=== PATIENT | male | born 1955 | race Caucasian/White ===

== ENCOUNTER → 2024-01-24 | Outpatient (REF) | payer MEDICARE, MEDICAID, SELFPAY ==
[2024-01-24 09:38] LABS: Hematocrit 41.5 % (40-54); Hemoglobin 13.3 g/dL (13.0-16.5); Mean Corpuscular Hgb 29.3 pg (27.0-32.0); Mean Corpuscular Volume 91.4 fL (80-94); Mean Platelet Vol. 10.3 fl (6.2-12.0); Platelet Count 315 K/mm3 (150-450); RBC Distribution Width SD 43.4 fl (35.1-43.9); Red Blood Count 4.54 M/mm3 (4.6-6.2); White Blood Count 6.9 K/mm3 (4.4-11.0)
[2024-01-24 10:08] LABS: ALB/GLOB Ratio 0.9 RATIO (0.9-2.4); AST(SGOT) 23 U/L (15-37); Alanine Aminotransfer ALT/SGPT 22 U/L (16-61); Albumin, Serum 3.4 g/dL (3.2-5.0); Alkaline Phosphatase 74 U/L (45-117); Anion Gap 6 (5-15); BUN 23 mg/dL (7-18); Calcium,Total 9.5 mg/dL (8.5-10.1); Chloride 105 mmol/L (98-107); Cholesterol 112 mg/dL (200); EST Glomerular Filtration Rate 79 mL/min (>60); Est Glom Filt Rate - Afr Amer 96 mL/min (>60); Globulin 3.7 g/dL (2.2-4.2); Glucose 82 mg/dL (74-106); High Density Lipoprotein 28 mg/dL; Potassium 3.7 mmol/L (3.5-5.1); Protein, Total 7.1 g/dL (6.4-8.2); Sodium Level 139 mmol/L (136-145); Triglycerides 112 mg/dL; Very Low Density Lipoprotein 22 mg/dL (5-40)
== END ==
LOC: OLS.ACW300 05:00
PROVIDERS: Visit Provider Family Medicine
DX: Z79.899 Other long term (current) drug therapy (principal); D73.5 Infarction of spleen; K20.90 Esophagitis, unspecified without bleeding; R53.1 Weakness; R53.81 Other malaise
CPT/HCPCS: 36415; 80053; 80061; 83695; 85027

== ENCOUNTER → 2024-01-26 | Outpatient (REF) | payer MEDICARE, MEDICAID, SELFPAY ==
[2024-01-26 10:10] LABS: Anion Gap 5 (5-15); BUN 24 mg/dL (7-18); BUN/Creat Ratio 24.6 RATIO (10-20); Chloride 105 mmol/L (98-107); Creatinine, Serum 0.97 mg/dL (0.70-1.30); EST Glomerular Filtration Rate 81 mL/min (>60); Est Glom Filt Rate - Afr Amer 98 mL/min (>60); Glucose 84 mg/dL (74-106); Sodium Level 139 mmol/L (136-145)
== END ==
LOC: OLS.ACW300 05:00
PROVIDERS: Visit Provider Family Medicine
DX: Z79.899 Other long term (current) drug therapy (principal)
CPT/HCPCS: 36415; 80048

== ENCOUNTER → 2024-06-08 | Outpatient (REF) | payer MEDICARE, MEDICAID, SELFPAY ==
[2024-06-08 08:39] LABS: Hemoglobin 12.6 g/dL (13.0-16.5); Mean Corp Hgb Conc 32.3 g/dL (32-36); Mean Corpuscular Hgb 29.5 pg (27.0-32.0); Mean Corpuscular Volume 91.3 fL (80-94); Mean Platelet Vol. 9.9 fl (6.2-12.0); Platelet Count 274 K/mm3 (150-450); RBC Distribution Width SD 43.3 fl (35.1-43.9); Red Blood Count 4.27 M/mm3 (4.6-6.2); White Blood Count 7.4 K/mm3 (4.4-11.0)
[2024-06-08 08:56] LABS: Anion Gap 3 (5-15); BUN 33 mg/dL (7-18); BUN/Creat Ratio 36.1 RATIO (10-20); Chloride 107 mmol/L (98-107); Creatinine, Serum 0.92 mg/dL (0.70-1.30); EST Glomerular Filtration Rate 87 mL/min (>60); Est Glom Filt Rate - Afr Amer 106 mL/min (>60); Glucose 98 mg/dL (74-106); Potassium 4.2 mmol/L (3.5-5.1); Sodium Level 140 mmol/L (136-145)
== END ==
LOC: OLS.ACW300 05:00
PROVIDERS: Visit Provider Family Medicine
DX: Z79.899 Other long term (current) drug therapy (principal)
CPT/HCPCS: 36415; 80048; 85027

== ENCOUNTER → 2024-08-16 | Outpatient (REF) | payer MEDICARE, MEDICAID, SELFPAY ==
[2024-08-16 07:42] LABS: AST(SGOT) 12 U/L (15-37); Alanine Aminotransfer ALT/SGPT 18 U/L (16-61); Albumin, Serum 3.5 g/dL (3.2-5.0); Alkaline Phosphatase 77 U/L (45-117); Bilirubin, Direct 0.15 mg/dL (0.00-0.30); Cholesterol 121 mg/dL (200); Globulin 3.5 g/dL (2.2-4.2); High Density Lipoprotein 29 mg/dL; Triglycerides 104 mg/dL; Very Low Density Lipoprotein 21 mg/dL (5-40)
== END ==
LOC: OLS.ACW300 05:00
PROVIDERS: Visit Provider Family Medicine
DX: D73.5 Infarction of spleen (principal); K20.90 Esophagitis, unspecified without bleeding; K31.84 Gastroparesis; R13.12 Dysphagia, oropharyngeal phase; R53.1 Weakness; R53.81 Other malaise; Z74.1 Need for assistance with personal care; Z79.899 Other long term (current) drug therapy
CPT/HCPCS: 36415; 80061; 80076

== ENCOUNTER → 2024-09-18 | Outpatient (REF) | payer MEDICARE, MEDICAID, SELFPAY ==
[2024-09-18 09:28] LABS: Hematocrit 38.4 % (40-54); Hemoglobin 12.5 g/dL (13.0-16.5); Mean Corp Hgb Conc 32.6 g/dL (32-36); Mean Corpuscular Hgb 29.8 pg (27.0-32.0); Mean Corpuscular Volume 91.6 fL (80-94); Mean Platelet Vol. 9.7 fl (6.2-12.0); Platelet Count 283 K/mm3 (150-450); RBC Distribution Width CV 12.8 % (11.6-14.6); RBC Distribution Width SD 42.8 fl (35.1-43.9); Red Blood Count 4.19 M/mm3 (4.6-6.2)
== END ==
LOC: OLS.ACW300 05:00
PROVIDERS: Visit Provider Family Medicine
DX: D73.5 Infarction of spleen (principal); K20.90 Esophagitis, unspecified without bleeding; K31.84 Gastroparesis; R13.12 Dysphagia, oropharyngeal phase; R53.1 Weakness; R53.81 Other malaise
CPT/HCPCS: 36415; 85027

== ENCOUNTER → 2024-12-17 05:00 | Outpatient (REF) | payer MEDICARE, MEDICAID, SELFPAY ==
[2024-12-17 09:38] LABS: AST(SGOT) 14 U/L (15-37); Alanine Aminotransfer ALT/SGPT 21 U/L (16-61); Albumin, Serum 3.2 g/dL (3.2-5.0); Alkaline Phosphatase 75 U/L (45-117); Anion Gap 5 (5-15); BUN 25 mg/dL (7-18); BUN/Creat Ratio 27.8 RATIO (10-20); Bilirubin, Direct 0.17 mg/dL (0.00-0.30); Chloride 106 mmol/L (98-107); Cholesterol 95 mg/dL (200); EST Glomerular Filtration Rate 89 mL/min (>60); Est Glom Filt Rate - Afr Amer 108 mL/min (>60); Globulin 3.7 g/dL (2.2-4.2); Glucose 85 mg/dL (74-106); High Density Lipoprotein 31 mg/dL; Protein, Total 6.9 g/dL (6.4-8.2); Sodium Level 140 mmol/L (136-145); Triglycerides 93 mg/dL; Very Low Density Lipoprotein 19 mg/dL (5-40)
== END ==
LOC: OLS.ACW300 05:00
PROVIDERS: Visit Provider Family Medicine
DX: D73.5 Infarction of spleen (principal); K20.90 Esophagitis, unspecified without bleeding; K31.84 Gastroparesis; Z74.1 Need for assistance with personal care; R13.12 Dysphagia, oropharyngeal phase; R53.1 Weakness; R53.81 Other malaise
CPT/HCPCS: 36415; 80048; 80061; 80076

== ENCOUNTER → 2025-02-06 | Outpatient (REF) | payer MEDICARE, MEDICAID, SELFPAY ==
[2025-02-06 09:54] LABS: Hematocrit 36.9 % (40-54); Hemoglobin 12.2 g/dL (13.0-16.5); Mean Corp Hgb Conc 33.1 g/dL (32-36); Mean Corpuscular Hgb 29.8 pg (27.0-32.0); Mean Corpuscular Volume 90.2 fL (80-94); Mean Platelet Vol. 9.8 fl (6.2-12.0); Platelet Count 385 K/mm3 (150-450); RBC Distribution Width CV 12.1 % (11.6-14.6); RBC Distribution Width SD 39.9 fl (35.1-43.9); Red Blood Count 4.09 M/mm3 (4.6-6.2); White Blood Count 8.3 K/mm3 (4.4-11.0)
[2025-02-06 10:11] LABS: ALB/GLOB Ratio 1.2 RATIO (0.9-2.4); AST(SGOT) 18 U/L (<=37); Alanine Aminotransfer ALT/SGPT 18 U/L (<=46); Albumin, Serum 3.8 g/dL (3.4-4.8); Alkaline Phosphatase 81 U/L (40-129); Anion Gap 10 (5-15); BUN 26 mg/dL (4-19); BUN/Creat Ratio 28.2 RATIO (10-20); Calcium,Total 9.1 mg/dL (7.6-11.0); Carbon Dioxide 28.1 mmol/L (21.0-32.0); Chloride 101 mmol/L (98-108); EST Glomerular Filtration Rate 92 (>60); Globulin 3.1 g/dL (2.2-4.2); Glucose 103 mg/dL (70-99); Potassium 4.6 mmol/L (3.3-5.1); Protein, Total 6.9 g/dL (5.9-8.4); Sodium Level 138 mmol/L (133-145); Total Bilirubin 0.39 mg/dL (0.00-1.30)
== END ==
LOC: OLS.ACW100 05:00
PROVIDERS: Visit Provider Family Medicine
DX: D73.5 Infarction of spleen (principal); K20.90 Esophagitis, unspecified without bleeding; K31.84 Gastroparesis; R13.12 Dysphagia, oropharyngeal phase; R53.1 Weakness; R53.81 Other malaise
CPT/HCPCS: 36415; 80053; 85027

== ENCOUNTER → 2025-04-16 05:00 | Outpatient (REF) | payer MEDICARE, MEDICAID, SELFPAY ==
--- OUTSIDE RECORDS SUMMARY | 2025-04-16 04:21 | XMS RPT_ITS | CCD ---
Author Organization [facility] Care Team Providers Care C D Still Operator Name Role Phone Unavailable Primary Care Provider Unavailcitlalli e Nisha BANKS, Teodoro Arzate Primary Care Provider Teodoro Cameron MD Primary Care Provider Kelsey Sanchez Attending Unavailable Kelsey Sanchez Attending Unavailable Kelsey Sanchez Attending Unavailable Kelsey Sanchez Attending Unavailable Kelsey Sanchez Attending Unavailable Kelsey Stevens MD Primary Care Provider OMEGA FLORES Referring Unavailable SHIRA GARCIA Attending Unavailable BIANKATEODORO Primary Care Unavailable KELSEY STEVENS Primary Care Unavailable RADHA OLGUIN Attending Unavailable KELSEY STEVENS Primary Care Unavailable SANTO SALES Attending Unavailable [facility] Primary Care Unavailable RACHAEL MALHOTRA Attending Unavailable Allergies Allergy Classification Reported Allergen(s) Allergy Type Date of Onset Reaction(s) Facility (16 sources) bee venom Propensity to adverse reactions to drug 7 Anaphylaxis [facility] (1 source) Erythromycin Base Propensity to adverse reactions to drug 7 Other (See Comments) [facility] Work Phone: (20 sources) Erythromycin Drug Allergy 3 Itching [facility] Medications Current Medications Medication Drug Class(es) Dates Sig (Normalized) Sig (Original) amLODIPine 10 mg oral tablet (20 sources) Dihydropyridine Calcium Channel Courtney Start: 02-10-2023 End: 03-23-2023 take 1 tablet by mouth once daily amLODIPine (Norvasc) 10 MG tablet Take 1 tablet (10 mg) by mouth daily. Do not start before February 21, 2023. 30 tablet 02/21/2023 Active Start: 02-08-2023 End: 02-09-2023 take 5 mg by mouth once daily 5 mg, Oral, Daily, First dose on Tue02/08/23 at 1515 apixaban 5 mg oral tablet (20 sources) Factor Xa Inhibitor Start: 03-17-2023 take 1 tablet by mouth twice daily apixaban (Eliquis) 5 MG tablet Take 1 tablet (5 mg) by mouth 2 times daily. Do not start before March 17, 2023. 60 tablet 03/17/2023 Active Start: 03-17-2023 take 1 tablet by ismael th twice daily apixaban (Eliquis) 5 MG tablet Take 1 tablet (5 mg) by mouth 2 times daily. Do not start before March 17, 2023. 60 tablet 0 03/17/2023 Active Start: 03-17-2023 take 1 tablet by ismael th twice daily apixaban (Eliquis) 5 MG tablet Take 1 tablet (5 mg) by mouth 2 times daily. Do not start before March 17, 2023. 60 tablet 0 03/17/2023 Active atorvastatin 40 mg oral tablet (20 sources) HMG-CoA Reductase Inhibitor Start: 02-20-2023 End: 05-21-2023 atorvastatin (Lipitor) 40 MG tablet 1 tablet (40 mg) by Per G Tube route daily. 30 tablet 2 02/20/2023 Active Start: 02-20-2023 End: 05-21-2023 Start: 02-06-2023 End: 02-26-2023 40 mg, Per G Tube, Daily, Fi rst dose on Tue02/06/23 at 2100 Start: 04-05-2017 take 1 tablet by ismael th once daily atorvastatin (LIPITOR) 80 MG tablet Indications: Hyperlipidemia, unspecified hyperlipidemia type Take 1 tablet by mouth daily 90 tablet 3 04/05/2017 Active chlorhexidine gluconate 1.2 mg/ml mouthwash (1 source) Start: 01-26-2022 End: 02-09-2022 take 15 mL by mouth twice daily chlorhexidine (PERIDEX) 0.12 % solution Take 15 mLs by mouth 2 times daily for 14 days 420 mL 0 01/26/2022 02/09/2022 Active escitalopram 5 mg oral tablet (20 sources) Serotonin Reuptake Inhibitor Start: 06-29-2023 escitalopram (Lexapro) 5 MG tablet 06/29/2023 Active gabapentin (20 sources) Anti-epileptic Agent take 200 mg by mouth in the morning GABAPENTIN PO Take 200 mg by mouth in the morning and 200 mg in the evening. Active End: 12-21-2023 take 1 capsule by mouth in the morning gabapentin (Neurontin) 100 MG capsule Take 100 mg by mouth in the morning and 100 mg in the evening. 0 12/21/2023 Discontinued (Therapy completed) take 200 mg by mouth in the morning GABAPENTIN PO Take 200 mg by mouth in the morning and 200 mg in the evening. 0 Active hydroCHLOROthiazide 12.5 mg oral tablet (1 source) Thiazide Diuretic Start: 02-08-2017 take 1 tablet by mouth once daily hydrochlorothiazide (HYDRODIURIL) 12.5 MG tablet Indications: Coronary artery disease involving [place] coronary artery of [place] heart without angina pectoris Take 1 tablet by mouth daily 90 tablet 0 02/08/2017 Active lisinopril 20 mg oral tablet (1 source) Angiotensin Converting Enzyme Inhibitor Start: 08-31-2017 lisinopril (PRINIVIL;ZESTRIL) 20 MG tablet Indications: Coronary artery disease involving [place] coronary artery of [place] heart without angina pectoris TAKE 1 TABLET DAILY 90 tablet 3 08/31/2017 Active loratadine 10 mg disintegrating oral tablet (12 sources) take 1 tablet by mouth once daily loratadine (Claritin Reditabs) 10 MG disintegrating tablet Take 10 mg by mouth daily. Active melatonin 5 mg oral tablet (20 sources) Start: 02-08-2023 End: 03-11-2023 take 1 tablet by mouth once daily as needed for sleep melatonin 5 MG tablet Take 1 tablet (5 mg) by mouth Nightly as needed (sleep). 0 02/20/2023 Active metoclopramide 5 mg oral tablet (20 sources) Dopamine-2 Receptor Antagonist Start: 06-27-2023 take 1 tablet by mouth three times daily metoclopramide (Reglan) 5 MG tablet Take 5 mg by mouth 3 times daily. 06/27/2023 Active Start: 02-12-2023 End: 02-14-2023 take 5 mg intravenously every six hours 5 mg, IntraVENous, Every 6 hours, First dose on 02/12/23 at 1015, For 2 days nitroglycerin 0.4 mg subling ual tablet (1 source) Nitrate Vasodilator nitroGLYCERI N (NITROSTAT) 0.4 MG SL tablet Indications: Coronary artery disease involving [place] coronary artery of [place] heart without angina pectoris Place 0.4 mg under the tongue every 5 minutes as needed for Chest pain up to max of 3 total doses. If no relief, call 911. 0 Active Oxygen (20 sources) oxygen (O2) gas Inhale 2 L/min continuous. via nasal canula Active oxygen (O2) gas Inhale 2 L/min continuous. via nasal canula 0 Active pantoprazole 40 mg delayed release oral tablet (15 sources) Proton Pump Inhibitor Start: 12-28-2023 pantoprazole (ProtoNix) 40 MG EC tablet 40 mg 2 times daily. 12/28/2023 Active penicillin G potassium 5 Million Units in dextrose 5 % 100 mL IVPB (mini-bag) (1 source) Start: 01-26-2022 penicillin G potassium 5 Million Units in dextrose 5 % 100 mL IVPB (mini-bag) penicillin v potassium 500 mg oral tablet (1 source) Start: 01-26-2022 End: 02-05-2022 take 1 tablet by mouth four times daily penicillin v potassium (VEETID) 500 MG tablet Take 1 tablet by mouth 4 times daily for 10 days 40 tablet 0 01/26/2022 02/05/2022 Active potassium chloride 1.33 meq/ml oral solution (20 sources) Start: 01-20-2024 Potassium Chlo ride 20 MEQ/15ML (10%) solution 10 mEq daily. 01/20/2024 Active Start: 03-08-2023 End: 03-10-2023 potassium chloride (Klor-Con ) packet 40 mEq Start: 02-11-2023 End: 02-11-2023 40 mEq, Per G Tube, Once, On Tue02/11/23 at 0945, For 1 dose Dissolve each packet in 4 ounces of water = 5 mEq per 1 oz fluid. varenicline 0.5 mg oral tablet (1 source) Partial Cholinergic Nicotinic Agonist Start: 03-17-2017 varenicline (CHANTIX STARTING MONTH ) 0.5 MG X 11 & 1 MG X 42 tablet Take by mouth. 1 each 1 03/17/2017 Active Completed/Discontinued Medications Medication Drug Class(es) Dates Sig (Normalized) Sig (Original) Acetaminophen (9 sources) Start: 03-06-2023 End: 03-11-2023 take 1 tablet by mouth every six hours as needed for pain and fever acetaminophen (Tylenol) tablet 650 mg Start: 03-05-2023 End: 03-05-2023 acetaminophen (Tylenol) tabl et 1,000 mg Start: 02-20-2023 End: 03-11-2023 take 2 tablets by mouth every six hours as needed for pain and fever acetaminophen (Tylenol) 325 MG tablet Take 2 tablets (650 mg) by mouth every 6 hours as needed for mild pain (1-3) or fever (For temp greater than 100.4 F (38 C)) for up to 10 days. 30 tablet 0 02/20/2023 03/11/2023 Discontinued (Stop taking at discharge) albuterol 0.833 mg/ml / ipratropium bromide 0.167 mg/ml inhalation solution (20 sources) Anticholinergic, beta2-Adrenergic Agonist Start: 03-06-2023 End: 03-11-2023 3 mL, Nebulization, 3 times daily, First dose on Tue03/06/23 at 0800 Start: 02-25-2023 End: 06-21-2024 ipratropium-albuterol (Duo-N eb) 0.5-2.5 mg/3 mL nebulizer solution Take 3 mL by nebulization in the morning and 3 mL at noon and 3 mL in the evening. 180 mL 11 02/25/2023 06/21/2024 Discontinued Start: 02-10-2023 End: 02-13-2023 3 mL, Nebulization, 2 times daily, First dose (after last modification) on Tue02/10/23 at 0800 Start: 02-09-2023 End: 02-10-2023 3 mL, Nebulization, 4 times daily, First dose on Tue02/09/23 at 1600 Start: 02-05-2023 End: 02-26-2023 3 mL, Nebulization, 3 times daily, First dose on Tue02/24/23 at 1045 aspirin 81 mg chewable tablet (16 sources) Platelet Aggregation Inhibitor, Nonsteroidal Anti-inflammatory Drug Start: 02-21-2023 End: 03-17-2023 81 mg, Per G Tube, Daily, First dose on Tue03/06/23 at 0900 Start: 02-21-2023 End: 03-17-2023 Start: 02-06-2023 End: 02-26-2023 81 mg, Per G Tube, Daily, Fi rst dose on 02/20/23 at 1145 Start: 02-05-2023 End: 02-05-2023 take 300 mg rectal route once 300 mg, Rectal, Once, On 02/05/23 at 1335, For 1 dose take 1 tablet by ismael once daily aspirin 81 MG EC tablet Indications: Coronary artery disease involving [place] coronary artery of [place] heart without angina pectoris Take 81 mg by mouth daily 0 Active bisacodyl 10 mg rectal suppository (4 sources) Stimulant Laxative Start: 02-05-2023 End: 02-26-2023 take 10 mg rectal route once daily 10 mg, Rectal, Daily, First dose on Tue02/09/23 at 1330 calcium chloride 0.0014 meq/ml / potassium chloride 0.004 meq/ml / sodium chloride 0.103 meq/ml / sodium lactate 0.028 meq/ml injectable solution (6 sources) Start: 03-06-2023 End: 03-07-2023 lactated Ringer's infusion Start: 02-13-2023 End: 02-17-2023 take 50 mL intravenously every hour 50 mL/hr, IntraVENous, Continuous, Starting on 02/13/23 at 0845 Start: 02-05-2023 End: 02-06-2023 take 50 mL intravenously every hour 50 mL/hr, IntraVENous, Continuous, Starting on 02/05/23 at 1700 carvedilol 6.25 mg oral tablet (20 sources) alpha-Adrenergic Courtney, beta-Adrenergic Courtney Start: 03-06-2023 End: 03-11-2023 25 mg, Per G Tube, 2 times daily with meals, First dose on Tue03/06/23 at 0800 Start: 02-20-2023 End: 03-22-2023 carvedilol (Coreg) 25 MG tab let 1 tablet (25 mg) by Per G Tube route in the morning and 1 tablet (25 mg) in the evening. Take with meals. 60 tablet 02/20/2023 Active Start: 02-20-2023 End: 03-22-2023 Start: 02-08-2023 End: 02-26-2023 25 mg, Per G Tube, 2 times d aily with meals, First dose (after last modification) on Tue02/08/23 at 1700 Start: 02-08-2023 take 12.5 mg by mouth once 12. 5 mg, Oral, Once, On Tue02/08/23 at 1145, For 1 dose Start: 02-08-2023 End: 02-08-2023 12.5 mg, Per G Tube, 2 times daily with meals, First dose on Tue02/08/23 at 0315 12 hr chlorpheniramine polistirex 1.6 mg/ml / HYDROcodone polistirex 2 mg/ml extended release suspension (2 sources) Histamine-1 Receptor Antagonist, Opioid Agonist Start: 02-20-2023 End: 02-26-2023 5 mL, Per G Tube, Every 12 hours PRN, cough, congestion, rhinitis, Starting on Tue02/20/23 at 1136 Do not administer more often than every 12 hours. Shake well. diatrizoate meglumine-sodium (Gastrografin) 66-10 % solution 30 mL (2 sources) Start: 03-11-2025 End: 03-11-2025 take 30 mL by mouth once 30 mL, Oral, Once, On Tue03/11/25 at 1250, For 1 dose, Inject into gastrostomy tube at time of XR to confirm placement diatrizoate meglumine-sodium (Gastrografin) 66-10 % solution 60 mL (2 sources) Start: 04-11-2023 End: 04-11-2023 diatrizoate meglumine-sodium (Gastrografin) 66-10 % solution 60 mL docusate sodium 50 mg / sennosides, mcc 8.6 mg oral tablet (2 sources) Start: 02-09-2023 End: 02-26-2023 take 2 tablets by mouth twice daily 2 tablet, Oral, 2 times daily, First dose on Tue02/09/23 at 1400 0.4 ml enoxaparin sodium 100 mg/ml prefilled syringe (2 sources) Low Molecular Weight Heparin Start: 03-06-2023 End: 03-11-2023 inject 40 mg by subcutaneous injection every twenty-four hours 40 mg, SubCUTAneous, Every 24 hours scheduled (Daily), First dose on Tue03/06/23 at 0900 Indication of Use: Prophylaxis-DVT/PE Indications: Prophylaxis of Venous Thromboembolism 2 ml famotidine 10 mg/ml injection (2 sources) Histamine-2 Receptor Antagonist Start: 03-04-2023 End: 03-04-2023 famotidine (Pepcid) injection 20 mg 4 ml furosemide 10 mg/ml injection (6 sources) Loop Diuretic Start: 02-23-2023 End: 02-24-2023 40 mg, IntraVENous, Once, On Tue02/24/23 at 1045, For 1 dose Start: 02-17-2023 End: 02-17-2023 20 mg, IntraVENous, Once, On Tue02/17/23 at 1100, For 1 dose 250 ml glucose 50 mg/ml / sodium chloride 9 mg/ml injection (2 sources) Start: 03-06-2023 End: 03-06-2023 125 mL/hr, IntraVENous, Continuous, Starting on Tue03/06/23 at 0445, For 8 hours 1 liter then discontinue 0.5 ml heparin sodium, porcine 41500 unt/ml prefilled syringe (2 sources) Unfractionated Heparin, Anti-coagulant Start: 02-07-2023 End: 02-26-2023 inject 1 dose by subcutaneous injection three times daily 5,000 Units, SubCUTAneous, Every 8 hours scheduled (3 times per day), First dose on Tue02/07/23 at 1400 1 ml hydrALAZINE hydrochloride 20 mg/ml injection (8 sources) Arteriolar Vasodilator Start: 02-08-2023 End: 02-26-2023 take 20 mg intravenously every four hours as needed 20 mg, IntraVENous, Every 4 hours PRN, SBP > 160, Starting on Tue02/10/23 at 1253 Start: 02-05-2023 End: 02-07-2023 take 10 mg intravenously every four hours as needed for hypertension 10 mg, IntraVENous, Every 4 hours PRN, high blood pressure, SBP > 180, 2nd line, Starting on Tue02/06/23 at 0838 iopamidol (Isovue-370) 76 % injection 75 mL (4 sources) Start: 03-05-2023 End: 03-05-2023 iopamidol (Isovue-370) 76 % injection 75 mL Start: 03-04-2023 End: 03-04-2023 iopamidol (Isovue-370) 76 % injection 75 mL ketamine 10 mg/ml injectable solution (4 sources) General Anesthetic Start: 02-09-2023 End: 02-09-2023 50 mg, IntraVENous, Once, On Tue02/09/23 at 1200, For 1 dose For procedural sedation Give IV doses slowly over 1-3 minutes (max 0.5 mg/kg/min). Start: 02-09-2023 End: 02-09-2023 50 mg, IntraVENous, Once, On Tue02/09/23 at 1200, For 1 dose For procedural sedation Give IV doses slowly over 1-3 minutes (max 0.5 mg/kg/min). Start: 02-09-2023 End: 02-09-2023 Code/trauma/sedation medicat ion, Starting on Tue02/09/23 at 1118 labetalol hydrochloride 5 mg/ml injectable solution (12 sources) beta-Adrenergic Courtney Start: 02-08-2023 End: 02-26-2023 take 20 mg intravenously every four hours as needed 20 mg, IntraVENous, Every 4 hours PRN, SBP > 160, second line, Starting on Jazmin 02/10/23 at 1253 Start: 02-07-2023 End: 02-07-2023 10 mg, IntraVENous, Once, On Tue02/07/23 at 1930, For 1 dose Start: 02-07-2023 End: 02-07-2023 10 mg, IntraVENous, Once, On Tue02/07/23 at 1930, For 1 dose Start: 02-06-2023 End: 02-07-2023 take 10 mg intravenously every four hours as needed for hypertension 10 mg, IntraVENous, Every 4 hours PRN, high blood pressure, SBP > 180, 1st line, Starting on 02/06/23 at 0839 Start: 02-05-2023 End: 02-05-2023 10 mg, IntraVENous, Every 10 min PRN, high blood pressure, SBP > 180, 1st line, Starting on 02/05/23 at 1519 Start: 02-05-2023 End: 02-05-2023 10 mg, IntraVENous, Every 10 min PRN, high blood pressure, Starting on 02/05/23 at 1220, For 2 doses Give over 1-2 minutes, if SBP greater than 185 mmHg or DBP greater than 110 mmHg on 2 consecutive measurements immediately prior to planned administration of thrombolytic. May repeat x1 if SBP greater than 185 mmHg or DBP greater than 105 mmHg. Notify physician if SBP greater than 185 mmHg or DBP greater than 110 mmHg after second dose. Hold for HR less than 65 bpm and notify provider. 10 ml lidocaine hydrochloride 10 mg/ml injection (4 sources) Antiarrhythmic, Amide Local Anesthetic Start: 02-16-2023 End: 02-16-2023 As needed, Starting on Tue02/16/23 at 1519, Intraprocedure Start: 02-06-2023 End: 02-06-2023 apply 0.5 mL topically once Topical, Once, On Tue at 1245, For 1 dose Draw up and instill 0.5 mL into the nares 5 minutes before inserting tube. If oxymetazoline is also ordered, instill the Lidocaine jelly after instilling the oxymetazoline spray. 50 ml mannitol 250 mg/ml injection (4 sources) Osmotic Diuretic Start: 02-12-2023 End: 02-12-2023 Starting on 02/12/23 at 0119, For 1 dose Ashley Osei: chandrika override Start: 02-11-2023 End: 02-12-2023 74 g (rounded from 73.9 g = 1 g/kg 73.9 kg), IntraVENous, Every 8 hours, First dose on Tue02/11/23 at 0900, For 24 hours Use in-line filter. Administer over 30-60 minutes. metoprolol tartrate 50 mg oral tablet (5 sources) beta-Adrenergic Courtney Start: 02-07-2023 End: 02-08-2023 take 50 mg by mouth twice daily 50 mg, Oral, 2 times daily, First dose (after last modification) on Tue02/07/23 at 2100 Start: 02-06-2023 End: 02-07-2023 take 25 mg by mouth twice daily 25 mg, Oral, 2 times d aily, First dose on Tue02/06/23 at 1400 Start: 08-31-2017 metoprolol tar trate (LOPRESSOR) 50 MG tablet Indications: Coronary artery disease involving [place] coronary artery of [place] heart without angina pectoris TAKE 1 TABLET TWICE A DAY 180 tablet 3 08/31/2017 Active nystatin 727078 unt/ml oral suspension (4 sources) Polyene Antifungal Start: 02-15-2023 End: 02-21-2023 Start: 02-15-2023 End: 02-26-2023 500,000 Units (5 mL), Swish & Spit, 3 times daily, First dose on Tue02/15/23 at 1030 omeprazole 40 mg delayed release oral capsule (6 sources) Proton Pump Inhibitor Start: 12-28-2023 End: 06-21-2024 take 1 capsule by mouth in the morning omeprazole (PriLOSEC) [address] capsule Take 1 capsule (40 mg) by mouth in the morning and 1 capsule (40 mg) in the evening. Do not crush or chew.. 60 capsule 3 12/28/2023 06/21/2024 Discontinued ondansetron ODT (Zofran-ODT) disintegrating tablet 4 mg (2 sources) Start: 03-06-2023 End: 03-11-2023 take 1 tablet by mouth every eight hours as needed for nausea and vomiting ondansetron ODT (Zofran-ODT) disintegrating tablet 4 mg oxyCODONE hydrochloride 5 mg oral tablet (2 sources) Opioid Agonist Start: 03-07-2023 End: 03-11-2023 take 1 tablet by mouth every six hours as needed for pain and pain oxyCODONE (Roxicodone) immediate release tablet 5 mg oxymetazoline hydrochloride 0.5 mg/ml nasal spray (2 sources) Start: 02-06-2023 End: 02-06-2023 2 spray, Each Nostril, Once, On Tue02/06/23 at 1245, For 1 dose Two sprays in each nares 5 minutes prior to inserting tube. pantoprazole (ProtoNix) injection 40 mg (4 sources) Start: 03-06-2023 End: 03-11-2023 pantoprazole (ProtoNix) injection 40 mg Start: 03-06-2023 End: 03-06-2023 pantoprazole (ProtoNix) inje ction 40 mg piperacillin 3000 mg / tazobactam 375 mg injection (4 sources) Penicillin-class Antibacterial, beta Lactamase Inhibitor Start: 03-06-2023 End: 03-10-2023 take 3375 mg intravenously every eight hours piperacillin-tazobactam (Zosyn) IVPB 3,375 mg Start: 03-05-2023 End: 03-05-2023 piperacillin-tazobactam (Zos yn) IVPB 4.5 g polyethylene glycol 3350 45919 mg powder for oral solution (6 sources) Osmotic Laxative Start: 03-06-2023 End: 03-11-2023 take 17 g by mouth every twenty-four hours as needed for constipation 17 g, Oral, Daily PRN, constipation, Starting on 03/06/23 at 0431 1st line for treatment of constipation - give scheduled if no bowel movement in past 24 hours. Start: 02-13-2023 End: 02-26-2023 17 g, Oral, 2 times daily, F irst dose (after last modification) on 02/13/23 at 0900 Start: 02-09-2023 End: 02-13-2023 17 g, Oral, Daily, First dos e on Tue02/09/23 at 1330 polyvinyl alcohol 0.014 ml/ml ophthalmic solution (2 sources) Start: 02-12-2023 End: 02-26-2023 Both Eyes, As needed, dry eyes, Starting on 02/12/23 at 2025 potassium bicarbonate 20 meq effervescent oral tablet (2 sources) Start: 02-10-2023 End: 02-10-2023 40 mEq, Per G Tube, Once, On Jazmin 02/10/23 at 0945, For 1 dose Completely dissolve tablets in 4 ounces (115mL) of water before administering. Potassium Chloride / Sodium Chloride (2 sources) Start: 03-06-2023 End: 03-06-2023 potassium chloride 20 mEq in sodium chloride 0.9 % 250 mL IVPB 20 ml propofol 10 mg/ml injection (4 sources) General Anesthetic Start: 02-09-2023 End: 02-09-2023 IntraVENous, Code/trauma/sedation medication, Starting on Tue02/09/23 at 1118 Start: 02-09-2023 End: 02-09-2023 take 1 dose intravenously once 200 mg, IntraVENous, at 2.22- 22.17 mL/hr, Once, On Tue02/09/23 at 1000, For 1 dose At bedside for procedural sedation General Anesthetic - do not give without appropriate ventilation support. Do not administer propofol in same IV catheter as blood or plasma. Discard any unused portion of propofol vials and tubing after 12 hours. Titrate Infusion? No Infusion Dose: N/A - Use Bolus Dose Bolus dose (mg): 40 sennosides, mcc 1.76 mg/ml oral solution (2 sources) Start: 02-07-2023 End: 02-09-2023 take 5 mL by mouth once daily 5 mL, Oral, Nightly, First dose on Tue02/07/23 at 2100 5 ml sodium chloride 9 mg/ml injection (20 sources) Start: 12-28-2023 End: 12-28-2023 sodium chloride 0.9 % infusion Start: 12-28-2023 End: 12-28-2023 sodium chloride 0.9% (NS) fl ush 10 mL Start: 03-05-2023 End: 03-05-2023 sodium chloride 0.9 % bolus 1,000 mL Start: 02-11-2023 End: 02-12-2023 500 mL, IntraVENous, at 500 mL/hr, Administer over 1 Hours, PRN, give after every mannitol dose- administer over one hour, Starting on Tue02/11/23 at 0847, For 24 hours Start: 02-07-2023 End: 02-07-2023 300 mL, IntraVENous, Once, O n 02/07/23 at 1015, For 1 dose Over 30 mins Start: 02-05-2023 End: 02-08-2023 take 50 mL intravenously every hour 50 mL/hr, IntraVEN ous, Continuous, Starting on Tue02/06/23 at 1245, For 24 hours Start: 02-05-2023 End: 02-05-2023 250 mL, IntraVENous, at 250 mL/hr, Administer over 1 Hours, Once, On 02/05/23 at 1225, For 1 dose Start: 02-05-2023 End: 02-26-2023 take 5-40 mL intravenously every twelve hours 5-40 mL, IntraVENous, Every 12 hours, First dose on 02/05/23 at 1225 For Line Patency: Peripheral IV = 5 mL; Midline or Central Line = 10 mL/lumen. If following IV push medication, administer flush at same rate as the IV push. Flush volume is determined by type of infusion therapy being given. For non-viscous solutions use: Peripheral IV = 5 mL Midline or Central Line = 10 mL/lumen For viscous solutions (i.e. blood components, parenteral nutrition, contrast media, or after obtaining blood sample) use: Peripheral IV = 10 mL Midline or Central Line = 20 mL/lumen Start: 02-05-2023 End: 02-26-2023 take 50 mL intravenously every hour 50 mL/hr, IntraVEN ous, Continuous, Starting on 02/05/23 at 1225 Start: 02-05-2023 End: 02-26-2023 take 5-40 mL intravenously once as needed 5-40 mL, IntraVENous, PRN, line care, After every IV line use, Starting on 02/05/23 at 1220 For Line Patency: Peripheral IV = 5 mL; Midline or Central Line = 10 mL/lumen. If following IV push medication, administer flush at same rate as the IV push. Flush volume is determined by type of infusion therapy being given. For non-viscous solutions use: Peripheral IV = 5 mL Midline or Central Line = 10 mL/lumen For viscous solutions (i.e. blood components, parenteral nutrition, contrast media, or after obtaining blood sample) use: Peripheral IV = 10 mL Midline or Central Line = 20 mL/lumen Start: 01-26-2022 End: 01-26-2022 0.9 % sodium chloride bolus 200 ml vancomycin 5 mg/ml injection (2 sources) Glycopeptide Antibacterial Start: 03-06-2023 End: 03-07-2023 vancomycin (Vancocin) 1000 mg in dextrose 5% 200 mL IVPB (premix) vancomycin (Vancocin) 1,500 mg in dextrose 5 % 250 mL IVPB (2 sources) Start: 03-05-2023 End: 03-05-2023 vancomycin (Vancocin) 1,500 mg in dextrose 5 % 250 mL IVPB (4 sources) Start: 02-16-2023 End: 02-26-2023 25 mL, Other, IMG once PRN, contrast, Starting on Tue02/16/23 at 1539, For 1 dose Start: 02-05-2023 End: 02-05-2023 take 100 mL intravenously once as needed 100 mL, IntraVENous, IMG once PRN, contrast, Starting on Tue02/05/23 at 1303, For 1 dose (10 sources) Start: 02-09-2023 End: 02-09-2023 40 mEq, IntraVENous, at 130 mL/hr, Administer over 4 Hours, Once, On Tue02/09/23 at 0515, For 1 dose Maximum infusion rate = 10 mEq/hour. Start: 02-05-2023 End: 02-26-2023 take 1 tablet by mouth once daily [Order 1 Start] Name : pantoprazole (ProtoNix) EC tablet 40 mg Signed Summary: 40 mg, Oral, Nightly, First dose on Tue02/05/23 at 2100 Do not crush, chew, or split. [Order 1 End] [Order 2 Start] Name: pantoprazole (ProtoNix) injection 40 mg Signed Summary: 40 mg, IntraVENous, Administer over 2 Minutes, Nightly, First dose on Tue02/05/23 at 2100 Give only if unable to tolerate po. [Order 2 End] Start: 02-05-2023 End: 02-10-2023 take 3000 mg intravenously every six hours 3,000 mg, IntraVENous, at 200 mL/hr, Administer over 30 Minutes, Every 6 hours, First dose on Tue02/05/23 at 1530, For 5 days ADD-[place] bag Suspected Indication (Select all that apply): Aspiration Pneumonia Start: 02-05-2023 End: 02-26-2023 take 4 mg by mouth every eight hours as needed for nausea and vomiting [Order 1 Start] Name: ondansetron ODT (Zofran-ODT) disintegrating tablet 4 mg Signed Summary: 4 mg, Oral, Every 8 hours PRN, nausea, vomiting, Starting on 02/05/23 at 1404 1st Line. If inadequate response within 60 minutes, proceed to next-line agent or contact provider if no further options ordered. Patient should allow tablet to dissolve on tongue. Do not remove from blister pack until just before administering. [Order 1 End] [Order 2 Start] Name: ondansetron (Zofran) injection 4 mg Signed Summary: 4 mg, IntraVENous, Every 6 hours PRN, nausea, vomiting, Starting on 02/05/23 at 1404 1st Line. Give IV if patient is unable to take orally. If inadequate response within 60 minutes, proceed to next-line agent or contact provider if no further options ordered. [Order 2 End] Start: 02-05-2023 End: 02-26-2023 take 650 mg by mouth every six hours as needed for pain and fever [Order 1 Start] Name: acetaminophen (Tylenol) tablet 650 mg Signed Summary: 650 mg, Oral, Every 6 hours PRN, mild pain (1-3), fever, For temp greater than 100.4 F (38 C), Starting on 02/05/23 at 1404 Maximum dose of acetaminophen is 4000 mg from all sources in 24 hours. [Order 1 End] [Order 2 Start] Name: acetaminophen (Tylenol) suppository 650 mg Signed Summary: 650 mg, Rectal, Every 6 hours PRN, mild pain (1-3), fever, For temp greater than 100.4 F (38 C), Starting on 02/05/23 at 1404 Administer if oral route cannot be used. Maximum dose of acetaminophen is 4000 mg from all sources in 24 hours. [Order 2 End] (2 sources) Start: 02-07-2023 End: 02-07-2023 1.65 mg, IntraVENous, IMG on ce PRN, other, Suboptimal echo image, Starting on 02/07/23 at 1446, For 1 dose, CV Procedural Medications Administer up to 1.65 mg via slow IVP for suboptimal echocardiogram enhancement. May administer a calculated dose or diluted 8.5 mL of 0.9% sodium chloride for a total volume of 10 mL. May administer as divided doses to reach optimal image enhancement Problems Active Problems Problem Classification Problem Date Documented Da te Episodic/Chronic Acute cerebrovascular disease (20 sources) Ischemic stroke; Translations: [Cerebral infarction, unspecified] Onset: 3 02-05-2023 Chronic Administrative/social admission (2 sources) Need for assistance with personal care; Translations: [Need for assistance with personal care] Onset: Episodic Complications of surgical procedures or medical care (4 sources) Malfunction of gastrostomy tube; Translations: [Gastrostomy malfunction] Episodic Coronary atherosclerosis and other heart disease (20 sources) Old myocardial infarction; Translations: [Old myocardial infarction] Onset: 4 03-17-2017 Chronic Disorders of lipid metabolism (20 sources) Hyperlipidemia; Translations: [Hyperlipidemia, unspecified] Onset: 7 03-17-2017 Chronic Disorders of teeth and jaw (2 sources) Dental abscess; Translations: [Periapical abscess without sinus] Episodic Esophageal disorders (15 sources) Ulcer of esophagus; Translations: [Ulcer of esophagus without bleeding] Onset: 4 01-23-2024 Chronic Fluid and electrolyte disorders (2 sources) Hypokalemia; Translations: [Hypokalemia] Episodic Gastroduodenal ulcer (except hemorrhage) (15 sources) Gastric ulcer; Translations: [Gastric ulcer, unspecified as acute or chronic, without hemorrhage or perforation] Onset: 4 01-23-2024 Chronic Intestinal obstruction without hernia (4 sources) Fecal impaction; Translations: [Fecal impaction] Onset: 5 03-19-2025 Episodic Late effects of cerebrovascular disease (4 sources) 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; Translations: [Dysphagia following cerebral infarction] Onset: 4 12-21-2023 Chronic Nausea and vomiting (8 sources) Projectile vomiting; Translations: [Projectile vomiting] Onset: 5 07-19-2023 Episodic Nonspecific chest pain (2 sources) Chest pain; Translations: [Chest pain, unspecified] Episodic Other aftercare (3 sources) Long-term current use of anticoagulant; Translations: [terminal carman (current) use of anticoagulants] 11-21-2023 Episodic Other and ill-defined heart disease (2 sources) Atrial thrombosis ; Translations: [Intracardiac thrombosis, not elsewhere classified] 12-21-2023 Chronic Other and ill-defined heart disease (1 source) Thrombus of left atrium; Translations: [Intracardiac thrombosis, not elsewhere classified] 01-23-2024 Chronic Other and ill-defined heart disease (2 sources) Intracardiac thrombosis, not elsewhere classified; Translations: [Intracardiac thrombosis, not elsewhere classified] Onset: 4 Chronic Other circulatory disease (1 source) History of cerebrovascular accident; Translations: [Personal history of transient ischemic attack (TIA), and cerebral infarction without residual deficits] 01-23-2024 Episodic Other disorders of stomach and duodenum (2 sources) Gastroparesis; Translations: [Gastroparesis] Onset: 5 Episodic Other ear and sense organ disorders (1 source) Impacted cerumen of bilateral ears; Translations: [Impacted cerumen, bilateral] 03-30-2024 Episodic Other gastrointestinal disorders (1 source) History of placement of gastrostomy tube; Translations: [Gastrostomy status] 11-21-2023 Chronic Other gastrointestinal disorders (2 sources) Patient encounter status; Translations: [Encounter for attention to gastrostomy] 03-11-2025 Chronic Other gastrointestinal disorders (2 sources) Encounter for attention to gastrostomy; Translations: [Encounter for attention to gastrostomy (HCC)] Onset: 5 Chronic Other gastrointestinal disorders (1 source) Oropharyngeal dysphagia; Translations: [Dysphagia, oropharyngeal phase] 04-20-2023 Episodic Other gastrointestinal disorders (2 sources) Dysphagia, oropharyngeal phase; Translations: [Dysphagia, oropharyngeal phase] Onset: 5 Episodic Other hematologic conditions (2 sources) Infarction of spleen; Translations: [Infarction of spleen] Onset: 4 Episodic Other nervous system disorders (20 sources) Compression of brain; Translations: [Compression of brain] Onset: 3 02-05-2023 Chronic Other nervous system disorders (20 sources) Cerebral edema; Translations: [Cerebral edema] Onset: 3 02-05-2023 Chronic Other nervous system disorders (2 sources) Aphasia; Translations: [Aphasia] Onset: 4 06-21-2024 Chronic Other nervous system disorders (1 source) Aphasia; Translations: [Aphasia] Onset: 4 Chronic Other screening for suspected conditions (not mental disorders or infectious disease) (2 sources) Electrocardiogram abnormal; Translations: [Abnormal electrocardiogram [ECG] [EKG]] Episodic Residual codes; unclassified (2 sources) Obstructive sleep apnea syndrome; Translations: [Obstructive sleep apnea (adult) (pediatric)] 07-19-2023 Chronic Residual codes; unclassified (2 sources) Obstructive sleep apnea (adult) (pediatric); Translations: [Obstructive sleep apnea (adult) (pediatric)] Onset: 4 Chronic Residual codes; unclassified (2 sources) Edema of right lower limb; Translations: [Localized edema] Episodic Respiratory failure; insufficiency; arrest (adult) (3 sources) Dependence on supplemental oxygen; Translations: [Dependence on supplemental oxygen] 11-21-2023 Chronic Unclassified (2 sources) Esophagitis, unspecified without bleeding; Translations: [Esophagitis, unspecified without bleeding] Onset: 5 Past or Other Problems Problem Classification Problem Date Documented Da te Episodic/Chronic Coronary atherosclerosis and other heart disease (20 sources) Stented coronary artery; Translations: [Presence of coronary angioplasty implant and graft] Onset: 03-07-2014 03-17-2017 Episodic Malaise and fatigue (20 sources) Asthenia; Translations: [Other malaise] Onset: 02-19-2023 02-19-2023 Episodic Other and unspecified benign neoplasm (3 sources) Benign tumor of nasopharynx; Translations: [Benign neoplasm of nasopharynx] Onset: 03-30-2024 12-28-2023 Episodic Other and unspecified benign neoplasm (1 source) Benign neoplasm of nasopharynx; Translations: [Benign neoplasm of nasopharynx] Onset: 03-30-2024 Episodic Other hematologic conditions (20 sources) Raised cardiac enzyme or marker; Translations: [Other specified abnormalities of plasma proteins] Onset: 02-05-2023 02-05-2023 Episodic Other injuries and conditions due to external causes (20 sources) Systemic inflammatory response syndrome; Translations: [Systemic inflammatory response syndrome (SIRS) of non-infectious origin without acute organ dysfunction] Onset: 03-08-2023 Episodic Other nervous system disorders (20 sources) Impaired cognition; Translations: [Other symptoms and signs involving cognitive functions and awareness] Onset: 02-19-2023 02-19-2023 Episodic Septicemia (except in labor) (20 sources) Sepsis; Translations: [Sepsis, unspecified organism] Onset: 03-05-2023 Episodic Results Test Name Value Interpretation Reference Range Facility CT ABDOMEN PELVIS WO IV CONT Bernard 03-19-2025 CT ABDOMEN PELVIS WO IV CONTRAST Patient Name: CATINA LAND : 1955 [facility]#: [id number] Exam Date/Time: 03/19/2025 00:33 Procedure: CT ABDOMEN PELVIS WO IV CONTRAST Ordering Provider: OLGUIN BETSY Reason For Exam: Nausea/vomiting CT ABDOMEN AND PELVIS WITHOUT CONTRAST CLINICAL INDICATION: Nausea/vomiting. TECHNIQUE: Transaxial sequence through the abdomen and pelvis without contrast with 3 mm reconstruction. Sagittal coronal reconstruction images included. Dose reduction was employed with automated exposure control. COMPARISON: Two weeks ago FINDINGS: Exam quality: Suboptimal for the evaluation of solid organs due to the lack of intravenous contrast and suboptimal for evaluation of the gastrointestinal tract due to lack of oral contrast. Degraded due to patient's left arm within the gantry resulting in streak artifact. Chest base: Atelectasis at the left lung base. No pleural fluid. Calcification the region of the mitral annulus. Liver: Normal size and contour. No identifiable lesion. Biliary tree: Normal caliber. No calcified gallstones identified Spleen: Normal. Adrenals: Both adrenal glands are enlarged but unchanged, consistent with benign adenomas as noted on prior imaging from 02/16/2023. Pancreas: Unremarkable. Kidneys: Cyst in the upper pole the right kidney again noted measuring 2.5 cm. No left renal lesion. Renal collecting systems: Renal hilar vascular calcifications. There is probably a calculus in the right proximal collecting measuring 0.2 cm. No hydronephrosis or ureteral dilatation. Free fluid: None. Retroperitoneal/mesent lymphadenopathy: None. Aorta: Normal caliber with atherosclerotic calcification. Bowel: Gastrostomy tube remains in adequate position. There is no bowel dilatation or free intraperitoneal air. Normal caliber appendix identified. There is some residual contrast in the appendix and residual contrast within the sigmoid colon and rectum. Extensive retained feces within the rectum with a caliber of as great as 8 cm Abdominal wall: Normal. Bladder: No calculi or filling defects. Pelvic organs/viscera: No mass identified. Pelvic lymphadenopathy: None. Osseous structures: Degenerative change of the lower thoracic and lumbar spine. IMPRESSION: 1. Fecal impaction the rectum 2. Tiny nonobstructing right renal calculus. Report Dictated on Electronically Signed By: Paul Kumar MD Electronically Signed Date/Time: 03/19/2025 1:24 AM EDT Nausea,vomiting and possible UTI per notes Normal [facility] CT Abdomen and Pelvis WO con traston 03-19-2025 1. Fecal impaction t he rectum 2. Tiny nonobstructing right renal calculus. Report Dictated on Electronically Signed By: Paul Kumar MD Electronically Signed Date/Time: 03/19/2025 1:24 AM EDT [facility] Patient Name: CATINA LAND : 1955 Exam Date/Time: 03/19/2025 00:33 Procedure: CT ABDOMEN PELVIS WO IV CONTRAST Ordering Provider: OLGUIN BETSY Reason For Exam: Nausea/vomiting CT ABDOMEN AND PELVIS WITHOUT CONTRAST CLINICAL INDICATION: Nausea/vomiting. TECHNIQUE: Transaxial sequence through the abdomen and pelvis without contrast with 3 mm reconstruction. Sagittal coronal reconstruction images included. Dose reduction was employed with automated exposure control. COMPARISON: Two weeks ago FINDINGS: Exam quality: Suboptimal for the evaluation of solid organs due to the lack of intravenous contrast and suboptimal for evaluation of the gastrointestinal tract due to lack of oral contrast. Degraded due to patient's left arm within the gantry resulting in streak artifact. Chest base: Atelectasis at the left lung base. No pleural fluid. Calcification the region of the mitral annulus. Liver: Normal size and contour. No identifiable lesion. Biliary tree: Normal caliber. No calcified gallstones identified Spleen: Normal. Adrenals: Both adrenal glands are enlarged but unchanged, consistent with benign adenomas as noted on prior imaging from 02/16/2023. Pancreas: Unremarkable. Kidneys: Cyst in the upper pole the right kidney again noted measuring 2.5 cm. No left renal lesion. Renal collecting systems: Renal hilar vascular calcifications. There is probably a calculus in the right proximal collecting measuring 0.2 cm. No hydronephrosis or ureteral dilatation. Free fluid: None. Retroperitoneal/mesent lymphadenopathy: None. Aorta: Normal caliber with atherosclerotic calcification. Bowel: Gastrostomy tube remains in adequate position. There is no bowel dilatation or free intraperitoneal air. Normal caliber appendix identified. There is some residual contrast in the appendix and residual contrast within the sigmoid colon and rectum. Extensive retained feces within the rectum with a caliber of as great as 8 cm Abdominal wall: Normal. Bladder: No calculi or filling defects. Pelvic organs/viscera: No mass identified. Pelvic lymphadenopathy: None. Osseous structures: Degenerative change of the lower thoracic and lumbar spine. [facility] Paul Kumar MD - 03/19/2025 [facility] 1955 [id number] Exam Date/Time: 03/19/2025 00:33 Procedure: CT ABDOMEN PELVIS WO IV CONTRAST Ordering Provider: OLGUIN BETSY Reason For Exam: Nausea/vomiting CT ABDOMEN AND PELVIS WITHOUT CONTRAST CLINICAL INDICATION: Nausea/vomiting. TECHNIQUE: Transaxial sequence through the abdomen and pelvis without contrast with 3 mm reconstruction. Sagittal coronal reconstruction images included. Dose reduction was employed with automated exposure control. COMPARISON: Two weeks ago FINDINGS: Exam quality: Suboptimal for the evaluation of solid organs due to the lack of intravenous contrast and suboptimal for evaluation of the gastrointestinal tract due to lack of oral contrast. Degraded due to patient's left arm within the gantry resulting in streak artifact. Chest base: Atelectasis at the left lung base. No pleural fluid. Calcification the region of the mitral annulus. Liver: Normal size and contour. No identifiable lesion. Biliary tree: Normal caliber. No calcified gallstones identified Spleen: Normal. Adrenals: Both adrenal glands are enlarged but unchanged, consistent with benign adenomas as noted on prior imaging from 02/16/2023. Pancreas: Unremarkable. Kidneys: Cyst in the upper pole the right kidney again noted measuring 2.5 cm. No left renal lesion. Renal collecting systems: Renal hilar vascular calcifications. There is probably a calculus in the right proximal collecting measuring 0.2 cm. No hydronephrosis or ureteral dilatation. Free fluid: None. Retroperitoneal/mesent lymphadenopathy: None. Aorta: Normal caliber with atherosclerotic calcification. Bowel: Gastrostomy tube remains in adequate position. There is no bowel dilatation or free intraperitoneal air. Normal caliber appendix identified. There is some residual contrast in the appendix and residual contrast within the sigmoid colon and rectum. Extensive retained feces within the rectum with a caliber of as great as 8 cm Abdominal wall: Normal. Bladder: No calculi or filling defects. Pelvic organs/viscera: No mass identified. Pelvic lymphadenopathy: None. Osseous structures: Degenerative change of the lower thoracic and lumbar spine. IMPRESSION: 1. Fecal impaction the rectum 2. Tiny nonobstructing right renal calculus. Report Dictated on Electronically Signed By: Paul Kumar MD Electronically Signed Date/Time: 03/19/2025 1:24 AM EDT [facility] Rad[facility] con trastOrdered By: Paul Kumar on 03-19-2025 [facility] [employer] Work Phone: ED Nursing Noteon 03-19-2025 ED Nursing Note Report to Deuce Valadez at bedside. Pt packaged for transport back to [facility]. Normal [facility] ED Nursing Note Dr. Olguin discussed fecal disimpaction/ enema. Pt adamantly refuses. Normal [facility] ED Nursing Note Downtime charting 0125 - Attempted straight cath for UA which was unsuccessful. Pt adamantly refuses another try. Dr. Olguin updated Normal [facility] ED Nursing Note Pt is refusing blood work/PIV. Pt agreed to x-ray and UA. Normal [facility] ED Nursing Noteon 03-18-2025 ED Nursing Note Pt presents to ED vi [facility] from [facility] d/t complaint of g-tube issues/vomiting and possible UTI. EMS reports pt is non-verbal at baseline, but able to answer questions/thumbs up/down. VSS during transport. Normal [facility] ED Provider Noteon ED Provider Note EMERGENCY DEPARTMENT ENCOUNTER Pt Name: Catina Land Birthdate 1955 Date of evaluation: 03/18/2025 ED Provider: Rdaha Olguin MD CHIEF COMPLAINT Chief Complaint Patient presents with Vomiting G-tube; g-tube plastic bumper not flush against skin upon arrival. Pt denying nausea at this time. HISTORY OF PRESENT ILLNESS (Location/Symptom, Timing/Onset, Context/Setting, Quality, Duration, Modifying Factors, Severity) Note limiting factors. I wore appropriate PPE for the entirety of this encounter. HPI Catina Land is a 69 y.o. who presents to the emergency department with vomiting. Patient sent from senior care. Has a history of stroke with right-sided hemiaplasia. He is nonverbal at baseline but can nod yes or shake his head no to questions. Patient denies any abdominal pain. He denies any nausea currently. Does have a G-tube in place and does get continuous feeds. EMS report was limited. Patient is refusing IV, lab work. He would allow me to get a CT scan without contrast as well as a urine sample but otherwise is saying no to everything else. Nursing Notes were reviewed. Limitations to history: Nonverbal Outside historians: None REVIEW OF SYSTEMS Review of Systems Pertinent positives and negatives as per HPI. PAST MEDICAL HISTORY 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, aphasia Third degree AV block (CMS/HCC) ([facility]) 03/28/2014 during inferior STEMI SURGICAL HISTORY Past Surgical History: Procedure Laterality Date CORONARY ANGIOPLASTY 03/28/2014 DANDY to prox RCA x 2 CORONARY ARTERY BYPASS GRAFT 04/2014 SENIOR-LAD, SVG-PD/RCA ESOPHAGOGASTRODUODENOS COPY 12/28/2023 GASTROSTOMY TUBE PLACEMENT 01/2023 TONSILLECTOMY age 5 or 6 CURRENT MEDICATIONS Previous Medications AMLODIPINE (NORVASC) 10 MG TABLET Take 1 tablet (10 mg) by mouth daily. Do not start before February 21, 2023. APIXABAN (ELIQUIS) 5 MG TABLET Take 1 tablet (5 mg) by mouth 2 times daily. Do not start before March 17, 2023. ATORVASTATIN (LIPITOR) 40 MG TABLET 1 tablet (40 mg) by Per G Tube route daily. CARVEDILOL (COREG) 25 MG TABLET 1 tablet (25 mg) by Per G Tube route in the morning and 1 tablet (25 mg) in the evening. Take with meals. ESCITALOPRAM (LEXAPRO) 5 MG TABLET GABAPENTIN PO Take 200 mg by mouth in the morning and 200 mg in the evening. LORATADINE (CLARITIN REDITABS) 10 MG DISINTEGRATING TABLET Take 10 mg by mouth daily. MELATONIN 5 MG TABLET Take 1 tablet (5 mg) by mouth Nightly as needed (sleep). METOCLOPRAMIDE (REGLAN) 5 MG TABLET Take 5 mg by mouth 3 times daily. OXYGEN (O2) GAS Inhale 2 L/min continuous. via nasal canula PANTOPRAZOLE (PROTONIX) 40 MG EC TABLET 40 mg 2 times daily. POTASSIUM CHLORIDE 20 MEQ/15ML (10%) SOLUTION 10 mEq daily. ALLERGIES Bee venom and Erythromycin FAMILY HISTORY Family History Problem Relation Name Age of Onset Coronary artery disease Mother Cancer Mother Cancer Father Colon cancer Mother's Brother SOCIAL HISTORY Social History Socioeconomic History Marital status: Single Tobacco Use Smoking status: Former Current packs/day: 1.00 Average packs/day: 1 pack/day for 50.0 years (50.0 ttl pk-yrs) Types: Cigarettes Start date: 03/17/1975 Vaping Use Vaping status: Never Used Substance and Sexual Activity Alcohol use: Not Currently Drug use: No SCREENINGS PHYSICAL EXAM ED Triage Vitals Temp Heart Rate Resp BP 03/18/25 2345 03/18/25 2345 03/18/25 2345 03/18/25 2345 36.6 ?C (97.8 ?F) 61 16 116/58 SpO2 Temp Source Heart Rate Source Patient Position 03/18/25 2345 03/18/25 2345 03/18/25 2345 03/18/25 234 94 % Temporal Monitor Sitting BP Location FiO2 (%) 03/18/25 2346 -- Left arm Physical Exam Vital Signs: Reviewed Constitutional: No acute distress Head: Normocephalic, atraumatic Eyes: No scleral injection, no scleral icterus, no conjunctival erythema ENT: Oropharynx clear, MMM Neck: Supple, trachea midline Cardiovascular: RRR, no m/r/g Pulmonary: No evidence of labored breathing, clear to auscultation bilaterally Abdominal: Soft, nontender, mild distention, G-tube in place in the epigastric area Extremities: Warm, well perfused, no edema Neurological: Alert, shakes his head or nods his head for questions, right-sided hemiparesis Skin: Warm, dry, no rash DIAGNOSTIC RESULTS RADIOLOGY (Per Emergency Physician): Interpretation per the Radiologist below, if available at the time of this note: CT abdomen pelvis wo IV contrast Final Result 1. Fecal impaction the rectum 2. Tiny nonobstructing right renal calculus. Report Dictated on Electronically Si (more content not included)... Normal [facility] ED Nursing Noteon 03-11-2025 ED Nursing Note Transportation here to take patient back to Nursing Facility. Normal [facility] ED Nursing Note Called report to nurse Davida at [facility]. Advised of Gastric feeding tube replacement and transport obtained for patient back to facility. Normal [facility] ED Nursing Note Patient arrives via EMS from Nursing Facility. This morning patients feeding tube displaced and he was sent to the ED today to have it replaced. Normal [facility] ED Provider Noteon ED Provider Note EMERGENCY DEPARTMENT ENCOUNTER Pt Name: Catina Land Birthdate 1955 Date of evaluation: 03/11/2025 ED Provider: Marycarmen Vincent APRN - JACLYN EDcare was supervised by Dr. Sales who independently examined and evaluated the patient. Please see their attestation note for further details. CHIEF COMPLAINT Chief Complaint Patient presents with Feeding Tube Feeding tube displaced HISTORY OF PRESENT ILLNESS (Location/Symptom, Timing/Onset, Context/Setting, Quality, Duration, Modifying Factors, Severity) Note limiting factors. I wore appropriate PPE for the entirety of this encounter. HPI Catina Land is a 69 y.o. who presents to the emergency department for displaced gastrostomy tube. Patient arrives from nursing facility via EMS. Per report tube was noted to be displaced earlier this morning. Chart review reveals that tube has been in place since January 2023. Patient denies headache, lightheadedness, dizziness, fever, chills, visual disturbances, chest pain, palpitations, shortness of breath, cough, abdominal pain, nausea, vomiting, diarrhea, constipation. Denies dysuria, hematuria, or polyuria. Nursing Notes were reviewed. Limitations to history: None Outside historians: None REVIEW OF SYSTEMS Review of Systems Pertinent positives and negatives as per HPI. 13 systems reviewed as detailed above. PAST MEDICAL HISTORY Past Medical History: Diagnosis Date CAD (coronary artery disease) History of coronary artery bypass graft x 2 04/2014 Hx of blood clots 01[facility] sister Hyperlipidemia [place], old 03/28/2014 STEMI-inferior Pneumonia Presence of stent in coronary artery 03/2014 Stroke (HCC) 02/04/2023 Paralysis on right side, aphasia Third degree AV block (CMS/HCC) (HCC) 03/28/2014 during inferior STEMI SURGICAL HISTORY Past Surgical History: Procedure Laterality Date CORONARY ANGIOPLASTY 03/28/2014 DANDY to prox RCA x 2 CORONARY ARTERY BYPASS GRAFT 04/2014 SENIOR-LAD, SVG-PD/RCA ESOPHAGOGASTRODUODENOS COPY 12/28/2023 GASTROSTOMY TUBE PLACEMENT 01/2023 TONSILLECTOMY age 5 or 6 CURRENT MEDICATIONS Previous Medications AMLODIPINE (NORVASC) 10 MG TABLET Take 1 tablet (10 mg) by mouth daily. Do not start before February 21, 2023. APIXABAN (ELIQUIS) 5 MG TABLET Take 1 tablet (5 mg) by mouth 2 times daily. Do not start before March 17, 2023. ATORVASTATIN (LIPITOR) 40 MG TABLET 1 tablet (40 mg) by Per G Tube route daily. CARVEDILOL (COREG) 25 MG TABLET 1 tablet (25 mg) by Per G Tube route in the morning and 1 tablet (25 mg) in the evening. Take with meals. ESCITALOPRAM (LEXAPRO) 5 MG TABLET GABAPENTIN PO Take 200 mg by mouth in the morning and 200 mg in the evening. LORATADINE (CLARITIN REDITABS) 10 MG DISINTEGRATING TABLET Take 10 mg by mouth daily. MELATONIN 5 MG TABLET Take 1 tablet (5 mg) by mouth Nightly as needed (sleep). METOCLOPRAMIDE (REGLAN) 5 MG TABLET Take 5 mg by mouth 3 times daily. OXYGEN (O2) GAS Inhale 2 L/min continuous. via nasal canula PANTOPRAZOLE (PROTONIX) 40 MG EC TABLET 40 mg 2 times daily. POTASSIUM CHLORIDE 20 MEQ/15ML (10%) SOLUTION 10 mEq daily. ALLERGIES Bee venom and Erythromycin FAMILY HISTORY Family History Problem Relation Name Age of Onset Coronary artery disease Mother Cancer Mother Cancer Father Colon cancer Mother's Brother SOCIAL HISTORY Social History Socioeconomic History Marital status: Single Tobacco Use Smoking status: Former Current packs/day: 1.00 Average packs/day: 1 pack/day for 50.0 years (50.0 ttl pk-yrs) Types: Cigarettes Start date: 03/17/1975 Vaping Use Vaping status: Never Used Substance and Sexual Activity Alcohol use: Not Currently Drug use: No SCREENINGS [place] Coma Scale Best Eye Response: To verbal stimuli Best Verbal Response: Incomprehensible sounds Best Motor Response: Withdraws to pain [place] Coma Scale Score: 9 PHYSICAL EXAM ED Triage Vitals [03/11/25 1206] Temp Heart Rate Resp BP 36.3 ?C (97.4 ?F) 58 12 (!) 142/68 SpO2 Temp Source Heart Rate Source Patient Position 95 % Oral Monitor Lying BP Location FiO2 (%) Left arm -- Physical Exam Vitals and nursing note reviewed. Constitutional: General: He is not in acute distress. Appearance: He is well-developed. HENT: Head: Normocephalic and atraumatic. Eyes: Conjunctiva/sclera: Conjunctivae normal. Cardiovascular: Rate and Rhythm: Normal rate and regular rhythm. Heart sounds: No murmur heard. Pulmonary: Effort: Pulmonary effort is normal. No respiratory distress. Breath sounds: Normal breath sounds. Abdominal: General: The ostomy site is clean. Palpations: Abdomen is soft. Tenderness: There is no abdominal tenderness. Comments: Well-healed gastrostomy site noted to upper abdomen. No discharge from site. No bleeding. No surrounding erythema. No induration. Musculoskeletal: General: No swelling. Cervical back: Neck supple (more content not included)... Normal [facility] ED Provider Note Emergency Department [facility] Patient: Catina Land : 1955 Date of Evaluation: 03/11/2025 ED Supervising Physician: Santo Sales MD I independently examined and evaluated Catina Land. This will serve as my Supervisory note and shared attestation. I did perform a substantive portion of the visit including all aspects of the Medical Decision Making. I wore appropriate PPE for the entirety of this encounter. History: In brief, Catina Land is a 69 y.o. male that presents to the emergency department for replacement of a feeding tube. Patient had the feeding tube removed earlier today. He is sent here from [facility] with a replacement tube. Focused exam: On examination the patient is an older male found lying on a cart. He is in no acute distress. There is no respiratory compromise. A size 18 tube is replaced. This was easily done. This was done under my supervision. Differential Diagnosis: Differential diagnosis is feeding tube replacement. ED testing and evaluation will be obtained to help differentiate these diagnostic possibilities and determine the most likely cause. Diagnostic testing undertaken, as well as those tests considered but not ordered: Gastrografin will be placed to ensure adequate placement. Brief ED course/MDM: In the emergency department the patient was initially evaluated with a history and physical examination. Further diagnostic testing and therapeutic care was based on this initial assessment. The patient will be subsequently discharged back to the [facility]. Sources of History: I evaluated other historical sources including previous outpatient records and admission records. Patient is aware of care plan. All diagnostic, treatment, and disposition decisions were made by myself in conjunction with the [facility]. For all further details of the patient's emergency department visit, please see their documentation. (Comment: Please note this report has been produced using speech recognition software and may contain errors related to that system including errors in grammar, punctuation, and spelling, as well as words and phrases that may be inappropriate. If there are any questions or concerns please feel free to contact the dictating provider for clarification.) Santo Sales MD [facility] Santo Sales MD 03/11/25 1402 Normal [facility] XR Abdomen Single viewon Contrast outlines th e gastric lumen, consistent with satisfactory position of the PEG tube. Report Dictated on Electronically Signed By: Cayden Rowell MD Electronically Signed Date/Time: 03/11/2025 1:14 PM [facility] 1955 [id number] Exam Date/Time: 03/11/2025 12:50 Procedure: XR ABDOMEN 1 VIEW Ordering Provider: VINCENT SAMANTHA Reason For Exam: Gastrostomy tube replacement confirmation ABDOMEN -1 VIEW: CLINICAL INDICATION: Enteric tube positioning TECHNIQUE: 1 view of abdomen and pelvis COMPARISON: November 03, 2023 FINDINGS: An initial dining room server image is provided. Subsequently 30 cc of Gastrografin was administered by the registered nurse. Contrast outlines the gastric lumen, consistent with satisfactory position of the PEG tube. Increased fecal residue overlying the expected location of the rectosigmoid colon. Otherwise the bowel gas pattern is nonspecific, nonobstructed. No abnormal soft tissue calcifications are identified. Multilevel thoracolumbar degenerative change. [facility] Cayden Rowell MD - 03/11/2025 Patient Name: CATINA LNAD : 1955 Exam Date/Time: 03/11/2025 12:50 Procedure: XR ABDOMEN 1 VIEW Ordering Provider: VINCENT SAMANTHA Reason For Exam: Gastrostomy tube replacement confirmation ABDOMEN -1 VIEW: CLINICAL INDICATION: Enteric tube positioning TECHNIQUE: 1 view of abdomen and pelvis COMPARISON: November 03, 2023 FINDINGS: An initial dining room server image is provided. Subsequently 30 cc of Gastrografin was administered by the registered nurse. Contrast outlines the gastric lumen, consistent with satisfactory position of the PEG tube. Increased fecal residue overlying the expected location of the rectosigmoid colon. Otherwise the bowel gas pattern is nonspecific, nonobstructed. No abnormal soft tissue calcifications are identified. Multilevel thoracolumbar degenerative change. IMPRESSION: Contrast outlines the gastric lumen, consistent with satisfactory position of the PEG tube. Report Dictated on Electronically Signed By: Cayden Rowell MD Electronically Signed Date/Time: 03/11/2025 1:14 PM EDT [facility] Radiology Study observation (narrative) [facility] XR Abdomen Single viewOrdere d By: Cayden Rowell on 03-11-2025 [facility] Work Phone: 36on 09-17-2024 36 Call to patient. Lm on to call the office. Normal [facility] 36on 09-14-2024 36 Call to patient. Unable to Lm on due to VM is not set up. Office will try patient's mobile number. Call to patient's mobile #. Lm on to call the office. Please send patient to the back line when patient returns call. Normal [facility] 36 We have been unable to reach your patient to schedule their testing. Test Name: Home sleep test 1st Attempt: No voicemail set up, sent [employer] 09/10/24 2nd Attempt: send Lysthart 09/14/24 Normal [facility] 36on 08-27-2024 36 Call to patient. Lm on VM to call the office. Please inform patient of message below. Thank you. Sent patient a [employer] message informing patient. Normal [facility] 36on 08-24-2024 36 Call to patient. Unable to LM on Vm due to VM is not setup. Patient has not scheduled testing. Please inform patient to call sleep scheduling at [phone] to schedule sleep study that was ordered on 06/21/2024. Normal [facility] Office Visiton 06-21-2024 Follow-up visit [id number] Fannie Land 1955 M Date Provider Department Center 06/21/2024 [id number] MALHOTRA [facility] None Family History Problem Relation Age of Onset Coronary artery disease Mother Cancer Mother Cancer Father Colon cancer Mother's Brother Family Status - Relation Status Age at Mother Father Mother's Brother Level of Service:[id number] [place] OFFICE/OUTPATIENT ESTABLISHED MOD MDM 30 MIN Reason for Visit and Comments: Follow-up [009471] Stroke [[id number]] Normal [facility] PATINSon 06-21-2024 PATINS He has established with Cardiology Continue Eliquis Continue with therapies Will order Home Sleep Test Sleep lab [phone] Will contact family after sleep study is completed to discuss [facility] Progress Noteon 06-21-2024 Progress Note Visit type: Established Patient Reason for Visit: Follow-up and Stroke Assessment and Plan 1. Ischemic stroke (HCC) 2. Atrial thrombus 3. Dysphagia as late effect of stroke 4. Obstructive sleep apnea - Home sleep test 5. Aphasia Subjective HPI: February 2023 left MCA stroke CESARIO showed left atrial appendage thrombus-on Eliquis STOPBANG 04/14 He was seen by Dr. Peterson-plan is to continue Eliquis. No need to repeat imaging He is here with a niece and great niece He is able to communicate answers to questions but when asked yes or no he answered yes He is still dealing with N&V He is getting some therapies Full assist Has PEG tube REVIEW OF SYSTEMS: Review of Systems Constitutional: Negative. HENT: Positive for trouble swallowing. Eyes: Negative. Respiratory: Negative. Cardiovascular: Negative. Gastrointestinal: Positive for nausea. Has PEG tube Endocrine: Negative. Genitourinary: Negative. Musculoskeletal: Negative. Skin: Negative. Allergic/Immunologic: Negative. Neurological: Positive for speech difficulty and weakness. Hematological: Negative. Psychiatric/Behavioral : Negative. Allergies Allergen Reactions Bee Venom Anaphylaxis Erythromycin Itching Outpatient Medications Prior to Visit Medication Sig Dispense Refill amLODIPine (Norvasc) 10 MG tablet Take 1 tablet (10 mg) by mouth daily. Do not start before February 21, 2023. 30 tablet 0 apixaban (Eliquis) 5 MG tablet Take 1 tablet (5 mg) by mouth 2 times daily. Do not start before March 17, 2023. 60 tablet 0 atorvastatin (Lipitor) 40 MG tablet 1 tablet (40 mg) by Per G Tube route daily. 30 tablet 2 carvedilol (Coreg) 25 MG tablet 1 tablet (25 mg) by Per G Tube route in the morning and 1 tablet (25 mg) in the evening. Take with meals. 60 tablet 0 escitalopram (Lexapro) 5 MG tablet GABAPENTIN PO Take 200 mg by mouth in the morning and 200 mg in the evening. loratadine (Claritin Reditabs) 10 MG disintegrating tablet Take 10 mg by mouth daily. melatonin 5 MG tablet Take 1 tablet (5 mg) by mouth Nightly as needed (sleep). 0 oxygen (O2) gas Inhale 2 L/min continuous. via nasal canula pantoprazole (ProtoNix) 40 MG EC tablet 40 mg 2 times daily. Potassium Chloride 20 MEQ/15ML (10%) solution 10 mEq daily. metoclopramide (Reglan) 5 MG tablet Take 5 mg by mouth 3 times daily. ipratropium-albuterol (Duo-Neb) 0.5-2.5 mg/3 mL nebulizer solution Take 3 mL by nebulization in the morning and 3 mL at noon and 3 mL in the evening. (Patient not taking: Reported on 06/21/2024) 180 mL 11 omeprazole (PriLOSEC) [address] capsule Take 1 capsule (40 mg) by mouth in the morning and 1 capsule (40 mg) in the evening. Do not crush or chew.. (Patient not taking: Reported on 06/21/2024) 60 capsule 3 No facility-administered medications prior to visit. Past Medical History: Diagnosis Date CAD (coronary artery disease) History of coronary artery bypass graft x 2 04/2014 Hx of blood clots [facility] Hyperlipidemia [place], old 03/28/2014 STEMI-inferior Pneumonia Presence of stent in coronary artery 03/2014 Stroke (HCC) 02/04/2023 Paralysis on right side, aphasia Third degree AV block (CMS/HCC) (HCC) 03/28/2014 during inferior STEMI Social History Tobacco Use Smoking status: Former Current packs/day: 1.00 Average packs/day: 1 pack/day for 49.3 years (49.3 ttl pk-yrs) Types: Cigarettes Start date: 03/17/1975 Smokeless tobacco: Not on file Substance Use Topics Alcohol use: Not Currently Past Surgical History: Procedure Laterality Date CORONARY ANGIOPLASTY 03/28/2014 DANDY to prox RCA x 2 CORONARY ARTERY BYPASS GRAFT 04/2014 SENIOR-LAD, SVG-PD/RCA ESOPHAGOGASTRODUODENOS COPY 12/28/2023 GASTROSTOMY TUBE PLACEMENT 01/2023 TONSILLECTOMY age 5 or 6 Family History Problem Relation Name Age of Onset Coronary artery disease Mother Cancer Mother Cancer Father Colon cancer Mother's Brother Objective Vitals: BP 101/62 (BP Location: Left arm, Patient Position: Sitting, BP Cuff Size: Adult) Pulse 76 General Appearance: Patient is in no apparent distress. Head is normocephalic, atraumatic Cardiovascular: Regular rate and rhythm. No heart murmurs. No carotid bruit Neurologic: Mentation: Alert Speech and Language: Only said yes Concentration and Attention: Could not test Memory: Could not test Fund of Knowledge: Could not test Cranial Nerves: II, III, IV, V, , VII, VIII, IX, X, XI, XII examined and were intact. Right facial droop- Motor: Strength: Right hemiplegia Cogwheel Rigidity: None Tone: Tone is rigid Tremor / Involuntary Movements: None Coordination: Could not be tested Gait and Station: Could not me tested Data Reviewed and Summarized DIAGNOSTIC TESTING CBC: Lab Results Component Value Date WBC 7.2 03/09/2023 RBC 4.15 (L) 03/09/2023 HGB 12.4 (L) 03/09/2023 HCT 38.1 (L) 03/09/2023 MCV 91.6 03/09/2023 MCH 29.8 03/09/2023 MC (more content not included)... Normal [facility] Office Visiton 03-30-2024 Follow-up visit [id number] Fannie Land 1955 M Date Provider Department Center 03/30/2024 [id number] GARCIA [facility] None Family History Problem Relation Age of Onset Coronary artery disease Mother Cancer Mother Cancer Father Colon cancer Mother's Brother Family Status - Relation Status Age at Mother Father Mother's Brother Level of Service:28087 [place] OFFICE/OUTPATIENT NEW LOW MDM 30 MINUTES Reason for Visit and Comments: New Patient [542] - EGD Normal [facility] Progress Noteon 03-30-2024 Progress Note [facility] [address], [address] [facility] [address] Dept phone: [phone] Catina Imelda Land [id number] Assessment and Recommendations 1. Bilateral impacted cerumen 2. Normal nasopharyngeal exam Flexible laryngoscopy today - mild inferior turbinate hypertrophy. Septum midline.. Middle meatus patent without purulence, polyps, or swelling. No lesions or masses in the nasopharynx, oropharynx, base of tongue, vallecula, epiglottis, AE folds, piriforms, false cords or true cords. There is mild crusting in the nasopharynx. The vocal cords move well bilaterally. His family was not entirely sure what the reason for the referral was today, and to be honest I was in either. I suspect there was an abnormality noted on EGD but there is no documentation of this. Laryngoscopy today was unremarkable. Bilateral cerumen disimpaction. Follow-up 6 months for ear check Shira Garcia MD Subjective This is a 68 y.o. old male presenting with benign neoplasm of nasopharynx Accompanied by 2 family members. Patient recently had a stroke and has expressive aphasia. His 2 family members were not entirely certain why they were told to come to this appointment today. The referral came from the GI provider who performed the EGD earlier this year. The EGD report does not mention anything about a nasopharyngeal abnormality. We discussed that I suspect they saw something with the EGD and they wanted me to evaluate further. They also report he has been pointing at his right ear like it is plugged or bothering him. Medications Outpatient Medications Prior to Visit Medication Sig Dispense Refill apixaban (Eliquis) 5 MG tablet Take 1 tablet (5 mg) by mouth 2 times daily. Do not start before March 17, 2023. 60 tablet 0 escitalopram (Lexapro) 5 MG tablet GABAPENTIN PO Take 200 mg by mouth in the morning and 200 mg in the evening. melatonin 5 MG tablet Take 1 tablet (5 mg) by mouth Nightly as needed (sleep). 0 metoclopramide (Reglan) 5 MG tablet Take 5 mg by mouth 3 times daily. omeprazole (PriLOSEC) [address] capsule Take 1 capsule (40 mg) by mouth in the morning and 1 capsule (40 mg) in the evening. Do not crush or chew.. 60 capsule 3 oxygen (O2) gas Inhale 2 L/min continuous. via nasal canula pantoprazole (ProtoNix) 40 MG EC tablet 40 mg 2 times daily. Potassium Chloride 20 MEQ/15ML (10%) solution 10 mEq daily. amLODIPine (Norvasc) 10 MG tablet Take 1 tablet (10 mg) by mouth daily. Do not start before February 21, 2023. 30 tablet 0 atorvastatin (Lipitor) 40 MG tablet 1 tablet (40 mg) by Per G Tube route daily. 30 tablet 2 carvedilol (Coreg) 25 MG tablet 1 tablet (25 mg) by Per G Tube route in the morning and 1 tablet (25 mg) in the evening. Take with meals. 60 tablet 0 ipratropium-albuterol (Duo-Neb) 0.5-2.5 mg/3 mL nebulizer solution Take 3 mL by nebulization in the morning and 3 mL at noon and 3 mL in the evening. 180 mL 11 No facility-administered medications prior to visit. Allergies Allergies Allergen Reactions Bee Venom Anaphylaxis Erythromycin Itching Problem List Patient Active Problem List Diagnosis History of coronary artery bypass graft x 2 Hyperlipidemia Presence of stent in coronary artery CAD (coronary artery disease) [place], old Acute ischemic stroke (HCC) Arterial ischemic stroke, MCA (middle cerebral artery), left, acute (HCC) Brain compression (CMS/HCC) (HCC) Cerebral edema (CMS/HCC) (HCC) Troponin level elevated Cognitive impairment Debility Encounter for assessment of decision-making capacity Sepsis (HCC) SIRS (systemic inflammatory response syndrome) (HCC) Gastric peptic ulcer Esophageal ulcer Objective Physical Exam Constitutional - alert, no acute distress, non-toxic appearing. Voice - mildly weak, wet quality Face - normocephalic, atraumatic Ears - Right: normal auricle, canal without edema, cerumen impaction Left: normal auricle, canal without edema, cerumen impaction Respiratory - normal work of breathing on room air, no audible wheezing or stridor Results 12/28/23 EGD: Findings: LA Grade D (one or more mucosal breaks involving at least 75% of esophageal circumference) esophagitis with no bleeding was found. A 3 cm hiatal hernia was present. Many non-bleeding superficial gastric ulcers with no stigmata of bleeding were found in the gastric antrum. The largest lesion was 10 mm in largest dimension. Biopsies were taken with a cold forceps for histology. Biopsies were taken with a cold forceps for Helicobacter pylori testing. The exam was otherwise without abnormality.Peg balloon was on the anterior wall of the body. One non-bleeding superficial duodenal ulcer with no stigmata of bleeding was found in the first portion of the duodenum. The lesion was 10 mm in largest dimension. The second portion of the duodenum and third portion of the duodenum were normal. Biopsies were t (more content not included)... Normal [facility] Basophil percentageOrdered B y: Kelsey Stevens on 01-26-2024 Chloride [Moles/Vol] 105 mmol/L 98-107 [facility] Glucose [Mass/Vol] 84 mg/dL 74-106 [facility] Potassium [Moles/Vol] 4.0 mmol/L 3.5-5.[address] [facility] Sodium [Moles/Vol] 139 mmol/L 136-145 [facility] Laboratory - Chemistry and C hemistry - challengeOrdered By: Kelsey Stevens on 01-26-2024 CO2 [Moles/Vol] 29.0 mmol/L 21.0-32.0 [facility] Urea nitrogen/Creatinine [Mass ratio] 24.6 mg/mg 10-20 [facility] No Panel InformationOrdered By: Kelsey Stevens on 01-26-2024 Estimated GFR (MDRD) Amer 98 mL/min >60 [facility] Comment on above: GFR Calc Estimated GFR (MDRD) Non-Af Amer 81 mL/min >60 [facility] Comment on above: Non- GFR Calc Serum or plasma calcium abran urement (mass/volume)Ordered By: Kelsey Stevens on 01-26-2024 Calcium [Mass/Vol] 9.0 mg/dL 8.5-10.1 [facility] Serum or plasma creatinine m easurement (mass/volume)Ordered By: Kelsey Stevens on 01-26-2024 Creatinine [Mass/Vol] 0.97 mg/dL 0.70-1.[address] [facility] Comment on above: The validity of the calculated GFR & GFRAA in patients over 70 years has not been determined. Clinical correlation is essential. Serum or plasma urea nitroge n measurement (mass/volume)Ordered By: Kelsey Stevens on 01-26-2024 Urea nitrogen [Mass/Vol] 24 mg/dL 7-18 [facility] Thin prep Papanicolaou smear with manual screeningOrdered By: Kelsey Stevens on 01-26-2024 Thin prep Papanicolaou smear with manual screening 5 5-15 [facility] Basophil percentageOrdered B y: Kelsey Stevens on 01-24-2024 Bilirubin [Mass/Vol] 0.80 mg/dL 0.20-1.00 [facility] Comment on above: For patients on eltr ombopag therapy, use of Dimension [place] TBIL is not recommended. Chloride [Moles/Vol] 105 mmol/L 98-107 [facility] Cholesterol [Mass/Vol] 112 mg/dL <200 [facility] Comment on above: <200 mg/dL Desirable 200-240 mg/dL Borderline >240 mg/dL High Risk Glucose [Mass/Vol] 82 mg/dL 74-106 [facility] Hemoglobin (Bld) [Mass/Vol] 13.3 g/dL 13.0-16.5 [facility] Potassium [Moles/Vol] 3.7 mmol/L 3.5-5.[address] [facility] Protein [Mass/Vol] 7.1 g/dL 6.4-8.2 [facility] Sodium [Moles/Vol] 139 mmol/L 136-145 [facility] Triglyceride [Mass/Vol] 112 mg/dL <199 [facility] Comment on above: The drugs N-Acetylcy steine and Metamizole may falsely depress this assay.Serum Triglycerides Reference Interval Normal <150 mg/dL Borderline high 150 - 199 mg/dL High 200 - 499 mg/dL Very High > or = 500 mg/dL WBC (Bld) [#/Vol] 6.9 10*3/uL 4.4-11.0 [facility] Determination of erythrocyte mean corpuscular volume (MCV)Ordered By: Kelsey Stevens on 01-24-2024 MCV (RBC) [Entitic vol] 91.4 fL 80-94 [facility] Erythrocyte distribution wid th ratioOrdered By: Kelsey Stevens on 01-24-2024 Erythrocyte distribution width (RBC) [Ratio] 13.0 % 11.6-14.6 [facility] Erythrocyte distribution wid th standard deviationOrdered By: Kelsey Stevens on 01-24-2024 Erythrocyte distribution width (RBC) [Entitic vol] 43.4 fL 35.1-43.9 [facility] Hematocrit Auto (Bld) [Volum e fraction]Ordered By: Kelsey Stevens on 01-24-2024 Hematocrit (Bld) [Volume fraction] 41.5 % 40-54 [facility] Laboratory - Chemistry and C hemistry - challengeOrdered By: Kelsey Stevens on 01-24-2024 Albumin/Globulin [Mass ratio] 0.9 {ratio} 0.9-2.4 [facility] ALP [Catalytic activity/Vol] 74 U/L 45-117 [facility] ALT [Catalytic activity/Vol] 22 U/L 16-61 [facility] Cholesterol in HDL [Mass/Vol] 28 mg/dL >40 [facility] Comment on above: The drugs N-Acetylcy steine and Metamizole may falsely depress this assay. Reference Range HDL <40 mg/dL Low HDL Cholesterol HDL >or= 60 mg/dL High HDL Cholesterol Cholesterol in LDL [Mass/Vol] 62 mg/dL 0-130 [facility] CO2 [Moles/Vol] 28.0 mmol/L 21.0-32.0 [facility] Globulin (S) [Mass/Vol] 3.7 g/dL 2.2-4.2 [facility] Urea nitrogen/Creatinine [Mass ratio] 23.0 mg/mg 10-20 [facility] Laboratory - Hematology and Cell countsOrdered By: Kelsey Stevens on 01-24-2024 MCH (RBC) [Entitic mass] 29.3 pg 27.0-32.0 [facility] MCHC (RBC) [Mass/Vol] 32.0 g/dL 32-[address] [facility] Platelet mean volume (Bld) [Entitic vol] 10.3 fL 6.2-12.0 [facility] Platelets (Bld) [#/Vol] 315 10*3/uL 150-450 [facility] Lipoprotein a [Mass/Vol]Orde red By: Kelsey Stevens on 01-24-2024 Lipoprotein a [Moles/Vol] 37.0 nmol/L <75.0 [facility] Comment on above: Note: Values greater than or equal to 75.0 nmol/L may indicate an independent risk factor for CHD, but must be evaluated with caution when applied to non- populations due to the influence of genetic factors on Lp(a) across ethnicities.Performed at: [facility] [place] [id number] Director: Arnol Mayers PhD, Phone: [phone] No Panel InformationOrdered By: Kelsey Stevens on 01-24-2024 Estimated GFR (MDRD) Amer 96 mL/min >60 [facility] Comment on above: GFR Calc Estimated GFR (MDRD) Non-Af Amer 79 mL/min >60 [facility] Comment on above: Non- GFR Calc VLDL Cholesterol 22 mg/dL 5-40 [facility] RBC Auto (Bld) [#/Vol]Ordere d By: Kelsey Stevens on 01-24-2024 RBC (Bld) [#/Vol] 4.54 10*6/uL 4.6-6.2 [facility] Serum or plasma calcium abran urement (mass/volume)Ordered By: Kelsey Stevens on 01-24-2024 Calcium [Mass/Vol] 9.5 mg/dL 8.5-10.1 [facility] Serum or plasma creatinine m easurement (mass/volume)Ordered By: Kelsey Stevens on 01-24-2024 Creatinine [Mass/Vol] 1.00 mg/dL 0.70-1.[address] [facility] Comment on above: The validity of the calculated GFR & GFRAA in patients over 70 years has not been determined. Clinical correlation is essential. Serum or plasma urea nitroge n measurement (mass/volume)Ordered By: Kelsey Stevens on 01-24-2024 Urea nitrogen [Mass/Vol] 23 mg/dL 7-18 [facility] Thin prep Papanicolaou smear with manual screeningOrdered By: Kelsey Stevens on 01-24-2024 Thin prep Papanicolaou smear with manual screening 3.4 g/dL 3.2-5.0 [facility] Thin prep Papanicolaou smear with manual screening 23 U/L 15-37 [facility] Thin prep Papanicolaou smear with manual screening 6 5-15 [facility] No Panel Informationon 11-03 PATRICK Hamm CNP 11/03/2023 11:21 AM PEG Tube Insertion/Replacement Performed by: PATRICK Hamm CNP Authorized by: PATRICK Hamm CNP Consent: The indications, risks, benefits, alternatives to the procedure were explained to the patient/surrogate decision maker and their questions answered. Consent was obtained to proceed with the procedure. Timeout: Completed immediately prior to the start of the procedure which included verification of the correct patient, correct site and agreement on the procedure to be done. Indications: Indications: dysphagia Anesthetic: Local anesthetic used: not applicable Preparation: Patient was prepped and draped in usual sterile fashion Skin prepped: skin prepped with chlorhexidine Procedure details: Procedure type: PEG tube replacement without revision Tube type: MAUREEN tube Tube size: 18 Fr (16 FR). Skin level of gastrostomy tube: 4 cm Bulb inflation volume: 10 (ml) Bulb inflation fluid: sterile water Post-procedure: Post-procedure: Securement device Estimated blood loss: none Specify Complication(s): no apparent complications [facility] XR Abdomen Single viewon Intraluminal contrast administration via the percutaneous gastrostomy tube. Report Dictated on Electronically Signed By: Nathan Duarte MD Electronically Signed Date/Time: 11/03/2023 12:06 PM [facility] [place] RADI[facility]Y [facility] Patient Name: CATINA LAND : 1955 Exam Date/Time: 11/03/2023 10:29 Procedure: XR ABDOMEN 1 VIEW Ordering Provider: KEMP DANIEL Reason For Exam: PEG tube placement Exam Type: XR ABDOMEN 1 VIEW Exam Date and Time: 11/03/2023 10:29 AM EST Indication: PEG tube placement Comparison: Abdominal radiograph on 04/11/2023 TECHNIQUE: AP supine radiograph of the abdomen before and after the instillation of oral contrast via a percutaneous gastrostomy tube.. FINDINGS: Imaging demonstrates instillation of contrast via a percutaneous gastrostomy tube. Contrast is intraluminal within the stomach and proximal small bowel. Nonobstructive bowel gas pattern. Degenerative changes of the imaged spine. 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 Atherosclerotic vascular calcifications. [facility] Nathan Duarte MD - 11/03/2023 Patient Name: CATINA LAND : 1955 Exam Date/Time: 11/03/2023 10:29 Procedure: XR ABDOMEN 1 VIEW Ordering Provider: KEMP DANIEL Reason For Exam: PEG tube placement Exam Type: XR ABDOMEN 1 VIEW Exam Date and Time: 11/03/2023 10:29 AM EST Indication: PEG tube placement Comparison: Abdominal radiograph on 04/11/2023 TECHNIQUE: AP supine radiograph of the abdomen before and after the instillation of oral contrast via a percutaneous gastrostomy tube.. FINDINGS: Imaging demonstrates instillation of contrast via a percutaneous gastrostomy tube. Contrast is intraluminal within the stomach and proximal small bowel. Nonobstructive bowel gas pattern. Degenerative changes of the imaged spine. 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 Atherosclerotic vascular calcifications. IMPRESSION: Intraluminal contrast administration via the percutaneous gastrostomy tube. Report Dictated on Electronically Signed By: Nathan Duarte MD Electronically Signed Date/Time: 11/03/2023 12:06 PM EST [facility] Radiology Study observation (narrative) [facility] julian XR Abdomen Single viewOrdere d By: Nathan Duarte on 11-03-2023 [employer] Work Phone: XR Chest Single viewon 11-03 No evidence of acute cardiopulmonary process or significant interval change. Report Dictated on Electronically Signed By: Albin Dave MD Electronically Signed Date/Time: 11/03/2023 10:20 AM [facility] RADIOLOGY SYSTEM Patient Name: CATINA LAND : 1955 Exam Date/Time: 11/03/2023 10:29 Procedure: XR CHEST 1 VIEW Ordering Provider: KEMP DANIEL Reason For Exam: DYSPNEA CLINICAL INFORMATION: Shortness of breath. CHEST X-RAY, PORTABLE, 1006: An AP portable view is compared to the prior examination of 02/24/2023. The projection is slightly lordotic. The patient is slightly rotated to the right. There are median sternotomy wires. There is no abnormality of the mediastinum or cardiac silhouette. No pleural effusion, vascular congestion, focal consolidation or pneumothorax is seen. [facility] Albin Dave MD - 11/03/2023 Patient Name: CATINA LAND : 1955 Exam Date/Time: 11/03/2023 10:29 Procedure: XR CHEST 1 VIEW Ordering Provider: KEMP DANIEL Reason For Exam: DYSPNEA CLINICAL INFORMATION: Shortness of breath. CHEST X-RAY, PORTABLE, 1006: An AP portable view is compared to the prior examination of 02/24/2023. The projection is slightly lordotic. The patient is slightly rotated to the right. There are median sternotomy wires. There is no abnormality of the mediastinum or cardiac silhouette. No pleural effusion, vascular congestion, focal consolidation or pneumothorax is seen. IMPRESSION: No evidence of acute cardiopulmonary process or significant interval change. Report Dictated on Electronically Signed By: Albin Dave MD Electronically Signed Date/Time: 11/03/2023 10:20 AM [facility] Radiology Study observation (narrative) Jose C alth XR Chest Single viewOrdered By: Albin Dave on 11-03-2023 [employer] Work Phone: XR Abdomen Single viewon Gastrostomy tube in adequate position. Report Dictated on Electronically Signed By: Paul Kumar Electronically Signed Date/Time: 04/11/2023 4:23 AM EDT [facility] Patient Name: CATINA LAND : 1955 Exam Date/Time: 04/11/2023 04:20 Procedure: XR ABDOMEN 1 VIEW Ordering Provider: FLORES PRISCA Reason For Exam: peg tube placement ABDOMEN AND LIMITED UPPER GI: CLINICAL INDICATION: Gastrostomy tube placement. TECHNIQUE: Supine abdomen and pelvis before and after administration of 15 mL of Gastrografin performed by the nurse COMPARISON: None. FINDINGS: The bowel gas pattern is unremarkable on the initial radiograph. Following contrast instillation, there is contrast in the stomach and duodenum without evidence of extravasation. Vascular calcifications are noted. Degenerative change of the lumbar spine. [facility] Paul Kumar MD - 04/11/2023 Patient Name: CATINA LAND : 1955 Exam Date/Time: 04/11/2023 04:20 Procedure: XR ABDOMEN 1 VIEW Ordering Provider: FLORES PRISCA Reason For Exam: peg tube placement ABDOMEN AND LIMITED UPPER GI: CLINICAL INDICATION: Gastrostomy tube placement. TECHNIQUE: Supine abdomen and pelvis before and after administration of 15 mL of Gastrografin performed by the nurse COMPARISON: None. FINDINGS: The bowel gas pattern is unremarkable on the initial radiograph. Following contrast instillation, there is contrast in the stomach and duodenum without evidence of extravasation. Vascular calcifications are noted. Degenerative change of the lumbar spine. IMPRESSION: Gastrostomy tube in adequate position. Report Dictated on Electronically Signed By: Paul Kumar Electronically Signed Date/Time: 04/11/2023 4:23 AM EDT [facility] Radiology Study observation (narrative) [facility] C [facility] julian XR Abdomen Single viewOrdere d By: Paul Kumar on 04-11-2023 [employer] Work Phone: Bacteria identified Cx Nom ( Bld)on 03-10-2023 Interpretation and review of laboratory results Normal [facility] Blood Collection Sit e: Left Forearm [facility] Blood Collection Sit e: Right Arm [facility] Laboratory - Microbiology an d Antimicrobial susceptibilityon 03-10-2023 Bacteria identified Cx Nom (Bld) No growth at 5 days [facility] XR Hip - right 3 Viewson No significant right hip abnormality is identified. Report Dictated on Electronically Signed By: Tarsha Hernandez Electronically Signed Date/Time: 03/10/2023 3:40 PM EDT [facility] RADIOLOGY SYSTEM Patient Name: CATINA LAND : 1955 Exam Date/Time: 03/10/2023 14:09 Procedure: XR HIP 2 OR 3 VW RIGHT Ordering Provider: DAMICO VISHNU Reason For Exam: Pain PELVIS AND RIGHT HIP: CLINICAL INDICATION: Pain TECHNIQUE: AP pelvis plus AP and lateral views of the right hip COMPARISON: Abdominal radiograph from 02/10/2023 FINDINGS: There is no evidence for an acute fracture or dislocation. Degenerative change of the lower lumbar spine.. No significant hip joint DJD. Mild bilateral sacroiliac joint DJD. No worrisome osseous lesion is identified. Scattered vascular calcifications.. [facility] Tarsha Hernandez M D - 03/10/2023 Patient Name: CATINA LAND : 1955 Exam Date/Time: 03/10/2023 14:09 Procedure: XR HIP 2 OR 3 VW RIGHT Ordering Provider: DAMICO VISHNU Reason For Exam: Pain PELVIS AND RIGHT HIP: CLINICAL INDICATION: Pain TECHNIQUE: AP pelvis plus AP and lateral views of the right hip COMPARISON: Abdominal radiograph from 02/10/2023 FINDINGS: There is no evidence for an acute fracture or dislocation. Degenerative change of the lower lumbar spine.. No significant hip joint DJD. Mild bilateral sacroiliac joint DJD. No worrisome osseous lesion is identified. Scattered vascular calcifications.. IMPRESSION: No significant right hip abnormality is identified. Report Dictated on Electronically Signed By: Tarsha Hernandez Electronically Signed Date/Time: 03/10/2023 3:40 PM EDT [facility] Radiology Study observation (narrative) [facility] XR Hip - right 3 ViewsOrdere d By: Tarsha Hernandez on 03-10-2023 [facility] Work Phone: Basic metabolic 1998 panelon 03-09-2023 Anion gap [Moles/Vol] 3 mmol/L 3 - 13 mmol/L [facility] Calcium [Mass/Vol] 8.2 mg/dL Low 8.4 - 10. 4 mg/dL [facility] Chloride [Moles/Vol] 107 mmol/L 98 - 10 7 mmol/L [facility] CO2 [Moles/Vol] 32 mmol/L High 22 - 30 mmol/L [facility] Creatinine [Mass/Vol] 0.73 mg/dL 0.66 - 1.25 mg/dL [facility] GFR/1.73 sq M.predicted MDRD (S/P/Bld) [Vol rate/Area] - PINF [facility] Comment on above: Calculation based on the Chronic Kidney Disease Epidemiology Collaboration (CKD-EPI) equation refit without adjustment for race Glucose [Mass/Vol] 97 mg/dL 70 - 100 mg/dL [facility] Interpretation and review of laboratory results Abnormal [facility] Potassium [Moles/Vol] 3.4 mmol/L Low 3.5 - 5.1 mmol/L [facility] Sodium [Moles/Vol] 142 mmol/L 135 - 145 mmol/L [facility] Urea nitrogen [Mass/Vol] 21 mg/dL High 9 - 20 mg/dL [facility] CBC W Auto Differential pane l (Bld)Ordered By: Geoff Vera on 03-09-2023 Basophils (Bld) [#/Vol] 0.0 10*3/uL 0.0 - 0.2 10*3/uL [facility] Basophils/100 WBC (Bld) 0.4 % 0.0 - 2.0 % [facility] Eosinophils (Bld) [#/Vol] 0.4 10*3/uL 0.0 - 0.5 10*3/uL [facility] Eosinophils/100 WBC (Bld) 5.5 % 1.0 - 6.0 % [facility] Erythrocyte distribution width (RBC) [Ratio] 14.6 % High 11.5 - 14.5 % [facility] Hematocrit (Bld) [Volume fraction] 38.1 % Low 40.0 - 52.0 % [facility] Hemoglobin (Bld) [Mass/Vol] 12.4 g/dL Low 13.0 - 18.0 g/dL [facility] Interpretation and review of laboratory results Abnormal [facility] Lymphocytes (Bld) [#/Vol] 1.9 10*3/uL 1.0 - 4.3 10*3/uL [facility] Lymphocytes/100 WBC (Bld) 26.9 % 20.0 - 40.0 % [facility] MCH (RBC) [Entitic mass] 29.8 pg 26. 0 - 34.0 pg [facility] MCHC (RBC) [Mass/Vol] 32.6 % 32.0 - 36.0 % [facility] MCV (RBC) [Entitic vol] 91.6 fL 80.0 - 98.0 fL [facility] Monocytes (Bld) [#/Vol] 0.6 10*3/uL 0.0 - 0.8 10*3/uL [facility] Monocytes/100 WBC (Bld) 8.5 % 2.0 - 10.0 % [facility] Neutrophils (Bld) [#/Vol] 4.2 10*3/uL 1.8 - 7.0 10*3/uL [facility] Neutrophils/100 WBC (Bld) 58.7 % 40.0 - 80.0 % [facility] Nucleated RBC/100 WBC (Bld) [Ratio] 0.1 % [facility] Platelet mean volume (Bld) [Entitic vol] 9.0 fL 7.4 - 12.4 fL [facility] Platelets (Bld) [#/Vol] 231 10*3/uL 140 - 440 10*3/uL [facility] RBC (Bld) [#/Vol] 4.15 10*6/uL Low 4.40 - 5.9 0 10*6/uL [facility] WBC (Bld) [#/Vol] 7.2 10*3/uL 3.6 - 10.7 10*3/uL [facility] Basic metabolic 1998 panelon 03-08-2023 Anion gap [Moles/Vol] 2 mmol/L Low 3 - 13 mmol/L [facility] Calcium [Mass/Vol] 7.8 mg/dL Low 8.4 - 10. 4 mg/dL [facility] Chloride [Moles/Vol] 111 mmol/L High 98 - 10 7 mmol/L [facility] CO2 [Moles/Vol] 32 mmol/L High 22 - 30 mmol/L [facility] Creatinine [Mass/Vol] 0.83 mg/dL 0.66 - 1.25 mg/dL [facility] GFR/1.73 sq M.predicted MDRD (S/P/Bld) [Vol rate/Area] - PINF [facility] Comment on above: Calculation based on the Chronic Kidney Disease Epidemiology Collaboration (CKD-EPI) equation refit without adjustment for race Glucose [Mass/Vol] 116 mg/dL High 70 - 100 mg/dL [facility] Interpretation and review of laboratory results Abnormal [facility] Potassium [Moles/Vol] 3.2 mmol/L Low 3.5 - 5.1 mmol/L [facility] Sodium [Moles/Vol] 145 mmol/L 135 - 145 mmol/L [facility] Urea nitrogen [Mass/Vol] 33 mg/dL High 9 - 20 mg/dL [facility] CBC W Auto Differential pane l (Bld)Ordered By: Emily Telles on 03-08-2023 Basophils (Bld) [#/Vol] 0.0 10*3/uL 0.0 - 0.2 10*3/uL [facility] Basophils/100 WBC (Bld) 0.3 % 0.0 - 2.0 % [facility] Eosinophils (Bld) [#/Vol] 0.3 10*3/uL 0.0 - 0.5 10*3/uL [facility] Eosinophils/100 WBC (Bld) 4.7 % 1.0 - 6.0 % [facility] Erythrocyte distribution width (RBC) [Ratio] 14.4 % 11.5 - 14.5 % [facility] Hematocrit (Bld) [Volume fraction] 35.7 % Low 40.0 - 52.0 % [facility] Hemoglobin (Bld) [Mass/Vol] 11.7 g/dL Low 13.0 - 18.0 g/dL [facility] Interpretation and review of laboratory results Abnormal [facility] Lymphocytes (Bld) [#/Vol] 1.6 10*3/uL 1.0 - 4.3 10*3/uL [facility] Lymphocytes/100 WBC (Bld) 25.2 % 20.0 - 40.0 % [facility] MCH (RBC) [Entitic mass] 30.0 pg 26. 0 - 34.0 pg [facility] MCHC (RBC) [Mass/Vol] 32.7 % 32.0 - 36.0 % [facility] MCV (RBC) [Entitic vol] 91.6 fL 80.0 - 98.0 fL [facility] Monocytes (Bld) [#/Vol] 0.6 10*3/uL 0.0 - 0.8 10*3/uL [facility] Monocytes/100 WBC (Bld) 9.1 % 2.0 - 10.0 % [facility] Neutrophils (Bld) [#/Vol] 3.8 10*3/uL 1.8 - 7.0 10*3/uL [facility] Neutrophils/100 WBC (Bld) 60.7 % 40.0 - 80.0 % [facility] Nucleated RBC/100 WBC (Bld) [Ratio] 0.0 % [facility] Platelet mean volume (Bld) [Entitic vol] 9.3 fL 7.4 - 12.4 fL [facility] Platelets (Bld) [#/Vol] 218 10*3/uL 140 - 440 10*3/uL [facility] RBC (Bld) [#/Vol] 3.89 10*6/uL Low 4.40 - 5.9 0 10*6/uL [facility] WBC (Bld) [#/Vol] 6.2 10*3/uL 3.6 - 10.7 10*3/uL [facility] Laboratory - Chemistry and C hemistry - challengeon 03-08-2023 Procalcitonin [Mass/Vol] 0.12 ng/mL High 0.0 0 - 0.09 ng/mL [facility] Laboratory - Microbiology an d Antimicrobial susceptibilityOrdered By: Sara Bay on 03-08-2023 SARS-CoV-2 (COVID-19) Ag IA.rapid Ql (Resp) Negative Negative [facility] Comment on above: A negative result do es not rule out the possibility of SARS-CoV-2 infection. NAAT-based methods should be considered for symptomatic patients presenting greater than seven days after onset of symptoms. Method: Lateral flow immunoassay. Fact sheets for healthcare providers and patients can be found at the following sites: https://www.[employer].gov/media/326278/download https://www.[employer].gov/media/071105/download Procalcitonin [Mass/Vol]on 03-08-2023 Interpretation and review of laboratory results Abnormal [facility] PCT <0.50 = Low risk of severe sepsis and/or septic shock. PCT >2.00 = High risk of severe sepsis and/or septic shock. [facility] SARS-CoV-2 (COVID-19) Ag IA. rapid Ql (Resp)Ordered By: Sara Bay on 03-08-2023 Interpretation and review of laboratory results Normal [facility] Basic metabolic 1998 panelon 03-07-2023 Anion gap [Moles/Vol] 3 mmol/L 3 - 13 mmol/L [facility] Calcium [Mass/Vol] 8.5 mg/dL 8.4 - 10. 4 mg/dL [facility] Chloride [Moles/Vol] 114 mmol/L High 98 - 10 7 mmol/L [facility] CO2 [Moles/Vol] 27 mmol/L 22 - 30 mmol/L [facility] Creatinine [Mass/Vol] 0.92 mg/dL 0.66 - 1.25 mg/dL [facility] GFR/1.73 sq M.predicted MDRD (S/P/Bld) [Vol rate/Area] - PINF [facility] Comment on above: Calculation based on the Chronic Kidney Disease Epidemiology Collaboration (CKD-EPI) equation refit without adjustment for race Glucose [Mass/Vol] 90 mg/dL 70 - 100 mg/dL [facility] Interpretation and review of laboratory results Abnormal [facility] Potassium [Moles/Vol] 3.9 mmol/L 3.5 - 5.1 mmol/L [facility] Sodium [Moles/Vol] 144 mmol/L 135 - 145 mmol/L [facility] Urea nitrogen [Mass/Vol] 50 mg/dL High 9 - 20 mg/dL [facility] Slightly Hemolyzed. Interpret K+ with caution. [facility] CBC W Auto Differential pane l (Bld)Ordered By: Preston Bowling on 03-07-2023 Basophils (Bld) [#/Vol] 0.0 10*3/uL 0.0 - 0.2 10*3/uL [facility] Basophils/100 WBC (Bld) 0.6 % 0.0 - 2.0 % [facility] Eosinophils (Bld) [#/Vol] 0.2 10*3/uL 0.0 - 0.5 10*3/uL [facility] Eosinophils/100 WBC (Bld) 3.3 % 1.0 - 6.0 % [facility] Erythrocyte distribution width (RBC) [Ratio] 14.7 % High 11.5 - 14.5 % [facility] Hematocrit (Bld) [Volume fraction] 37.9 % Low 40.0 - 52.0 % [facility] Hemoglobin (Bld) [Mass/Vol] 12.8 g/dL Low 13.0 - 18.0 g/dL [facility] Interpretation and review of laboratory results Abnormal [facility] Lymphocytes (Bld) [#/Vol] 1.4 10*3/uL 1.0 - 4.3 10*3/uL [facility] Lymphocytes/100 WBC (Bld) 21.5 % 20.0 - 40.0 % [facility] MCH (RBC) [Entitic mass] 30.8 pg 26. 0 - 34.0 pg [facility] MCHC (RBC) [Mass/Vol] 33.9 % 32.0 - 36.0 % [facility] MCV (RBC) [Entitic vol] 91.0 fL 80.0 - 98.0 fL [facility] Monocytes (Bld) [#/Vol] 0.6 10*3/uL 0.0 - 0.8 10*3/uL [facility] Monocytes/100 WBC (Bld) 9.4 % 2.0 - 10.0 % [facility] Neutrophils (Bld) [#/Vol] 4.3 10*3/uL 1.8 - 7.0 10*3/uL [facility] Neutrophils/100 WBC (Bld) 65.2 % 40.0 - 80.0 % [facility] Nucleated RBC/100 WBC (Bld) [Ratio] 0.1 % [facility] Platelet mean volume (Bld) [Entitic vol] 9.2 fL 7.4 - 12.4 fL [facility] Platelets (Bld) [#/Vol] 208 10*3/uL 140 - 440 10*3/uL [facility] RBC (Bld) [#/Vol] 4.16 10*6/uL Low 4.40 - 5.9 0 10*6/uL [facility] WBC (Bld) [#/Vol] 6.6 10*3/uL 3.6 - 10.7 10*3/uL [facility] - Drug toxicology on 03-07-2023 Vancomycin [Mass/Vol] 16.8 ug/mL 15.0 - 20.0 ug/mL [facility] No Panel Informationon 03-07 Interpretation and review of laboratory results Normal [facility] CBC W Auto Differential pane l (Bld)Ordered By: Alexus Gallardo on 03-06-2023 Basophils (Bld) [#/Vol] 0.0 10*3/uL 0.0 - 0.2 10*3/uL [facility] Basophils/100 WBC (Bld) 0.7 % 0.0 - 2.0 % [facility] Eosinophils (Bld) [#/Vol] 0.0 10*3/uL 0.0 - 0.5 10*3/uL [facility] Eosinophils/100 WBC (Bld) 0.2 % Low 1.0 - 6.0 % [facility] Erythrocyte distribution width (RBC) [Ratio] 14.9 % High 11.5 - 14.5 % [facility] Hematocrit (Bld) [Volume fraction] 44.2 % 40.0 - 52.0 % [facility] Hemoglobin (Bld) [Mass/Vol] 15.0 g/dL 13.0 - 18.0 g/dL [facility] Interpretation and review of laboratory results Abnormal [facility] Lymphocytes (Bld) [#/Vol] 0.9 10*3/uL Low 1.0 - 4.3 10*3/uL [facility] Lymphocytes/100 WBC (Bld) 12.1 % Low 20.0 - 40.0 % [facility] MCH (RBC) [Entitic mass] 30.9 pg 26. 0 - 34.0 pg [facility] MCHC (RBC) [Mass/Vol] 33.9 % 32.0 - 36.0 % [facility] MCV (RBC) [Entitic vol] 91.4 fL 80.0 - 98.0 fL [facility] Monocytes (Bld) [#/Vol] 0.5 10*3/uL 0.0 - 0.8 10*3/uL [facility] Monocytes/100 WBC (Bld) 6.8 % 2.0 - 10.0 % [facility] Neutrophils (Bld) [#/Vol] 5.9 10*3/uL 1.8 - 7.0 10*3/uL [facility] Neutrophils/100 WBC (Bld) 80.2 % High 40.0 - 80.0 % [facility] Nucleated RBC/100 WBC (Bld) [Ratio] 0.1 % [facility] Platelet mean volume (Bld) [Entitic vol] 10.1 fL 7.4 - 12.4 fL [facility] Platelets (Bld) [#/Vol] 217 10*3/uL 140 - 440 10*3/uL [facility] RBC (Bld) [#/Vol] 4.84 10*6/uL 4.40 - 5.9 0 10*6/uL [facility] WBC (Bld) [#/Vol] 7.4 10*3/uL 3.6 - 10.7 10*3/uL [facility] Comprehensive metabolic 1998 panelOrdered By: Riley Lentz on 03-06-2023 Albumin [Mass/Vol] 3.2 g/dL Low 3.5 - 5.0 g/dL [facility] ALP [Catalytic activity/Vol] 79 U/L 38 - 126 U/L [facility] ALT [Catalytic activity/Vol] 43 U/L 0 - 49 U/L [facility] Anion gap [Moles/Vol] 9 mmol/L 3 - 13 mmol/L [facility] AST [Catalytic activity/Vol] 34 U/L 15 - 46 U/L [facility] Bilirubin [Mass/Vol] 1.0 mg/dL 0.2 - 1 .3 mg/dL [facility] Calcium [Mass/Vol] 8.8 mg/dL 8.4 - 10. 4 mg/dL [facility] Chloride [Moles/Vol] 108 mmol/L High 98 - 10 7 mmol/L [facility] CO2 [Moles/Vol] 25 mmol/L 22 - 30 mmol/L [facility] Creatinine [Mass/Vol] 1.34 mg/dL High 0.66 - 1.25 mg/dL [facility] GFR/1.73 sq M.predicted MDRD (S/P/Bld) [Vol rate/Area] 58.1 mL/min/{1.73_m2} Low - [facility] Comment on above: Calculation based on the Chronic Kidney Disease Epidemiology Collaboration (CKD-EPI) equation refit without adjustment for race Glucose [Mass/Vol] 130 mg/dL High 70 - 100 mg/dL [facility] Interpretation and review of laboratory results Abnormal [facility] Potassium [Moles/Vol] 3.4 mmol/L Low 3.5 - 5.1 mmol/L [facility] Protein [Mass/Vol] 6.3 g/dL 6.3 - 8.2 g/dL [facility] Sodium [Moles/Vol] 143 mmol/L 135 - 145 mmol/L [facility] Urea nitrogen [Mass/Vol] 61 mg/dL High 9 - 20 mg/dL [facility] - Chemistry and C hemistry - challengeon 03-06-2023 Magnesium [Mass/Vol] 2.1 mg/dL 1.6 - 2 .3 mg/dL [facility] Magnesium [Mass/Vol] 2.0 mg/dL 1.6 - 2 .3 mg/dL [facility] Lipase [Catalytic activity/Vol] 35 U/L 23 - 300 U/L [facility] Lipase [Catalytic activity/V ol]on 03-06-2023 Interpretation and review of laboratory results Normal [facility] Magnesium [Mass/Vol]on 03-06 Interpretation and review of laboratory results Normal [facility] Moderately Hemolyzed . Interpret MAGNESIUM with caution. [facility] Interpretation and review of laboratory results Normal [facility] US Abdomen limitedon 023 Normal sonographic appearance of the right upper quadrant where visualized. Report Dictated on Electronically Signed By: Ramón Tavares Electronically Signed Date/Time: 03/06/2023 8:06 AM [facility] [employer] Patient Name: CATINA LAND : 1955 Exam Date/Time: 03/06/2023 07:53 Procedure: US ABDOMEN LIMITED Ordering Provider: FAITH NARSIMHA Reason For Exam: JAUNDICE EXAMINATION: RIGHT UPPER QUADRANT ULTRASOUND HISTORY: Jaundice TECHNIQUE: Sonography of the right upper quadrant was performed. Images were obtained and stored in a permanent archive. COMPARISON: CT abdomen/pelvis 03/05/2023 RESULT: Exam is somewhat degraded by limited windows due to bandaging. Pancreas: Normal sonographic appearance where visualized. Portions obscured: tail Liver: Echotexture: Normal, homogeneous. Echogenicity: Normal Surface contour: Smooth Lesions: None. Biliary: No intrahepatic biliary duct dilation. CBD: 0.3 cm at the hilum. Gallbladder: Normal caliber -Contents: No cholelithiasis -Wall: Normal -Other: No pericholecystic fluid. Reported negative sonographic Fuentes sign. Right Kidney: No hydronephrosis. 2 x 1 cm upper pole simple cyst. Ascites: None. [facility] Ramón Tavares MD - 03/06/2023 Patient Name: CATINA LAND : 1955 Exam Date/Time: 03/06/2023 07:53 Procedure: US ABDOMEN LIMITED Ordering Provider: FAITH NARSIMHA Reason For Exam: JAUNDICE EXAMINATION: RIGHT UPPER QUADRANT ULTRASOUND HISTORY: Jaundice TECHNIQUE: Sonography of the right upper quadrant was performed. Images were obtained and stored in a permanent archive. COMPARISON: CT abdomen/pelvis 03/05/2023 RESULT: Exam is somewhat degraded by limited windows due to bandaging. Pancreas: Normal sonographic appearance where visualized. Portions obscured: tail Liver: Echotexture: Normal, homogeneous. Echogenicity: Normal Surface contour: Smooth Lesions: None. Biliary: No intrahepatic biliary duct dilation. CBD: 0.3 cm at the hilum. Gallbladder: Normal caliber -Contents: No cholelithiasis -Wall: Normal -Other: No pericholecystic fluid. Reported negative sonographic Fuentes sign. Right Kidney: No hydronephrosis. 2 x 1 cm upper pole simple cyst. Ascites: None. IMPRESSION: Normal sonographic appearance of the right upper quadrant where visualized. Report Dictated on Electronically Signed By: Ramón Tavares Electronically Signed Date/Time: 03/06/2023 8:06 AM EDT [facility] Radiology Study observation (narrative) [facility] US Abdomen limitedOrdered By : Ramón Tavares on 03-06-2023 [employer] [facility] Work Phone: CBC W Auto Differential pane l (Bld)Ordered By: Marce Rob on 03-05-2023 Basophils (Bld) [#/Vol] 0.1 10*3/uL 0.0 - 0.2 10*3/uL [facility] Basophils/100 WBC (Bld) 0.5 % 0.0 - 2.0 % [facility] Eosinophils (Bld) [#/Vol] 0.0 10*3/uL 0.0 - 0.5 10*3/uL [facility] Eosinophils/100 WBC (Bld) 0.3 % Low 1.0 - 6.0 % [facility] Erythrocyte distribution width (RBC) [Ratio] 15.0 % High 11.5 - 14.5 % [facility] Hematocrit (Bld) [Volume fraction] 48.7 % 40.0 - 52.0 % [facility] Hemoglobin (Bld) [Mass/Vol] 16.6 g/dL 13.0 - 18.0 g/dL [facility] Interpretation and review of laboratory results Abnormal [facility] Lymphocytes (Bld) [#/Vol] 1.0 10*3/uL 1.0 - 4.3 10*3/uL [facility] Lymphocytes/100 WBC (Bld) 10.2 % Low 20.0 - 40.0 % [facility] MCH (RBC) [Entitic mass] 30.4 pg 26. 0 - 34.0 pg [facility] MCHC (RBC) [Mass/Vol] 34.1 % 32.0 - 36.0 % [facility] MCV (RBC) [Entitic vol] 89.1 fL 80.0 - 98.0 fL [facility] Monocytes (Bld) [#/Vol] 0.4 10*3/uL 0.0 - 0.8 10*3/uL [facility] Monocytes/100 WBC (Bld) 3.5 % 2.0 - 10.0 % [facility] Neutrophils (Bld) [#/Vol] 8.6 10*3/uL High 1.8 - 7.0 10*3/uL [facility] Neutrophils/100 WBC (Bld) 85.5 % High 40.0 - 80.0 % [facility] Nucleated RBC/100 WBC (Bld) [Ratio] 0.1 % [facility] Platelet mean volume (Bld) [Entitic vol] 9.9 fL 7.4 - 12.4 fL [facility] Platelets (Bld) [#/Vol] 303 10*3/uL 140 - 440 10*3/uL [facility] RBC (Bld) [#/Vol] 5.46 10*6/uL 4.40 - 5.9 0 10*6/uL [facility] WBC (Bld) [#/Vol] 10.1 10*3/uL 3.6 - 10.7 10*3/uL [facility] CT Abdomen and Pelvis WO and W contrast Little 03-05-2023 No focal consolidation is seen within the lungs. There is mild atelectasis within the lung bases. A few borderline-enlarged mediastinal lymph nodes are similar to the prior examination, probably reactive. Mild circumferential thickening of the mid to distal thoracic esophagus. This may reflect esophagitis. Correlation with endoscopy or upper GI series may be helpful. ABDOMEN AND PELVIS: The liver, gallbladder, pancreas, and left kidney appear within normal limits. There is a cyst arising from the upper pole of the right kidney measuring 2.5 cm. There are bilateral adrenal nodules, likely reflecting adenomatous as characterized on the noncontrast CT from 02/16/2023. There are a couple of vague areas of decreased density within the medial and posterior periphery of the spleen. These are not definitely seen on the noncontrast CT. The abdominal aorta is normal in caliber. Scattered vascular calcification is present. There is no retroperitoneal, pelvic, or inguinal lymphadenopathy. The urinary bladder appears grossly normal. The prostate does not appear enlarged. Large and small bowel loops appear grossly normal without evidence of wall thickening or dilatation. A PEG tube terminates within the stomach. The appendix appears normal. There is no free fluid or free air within the abdomen or pelvis. No lytic or blastic lesions are seen on the bone windows. IMPRESSION: There are a couple of vague areas of decreased density within the periphery of the spleen medially and posteriorly. The appearance is nonspecific. These could represent splenic infarcts, age uncertain. There are not evident on the CT from 02/16/2023, however may be obscured due to the lack of contrast on that examination. Bilateral adrenal nodules likely reflecting adenomas, stable in appearance. Right renal cyst. Report Dictated on Electronically Signed By: Tye Roper Electronically Signed Date/Time: 03/05/2023 8:49 PM EDT [facility] Patient Name: CATINA LAND : 1955 Exam Date/Time: 03/05/2023 20:35 Procedure: CT CHEST ABDOMEN PELVIS W CONTRAST Ordering Provider: JOHANSEN JAKLYN Reason For Exam: Sepsis CT CHEST, ABDOMEN, AND PELVIS WITH CONTRAST CLINICAL INDICATION: Sepsis Serial, axial CT images were obtained through the chest, abdomen, and pelvis after intravenous contrast. Dose reduction was employed with automated exposure control. 75 milliliters of Isovue 370 contrast was given intravenously. Oral contrast was not given for this examination. Coronal and sagittal reformatted images were also made available for interpretation. COMPARISON: CT chest dated 03/04/2023, CT abdomen and pelvis dated 02/16/2023 CHEST: No focal consolidation is seen within the lungs. Mild bilateral basilar atelectasis is present. There is no pleural effusion or pneumothorax. No pulmonary nodules are identified. There are a few borderline-enlarged mediastinal lymph nodes which are unchanged when compared to the prior examination. These are probably reactive. Heart size is within normal limits. There is no pericardial effusion. Sternotomy wires are noted with postoperative changes consistent with coronary artery bypass graft. There is mild, diffuse thickening of the mid to distal esophagus, similar to the prior examination. No lytic or blastic lesions are seen on the bone windows. [facility] Tey Roper MD - 03/05/2023 Patient Name: CATINA LAND : 1955 Exam Date/Time: 03/05/2023 20:35 Procedure: CT CHEST ABDOMEN PELVIS W CONTRAST Ordering Provider: JOHANSEN JAKLYN Reason For Exam: Sepsis CT CHEST, ABDOMEN, AND PELVIS WITH CONTRAST CLINICAL INDICATION: Sepsis Serial, axial CT images were obtained through the chest, abdomen, and pelvis after intravenous contrast. Dose reduction was employed with automated exposure control. 75 milliliters of Isovue 370 contrast was given intravenously. Oral contrast was not given for this examination. Coronal and sagittal reformatted images were also made available for interpretation. COMPARISON: CT chest dated 03/04/2023, CT abdomen and pelvis dated 02/16/2023 CHEST: No focal consolidation is seen within the lungs. Mild bilateral basilar atelectasis is present. There is no pleural effusion or pneumothorax. No pulmonary nodules are identified. There are a few borderline-enlarged mediastinal lymph nodes which are unchanged when compared to the prior examination. These are probably reactive. Heart size is within normal limits. There is no pericardial effusion. Sternotomy wires are noted with postoperative changes consistent with coronary artery bypass graft. There is mild, diffuse thickening of the mid to distal esophagus, similar to the prior examination. No lytic or blastic lesions are seen on the bone windows. IMPRESSION: No focal consolidation is seen within the lungs. There is mild atelectasis within the lung bases. A few borderline-enlarged mediastinal lymph nodes are similar to the prior examination, probably reactive. Mild circumferential thickening of the mid to distal thoracic esophagus. This may reflect esophagitis. Correlation with endoscopy or upper GI series may be helpful. ABDOMEN AND PELVIS: The liver, gallbladder, pancreas, and left kidney appear within normal limits. There is a cyst arising from the upper pole of the right kidney measuring 2.5 cm. There are bilateral adrenal nodules, likely reflecting adenomatous as characterized on the noncontrast CT from 02/16/2023. There are a couple of vague areas of decreased density within the medial and posterior periphery of the spleen. These are not definitely seen on the noncontrast CT. The abdominal aorta is normal in caliber. Scattered vascular calcification is present. There is no retroperitoneal, pelvic, or inguinal lymphadenopathy. The urinary bladder appears grossly normal. The prostate does not appear enlarged. Large and small bowel loops appear grossly normal without evidence of wall thickening or dilatation. A PEG tube terminates within the stomach. The appendix appears normal. There is no free fluid or free air within the abdomen or pelvis. No lytic or blastic lesions are seen on the bone windows. IMPRESSION: There are a couple of vague areas of decreased density within the periphery of the spleen medially and posteriorly. The appearance is nonspecific. These could represent splenic infarcts, age uncertain. There are not evident on the CT from 02/16/2023, however may be obscured due to the lack of contrast on that examination. Bilateral adrenal nodules likely reflecting adenomas, stable in appearance. Right renal cyst. Report Dictated on Electronically Signed By: Tye Roper Electronically Signed Date/Time: 03/05/2023 8:49 PM EDT [facility] Radiology Study observation (narrative) [facility] CT Abdomen and Pelvis WO and W contrast IVOrdered By: Tye Roper on 03-05-2023 [facility] Work Phone: Comprehensive metabolic 1998 panelOrdered By: Macy Argueta on 03-05-2023 Albumin [Mass/Vol] 4.0 g/dL 3.5 - 5.0 g/dL [facility] ALP [Catalytic activity/Vol] 74 U/L 38 - 126 U/L [facility] ALT [Catalytic activity/Vol] 54 U/L High 0 - 49 U/L [facility] Anion gap [Moles/Vol] 10 mmol/L 3 - 13 mmol/L [facility] AST [Catalytic activity/Vol] 67 U/L High 15 - 46 U/L [facility] Bilirubin [Mass/Vol] 1.5 mg/dL High 0.2 - 1 .3 mg/dL [facility] Calcium [Mass/Vol] 9.1 mg/dL 8.4 - 10. 4 mg/dL [facility] Chloride [Moles/Vol] 107 mmol/L 98 - 10 7 mmol/L [facility] CO2 [Moles/Vol] 22 mmol/L 22 - 30 mmol/L [facility] Creatinine [Mass/Vol] 1.36 mg/dL High 0.66 - 1.25 mg/dL [facility] GFR/1.73 sq M.predicted MDRD (S/P/Bld) [Vol rate/Area] 57.0 mL/min/{1.73_m2} Low - [facility] Comment on above: Calculation based on the Chronic Kidney Disease Epidemiology Collaboration (CKD-EPI) equation refit without adjustment for race Glucose [Mass/Vol] 127 mg/dL High 70 - 100 mg/dL [facility] Interpretation and review of laboratory results Abnormal [facility] Potassium [Moles/Vol] 5.5 mmol/L High 3.5 - 5.1 mmol/L [facility] Protein [Mass/Vol] 7.7 g/dL 6.3 - 8.2 g/dL [facility] Sodium [Moles/Vol] 140 mmol/L 135 - 145 mmol/L [facility] Urea nitrogen [Mass/Vol] 62 mg/dL High 9 - 20 mg/dL [facility] Moderately Hemolyzed . Interpret K+, GLUC, ALKP, AST, TP, ALB, TBIL with caution. [facility] - Chemistry and C hemistry - challengeon 03-05-2023 Lactate [Moles/Vol] 1.7 mmol/L 0.7 - 2. 0 mmol/L [facility] No Panel Informationon 03-05 Interpretation and review of laboratory results Normal [facility] Respiratory pathogens DNA an d RNA panel TERESA+probe (Nph)on 03-05-2023 Adenovirus Not detected Not Detected [facility] B. pertussis DNA TERESA+probe Ql (Unsp spec) Not detected Not Detected [facility] Bordetella parapertussis Not detected Not Detected [facility] Chlamydia pneumoniae Not detected Not Detected [facility] Coronavirus 229E Not detected Not Detected [facility] Coronavirus HKU1 Not detected Not Detected [facility] Coronavirus NL63 Not detected Not Detected [facility] Coronavirus OC43 Not detected Not Detected [facility] FLUAV RNA TERESA+non-probe Ql (Nph) Not detected Not Detected [facility] FLUBV RNA TERESA+non-probe Ql (Nph) Not detected Not Detected [facility] Human Metapneumovirus Not detected Not Detected [facility] Human Rhinovirus/Enterovirus Not detected Not Detected [facility] Interpretation and review of laboratory results Normal [facility] Mycoplasma pneumoniae Not detected Not Detected [facility] Parainfluenza 1 Not detected Not Detected [facility] Parainfluenza 2 Not detected Not Detected [facility] Parainfluenza 3 Not detected Not Detected [facility] Parainfluenza 4 Not detected Not Detected [facility] Respiratory Syncytial Virus Not detected Not Detected [facility] SARS-CoV-2 (COVID-19) RNA TERESA+non-probe Ql (Nph) Not detected Not Detected [facility] Methodology: Multipl ex PCR [facility] Basic metabolic 1998 panelon 03-04-2023 Anion gap [Moles/Vol] 4 mmol/L 3 - 13 mmol/L [facility] Calcium [Mass/Vol] 9.2 mg/dL 8.4 - 10. 4 mg/dL [facility] Chloride [Moles/Vol] 103 mmol/L 98 - 10 7 mmol/L [facility] CO2 [Moles/Vol] 33 mmol/L High 22 - 30 mmol/L [facility] Creatinine [Mass/Vol] 0.87 mg/dL 0.66 - 1.25 mg/dL [facility] GFR/1.73 sq M.predicted MDRD (S/P/Bld) [Vol rate/Area] - [facility] Comment on above: Calculation based on the Chronic Kidney Disease Epidemiology Collaboration (CKD-EPI) equation refit without adjustment for race Glucose [Mass/Vol] 112 mg/dL High 70 - 100 mg/dL [facility] Interpretation and review of laboratory results Abnormal [facility] Potassium [Moles/Vol] 4.2 mmol/L 3.5 - 5.1 mmol/L [facility] Sodium [Moles/Vol] 140 mmol/L 135 - 145 mmol/L [facility] Urea nitrogen [Mass/Vol] 44 mg/dL High 9 - 20 mg/dL [facility] CBC W Auto Differential pane l (Bld)Ordered By: Kimberlee Ruth on 03-04-2023 Basophils (Bld) [#/Vol] 0.1 10*3/uL 0.0 - 0.2 10*3/uL [facility] Basophils/100 WBC (Bld) 0.6 % 0.0 - 2.0 % [facility] Eosinophils (Bld) [#/Vol] 0.1 10*3/uL 0.0 - 0.5 10*3/uL [facility] Eosinophils/100 WBC (Bld) 1.1 % 1.0 - 6.0 % [facility] Erythrocyte distribution width (RBC) [Ratio] 14.9 % High 11.5 - 14.5 % [facility] Hematocrit (Bld) [Volume fraction] 44.4 % 40.0 - 52.0 % [facility] Hemoglobin (Bld) [Mass/Vol] 14.8 g/dL 13.0 - 18.0 g/dL [facility] Interpretation and review of laboratory results Abnormal [facility] Lymphocytes (Bld) [#/Vol] 1.2 10*3/uL 1.0 - 4.3 10*3/uL [facility] Lymphocytes/100 WBC (Bld) 11.2 % Low 20.0 - 40.0 % [facility] MCH (RBC) [Entitic mass] 30.2 pg 26. 0 - 34.0 pg [facility] MCHC (RBC) [Mass/Vol] 33.2 % 32.0 - 36.0 % [facility] MCV (RBC) [Entitic vol] 91.0 fL 80.0 - 98.0 fL [facility] Monocytes (Bld) [#/Vol] 0.8 10*3/uL 0.0 - 0.8 10*3/uL [facility] Monocytes/100 WBC (Bld) 7.4 % 2.0 - 10.0 % [facility] Neutrophils (Bld) [#/Vol] 8.7 10*3/uL High 1.8 - 7.0 10*3/uL [facility] Neutrophils/100 WBC (Bld) 79.7 % 40.0 - 80.0 % [facility] Nucleated RBC/100 WBC (Bld) [Ratio] 0.0 % [facility] Platelet mean volume (Bld) [Entitic vol] 9.3 fL 7.4 - 12.4 fL [facility] Platelets (Bld) [#/Vol] 251 10*3/uL 140 - 440 10*3/uL [facility] RBC (Bld) [#/Vol] 4.88 10*6/uL 4.40 - 5.9 0 10*6/uL [facility] WBC (Bld) [#/Vol] 10.9 10*3/uL High 3.6 - 10.7 10*3/uL [facility] Chest vessels WO and W c ontrast Little 03-04-2023 1. No pulmonary embolism or acute consolidative process in the lungs. 2. A few borderline and mildly enlarged mediastinal and bilateral hilar lymph nodes are nonspecific in etiology, similar in appearance to 2017. 3. Mild circumferential wall thickening of the distal esophagus, likely related to reflux esophagitis. Report Dictated on Electronically Signed By: Kyle Monae Electronically Signed Date/Time: 03/04/2023 8:22 PM EDT [facility] Patient Name: CATINA LAND : 1955 Exam Date/Time: 03/04/2023 20:04 Procedure: CT CHEST ANGIOGRAM W AND/OR WO IV CONTRAST Ordering Provider: GARCES CALEB Reason For Exam: Chest pain, nonspecific CLINICAL HISTORY: Chest pain COMPARISON: 04/13/2017 Technique: [address] images were obtained of the chest after the uneventful IV administration of 75 mL of Isovue-370. Image acquisition was timed for maximal opacification of the pulmonary arteries. Images were reformatted in coronal and sagittal projections. 3D reformats were generated concurrently by myself on a separate workstation to better visualize the gross vascular anatomy. Dose reduction was employed with automated exposure control. Pulmonary arteries: There is technically adequate opacification of the pulmonary arteries. No pulmonary embolus is identified. Aorta/Great Vessels: No aneurysmal dilatation or dissection. Lungs: Mild pulmonary emphysema with bibasilar atelectasis. No suspicious nodules or acute consolidative process. Pleura: No pleural effusion Heart: The heart is normal in size with no pericardial effusion. Mediastinum/Lary: A few borderline and mildly enlarged mediastinal and bilateral hilar lymph nodes measure up to 1.2 cm in short axis. Thyroid and Esophagus: Mild circumferential wall thickening of the distal esophagus. The thyroid is normal. Visualized Upper Abdomen: Bilateral adrenal thickening and mild nodularity, unchanged from 2017. Fluid attenuation right renal cyst. Gastrostomy tube in adequate position. No other significant abnormality. Chest wall/Lower neck: No masses or lymphadenopathy Bones: No suspicious osseous lesions. Mild degenerative changes of the thoracic spine. Median sternotomy wires. [facility] Dov, Kyle Hammond MD - 03/04/2023 Patient Name: CATINA LAND : 1955 Exam Date/Time: 03/04/2023 20:04 Procedure: CT CHEST ANGIOGRAM W AND/OR WO IV CONTRAST Ordering Provider: GARCES CALEB Reason For Exam: Chest pain, nonspecific CLINICAL HISTORY: Chest pain COMPARISON: 04/13/2017 Technique: [address] images were obtained of the chest after the uneventful IV administration of 75 mL of Isovue-370. Image acquisition was timed for maximal opacification of the pulmonary arteries. Images were reformatted in coronal and sagittal projections. 3D reformats were generated concurrently by myself on a separate workstation to better visualize the gross vascular anatomy. Dose reduction was employed with automated exposure control. Pulmonary arteries: There is technically adequate opacification of the pulmonary arteries. No pulmonary embolus is identified. Aorta/Great Vessels: No aneurysmal dilatation or dissection. Lungs: Mild pulmonary emphysema with bibasilar atelectasis. No suspicious nodules or acute consolidative process. Pleura: No pleural effusion Heart: The heart is normal in size with no pericardial effusion. Mediastinum/Lary: A few borderline and mildly enlarged mediastinal and bilateral hilar lymph nodes measure up to 1.2 cm in short axis. Thyroid and Esophagus: Mild circumferential wall thickening of the distal esophagus. The thyroid is normal. Visualized Upper Abdomen: Bilateral adrenal thickening and mild nodularity, unchanged from 2017. Fluid attenuation right renal cyst. Gastrostomy tube in adequate position. No other significant abnormality. Chest wall/Lower neck: No masses or lymphadenopathy Bones: No suspicious osseous lesions. Mild degenerative changes of the thoracic spine. Median sternotomy wires. IMPRESSION: 1. No pulmonary embolism or acute consolidative process in the lungs. 2. A few borderline and mildly enlarged mediastinal and bilateral hilar lymph nodes are nonspecific in etiology, similar in appearance to 2017. 3. Mild circumferential wall thickening of the distal esophagus, likely related to reflux esophagitis. Report Dictated on Electronically Signed By: Kyle Monae Electronically Signed Date/Time: 03/04/2023 8:22 PM EDT [employer] [facility] Radiology Study observation (narrative) [facility] - Chemistry and C hemistry - challengeon 03-04-2023 Troponin I.cardiac [Mass/Vol] 0.044 ng/mL High 0.000 - 0.034 ng/mL [employer] [facility] Troponin I.cardiac [Mass/Vol] 0.041 ng/mL High 0.000 - 0.034 ng/mL [facility] Troponin I.cardiac [Mass/Vol ]on 03-04-2023 Interpretation and review of laboratory results Abnormal [employer] [facility] Patients with high levels of Biotin oral intake (ie >5 mg/day) may have falsely decreased Troponin levels. [facility] Interpretation and review of laboratory results Abnormal [facility] Patients with high levels of Biotin oral intake (ie >5 mg/day) may have falsely decreased Troponin levels. [facility] XR Chest Single viewon 03-04 Impression: No acute consolidative process. Report Dictated on Electronically Signed By: Kyle Monae Electronically Signed Date/Time: 03/04/2023 6:35 PM EDT [facility] Patient Name: CATINA LAND : 1955 Exam Date/Time: 03/04/2023 18:22 Procedure: XR CHEST 1 VIEW Ordering Provider: JONES RABIA Reason For Exam: CHEST PAIN Clinical History: CHEST PAIN Comparison: 02/23/2023 Technique: Single AP radiograph of the chest. Findings: Median sternotomy wires and mediastinal surgical clips are present. A catheter hub overlies the right lower lung. Cardiomediastinal silhouette and pulmonary vasculature are within normal limits. Probable coronary artery stent. The lungs and pleural spaces are clear. No sizable pneumothorax. [facility] Kyle Monae MD - 03/04/2023 Patient Name: CATINA LAND : 1955 Exam Date/Time: 03/04/2023 18:22 Procedure: XR CHEST 1 VIEW Ordering Provider: JONES RABIA Reason For Exam: CHEST PAIN Clinical History: CHEST PAIN Comparison: 02/23/2023 Technique: Single AP radiograph of the chest. Findings: Median sternotomy wires and mediastinal surgical clips are present. A catheter hub overlies the right lower lung. Cardiomediastinal silhouette and pulmonary vasculature are within normal limits. Probable coronary artery stent. The lungs and pleural spaces are clear. No sizable pneumothorax. IMPRESSION: Impression: No acute consolidative process. Report Dictated on Electronically Signed By: Kyle Monae Electronically Signed Date/Time: 03/04/2023 6:35 PM EDT [facility] Radiology Study observation (narrative) [facility] XR Chest Single viewOrdered By: Kyle Monae on 03-04-2023 [facility] Work Phone: CBC panel Auto (Bld)on 02-25 Erythrocyte distribution width (RBC) [Ratio] 14.6 % High 11.5 - 14.5 % [facility] Hematocrit (Bld) [Volume fraction] 43.0 % 40.0 - 52.0 % [facility] Hemoglobin (Bld) [Mass/Vol] 14.6 g/dL 13.0 - 18.0 g/dL [facility] Interpretation and review of laboratory results Abnormal [facility] MCH (RBC) [Entitic mass] 30.7 pg 26. 0 - 34.0 pg [facility] MCHC (RBC) [Mass/Vol] 33.9 % 32.0 - 36.0 % [facility] MCV (RBC) [Entitic vol] 90.4 fL 80.0 - 98.0 fL [facility] Platelet mean volume (Bld) [Entitic vol] 10.7 fL 7.4 - 12.4 fL [facility] Platelets (Bld) [#/Vol] 263 10*3/uL 140 - 440 10*3/uL [facility] RBC (Bld) [#/Vol] 4.76 10*6/uL 4.40 - 5.9 0 10*6/uL [facility] WBC (Bld) [#/Vol] 7.7 10*3/uL 3.6 - 10.7 10*3/uL [facility] Comprehensive metabolic 1998 panelon 02-25-2023 Albumin [Mass/Vol] 3.6 g/dL 3.5 - 5.0 g/dL [facility] ALP [Catalytic activity/Vol] 99 U/L 38 - 126 U/L [facility] ALT [Catalytic activity/Vol] 72 U/L High 0 - 49 U/L [facility] Anion gap [Moles/Vol] 4 mmol/L 3 - 13 mmol/L [facility] AST [Catalytic activity/Vol] 51 U/L High 15 - 46 U/L [facility] Bilirubin [Mass/Vol] 0.7 mg/dL 0.2 - 1 .3 mg/dL [facility] Calcium [Mass/Vol] 9.2 mg/dL 8.4 - 10. 4 mg/dL [facility] Chloride [Moles/Vol] 100 mmol/L 98 - 10 7 mmol/L [facility] CO2 [Moles/Vol] 37 mmol/L High 22 - 30 mmol/L [facility] Creatinine [Mass/Vol] 1.09 mg/dL 0.66 - 1.25 mg/dL [facility] GFR/1.73 sq M.predicted MDRD (S/P/Bld) [Vol rate/Area] 74.4 mL/min/{1.73_m2} - PINF [facility] th Glucose [Mass/Vol] 133 mg/dL High 70 - 100 mg/dL [facility] Interpretation and review of laboratory results Abnormal [facility] Potassium [Moles/Vol] 3.8 mmol/L 3.5 - 5.1 mmol/L [facility] Protein [Mass/Vol] 6.7 g/dL 6.3 - 8.2 g/dL [facility] Sodium [Moles/Vol] 141 mmol/L 135 - 145 mmol/L [facility] Urea nitrogen [Mass/Vol] 62 mg/dL High 9 - 20 mg/dL [facility] - Microbiology an d Antimicrobial susceptibilityOrdered By: Miguel Cuenca on 02-25-2023 SARS-CoV-2 (COVID-19) Ag IA.rapid Ql (Resp) Negative Negative [facility] SARS-CoV-2 (COVID-19) Ag IA. rapid Ql (Resp)Ordered By: Miguel Cuenca on 02-25-2023 Interpretation and review of laboratory results Normal [facility] CBC panel Auto (Bld)on 02-24 Erythrocyte distribution width (RBC) [Ratio] 14.7 % High 11.5 - 14.5 % [facility] Hematocrit (Bld) [Volume fraction] 44.0 % 40.0 - 52.0 % [facility] Hemoglobin (Bld) [Mass/Vol] 14.7 g/dL 13.0 - 18.0 g/dL [facility] Interpretation and review of laboratory results Abnormal [facility] MCH (RBC) [Entitic mass] 29.7 pg 26. 0 - 34.0 pg [facility] MCHC (RBC) [Mass/Vol] 33.3 % 32.0 - 36.0 % [facility] MCV (RBC) [Entitic vol] 89.2 fL 80.0 - 98.0 fL [facility] Platelet mean volume (Bld) [Entitic vol] 10.4 fL 7.4 - 12.4 fL [facility] Platelets (Bld) [#/Vol] 284 10*3/uL 140 - 440 10*3/uL [facility] RBC (Bld) [#/Vol] 4.93 10*6/uL 4.40 - 5.9 0 10*6/uL [facility] WBC (Bld) [#/Vol] 8.1 10*3/uL 3.6 - 10.7 10*3/uL [facility] Comprehensive metabolic 1998 panelon 02-24-2023 Albumin [Mass/Vol] 3.8 g/dL 3.5 - 5.0 g/dL [facility] ALP [Catalytic activity/Vol] 94 U/L 38 - 126 U/L [facility] ALT [Catalytic activity/Vol] 77 U/L High 0 - 49 U/L [facility] Anion gap [Moles/Vol] 6 mmol/L 3 - 13 mmol/L [facility] AST [Catalytic activity/Vol] 56 U/L High 15 - 46 U/L [facility] Bilirubin [Mass/Vol] 0.8 mg/dL 0.2 - 1 .3 mg/dL [facility] Calcium [Mass/Vol] 9.4 mg/dL 8.4 - 10. 4 mg/dL [facility] Chloride [Moles/Vol] 100 mmol/L 98 - 10 7 mmol/L [facility] CO2 [Moles/Vol] 35 mmol/L High 22 - 30 mmol/L [facility] Creatinine [Mass/Vol] 1.09 mg/dL 0.66 - 1.25 mg/dL [facility] GFR/1.73 sq M.predicted MDRD (S/P/Bld) [Vol rate/Area] 74.4 mL/min/{1.73_m2} - PINF [facility] th Glucose [Mass/Vol] 125 mg/dL High 70 - 100 mg/dL [facility] Interpretation and review of laboratory results Abnormal [facility] Potassium [Moles/Vol] 4.1 mmol/L 3.5 - 5.1 mmol/L [facility] Protein [Mass/Vol] 6.9 g/dL 6.3 - 8.2 g/dL [facility] Sodium [Moles/Vol] 141 mmol/L 135 - 145 mmol/L [facility] Urea nitrogen [Mass/Vol] 52 mg/dL High 9 - 20 mg/dL [facility] CBC panel Auto (Bld)on 02-23 Erythrocyte distribution width (RBC) [Ratio] 14.6 % High 11.5 - 14.5 % [facility] Hematocrit (Bld) [Volume fraction] 41.5 % 40.0 - 52.0 % [facility] Hemoglobin (Bld) [Mass/Vol] 14.1 g/dL 13.0 - 18.0 g/dL [facility] Interpretation and review of laboratory results Abnormal [facility] MCH (RBC) [Entitic mass] 30.8 pg 26. 0 - 34.0 pg [facility] MCHC (RBC) [Mass/Vol] 33.9 % 32.0 - 36.0 % [facility] MCV (RBC) [Entitic vol] 91.0 fL 80.0 - 98.0 fL [facility] Platelet mean volume (Bld) [Entitic vol] 9.8 fL 7.4 - 12.4 fL [facility] Platelets (Bld) [#/Vol] 274 10*3/uL 140 - 440 10*3/uL [facility] RBC (Bld) [#/Vol] 4.56 10*6/uL 4.40 - 5.9 0 10*6/uL [facility] WBC (Bld) [#/Vol] 7.9 10*3/uL 3.6 - 10.7 10*3/uL [facility] Comprehensive metabolic 1998 panelon 02-23-2023 Albumin [Mass/Vol] 3.4 g/dL Low 3.5 - 5.0 g/dL [facility] ALP [Catalytic activity/Vol] 95 U/L 38 - 126 U/L [facility] ALT [Catalytic activity/Vol] 65 U/L High 0 - 49 U/L [facility] Anion gap [Moles/Vol] 3 mmol/L 3 - 13 mmol/L [facility] AST [Catalytic activity/Vol] 51 U/L High 15 - 46 U/L [facility] Bilirubin [Mass/Vol] 0.8 mg/dL 0.2 - 1 .3 mg/dL [facility] Calcium [Mass/Vol] 8.9 mg/dL 8.4 - 10. 4 mg/dL [facility] Chloride [Moles/Vol] 103 mmol/L 98 - 10 7 mmol/L [facility] CO2 [Moles/Vol] 34 mmol/L High 22 - 30 mmol/L [facility] Creatinine [Mass/Vol] 0.93 mg/dL 0.66 - 1.25 mg/dL [facility] GFR/1.73 sq M.predicted MDRD (S/P/Bld) [Vol rate/Area] 90.0 mL/min/{1.73_m2} - PINF [facility] th Glucose [Mass/Vol] 150 mg/dL High 70 - 100 mg/dL [facility] Interpretation and review of laboratory results Abnormal [facility] Potassium [Moles/Vol] 4.1 mmol/L 3.5 - 5.1 mmol/L [facility] Protein [Mass/Vol] 6.4 g/dL 6.3 - 8.2 g/dL [facility] Sodium [Moles/Vol] 140 mmol/L 135 - 145 mmol/L [facility] Urea nitrogen [Mass/Vol] 43 mg/dL High 9 - 20 mg/dL [facility] Natriuretic peptide B [Mass/ Vol]on 02-23-2023 Interpretation and review of laboratory results Abnormal [facility] Natriuretic peptide B (Bld) [Mass/Vol] 595 pg/mL High 0 - 125 pg/mL [facility] XR Chest 2 Viewson 3 FINDINGS AND IMPRESSION: SUPPORT DEVICES: None OSSEOUS STRUCTURES: Unremarkable. HEART AND MEDIASTINUM: The cardiomediastinal silhouette appears unchanged from the prior exam, including prior median sternotomy. LUNGS AND PLEURA: The lungs are clear. No sizable pleural effusion. Report Dictated on Electronically Signed By: Lew Fernandez Electronically Signed Date/Time: 02/23/2023 6:43 PM T [facility] 1955 [id number] Exam Date/Time: 02/23/2023 16:24 Procedure: XR CHEST 2 VIEWS Ordering Provider: TRAVIS OLIVIA Reason For Exam: Hypoxia PA AND LATERAL CHEST CLINICAL INDICATION: Hypoxia TECHNIQUE: PA and Lateral chest COMPARISON: 02/21/2023 [facility] Lew Fernandez MD - 02/23/2023 [facility] Name: CATINA [facility]AND [facility] 1955 [id number] Exam Date/Time: 02/23/2023 16:24 Procedure: XR CHEST 2 VIEWS Ordering Provider: TRAVIS OLIVIA Reason For Exam: Hypoxia PA AND LATERAL CHEST CLINICAL INDICATION: Hypoxia TECHNIQUE: PA and Lateral chest COMPARISON: 02/21/2023 IMPRESSION: FINDINGS AND IMPRESSION: SUPPORT DEVICES: None OSSEOUS STRUCTURES: Unremarkable. HEART AND MEDIASTINUM: The cardiomediastinal silhouette appears unchanged from the prior exam, including prior median sternotomy. LUNGS AND PLEURA: The lungs are clear. No sizable pleural effusion. Report Dictated on Electronically Signed By: Lew Fernandez Electronically Signed Date/Time: 02/23/2023 6:43 PM EDT [facility] Radiology Study observation (narrative) [facility] XR Chest 2 ViewsOrdered By: Lew Fernandez on 02-23-2023 [facility] Work Phone: CBC panel Auto (Bld)on 02-22 Erythrocyte distribution width (RBC) [Ratio] 14.5 % 11.5 - 14.5 % [facility] Hematocrit (Bld) [Volume fraction] 41.9 % 40.0 - 52.0 % [facility] Hemoglobin (Bld) [Mass/Vol] 14.0 g/dL 13.0 - 18.0 g/dL [facility] Interpretation and review of laboratory results Normal [facility] MCH (RBC) [Entitic mass] 30.4 pg 26. 0 - 34.0 pg [facility] MCHC (RBC) [Mass/Vol] 33.5 % 32.0 - 36.0 % [facility] MCV (RBC) [Entitic vol] 90.8 fL 80.0 - 98.0 fL [facility] Platelet mean volume (Bld) [Entitic vol] 9.8 fL 7.4 - 12.4 fL [facility] Platelets (Bld) [#/Vol] 285 10*3/uL 140 - 440 10*3/uL [facility] RBC (Bld) [#/Vol] 4.61 10*6/uL 4.40 - 5.9 0 10*6/uL [facility] WBC (Bld) [#/Vol] 8.8 10*3/uL 3.6 - 10.7 10*3/uL [facility] Comprehensive metabolic 1998 panelon 02-22-2023 Albumin [Mass/Vol] 3.3 g/dL Low 3.5 - 5.0 g/dL [facility] ALP [Catalytic activity/Vol] 93 U/L 38 - 126 U/L [facility] ALT [Catalytic activity/Vol] 61 U/L High 0 - 49 U/L [facility] Anion gap [Moles/Vol] 3 mmol/L 3 - 13 mmol/L [facility] AST [Catalytic activity/Vol] 51 U/L High 15 - 46 U/L [facility] Bilirubin [Mass/Vol] 0.7 mg/dL 0.2 - 1 .3 mg/dL [facility] Calcium [Mass/Vol] 8.8 mg/dL 8.4 - 10. 4 mg/dL [facility] Chloride [Moles/Vol] 104 mmol/L 98 - 10 7 mmol/L [facility] CO2 [Moles/Vol] 32 mmol/L High 22 - 30 mmol/L [facility] Creatinine [Mass/Vol] 1.00 mg/dL 0.66 - 1.25 mg/dL [facility] GFR/1.73 sq M.predicted MDRD (S/P/Bld) [Vol rate/Area] 82.5 mL/min/{1.73_m2} - PINF [facility] th Glucose [Mass/Vol] 137 mg/dL High 70 - 100 mg/dL [facility] Interpretation and review of laboratory results Abnormal [facility] Potassium [Moles/Vol] 4.1 mmol/L 3.5 - 5.1 mmol/L [facility] Protein [Mass/Vol] 6.5 g/dL 6.3 - 8.2 g/dL [facility] Sodium [Moles/Vol] 140 mmol/L 135 - 145 mmol/L [facility] Urea nitrogen [Mass/Vol] 43 mg/dL High 9 - 20 mg/dL [facility] CBC panel Auto (Bld)on 02-21 Erythrocyte distribution width (RBC) [Ratio] 14.2 % 11.5 - 14.5 % [facility] Hematocrit (Bld) [Volume fraction] 43.4 % 40.0 - 52.0 % [facility] Hemoglobin (Bld) [Mass/Vol] 14.2 g/dL 13.0 - 18.0 g/dL [facility] Interpretation and review of laboratory results Normal [facility] MCH (RBC) [Entitic mass] 29.8 pg 26. 0 - 34.0 pg [facility] MCHC (RBC) [Mass/Vol] 32.6 % 32.0 - 36.0 % [facility] MCV (RBC) [Entitic vol] 91.1 fL 80.0 - 98.0 fL [facility] Platelet mean volume (Bld) [Entitic vol] 9.4 fL 7.4 - 12.4 fL [facility] Platelets (Bld) [#/Vol] 338 10*3/uL 140 - 440 10*3/uL [facility] RBC (Bld) [#/Vol] 4.76 10*6/uL 4.40 - 5.9 0 10*6/uL [facility] WBC (Bld) [#/Vol] 9.7 10*3/uL 3.6 - 10.7 10*3/uL [facility] Comprehensive metabolic 1998 panelon 02-21-2023 Albumin [Mass/Vol] 3.3 g/dL Low 3.5 - 5.0 g/dL [facility] ALP [Catalytic activity/Vol] 91 U/L 38 - 126 U/L [facility] ALT [Catalytic activity/Vol] 65 U/L High 0 - 49 U/L [facility] Anion gap [Moles/Vol] 4 mmol/L 3 - 13 mmol/L [facility] AST [Catalytic activity/Vol] 57 U/L High 15 - 46 U/L [facility] Bilirubin [Mass/Vol] 0.7 mg/dL 0.2 - 1 .3 mg/dL [facility] Calcium [Mass/Vol] 8.7 mg/dL 8.4 - 10. 4 mg/dL [facility] Chloride [Moles/Vol] 104 mmol/L 98 - 10 7 mmol/L [facility] CO2 [Moles/Vol] 34 mmol/L High 22 - 30 mmol/L [facility] Creatinine [Mass/Vol] 1.12 mg/dL 0.66 - 1.25 mg/dL [facility] GFR/1.73 sq M.predicted MDRD (S/P/Bld) [Vol rate/Area] 72.0 mL/min/{1.73_m2} - PINF [facility] Glucose [Mass/Vol] 134 mg/dL High 70 - 100 mg/dL [facility] Interpretation and review of laboratory results Abnormal [facility] Potassium [Moles/Vol] 4.5 mmol/L 3.5 - 5.1 mmol/L [facility] Protein [Mass/Vol] 6.6 g/dL 6.3 - 8.2 g/dL [facility] Sodium [Moles/Vol] 141 mmol/L 135 - 145 mmol/L [facility] Urea nitrogen [Mass/Vol] 39 mg/dL High 9 - 20 mg/dL [facility] XR Chest Single viewon 02-21 [facility] Radiology Study observation (narrative) [facility] XR Chest Single viewOrdered By: Lindsay Charles on 02-21-2023 [facility] Work Phone: CBC panel Auto (Bld)on 02-20 Erythrocyte distribution width (RBC) [Ratio] 14.3 % 11.5 - 14.5 % [facility] Hematocrit (Bld) [Volume fraction] 42.7 % 40.0 - 52.0 % [facility] Hemoglobin (Bld) [Mass/Vol] 14.1 g/dL 13.0 - 18.0 g/dL [facility] Interpretation and review of laboratory results Normal [facility] MCH (RBC) [Entitic mass] 30.0 pg 26. 0 - 34.0 pg [facility] MCHC (RBC) [Mass/Vol] 32.9 % 32.0 - 36.0 % [facility] MCV (RBC) [Entitic vol] 91.0 fL 80.0 - 98.0 fL [facility] Platelet mean volume (Bld) [Entitic vol] 9.5 fL 7.4 - 12.4 fL [facility] Platelets (Bld) [#/Vol] 312 10*3/uL 140 - 440 10*3/uL [facility] RBC (Bld) [#/Vol] 4.70 10*6/uL 4.40 - 5.9 0 10*6/uL [facility] WBC (Bld) [#/Vol] 9.5 10*3/uL 3.6 - 10.7 10*3/uL [facility] Comprehensive metabolic 1998 panelon 02-20-2023 Albumin [Mass/Vol] 3.5 g/dL 3.5 - 5.0 g/dL [facility] ALP [Catalytic activity/Vol] 90 U/L 38 - 126 U/L [facility] ALT [Catalytic activity/Vol] 61 U/L High 0 - 49 U/L [facility] Anion gap [Moles/Vol] 6 mmol/L 3 - 13 mmol/L [facility] AST [Catalytic activity/Vol] 44 U/L 15 - 46 U/L [facility] Bilirubin [Mass/Vol] 0.7 mg/dL 0.2 - 1 .3 mg/dL [facility] Calcium [Mass/Vol] 8.8 mg/dL 8.4 - 10. 4 mg/dL [facility] Chloride [Moles/Vol] 106 mmol/L 98 - 10 7 mmol/L [facility] CO2 [Moles/Vol] 31 mmol/L High 22 - 30 mmol/L [facility] Creatinine [Mass/Vol] 0.98 mg/dL 0.66 - 1.25 mg/dL [facility] GFR/1.73 sq M.predicted MDRD (S/P/Bld) [Vol rate/Area] 84.5 mL/min/{1.73_m2} - PINF [facility] th Glucose [Mass/Vol] 125 mg/dL High 70 - 100 mg/dL [facility] Interpretation and review of laboratory results Abnormal [facility] Potassium [Moles/Vol] 4.4 mmol/L 3.5 - 5.1 mmol/L [facility] Protein [Mass/Vol] 6.4 g/dL 6.3 - 8.2 g/dL [facility] Sodium [Moles/Vol] 143 mmol/L 135 - 145 mmol/L [facility] Urea nitrogen [Mass/Vol] 39 mg/dL High 9 - 20 mg/dL [facility] CBC panel Auto (Bld)on 02-19 Erythrocyte distribution width (RBC) [Ratio] 14.2 % 11.5 - 14.5 % [facility] Hematocrit (Bld) [Volume fraction] 42.0 % 40.0 - 52.0 % [facility] Hemoglobin (Bld) [Mass/Vol] 13.9 g/dL 13.0 - 18.0 g/dL [facility] Interpretation and review of laboratory results Normal [facility] MCH (RBC) [Entitic mass] 29.8 pg 26. 0 - 34.0 pg [facility] MCHC (RBC) [Mass/Vol] 33.1 % 32.0 - 36.0 % [facility] MCV (RBC) [Entitic vol] 90.3 fL 80.0 - 98.0 fL [facility] Platelet mean volume (Bld) [Entitic vol] 10.3 fL 7.4 - 12.4 fL [facility] Platelets (Bld) [#/Vol] 319 10*3/uL 140 - 440 10*3/uL [facility] RBC (Bld) [#/Vol] 4.66 10*6/uL 4.40 - 5.9 0 10*6/uL [facility] WBC (Bld) [#/Vol] 8.9 10*3/uL 3.6 - 10.7 10*3/uL [facility] Comprehensive metabolic 1998 panelon 02-19-2023 Albumin [Mass/Vol] 3.3 g/dL Low 3.5 - 5.0 g/dL [facility] ALP [Catalytic activity/Vol] 92 U/L 38 - 126 U/L [facility] ALT [Catalytic activity/Vol] 61 U/L High 0 - 49 U/L [facility] Anion gap [Moles/Vol] 5 mmol/L 3 - 13 mmol/L [facility] AST [Catalytic activity/Vol] 45 U/L 15 - 46 U/L [facility] Bilirubin [Mass/Vol] 0.6 mg/dL 0.2 - 1 .3 mg/dL [facility] Calcium [Mass/Vol] 8.5 mg/dL 8.4 - 10. 4 mg/dL [facility] Chloride [Moles/Vol] 107 mmol/L 98 - 10 7 mmol/L [facility] CO2 [Moles/Vol] 31 mmol/L High 22 - 30 mmol/L [facility] Creatinine [Mass/Vol] 0.94 mg/dL 0.66 - 1.25 mg/dL [facility] GFR/1.73 sq M.predicted MDRD (S/P/Bld) [Vol rate/Area] 88.9 mL/min/{1.73_m2} - PINF [facility] Glucose [Mass/Vol] 107 mg/dL High 70 - 100 mg/dL [facility] Interpretation and review of laboratory results Abnormal [facility] Potassium [Moles/Vol] 3.9 mmol/L 3.5 - 5.1 mmol/L [facility] Protein [Mass/Vol] 6.1 g/dL Low 6.3 - 8.2 g/dL [facility] Sodium [Moles/Vol] 144 mmol/L 135 - 145 mmol/L [facility] Urea nitrogen [Mass/Vol] 42 mg/dL High 9 - 20 mg/dL [facility] CBC panel Auto (Bld)on 02-18 Erythrocyte distribution width (RBC) [Ratio] 13.9 % 11.5 - 14.5 % [facility] Hematocrit (Bld) [Volume fraction] 43.1 % 40.0 - 52.0 % [facility] Hemoglobin (Bld) [Mass/Vol] 14.7 g/dL 13.0 - 18.0 g/dL [facility] Interpretation and review of laboratory results Normal [facility] MCH (RBC) [Entitic mass] 30.7 pg 26. 0 - 34.0 pg [facility] MCHC (RBC) [Mass/Vol] 34.2 % 32.0 - 36.0 % [facility] MCV (RBC) [Entitic vol] 89.9 fL 80.0 - 98.0 fL [facility] Platelet mean volume (Bld) [Entitic vol] 10.6 fL 7.4 - 12.4 fL [facility] Platelets (Bld) [#/Vol] 306 10*3/uL 140 - 440 10*3/uL [facility] RBC (Bld) [#/Vol] 4.79 10*6/uL 4.40 - 5.9 0 10*6/uL [facility] WBC (Bld) [#/Vol] 10.5 10*3/uL 3.6 - 10.7 10*3/uL [facility] Comprehensive metabolic 1998 panelon 02-18-2023 Albumin [Mass/Vol] 3.3 g/dL Low 3.5 - 5.0 g/dL [facility] ALP [Catalytic activity/Vol] 89 U/L 38 - 126 U/L [facility] ALT [Catalytic activity/Vol] 71 U/L High 0 - 49 U/L [facility] Anion gap [Moles/Vol] 7 mmol/L 3 - 13 mmol/L [facility] AST [Catalytic activity/Vol] 44 U/L 15 - 46 U/L [facility] Bilirubin [Mass/Vol] 0.8 mg/dL 0.2 - 1 .3 mg/dL [facility] Calcium [Mass/Vol] 8.5 mg/dL 8.4 - 10. 4 mg/dL [facility] Chloride [Moles/Vol] 108 mmol/L High 98 - 10 7 mmol/L [facility] CO2 [Moles/Vol] 29 mmol/L 22 - 30 mmol/L [facility] Creatinine [Mass/Vol] 0.97 mg/dL 0.66 - 1.25 mg/dL [facility] GFR/1.73 sq M.predicted MDRD (S/P/Bld) [Vol rate/Area] 85.6 mL/min/{1.73_m2} - PINF [facility] th Glucose [Mass/Vol] 114 mg/dL High 70 - 100 mg/dL [facility] Interpretation and review of laboratory results Abnormal [facility] Potassium [Moles/Vol] 3.6 mmol/L 3.5 - 5.1 mmol/L [facility] Protein [Mass/Vol] 6.5 g/dL 6.3 - 8.2 g/dL [facility] Sodium [Moles/Vol] 144 mmol/L 135 - 145 mmol/L [facility] Urea nitrogen [Mass/Vol] 44 mg/dL High 9 - 20 mg/dL [facility] Bilirubin.indirect [Mass/Vol ]on 02-17-2023 Bilirubin.conjugated [Mass/Vol] 0.0 mg/dL 0.0 - 0.3 mg/dL [facility] Interpretation and review of laboratory results Normal [facility] CBC panel Auto (Bld)on 02-17 Erythrocyte distribution width (RBC) [Ratio] 14.0 % 11.5 - 14.5 % [facility] Hematocrit (Bld) [Volume fraction] 43.1 % 40.0 - 52.0 % [facility] Hemoglobin (Bld) [Mass/Vol] 14.5 g/dL 13.0 - 18.0 g/dL [facility] Interpretation and review of laboratory results Abnormal [facility] MCH (RBC) [Entitic mass] 29.8 pg 26. 0 - 34.0 pg [facility] MCHC (RBC) [Mass/Vol] 33.8 % 32.0 - 36.0 % [facility] MCV (RBC) [Entitic vol] 88.3 fL 80.0 - 98.0 fL [facility] Platelet mean volume (Bld) [Entitic vol] 10.1 fL 7.4 - 12.4 fL [facility] Platelets (Bld) [#/Vol] 303 10*3/uL 140 - 440 10*3/uL [facility] RBC (Bld) [#/Vol] 4.88 10*6/uL 4.40 - 5.9 0 10*6/uL [facility] WBC (Bld) [#/Vol] 12.3 10*3/uL High 3.6 - 10.7 10*3/uL [facility] Comprehensive metabolic 1998 panelon 02-17-2023 Albumin [Mass/Vol] 3.2 g/dL Low 3.5 - 5.0 g/dL [facility] ALP [Catalytic activity/Vol] 91 U/L 38 - 126 U/L [facility] ALT [Catalytic activity/Vol] 92 U/L High 0 - 49 U/L [facility] Anion gap [Moles/Vol] 6 mmol/L 3 - 13 mmol/L [facility] AST [Catalytic activity/Vol] 55 U/L High 15 - 46 U/L [facility] Bilirubin [Mass/Vol] 1.1 mg/dL 0.2 - 1 .3 mg/dL [facility] Calcium [Mass/Vol] 9.0 mg/dL 8.4 - 10. 4 mg/dL [facility] Chloride [Moles/Vol] 109 mmol/L High 98 - 10 7 mmol/L [facility] CO2 [Moles/Vol] 28 mmol/L 22 - 30 mmol/L [facility] Creatinine [Mass/Vol] 0.87 mg/dL 0.66 - 1.25 mg/dL [facility] GFR/1.73 sq M.predicted MDRD (S/P/Bld) [Vol rate/Area] - PINF [facility] Glucose [Mass/Vol] 99 mg/dL 70 - 100 mg/dL [facility] Interpretation and review of laboratory results Abnormal [facility] Potassium [Moles/Vol] 3.7 mmol/L 3.5 - 5.1 mmol/L [facility] Protein [Mass/Vol] 5.6 g/dL Low 6.3 - 8.2 g/dL [facility] Sodium [Moles/Vol] 144 mmol/L 135 - 145 mmol/L [facility] Urea nitrogen [Mass/Vol] 34 mg/dL High 9 - 20 mg/dL [facility] No Panel Informationon 02-17 [facility] Interpretation and review of laboratory results Abnormal [facility] OSMOLALITY, SERUM 311 High [facility] XR Chest Single viewon 02-17 1. No radiographic acute cardiopulmonary process. 2. Enteric tube remains. Report Dictated on Electronically Signed By: Alfreda Thacker Electronically Signed Date/Time: 02/17/2023 6:28 AM EDT [facility] Patient Name: CATINA LAND : 1955 Exam Date/Time: 02/17/2023 05:30 Procedure: XR CHEST 1 VIEW Ordering Provider: RANDALL SHANNON Reason For Exam: hypoxia INDICATION: Hypoxia. VIEWS: Chest portable-1 image COMPARISON: 02/15/2023 FINDINGS: An enteric tube remains. Median sternotomy wires and clips are present. Cardiac monitoring wires and leads are present. The trachea is midline. The cardiac silhouette is within normal limits. The costophrenic angles are sharp. No confluent consolidation. [facility] Alfreda Thacker MD - 02/17/2023 Patient Name: CATINA LAND : 1955 Exam Date/Time: 02/17/2023 05:30 Procedure: XR CHEST 1 VIEW Ordering Provider: RANDALL SHANNON Reason For Exam: hypoxia INDICATION: Hypoxia. VIEWS: Chest portable-1 image COMPARISON: 02/15/2023 FINDINGS: An enteric tube remains. Median sternotomy wires and clips are present. Cardiac monitoring wires and leads are present. The trachea is midline. The cardiac silhouette is within normal limits. The costophrenic angles are sharp. No confluent consolidation. IMPRESSION: 1. No radiographic acute cardiopulmonary process. 2. Enteric tube remains. Report Dictated on Electronically Signed By: Alfreda Thacker Electronically Signed Date/Time: 02/17/2023 6:28 AM EDT [facility] RADIOLOGY SYSTEM [facility] Radiology Study observation (narrative) [facility] alth XR Chest Single viewOrdered By: Alfreda Thacker on 02-17-2023 [facility] Work Phone: Bilirubin.indirect [Mass/Vol ]on 02-16-2023 Bilirubin.conjugated [Mass/Vol] 0.0 mg/dL 0.0 - 0.3 mg/dL [facility] Interpretation and review of laboratory results Normal [facility] CBC panel Auto (Bld)on 02-16 Erythrocyte distribution width (RBC) [Ratio] 14.0 % 11.5 - 14.5 % [facility] Hematocrit (Bld) [Volume fraction] 43.3 % 40.0 - 52.0 % [facility] Hemoglobin (Bld) [Mass/Vol] 14.6 g/dL 13.0 - 18.0 g/dL [facility] Interpretation and review of laboratory results Normal [facility] MCH (RBC) [Entitic mass] 29.8 pg 26. 0 - 34.0 pg [facility] MCHC (RBC) [Mass/Vol] 33.8 % 32.0 - 36.0 % [facility] MCV (RBC) [Entitic vol] 88.3 fL 80.0 - 98.0 fL [facility] Platelet mean volume (Bld) [Entitic vol] 9.8 fL 7.4 - 12.4 fL [facility] Platelets (Bld) [#/Vol] 296 10*3/uL 140 - 440 10*3/uL [facility] RBC (Bld) [#/Vol] 4.91 10*6/uL 4.40 - 5.9 0 10*6/uL [facility] WBC (Bld) [#/Vol] 9.6 10*3/uL 3.6 - 10.7 10*3/uL [facility] CT Abdomen WO contraston [facility] Radiology Study observation (narrative) Jose C jordan Comprehensive metabolic 1998 panelon 02-16-2023 Albumin [Mass/Vol] 3.1 g/dL Low 3.5 - 5.0 g/dL [facility] ALP [Catalytic activity/Vol] 79 U/L 38 - 126 U/L [facility] ALT [Catalytic activity/Vol] 102 U/L High 0 - 49 U/L [facility] Anion gap [Moles/Vol] 5 mmol/L 3 - 13 mmol/L [facility] AST [Catalytic activity/Vol] 66 U/L High 15 - 46 U/L [facility] Bilirubin [Mass/Vol] 0.6 mg/dL 0.2 - 1 .3 mg/dL [facility] Calcium [Mass/Vol] 8.6 mg/dL 8.4 - 10. 4 mg/dL [facility] Chloride [Moles/Vol] 109 mmol/L High 98 - 10 7 mmol/L [facility] CO2 [Moles/Vol] 32 mmol/L High 22 - 30 mmol/L [facility] Creatinine [Mass/Vol] 0.80 mg/dL 0.66 - 1.25 mg/dL [facility] GFR/1.73 sq M.predicted MDRD (S/P/Bld) [Vol rate/Area] - PINF [facility] Glucose [Mass/Vol] 113 mg/dL High 70 - 100 mg/dL [facility] Interpretation and review of laboratory results Abnormal [facility] Potassium [Moles/Vol] 3.7 mmol/L 3.5 - 5.1 mmol/L [facility] Protein [Mass/Vol] 5.6 g/dL Low 6.3 - 8.2 g/dL [facility] Sodium [Moles/Vol] 145 mmol/L 135 - 145 mmol/L [facility] Urea nitrogen [Mass/Vol] 30 mg/dL High 9 - 20 mg/dL [facility] Guidance for placement of G- tube in Gastrointestinal tract upperon 02-16-2023 [facility] Radiology Study observation (narrative) Jose C jordan Guidance for placement of G- tube in Gastrointestinal tract upperOrdered By: Enzo Landa on 02-16-2023 [facility] Work Phone: Hepatitis 1996 panel (S)on 0 02-16-2023 HAV IgM IA Ql Not detected Not Detected [facility] HBV core IgM IA Ql Not detected Not Detected [facility] HBV surface Ag IA Ql Not detected Not Detected [facility] HCV Ab IA Ql Not detected Not Detected [facility] Interpretation and review of laboratory results Normal [facility] Laboratory - Chemistry and C hemistry - challengeon 02-16-2023 Sodium [Moles/Vol] 144 mmol/L 135 - 145 mmol/L [facility] Sodium [Moles/Vol] 143 mmol/L 135 - 145 mmol/L [facility] Laboratory - Coagulationon 0 02-16-2023 PT Coag (Bld) [Time] 11.5 s 9.0 - 1 2.0 s [facility] No Panel Informationon 02-16 Interpretation and review of laboratory results Normal [facility] Interpretation and review of laboratory results Abnormal [facility] OSMOLALITY, SERUM 308 High [facility] Interpretation and review of laboratory results Normal [facility] No Panel InformationOrdered By: Kathryn Moraes on 02-16-2023 Interpretation and review of laboratory results Abnormal [facility] OSMOLALITY, SERUM 308 High [facility] No Panel InformationOrdered By: Riley Lentz on 02-16-2023 Interpretation and review of laboratory results Abnormal [facility] OSMOLALITY, SERUM 312 High [facility] PT Coag (Bld) [Time]on 02-16 INR Coag (PPP) [Relative time] 1.1 {INR} 0.9 - 1.1 [facility] Interpretation and review of laboratory results Normal [facility] US Abdomen limitedon 023 [facility] RADIOLOGY SYSTEM [facility] Radiology Study observation (narrative) [facility] alth Bilirubin.indirect [Mass/Vol ]on 02-15-2023 Bilirubin.conjugated [Mass/Vol] 0.0 mg/dL 0.0 - 0.3 mg/dL [facility] Interpretation and review of laboratory results Normal [facility] CBC panel Auto (Bld)on 02-15 Erythrocyte distribution width (RBC) [Ratio] 14.1 % 11.5 - 14.5 % [facility] Hematocrit (Bld) [Volume fraction] 42.9 % 40.0 - 52.0 % [facility] Hemoglobin (Bld) [Mass/Vol] 14.4 g/dL 13.0 - 18.0 g/dL [facility] Interpretation and review of laboratory results Normal [facility] MCH (RBC) [Entitic mass] 29.9 pg 26. 0 - 34.0 pg [facility] MCHC (RBC) [Mass/Vol] 33.6 % 32.0 - 36.0 % [facility] MCV (RBC) [Entitic vol] 88.8 fL 80.0 - 98.0 fL [facility] Platelet mean volume (Bld) [Entitic vol] 9.2 fL 7.4 - 12.4 fL [facility] Platelets (Bld) [#/Vol] 289 10*3/uL 140 - 440 10*3/uL [facility] RBC (Bld) [#/Vol] 4.83 10*6/uL 4.40 - 5.9 0 10*6/uL [facility] WBC (Bld) [#/Vol] 10.2 10*3/uL 3.6 - 10.7 10*3/uL [facility] CT Head WO contraston 2022 [facility] RADIOLOG[facility] RADIOLOGY SYSTEM [facility] Radiology Study observation (narrative) [facility] metabolic 1998 panelon 02-15-2023 Albumin [Mass/Vol] 3.1 g/dL Low 3.5 - 5.0 g/dL [facility] ALP [Catalytic activity/Vol] 80 U/L 38 - 126 U/L [facility] ALT [Catalytic activity/Vol] 87 U/L High 0 - 49 U/L [facility] Anion gap [Moles/Vol] 2 mmol/L Low 3 - 13 mmol/L [facility] AST [Catalytic activity/Vol] 55 U/L High 15 - 46 U/L [facility] Bilirubin [Mass/Vol] 0.7 mg/dL 0.2 - 1 .3 mg/dL [facility] Calcium [Mass/Vol] 8.6 mg/dL 8.4 - 10. 4 mg/dL [facility] Chloride [Moles/Vol] 111 mmol/L High 98 - 10 7 mmol/L [facility] CO2 [Moles/Vol] 33 mmol/L High 22 - 30 mmol/L [facility] Creatinine [Mass/Vol] 0.88 mg/dL 0.66 - 1.25 mg/dL [facility] GFR/1.73 sq M.predicted MDRD (S/P/Bld) [Vol rate/Area] - PINF [facility] Glucose [Mass/Vol] 125 mg/dL High 70 - 100 mg/dL [facility] Interpretation and review of laboratory results Abnormal [facility] Potassium [Moles/Vol] 3.5 mmol/L 3.5 - 5.1 mmol/L [facility] Protein [Mass/Vol] 5.4 g/dL Low 6.3 - 8.2 g/dL [facility] Sodium [Moles/Vol] 146 mmol/L High 135 - 145 mmol/L [facility] Urea nitrogen [Mass/Vol] 34 mg/dL High 9 - 20 mg/dL [facility] Laboratory - Chemistry and C hemistry - challengeon 02-15-2023 Sodium [Moles/Vol] 143 mmol/L 135 - 145 mmol/L [facility] Sodium [Moles/Vol] 146 mmol/L High 135 - 145 mmol/L [facility] Magnesium [Mass/Vol] 2.2 mg/dL 1.6 - 2 .3 mg/dL [facility] Magnesium [Mass/Vol]on 02-15 Interpretation and review of laboratory results Normal [facility] No Panel Informationon 02-15 Interpretation and review of laboratory results Normal [facility] Interpretation and review of laboratory results Abnormal [facility] OSMOLALITY, SERUM 308 High [facility] Interpretation and review of laboratory results Abnormal [facility] Interpretation and review of laboratory results Abnormal [facility] OSMOLALITY, SERUM 312 High [facility] Interpretation and review of laboratory results Abnormal [facility] OSMOLALITY, SERUM 317 High [facility] XR Chest Single viewon 02-15 Interval resolution of pulmonary vascular congestion. Report Dictated on Electronically Signed By: Alfreda Thacker Electronically Signed Date/Time: 02/15/2023 5:40 AM [facility] [employer] RADI[facility]Y SYSTEM Patient Name: CATINA LAND : 1955 Exam Date/Time: 02/15/2023 05:31 Procedure: XR CHEST 1 VIEW Ordering Provider: EDDY JESSICA Reason For Exam: concern for aspiration INDICATION: Inpatient. Concern for aspiration. VIEWS: Chest portable-1 image COMPARISON: 02/09/2023 FINDINGS: An enteric tube is present coursing below the hemidiaphragm but excluded from [id number]. Median sternotomy wires and clips are present. Cardiac monitoring wires and leads are present. Trachea is midline. The heart is not enlarged. The costophrenic angles are sharp. No confluent consolidation. [facility] Alfreda Thacker MD - 02/15/2023 Patient Name: CATINA LAND : 1955 Exam Date/Time: 02/15/2023 05:31 Procedure: XR CHEST 1 VIEW Ordering Provider: EDDY JESSICA Reason For Exam: concern for aspiration INDICATION: Inpatient. Concern for aspiration. VIEWS: Chest portable-1 image COMPARISON: 02/09/2023 FINDINGS: An enteric tube is present coursing below the hemidiaphragm but excluded from [id number]. Median sternotomy wires and clips are present. Cardiac monitoring wires and leads are present. Trachea is midline. The heart is not enlarged. The costophrenic angles are sharp. No confluent consolidation. IMPRESSION: Interval resolution of pulmonary vascular congestion. Report Dictated on Electronically Signed By: Alfreda Thacker Electronically Signed Date/Time: 02/15/2023 5:40 AM EDT [facility] RADIOLOGY SYSTEM [facility] RADIOLOGY SYSTEM [facility] Radiology Study observation (narrative) [facility] alth XR Chest Single viewOrdered By: Alfreda Thacker on 02-15-2023 [facility] [employer] Work Phone: Bilirubin.indirect [Mass/Vol ]on 02-14-2023 Bilirubin.conjugated [Mass/Vol] 0.0 mg/dL 0.0 - 0.3 mg/dL [facility] Interpretation and review of laboratory results Normal [facility] CBC panel Auto (Bld)on 02-14 Erythrocyte distribution width (RBC) [Ratio] 14.0 % 11.5 - 14.5 % [facility] Hematocrit (Bld) [Volume fraction] 44.5 % 40.0 - 52.0 % [facility] Hemoglobin (Bld) [Mass/Vol] 15.0 g/dL 13.0 - 18.0 g/dL [facility] Interpretation and review of laboratory results Normal [facility] MCH (RBC) [Entitic mass] 30.1 pg 26. 0 - 34.0 pg [facility] MCHC (RBC) [Mass/Vol] 33.7 % 32.0 - 36.0 % [facility] MCV (RBC) [Entitic vol] 89.2 fL 80.0 - 98.0 fL [facility] Platelet mean volume (Bld) [Entitic vol] 9.4 fL 7.4 - 12.4 fL [facility] Platelets (Bld) [#/Vol] 286 10*3/uL 140 - 440 10*3/uL [facility] RBC (Bld) [#/Vol] 4.98 10*6/uL 4.40 - 5.9 0 10*6/uL [facility] WBC (Bld) [#/Vol] 8.8 10*3/uL 3.6 - 10.7 10*3/uL [facility] Comprehensive metabolic 1998 panelon 02-14-2023 Albumin [Mass/Vol] 3.1 g/dL Low 3.5 - 5.0 g/dL [facility] ALP [Catalytic activity/Vol] 79 U/L 38 - 126 U/L [facility] ALT [Catalytic activity/Vol] 93 U/L High 0 - 49 U/L [facility] Anion gap [Moles/Vol] 5 mmol/L 3 - 13 mmol/L [facility] AST [Catalytic activity/Vol] 64 U/L High 15 - 46 U/L [facility] Bilirubin [Mass/Vol] 0.8 mg/dL 0.2 - 1 .3 mg/dL [facility] Calcium [Mass/Vol] 8.6 mg/dL 8.4 - 10. 4 mg/dL [facility] Chloride [Moles/Vol] 114 mmol/L High 98 - 10 7 mmol/L [facility] CO2 [Moles/Vol] 30 mmol/L 22 - 30 mmol/L [facility] Creatinine [Mass/Vol] 0.90 mg/dL 0.66 - 1.25 mg/dL [facility] GFR/1.73 sq M.predicted MDRD (S/P/Bld) [Vol rate/Area] - PINF [facility] Glucose [Mass/Vol] 110 mg/dL High 70 - 100 mg/dL [facility] Interpretation and review of laboratory results Abnormal [facility] Potassium [Moles/Vol] 3.7 mmol/L 3.5 - 5.1 mmol/L [facility] Protein [Mass/Vol] 5.7 g/dL Low 6.3 - 8.2 g/dL [facility] Sodium [Moles/Vol] 149 mmol/L High 135 - 145 mmol/L [facility] Urea nitrogen [Mass/Vol] 40 mg/dL High 9 - 20 mg/dL [facility] Laboratory - Chemistry and C hemistry - challengeon 02-14-2023 Sodium [Moles/Vol] 148 mmol/L High 135 - 145 mmol/L [facility] No Panel Informationon 02-14 Interpretation and review of laboratory results Abnormal [facility] Interpretation and review of laboratory results Abnormal [facility] OSMOLALITY, SERUM 323 High [facility] No Panel InformationOrdered By: Jose Smith on 02-14-2023 Interpretation and review of laboratory results Abnormal [facility] OSMOLALITY, SERUM 323 High [facility] CBC panel Auto (Bld)on 02-13 Erythrocyte distribution width (RBC) [Ratio] 14.0 % 11.5 - 14.5 % [facility] Hematocrit (Bld) [Volume fraction] 48.6 % 40.0 - 52.0 % [facility] Hemoglobin (Bld) [Mass/Vol] 16.3 g/dL 13.0 - 18.0 g/dL [facility] Interpretation and review of laboratory results Normal [facility] MCH (RBC) [Entitic mass] 29.9 pg 26. 0 - 34.0 pg [facility] MCHC (RBC) [Mass/Vol] 33.6 % 32.0 - 36.0 % [facility] MCV (RBC) [Entitic vol] 89.0 fL 80.0 - 98.0 fL [facility] Platelet mean volume (Bld) [Entitic vol] 9.1 fL 7.4 - 12.4 fL [facility] Platelets (Bld) [#/Vol] 308 10*3/uL 140 - 440 10*3/uL [facility] RBC (Bld) [#/Vol] 5.46 10*6/uL 4.40 - 5.9 0 10*6/uL [facility] WBC (Bld) [#/Vol] 7.9 10*3/uL 3.6 - 10.7 10*3/uL [facility] CT Head WO contraston 2022 [facility] RADIOLOGY [facility] RADIOLOG[facility] Radiology Study observation (narrative) [facility] CT Head WO contrastOrdered B y: Cayden Sorin on 02-13-2023 [facility] Work Phone: Comprehensive metabolic 1998 panelon 02-13-2023 Albumin [Mass/Vol] 3.5 g/dL 3.5 - 5.0 g/dL [facility] ALP [Catalytic activity/Vol] 84 U/L 38 - 126 U/L [facility] ALT [Catalytic activity/Vol] 96 U/L High 0 - 49 U/L [facility] Anion gap [Moles/Vol] 8 mmol/L 3 - 13 mmol/L [facility] AST [Catalytic activity/Vol] 72 U/L High 15 - 46 U/L [facility] Bilirubin [Mass/Vol] 1.0 mg/dL 0.2 - 1 .3 mg/dL [facility] Calcium [Mass/Vol] 9.3 mg/dL 8.4 - 10. 4 mg/dL [facility] Chloride [Moles/Vol] 114 mmol/L High 98 - 10 7 mmol/L [facility] CO2 [Moles/Vol] 28 mmol/L 22 - 30 mmol/L [facility] Creatinine [Mass/Vol] 0.95 mg/dL 0.66 - 1.25 mg/dL [facility] GFR/1.73 sq M.predicted MDRD (S/P/Bld) [Vol rate/Area] 87.7 mL/min/{1.73_m2} - PINF [facility] th Glucose [Mass/Vol] 137 mg/dL High 70 - 100 mg/dL [facility] Interpretation and review of laboratory results Abnormal [facility] Potassium [Moles/Vol] 3.8 mmol/L 3.5 - 5.1 mmol/L [facility] Protein [Mass/Vol] 6.1 g/dL Low 6.3 - 8.2 g/dL [facility] Sodium [Moles/Vol] 150 mmol/L High 135 - 145 mmol/L [facility] Urea nitrogen [Mass/Vol] 40 mg/dL High 9 - 20 mg/dL [facility] Hepatic function 2000 panelo n 02-13-2023 Albumin [Mass/Vol] 3.6 g/dL 3.5 - 5.0 g/dL [facility] ALP [Catalytic activity/Vol] 94 U/L 38 - 126 U/L [facility] [facility] ALT [Catalytic activity/Vol] 98 U/L High 0 - 49 U/L [facility] AST [Catalytic activity/Vol] 69 U/L High 15 - 46 U/L [facility] Bilirubin [Mass/Vol] 0.9 mg/dL 0.2 - 1 .3 mg/dL [facility] Bilirubin.conjugated [Mass/Vol] 0.0 mg/dL 0.0 - 0.3 mg/dL [facility] Protein [Mass/Vol] 6.2 g/dL Low 6.3 - 8.2 g/dL [facility] Laboratory - Chemistry and C hemistry - challengeon 02-13-2023 Sodium [Moles/Vol] 151 mmol/L High 135 - 145 mmol/L [facility] Sodium [Moles/Vol] 150 mmol/L High 135 - 145 mmol/L [facility] No Panel Informationon 02-13 Interpretation and review of laboratory results Abnormal [facility] Interpretation and review of laboratory results Abnormal [facility] CV CPACS No Panel InformationOrdered By: Shwetha Ochoa on 02-13-2023 Interpretation and review of laboratory results Abnormal [facility] OSMOLALITY, SERUM 331 High [facility] No Panel InformationOrdered By: Dipak Jeffrey on 02-13-2023 Interpretation and review of laboratory results Abnormal [facility] OSMOLALITY, SERUM 328 High [facility] No Panel InformationOrdered By: Andrew Quick on 02-13-2023 Interpretation and review of laboratory results Abnormal [facility] OSMOLALITY, SERUM 326 High [facility] CBC panel Auto (Bld)on 02-12 Erythrocyte distribution width (RBC) [Ratio] 14.4 % 11.5 - 14.5 % [facility] Hematocrit (Bld) [Volume fraction] 45.0 % 40.0 - 52.0 % [facility] Hemoglobin (Bld) [Mass/Vol] 15.4 g/dL 13.0 - 18.0 g/dL [facility] Interpretation and review of laboratory results Normal [facility] MCH (RBC) [Entitic mass] 30.3 pg 26. 0 - 34.0 pg [facility] MCHC (RBC) [Mass/Vol] 34.2 % 32.0 - 36.0 % [facility] MCV (RBC) [Entitic vol] 88.7 fL 80.0 - 98.0 fL [facility] Platelet mean volume (Bld) [Entitic vol] 8.8 fL 7.4 - 12.4 fL [facility] Platelets (Bld) [#/Vol] 258 10*3/uL 140 - 440 10*3/uL [facility] RBC (Bld) [#/Vol] 5.08 10*6/uL 4.40 - 5.9 0 10*6/uL [facility] WBC (Bld) [#/Vol] 7.1 10*3/uL 3.6 - 10.7 10*3/uL [facility] CT Head WO contraston 2022 [facility] RADIOLOGY [facility] RADIOLOGY [facility] Radiology Study observation (narrative) [facility] CT Head WO contrastOrdered B y: Alfreda Thacker on 02-12-2023 [facility] Work Phone: Comprehensive metabolic 1998 panelon 02-12-2023 Albumin [Mass/Vol] 3.2 g/dL Low 3.5 - 5.0 g/dL [facility] ALP [Catalytic activity/Vol] 75 U/L 38 - 126 U/L [facility] ALT [Catalytic activity/Vol] 62 U/L High 0 - 49 U/L [facility] Anion gap [Moles/Vol] 4 mmol/L 3 - 13 mmol/L [facility] AST [Catalytic activity/Vol] 78 U/L High 15 - 46 U/L [facility] Bilirubin [Mass/Vol] 1.1 mg/dL 0.2 - 1 .3 mg/dL [facility] Calcium [Mass/Vol] 8.6 mg/dL 8.4 - 10. 4 mg/dL [facility] Chloride [Moles/Vol] 113 mmol/L High 98 - 10 7 mmol/L [facility] CO2 [Moles/Vol] 28 mmol/L 22 - 30 mmol/L [facility] Creatinine [Mass/Vol] 0.84 mg/dL 0.66 - 1.25 mg/dL [facility] GFR/1.73 sq M.predicted MDRD (S/P/Bld) [Vol rate/Area] - PINF [facility] Glucose [Mass/Vol] 89 mg/dL 70 - 100 mg/dL [facility] Interpretation and review of laboratory results Abnormal [facility] Potassium [Moles/Vol] 4.0 mmol/L 3.5 - 5.1 mmol/L [facility] Protein [Mass/Vol] 5.9 g/dL Low 6.3 - 8.2 g/dL [facility] Sodium [Moles/Vol] 144 mmol/L 135 - 145 mmol/L [facility] Urea nitrogen [Mass/Vol] 25 mg/dL High 9 - 20 mg/dL [facility] Laboratory - Chemistry and C hemistry - challengeon 02-12-2023 Sodium [Moles/Vol] 149 mmol/L High 135 - 145 mmol/L [facility] Sodium [Moles/Vol] 148 mmol/L High 135 - 145 mmol/L [facility] No Panel Informationon 02-12 Interpretation and review of laboratory results Abnormal [facility] Interpretation and review of laboratory results Abnormal [facility] OSMOLALITY, SERUM 318 High [facility] Interpretation and review of laboratory results Abnormal [facility] Interpretation and review of laboratory results Abnormal [facility] OSMOLALITY, SERUM 320 High [facility] No Panel InformationOrdered By: Laverne Nieto on 02-12-2023 Interpretation and review of laboratory results Abnormal [facility] OSMOLALITY, SERUM 320 High [facility] CBC panel Auto (Bld)on 02-11 Erythrocyte distribution width (RBC) [Ratio] 14.6 % High 11.5 - 14.5 % [facility] Hematocrit (Bld) [Volume fraction] 48.2 % 40.0 - 52.0 % [facility] Hemoglobin (Bld) [Mass/Vol] 15.8 g/dL 13.0 - 18.0 g/dL [facility] Interpretation and review of laboratory results Abnormal [facility] MCH (RBC) [Entitic mass] 29.7 pg 26. 0 - 34.0 pg [facility] MCHC (RBC) [Mass/Vol] 32.7 % 32.0 - 36.0 % [facility] MCV (RBC) [Entitic vol] 90.9 fL 80.0 - 98.0 fL [facility] Platelet mean volume (Bld) [Entitic vol] 8.6 fL 7.4 - 12.4 fL [facility] Platelets (Bld) [#/Vol] 253 10*3/uL 140 - 440 10*3/uL [facility] RBC (Bld) [#/Vol] 5.31 10*6/uL 4.40 - 5.9 0 10*6/uL [facility] WBC (Bld) [#/Vol] 8.4 10*3/uL 3.6 - 10.7 10*3/uL [facility] Comprehensive metabolic 1998 panelon 02-11-2023 Albumin [Mass/Vol] 3.3 g/dL Low 3.5 - 5.0 g/dL [facility] ALP [Catalytic activity/Vol] 72 U/L 38 - 126 U/L [facility] ALT [Catalytic activity/Vol] 28 U/L 0 - 49 U/L [facility] Anion gap [Moles/Vol] 4 mmol/L 3 - 13 mmol/L [facility] AST [Catalytic activity/Vol] 42 U/L 15 - 46 U/L [facility] Bilirubin [Mass/Vol] 0.9 mg/dL 0.2 - 1 .3 mg/dL [facility] Calcium [Mass/Vol] 8.5 mg/dL 8.4 - 10. 4 mg/dL [facility] Chloride [Moles/Vol] 111 mmol/L High 98 - 10 7 mmol/L [facility] CO2 [Moles/Vol] 29 mmol/L 22 - 30 mmol/L [facility] Creatinine [Mass/Vol] 0.94 mg/dL 0.66 - 1.25 mg/dL [facility] GFR/1.73 sq M.predicted MDRD (S/P/Bld) [Vol rate/Area] 88.9 mL/min/{1.73_m2} - PINF [facility] th Glucose [Mass/Vol] 141 mg/dL High 70 - 100 mg/dL [facility] Interpretation and review of laboratory results Abnormal [facility] Potassium [Moles/Vol] 3.3 mmol/L Low 3.5 - 5.1 mmol/L [facility] Protein [Mass/Vol] 6.0 g/dL Low 6.3 - 8.2 g/dL [facility] Sodium [Moles/Vol] 145 mmol/L 135 - 145 mmol/L [facility] Urea nitrogen [Mass/Vol] 31 mg/dL High 9 - 20 mg/dL [facility] Laboratory - Chemistry and C hemistry - challengeon 02-11-2023 Sodium [Moles/Vol] 147 mmol/L High 135 - 145 mmol/L [facility] Sodium [Moles/Vol] 147 mmol/L High 135 - 145 mmol/L [facility] Magnesium [Mass/Vol] 2.3 mg/dL 1.6 - 2 .3 mg/dL [facility] Magnesium [Mass/Vol]on 02-11 Interpretation and review of laboratory results Normal [facility] No Panel Informationon 02-11 Interpretation and review of laboratory results Abnormal [facility] Interpretation and review of laboratory results Abnormal [facility] No Panel InformationOrdered By: Radha Sahu on 02-11-2023 Interpretation and review of laboratory results Abnormal [facility] OSMOLALITY, SERUM 316 High [facility]alth [facility] CBC panel Auto (Bld)Ordered By: Geoff Vera on 02-10-2023 Erythrocyte distribution width (RBC) [Ratio] 14.6 % High 11.5 - 14.5 % [facility] Hematocrit (Bld) [Volume fraction] 45.2 % 40.0 - 52.0 % [facility] Hemoglobin (Bld) [Mass/Vol] 15.2 g/dL 13.0 - 18.0 g/dL [facility] Interpretation and review of laboratory results Abnormal [facility] MCH (RBC) [Entitic mass] 30.0 pg 26. 0 - 34.0 pg [facility] MCHC (RBC) [Mass/Vol] 33.6 % 32.0 - 36.0 % [facility] MCV (RBC) [Entitic vol] 89.3 fL 80.0 - 98.0 fL [facility] Platelet mean volume (Bld) [Entitic vol] 9.1 fL 7.4 - 12.4 fL [facility] Platelets (Bld) [#/Vol] 249 10*3/uL 140 - 440 10*3/uL [facility] RBC (Bld) [#/Vol] 5.07 10*6/uL 4.40 - 5.9 0 10*6/uL [facility] WBC (Bld) [#/Vol] 8.3 10*3/uL 3.6 - 10.7 10*3/uL [facility] Comprehensive metabolic 1998 panelon 02-10-2023 Albumin [Mass/Vol] 3.4 g/dL Low 3.5 - 5.0 g/dL [facility] ALP [Catalytic activity/Vol] 69 U/L 38 - 126 U/L [facility] ALT [Catalytic activity/Vol] 19 U/L 0 - 49 U/L [facility] Anion gap [Moles/Vol] 7 mmol/L 3 - 13 mmol/L [facility] AST [Catalytic activity/Vol] 33 U/L 15 - 46 U/L [facility] Bilirubin [Mass/Vol] 1.1 mg/dL 0.2 - 1 .3 mg/dL [facility] Calcium [Mass/Vol] 8.5 mg/dL 8.4 - 10. 4 mg/dL [facility] Chloride [Moles/Vol] 116 mmol/L High 98 - 10 7 mmol/L [facility] CO2 [Moles/Vol] 28 mmol/L 22 - 30 mmol/L [facility] Creatinine [Mass/Vol] 1.00 mg/dL 0.66 - 1.25 mg/dL [facility] GFR/1.73 sq M.predicted MDRD (S/P/Bld) [Vol rate/Area] 82.5 mL/min/{1.73_m2} - PINF [facility] th Glucose [Mass/Vol] 110 mg/dL High 70 - 100 mg/dL [facility] Interpretation and review of laboratory results Abnormal [facility] Potassium [Moles/Vol] 3.3 mmol/L Low 3.5 - 5.1 mmol/L [facility] Protein [Mass/Vol] 6.1 g/dL Low 6.3 - 8.2 g/dL [facility] Sodium [Moles/Vol] 151 mmol/L High 135 - 145 mmol/L [facility] Urea nitrogen [Mass/Vol] 31 mg/dL High 9 - 20 mg/dL [facility] Laboratory - Chemistry and C hemistry - challengeon 02-10-2023 Sodium [Moles/Vol] 145 mmol/L 135 - 145 mmol/L [facility] Sodium [Moles/Vol] 148 mmol/L High 135 - 145 mmol/L [facility] Magnesium [Mass/Vol] 2.4 mg/dL High 1.6 - 2 .3 mg/dL [facility] Sodium [Moles/Vol] 150 mmol/L High 135 - 145 mmol/L [facility] MR Brain WO contraston 02-10 [facility] Radiology Study observation (narrative) [facility] Magnesium [Mass/Vol]on 02-10 Interpretation and review of laboratory results Abnormal [facility] No Panel Informationon 02-10 Interpretation and review of laboratory results Normal [facility] Interpretation and review of laboratory results Abnormal [facility] Interpretation and review of laboratory results Abnormal [facility] XR Abdomen Single viewon Moderate gaseous distention of small bowel, likely reflecting ileus. Follow-up imaging recommended. Report Dictated on Electronically Signed By: Gomez Welch Electronically Signed Date/Time: 02/10/2023 2:38 PM EDT [facility] Patient Name: CATINA LAND : 1955 Exam Date/Time: 02/10/2023 13:04 Procedure: XR ABDOMEN 1 VIEW Ordering Provider: HARMAN LISA Reason For Exam: PROCEDURES ABDOMEN, Single View: INDICATION: NG tube placement COMPARISON: None. A single supine view of the abdomen was obtained at 1303 hours. There is moderate gaseous distention of the small bowel. There are no obvious findings to suggest pneumoperitoneum. Atherosclerotic calcifications of the aorta and iliac arteries are noted. There is no appreciable mass effect. Review of the osseous structures arthritic changes of the spine. [facility] Gomez Welch, DO - 02/10/2023 Patient Name: CATINA LAND : 1955 Exam Date/Time: 02/10/2023 13:04 Procedure: XR ABDOMEN 1 VIEW Ordering Provider: HARMAN LISA Reason For Exam: PROCEDURES ABDOMEN, Single View: INDICATION: NG tube placement COMPARISON: None. A single supine view of the abdomen was obtained at 1303 hours. There is moderate gaseous distention of the small bowel. There are no obvious findings to suggest pneumoperitoneum. Atherosclerotic calcifications of the aorta and iliac arteries are noted. There is no appreciable mass effect. Review of the osseous structures arthritic changes of the spine. IMPRESSION: Moderate gaseous distention of small bowel, likely reflecting ileus. Follow-up imaging recommended. Report Dictated on Electronically Signed By: Gomez Welch Electronically Signed Date/Time: 02/10/2023 2:38 PM EDT [facility] Radiology Study observation (narrative) [facility] Nonspecific bowel ga s pattern. The Dobbhoff tube overlies the left upper quadrant near the GE junction. Report Dictated on Electronically Signed By: Gomez Welch Electronically Signed Date/Time: 02/10/2023 9:20 AM EDT [facility] Patient Name: CATINA LAND : 1955 Exam Date/Time: 02/10/2023 07:17 Procedure: XR ABDOMEN 1 VIEW Ordering Provider: GARCIA MATTHEW Reason For Exam: Check Doboff placement ABDOMEN, Single View: INDICATION: Dobbhoff placement COMPARISON: 02/09/2023 Supine images of the abdomen were obtained at 0716 hours. The bowel gas pattern is nonspecific and nonobstructive. There are no obvious findings to suggest pneumoperitoneum. The Dobbhoff tube is present with the tip overlying the left upper quadrant near the GE junction. There is no appreciable mass effect. Review of the osseous structures demonstrates arthritic changes of the spine. [facility] Gomez Welch, - 02/10/2023 [facility] 1955 [id number] Exam Date/Time: 02/10/2023 07:17 Procedure: XR ABDOMEN 1 VIEW Ordering Provider: GARCIA MATTHEW Reason For Exam: Check Doboff placement ABDOMEN, Single View: INDICATION: Dobbhoff placement COMPARISON: 02/09/2023 Supine images of the abdomen were obtained at 0716 hours. The bowel gas pattern is nonspecific and nonobstructive. There are no obvious findings to suggest pneumoperitoneum. The Dobbhoff tube is present with the tip overlying the left upper quadrant near the GE junction. There is no appreciable mass effect. Review of the osseous structures demonstrates arthritic changes of the spine. IMPRESSION: Nonspecific bowel gas pattern. The Dobbhoff tube overlies the left upper quadrant near the GE junction. Report Dictated on Electronically Signed By: Gomez Welch Electronically Signed Date/Time: 02/10/2023 9:20 AM EDT [facility] RADIOLOGY SYSTEM [facility] RADIOLOGY SYSTEM [facility] Radiology Study observation (narrative) [facility] XR Abdomen Single viewOrdere d By: Gomez Welch on 02-10-2023 [facility] [employer] Work Phone: [facility] [employer] Work Phone: Basic metabolic 1998 panelon 02-09-2023 Anion gap [Moles/Vol] 7 mmol/L 3 - 13 mmol/L [facility] Calcium [Mass/Vol] 8.3 mg/dL Low 8.4 - 10. 4 mg/dL [facility] Chloride [Moles/Vol] 116 mmol/L High 98 - 10 7 mmol/L [facility] CO2 [Moles/Vol] 26 mmol/L 22 - 30 mmol/L [facility] Creatinine [Mass/Vol] 0.93 mg/dL 0.66 - 1.25 mg/dL [facility] GFR/1.73 sq M.predicted MDRD (S/P/Bld) [Vol rate/Area] 90.0 mL/min/{1.73_m2} - PINF [facility] Glucose [Mass/Vol] 109 mg/dL High 70 - 100 mg/dL [facility] Interpretation and review of laboratory results Abnormal [facility] Potassium [Moles/Vol] 3.6 mmol/L 3.5 - 5.1 mmol/L [facility] Sodium [Moles/Vol] 148 mmol/L High 135 - 145 mmol/L [facility] Urea nitrogen [Mass/Vol] 22 mg/dL High 9 - 20 mg/dL [facility] CBC panel Auto (Bld)on 02-09 Erythrocyte distribution width (RBC) [Ratio] 15.0 % High 11.5 - 14.5 % [facility] Hematocrit (Bld) [Volume fraction] 43.6 % 40.0 - 52.0 % [facility] Hemoglobin (Bld) [Mass/Vol] 14.9 g/dL 13.0 - 18.0 g/dL [facility] Interpretation and review of laboratory results Abnormal [facility] MCH (RBC) [Entitic mass] 30.2 pg 26. 0 - 34.0 pg [facility] MCHC (RBC) [Mass/Vol] 34.1 % 32.0 - 36.0 % [facility] MCV (RBC) [Entitic vol] 88.6 fL 80.0 - 98.0 fL [facility] Platelet mean volume (Bld) [Entitic vol] 8.6 fL 7.4 - 12.4 fL [facility] Platelets (Bld) [#/Vol] 247 10*3/uL 140 - 440 10*3/uL [facility] RBC (Bld) [#/Vol] 4.92 10*6/uL 4.40 - 5.9 0 10*6/uL [facility] WBC (Bld) [#/Vol] 9.1 10*3/uL 3.6 - 10.7 10*3/uL [facility] Comprehensive metabolic 1998 panelon 02-09-2023 Albumin [Mass/Vol] 3.4 g/dL Low 3.5 - 5.0 g/dL [facility] ALP [Catalytic activity/Vol] 66 U/L 38 - 126 U/L [facility] ALT [Catalytic activity/Vol] 18 U/L 0 - 49 U/L [facility] Anion gap [Moles/Vol] 4 mmol/L 3 - 13 mmol/L [facility] AST [Catalytic activity/Vol] 28 U/L 15 - 46 U/L [facility] Bilirubin [Mass/Vol] 1.2 mg/dL 0.2 - 1 .3 mg/dL [facility] Calcium [Mass/Vol] 8.4 mg/dL 8.4 - 10. 4 mg/dL [facility] Chloride [Moles/Vol] 118 mmol/L High 98 - 10 7 mmol/L [facility] CO2 [Moles/Vol] 31 mmol/L High 22 - 30 mmol/L [facility] Creatinine [Mass/Vol] 1.06 mg/dL 0.66 - 1.25 mg/dL [facility] GFR/1.73 sq M.predicted MDRD (S/P/Bld) [Vol rate/Area] 76.9 mL/min/{1.73_m2} - PINF [facility] th Glucose [Mass/Vol] 91 mg/dL 70 - 100 mg/dL [facility] Interpretation and review of laboratory results Abnormal [facility] Potassium [Moles/Vol] 3.1 mmol/L Low 3.5 - 5.1 mmol/L [facility] Protein [Mass/Vol] 6.1 g/dL Low 6.3 - 8.2 g/dL [facility] Sodium [Moles/Vol] 154 mmol/L High 135 - 145 mmol/L [facility] Urea nitrogen [Mass/Vol] 22 mg/dL High 9 - 20 mg/dL [facility] Laboratory - Chemistry and C hemistry - challengeon 02-09-2023 Magnesium [Mass/Vol] 2.2 mg/dL 1.6 - 2 .3 mg/dL [facility] Sodium [Moles/Vol] 149 mmol/L High 135 - 145 mmol/L [facility] Magnesium [Mass/Vol] 2.2 mg/dL 1.6 - 2 .3 mg/dL [facility] Magnesium [Mass/Vol]on 02-09 Interpretation and review of laboratory results Normal [facility] Interpretation and review of laboratory results Normal [facility] No Panel Informationon 02-09 [facility] Interpretation and review of laboratory results Abnormal [facility] Phosphate [Moles/Vol]on Interpretation and review of laboratory results Normal [facility] Phosphate [Mass/Vol] 3.5 mg/dL 2.5 - 4 .5 mg/dL [facility] US Heart Transesophagealon 0 02-09-2023 Aortic Sinus Valsalva 3.1 cm [facility] Aortic Sinus Valsalva Index 1.71 cm/m2 [facility] Ascending Aorta 3.3 cm [facility] Ascending Aorta Index 1.82 cm/m2 [facility] Sinotubular Junction 2.4 cm [facility][note 3] XR Abdomen Single viewon Impression: 1. Dobbhoff feeding tube replacement as described. 2. Nonspecific bowel gas pattern without evidence of obstruction. Report Dictated on Electronically Signed By: Albin Dave Electronically Signed Date/Time: 02/09/2023 2:44 PM EDT [facility] Patient Name: CATINA LAND : 1955 Exam Date/Time: 02/09/2023 13:22 Procedure: XR ABDOMEN 1 VIEW Ordering Provider: WHALEY DAVID Reason For Exam: feeding tube placement Clinical Information: Dobbhoff feeding tube placement for feeding. Abdomen, single view, KUB, portable, 1318: A single portable AP supine view of the abdomen which does not include the extreme right abdomen is compared to the examination of earlier today at 1236 hours. The Dobbhoff feeding tube has been replaced with a new feeding tube which initially extends into the right side of the upper abdomen and then into the left side of the mid to upper abdomen with the tip on the left consistent with location in the proximal stomach. There is a nonspecific bowel gas pattern. Gas is seen within nondistended loops of large and small bowel. There is no obvious free intraperitoneal gas on limited evaluation. [facility] Albin Dave MD - 02/09/2023 Patient Name: CATINA LAND : 1955 Exam Date/Time: 02/09/2023 13:22 Procedure: XR ABDOMEN 1 VIEW Ordering Provider: WHALEY DAVID Reason For Exam: feeding tube placement Clinical Information: Dobbhoff feeding tube placement for feeding. Abdomen, single view, KUB, portable, 1318: A single portable AP supine view of the abdomen which does not include the extreme right abdomen is compared to the examination of earlier today at 1236 hours. The Dobbhoff feeding tube has been replaced with a new feeding tube which initially extends into the right side of the upper abdomen and then into the left side of the mid to upper abdomen with the tip on the left consistent with location in the proximal stomach. There is a nonspecific bowel gas pattern. Gas is seen within nondistended loops of large and small bowel. There is no obvious free intraperitoneal gas on limited evaluation. IMPRESSION: Impression: 1. Dobbhoff feeding tube replacement as described. 2. Nonspecific bowel gas pattern without evidence of obstruction. Report Dictated on Electronically Signed By: Albin Dave Electronically Signed Date/Time: 02/09/2023 2:44 PM EDT [facility] SYSTEM [facility] RADIOLOGY SYSTEM [facility] Radiology Study observation (narrative) [facility] Impression: 1. Nonspecific bowel gas pattern without evidence of obstruction. 2. No other significant radiographic abnormality. 3. No metallic or electronic implants are identified to contraindicate MRI. Report Dictated on Electronically Signed By: Albin Dave Electronically Signed Date/Time: 02/09/2023 1:01 PM EDT [facility] Patient Name: CATINA LAND : 1955 Exam Date/Time: 02/09/2023 12:38 Procedure: XR ABDOMEN 1 VIEW Ordering Provider: EDDY JESSICA Reason For Exam: MRI clearance Clinical Information: Patient unable to provide adequate history. MRI clearance. Abdomen, single view, KUB, portable, 1236: A single portable AP supine view of the abdomen which does not include the extreme right abdomen demonstrates the distal end of a Dobbhoff feeding tube is projected on the right side of the upper abdomen consistent with location in the distal stomach. There is a nonspecific bowel gas pattern. Gas is seen within nondistended loops of large and small bowel. There is no obvious free intraperitoneal gas on limited evaluation. No suspect calcification, organomegaly or soft tissue mass is seen. There is atherosclerotic calcification of the abdominal aorta extending into the common iliac arteries. No metallic or electronic implants are identified. [facility] Albin Dave MD - 02/09/2023 [facility]: [facility]AND : 1955 [id number] Exam Date/Time: 02/09/2023 12:38 Procedure: XR ABDOMEN 1 VIEW Ordering Provider: EDDY JESSICA Reason For Exam: MRI clearance Clinical Information: Patient unable to provide adequate history. MRI clearance. Abdomen, single view, KUB, portable, 1236: A single portable AP supine view of the abdomen which does not include the extreme right abdomen demonstrates the distal end of a Dobbhoff feeding tube is projected on the right side of the upper abdomen consistent with location in the distal stomach. There is a nonspecific bowel gas pattern. Gas is seen within nondistended loops of large and small bowel. There is no obvious free intraperitoneal gas on limited evaluation. No suspect calcification, organomegaly or soft tissue mass is seen. There is atherosclerotic calcification of the abdominal aorta extending into the common iliac arteries. No metallic or electronic implants are identified. IMPRESSION: Impression: 1. Nonspecific bowel gas pattern without evidence of obstruction. 2. No other significant radiographic abnormality. 3. No metallic or electronic implants are identified to contraindicate MRI. Report Dictated on Electronically Signed By: Albin Dave Electronically Signed Date/Time: 02/09/2023 1:01 PM EDT Formerly [facility] RADIOLOGY SYSTEM [facility] Radiology Study observation (narrative) [facility] julian XR Abdomen Single viewOrdere d By: Albin Dave on 02-09-2023 [facility] [employer] Work Phone: [facility] [employer] Phone: XR Chest Single viewon 02-09 FINDINGS AND IMPRESSION: SUPPORT DEVICES: An enteric tube is present with its distal tip below the hemidiaphragm but excluded from the [id number]. OSSEOUS STRUCTURES: Degenerative changes in the thoracic spine. HEART AND MEDIASTINUM: The cardiomediastinal silhouette appears unchanged from the prior exam, including prior median sternotomy. LUNGS AND PLEURA: There is pulmonary venous congestion, but without jeffry pulmonary edema. No consolidation. No sizable pleural effusion. Report Dictated on Electronically Signed By: Lew Fernandez Electronically Signed Date/Time: 02/09/2023 4:07 PM EDT [facility] Patient Name: CATINA LAND : 1955 Exam Date/Time: 02/09/2023 15:29 Procedure: XR CHEST 1 VIEW Ordering Provider: RANDALL SHANNON Reason For Exam: hypoxia CHEST CLINICAL INDICATION: Hypoxia TECHNIQUE: AP portable chest COMPARISON: 02/05/2023 [facility] Lew Fernandez MD - 02/09/2023 Patient Name: CATINA LAND : 1955 Exam Date/Time: 02/09/2023 15:29 Procedure: XR CHEST 1 VIEW Ordering Provider: RANDALL SHANNON Reason For Exam: hypoxia CHEST CLINICAL INDICATION: Hypoxia TECHNIQUE: AP portable chest COMPARISON: 02/05/2023 IMPRESSION: FINDINGS AND IMPRESSION: SUPPORT DEVICES: An enteric tube is present with its distal tip below the hemidiaphragm but excluded from the [id number]. OSSEOUS STRUCTURES: Degenerative changes in the thoracic spine. HEART AND MEDIASTINUM: The cardiomediastinal silhouette appears unchanged from the prior exam, including prior median sternotomy. LUNGS AND PLEURA: There is pulmonary venous congestion, but without jeffry pulmonary edema. No consolidation. No sizable pleural effusion. Report Dictated on Electronically Signed By: Lew Fernandez Electronically Signed Date/Time: 02/09/2023 4:07 PM EDT [facility] RADIOLOGY SYSTEM [facility] RADIOLOGY SYSTEM [facility] Radiology Study observation (narrative) [facility] XR Chest Single viewOrdered By: Lew Fernandez on 02-09-2023 [facility] [employer] Work Phone: CBC panel Auto (Bld)Ordered By: Emily Telles on 02-08-2023 Erythrocyte distribution width (RBC) [Ratio] 14.9 % High 11.5 - 14.5 % [facility] Hematocrit (Bld) [Volume fraction] 45.0 % 40.0 - 52.0 % [facility] Hemoglobin (Bld) [Mass/Vol] 15.1 g/dL 13.0 - 18.0 g/dL [facility] Interpretation and review of laboratory results Abnormal [facility] MCH (RBC) [Entitic mass] 30.1 pg 26. 0 - 34.0 pg [facility] MCHC (RBC) [Mass/Vol] 33.6 % 32.0 - 36.0 % [facility] MCV (RBC) [Entitic vol] 89.6 fL 80.0 - 98.0 fL [facility] Platelet mean volume (Bld) [Entitic vol] 8.5 fL 7.4 - 12.4 fL [facility] Platelets (Bld) [#/Vol] 232 10*3/uL 140 - 440 10*3/uL [facility] RBC (Bld) [#/Vol] 5.03 10*6/uL 4.40 - 5.9 0 10*6/uL [facility] WBC (Bld) [#/Vol] 8.3 10*3/uL 3.6 - 10.7 10*3/uL [facility] Comprehensive metabolic 1998 panelon 02-08-2023 Albumin [Mass/Vol] 3.6 g/dL 3.5 - 5.0 g/dL [facility] ALP [Catalytic activity/Vol] 66 U/L 38 - 126 U/L [facility] ALT [Catalytic activity/Vol] 18 U/L 0 - 49 U/L [facility] Anion gap [Moles/Vol] 8 mmol/L 3 - 13 mmol/L [facility] AST [Catalytic activity/Vol] 31 U/L 15 - 46 U/L [facility] Bilirubin [Mass/Vol] 1.0 mg/dL 0.2 - 1 .3 mg/dL [facility] Calcium [Mass/Vol] 8.4 mg/dL 8.4 - 10. 4 mg/dL [facility] Chloride [Moles/Vol] 127 mmol/L High 98 - 10 7 mmol/L [facility] CO2 [Moles/Vol] 23 mmol/L 22 - 30 mmol/L [facility] Creatinine [Mass/Vol] 0.86 mg/dL 0.66 - 1.25 mg/dL [facility] GFR/1.73 sq M.predicted MDRD (S/P/Bld) [Vol rate/Area] - PINF [facility] Glucose [Mass/Vol] 144 mg/dL High 70 - 100 mg/dL [facility] Interpretation and review of laboratory results Abnormal [facility] Potassium [Moles/Vol] 3.3 mmol/L Low 3.5 - 5.1 mmol/L [facility] Protein [Mass/Vol] 6.4 g/dL 6.3 - 8.2 g/dL [facility] Sodium [Moles/Vol] 157 mmol/L High 135 - 145 mmol/L [facility] Urea nitrogen [Mass/Vol] 18 mg/dL 9 - 20 mg/dL [facility] Laboratory - Chemistry and C hemistry - challengeon 02-08-2023 Sodium [Moles/Vol] 153 mmol/L High 135 - 145 mmol/L [facility] Magnesium [Mass/Vol] 2.2 mg/dL 1.6 - 2 .3 mg/dL [facility] Magnesium [Mass/Vol]on 02-08 Interpretation and review of laboratory results Normal [facility] No Panel Informationon 02-08 Interpretation and review of laboratory results Abnormal [facility] CBC panel Auto (Bld)Ordered By: Preston Bowling on 02-07-2023 Erythrocyte distribution width (RBC) [Ratio] 14.7 % High 11.5 - 14.5 % [facility] Hematocrit (Bld) [Volume fraction] 46.4 % 40.0 - 52.0 % [facility] Hemoglobin (Bld) [Mass/Vol] 15.5 g/dL 13.0 - 18.0 g/dL [facility] Interpretation and review of laboratory results Abnormal [facility] MCH (RBC) [Entitic mass] 30.2 pg 26. 0 - 34.0 pg [facility] MCHC (RBC) [Mass/Vol] 33.4 % 32.0 - 36.0 % [facility] MCV (RBC) [Entitic vol] 90.6 fL 80.0 - 98.0 fL [facility] Platelet mean volume (Bld) [Entitic vol] 8.4 fL 7.4 - 12.4 fL [facility] Platelets (Bld) [#/Vol] 232 10*3/uL 140 - 440 10*3/uL [facility] RBC (Bld) [#/Vol] 5.12 10*6/uL 4.40 - 5.9 0 10*6/uL [facility] WBC (Bld) [#/Vol] 10.2 10*3/uL 3.6 - 10.7 10*3/uL [facility] CT Head WO contraston 2022 [facility] Radiology Study observation (narrative) [facility] Comprehensive metabolic 1998 panelon 02-07-2023 Albumin [Mass/Vol] 3.8 g/dL 3.5 - 5.0 g/dL [facility] ALP [Catalytic activity/Vol] 63 U/L 38 - 126 U/L [facility] ALT [Catalytic activity/Vol] 19 U/L 0 - 49 U/L [facility] Anion gap [Moles/Vol] 8 mmol/L 3 - 13 mmol/L [facility] AST [Catalytic activity/Vol] 35 U/L 15 - 46 U/L [facility] Bilirubin [Mass/Vol] 1.5 mg/dL High 0.2 - 1 .3 mg/dL [facility] Calcium [Mass/Vol] 8.7 mg/dL 8.4 - 10. 4 mg/dL [facility] Chloride [Moles/Vol] 116 mmol/L High 98 - 10 7 mmol/L [facility] CO2 [Moles/Vol] 24 mmol/L 22 - 30 mmol/L [facility] Creatinine [Mass/Vol] 0.81 mg/dL 0.66 - 1.25 mg/dL [facility] GFR/1.73 sq M.predicted MDRD (S/P/Bld) [Vol rate/Area] - PINF [facility] Glucose [Mass/Vol] 120 mg/dL High 70 - 100 mg/dL [facility] Potassium [Moles/Vol] 3.7 mmol/L 3.5 - 5.1 mmol/L [facility] Protein [Mass/Vol] 6.6 g/dL 6.3 - 8.2 g/dL [facility] Sodium [Moles/Vol] 147 mmol/L High 135 - 145 mmol/L [facility] Urea nitrogen [Mass/Vol] 17 mg/dL 9 - 20 mg/dL [facility] [employer] Laboratory - Chemistry and C hemistry - challengeon 02-07-2023 Sodium [Moles/Vol] 154 mmol/L High 135 - 145 mmol/L [facility] [employer] Sodium [Moles/Vol] 152 mmol/L High 135 - 145 mmol/L [facility] [employer] Sodium [Moles/Vol] 151 mmol/L High 135 - 145 mmol/L [facility] [employer] CK [Catalytic activity/Vol] 284 U/L High 30 - 170 U/L [facility] No Panel Informationon 02-07 Interpretation and review of laboratory results Abnormal [facility] [employer] [facility] [employer] Interpretation and review of laboratory results Abnormal [facility] [employer] [facility] [employer] Interpretation and review of laboratory results Abnormal [facility] [employer] Interpretation and review of laboratory results Abnormal [facility] [employer] US Heart TransthoracicOrdere d By: Tye Boyer on 02-07-2023 A[facility] 1.77 [facility]: Aortic Root 3.2 cm [facility] [employer] Work Phone: [phone] Ascending Aorta 3.1 cm [facility] Work Phone: Ascending Aorta Index 1.71 cm/m2 [employer] [facility] [employer] Work Phone: E/E' Lateral 12.63 [facility] [employer] Work Phone: [phone] E/E' Ratio (Averaged) 13.53 [facility] [employer] Work Phone: [phone] E/E' Septal 14.43 [facility] [employer] Work Phone: EF BP 58 % 55 - 100 % [facility] [employer] Work Phone: [phone] Fractional Shortening 2D 33 % 28 - 44 % [facility] [employer] Work Phone: Interpretation and review of laboratory results Abnormal [facility] [employer] Work Phone: IVSd 1.0 cm 0.6 - 1.0 cm [facility] [employer] Work Phone: LA Volume 2C 57 mL 18 - 58 mL [facility] [employer] Work Phone: LA Volume 4C 56 mL 18 - 58 mL [facility] [employer] Work Phone: LA Volume A/L 63 mL [facility] Work Phone: LA Volume BP 59 mL Abnormal 18 - 58 mL [facility] Work Phone: LA Volume Index 2C 31 mL/m2 16 - 34 mL/m2 [facility] Work Phone: LA Volume Index 4C 31 mL/m2 16 - 34 mL/m2 [facility] Work Phone: LA Volume Index A/L 35 mL/m2 16 - 34 mL/m2 [facility] Work Phone: LA Volume Index BP 33 ml/m2 16 - 34 ml/m2 [facility] Work Phone: LV E' Lateral Velocity 8 cm/s [facility] Work Phone: LV E' Septal Velocity 7 cm/s [facility] Work Phone: LV EDV A2C 88 mL [facility] Work Phone: LV EDV A4C 72 mL [facility] Work Phone: LV EDV BP 81 mL 67 - 155 mL [facility] Work Phone: LV EDV Index A2C 49 mL/m2 [facility] Work Phone: LV EDV Index A4C 40 mL/m2 [facility] Work Phone: LV EDV Index BP 45 mL/m2 [facility] Work Phone: LV Ejection Fraction A2C 63 % [facility] Work Phone: LV Ejection Fraction A4C 53 % [facility] Work Phone: LV ESV A2C 33 mL [facility] Work Phone: LV ESV A4C 34 mL [facility] Work Phone: LV ESV BP 34 mL 22 - 58 mL [facility] Work Phone: LV ESV Index A2C 18 mL/m2 [facility] Work Phone: LV ESV Index A4C 19 mL/m2 [facility] Work Phone: LV ESV Index BP 19 mL/m2 [facility] Work Phone: [phone] LV Mass 2D 137.2 g 88 - 224 g [facility] [employer] Work Phone: [phone] LV Mass 2D Index 75.8 g/m2 49 - 115 g/m2 [facility] [employer] Work Phone: [phone] LV RWT Ratio 0.48 [facility] [employer] Work Phone: [phone] LVIDd 4.2 cm 4.2 - 5.9 cm [facility] [employer] Work Phone: [phone] LVIDd Index 2.32 cm/m2 [facility] [employer] Work Phone: [phone] LVIDs 2.8 cm [facility] [employer] Work Phone: [phone] LVIDs Index 1.55 cm/m2 [facility] [employer] Work Phone: [phone] LVOT Area 2.8 cm2 [facility] [employer] Work Phone: [phone] LVOT Cardiac Output 3.6 liter/mi nut e [facility] [employer] Work Phone: [phone] LVOT Diameter 1.9 cm [facility] [employer] Work Phone: [phone] LVOT Mean Gradient 1 mmHg [facility] [employer] Work Phone: [phone] LVOT Peak Gradient 2 mmHg [facility] [employer] Work Phone: [phone] LVOT Peak Velocity 0.8 m/s [facility] [employer] Phone: [phone] LVOT Stroke Volume Index 23.5 mL/m2 [facility] [employer] Work Phone: [phone] LVOT SV 42.5 ml [facility] [employer] Work Phone: [phone] LVOT VTI 15.0 cm [facility] [employer] Work Phone: [phone] LVPWd 1.0 cm 0.6 - 1.0 cm [facility] [employer] Work Phone: [phone] MV A Velocity 0.95 m/s [facility] [employer] Work Phone: [phone] MV E Velocity 1.01 m/s [facility] Work Phone: [phone] MV E Wave Deceleration Time 146.5 ms [employer] Work Phone: MV E/A 1.06 [employer] Work Phone: Pulmonary Artery EDP 14 mmHg [facility] [employer] Work Phone: RA Area 4C 20.9 mL [employer] Work Phone: RA Area 4C 20.5 mL [employer] Work Phone: RV Free Wall Peak S' 10 cm/s [facility] [employer] Work Phone: TAPSE 1.8 cm 1.7 cm [employer] Work Phone: [employer] Work Phone: US Heart Transthoracicon [employer] CBC panel Auto (Bld)Ordered By: Alexus Gallardo on 02-06-2023 Erythrocyte distribution width (RBC) [Ratio] 14.6 % High 11.5 - 14.5 % [employer] Hematocrit (Bld) [Volume fraction] 45.7 % 40.0 - 52.0 % [employer] Hemoglobin (Bld) [Mass/Vol] 15.4 g/dL 13.0 - 18.0 g/dL [employer] Interpretation and review of laboratory results Abnormal [employer] MCH (RBC) [Entitic mass] 29.9 pg 26. 0 - 34.0 pg [employer] MCHC (RBC) [Mass/Vol] 33.8 % 32.0 - 36.0 % [employer] MCV (RBC) [Entitic vol] 88.6 fL 80.0 - 98.0 fL [employer] Platelet mean volume (Bld) [Entitic vol] 8.3 fL 7.4 - 12.4 fL [employer] Platelets (Bld) [#/Vol] 244 10*3/uL 140 - 440 10*3/uL [employer] RBC (Bld) [#/Vol] 5.16 10*6/uL 4.40 - 5.9 0 10*6/uL [employer] WBC (Bld) [#/Vol] 9.9 10*3/uL 3.6 - 10.7 10*3/uL [facility] [employer] CK [Catalytic activity/Vol]o n 02-06-2023 Interpretation and review of laboratory results Abnormal [facility] CT Head WO contraston 2022 [facility] RADIOLOGY SYSTEM [facility] RADIOLOGY [facility] Radiology Study observation (narrative) [facility] julian CT Head WO contrastOrdered B y: Kelsey Castillo on 02-06-2023 [facility] Work Phone: Comprehensive metabolic 1998 panelon 02-06-2023 Albumin [Mass/Vol] 3.5 g/dL 3.5 - 5.0 g/dL [facility] ALP [Catalytic activity/Vol] 64 U/L 38 - 126 U/L [facility] ALT [Catalytic activity/Vol] 22 U/L 0 - 49 U/L [facility] Anion gap [Moles/Vol] 4 mmol/L 3 - 13 mmol/L [facility] AST [Catalytic activity/Vol] 54 U/L High 15 - 46 U/L [facility] Bilirubin [Mass/Vol] 1.1 mg/dL 0.2 - 1 .3 mg/dL [facility] Calcium [Mass/Vol] 8.4 mg/dL 8.4 - 10. 4 mg/dL [facility] Chloride [Moles/Vol] 112 mmol/L High 98 - 10 7 mmol/L [facility] CO2 [Moles/Vol] 27 mmol/L 22 - 30 mmol/L [facility] Creatinine [Mass/Vol] 0.83 mg/dL 0.66 - 1.25 mg/dL [facility] GFR/1.73 sq M.predicted MDRD (S/P/Bld) [Vol rate/Area] - PINF [facility] Glucose [Mass/Vol] 109 mg/dL High 70 - 100 mg/dL [facility] Interpretation and review of laboratory results Abnormal [facility] Potassium [Moles/Vol] 4.1 mmol/L 3.5 - 5.1 mmol/L [facility] Protein [Mass/Vol] 6.2 g/dL Low 6.3 - 8.2 g/dL [facility] Sodium [Moles/Vol] 143 mmol/L 135 - 145 mmol/L [facility] Urea nitrogen [Mass/Vol] 20 mg/dL 9 - 20 mg/dL [facility] HbA1c (Bld) [Mass fraction]o n 02-06-2023 Glucose [Mass/Vol] 91 mg/dL [facility] HbA1c (Bld) [Mass/Vol] 4.8 % NINF - 5.7 % [facility] Laboratory - Chemistry and C hemistry - challengeon 02-06-2023 Sodium [Moles/Vol] 147 mmol/L High 135 - 145 mmol/L [facility] Sodium [Moles/Vol] 147 mmol/L High 135 - 145 mmol/L [facility] CK [Catalytic activity/Vol] 434 U/L High 30 - 170 U/L [facility] Sodium [Moles/Vol] 144 mmol/L 135 - 145 mmol/L [facility] Laboratory - Chemistry and C hemistry - challengeOrdered By: Francisco Fontanez on 02-06-2023 Troponin I.cardiac [Mass/Vol] 5.420 ng/mL Critically high 0.000 - 0.034 ng/mL [facility] Lipid 1996 panelon 3 Cholesterol [Mass/Vol] 139 mg/dL NINF - 200 mg/dL [facility] Cholesterol in HDL [Mass/Vol] 36 mg/dL Low 40 - 60 mg/dL [facility] Cholesterol in LDL [Mass/Vol] 87 mg/dL 0 - <100 [facility] Cholesterol.total/Choles terol in HDL [Mass ratio] 4 {ratio} [facility] Interpretation and review of laboratory results Abnormal [facility] Triglyceride [Mass/Vol] 81 mg/dL NINF - 150 mg/dL [facility] No Panel Informationon 02-06 Interpretation and review of laboratory results Abnormal [facility] Interpretation and review of laboratory results Abnormal [facility] Interpretation and review of laboratory results Normal [facility] Troponin I.cardiac [Mass/Vol ]Ordered By: Francisco Fontanez on 02-06-2023 Interpretation and review of laboratory results Abnormal [facility] XR Abdomen Single viewon Tip of enteric tube is at the GE junction. Report Dictated on Electronically Signed By: Bola Hadley Electronically Signed Date/Time: 02/06/2023 1:41 PM [facility] RADIOLOGY SYSTEM Patient Name: CATINA LAND : 1955 Exam Date/Time: 02/06/2023 13:34 Procedure: XR ABDOMEN 1 VIEW Ordering Provider: CAMARENA MADIHAH Reason For Exam: NGT placement Clinical indication: Enteric tube placement. COMPARISON: None. TECHNIQUE: AP radiograph of the abdomen. FINDINGS: Tip of enteric tube is at the GE junction. There is a nonobstructive bowel gas pattern. No pathologic calcifications are identified. The lung bases are clear. The osseous structures are normal. [facility] Carmelina Hadley MD - 02/06/2023 Patient Name: CATINA LAND : 1955 Exam Date/Time: 02/06/2023 13:34 Procedure: XR ABDOMEN 1 VIEW Ordering Provider: CAMARENA MADIHAH Reason For Exam: NGT placement Clinical indication: Enteric tube placement. COMPARISON: None. TECHNIQUE: AP radiograph of the abdomen. FINDINGS: Tip of enteric tube is at the GE junction. There is a nonobstructive bowel gas pattern. No pathologic calcifications are identified. The lung bases are clear. The osseous structures are normal. IMPRESSION: Tip of enteric tube is at the GE junction. Report Dictated on Electronically Signed By: Bola Hadley Electronically Signed Date/Time: 02/06/2023 1:41 PM EDT [facility] RADIOLOGY SYSTEM [facility] Radiology Study observation (narrative) [facility] XR Abdomen Single viewOrdere d By: Carmelina Hadley on 02-06-2023 [facility] Work Phone: CBC panel Auto (Bld)on 02-05 Erythrocyte distribution width (RBC) [Ratio] 14.7 % High 11.5 - 14.5 % [facility] Hematocrit (Bld) [Volume fraction] 48.7 % 40.0 - 52.0 % [facility] Hemoglobin (Bld) [Mass/Vol] 16.3 g/dL 13.0 - 18.0 g/dL [facility] Interpretation and review of laboratory results Abnormal [facility] MCH (RBC) [Entitic mass] 29.9 pg 26. 0 - 34.0 pg [facility] MCHC (RBC) [Mass/Vol] 33.5 % 32.0 - 36.0 % [facility] MCV (RBC) [Entitic vol] 89.3 fL 80.0 - 98.0 fL [facility] Platelet mean volume (Bld) [Entitic vol] 8.1 fL 7.4 - 12.4 fL [facility] Platelets (Bld) [#/Vol] 246 10*3/uL 140 - 440 10*3/uL [facility] RBC (Bld) [#/Vol] 5.45 10*6/uL 4.40 - 5.9 0 10*6/uL [facility] WBC (Bld) [#/Vol] 13.3 10*3/uL High 3.6 - 10.7 10*3/uL [facility] CBC panel Auto (Bld)Ordered By: Sha Gibbs on 02-05-2023 Erythrocyte distribution width (RBC) [Ratio] 14.4 % 11.5 - 14.5 % [facility] Hematocrit (Bld) [Volume fraction] 53.9 % High 40.0 - 52.0 % [facility] Hemoglobin (Bld) [Mass/Vol] 17.4 g/dL 13.0 - 18.0 g/dL [facility] Interpretation and review of laboratory results Abnormal [facility] MCH (RBC) [Entitic mass] 29.0 pg 26. 0 - 34.0 pg [facility] MCHC (RBC) [Mass/Vol] 32.2 % 32.0 - 36.0 % [facility] MCV (RBC) [Entitic vol] 90.0 fL 80.0 - 98.0 fL [facility] Platelet mean volume (Bld) [Entitic vol] 7.9 fL 7.4 - 12.4 fL [facility] Platelets (Bld) [#/Vol] 281 10*3/uL 140 - 440 10*3/uL [facility] RBC (Bld) [#/Vol] 6.00 10*6/uL High 4.40 - 5.9 0 10*6/uL [facility] WBC (Bld) [#/Vol] 14.2 10*3/uL High 3.6 - 10.7 10*3/uL [facility] CK [Catalytic activity/Vol]o n 02-05-2023 Interpretation and review of laboratory results Abnormal [facility] CT Head WO contraston 2022 [facility] RADIOLOGY SYSTEM [facility] RADIOLOGY SYSTEM [facility] CT Head WO contrastOrdered B y: Ramón Tavares on 02-05-2023 [facility] Work Phone: Comprehensive metabolic 1998 panelon 02-05-2023 Albumin [Mass/Vol] 4.0 g/dL 3.5 - 5.0 g/dL [facility] ALP [Catalytic activity/Vol] 67 U/L 38 - 126 U/L [facility] ALT [Catalytic activity/Vol] 24 U/L 0 - 49 U/L [facility] Anion gap [Moles/Vol] 7 mmol/L 3 - 13 mmol/L [facility] AST [Catalytic activity/Vol] 76 U/L High 15 - 46 U/L [facility] Bilirubin [Mass/Vol] 1.5 mg/dL High 0.2 - 1 .3 mg/dL [facility] Calcium [Mass/Vol] 8.5 mg/dL 8.4 - 10. 4 mg/dL [facility] Chloride [Moles/Vol] 102 mmol/L 98 - 10 7 mmol/L [facility] CO2 [Moles/Vol] 27 mmol/L 22 - 30 mmol/L [facility] Creatinine [Mass/Vol] 0.86 mg/dL 0.66 - 1.25 mg/dL [facility] GFR/1.73 sq M.predicted MDRD (S/P/Bld) [Vol rate/Area] - PINF [facility] Glucose [Mass/Vol] 103 mg/dL High 70 - 100 mg/dL [facility] Interpretation and review of laboratory results Abnormal [facility] Potassium [Moles/Vol] 3.8 mmol/L 3.5 - 5.1 mmol/L [facility] Protein [Mass/Vol] 6.8 g/dL 6.3 - 8.2 g/dL [facility] Sodium [Moles/Vol] 136 mmol/L 135 - 145 mmol/L [facility] Urea nitrogen [Mass/Vol] 22 mg/dL High 9 - 20 mg/dL [facility] Albumin [Mass/Vol] 4.4 g/dL 3.5 - 5.0 g/dL [facility] ALP [Catalytic activity/Vol] 80 U/L 38 - 126 U/L [facility] ALT [Catalytic activity/Vol] 27 U/L 0 - 49 U/L [facility] Anion gap [Moles/Vol] 7 mmol/L 3 - 13 mmol/L [facility] AST [Catalytic activity/Vol] 93 U/L High 15 - 46 U/L [facility] Bilirubin [Mass/Vol] 1.4 mg/dL High 0.2 - 1 .3 mg/dL [facility] Calcium [Mass/Vol] 9.1 mg/dL 8.4 - 10. 4 mg/dL [facility] Chloride [Moles/Vol] 104 mmol/L 98 - 10 7 mmol/L [facility] CO2 [Moles/Vol] 28 mmol/L 22 - 30 mmol/L [facility] Creatinine [Mass/Vol] 1.01 mg/dL 0.66 - 1.25 mg/dL [facility] GFR/1.73 sq M.predicted MDRD (S/P/Bld) [Vol rate/Area] 81.5 mL/min/{1.73_m2} - PINF [facility] th Glucose [Mass/Vol] 105 mg/dL High 70 - 100 mg/dL [facility] Interpretation and review of laboratory results Abnormal [facility] Potassium [Moles/Vol] 4.1 mmol/L 3.5 - 5.1 mmol/L [facility] Protein [Mass/Vol] 7.6 g/dL 6.3 - 8.2 g/dL [facility] Sodium [Moles/Vol] 139 mmol/L 135 - 145 mmol/L [facility] Urea nitrogen [Mass/Vol] 23 mg/dL High 9 - 20 mg/dL [facility] Laboratory - Chemistry and C hemistry - challengeOrdered By: Marce Rob on 02-05-2023 Troponin I.cardiac [Mass/Vol] 6.250 ng/mL Critically high 0.000 - 0.034 ng/mL [facility] Laboratory - Chemistry and C hemistry - challengeon 02-05-2023 Sodium [Moles/Vol] 140 mmol/L 135 - 145 mmol/L [facility] CK [Catalytic activity/Vol] 1573 U/L High 30 - 170 U/L [facility] Glucose [Mass/Vol] 102 mg/dL High 70 - 100 mg/dL [facility] Glucose [Mass/Vol] 102 mg/dL [facility] Laboratory - Chemistry and C hemistry - challengeOrdered By: Tamiko Peter on 02-05-2023 Troponin I.cardiac [Mass/Vol] 6.470 ng/mL Critically high 0.000 - 0.034 ng/mL [facility] Laboratory - Chemistry and C hemistry - challengeOrdered By: Roseanna Davis on 02-05-2023 Troponin I.cardiac [Mass/Vol] 7.770 ng/mL Critically high 0.000 - 0.034 ng/mL [facility] Laboratory - Coagulationon 0 02-05-2023 aPTT Coag (PPP) [Time] 27.8 s 20.0 - 30.5 s [facility] INR Coag (PPP) [Relative time] 1.1 {INR} 0.9 - 1.1 [facility] PT Coag (Bld) [Time] 11.1 s 9.0 - 1 2.0 s [facility] No Panel Informationon 02-05 Interpretation and review of laboratory results Normal [facility] Heart Rate 91 bpm [facility] P [place] 77 degrees [facility] NH Interval 190 ms [facility] QRS [place] 39 degrees [facility] QRSD [facility]val [facility] Interval 389 ms [facility] QTC Interval 480 ms [facility] T Wave [place] 162 degrees [facility] CV EPIPHANY [facility] P [place] 78 degrees [facility] NH Interval 211 ms [facility] QRS [place] 60 degrees [facility] QRSD Interval 124 ms [facility] QT Interval 374 ms [facility] QTC Interval 466 ms [facility] T Wave [place] 166 degrees [facility] CV EPIPHANY [facility] RADIOLOGY SYSTEM [facility] Radiology Study observation (narrative) [facility] Interpretation and review of laboratory results Normal [facility] Interpretation and review of laboratory results Abnormal [facility] Interpretation and review of laboratory results Normal [facility] Troponin I.cardiac [Mass/Vol ]Ordered By: Marce Rob on 02-05-2023 Interpretation and review of laboratory results Abnormal [facility] Troponin I.cardiac [Mass/Vol ]Ordered By: Tamiko Peter on 02-05-2023 Interpretation and review of laboratory results Abnormal [facility] Troponin I.cardiac [Mass/Vol ]Ordered By: Roseanna Davis on 02-05-2023 Interpretation and review of laboratory results Abnormal [facility] Vital signson 02-05-2023 Heart rate 93 /min bpm [facility] XR Chest Single viewon 02-05 Mild pulmonary congestion. No acute infiltrates. Report Dictated on Electronically Signed By: Gomez Welch Electronically Signed Date/Time: 02/05/2023 2:24 PM EDT [facility] Patient Name: CATINA LAND : 1955 Exam Date/Time: 02/05/2023 14:38 Procedure: XR CHEST 1 VIEW Ordering Provider: PAGAN ABDUL Reason For Exam: NEW REQUIREMNT PORTABLE CHEST: INDICATION: Transient alteration of awareness COMPARISON: 06/29/2016 Obtained at 1408 hours. A single portable AP radiograph of the chest was obtained. The heart is normal in size. The mediastinal silhouette is normal. There is mild pulmonary congestion. No effusions or acute infiltrates. There is no pleural thickening. The osseous structures are unremarkable. There is atherosclerosis of the thoracic aorta. [facility] Rebekah Gomez, DO - 02/05/2023 Patient Name: CATINA LAND : 1955 Exam Date/Time: 02/05/2023 14:38 Procedure: XR CHEST 1 VIEW Ordering Provider: PAGAN ABDUL Reason For Exam: NEW REQUIREMNT PORTABLE CHEST: INDICATION: Transient alteration of awareness COMPARISON: 06/29/2016 Obtained at 1408 hours. A single portable AP radiograph of the chest was obtained. The heart is normal in size. The mediastinal silhouette is normal. There is mild pulmonary congestion. No effusions or acute infiltrates. There is no pleural thickening. The osseous structures are unremarkable. There is atherosclerosis of the thoracic aorta. IMPRESSION: Mild pulmonary congestion. No acute infiltrates. Report Dictated on Electronically Signed By: Gomez Welch Electronically Signed Date/Time: 02/05/2023 2:24 PM EDT [facility] RADIOLOGY SYSTEM [facility] RADIOLOGY SYSTEM [facility] Radiology Study observation (narrative) [facility] XR Chest Single viewOrdered By: Gomez Welch on 02-05-2023 [facility] [employer] Work Phone: CBC with Auto Differentialon 01-26-2022 Absolute Baso # 0.1 10*3/uL 0.0 - 0.2 10*3/uL [facility] Absolute Neut # 7.1 10*3/uL High 1.8 - 7.0 10*3/uL [facility] Basophils/100 WBC (Bld) 0.6 % 0.0 - 2.0 % [facility] Eosinophils (Bld) [#/Vol] 0.1 10*3/uL 0.0 - 0.5 10*3/uL [facility] Eosinophils/100 WBC (Bld) 0.7 % Low 1.0 - 6.0 % [facility] Granulocytes/100 WBC (Bld) 69.3 % 40.0 - 80.0 % [facility] Hematocrit (Bld) [Volume fraction] 48.5 % 40.0 - 52.0 % [facility] Hemoglobin.gastrointesti nal spec 1 Ql (Stl) 16.3 g/dL 13.0 - 18.0 g/dL [facility] Interpretation and review of laboratory results Abnormal [facility] Lymphocytes (Bld) [#/Vol] 2.1 10*3/uL 1.0 - 4.3 10*3/uL [facility] Lymphocytes/100 WBC (Bld) 20.6 % 20.0 - 40.0 % [facility] MCH (RBC) [Entitic mass] 29.9 pg 26. 0 - 34.0 pg [facility] MCHC (RBC) [Mass/Vol] 33.7 % 32.0 - 36.0 % [facility] MCV (RBC) [Entitic vol] 88.6 fL 80.0 - 98.0 fL [facility] Monocytes (Bld) [#/Vol] 0.9 10*3/uL High 0.0 - 0.8 10*3/uL [facility] Monocytes/100 WBC (Bld) 8.8 % 2.0 - 10.0 % [facility] Platelet distribution width (Bld) [Ratio] 13.9 % 11.5 - 14.5 % [facility] Platelet mean volume (Bld) [Entitic vol] 8.2 fL 7.4 - 10.4 fL [facility] Platelets (Bld) [#/Vol] 244 10*3/uL 140 - 440 10*3/uL [facility] RBC (Bld) [#/Vol] 5.47 10*6/uL 4.40 - 5.9 0 10*6/uL [facility] WBC (Bld) [#/Vol] 10.2 10*3/uL 3.6 - 10.7 10*3/uL [facility] Test Performed by [address] [address] [facility] CT MAXILLOFACIAL W CONTRASTo n 01-26-2022 Patient Name: CATINA LAND Computed Tomography ACCESSION EXAM DATE/TIME PROCEDURE ORDERING PROVIDER [id number] 01/26/2022 16:[address] Maxillofacial w/ [employer] Contrast CPT code 90833 Q9967 Reason For Exam (CT Maxillofacial w/ Contrast) dental abscess Report EXAMINATION: CT Maxillofacial w/ Contrast CLINICAL HISTORY: dental abscess COMPARISON: None TECHNIQUE: Helical CT of the facial bones with contrast FINDINGS: There are multiple carious dental lesions of the mandibular molars bilaterally including a large carious lesion of the right second mandibular premolar which is associated with apical periodontal lucency. There is an adjacent subperiosteal abscess along the buccal cortex of the right hemimandible measuring 2.4 x 1.8 x 0.9 cm. There is no significant mandibular cortical erosion. No floor of mouth inflammation or fluid collection. There is a retention cyst in the left maxillary sinus. The paranasal sinuses are otherwise clear. IMPRESSION: Carious dental disease with a 2.4 x 1.8 x 0.9 cm subperiosteal abscess along the outer cortex of the right hemimandible, most likely related to a periapical abscess of the right second mandibular premolar. Report Dictated on --- Final --- Dictated: 01/26/2022 4:14 pm Dictating Physician: MD CASTILLO THOMAS Signed Date and Time: 01/26/2022 4:31 pm Signed by: MD CASTILLO THOMAS Transcribed Date and Time: 01/26/2022 4:14 [facility] Kelsey Castillo M D - 01/26/2022 Patient Name: CATINA LAND Computed Tomography ACCESSION EXAM DATE/TIME PROCEDURE ORDERING PROVIDER [id number] 01/26/2022 16:[address] Maxillofacial w/ [employer] Contrast CPT code 62917 [id number] Reason For Exam (CT Maxillofacial w/ Contrast) dental abscess Report EXAMINATION: CT Maxillofacial w/ Contrast CLINICAL HISTORY: dental abscess COMPARISON: None TECHNIQUE: Helical CT of the facial bones with contrast FINDINGS: There are multiple carious dental lesions of the mandibular molars bilaterally including a large carious lesion of the right second mandibular premolar which is associated with apical periodontal lucency. There is an adjacent subperiosteal abscess along the buccal cortex of the right hemimandible measuring 2.4 x 1.8 x 0.9 cm. There is no significant mandibular cortical erosion. No floor of mouth inflammation or fluid collection. There is a retention cyst in the left maxillary sinus. The paranasal sinuses are otherwise clear. IMPRESSION: Carious dental disease with a 2.4 x 1.8 x 0.9 cm subperiosteal abscess along the outer cortex of the right hemimandible, most likely related to a periapical abscess of the right second mandibular premolar. Report Dictated on --- Final --- Dictated: 01/26/2022 4:14 pm Dictating Physician: MD CASTILLO THOMAS Signed Date and Time: 01/26/2022 4:31 pm Signed by: MD CASTILLO THOMAS Transcribed Date and Time: 01/26/2022 4:14 [facility] Work Phone: Radiology Study observation (narrative) [facility] Work Phone: CT MAXILLOFACIAL W CONTRASTO rdered By: Kelsey Castillo on 01-26-2022 [facility] Work Phone: CT Maxillofacial w/ Contrast on 01-26-2022 CT Maxillofacial w/ Contrast Patient Name: CATINA LAND Computed Tomography ACCESSION EXAM DATE/TIME PROCEDURE ORDERING PROVIDER [id number] 01/26/2022 16:[address] Maxillofacial w/ [employer] Contrast CPT code 97437 [id number] Reason For Exam (CT Maxillofacial w/ Contrast) dental abscess Report EXAMINATION: CT Maxillofacial w/ Contrast CLINICAL HISTORY: dental abscess COMPARISON: None TECHNIQUE: Helical CT of the facial bones with contrast FINDINGS: There are multiple carious dental lesions of the mandibular molars bilaterally including a large carious lesion of the right second mandibular premolar which is associated with apical periodontal lucency. There is an adjacent subperiosteal abscess along the buccal cortex of the right hemimandible measuring 2.4 x 1.8 x 0.9 cm. There is no significant mandibular cortical erosion. No floor of mouth inflammation or fluid collection. There is a retention cyst in the left maxillary sinus. The paranasal sinuses are otherwise clear. IMPRESSION: Carious dental disease with a 2.4 x 1.8 x 0.9 cm subperiosteal abscess along the outer cortex of the right hemimandible, most likely related to a periapical abscess of the right second mandibular premolar. Report Dictated on Final Dictated: 01/26/2022 4:14 pm Dictating Physician: MD CASTILLO THOMAS Signed Date and Time: 01/26/2022 4:31 pm Signed by: MD CASTILLO THOMAS Transcribed Date and Time: 01/26/2022 4:14 Normal [facility] Comp Metabolic Panelon 01-26 ALT [Catalytic activity/Vol] 18 U/L Normal 0-49 [facility] Comment on above: Result Comment: The ALT test is performed by an updated assay method. Please note that the reference intervals have been changed and are now sex specific. Performed By: #### H CHECO LANDERS3 #### [facility] [address] [place] [address] Calcium [Mass/Vol] 9.3 mg/dL Normal 8.4-10.4 [facility] Comment on above: Performed By: #### H CHECO LANDERS3 #### [facility] [address] [place] [address] Glucose [Mass/Vol] 94 mg/dL Normal 70-100 [facility] Comment on above: Performed By: #### H EMDF CMP3 #### [facility] [address] [place], [place] ALP [Catalytic activity/Vol] 81 U/L Normal 38-126 [facility] Comment on above: Performed By: #### H EMDF CMP3 #### [facility] [address], [place] Anion gap [Moles/Vol] 5 mmol/L Normal 3-13 [facility] Comment on above: Performed By: #### H EMDF CMP3 #### [facility] [address], [place] AST [Catalytic activity/Vol] 21 U/L Normal 15-46 [facility] Comment on above: Performed By: #### H EMDF CMP3 #### [facility] [address], [place] Bilirubin [Mass/Vol] 1.0 mg/dL Normal 0.2-1.3 [facility] Comment on above: Performed By: #### H EMDF CMP3 #### [facility] [address], [place] CO2 [Moles/Vol] 30 mmol/L Normal 22-30 [facility] Comment on above: Performed By: #### H EMDF CMP3 #### [facility] [address], [place] Creatinine [Mass/Vol] 1.10 mg/dL Normal 0.52-1.25 [facility] Comment on above: Performed By: #### H EMDF CMP3 #### [facility] [address], [place] GFR/1.73 sq M.predicted among blacks MDRD (S/P/Bld) [Vol rate/Area] 80.5 mL/min/{1.73_m2} Normal >60 [facility] Comment on above: Performed By: #### H EMDF CMP3 #### [facility] [address], [place] GFR/1.73 sq M.predicted among non-blacks MDRD (S/P/Bld) [Vol rate/Area] 69.4 mL/min/{1.73_m2} Normal >60 [facility] Comment on above: Result Comment: KDIG O guidelines provide the following GFR categories: Stage GFR(ml/min/1.73 m2) Terms G1 >=90 Normal or high G2 60-89 Mildly decreased* G3a 45-59 Mildly to moderately decreased G3b 30-44 Moderately to severely decreased G4 15-29 Severely decreased G5 <15 Kidney failure *Relative to young adult level. In the absence of evidence of kidney damage, neither GFR category G1 nor G2 fulfill the criteria for CKD. The CKD-EPI equation is validated in individuals 18 years of age and older. Currently the best equation for estimating glomerular filtration rate (GFR) from serum creatinine in children is the Bedside Mullen equation. It is less accurate in patients with extremes of muscle mass, restriction of dietary protein, ingestion of creatine, extra-renal metabolism of creatinine, or treatment with medications that affect renal tubular creatinine secretion. Performed By: #### H CHECO LANDERS3 #### [place] [address] [address], [place] Protein [Mass/Vol] 7.4 g/dL Normal 6.3-8.2 [facility] Comment on above: Performed By: #### H CHECO LANDERS3 #### [place] [address] [place], [place] Urea nitrogen [Mass/Vol] 19 mg/dL High 7-17 [facility] Comment on above: Performed By: #### H CHECO LANDERS3 #### [facility] [address], [place] Potassium [Moles/Vol] 4.7 mmol/L Normal 3.5-5.1 [facility] Comment on above: Performed By: #### H CHECO LANDERS3 #### [facility] [address], [place] Sodium [Moles/Vol] 136 mmol/L Normal 135-145 [facility] Comment on above: Performed By: #### H CHECO LANDERS3 #### [address] Albumin [Mass/Vol] 4.2 g/dL Normal 3.5-5.0 [facility] Comment on above: Performed By: #### H CHECO LANDERS3 #### [facility] [address], [place] Chloride [Moles/Vol] 101 mmol/L Normal 98-107 [facility] Comment on above: Performed By: #### H CHECO LANDERS3 #### [facility] [address], [place] Comprehensive Metabolic Pane kristal 01-26-2022 Albumin [Mass/Vol] 4.2 g/dL 3.5 - 5.0 g/dL [facility] ALP (Bld) [Catalytic activity/Vol] 81 U/L 38 - 126 U/L [facility] ALT [Catalytic activity/Vol] 18 U/L 0 - 49 U/L [facility] Comment on above: The ALT test is perf ormed by an updated assay method. Please note that the reference intervals have been changed and are now sex specific. Anion gap [Moles/Vol] 5 mmol/L 3 - 13 mmol/L [facility] AST [Catalytic activity/Vol] 21 U/L 15 - 46 U/L [facility] Bilirubin [Mass/Vol] 1.0 mg/dL 0.2 - 1 .3 mg/dL [facility] Calcium [Mass/Vol] 9.3 mg/dL 8.4 - 10. 4 mg/dL [facility] Chloride [Moles/Vol] 101 mmol/L 98 - 10 7 mmol/L [facility] CO2 [Moles/Vol] 30 mmol/L 22 - 30 mmol/L [facility] Creatinine [Mass/Vol] 1.1 mg/dL 0.52 - 1.25 mg/dL [facility] EGFR IF NonAfrican [place]yan 69.4 mL/min >60 [facility] Comment on above: KDIGO guidelines pro vide the following GFR categories: Stage GFR(ml/min/1.73 m2) Terms G1 >=90 Normal or high G2 60-89 Mildly decreased* G3a 45-59 Mildly to moderately decreased G3b 30-44 Moderately to severely decreased G4 15-29 Severely decreased G5 <15 Kidney failure *Relative to young adult level. In the absence of evidence of kidney damage, neither GFR category G1 nor G2 fulfill the criteria for CKD. The CKD-EPI equation is validated in individuals 18 years of age and older. Currently the best equation for estimating glomerular filtration rate (GFR) from serum creatinine in children is the Bedside Mullen equation. It is less accurate in patients with extremes of muscle mass, restriction of dietary protein, ingestion of creatine, extra-renal metabolism of creatinine, or treatment with medications that affect renal tubular creatinine secretion. Free PSA/Total PSA [Mass fraction] 7.4 g/dL 6.3 - 8.2 g/dL [facility] GFR/1.73 sq M.predicted among blacks MDRD (S/P/Bld) [Vol rate/Area] 80.5 mL/min/{1.73_m2} >60 [facility] Glucose [Mass/Vol] 94 mg/dL 70 - 100 mg/dL [facility] Interpretation and review of laboratory results Abnormal [facility] Potassium [Moles/Vol] 4.7 mmol/L 3.5 - 5.1 mmol/L [facility] Sodium [Moles/Vol] 136 mmol/L 135 - 145 mmol/L [facility] Urea nitrogen (BldV) [Mass/Vol] 19 mg/dL High 7 - 17 mg/dL [facility] Test Performed by [facility], [address] [place] [id number] [place] [address] [facility] ED Provider Noteon ED [facility] Patient: Catina Land : 1955 Date of Evaluation: 01/26/2022 ED NAVDEEP Provider: Mary Kay Taveras PA-C This patient was seen during the COVID-19 pandemic. I've seen this patient per my scope of practice with attending available at all times for consultation. Appropriate PPE was worn during the entirety of this encounter. Chief Complaint Chief Complaint Patient presents with ? Dental Pain Pt started having dental pain rt lower tuesday. Went to dentist and sent here for ATB b/c too much infection to repair. NANCY Land is a 66 y.o. male who presents to the emergency department with complaints of right lower dental pain. Patient has history of poor dentition and was recently evaluated by his dentist. He reports that the dentist thought the infection was too bad to perform any procedures and was started on oral doxycycline the other day. Patient reports worsening pain to the right lower jaw on Tuesday. Describes it as a dull, aching pain. Alleviated with [id number] medication. Denies any pain currently, just pressure. Reports feeling chills. Denies any fever. Denies difficulty swallowing, chest pain, shortness of breath. Denies bleeding or purulent drainage. ROS: Review of Systems At least 8 systems reviewed and otherwise acutely negative except as in the AKUTAN. Past History Past Medical History: Diagnosis Date ? CAD (coronary artery disease) ? 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 Hyperlipidemia ? 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 Pneumonia ? Presence of stent in coronary artery 03/2014 ? Third degree AV block (HCC) 03/28/2014 during inferior STEMI Past Surgical History: Procedure Laterality Date ? CORONARY ANGIOPLASTY 03/28/2014 DANDY to prox RCA x 2 ? CORONARY ARTERY BYPASS GRAFT 04/2014 SENIOR-LAD, SVG-PD/RCA Social History Socioeconomic History ? Marital status: Single Spouse name: None ? Number of children: None ? Years of education: None ? Highest education level: None Occupational History ? None Tobacco Use ? Smoking status: Current Every Day Smoker Packs/day: 1.00 Years: 42.00 Pack years: 42.00 Types: Cigarettes Start date: 03/17/1975 ? Smokeless tobacco: None Substance and Sexual Activity ? Alcohol use: Yes Comment: occasionally ? Drug use: No Comment: 5 cups of coffee daily ? Sexual activity: None Other Topics Concern ? None Social History Narrative ? None Social Determinants of Health Financial Resource Strain: ? Difficulty of Paying Living Expenses: Not on file Food Insecurity: ? Worried About Running Out of Food in the Last Year: Not on file ? Ran Out of Food in the Last Year: Not on file Transportation Needs: ? Lack of Transportation (Medical): Not on file ? Lack of Transportation (Non-Medical): Not on file Physical Activity: ? Days of Exercise per Week: Not on file ? Minutes of Exercise per Session: Not on file Stress: ? Feeling of Stress : Not on file Social Connections: ? Frequency of Communication with Friends and Family: Not on file ? Frequency of Social Gatherings with Friends and Family: Not on file ? Attends [employer] Services: Not on file ? Active Member of Clubs or Organizations: Not on file ? Attends Club or Organization Meetings: Not on file ? Marital Status: Not on file Intimate Partner Violence: ? Fear of Current or Ex-Partner: Not on file ? Emotionally Abused: Not on file ? Physically Abused: Not on file ? Sexually Abused: Not on file Housing Stability: ? Unable to Pay for Housing in the Last Year: Not on file ? Number of Places Lived in the Last Year: Not on file ? Unstable Housing in the Last Year: Not on file Medications/Allergies Previous Medications ASPIRIN 81 MG EC TABLET Take 81 mg by mouth daily ATORVASTATIN (LIPITOR) 80 MG TABLET Take 1 tablet by mouth daily HYDROCHLOROTHIAZIDE (HYDRODIURIL) 12.5 MG TABLET Take 1 tablet by mouth daily LISINOPRIL (PRINIVIL;ZESTRIL) 20 MG TABLET TAKE 1 TABLET DAILY METOPROLOL TARTRATE (LOPRESSOR) 50 MG TABLET TAKE 1 TABLET TWICE A DAY NITROGLYCERIN (NITROSTAT) 0.[address] 0.4 mg under the tongue every 5 minutes as needed for Chest pain up to max of 3 total doses. If no relief, call 911. VARENICLINE (CHANTIX STARTING MONTH ) 0.5 MG X 11 & 1 MG X 42 TABLET Take by mouth. Allergies Allergen Reactions ? Bee Venom Anaphylaxis ? Erythromycin Base Other (See Comments) unknown Physical Exam ED Triage Vitals [01/26/22 1416] BP Temp Temp Source Pulse Resp SpO2 Height Weight (!) 198/121 97.3 ?F (36.3 ?C) Temporal 107 16 96 % -- -- Physical Exam General: Vitals noted. NAD, nontoxic, afebrile. Speaking in full, clear sentences. HEENT: Normocephalic, subtle edema with TTP along the right lower jaw, no obvious abscesses noted within the inner right lower jaw along the teeth, there is ob (more content not included)... Normal [facility] ED Provider Note Emergency Department Encounter [facility] EMERGENCY DEPT Patient: Catina Land : 1955 Date of Evaluation: 01/26/2022 ED Provider: SANTO SALES MD I saw the patient as the Clinician in Triage and performed a brief history and physical exam, established acuity, and ordered appropriate tests to develop basic plan of care. Patient will be seen by NAVDEEP, resident and/or my physician partner who will evaluate the patient. If seen by the NAVDEEP I will manage the patient in a supervisory role and will be available for co-management and this will serve as my NAVDEEP Supervisory note and shared attestation. I did perform a substantive portion of the visit including all aspects of the Medical Decision Making. I wore appropriate PPE for the entirety of this encounter. Does this patient come from an ECF, SNF, Rehab, Fci or other Congregate setting: no (If yes to above patient needs a Covid-19 test) Brief HPI: In brief, Catina Land is a 66 y.o. male that presents for sent here for evaluation of dental abscess. Patient went to a dentist today and he was sent here for antibiotic treatment. His dentist told him that there was too much infection further to be a repair. He has a history of coronary artery disease and has had bypass graft surgeries x2. He has a stent and a coronary artery disease. He has a history of hyperlipidemia. There is no history of diabetes. He denies any difficulty swallowing.. Focused Physical exam: On examination the patient is an older male found sitting on a chair. He is alert and oriented. Answers questions appropriately. He demonstrates no confusion. Examination of the oral cavity demonstrates an nephrogram gingival reaction and edema to the right lower molars. There is no edema to the floor the mouth. Uvula is midline. Plan/MDM: The patient appears to have significant dental abscess. There does not appear to be Anita's angina. However maxillofacial CT will be obtained along with laboratory work. Disposition will be based on results of diagnostic testing and reassessment. Please see subsequent provider note for further details and disposition Comment: Please note this report has been produced using speech recognition software and may contain errors related to that system including errors in grammar, punctuation, and spelling as well as words and phrases that may be inappropriate. If there are any questions or concerns please feel free to contact the dictating provider for clarification SANTO SALES MD [employer] Santo Sales MD 01/26/22 1433 Normal [facility] Hemogram w/ Autodiffon 01-26 Abs Baso Cnt 0.1 10*3/uL Normal 0.0-0.2 [employer] [facility] Comment on above: Performed By: #### [facility] #### [facility] [address] [place] [address] Abs Neutrophile Cnt 7.1 10*3/uL High 1.8-7.0 [facility] Comment on above: Performed By: #### H ANSHUL CMP3 #### [facility] [address] [place] [address] Basophils/100 WBC (Bld) 0.6 % Normal 0.0-2.0 [facility] Comment on above: Performed By: #### H ANSHUL CMP3 #### [place] [address] [place] [address] Eosinophils (Bld) [#/Vol] 0.1 10*3/uL Normal 0.0-0.5 [facility] Comment on above: Performed By: #### H ANSHUL CMP3 #### [place] [address] [place] [address] Eosinophils/100 WBC (Bld) 0.7 % Low 1.0-6.0 [facility] Comment on above: Performed By: #### H ANSHUL CMP3 #### [place] [address], [place] Erythrocyte distribution width (RBC) [Ratio] 13.9 % Normal 11.5-14.5 [facility] Comment on above: Performed By: #### H ANSHUL CMP3 #### [place] [address] [place] [address] Granulocytes/100 WBC (Bld) 69.3 % Normal 40.0-80.0 [facility] Comment on above: Performed By: #### H ANSHUL CMP3 #### [place] [address], [place] Hematocrit (Bld) [Volume fraction] 48.5 % Normal 40.0-52.0 [facility] Comment on above: Performed By: #### H ANSHUL CMP3 #### [address] [place] [address] Hemoglobin (Bld) [Mass/Vol] 16.3 g/dL Normal 13.0-18.0 [facility] Comment on above: Performed By: #### H CHLOEF, CMP3 #### [facility] [address], [place] Lymphocytes (Bld) [#/Vol] 2.1 10*3/uL Normal 1.0-4.3 [facility] Comment on above: Performed By: #### H EMDF, CMP3 #### [facility] [address], [place] Lymphocytes/100 WBC (Bld) 20.6 % Normal 20.0-40.0 [facility] Comment on above: Performed By: #### H EMDF, CMP3 #### [facility] [address], [place] MCH (RBC) [Entitic mass] 29.9 pg Normal 26.0-34.0 [facility] Comment on above: Performed By: #### H EMDF, CMP3 #### [facility] [address], [place] MCHC 33.7 % Normal 32.0-36.0 [facility] Comment on above: Performed By: #### H EMDF, CMP3 #### [facility] [address], [place] MCV (RBC) [Entitic vol] 88.6 fL Normal 80.0-98.0 [facility] Comment on above: Performed By: #### H EMDF, CMP3 #### [facility] [address], [place] Monocytes (Bld) [#/Vol] 0.9 10*3/uL High 0.0-0.8 [facility] Comment on above: Performed By: #### H EMDF, CMP3 #### [facility] [address], [place] Monocytes/100 WBC (Bld) 8.8 % Normal 2.0-10.0 [facility] Comment on above: Performed By: #### H EMDF, CMP3 #### [facility] [address], [place] Platelet mean volume (Bld) [Entitic vol] 8.2 fL Normal 7.4-10.4 [facility] Comment on above: Performed By: #### H EMDF, CMP3 #### [facility] [address], [place] Platelets (Bld) [#/Vol] 244 10*3/uL Normal 140-440 [facility] Comment on above: Performed By: #### H EMDF, CMP3 #### [facility] [address], [place] RBC (Bld) [#/Vol] 5.47 10*6/uL Normal 4.40-5.90 [facility] Comment on above: Performed By: #### H EMDF, CMP3 #### [facility] [address], [place] WBC (Bld) [#/Vol] 10.2 10*3/uL Normal 3.6-10.7 [facility] Comment on above: Performed By: #### H EMDF, CMP3 #### [facility] [address], [place] Vital Signs Date Time Vital Sign Value Performing Clinician Faci lity 03-18-2025 23:50-0400 SaO2% (BldA) [Mass fraction] 94 % Radha Olguin MD Work Phone: [facility] 03-18-2025 23:46-0400 Body temperature 97.81 [degF] Radha Olguin MD Work Phone: [facility] 03-18-2025 23:46-0400 Diastolic blood pressure 58 mm[Hg] Radha Olguin MD Work Phone: [facility] 03-18-2025 23:46-0400 Heart rate 61 /min Radha Olguin MD Work Phone: [facility] 03-18-2025 23:46-0400 Respiratory rate 16 /min Radha Olguin MD Work Phone: [facility] 03-18-2025 23:46-0400 Systolic blood pressure 116 mm[Hg] Radha Olguin MD Work Phone: [facility] 03-11-2025 15:00-0400 Diastolic blood pressure 62 mm[Hg] Santo Sales MD Work Phone: [facility] 03-11-2025 15:00-0400 Heart rate 60 /min Santo Sales MD Work Phone: [facility] 03-11-2025 15:00-0400 Respiratory rate 12 /min Santo Sales MD Work Phone: [facility] 03-11-2025 15:00-0400 SaO2% (BldA) [Mass fraction] 96 % Santo Sales MD Work Phone: [facility] 03-11-2025 15:00-0400 Systolic blood pressure 106 mm[Hg] Santo Sales MD Work Phone: [facility] 03-11-2025 12:06-0400 Body height 175.3 cm Santo Sales MD Work Phone: [facility] 03-11-2025 12:06-0400 Body mass index (BMI) [Ratio] 23.63 kg/m2 Santo Sales MD Work Phone: [facility] 03-11-2025 12:06-0400 Body temperature 97.39 [degF] Santo Sales MD Work Phone: [facility] 03-11-2025 12:06-0400 Body weight 72.58 kg Santo Sales MD Work Phone: [facility] 06-21-2024 10:50-0400 Diastolic blood pressure 62 mm[Hg] Rachael Malhotra SOCCER REFEREE - ETHYLBENZENE CRACKING SUPERVISOR Work Phone: [facility] 06-21-2024 10:50-0400 Heart rate 76 /min Rachael Malhotra SOCCER REFEREE - ETHYLBENZENE CRACKING SUPERVISOR Work Phone: [facility] 06-21-2024 10:50-0400 Systolic blood pressure 101 mm[Hg] Rachael Malhotra SOCCER REFEREE - ETHYLBENZENE CRACKING SUPERVISOR Work Phone: [facility] 03-30-2024 10:40-0400 Body height 162.6 cm Shira Garcia MD Work Phone: [facility] 03-30-2024 10:40-0400 Body mass index (BMI) [Ratio] 27.46 kg/m2 Shira Garcia MD Work Phone: [facility] 03-30-2024 10:40-0400 Body weight 72.58 kg Shira Garcia MD Work Phone: [facility] 01-23-2024 13:12-0400 Body height 162.6 cm Amol Peterson MD Work Phone: [facility] 01-23-2024 13:12-0400 Body mass index (BMI) [Ratio] 27.46 kg/m2 Amol Peterson MD Work Phone: [facility] 01-23-2024 13:12-0400 Body weight 72.58 kg Amol Peterson MD Work Phone: [facility] 01-23-2024 13:12-0400 Diastolic blood pressure 66 mm[Hg] Amol Peterson MD Work Phone: [facility] 01-23-2024 13:12-0400 Heart rate 60 /min Amol Peterson MD Work Phone: [facility] 01-23-2024 13:12-0400 Systolic blood pressure 105 mm[Hg] Amol Peterson MD Work Phone: [facility] 12-28-2023 12:15-0500 Diastolic blood pressure 89 mm[Hg] Veysel Tahan Work Phone: [facility] 12-28-2023 12:15-0500 Respiratory rate 18 /min Veysel Tahan Work Phone: [employer] [facility] [facility] 12-28-2023 12:15-0500 SaO2% (BldA) [Mass fraction] 94 % Veysel Tahan Work Phone: [facility] [facility] 12-28-2023 12:15-0500 Systolic blood pressure 128 mm[Hg] Veysel Tahan Work Phone: [facility] [facility] 12-28-2023 12:04-0500 Heart rate 78 /min Veysel Tahan Work Phone: [employer] 12-28-2023 11:54-0500 Body temperature 97.9 [degF] [email or web address] Work Phone: [employer] 12-28-2023 11:11-0500 Body height 162.6 cm [email or web address] Work Phone: [facility] 12-28-2023 11:11-0500 Body mass index (BMI) [Ratio] 27.46 kg/m2 [email or web address] Work Phone: [facility] 12-28-2023 11:11-0500 Body weight 72.58 kg [email or web address] Work Phone: [facility] 12-21-2023 12:48-0500 Body mass index (BMI) [Ratio] 27.46 kg/m2 Rachaeljeremy Malhotra SOCCER REFEREE - ETHYLBENZENE CRACKING SUPERVISOR Work Phone: [employer] 12-21-2023 12:48-0500 Body weight 72.58 kg Rachaelboaz Malhotra SOCCER REFEREE - ETHYLBENZENE CRACKING SUPERVISOR Work Phone: [facility] Comment on above: pert chart review 12-21-2023 12:48-0500 Diastolic blood pressure 71 mm[Hg] Rachaelboaz Malhotra SOCCER REFEREE - ETHYLBENZENE CRACKING SUPERVISOR Work Phone: [employer] [facility] 12-21-2023 12:48-0500 Heart rate 58 /min Rachaelboaz Malhotra SOCCER REFEREE - ETHYLBENZENE CRACKING SUPERVISOR Work Phone: [employer] 12-21-2023 12:48-0500 Systolic blood pressure 107 mm[Hg] Rachael Malhotra SOCCER REFEREE - ETHYLBENZENE CRACKING SUPERVISOR Work Phone: [facility] 11-21-2023 08:06-0500 Body height 162.6 cm Isabela Bañueloser SOCCER REFEREE - ETHYLBENZENE CRACKING SUPERVISOR Work Phone: [facility] 11-21-2023 08:06-0500 Body mass index (BMI) [Ratio] 27.46 kg/m2 Isabela Bañueloser SOCCER REFEREE - ETHYLBENZENE CRACKING SUPERVISOR Work Phone: [employer] 11-21-2023 08:06-0500 Body temperature 97.2 [degF] Isabela De Leon SOCCER REFEREE - ETHYLBENZENE CRACKING SUPERVISOR Work Phone: [facility] 11-21-2023 08:06-0500 Body weight 72.58 kg Isabela De Leon SOCCER REFEREE - ETHYLBENZENE CRACKING SUPERVISOR Work Phone: [facility] 11-21-2023 08:06-0500 Diastolic blood pressure 62 mm[Hg] Isabela De Leon SOCCER REFEREE - ETHYLBENZENE CRACKING SUPERVISOR Work Phone: [facility] 11-21-2023 08:06-0500 Heart rate 59 /min Isabela De Leon SOCCER REFEREE - ETHYLBENZENE CRACKING SUPERVISOR Work Phone: [facility] 11-21-2023 08:06-0500 Systolic blood pressure 120 mm[Hg] Isabela De Leon SOCCER REFEREE - ETHYLBENZENE CRACKING SUPERVISOR Work Phone: [facility] 11-03-2023 13:00-0500 Diastolic blood pressure 76 mm[Hg] Teodoro Cameron MD Work Phone: [facility] 11-03-2023 13:00-0500 Heart rate 67 /min Teodoro Cameron MD Work Phone: [facility] 11-03-2023 13:00-0500 Respiratory rate 16 /min Teodoro Cameron MD Work Phone: [facility] 11-03-2023 13:00-0500 SaO2% (BldA) [Mass fraction] 95 % Teodoro Cameron MD Work Phone: [facility] 11-03-2023 13:00-0500 Systolic blood pressure 111 mm[Hg] Teodoro Cameron MD Work Phone: [facility] 11-03-2023 11:52-0500 Body mass index (BMI) [Ratio] 27.46 kg/m2 Teodoro Cameron MD Work Phone: [facility] 11-03-2023 11:52-0500 Body weight 72.58 kg Teodoro Cameron MD Work Phone: [facility] 11-03-2023 08:47-0500 Body temperature 98.6 [degF] Teodoro Cameron MD Work Phone: [facility] 04-11-2023 08:39-0400 Diastolic blood pressure 71 mm[Hg] Natalie Flores MD Work Phone: [facility] 04-11-2023 08:39-0400 Heart rate 80 /min Natalie Flores MD Work Phone: [facility] 04-11-2023 08:39-0400 Respiratory rate 18 /min Natalie Flores MD Work Phone: [facility] 04-11-2023 08:39-0400 SaO2% (BldA) [Mass fraction] 95 % Natalie Flores MD Work Phone: [facility] 04-11-2023 08:39-0400 Systolic blood pressure 119 mm[Hg] Natalie Flores MD Work Phone: [facility] 04-10-2023 23:24-0400 Body temperature 98.4 [degF] Natalie Flores MD Work Phone: [facility] 03-10-2023 17:35-0400 Diastolic blood pressure 67 mm[Hg] Jaklyn Kartik DO Work Phone: [facility] 03-10-2023 17:35-0400 Heart rate 73 /min Jaklyn Kartik DO Work Phone: [facility] 03-10-2023 17:35-0400 Systolic blood pressure 132 mm[Hg] Jaklyn Houston DO Work Phone: [facility] 03-10-2023 12:05-0400 Respiratory rate 18 /min Jaklyn Kartik DO Work Phone: [facility] 03-10-2023 12:05-0400 SaO2% (BldA) [Mass fraction] 97 % Jaklyn Houston DO Work Phone: [facility] 03-10-2023 08:39-0400 Body temperature 98.1 [degF] Jaklyn Houston DO Work Phone: [facility] 03-05-2023 03:27-0400 Diastolic blood pressure 76 mm[Hg] Jani Garces MD Work Phone: [facility] 03-05-2023 03:27-0400 Heart rate 91 /min Jani Garces MD Work Phone: [facility] 03-05-2023 03:27-0400 Respiratory rate 18 /min Jani Garces MD Work Phone: [facility] 03-05-2023 03:27-0400 SaO2% (BldA) [Mass fraction] 95 % Jani Garces MD Work Phone: [facility] 03-05-2023 03:27-0400 Systolic blood pressure 124 mm[Hg] Jani Garces MD Work Phone: [facility] 03-04-2023 17:36-0400 Body height 162.6 cm Jani Garces MD Work Phone: [facility] 03-04-2023 17:36-0400 Body mass index (BMI) [Ratio] 26.09 kg/m2 Jani Garces MD Work Phone: [facility] 03-04-2023 17:36-0400 Body temperature 98.2 [degF] Jani Garces MD Work Phone: [facility] 03-04-2023 17:36-0400 Body weight 68.95 kg Jani Garces MD Work Phone: [facility] 02-26-2023 08:30-0400 Heart rate 75 /min Madeline Figueroa MD Work Phone: [facility] 02-26-2023 08:30-0400 Respiratory rate 16 /min Madeline Figueroa MD Work Phone: [facility] 02-26-2023 08:30-0400 SaO2% (BldA) [Mass fraction] 96 % Madeline Figueroa MD Work Phone: [facility] 02-26-2023 06:17-0400 Body temperature 98.4 [degF] Madeline Figueroa MD Work Phone: [facility] 02-26-2023 06:17-0400 Diastolic blood pressure 65 mm[Hg] Madeline Figueroa MD Work Phone: [facility] 02-26-2023 06:17-0400 Systolic blood pressure 127 mm[Hg] Madeline Figueroa MD Work Phone: [facility] 02-23-2023 15:29-0400 Body height 165.1 cm Madeline Figueroa MD Work Phone: [facility] 02-12-2023 06:00-0400 Body mass index (BMI) [Ratio] 25.42 kg/m2 Madeline Figueroa MD Work Phone: [facility] 02-12-2023 06:00-0400 Body weight 69.3 kg Madeline Figueroa MD Work Phone: [facility] 01-26-2022 18:29-0400 Body temperature 99.1 [degF] Santo Sales MD Work Phone: [facility] 01-26-2022 18:29-0400 Diastolic blood pressure 108 mm[Hg] Santo Sales MD Work Phone: [facility] 01-26-2022 18:29-0400 Heart rate 94 /min Santo Sales MD Work Phone: [facility] 01-26-2022 18:29-0400 Respiratory rate 16 /min Santo Sales MD Work Phone: [facility] 01-26-2022 18:29-0400 SaO2% (BldA) [Mass fraction] 96 % Santo Sales MD Work Phone: [facility] 01-26-2022 18:29-0400 Systolic blood pressure 203 mm[Hg] Santo Sales MD Work Phone: [facility] Encounters Encounter Date Encounter Type Care Provider Facility Start: 03-18-2025 End: 03-19-2025 Emergency department patient visit Radha Olguin MD Work Phone: [facility] ED Comment on above: Nausea and vomiting, unspecified vomiting type (Primary Dx); Fecal impaction (CMS/HCC) (HCC) Start: 03-11-2025 End: 03-11-2025 Emergency department patient visit Snato Sales MD Work Phone: [facility] ED Comment on above: PEG (percutaneous en doscopic gastrostomy) adjustment/replacement/removal (HCC) (Primary Dx) Start: 02-06-2025 End: 02-06-2025 ambulatory Kelsey FIERRO Facility:[facility] Start: 12-17-2024 ambulatory Kelsey FIERRO Facil ity:[facility] Start: 09-18-2024 End: 09-18-2024 ambulatory Kelsey FIERRO Facility:[facility] Start: 09-14-2024 End: 09-14-2024 Telephone encounter Rachael Malhotra APRN - ETHYLBENZENE CRACKING SUPERVISOR Work Phone: [facility] Comment on above: Sleep Study (Unable to contact) Start: 08-24-2024 End: 08-27-2024 Telephone encounter Kyle Dawson MD Work Phone: [facility] Start: 08-16-2024 End: 08-16-2024 ambulatory Kelsey FIERRO Facility:[facility] Start: 06-21-2024 End: 06-21-2024 Office outpatient visit 25 minutes Rachael Malhotra APRN - [employer]ENZ[employer] CRACKING SUPERVISOR Work Phone: [facility] Comment on above: Ischemic stroke (HCC ) (Primary Dx); Atrial thrombus; Dysphagia as late effect of stroke; Obstructive sleep apnea; Aphasia Start: 06-21-2024 End: 06-21-2024 ambulatory [facility] Start: 06-08-2024 End: 06-08-2024 ambulatory Kelsye FIERRO Facility:[facility] Start: 03-30-2024 End: 03-30-2024 Nasopharynx normal Shira Garcia MD Work Phone: [facility] Work Phone: Start: 03-30-2024 End: 03-30-2024 Office outpatient new 30 minutes Shira Garcia MD Work Phone: [facility] Comment on above: Bilateral impacted c erumen (Primary Dx); Normal nasopharyngeal exam Start: 03-30-2024 End: 03-30-2024 ambulatory [facility] Start: 02-19-2024 Telephone encounter Kelsey Rio brandi Work Phone: [facility] Comment on above: Test Scheduling Start: 01-26-2024 End: 01-26-2024 ambulatory [facility] Work Phone: Start: 01-26-2024 End: 01-26-2024 Departed Referred [facility] [address] Start: 01-26-2024 Registered Referred [facility] [address] Start: 01-24-2024 End: 01-24-2024 ambulatory [facility] Work Phone: Start: 01-24-2024 End: 01-24-2024 Departed Referred [facility] [address] Start: 01-23-2024 End: 01-23-2024 Office outpatient new 45 minutes Amol Peterson MD Work Phone: [facility] Comment on above: 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); Hyperlipidemia, unspecified hyperlipidemia type; History of ischemic left MCA stroke; Coronary artery disease involving [place] coronary artery of [place] heart without angina pectoris; Left atrial thrombus Start: 12-28-2023 End: 12-28-2023 Subsequent hospital visit by physician Omega Flores Work Phone: [facility] Endoscopy Comment on above: Benign neoplasm of n asopharynx (Primary Dx); Nausea with vomiting, unspecified; Gastrostomy status (HCC); prison (current) use of anticoagulants; Dependence on supplemental oxygen Start: 12-21-2023 End: 12-21-2023 Office outpatient visit 25 minutes Rachael Malhotra APRN - ETHYLBENZENE CRACKING SUPERVISOR Work Phone: [facility] Comment on above: Ischemic stroke (HCC ) (Primary Dx); Atrial thrombus; Dysphagia as late effect of stroke Start: 12-07-2023 Telephone encounter Mahogany Pinto MA [facility] Comment on above: Insurance issues Start: 11-21-2023 End: 11-21-2023 Office outpatient new 45 minutes Isabela SOCCER REFEREE - ETHYLBENZENE CRACKING SUPERVISOR Work Phone: [facility] Comment on above: Nausea and vomiting, unspecified vomiting type (Primary Dx); S/P percutaneous endoscopic gastrostomy (PEG) tube placement (HCC); prison current use of anticoagulant; On supplemental oxygen therapy Start: 11-16-2023 Telephone encounter Rachael Rivera SOCCER REFEREE - ETHYLBENZENE CRACKING SUPERVISOR Work Phone: [facility] Start: 11-03-2023 End: 11-03-2023 Emergency department patient visit Teodoro Cameron MD Work Phone: [facility] ED Comment on above: PEG tube malfunction (CMS/HCC) (HCC) (Primary Dx) Start: 07-19-2023 End: 07-19-2023 Office outpatient visit 25 minutes Rachael Malhotra SOCCER REFEREE - ETHYLBENZENE CRACKING SUPERVISOR Work Phone: [facility] Comment on above: Ischemic stroke (HCC ) (Primary Dx); Obstructive sleep apnea; Projectile vomiting, unspecified whether nausea present Start: 07-15-2023 Telephone encounter Rachael Rivera SOCCER REFEREE - ETHYLBENZENE CRACKING SUPERVISOR Work Phone: [facility] Comment on above: Appointment Request; telehealth visit Start: 04-20-2023 Transcribe Orders Kelsey gary Work Phone: [facility] Scheduling Comment on above: Dysphagia, oropharyn geal phase (Primary Dx) Start: 04-10-2023 End: 04-11-2023 Emergency department patient visit Natalie Flores MD Work Phone: [facility] EMERGENCY DEPT Comment on above: PEG tube malfunction (CMS/HCC) (HCC) (Primary Dx) Start: 03-05-2023 End: 03-10-2023 Emergency department patient visit Galina Johansen DO Work Phone: [facility] Comment on above: Sepsis (HCC) (Primar y Dx); Hypokalemia Start: 03-04-2023 End: 03-05-2023 Emergency department patient visit Jani Garces MD Work Phone: [facility] EM[facility]GENCY [facility]PT Comment on above: Chest pain, unspecif ied type (Primary Dx) Start: 02-23-2023 End: 02-23-2023 Evaluation and management of inpatient Ach Ed Xr Exam Room 1 [facility] Comment on above: Arrived Start: 02-19-2023 Patient encounter status Ach 1 [facility] Start: 02-17-2023 End: 02-17-2023 Evaluation and management of inpatient Ach Xr Portable 2 [facility] Comment on above: Arrived Start: 02-15-2023 End: 02-15-2023 Evaluation and management of inpatient Ach Xr Portable 2 [facility] Comment on above: Arrived Start: 02-10-2023 End: 02-10-2023 Evaluation and management of inpatient Ach Xr Portable 1 [facility] Comment on above: Arrived Start: 02-10-2023 End: 02-10-2023 Evaluation and management of inpatient Ach Xr Portable 1 [facility] Comment on above: Arrived Start: 02-09-2023 End: 02-09-2023 Evaluation and management of inpatient Ach Xr Portable 1 [facility] Comment on above: Arrived Start: 02-09-2023 End: 02-09-2023 Evaluation and management of inpatient Ach Xr Portable 1 [facility] Comment on above: Arrived Start: 02-09-2023 End: 02-09-2023 Evaluation and management of inpatient Ach Xr Portable 1 [facility] Comment on above: Arrived Start: 02-06-2023 End: 02-06-2023 Evaluation and management of inpatient Ach Xr Portable 1 [facility] Comment on above: Arrived Start: 02-05-2023 End: 02-05-2023 Evaluation and management of inpatient Ach Xr Portable 1 [facility] Comment on above: Arrived Start: 02-05-2023 End: 02-26-2023 Evaluation and management of inpatient Madeline Figueroa MD Work Phone: [facility] Start: 02-05-2023 End: 02-26-2023 Patient encounter status Madeline Figueroa MD Work Phone: [facility] Start: 01-26-2022 End: 01-26-2022 Emergency department patient visit Santo Sales MD Work Phone: [facility] Emergency Dept Comment on above: Dental abscess (Prim ismael Dx); Dental infection Procedures Date Procedure Procedure Detail Performing Clinician Start: 03-19-2025 Ct abdomen & pelvis w/o contrast material Radha Olguin MD Work Phone: Start: 03-11-2025 Radiologic exam abdomen 1 view Marycarmen Pati Melisa SOCCER REFEREE - [employer] CRACKING SUPERVISOR Work Phone: Start: 01-23-2024 Ecg routine ecg w/least 12 lds trcg only w/o i&r Luke Jaimeo DO Work Phone: Start: 11-03-2023 Radiologic exam abdomen 1 view Amol Kemp SOCCER REFEREE - ETHYLBENZENE CRACKING SUPERVISOR Work Phone: Start: 11-03-2023 Radiologic exam chest single view Amol Oatesner SOCCER REFEREE - ETHYLBENZENE CRACKING SUPERVISOR Work Phone: Start: 11-03-2023 Perq replacement gtube not req revj gstrst trc Amol Kemp SOCCER REFEREE - ETHYLBENZ[employer] CRACKING SUPERVISOR Work Phone: Start: 04-11-2023 Radiologic exam abdomen 1 view Maryann Jones DO Work Phone: Start: 03-10-2023 Radex hip unilateral with pelvis 2-3 views Marin Damico MD Work Phone: Start: 03-09-2023 End: 03-09-2023 Basic metabolic panel calcium total Daren Hart MD Work Phone: Start: 03-08-2023 SARS-CoV-2 (COVID-19) Ag [Presence] in Respiratory specimen by Rapid immunoassay Marin Damico MD Work Phone: Start: 03-08-2023 Basic metabolic panel calcium total Daren Hart MD Work Phone: Start: 03-07-2023 End: 03-07-2023 Basic metabolic panel calcium total Daren Hart MD Work Phone: Start: 03-07-2023 Drug screen quantitative vancomycin Narsimha Mae Kodakandla MD Work Phone: Start: 03-06-2023 Us abdominal real time w/image limited Burke Faith MD Work Phone: Start: 03-06-2023 Comprehensive metabolic panel Burke Faith MD Work Phone: Start: 03-05-2023 Ct thorax w/contrast material Miguel Kaplan MD Work Phone: Start: 03-05-2023 Iadna respiratry probe & rev trnscr 12-25 target Miguel Kaplan MD Work Phone: Start: 03-05-2023 Bacteria identified in Blood by Culture Miguel Kaplan MD Work Phone: Start: 03-05-2023 Comprehensive metabolic panel Miguel Kaplan MD Work Phone: Start: 03-04-2023 Assay of troponin quantitative Maryann Jones DO Work Phone: Start: 03-04-2023 Ct angiography chest w/contrast/noncontrast Maryann Jones DO Work Phone: Start: 03-04-2023 Radiologic exam chest single view Maryann Jones DO Work Phone: Start: 03-04-2023 Basic metabolic panel calcium total Maryann Jones DO Work Phone: Start: 03-04-2023 Ecg routine ecg w/least 12 lds trcg only w/o i&r Maryann Jones DO Work Phone: Start: 02-25-2023 SARS-CoV-2 (COVID-19) Ag [Presence] in Respiratory specimen by Rapid immunoassay Sarah Beth Travis Work Phone: Start: 02-25-2023 Comprehensive metabolic panel Sarah Randall SOCCER REFEREE - ETHYLBENZENE CRACKING SUPERVISOR Work Phone: Start: 02-24-2023 Comprehensive metabolic panel Sarah Randall SOCCER REFEREE - ETHYLBENZENE CRACKING SUPERVISOR Work Phone: Start: 02-23-2023 Radiologic exam chest 2 views Sarah Beth Travis Work Phone: Start: 02-23-2023 Comprehensive metabolic panel Sarah Lehman-Estephanie SOCCER REFEREE - [employer]EN[employer] CRACKING SUPERVISOR Work Phone: Start: 02-22-2023 Comprehensive metabolic panel Sarah Berrodin-Estephanie SOCCER REFEREE - ETHYLBENZENE CRACKING SUPERVISOR Work Phone: Start: 02-21-2023 Radiologic exam chest single view Sherrill Mae MD Work Phone: Start: 02-21-2023 End: 02-21-2023 Comprehensive metabolic panel Sarah Berrodin-Estephanie SOCCER REFEREE - ETHYLBENZENE CRACKING SUPERVISOR Work Phone: Start: 02-20-2023 Comprehensive metabolic panel Sarah Berrodin-Estephanie SOCCER REFEREE - ETHYLBENZENE CRACKING SUPERVISOR Work Phone: Start: 02-19-2023 Comprehensive metabolic panel Sarah Berrodin-Estephanie SOCCER REFEREE - ETHYLBENZENE CRACKING SUPERVISOR Work Phone: Start: 02-18-2023 Comprehensive metabolic panel Sarah Ricoodin-Estephanie SOCCER REFEREE - ETHYLBENZENE CRACKING SUPERVISOR Work Phone: Start: 02-17-2023 Radiologic exam chest single view Sarah Ricoodin-Estephanie SOCCER REFEREE - ETHYLBENZ[employer] CRACKING SUPERVISOR Work Phone: Start: 02-17-2023 Comprehensive metabolic panel Cris Harman SOCCER REFEREE - ETHYLBENZENE CRACKING SUPERVISOR Work Phone: Start: 02-16-2023 Assay of osmolality blood Sarah RicoodinRashawnEstephanie SOCCER REFEREE - ETHYLBENZENE CRACKING SUPERVISOR Work Phone: Start: 02-16-2023 Guidance for placement of G-tube in Gastrointestinal tract upper Cody Felix MD Work Phone: Start: 02-16-2023 Ct abdomen & pelvis w/o contrast material Sarah Ricoodin-Estephanie SOCCER REFEREE - ETHY[employer]ENZENE CRACKING SUPERVISOR Work Phone: Start: 02-16-2023 Us abdominal real time w/image limited Sarah Ricoodin-Estephanie SOCCER REFEREE - ETHYLBENZENE CRACKING SUPERVISOR Work Phone: Start: 02-16-2023 Acute hepatitis panel Sarah Ricoodin-Estephanie SOCCER REFEREE - ETHYLBENZENE CRACKING SUPERVISOR Work Phone: Start: 02-16-2023 Assay of osmolality blood Sarah Randall SOCCER REFEREE - ETHYLBENZENE CRACKING SUPERVISOR Work Phone: Start: 02-16-2023 Comprehensive metabolic panel Cris Harman SOCCER REFEREE - ETHYLBENZENE CRACKING SUPERVISOR Work Phone: Start: 02-15-2023 Assay of osmolality blood Sarah Randall SOCCER REFEREE - ETHYLBENZENE CRACKING SUPERVISOR Work Phone: Start: 02-15-2023 Assay of osmolality blood Sarah Randall SOCCER REFEREE - ETHYLBENZENE CRACKING SUPERVISOR Work Phone: Start: 02-15-2023 Ct head/brain w/o contrast material Bibi Eddy SOCCER REFEREE - ETHYLBENZENE CRACKING SUPERVISOR Work Phone: Start: 02-15-2023 Radiologic exam chest single view Bibi Eddy SOCCER REFEREE - ETHYLBENZENE CRACKING SUPERVISOR Work Phone: Start: 02-14-2023 End: 02-15-2023 Comprehensive metabolic panel Cris Harman SOCCER REFEREE - ETHYLBENZENE CRACKING SUPERVISOR Work Phone: Start: 02-14-2023 Comprehensive metabolic panel Cris Harman SOCCER REFEREE - ETHYLBENZENE CRACKING SUPERVISOR Work Phone: Start: 02-13-2023 Assay of osmolality blood Cris Harman A PRN - ETHYLBENZENE CRACKING SUPERVISOR Work Phone: Start: 02-13-2023 Assay of osmolality blood Cris Harman A PRN - ETHYLBENZENE CRACKING SUPERVISOR Work Phone: Start: 02-13-2023 Hepatic function panel Sarah Lehman-Estephanie SOCCER REFEREE - ETHYLBENZENE CRACKING SUPERVISOR Work Phone: Start: 02-13-2023 Ct head/brain w/o contrast material Marian Flores MD Work Phone: Start: 02-13-2023 Comprehensive metabolic panel Cris Harman SOCCER REFEREE - ETHYLBENZENE CRACKING SUPERVISOR Work Phone: Start: 02-12-2023 Assay of osmolality blood Cris Harman A PRN - ETHYLBENZENE CRACKING SUPERVISOR Work Phone: Start: 02-12-2023 Dup-scan xtr veins complete bilateral study Marian Flores MD Work Phone: Start: 02-12-2023 Assay of osmolality blood Cirs Harman A PRN - ETHYLBENZENE CRACKING SUPERVISOR Work Phone: Start: 02-12-2023 Ct head/brain w/o contrast material Bibi Eddy SOCCER REFEREE - ETHYLBENZENE CRACKING SUPERVISOR Work Phone: Start: 02-12-2023 Comprehensive metabolic panel Cris Harman SOCCER REFEREE - ETHYLBENZENE CRACKING SUPERVISOR Work Phone: Start: 02-11-2023 Assay of osmolality blood Cris Harman A PRN - ETHYLBENZENE CRACKING SUPERVISOR Work Phone: Start: 02-11-2023 Sodium serum plasma or whole blood Cris Harman SOCCER REFEREE - ETHYLBENZENE CRACKING SUPERVISOR Work Phone: Start: 02-11-2023 Comprehensive metabolic panel Eli Wires SOCCER REFEREE - CHILDREN'S COUNSELOR Work Phone: Start: 02-10-2023 Sodium serum plasma or whole blood Cris Harman SOCCER REFEREE - ETHYLBENZENE CRACKING SUPERVISOR Work Phone: Start: 02-10-2023 Mri brain brain stem w/o contrast material Bibi Eddy SOCCER REFEREE - ETHYLBENZENE CRACKING SUPERVISOR Work Phone: Start: 02-10-2023 Radiologic exam abdomen 1 view Cris Harman SOCCER REFEREE - ETHYLBENZENE CRACKING SUPERVISOR Work Phone: Start: 02-10-2023 Sodium serum plasma or whole blood Cris Harman SOCCER REFEREE - ETHYLBENZENE CRACKING SUPERVISOR Work Phone: Start: 02-10-2023 Radiologic exam abdomen 1 view Horace Garcia MD Work Phone: Start: 02-10-2023 Comprehensive metabolic panel Eli Wires SOCCER REFEREE - CHILDREN'S COUNSELOR Work Phone: Start: 02-09-2023 Sodium serum plasma or whole blood Cris Harman SOCCER REFEREE - ETHYLBENZENE CRACKING SUPERVISOR Work Phone: Start: 02-09-2023 Radiologic exam chest single view Sarah Randall SOCCER REFEREE - ETHYLBENZENE CRACKING SUPERVISOR Work Phone: Start: 02-09-2023 End: 02-09-2023 Radiologic exam abdomen 1 view Bibi Eddy SOCCER REFEREE - ETHYLBENZENE CRACKING SUPERVISOR Work Phone: Start: 02-09-2023 Echo transesophag r-t 2d w/prb img acquisj i&r Bibi Eddy SOCCER REFEREE - ETHYLBENZENE CRACKING SUPERVISOR Work Phone: Start: 02-09-2023 Sodium serum plasma or whole blood Sarah Randall SOCCER REFEREE - ETHYLBENZENE CRACKING SUPERVISOR Work Phone: Start: 02-09-2023 Comprehensive metabolic panel Eli Wires SOCCER REFEREE - CHILDREN'S COUNSELOR Work Phone: Start: 02-08-2023 Sodium serum plasma or whole blood Cris Harman SOCCER REFEREE - ETHYLBENZENE CRACKING SUPERVISOR Work Phone: Start: 02-08-2023 Comprehensive metabolic panel Eli Wires SOCCER REFEREE - CHILDREN'S COUNSELOR Work Phone: Start: 02-07-2023 Assay of magnesium Sarah Randall SOCCER REFEREE - ETHYLBENZENE CRACKING SUPERVISOR Work Phone: Start: 02-07-2023 Sodium serum plasma or whole blood Eli Wires SOCCER REFEREE - CHILDREN'S COUNSELOR Work Phone: Start: 02-07-2023 TTE w or wo fol wcAlice jorge MD Work Phone: Start: 02-07-2023 Sodium serum plasma or whole blood Eli Wires SOCCER REFEREE - CHILDREN'S COUNSELOR Work Phone: Start: 02-07-2023 Comprehensive metabolic panel Eli Wires SOCCER REFEREE - CHILDREN'S COUNSELOR Work Phone: Start: 02-07-2023 Ct head/brain w/o contrast material Samson Camarena MD Work Phone: Start: 02-06-2023 Sodium serum plasma or whole blood Eli Wires SOCCER REFEREE - CHILDREN'S COUNSELOR Work Phone: Start: 02-06-2023 Sodium serum plasma or whole blood Eli Wires SOCCER REFEREE - CHILDREN'S COUNSELOR Work Phone: Start: 02-06-2023 Radiologic exam abdomen 1 view Samson Camarena MD Work Phone: Start: 02-06-2023 Creatine kinase total Eli Wires SOCCER REFEREE - CHILDREN'S COUNSELOR Work Phone: Start: 02-06-2023 Ct head/brain w/o contrast material Samson Camarena MD Work Phone: Start: 02-06-2023 Comprehensive metabolic panel Eli Wires SOCCER REFEREE - CHILDREN'S COUNSELOR Work Phone: Start: 02-06-2023 Lipid panel Eli Wires SOCCER REFEREE - CHILDREN'S COUNSELOR Work Phone: Start: 02-06-2023 Lipid 1996 panel - Serum or Plasma Ach 1 Start: 02-05-2023 Sodium serum plasma or whole blood Eli Wires SOCCER REFEREE - CHILDREN'S COUNSELOR Work Phone: Start: 02-05-2023 Comprehensive metabolic panel Eli Wires SOCCER REFEREE - CHILDREN'S COUNSELOR Work Phone: Start: 02-05-2023 Radiologic exam chest single view Ruby Saenz MD Work Phone: Start: 02-05-2023 Ecg routine ecg w/least 12 lds trcg only w/o i&r Samson Camarena MD Work Phone: Start: 02-05-[address] w/blood flow&volume Ruby Saenz MD Work Phone: Start: 02-05-2023 Ct angiography head w/contrast/noncontrast Ruby Saenz MD Work Phone: Start: 02-05-2023 POCT GLUCOSE METER Ruby Saenz MD Work Phone: Start: 02-05-2023 Ecg routine ecg w/least 12 lds i&r only Ruby Saenz MD Work Phone: Start: 02-05-2023 End: 02-05-2023 Comprehensive cedric panel Ruby Saenz MD Work Phone: Start: 01-26-2022 Ct maxillofacial w/contrast material Santo Sales MD Work Phone: Start: 01-26-2022 Comprehensive metabolic panel Santo Sales MD Work Phone: Start: 03-17-2017 History of coronary artery bypass grafting History of coronary artery bypass graft x 2 Ach 1 Start: 04-07-2014 History of coronary artery bypass grafting History of coronary artery bypass graft x 2 Santo Sales MD Work Phone: H/O: gastrostomy Gastrostomy sta tus ([facility]) Omega Flores Work Phone: History of coronary artery bypass grafting History of coronary artery bypass graft x 2 Amol Peterson MD Work Phone: Plan of Treatment Date Care Activity Detail Author Start: 02-07-2028 Lipid panel [facility] Start: 07-08-2025 Influenza vaccination Influenza Vaccine (Season Ended) [facility] Start: 11-07-2024 Medicare Advantage Annual Wellness Visit Medicare Advantage Annual Wellness Visit [facility] Start: 07-08-2024 COVID-19 Vaccine ( season) COVID-19 Vaccine ( season) [facility] Start: 07-08-2024 COVID-19 Vaccine ( season) COVID-19 Vaccine ( season) [facility] [facility] Start: 07-08-2024 Influenza vaccination [facility] Start: 06-21-2024 End: 06-21-2025 Home sleep test Home sleep test Sleep Center Routine Obstructive sleep apnea Expected: 06/21/2024 (Approximate), Expires: 06/21/2025 [facility] Work Phone: Comment on above: Expected: 06/21/2024 (Approximate), Expi res: 06/21/2025 Start: 06-21-2024 End: 06-21-2024 Patient encounter procedure 06/21/2024 11:00 AM EDT Office Visit [facility] [address] [place] [id number] Rachael Malhotra, PATRICK - JACLYN [address] [place] [address] [facility] Start: 03-30-2024 End: 03-30-2025 Ear cerumen removal Ear cerumen removal Procedures Routine Bilateral impacted cerumen Expected: 03/30/2024 (Approximate), Expires: 03/30/2025 [employer] Work Phone: Comment on above: Expected: 03/30/2024 (Approximate), Expi res: 03/30/2025 Start: 03-30-2024 End: 03-30-2024 Patient encounter procedure 03/30/2024 10:45 AM EDT Office Visit [facility] [employer] [facility] [address] [place] [address] Shira Garcia MD [address] [place] [address] [facility] [employer] [facility] Start: 02-07-2024 Diabetes mellitus screening [facility] Start: 01-23-2024 End: 01-22-2025 CBC panel - Blood by Automated count CBC Lab Routine History of coronary artery bypass graft x 2 Expected: 01/23/2024 (Approximate), Expires: 01/22/[facility]25 [facility] on above: Expected: 01/23/2024 (Approximate), Expi res: 01/22/2025 Start: 01-23-2024 End: 01-22-2025 Comprehensive metabolic 1998 panel - Serum or Plasma Comprehensive metabolic panel Lab Routine History of coronary artery bypass graft x 2 Expected: 01/23/2024 (Approximate), Expires: 01/22/2025 [facility] Work Phone: Comment on above: Expected: 01/23/2024 (Approximate), Expi res: 01/22/2025 Start: 01-23-2024 End: 01-22-2025 Lipid 1996 panel - Serum or Plasma Lipid panel Lab Routine History of coronary artery bypass graft x 2 Expected: 01/23/2024 (Approximate), Expires: 01/22/2025 [facility] Comment on above: Expected: 01/23/2024 (Approximate), Expi res: 01/22/2025 Start: 01-23-2024 End: 01-22-2025 Lipoprotein a [Mass/volume] in Serum or Plasma Lipoprotein A (LPA) Lab Routine Hyperlipidemia, unspecified hyperlipidemia type Coronary artery disease involving [place] coronary artery of [place] heart without angina pectoris Expected: 01/23/2024 (Approximate), Expires: 01/22/2025 [facility] Comment on above: Expected: 01/23/2024 (Approximate), Expi res: 01/22/2025 Start: 12-28-2023 End: 12-28-2023 Admission to same day surgery center [facility] Endoscopy Comment on above: ESOPHAGOGASTRODUODENOSCOPY [64018 (CPT ) ] Start: 12-28-2023 End: 12-28-2023 Esophagogastroduodenoscopy transoral diagnostic [facility] Gastroenterology Start: 12-28-2023 Subsequent hospital visit by physician [facility] Endoscopy Start: 12-21-2023 End: 12-21-2023 Patient encounter procedure 12/21/2023 1:00 PM EST Office Visit [facility] [address] [place] [address] Rachael Malhotra APRN - ETHYLBENZENE CRACKING SUPERVISOR [address] [place] [address] [facility] Start: 11-21-2023 End: 11-21-2023 Patient encounter procedure 11/21/2023 8:00 AM EST Office Visit [facility] Gastroenterology [address] [place] [phone] Isabela De Leon APRN - ETHYLBENZENE CRACKING SUPERVISOR [address] [address] [facility] Gastroenter[facility] Start: 11-18-2023 End: 11-18-2023 Telemedicine consultation with patient 11/18/2023 11:00 AM EST Telemedicine [facility] [address] [place] [phone] Rachael Malhotra APRN - ETHYLBENZ[employer] CRACKING SUPERVISOR [address] [place], [place] [id number] [facility] Start: 11-07-2023 Medicare Advantage Annual Wellness Visit Medicare Advantage Annual Wellness Visit [facility] Start: 07-08-2023 COVID-19 Vaccine ( season) COVID-19 Vaccine ( season) [facility] Start: 07-08-2023 Influenza vaccination [facility] Start: 07-08-2023 [facility] Start: 04-20-2023 End: 04-20-2024 RF videography Hypopharynx and Esophagus Views for swallowing function W speech and W barium contrast PO FL modified barium with video and speech Imaging Routine Dysphagia, oropharyngeal phase Expected: 04/20/2023, Expires: 04/20/2024 [facility] Work Phone: Comment on above: Expected: 04/20/2023, Expires: Start: 03-12-2023 End: 03-10-2024 Basic metabolic 1998 panel - Serum or Plasma Basic metabolic panel Lab Routine Hypokalemia Expected: 03/12/2023 (Approximate), Expires: 03/10/2024 [facility] Work Phone: Comment on above: Expected: 03/12/2023 (Approximate), Expi res: 03/10/2024 Start: 03-11-2023 End: 03-11-2023 ambulatory [facility] Start: 03-11-2023 End: 03-11-2023 Patient encounter procedure 03/11/2023 Office Visit Neurology Rachael Malhotra, PATRICK - ETHYLBENZENE CRACKING SUPERVISOR [address] [place] [address] [facility] Start: 01-26-2023 Creatinine measurement Creatinine monitoring [facility] Start: 01-26-2023 Potassium monitoring Potassium monitoring [facility] Start: 07-08-2021 Influenza vaccination Flu vaccine (#1) [facility] Start: 2020 Abdominal aortic aneurysm screening AAA screen [facility] Start: 2020 Pneumococcal 65+ years Vaccine (1 of 1 - PPSV23) Pneumococcal 65+ years Vaccine (1 of 1 - PPSV23) [facility] Start: 04-30-2018 Lipid panel Lipid screen [facility] Start: 04-13-2018 Screening for malignant neoplasm of lung Low dose CT lung screening [facility] Start: 2015 RSV Immunization aged 60 or older (1 - 1-dose 60+ series) RSV Immunization aged 60 or older (1 - 1-dose 60+ series) [facility] Start: 2015 RSV Immunization for Adults (1 - Risk 60-74 years 1-dose series) RSV Immunization for Adults (1 - Risk 60-74 years 1-dose series) [facility] Start: 2005 Shingles Vaccine (1 of 2) Shingles Vaccine (1 of 2) [facility] Start: 2005 Zoster Vaccines (1 of 2) Zoster Vaccines (1 of 2) [facility] Start: 2005 [facility] Start: 2000 Screening for malignant neoplasm of colon [facility] Start: 1974 DTaP/Tdap/Td vaccine (1 - Tdap) DTaP/Tdap/Td vaccine (1 - Tdap) [facility] Start: 1974 DTaP/Tdap/Td Vaccines (1 - Tdap) DTaP/Tdap/Td Vaccines (1 - Tdap) [facility] Start: 1974 Pneumococcal Vaccine: 50+ Years (1 of 2 - PCV) Pneumococcal Vaccine: 50+ Years (1 of 2 - PCV) [facility] Start: 1974 [facility] Start: 1973 Hepatitis C screening Hepatitis C Screening [facility] Start: 1967 Depression Screen Depression Screen [facility] Start: 1967 Depression Screening Depression Screening [facility] Start: 1961 Pneumococcal Vaccine: 65+ Years (1 - PCV) Pneumococcal Vaccine: 65+ Years (1 - PCV) [facility] Start: 1961 Pneumococcal Vaccine: 65+ Years (1 of 2 - PCV) Pneumococcal Vaccine: 65+ Years (1 of 2 - PCV) [facility] Start: 1961 [facility] Start: 1960 COVID-19 Vaccine (1) COVID-19 Vaccine (1) [facility] Start: 03-26-1956 COVID-19 Vaccine (#1) COVID-19 Vaccine (#1) [facility] Start: 03-26-1956 [facility] Start: 1955 Hepatitis B Vaccines (1 of 3 - 3-dose series) Hepatitis B Vaccines (1 of 3 - 3-dose series) [facility] Start: 1955 Hepatitis C screening Hepatitis C screen [facility] Start: 1955 Medicare Advantage Annual Wellness Visit (AWV) Medicare Advantage Annual Wellness Visit (AWV) [employer] Start: 1955 Screening for malignant neoplasm of colon [employer] Start: 1955 [employer] ECG 12 lead (Now) ECG 12 lead (N ow) CV ECG STAT 03/04/2023 5:44 PM EDT [employer] Work Phone: ECG 12 lead - CLINIC PERFORMED E CG 12 lead - CLINIC PERFORMED CV ECG Routine Hyperlipidemia, unspecified hyperlipidemia type 01/23/2024 1:13 PM EDT [employer] Work Phone: End: 02-11-2023 Hemoglobin.gastrointestinal.low er [Presence] in Stool by Immunoassay --1st specimen [employer] Work Phone: Tissue exam [employer] Work Phone: Comment on above: Release Upon Ordering for 1 Occurrences starting 12/28/2023 End: 03-19-2025 Urinalysis complete panel - Urine Urinalysis complete with reflex to Culture Lab STAT STAT (Lab) for 1 Occurrences starting 03/19/2025 until 03/19/2025 [employer] Work Phone: Comment on above: STAT (Lab) for 1 Occurrences starting until 03/19/2025 Payers Date Payer Category Payer Self-pay 2024 Medicaid [id number] 2023 Medicaid O [id number] 2023 Unknown [id number] 2023 Medicare O Revenew ALHAJI N [id number] 2023 Unknown [id number] 2023 Medicaid [id number] 2021 Medicare [id number] Unknown [id number] Unknown [id number] Unknown [id number] Unknown [id number] Unknown [id number] Social History Date Type Detail Facility Start: 03-17-1975 Tobacco smoking status NMIS Smokes tobacco daily [employer] Work Phone: Start: 03-17-1975 History of tobacco use Cigarette Smoker [employer] Work Phone: Start: 03-17-2017 End: 03-11-2025 Cigarettes smoked current (pack per day) - Reported 1 [employer] Work Phone: Start: 01-26-2022 End: 04-18-2023 Alcohol intake Current drinker of alcohol (finding) [facility] Work Phone: Start: 03-17-2017 History SDOH Alcohol Comment occasionally [employer] Work Phone: Start: 1955 Sex Assigned At Not on file [employer] Work Phone: Start: 01-16-2022 End: 07-19-2023 Exposure to SARS-CoV-2 (event) Not sure [facility] Start: 04-11-2023 History SDOH Alcohol Frequency 1 [facility] Start: 04-11-2023 History SDOH Alcohol Std Drinks 0 [facility] Start: 04-10-2023 End: 03-11-2025 Alcohol Use Disorder Identification Test - Consumption [AUDIT-C] [facility] How often to you hav e a drink containing alcohol? Never [facility] How many standard dr inks containing alcohol do you have on a typical day? Patient does not drink [facility] Start: 11-21-2023 End: 01-23-2024 Tobacco smoking status NHIS Ex-smoker [facility] Start: 03-17-1975 History of tobacco use Current smoker [facility] Start: 11-21-2023 End: 03-11-2025 Alcohol intake Ex-drinker (finding) [facility] Start: 1955 Sex Assigned At Male [facility] Start: 06-07-2022 Sex Male (finding) [facility] Clinical Notes 01-26-2022 to 03-19-2025 Michael Ferreira RN - 03/19/2025 3:32 AM EDTMichael Ferreira RN - 03/19/2025 3:32 AM Nirmala Ferreira RN - 03/19/2025 3:22 AM EDErika Ferreira RN - 03/19/2025 1:25 AM EDTDischarge Instructions Note Date & Type Note Facility 03-19-2025 Emergency department Note Report to Deuce Valadez at bedside. Pt packaged for transport back to [facility]. [facility] 03-19-2025 Emergency department Note Report to Deuce Valadez at bedside. Pt packaged for transport back to [facility]. Dr. Olguin discussed fecal disimpaction/ enema. Pt adamantly refuses. Downtime charting 0125 - Attempted straight cath for UA which was unsuccessful. Pt adamantly refuses another try. Dr. Olguin updated Pt is refusing blood work/PIV. Pt agreed to x-ray and UA. EMERGENCY DEPARTMENT ENCOUNTER Pt Name: Catina Land Birthdate 1955 Date of evaluation: 03/18/2025 ED Provider: Radha Olguin MD CHIEF COMPLAINT Chief Complaint Patient presents with Vomiting G-tube; g-tube plastic bumper not flush against skin upon arrival. Pt denying nausea at this time. HISTORY OF PRESENT ILLNESS (Location/Symptom, Timing/Onset, Context/Setting, Quality, Duration, Modifying Factors, Severity) Note limiting factors. I wore appropriate PPE for the entirety of this encounter. HPI Catina Land is a 69 y.o. who presents to the emergency department with vomiting. Patient sent from senior care. Has a history of stroke with right-sided hemiaplasia. He is nonverbal at baseline but can nod yes or shake his head no to questions. Patient denies any abdominal pain. He denies any nausea currently. Does have a G-tube in place and does get continuous feeds. EMS report was limited. Patient is refusing IV, lab work. He would allow me to get a CT scan without contrast as well as a urine sample but otherwise is saying no to everything else. Nursing Notes were reviewed. Limitations to history: Nonverbal Outside historians: None REVIEW OF SYSTEMS Review of Systems Pertinent positives and negatives as per HPI. 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 Do not start before February 21, 2023. APIXABAN (ELIQUIS) 5 MG TABLET Take 1 tablet (5 mg) by mouth 2 times daily. Do not start before March 17, 2023. ATORVASTATIN (LIPITOR) 40 MG TABLET 1 tablet (40 mg) by Per G Tube route daily. CARVEDILOL (COREG) 25 MG TABLET 1 tablet (25 mg) by Per G Tube route in the morning and 1 tablet (25 mg) in the evening. Take with meals. ESCITALOPRAM (LEXAPRO) 5 MG TABLET GABAPENTIN PO Take 200 mg by mouth in the morning and 200 mg in the evening. LORATADINE (CLARITIN REDITABS) 10 MG DISINTEGRATING TABLET Take 10 mg by mouth daily. MELATONIN 5 MG TABLET Take 1 tablet (5 mg) by mouth Nightly as needed (sleep). METOCLOPRAMIDE (REGLAN) 5 MG TABLET Take 5 mg by mouth 3 times daily. OXYGEN (O2) GAS Inhale 2 L/min continuous. via nasal canula PANTOPRAZOLE (PROTONIX) 40 MG EC TABLET 40 mg 2 times daily. POTASSIUM CHLORIDE 20 MEQ/15ML (10%) SOLUTION 10 mEq daily. ALLERGIES Bee venom and Erythromycin FAMILY HISTORY Family History Problem Relation Name Age of Onset Coronary artery disease Mother Cancer Mother Cancer Father Colon cancer Mother's Brother SOCIAL HISTORY Social History Socioeconomic History Marital status: Single Tobacco Use Smoking status: Former Current packs/day: 1.00 Average packs/day: 1 pack/day for 50.0 years (50.0 ttl pk-yrs) Types: Cigarettes Start date: 03/17/1975 Vaping Use Vaping status: Never Used Substance and Sexual Activity Alcohol use: Not Currently Drug use: No SCREENINGS PHYSICAL EXAM ED Triage Vitals Temp Heart Rate Resp BP 03/18/25234403/18/25234403/18/25234403/18/252344 36.6 C (97.8 F) 61 16 116/58 SpO2 Temp Source Heart Rate Source Patient Position 03/18/25234403/18/25234403/18/25234403/18/252345 94 % Temporal Monitor Sitting BP Location FiO2 (%) 03/18/252345 -- Left arm Physical Exam Vital Signs: Reviewed Constitutional: No acute distress Head: Normocephalic, atraumatic Eyes: No scleral injection, no scleral icterus, no conjunctival erythema ENT: Oropharynx clear, MMM Neck: Supple, trachea midline Cardiovascular: RRR, no m/r/g Pulmonary: No evidence of labored breathing, clear to auscultation bilaterally Abdominal: Soft, nontender, mild distention, G-tube in place in the epigastric area Extremities: Warm, well perfused, no edema Neurological: Alert, shakes his head or nods his head for questions, right-sided hemiparesis Skin: Warm, dry, no rash DIAGNOSTIC RESULTS RADIOLOGY (Per Emergency Physician): Interpretation per the Radiologist below, if available at the time of this note: CT abdomen pelvis wo IV contrast Final Result 1. Fecal impaction the rectum 2. Tiny nonobstructing right renal calculus. Report Dictated on Electronically Signed By: Paul Kumar MD Electronically Signed Date/Time: 03/19/2025 1:24 AM EDT LABS: Labs Reviewed COMPLETE URINALYSIS WITH REFLEX TO CULTURE All other labs were within normal range or not returned as of this dictation. EMERGENCY DEPARTMENT COURSE and DIFFERENTIAL DIAGNOSIS/MDM: Vitals: Vitals: 03/18/25234403/18/25234503/18/252349 BP: 116/58 116/58 BP Location: Left arm Patient Position: Sitting Pulse: 61 61 Resp: 16 16 Temp: 36.6 C (97.8 F) 36.6 C (97.8 F) TempSrc: Temporal Temporal SpO2: 94% 94% 94% The patient presented with a chief complaint of nausea and vomiting. The differential diagnosis associated with this patient's presentation includes bowel obstruction, constipation, colitis, gastritis. Our workup consisted of ordering/reviewing CT scan. Patient presented with reported vomiting. On arrival here however he denied any abdominal pain or nausea or vomiting. His abdomen seemed a little bit distended but otherwise exam was unremarkable. Patient refused majority of the workup. He only allowed me to do imaging but without contrast. I had ordered a urine because there was some report of his urine being foul-smelling but when they tried to straight cath they were unable to get this sample and patient then subsequently refused any further attempts. His CT scan did show fecal impaction. I spoke to the patient about a disimpaction or an enema which patient adamantly said no to. At this point patient does not appear to have any obstruction or any obvious surgical or infectious process. He will be discharged back to senior care. I did include recommendations that patient have an increased bowel regimen or an enema if he is willing at the senior care. Diagnoses as of 03/19/25326 Nausea and vomiting, unspecified vomiting type Fecal impaction (CMS/HCC) ([facility]) External records reviewed: none Diagnostics interpreted by me: none Discussions with other clinicians: none Chronic conditions impacting care: none Social determinants of health affecting care: none ED Medications managed: Medications - No data to display Prescription drugs considered: PROCEDURES: Unless otherwise noted below, none Procedures FINAL IMPRESSION 1. Nausea and vomiting, unspecified vomiting type 2. Fecal impaction (CMS/HCC) ([facility]) DISPOSITION Discharge 03/19/2025 03:25:16 AM PATIENT REFERRED TO: Kelsey Stevens MD [address] [place] [address] [address] [place] [id number] Schedule an appointment as soon as possible for a visit DISCHARGE MEDICATIONS: New Prescriptions No medications on file (Comment: Please note this report has been produced using speech recognition software and may contain errors related to that system including errors in grammar, punctuation, and spelling, as well as words and phrases that may be inappropriate. If there are any questions or concerns please feel free to contact the dictating provider for clarification.) Radha Olguin MD (electronically signed) Emergency Medicine Provider Radha Olguin MD 03/19/25326 Pt presents to ED via [facility] from [facility] d/t complaint of g-tube issues/vomiting and possible UTI. EMS reports pt is non-verbal at baseline, but able to answer questions/thumbs up/down. VSS during transport. documented in this encounter [facility] 03-19-2025 Hospital Discharg e instructions Radha Olguin MD - 03/19/2025 3:25 AM EDT Patient should receive either an enema or increase bowel regimen but refused anything here in the ED. The following attachments cannot be sent through Care Everywhere.Fecal Impaction (Moroccan)Nausea and Vomiting, Adult ED (Moroccan)documented in this encounter [facility] 03-19-[address] Olguin discussed fecal disimpaction/ enema. Pt adamantly refuses. [facility] 03-19-2025 Emergency department Note Downtime charting 0125 - Attempted straight cath for UA which was unsuccessful. Pt adamantly refuses another try. Dr. Olguin updated [facility] 03-19-2025 Emergency department Note Pt is refusing blood work/PIV. Pt agreed to x-ray and UA. [facility] 03-18-2025 Emergency department Triage note Pt presents to ED via [facility] from [facility] d/t complaint of g-tube issues/vomiting and possible UTI. EMS reports pt is non-verbal at baseline, but able to answer questions/thumbs up/down. VSS during transport. [facility] 03-18-2025 Physician Emergency department Note EMERGENCY DEPARTMENT ENCOUNTER Pt Name: Catina Land Birthdate 1955 Date of evaluation: 03/18/2025 ED Provider: Radha Olguin MD CHIEF COMPLAINT Chief Complaint Patient presents with Vomiting G-tube; g-tube plastic bumper not flush against skin upon arrival. Pt denying nausea at this time. HISTORY OF PRESENT ILLNESS (Location/Symptom, Timing/Onset, Context/Setting, Quality, Duration, Modifying Factors, Severity) Note limiting factors. I wore appropriate PPE for the entirety of this encounter. HPI Catina Land is a 69 y.o. who presents to the emergency department with vomiting. Patient sent from senior care. Has a history of stroke with right-sided hemiaplasia. He is nonverbal at baseline but can nod yes or shake his head no to questions. Patient denies any abdominal pain. He denies any nausea currently. Does have a G-tube in place and does get continuous feeds. EMS report was limited. Patient is refusing IV, lab work. He would allow me to get a CT scan without contrast as well as a urine sample but otherwise is saying no to everything else. Nursing Notes were reviewed. Limitations to history: Nonverbal Outside historians: None REVIEW OF SYSTEMS Review of Systems Pertinent positives and negatives as per HPI. 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 Do not start before February 21, 2023. APIXABAN (ELIQUIS) 5 MG TABLET Take 1 tablet (5 mg) by mouth 2 times daily. Do not start before March 17, 2023. ATORVASTATIN (LIPITOR) 40 MG TABLET 1 tablet (40 mg) by Per G Tube route daily. CARVEDILOL (COREG) 25 MG TABLET 1 tablet (25 mg) by Per G Tube route in the morning and 1 tablet (25 mg) in the evening. Take with meals. ESCITALOPRAM (LEXAPRO) 5 MG TABLET GABAPENTIN PO Take 200 mg by mouth in the morning and 200 mg in the evening. LORATADINE (CLARITIN REDITABS) 10 MG DISINTEGRATING TABLET Take 10 mg by mouth daily. MELATONIN 5 MG TABLET Take 1 tablet (5 mg) by mouth Nightly as needed (sleep). METOCLOPRAMIDE (REGLAN) 5 MG TABLET Take 5 mg by mouth 3 times daily. OXYGEN (O2) GAS Inhale 2 L/min continuous. via nasal canula PANTOPRAZOLE (PROTONIX) 40 MG EC TABLET 40 mg 2 times daily. POTASSIUM CHLORIDE 20 MEQ/15ML (10%) SOLUTION 10 mEq daily. ALLERGIES Bee venom and Erythromycin FAMILY HISTORY Family History Problem Relation Name Age of Onset Coronary artery disease Mother Cancer Mother Cancer Father Colon cancer Mother's Brother SOCIAL HISTORY Social History Socioeconomic History Marital status: Single Tobacco Use Smoking status: Former Current packs/day: 1.00 Average packs/day: 1 pack/day for 50.0 years (50.0 ttl pk-yrs) Types: Cigarettes Start date: 03/17/1975 Vaping Use Vaping status: Never Used Substance and Sexual Activity Alcohol use: Not Currently Drug use: No SCREENINGS PHYSICAL EXAM ED Triage Vitals Temp Heart Rate Resp BP 03/18/25234403/18/25234403/18/25234403/18/252344 36.6 C (97.8 F) 61 16 116/58 SpO2 Temp Source Heart Rate Source Patient Position 03/18/25234403/18/25234403/18/25234403/18/252345 94 % Temporal Monitor Sitting BP Location FiO2 (%) 03/18/252345 -- Left arm Physical Exam Vital Signs: Reviewed Constitutional: No acute distress Head: Normocephalic, atraumatic Eyes: No scleral injection, no scleral icterus, no conjunctival erythema ENT: Oropharynx clear, MMM Neck: Supple, trachea midline Cardiovascular: RRR, no m/r/g Pulmonary: No evidence of labored breathing, clear to auscultation bilaterally Abdominal: Soft, nontender, mild distention, G-tube in place in the epigastric area Extremities: Warm, well perfused, no edema Neurological: Alert, shakes his head or nods his head for questions, right-sided hemiparesis Skin: Warm, dry, no rash DIAGNOSTIC RESULTS RADIOLOGY (Per Emergency Physician): Interpretation per the Radiologist below, if available at the time of this note: CT abdomen pelvis wo IV contrast Final Result 1. Fecal impaction the rectum 2. Tiny nonobstructing right renal calculus. Report Dictated on Electronically Signed By: Paul Kumar MD Electronically Signed Date/Time: 03/19/2025 1:24 AM EDT LABS: Labs Reviewed COMPLETE URINALYSIS WITH REFLEX TO CULTURE All other labs were within normal range or not returned as of this dictation. EMERGENCY DEPARTMENT COURSE and DIFFERENTIAL DIAGNOSIS/MDM: Vitals: Vitals: 03/18/25 2345 03/18/25 2346 03/18/25 2350 BP: 116/58 116/58 BP Location: Left arm Patient Position: Sitting Pulse: 61 61 Resp: 16 16 Temp: 36.6 C (97.8 F) 36.6 C (97.8 F) TempSrc: Temporal Temporal SpO2: 94% 94% 94% The patient presented with a chief complaint of nausea and vomiting. The differential diagnosis associated with this patient's presentation includes bowel obstruction, constipation, colitis, gastritis. Our workup consisted of ordering/reviewing CT scan. Patient presented with reported vomiting. On arrival here however he denied any abdominal pain or nausea or vomiting. His abdomen seemed a little bit distended but otherwise exam was unremarkable. Patient refused majority of the workup. He only allowed me to do imaging but without contrast. I had ordered a urine because there was some report of his urine being foul-smelling but when they tried to straight cath they were unable to get this sample and patient then subsequently refused any further attempts. His CT scan did show fecal impaction. I spoke to the patient about a disimpaction or an enema which patient adamantly said no to. At this point patient does not appear to have any obstruction or any obvious surgical or infectious process. He will be discharged back to senior care. I did include recommendations that patient have an increased bowel regimen or an enema if he is willing at the senior care. Diagnoses as of 03/19/25 0327 Nausea and vomiting, unspecified vomiting type Fecal impaction (CMS/HCC) ([facility]) External records reviewed: none Diagnostics interpreted by me: none Discussions with other clinicians: none Chronic conditions impacting care: none Social determinants of health affecting care: none ED Medications managed: Medications - No data to display Prescription drugs considered: PROCEDURES: Unless otherwise noted below, none Procedures FINAL IMPRESSION 1. Nausea and vomiting, unspecified vomiting type 2. Fecal impaction (CMS/HCC) ([facility]) DISPOSITION Discharge 03/19/2025 03:25:16 AM PATIENT REFERRED TO: Kelsey Stevens MD [address] [place] [address] [address] [facility] [phone] Schedule an appointment as soon as possible for a visit DISCHARGE MEDICATIONS: New Prescriptions No medications on file (Comment: Please note this report has been produced using speech recognition software and may contain errors related to that system including errors in grammar, punctuation, and spelling, as well as words and phrases that may be inappropriate. If there are any questions or concerns please feel free to contact the dictating provider for clarification.) Radha Olguin MD (electronically signed) Emergency Medicine Provider Radha Olguin MD 03/19/25326 [facility] 03-11-2025 Emergency department Note Transportation here to take patient back to Nursing Facility. [facility] 03-11-2025 Emergency department Note Transportation here to take patient back to Nursing Facility. Called report to nurse Davida at [facility]. Advised of Gastric feeding tube replacement and transport obtained for patient back to facility. Emergency Department Encounter [facility] ED Patient: Catina Land : 1955 Date of Evaluation: 03/11/2025 ED Supervising Physician: Santo Sales MD I independently examined and evaluated Catina Land. This will serve as my Supervisory note and shared attestation. I did perform a substantive portion of the visit including all aspects of the Medical Decision Making. I wore appropriate PPE for the entirety of this encounter. History: In brief, Catina Land is a 69 y.o. male that presents to the emergency department for replacement of a feeding tube. Patient had the feeding tube removed earlier today. He is sent here from [facility] with a replacement tube. Focused exam: On examination the patient is an older male found lying on a cart. He is in no acute distress. There is no respiratory compromise. A size 18 tube is replaced. This was easily done. This was done under my supervision. Differential Diagnosis: Differential diagnosis is feeding tube replacement. ED testing and evaluation will be obtained to help differentiate these diagnostic possibilities and determine the most likely cause. Diagnostic testing undertaken, as well as those tests considered but not ordered: Gastrografin will be placed to ensure adequate placement. Brief ED course/MDM: In the emergency department the patient was initially evaluated with a history and physical examination. Further diagnostic testing and therapeutic care was based on this initial assessment. The patient will be subsequently discharged back to the [facility]. Sources of History: I evaluated other historical sources including previous outpatient records and admission records. Patient is aware of care plan. All diagnostic, treatment, and disposition decisions were made by myself in conjunction with the [facility]. For all further details of the patient's emergency department visit, please see their documentation. (Comment: Please note this report has been produced using speech recognition software and may contain errors related to that system including errors in grammar, punctuation, and spelling, as well as words and phrases that may be inappropriate. If there are any questions or concerns please feel free to contact the dictating provider for clarification.) Santo Sales MD [facility] Santo Sales MD 03/11/25 1402 Images from the original note were not included. EMERGENCY DEPARTMENT ENCOUNTER Pt Name: Catina Land Birthdate 1955 Date of evaluation: 03/11/2025 ED Provider: Marycarmen Vincent APRN - [facility] EDcare was supervised by Dr. Sales who independently examined and evaluated the patient. Please see their attestation note for further details. CHIEF COMPLAINT Chief Complaint Patient presents with Feeding Tube Feeding tube displaced HISTORY OF PRESENT ILLNESS (Location/Symptom, Timing/Onset, Context/Setting, Quality, Duration, Modifying Factors, Severity) Note limiting factors. I wore appropriate PPE for the entirety of this encounter. HPI Catina Land is a 69 y.o. who presents to the emergency department for displaced gastrostomy tube. Patient arrives from nursing facility via EMS. Per report tube was noted to be displaced earlier this morning. Chart review reveals that tube has been in place since January 2023. Patient denies headache, lightheadedness, dizziness, fever, chills, visual disturbances, chest pain, palpitations, shortness of breath, cough, abdominal pain, nausea, vomiting, diarrhea, constipation. Denies dysuria, hematuria, or polyuria. Nursing Notes were reviewed. Limitations to history: None Outside historians: None REVIEW OF SYSTEMS Review of Systems Pertinent positives and negatives as per HPI. 13 systems reviewed as detailed above. 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 Do not start before February 21, 2023. APIXABAN (ELIQUIS) 5 MG TABLET Take 1 tablet (5 mg) by mouth 2 times daily. Do not start before March 17, 2023. ATORVASTATIN (LIPITOR) 40 MG TABLET 1 tablet (40 mg) by Per G Tube route daily. CARVEDILOL (COREG) 25 MG TABLET 1 tablet (25 mg) by Per G Tube route in the morning and 1 tablet (25 mg) in the evening. Take with meals. ESCITALOPRAM (LEXAPRO) 5 MG TABLET GABAPENTIN PO Take 200 mg by mouth in the morning and 200 mg in the evening. LORATADINE (CLARITIN REDITABS) 10 MG DISINTEGRATING TABLET Take 10 mg by mouth daily. MELATONIN 5 MG TABLET Take 1 tablet (5 mg) by mouth Nightly as needed (sleep). METOCLOPRAMIDE (REGLAN) 5 MG TABLET Take 5 mg by mouth 3 times daily. OXYGEN (O2) GAS Inhale 2 L/min continuous. via nasal canula PANTOPRAZOLE (PROTONIX) 40 MG EC TABLET 40 mg 2 times daily. POTASSIUM CHLORIDE 20 MEQ/15ML (10%) SOLUTION 10 mEq daily. ALLERGIES Bee venom and Erythromycin FAMILY HISTORY Family History Problem Relation Name Age of Onset Coronary artery disease Mother Cancer Mother Cancer Father Colon cancer Mother's Brother SOCIAL HISTORY Social History Socioeconomic History Marital status: Single Tobacco Use Smoking status: Former Current packs/day: 1.00 Average packs/day: 1 pack/day for 50.0 years (50.0 ttl pk-yrs) Types: Cigarettes Start date: 03/17/1975 Vaping Use Vaping status: Never Used Substance and Sexual Activity Alcohol use: Not Currently Drug use: No SCREENINGS Sam Coma Scale Best Eye Response: To verbal stimuli Best Verbal Response: Incomprehensible sounds Best Motor Response: Withdraws to pain Benton Coma Scale Score: 9 PHYSICAL EXAM ED Triage Vitals [03/11/25 1206] Temp Heart Rate Resp BP 36.3 C (97.4 F) 58 12 (!) 142/68 SpO2 Temp Source Heart Rate Source Patient Position 95 % Oral Monitor Lying BP Location FiO2 (%) Left arm -- Physical Exam Vitals and nursing note reviewed. Constitutional: General: He is not in acute distress. Appearance: He is well-developed. HENT: Head: Normocephalic and atraumatic. Eyes: Conjunctiva/sclera: Conjunctivae normal. Cardiovascular: Rate and Rhythm: Normal rate and regular rhythm. Heart sounds: No murmur heard. Pulmonary: Effort: Pulmonary effort is normal. No respiratory distress. Breath sounds: Normal breath sounds. Abdominal: General: The ostomy site is clean. Palpations: Abdomen is soft. Tenderness: There is no abdominal tenderness. Comments: Well-healed gastrostomy site noted to upper abdomen. No discharge from site. No bleeding. No surrounding erythema. No induration. Musculoskeletal: General: No swelling. Cervical back: Neck supple. Skin: General: Skin is warm and dry. Capillary Refill: Capillary refill takes less than 2 seconds. Neurological: Mental Status: He is alert. Mental status is at baseline. Comments: Known, pre-existing right-sided deficit due to CVA. Nonverbal at baseline, however able to communicate appropriately via gestures. Psychiatric: Mood and Affect: Mood normal. DIAGNOSTIC RESULTS RADIOLOGY (Per Emergency Physician): Interpretation per the Radiologist below, if available at the time of this note: XR abdomen 1 view Final Result Contrast outlines the gastric lumen, consistent with satisfactory position of the PEG tube. Report Dictated on Electronically Signed By: Cayden Rowell MD Electronically Signed Date/Time: 03/11/2025 1:14 PM EDT LABS: Labs Reviewed - No data to display All other labs were within normal range or not returned as of this dictation. EMERGENCY DEPARTMENT COURSE and DIFFERENTIAL DIAGNOSIS/MDM: Vitals: Vitals: 03/11/25 1206 BP: (!) 142/68 BP Location: Left arm Patient Position: Lying Pulse: 58 Resp: 12 Temp: 36.3 C (97.4 F) TempSrc: Oral SpO2: 95% Weight: 72.6 kg (160 lb) Height: 1.753 m (5' 9") Medications diatrizoate meglumine-sodium (Gastrografin) 66-10 % solution 30 mL (30 mL Oral Given 03/11/25 1250) MDM elements: The patient presented with chief complaint of dislodged gastrostomy tube. The differential diagnosis associated with this patient's presentation includes dislodged gastrostomy tube, from his gastrostomy site, intra-abdominal infection, abdominal infiltrates. Our workup consisted of ordering/reviewing: A thorough physical exam was performed as detailed above. New gastrostomy tube placed by Baljinder Kemp APRN, see his procedure note for more details. KUB with Gastrografin obtained to confirm placement, placement appropriate on radiograph. Patient will be discharged back to nursing facility. I discussed their care with Dr. Sales, ED attending, who performed an independent evaluation of the patient and is in agreement with plan of care and disposition. Please see their note for further detail.. The patient will be Discharged. Patient is in agreement with this plan. PROCEDURES: Unless otherwise noted below, none Procedures CRITICAL CARE TIME None FINAL IMPRESSION 1. PEG (percutaneous endoscopic gastrostomy) adjustment/replacement/removal ([facility]) DISPOSITION Discharge 03/11/2025 01:23:39 PM PATIENT REFERRED TO: Kelsey Stevens MD [address] [place] [address] [address] [facility] [id number] Schedule an appointment as soon as possible for a visit As needed DISCHARGE MEDICATIONS: New Prescriptions No medications on file (Comment: Please note this report has been produced using speech recognition software and may contain errors related to that system including errors in grammar, punctuation, and spelling, as well as words and phrases that may be inappropriate. If there are any questions or concerns please feel free to contact the dictating provider for clarification.) PATRICK Ballard CNP (electronically signed) Emergency Medicine Provider PATRICK Ren CNP 03/11/25 1329 Procedure note: Supervised by Dr. Santo Sales, PEG tube placement, 18 FR Gastrostomy tube placed, placement will be confirmed with gastrograffin xray. PATRICK Hamm CNP 03/11/25 1311 Cosigned by Santo Sales MD at 03/11/2025 1:59 PM EDT Patient arrives via EMS from Nursing Facility. This morning patients feeding tube displaced and he was sent to the ED today to have it replaced. documented in this encounter [facility] 03-11-2025 Emergency department Note Called report to nurse Davida at [facility]. Advised of Gastric feeding tube replacement and transport obtained for patient back to facility. [facility] 03-11-2025 Hospital Discharg e instructions PATRICK Ren CNP - 03/11/2025 1:24 PM EDT In the medical field, there is always a level of diagnostic uncertainty, even if this uncertainty is low. For this reason, it is important to immediately return to the emergency department if you have any new symptoms, worsening symptoms, change of symptoms, or if you have any other concerns. We would be happy to re-evaluate you. Otherwise, please take your medications as prescribed and follow-up as recommended. The following attachments cannot be sent through Care Everywhere.How to Care for Your Gastrostomy Tube (Moroccan)documented in this encounter [facility] 03-11-2025 Emergency department Triage note Patient arrives via EMS from Nursing Facility. This morning patients feeding tube displaced and he was sent to the ED today to have it replaced. [facility] 03-11-2025 Note Procedure note: Supervised by Dr. Santo Sales, PEG tube placement, 18 FR Gastrostomy tube placed, placement will be confirmed with gastrograffin xray. PATRICK Hamm CNP 03/11/25 1311 [facility] 03-11-2025 Physician Emergency department Note Emergency Department Encounter [facility] ED Patient: Catina Land : 1955 Date of Evaluation: 03/11/2025 ED Supervising Physician: Santo Sales MD I independently examined and evaluated Catina Land. This will serve as my Supervisory note and shared attestation. I did perform a substantive portion of the visit including all aspects of the Medical Decision Making. I wore appropriate PPE for the entirety of this encounter. History: In brief, Catina Land is a 69 y.o. male that presents to the emergency department for replacement of a feeding tube. Patient had the feeding tube removed earlier today. He is sent here from [facility] with a replacement tube. Focused exam: On examination the patient is an older male found lying on a cart. He is in no acute distress. There is no respiratory compromise. A size 18 tube is replaced. This was easily done. This was done under my supervision. Differential Diagnosis: Differential diagnosis is feeding tube replacement. ED testing and evaluation will be obtained to help differentiate these diagnostic possibilities and determine the most likely cause. Diagnostic testing undertaken, as well as those tests considered but not ordered: Gastrografin will be placed to ensure adequate placement. Brief ED course/MDM: In the emergency department the patient was initially evaluated with a history and physical examination. Further diagnostic testing and therapeutic care was based on this initial assessment. The patient will be subsequently discharged back to the [facility]. Sources of History: I evaluated other historical sources including previous outpatient records and admission records. Patient is aware of care plan. All diagnostic, treatment, and disposition decisions were made by myself in conjunction with the [facility]. For all further details of the patient's emergency department visit, please see their documentation. (Comment: Please note this report has been produced using speech recognition software and may contain errors related to that system including errors in grammar, punctuation, and spelling, as well as words and phrases that may be inappropriate. If there are any questions or concerns please feel free to contact the dictating provider for clarification.) Santo Sales MD [employer] Santo Sales MD 03/11/25 1404 [employer] Phone: 03-11-2025 Physician Emergency department Note Images from the original note were not included. EMERGENCY DEPARTMENT ENCOUNTER Pt Name: Catina Land Birthdate 1955 Date of evaluation: 03/11/2025 ED Provider: PATRICK Ballard CNP EDcare was supervised by Dr. Sales who independently examined and evaluated the patient. Please see their attestation note for further details. CHIEF COMPLAINT Chief Complaint Patient presents with Feeding Tube Feeding tube displaced HISTORY OF PRESENT ILLNESS (Location/Symptom, Timing/Onset, Context/Setting, Quality, Duration, Modifying Factors, Severity) Note limiting factors. I wore appropriate PPE for the entirety of this encounter. HPI Catina Land is a 69 y.o. who presents to the emergency department for displaced gastrostomy tube. Patient arrives from nursing facility via EMS. Per report tube was noted to be displaced earlier this morning. Chart review reveals that tube has been in place since January 2023. Patient denies headache, lightheadedness, dizziness, fever, chills, visual disturbances, chest pain, palpitations, shortness of breath, cough, abdominal pain, nausea, vomiting, diarrhea, constipation. Denies dysuria, hematuria, or polyuria. Nursing Notes were reviewed. Limitations to history: None Outside historians: None REVIEW OF SYSTEMS Review of Systems Pertinent positives and negatives as per HPI. 13 systems reviewed as detailed above. 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 Do not start before February 21, 2023. APIXABAN (ELIQUIS) 5 MG TABLET Take 1 tablet (5 mg) by mouth 2 times daily. Do not start before March 17, 2023. ATORVASTATIN (LIPITOR) 40 MG TABLET 1 tablet (40 mg) by Per G Tube route daily. CARVEDILOL (COREG) 25 MG TABLET 1 tablet (25 mg) by Per G Tube route in the morning and 1 tablet (25 mg) in the evening. Take with meals. ESCITALOPRAM (LEXAPRO) 5 MG TABLET GABAPENTIN PO Take 200 mg by mouth in the morning and 200 mg in the evening. LORATADINE (CLARITIN REDITABS) 10 MG DISINTEGRATING TABLET Take 10 mg by mouth daily. MELATONIN 5 MG TABLET Take 1 tablet (5 mg) by mouth Nightly as needed (sleep). METOCLOPRAMIDE (REGLAN) 5 MG TABLET Take 5 mg by mouth 3 times daily. OXYGEN (O2) GAS Inhale 2 L/min continuous. via nasal canula PANTOPRAZOLE (PROTONIX) 40 MG EC TABLET 40 mg 2 times daily. POTASSIUM CHLORIDE 20 MEQ/15ML (10%) SOLUTION 10 mEq daily. ALLERGIES Bee venom and Erythromycin FAMILY HISTORY Family History Problem Relation Name Age of Onset Coronary artery disease Mother Cancer Mother Cancer Father Colon cancer Mother's Brother SOCIAL HISTORY Social History Socioeconomic History Marital status: Single Tobacco Use Smoking status: Former Current packs/day: 1.00 Average packs/day: 1 pack/day for 50.0 years (50.0 ttl pk-yrs) Types: Cigarettes Start date: 03/17/1975 Vaping Use Vaping status: Never Used Substance and Sexual Activity Alcohol use: Not Currently Drug use: No SCREENINGS Benton Coma Scale Best Eye Response: To verbal stimuli Best Verbal Response: Incomprehensible sounds Best Motor Response: Withdraws to pain Benton Coma Scale Score: 9 PHYSICAL EXAM ED Triage Vitals [03/11/25 1206] Temp Heart Rate Resp BP 36.3 C (97.4 F) 58 12 (!) 142/68 SpO2 Temp Source Heart Rate Source Patient Position 95 % Oral Monitor Lying BP Location FiO2 (%) Left arm -- Physical Exam Vitals and nursing note reviewed. Constitutional: General: He is not in acute distress. Appearance: He is well-developed. HENT: Head: Normocephalic and atraumatic. Eyes: Conjunctiva/sclera: Conjunctivae normal. Cardiovascular: Rate and Rhythm: Normal rate and regular rhythm. Heart sounds: No murmur heard. Pulmonary: Effort: Pulmonary effort is normal. No respiratory distress. Breath sounds: Normal breath sounds. Abdominal: General: The ostomy site is clean. Palpations: Abdomen is soft. Tenderness: There is no abdominal tenderness. Comments: Well-healed gastrostomy site noted to upper abdomen. No discharge from site. No bleeding. No surrounding erythema. No induration. Musculoskeletal: General: No swelling. Cervical back: Neck supple. Skin: General: Skin is warm and dry. Capillary Refill: Capillary refill takes less than 2 seconds. Neurological: Mental Status: He is alert. Mental status is at baseline. Comments: Known, pre-existing right-sided deficit due to CVA. Nonverbal at baseline, however able to communicate appropriately via gestures. Psychiatric: Mood and Affect: Mood normal. DIAGNOSTIC RESULTS RADIOLOGY (Per Emergency Physician): Interpretation per the Radiologist below, if available at the time of this note: XR abdomen 1 view Final Result Contrast outlines the gastric lumen, consistent with satisfactory position of the PEG tube. Report Dictated on Electronically Signed By: Cayden Rowell MD Electronically Signed Date/Time: 03/11/2025 1:14 PM EDT LABS: Labs Reviewed - No data to display All other labs were within normal range or not returned as of this dictation. EMERGENCY DEPARTMENT COURSE and DIFFERENTIAL DIAGNOSIS/MDM: Vitals: Vitals: 03/11/25 1206 BP: (!) 142/68 BP Location: Left arm Patient Position: Lying Pulse: 58 Resp: 12 Temp: 36.3 C (97.4 F) TempSrc: Oral SpO2: 95% Weight: 72.6 kg (160 lb) Height: 1.753 m (5' 9") Medications diatrizoate meglumine-sodium (Gastrografin) 66-10 % solution 30 mL (30 mL Oral Given 03/11/25 1250) MDM elements: The patient presented with chief complaint of dislodged gastrostomy tube. The differential diagnosis associated with this patient's presentation includes dislodged gastrostomy tube, from his gastrostomy site, intra-abdominal infection, abdominal infiltrates. Our workup consisted of ordering/reviewing: A thorough physical exam was performed as detailed above. New gastrostomy tube placed by Baljinder Kemp APRN, see his procedure note for more details. KUB with Gastrografin obtained to confirm placement, placement appropriate on radiograph. Patient will be discharged back to nursing facility. I discussed their care with Dr. Sales, ED attending, who performed an independent evaluation of the patient and is in agreement with plan of care and disposition. Please see their note for further detail.. The patient will be Discharged. Patient is in agreement with this plan. PROCEDURES: Unless otherwise noted below, none Procedures CRITICAL CARE TIME None FINAL IMPRESSION 1. PEG (percutaneous endoscopic gastrostomy) adjustment/replacement/removal ([facility]) DISPOSITION Discharge 03/11/2025 01:23:39 PM PATIENT REFERRED TO: Kelsey Stevens MD [address] [place] [address] [address] [place] [phone] Schedule an appointment as soon as possible for a visit As needed DISCHARGE MEDICATIONS: New Prescriptions No medications on file (Comment: Please note this report has been produced using speech recognition software and may contain errors related to that system including errors in grammar, punctuation, and spelling, as well as words and phrases that may be inappropriate. If there are any questions or concerns please feel free to contact the dictating provider for clarification.) PATRICK Ballard CNP (electronically signed) Emergency Medicine Provider PATRICK Ren CNP 03/11/25 1329 [facility] 03-11-2025 Physician Emergency department Note Procedure note: Supervised by Dr. Santo Sales, PEG tube placement, 18 FR Gastrostomy tube placed, placement will be confirmed with gastrograffin xray. PATRICK Hamm CNP 03/11/25 1311 Cosigned by Santo Sales MD at 03/11/2025 1:59 PM EDT [facility] [employer] Phone: 09-19-2024 Note Unable to contact debra hollins. Referral for sleep study has been closed. [facility] 09-19-2024 Telephone encounter Note Unable to contact patient. Referral for sleep study has been closed. [facility] 09-19-2024 Miscellaneous Notes Unable to contact patient. Referral for sleep study has been closed. Call to patient. Lm on VM to call the office. Call to patient. Unable to Lm on Vm due to VM is not set up. Office will try patient's mobile number. Call to patient's mobile #. Lm on Vm to call the office. Please send patient to the back line when patient returns call. We have been unable to reach your patient to schedule their testing. Test Name: Home sleep test 1st Attempt: No voicemail set up, sent mychart 09/10/24 2nd Attempt: send mychart 09/14/24 documented in this encounter [facility] 09-17-2024 Telephone encounter Note Call to patient. Lm on VM to call the office. [facility] 09-17-2024 Miscellaneous Notes Call to patient. Lm on VM to call the office. Call to patient. Unable to Lm on Vm due to VM is not set up. Office will try patient's mobile number. Call to patient's mobile #. Lm on Vm to call the office. Please send patient to the back line when patient returns call. We have been unable to reach your patient to schedule their testing. Test Name: Home sleep test 1st Attempt: No voicemail set up, sent [employer] 09/10/24 2nd Attempt: send mychart 09/14/24 documented in this encounter [facility] 09-14-2024 Telephone encounter Note Call to patient. Unable to Lm on Vm due to VM is not set up. Office will try patient's mobile number. Call to patient's mobile #. Lm on Vm to call the office. Please send patient to the back line when patient returns call. [facility] 09-14-2024 Miscellaneous Notes Call to patient. Unable to Lm on Vm due to VM is not set up. Office will try patient's mobile number. Call to patient's mobile #. Lm on Vm to call the office. Please send patient to the back line when patient returns call. We have been unable to reach your patient to schedule their testing. Test Name: Home sleep test 1st Attempt: No voicemail set up, sent [employer] [facility] 09/10/24 2nd Attempt: send [employer] 09/14/24 documented in this encounter [facility] 09-14-2024 Telephone encounter Note We have been unable to reach your patient to schedule their testing. Test Name: Home sleep test 1st Attempt: No voicemail set up, sent [facility] 09/10/24 2nd Attempt: send mychart 09/14/24 [facility] 08-27-2024 Telephone encounter Note Call to patient. Lm on VM to call the office. Please inform patient of message below. Thank you. Sent patient a [employer] message informing patient. [facility] 08-27-2024 Miscellaneous Notes Call to patient. Lm on VM to call the office. Please inform patient of message below. Thank you. Sent patient a [employer] message informing patient. Call to patient. Unable to LM on Vm due to VM is not setup. Patient has not scheduled testing. Please inform patient to call sleep scheduling at [phone] to schedule sleep study that was ordered on 06/21/2024. documented in this encounter [facility] 08-24-2024 Telephone encounter Note Call to patient. Unable to LM on Vm due to VM is not setup. Patient has not scheduled testing. Please inform patient to call sleep scheduling at [phone] to schedule sleep study that was ordered on 06/21/2024. [facility] 06-21-2024 History of Presen t illness Narrative Visit type: Established Patient Reason for Visit: Follow-up and Stroke Assessment and Plan 1. Ischemic stroke (HCC) 2. Atrial thrombus 3. Dysphagia as late effect of stroke 4. Obstructive sleep apnea - Home sleep test 5. Aphasia Subjective HPI: February 2023 left MCA stroke CESARIO showed left atrial appendage thrombus-on Eliquis STOPBANG 04/14 He was seen by Dr. Redle-plan is to continue Eliquis. No need to repeat imaging He is here with a niece and great niece He is able to communicate answers to questions but when asked yes or no he answered yes He is still dealing with N&V He is getting some therapies Full assist Has PEG tube REVIEW OF SYSTEMS: Review of Systems Constitutional: Negative. HENT: Positive for trouble swallowing. Eyes: Negative. Respiratory: Negative. Cardiovascular: Negative. Gastrointestinal: Positive for nausea. Has PEG tube Endocrine: Negative. Genitourinary: Negative. Musculoskeletal: Negative. Skin: Negative. Allergic/Immunologic: Negative. Neurological: Positive for speech difficulty and weakness. Hematological: Negative. Psychiatric/Behavioral: Negative. Allergies Allergen Reactions Bee Venom Anaphylaxis Erythromycin Itching Outpatient Medications Prior to Visit Medication Sig Dispense Refill amLODIPine (Norvasc) 10 MG tablet Take 1 tablet (10 mg) by mouth daily. Do not start before February 21, 2023. 30 tablet 0 apixaban (Eliquis) 5 MG tablet Take 1 tablet (5 mg) by mouth 2 times daily. Do not start before March 17, 2023. 60 tablet 0 atorvastatin (Lipitor) 40 MG tablet 1 tablet (40 mg) by Per G Tube route daily. 30 tablet 2 carvedilol (Coreg) 25 MG tablet 1 tablet (25 mg) by Per G Tube route in the morning and 1 tablet (25 mg) in the evening. Take with meals. 60 tablet 0 escitalopram (Lexapro) 5 MG tablet GABAPENTIN PO Take 200 mg by mouth in the morning and 200 mg in the evening. loratadine (Claritin Reditabs) 10 MG disintegrating tablet Take 10 mg by mouth daily. melatonin 5 MG tablet Take 1 tablet (5 mg) by mouth Nightly as needed (sleep). 0 oxygen (O2) gas Inhale 2 L/min continuous. via nasal canula pantoprazole (ProtoNix) 40 MG EC tablet 40 mg 2 times daily. Potassium Chloride 20 MEQ/15ML (10%) solution 10 mEq daily. metoclopramide (Reglan) 5 MG tablet Take 5 mg by mouth 3 times daily. ipratropium-albuterol (Duo-Neb) 0.5-2.5 mg/3 mL nebulizer solution Take 3 mL by nebulization in the morning and 3 mL at noon and 3 mL in the evening. (Patient not taking: Reported on 06/21/2024) 180 mL 11 omeprazole (PriLOSEC) [address] capsule Take 1 capsule (40 mg) by mouth in the morning and 1 capsule (40 mg) in the evening. Do not crush or chew.. (Patient not taking: Reported on 06/21/2024) 60 capsule 3 No facility-administered medications prior to visit. 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, aphasia Third degree AV block (CMS/HCC) ([facility]) 03/28/2014 during inferior STEMI Social History Tobacco Use Smoking status: Former Current packs/day: 1.00 Average packs/day: 1 pack/day for 49.3 years (49.3 ttl pk-yrs) Types: Cigarettes Start date: 03/17/1975 Smokeless tobacco: Not on file Substance Use Topics Alcohol use: Not Currently Past Surgical History: Procedure Laterality Date CORONARY ANGIOPLASTY 03/28/2014 DANDY to prox RCA x 2 CORONARY ARTERY BYPASS GRAFT 04/2014 SENIOR-LAD, SVG-PD/RCA ESOPHAGOGASTRODUODENOSCOPY 12/28/2023 GASTROSTOMY TUBE PLACEMENT 01/2023 TONSILLECTOMY age 5 or 6 Family History Problem Relation Name Age of Onset Coronary artery disease Mother Cancer Mother Cancer Father Colon cancer Mother's Brother Objective Vitals: BP 101/62 (BP Location: Left arm, Patient Position: Sitting, BP Cuff Size: Adult) Pulse 76 General Appearance: Patient is in no apparent distress. Head is normocephalic, atraumatic Cardiovascular: Regular rate and rhythm. No heart murmurs. No carotid bruit Neurologic: Mentation: Alert Speech and Language: Only said yes Concentration and Attention: Could not test Memory: Could not test Fund of Knowledge: Could not test Cranial Nerves: II, III, IV, V, , VII, VIII, IX, X, XI, XII examined and were intact. Right facial droop- Motor: Strength: Right hemiplegia Cogwheel Rigidity: None Tone: Tone is rigid Tremor / Involuntary Movements: None Coordination: Could not be tested Gait and Station: Could not me tested Data Reviewed and Summarized DIAGNOSTIC TESTING CBC: Lab Results Component Value Date WBC 7.2 03/09/2023 RBC 4.15 (L) 03/09/2023 HGB 12.4 (L) 03/09/2023 HCT 38.1 (L) 03/09/2023 MCV 91.6 03/09/2023 MCH 29.8 03/09/2023 MCHC 32.6 03/09/2023 RDW 14.6 (H) 03/09/2023 PLT 231 03/09/2023 MPV 9.0 03/09/2023 CMP: Lab Results Component Value Date NA 142 03/09/2023 K 3.4 (L) 03/09/2023 CL 107 03/09/2023 CO2 32 (H) 03/09/2023 BUN 21 (H) 03/09/2023 CREATININE 0.73 03/09/2023 CREATININE 1.10 01/26/2022 GLUCOSE 97 03/09/2023 PROT 6.3 03/06/2023 CALCIUM 8.2 (L) 03/09/2023 BILITOT 1.0 03/06/2023 ALKPHOS 79 03/06/2023 AST 34 03/06/2023 ALT 43 03/06/2023 BMP: Lab Results Component Value Date NA 142 03/09/2023 K 3.4 (L) 03/09/2023 CL 107 03/09/2023 CO2 32 (H) 03/09/2023 BUN 21 (H) 03/09/2023 CREATININE 0.73 03/09/2023 CREATININE 1.10 01/26/2022 CALCIUM 8.2 (L) 03/09/2023 GLUCOSE 97 03/09/2023 PT/INR: Lab Results Component Value Date PROTIME 11.5 02/16/2023 INR 1.1 02/16/2023 PTT: Lab Results Component Value Date APTT 27.8 02/05/2023 [APTT} FLP: Lab Results Component Value Date TRIG 81 02/06/2023 HDL 36 (L) 02/06/2023 LDLCALC 87 02/06/2023 TSH: No results found for: "TSH" VITAMIN B12: No results found for: "FFMOVYCO35" No results found for: "PHENYTOIN", "PHENOBARB", "VALPROATE", "CBMZ" No components found for: "TOPIRA" @RESULTINGLABINFO@ No results found for: "LEVETIRACETA", "FERRITIN", "CRP", "JUDITH", "ANCA" No results found for: "JUANA", "IMMUNOGLOBUL", "OLIGOBANDS" HEPATITIS C VIRUS AB Date Value Ref Range Status 02/16/2023 Not Detected Not Detected Final Comment: Patients with DETECTED Hepatitis C Ab results should have a new specimen submitted for supplemental testing with a Hepatitis C Quantitative RNA assay (viral load), if clinically indicated. No results found for: "CRP", "ANATITER", "ANCA" FERRITIN: No results found for: FERRITIN ---- ECG 12 lead - CLINIC PERFORMED Sinus Rhythm Low voltage in precordial leads. -Negative T-waves -Possible Inferior ischemia. ABNORMAL @LASTAPPOINTMENTTHISPROV@ IMPRESSION and PLAN: Problem List Items Addressed This Visit None Visit Diagnoses Ischemic stroke (HCC) - Primary Atrial thrombus Dysphagia as late effect of stroke Obstructive sleep apnea Relevant Orders Home sleep test Aphasia He has established with Cardiology Continue Eliquis Continue with therapies Will order Home Sleep Test Sleep lab [phone] Will contact family after sleep study is completed to discuss No problem-specific Assessment & Plan notes found for this encounter. PATRICK Herron CNP I spent 30 minutes caring for this patient today, reviewing labs, records, seeing the patient, documenting in the record and arranging for studies. Electronically signed by @NUBIA@ on @TDNR@ at @NOWNR@ documented in this encounter [facility] 06-21-2024 Instructions PATRICK Serrano CNP - 06/21/2024 11:00 AM EDT He has established with Cardiology Tan Mackquis Continue with therapies Will order Home Sleep Test Sleep lab [phone] Will contact family after sleep study is completed to discuss documented in this encounter [facility] 03-30-2024 History of Presen t illness Narrative [facility] [address], [address] [facility] [address] Dept phone: [phone] Catina Land [id number] Assessment and Recommendations 1. Bilateral impacted cerumen 2. Normal nasopharyngeal exam Flexible laryngoscopy today - mild inferior turbinate hypertrophy. Septum midline.. Middle meatus patent without purulence, polyps, or swelling. No lesions or masses in the nasopharynx, oropharynx, base of tongue, vallecula, epiglottis, AE folds, piriforms, false cords or true cords. There is mild crusting in the nasopharynx. The vocal cords move well bilaterally. His family was not entirely sure what the reason for the referral was today, and to be honest I was in either. I suspect there was an abnormality noted on EGD but there is no documentation of this. Laryngoscopy today was unremarkable. Bilateral cerumen disimpaction. Follow-up 6 months for ear check Shira Garcia MD Subjective This is a 68 y.o. old male presenting with benign neoplasm of nasopharynx Accompanied by 2 family members. Patient recently had a stroke and has expressive aphasia. His 2 family members were not entirely certain why they were told to come to this appointment today. The referral came from the GI provider who performed the EGD earlier this year. The EGD report does not mention anything about a nasopharyngeal abnormality. We discussed that I suspect they saw something with the EGD and they wanted me to evaluate further. They also report he has been pointing at his right ear like it is plugged or bothering him. Medications Outpatient Medications Prior to Visit Medication Sig Dispense Refill apixaban (Eliquis) 5 MG tablet Take 1 tablet (5 mg) by mouth 2 times daily. Do not start before March 17, 2023. 60 tablet 0 escitalopram (Lexapro) 5 MG tablet GABAPENTIN PO Take 200 mg by mouth in the morning and 200 mg in the evening. melatonin 5 MG tablet Take 1 tablet (5 mg) by mouth Nightly as needed (sleep). 0 metoclopramide (Reglan) 5 MG tablet Take 5 mg by mouth 3 times daily. omeprazole (PriLOSEC) [address] capsule Take 1 capsule (40 mg) by mouth in the morning and 1 capsule (40 mg) in the evening. Do not crush or chew.. 60 capsule 3 oxygen (O2) gas Inhale 2 L/min continuous. via nasal canula pantoprazole (ProtoNix) 40 MG EC tablet 40 mg 2 times daily. Potassium Chloride 20 MEQ/15ML (10%) solution 10 mEq daily. amLODIPine (Norvasc) 10 MG tablet Take 1 tablet (10 mg) by mouth daily. Do not start before February 21, 2023. 30 tablet 0 atorvastatin (Lipitor) 40 MG tablet 1 tablet (40 mg) by Per G Tube route daily. 30 tablet 2 carvedilol (Coreg) 25 MG tablet 1 tablet (25 mg) by Per G Tube route in the morning and 1 tablet (25 mg) in the evening. Take with meals. 60 tablet 0 ipratropium-albuterol (Duo-Neb) 0.5-2.5 mg/3 mL nebulizer solution Take 3 mL by nebulization in the morning and 3 mL at noon and 3 mL in the evening. 180 mL 11 No facility-administered medications prior to visit. Allergies Allergies Allergen Reactions Bee Venom Anaphylaxis Erythromycin Itching Problem List Patient Active Problem List Diagnosis History of coronary artery bypass graft x 2 Hyperlipidemia Presence of stent in coronary artery CAD (coronary artery disease) [place], old Acute ischemic stroke (HCC) Arterial ischemic stroke, MCA (middle cerebral artery), left, acute (HCC) Brain compression (CMS/HCC) (HCC) Cerebral edema (CMS/HCC) (HCC) Troponin level elevated Cognitive impairment Debility Encounter for assessment of decision-making capacity Sepsis (HCC) SIRS (systemic inflammatory response syndrome) (HCC) Gastric peptic ulcer Esophageal ulcer Objective Physical Exam Constitutional - alert, no acute distress, non-toxic appearing. Voice - mildly weak, wet quality Face - normocephalic, atraumatic Ears - Right: normal auricle, canal without edema, cerumen impaction Left: normal auricle, canal without edema, cerumen impaction Respiratory - normal work of breathing on room air, no audible wheezing or stridor Results 12/28/23 EGD: Findings: LA Grade D (one or more mucosal breaks involving at least 75% of esophageal circumference) esophagitis with no bleeding was found. A 3 cm hiatal hernia was present. Many non-bleeding superficial gastric ulcers with no stigmata of bleeding were found in the gastric antrum. The largest lesion was 10 mm in largest dimension. Biopsies were taken with a cold forceps for histology. Biopsies were taken with a cold forceps for Helicobacter pylori testing. The exam was otherwise without abnormality.Peg balloon was on the anterior wall of the body. One non-bleeding superficial duodenal ulcer with no stigmata of bleeding was found in the first portion of the duodenum. The lesion was 10 mm in largest dimension. The second portion of the duodenum and third portion of the duodenum were normal. Biopsies were taken with a cold forceps for histology. Impression: - LA Grade D reflux esophagitis with no bleeding. - 3 cm hiatal hernia. - Non-bleeding gastric ulcers with no stigmata of bleeding. Biopsied. - The examination was otherwise normal. Peg balloon was on the anterior wall of the body. - Non-bleeding duodenal ulcer with no stigmata of bleeding. - Normal second portion of the duodenum and third portion of the duodenum. Biopsied. Recommendation: - Patient has a contact number available for emergencies. The signs and symptoms of potential delayed complications were discussed with the patient. Return to normal activities tomorrow. Written discharge instructions were provided to the patient. - Await pathology results. - No aspirin, ibuprofen, naproxen, or other non-steroidal anti-inflammatory drugs. - Continue present medications. - Start omperazole 40 mg twice daily 30 min before meals on an empty stomach. - Repeat EGD in 2 months to check for the ulcers' healing. - Resume previous diet. - Return to referring physician as previously Procedure Procedure: Flexible Laryngoscopy Indications: concern for nasopharyngeal lesion Procedure details: The risks, benefits, alternatives of the procedure were discussed and the patient elected to proceed. The flexible laryngoscope was advanced through the right side of the nose after application of topical anesthetic and decongestant. Examination of the nasal cavity, nasopharynx, oropharynx, larynx, and hypopharynx was performed. Patient tolerated the procedure well. There were no complications. Findings: mild inferior turbinate hypertrophy. Septum midline.. Middle meatus patent without purulence, polyps, or swelling. No lesions or masses in the nasopharynx, oropharynx, base of tongue, vallecula, epiglottis, AE folds, piriforms, false cords or true cords. There is mild crusting in the nasopharynx. The vocal cords move well bilaterally. Procedure: Procedure: bilateral cerumen disimpaction Indication: bilateral cerumen impaction Details: Risks, benefits, alternatives were discussed and the patient elected to proceed. The binocular microscope was used to examine the ear and cerumen was removed using size 7 suction, curette Findings: Right ear: large amount of soft cerumen. The underlying canal and tympanic membrane were normal. There was no middle ear disease. Left ear: The underlying canal and tympanic membrane were normal. There was no middle ear disease. documented in this encounter [facility] 02-19-2024 Telephone encounter Note We have been unable to reach your patient to schedule their testing. Test Name: FL modified barium with video and speech 1st atttempt//no show 7.5 and 8.22.23// cx 6.29 and 7.20.23//TE to office per directive// 6.14.24 KGK [facility] 02-19-2024 Miscellaneous Notes We have been unable to reach your patient to schedule their testing. Test Name: FL modified barium with video and speech 1st atttempt//no show 7.5 and 8.22.23// cx 6.29 and 7.20.23//TE to office per directive// 6.14.24 KGK documented in this encounter [facility] 01-23-2024 Instructions Amol Peterson MD - 01/23/2024 1:30 PM EDT Get labs CBC, CMP, lipid panel, Lp little a documented in this encounter [facility] 12-28-2023 Note Formatting of this n ote might be different from the original. [facility] Name: Catina Land Procedure Date: 12/28/2023 11:21 AM Gender: Male Date of : 1955 Age: 68 Admit Type: Outpatient Note Status: Finalized Endoscopist: Nisaashley Rodana , , [id number] Procedure: Upper GI endoscopy Indications: Dysphagia, Abdominal bloating Findings: LA Grade D (one or more mucosal breaks involving at least 75% of esophageal circumference) esophagitis with no bleeding was found. A 3 cm hiatal hernia was present. Many non-bleeding superficial gastric ulcers with no stigmata of bleeding were found in the gastric antrum. The largest lesion was 10 mm in largest dimension. Biopsies were taken with a cold forceps for histology. Biopsies were taken with a cold forceps for Helicobacter pylori testing. The exam was otherwise without abnormality.Peg balloon was on the anterior wall of the body. One non-bleeding superficial duodenal ulcer with no stigmata of bleeding was found in the first portion of the duodenum. The lesion was 10 mm in largest dimension. The second portion of the duodenum and third portion of the duodenum were normal. Biopsies were taken with a cold forceps for histology. Impression: - LA Grade D reflux esophagitis with no bleeding. - 3 cm hiatal hernia. - Non-bleeding gastric ulcers with no stigmata of bleeding. Biopsied. - The examination was otherwise normal. Peg balloon was on the anterior wall of the body. - Non-bleeding duodenal ulcer with no stigmata of bleeding. - Normal second portion of the duodenum and third portion of the duodenum. Biopsied. Recommendation: - Patient has a contact number available for emergencies. The signs and symptoms of potential delayed complications were discussed with the patient. Return to normal activities tomorrow. Written discharge instructions were provided to the patient. - Await pathology results. - No aspirin, ibuprofen, naproxen, or other non-steroidal anti-inflammatory drugs. - Continue present medications. - Start omperazole 40 mg twice daily 30 min before meals on an empty stomach. - Repeat EGD in 2 months to check for the ulcers' healing. - Resume previous diet. - Return to referring physician as previously scheduled. Referring MD: Teodoro Cameron MD CC Letter to: PCP Medicines: Monitored Anesthesia Care Procedure: Pre-Anesthesia Assessment: - Prior to the procedure, a History and Physical was performed, and patient medications and allergies were reviewed. The patient is competent. The risks and benefits of the procedure and the sedation options and risks were discussed with the patient. All questions were answered and informed consent was obtained. Patient identification and proposed procedure were verified by the physician, the nurse and the assembler molded frames in the pre-procedure area in the procedure room in the endoscopy suite. Mental Status Examination: normal. Airway Examination: normal oropharyngeal airway and neck mobility. Respiratory Examination: clear to auscultation. CV Examination: normal. Prophylactic Antibiotics: The patient does not require prophylactic antibiotics. Prior Anticoagulants: The patient has taken no anticoagulant or antiplatelet agents. ASA Grade Assessment: III - A patient with severe systemic disease. After reviewing the risks and benefits, the patient was deemed in satisfactory condition to undergo the procedure. The anesthesia plan was to use monitored anesthesia care (MAC). Immediately prior to administration of medications, the patient was re-assessed for adequacy to receive sedatives. The heart rate, respiratory rate, oxygen saturations, blood pressure, adequacy of pulmonary ventilation, and response to care were monitored throughout the procedure. The physical status of the patient was re-assessed after the procedure. After obtaining informed consent, the endoscope was passed under direct vision. Throughout the procedure, the patient's blood pressure, pulse, and oxygen saturations were monitored continuously. The Endoscope was introduced through the mouth, and advanced to the second part of duodenum. The upper GI endoscopy was accomplished with ease. The patient tolerated the procedure well. Complications: No immediate complications. Estimated blood loss: None. Procedure Code(s): --- Professional --- 54752, Esophagogastroduodenoscopy, flexible, transoral; with biopsy, single or multiple --- Technical --- 40184, Esophagogastroduodenoscopy, flexible, transoral; with biopsy, single or multiple Diagnosis Code(s): --- Professional --- K21.00, Gastro-esophageal reflux disease with esophagitis, without bleeding K44.9, Diaphragmatic hernia without obstruction or gangrene R13.10, Dysphagia, unspecified R14.0, Abdominal distension (gaseous) --- Technical --- K21.00, Gastro-esophageal reflux disease with esophagitis, without bleeding K44.9, Diaphragmatic hernia without obstruction or gangrene R13.10, Dysphagia, unspecified R14.0, Abdominal distension (gaseous) CPT copyright 2021 [employer]. All rights reserved. The codes documented in this report are preliminary and upon outpatient coder review may be revised to meet current compliance requirements. Attending Participation: I personally performed the entire procedure. Omega Flores, 12/28/2023 11:59:48 AM This report has been signed electronically. Number of Addenda: 0 Note Initiated On: 12/28/2023 11:21 AM [facility] 12-28-2023 Note Formatting of this n ote might be different from the original. [facility] Name: Catina Land Procedure Date: 12/28/2023 11:21 AM Gender: Male Date of : 1955 Age: 68 Admit Type: Outpatient Note Status: Finalized Endoscopist: Omega Flores , , [id number] Procedure: Upper GI endoscopy Indications: Dysphagia, Abdominal bloating Findings: LA Grade D (one or more mucosal breaks involving at least 75% of esophageal circumference) esophagitis with no bleeding was found. A 3 cm hiatal hernia was present. Many non-bleeding superficial gastric ulcers with no stigmata of bleeding were found in the gastric antrum. The largest lesion was 10 mm in largest dimension. Biopsies were taken with a cold forceps for histology. Biopsies were taken with a cold forceps for Helicobacter pylori testing. The exam was otherwise without abnormality.Peg balloon was on the anterior wall of the body. One non-bleeding superficial duodenal ulcer with no stigmata of bleeding was found in the first portion of the duodenum. The lesion was 10 mm in largest dimension. The second portion of the duodenum and third portion of the duodenum were normal. Biopsies were taken with a cold forceps for histology. Impression: - LA Grade D reflux esophagitis with no bleeding. - 3 cm hiatal hernia. - Non-bleeding gastric ulcers with no stigmata of bleeding. Biopsied. - The examination was otherwise normal. Peg balloon was on the anterior wall of the body. - Non-bleeding duodenal ulcer with no stigmata of bleeding. - Normal second portion of the duodenum and third portion of the duodenum. Biopsied. Recommendation: - Patient has a contact number available for emergencies. The signs and symptoms of potential delayed complications were discussed with the patient. Return to normal activities tomorrow. Written discharge instructions were provided to the patient. - Await pathology results. - No aspirin, ibuprofen, naproxen, or other non-steroidal anti-inflammatory drugs. - Continue present medications. - Start omperazole 40 mg twice daily 30 min before meals on an empty stomach. - Repeat EGD in 2 months to check for the ulcers' healing. - Resume previous diet. - Return to referring physician as previously scheduled. Referring MD: MD OLI Crooks Letter to: PCP Medicines: Monitored Anesthesia Care Procedure: Pre-Anesthesia Assessment: - Prior to the procedure, a History and Physical was performed, and patient medications and allergies were reviewed. The patient is competent. The risks and benefits of the procedure and the sedation options and risks were discussed with the patient. All questions were answered and informed consent was obtained. Patient identification and proposed procedure were verified by the physician, the nurse and the assembler molded frames in the pre-procedure area in the procedure room in the endoscopy suite. Mental Status Examination: normal. Airway Examination: normal oropharyngeal airway and neck mobility. Respiratory Examination: clear to auscultation. CV Examination: normal. Prophylactic Antibiotics: The patient does not require prophylactic antibiotics. Prior Anticoagulants: The patient has taken no anticoagulant or antiplatelet agents. ASA Grade Assessment: III - A patient with severe systemic disease. After reviewing the risks and benefits, the patient was deemed in satisfactory condition to undergo the procedure. The anesthesia plan was to use monitored anesthesia care (MAC). Immediately prior to administration of medications, the patient was re-assessed for adequacy to receive sedatives. The heart rate, respiratory rate, oxygen saturations, blood pressure, adequacy of pulmonary ventilation, and response to care were monitored throughout the procedure. The physical status of the patient was re-assessed after the procedure. After obtaining informed consent, the endoscope was passed under direct vision. Throughout the procedure, the patient's blood pressure, pulse, and oxygen saturations were monitored continuously. The Endoscope was introduced through the mouth, and advanced to the second part of duodenum. The upper GI endoscopy was accomplished with ease. The patient tolerated the procedure well. Complications: No immediate complications. Estimated blood loss: None. Procedure Code(s): --- Professional --- 61495, Esophagogastroduodenoscopy, flexible, transoral; with biopsy, single or multiple --- Technical --- 46509, Esophagogastroduodenoscopy, flexible, transoral; with biopsy, single or multiple Diagnosis Code(s): --- Professional --- K21.00, Gastro-esophageal reflux disease with esophagitis, without bleeding K44.9, Diaphragmatic hernia without obstruction or gangrene R13.10, Dysphagia, unspecified R14.0, Abdominal distension (gaseous) --- Technical --- K21.00, Gastro-esophageal reflux disease with esophagitis, without bleeding K44.9, Diaphragmatic hernia without obstruction or gangrene R13.10, Dysphagia, unspecified R14.0, Abdominal distension (gaseous) CPT copyright 2021 [employer]. All rights reserved. The codes documented in this report are preliminary and upon outpatient coder review may be revised to meet current compliance requirements. Attending Participation: I personally performed the entire procedure. Omega Flores, 12/28/2023 11:59:48 AM This report has been signed electronically. Number of Addenda: 0 Note Initiated On: 12/28/2023 11:21 AM [facility] 12-28-2023 [facility] Name: Catina Land Procedure Date: 12/28/2023 11:21 AM Gender: Male Date of : 1955 Age: 68 Admit Type: Outpatient Note Status: Finalized Endoscopist: Omega Flores , , [id number] Procedure: Upper GI endoscopy Indications: Dysphagia, Abdominal bloating Findings: LA Grade D (one or more mucosal breaks involving at least 75% of esophageal circumference) esophagitis with no bleeding was found. A 3 cm hiatal hernia was present. Many non-bleeding superficial gastric ulcers with no stigmata of bleeding were found in the gastric antrum. The largest lesion was 10 mm in largest dimension. Biopsies were taken with a cold forceps for histology. Biopsies were taken with a cold forceps for Helicobacter pylori testing. The exam was otherwise without abnormality.Peg balloon was on the anterior wall of the body. One non-bleeding superficial duodenal ulcer with no stigmata of bleeding was found in the first portion of the duodenum. The lesion was 10 mm in largest dimension. The second portion of the duodenum and third portion of the duodenum were normal. Biopsies were taken with a cold forceps for histology. Impression: - LA Grade D reflux esophagitis with no bleeding. - 3 cm hiatal hernia. - Non-bleeding gastric ulcers with no stigmata of bleeding. Biopsied. - The examination was otherwise normal. Peg balloon was on the anterior wall of the body. - Non-bleeding duodenal ulcer with no stigmata of bleeding. - Normal second portion of the duodenum and third portion of the duodenum. Biopsied. Recommendation: - Patient has a contact number available for emergencies. The signs and symptoms of potential delayed complications were discussed with the patient. Return to normal activities tomorrow. Written discharge instructions were provided to the patient. - Await pathology results. - No aspirin, ibuprofen, naproxen, or other non-steroidal anti-inflammatory drugs. - Continue present medications. - Start omperazole 40 mg twice daily 30 min before meals on an empty stomach. - Repeat EGD in 2 months to check for the ulcers' healing. - Resume previous diet. - Return to referring physician as previously scheduled. Referring MD: Teodoro Cameron MD CC Letter to: PCP Medicines: Monitored Anesthesia Care Procedure: Pre-Anesthesia Assessment: - Prior to the procedure, a History and Physical was performed, and patient medications and allergies were reviewed. The patient is competent. The risks and benefits of the procedure and the sedation options and risks were discussed with the patient. All questions were answered and informed consent was obtained. Patient identification and proposed procedure were verified by the physician, the nurse and the assembler molded frames in the pre-procedure area in the procedure room in the endoscopy suite. Mental Status Examination: normal. Airway Examination: normal oropharyngeal airway and neck mobility. Respiratory Examination: clear to auscultation. CV Examination: normal. Prophylactic Antibiotics: The patient does not require prophylactic antibiotics. Prior Anticoagulants: The patient has taken no anticoagulant or antiplatelet agents. ASA Grade Assessment: III - A patient with severe systemic disease. After reviewing the risks and benefits, the patient was deemed in satisfactory condition to undergo the procedure. The anesthesia plan was to use monitored anesthesia care (MAC). Immediately prior to administration of medications, the patient was re-assessed for adequacy to receive sedatives. The heart rate, respiratory rate, oxygen saturations, blood pressure, adequacy of pulmonary ventilation, and response to care were monitored throughout the procedure. The physical status of the patient was re-assessed after the procedure. After obtaining informed consent, the endoscope was passed under direct vision. Throughout the procedure, the patient's blood pressure, pulse, and oxygen saturations were monitored continuously. The Endoscope was introduced through the mouth, and advanced to the second part of duodenum. The upper GI endoscopy was accomplished with ease. The patient tolerated the procedure well. Complications: No immediate complications. Estimated blood loss: None. Procedure Code(s): --- Professional --- 94918, Esophagogastroduodenoscopy, flexible, transoral; with biopsy, single or multiple --- Technical --- 94362, Esophagogastroduodenoscopy, flexible, transoral; with biopsy, single or multiple Diagnosis Code(s): --- Professional --- K21.00, Gastro-esophageal reflux disease with esophagitis, without bleeding K44.9, Diaphragmatic hernia without obstruction or gangrene R13.10, Dysphagia, unspecified R14.0, Abdominal distension (gaseous) --- Technical --- K21.00, Gastro-esophageal reflux disease with esophagitis, without bleeding K44.9, Diaphragmatic hernia without obstruction or gangrene R13.10, Dysphagia, unspecified R14.0, Abdominal distension (gaseous) CPT copyright 2021 [employer]. All rights reserved. The codes documented in this report are preliminary and upon outpatient coder review may be revised to meet current compliance requirements. Attending Participation: I personally performed the entire procedure. Omega Flores, 12/28/2023 11:59:48 AM This report has been signed electronically. 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 male who is here today for planned endoscopic examination. All: Allergies Allergen Reactions Erythromycin Itching Meds: No current facility-administered medications on file prior to encounter. Current Outpatient Medications on File Prior to Encounter Medication Sig Dispense Refill amLODIPine (Norvasc) 10 MG tablet Take 1 tablet (10 mg) by mouth daily. Do not start before February 21, 2023. 30 tablet 0 apixaban (Eliquis) 5 MG tablet Take 1 tablet (5 mg) by mouth 2 times daily. Do not start before March 17, 2023. 60 tablet 0 atorvastatin (Lipitor) 40 MG tablet 1 tablet (40 mg) by Per G Tube route daily. 30 tablet 2 carvedilol (Coreg) 25 MG tablet 1 tablet (25 mg) by Per G Tube route in the morning and 1 tablet (25 mg) in the evening. Take with meals. 60 tablet 0 escitalopram (Lexapro) 5 MG tablet GABAPENTIN PO Take 200 mg by mouth in the morning and 200 mg in the evening. ipratropium-albuterol (Duo-Neb) 0.5-2.5 mg/3 mL nebulizer solution Take 3 mL by nebulization in the morning and 3 mL at noon and 3 mL in the evening. 180 mL 11 melatonin 5 MG tablet Take 1 tablet (5 mg) by mouth Nightly as needed (sleep). 0 metoclopramide (Reglan) 5 MG tablet Take 5 mg by mouth 3 times daily. oxygen (O2) gas Inhale 2 L/min continuous. 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 Airway patent PE: VS: There were no vitals taken for this visit. There is no height or weight on file to calculate BMI. General: Patient in no distress CVS: Regular rate & rhythm Respiratory: Clear to auscultation Abdomen: soft and non tender ASA score : 3 ASSESSMENT & PLAN: Risks & benefits of the endoscopic procedure(s) and MAC /GA sedation were personally explained to patient / family along with alternatives to the procedure in detail including radiological and surgical options. The risks of the endoscopic procedure include but are not limited to risk from anesthesia, respiratory failure, infection, bleeding, perforation, pancreatitis with its sequelae , damage to the adjacent organs, missed lesions and need for further procedure, surgery or interventional radiological intervention, from procedure or complications. We made a shared decision to proceed with planned procedure [x]EGD []Colonoscopy []EGD&Colonoscopy Omega Flores MD Gastroenterology [facility] 12-28-2023 History and physical note GASTROENTEROLOGY PHYSICIAN PRE PROCEDURE NOTE HPI: Catina Land is a 68 y.o. male who is here today for planned endoscopic examination. All: Allergies Allergen Reactions Erythromycin Itching Meds: No current facility-administered medications on file prior to encounter. Current Outpatient Medications on File Prior to Encounter Medication Sig Dispense Refill amLODIPine (Norvasc) 10 MG tablet Take 1 tablet (10 mg) by mouth daily. Do not start before February 21, 2023. 30 tablet 0 apixaban (Eliquis) 5 MG tablet Take 1 tablet (5 mg) by mouth 2 times daily. Do not start before March 17, 2023. 60 tablet 0 atorvastatin (Lipitor) 40 MG tablet 1 tablet (40 mg) by Per G Tube route daily. 30 tablet 2 carvedilol (Coreg) 25 MG tablet 1 tablet (25 mg) by Per G Tube route in the morning and 1 tablet (25 mg) in the evening. Take with meals. 60 tablet 0 escitalopram (Lexapro) 5 MG tablet GABAPENTIN PO Take 200 mg by mouth in the morning and 200 mg in the evening. ipratropium-albuterol (Duo-Neb) 0.5-2.5 mg/3 mL nebulizer solution Take 3 mL by nebulization in the morning and 3 mL at noon and 3 mL in the evening. 180 mL 11 melatonin 5 MG tablet Take 1 tablet (5 mg) by mouth Nightly as needed (sleep). 0 metoclopramide (Reglan) 5 MG tablet Take 5 mg by mouth 3 times daily. oxygen (O2) gas Inhale 2 L/min continuous. 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 Airway patent PE: VS: There were no vitals taken for this visit. There is no height or weight on file to calculate BMI. General: Patient in no distress CVS: Regular rate & rhythm Respiratory: Clear to auscultation Abdomen: soft and non tender ASA score : 3 ASSESSMENT & PLAN: Risks & benefits of the endoscopic procedure(s) and MAC /GA sedation were personally explained to patient / family along with alternatives to the procedure in detail including radiological and surgical options. The risks of the endoscopic procedure include but are not limited to risk from anesthesia, respiratory failure, infection, bleeding, perforation, pancreatitis with its sequelae , damage to the adjacent organs, missed lesions and need for further procedure, surgery or interventional radiological intervention, from procedure or complications. We made a shared decision to proceed with planned procedure [x]EGD []Colonoscopy []EGD&Colonoscopy Omega Flores MD Gastroenterology documented in this encounter [facility] 12-21-2023 History of Presen t illness Narrative Visit type: Established Patient Reason for Visit: Follow-up and Stroke Assessment and Plan 1. Ischemic stroke (HCC) 2. Atrial thrombus - [facility] Cardiology 3. Dysphagia as late effect of stroke Subjective HPI: February 2023 left MCA stroke CESARIO showed left atrial appendage thrombus-on Pete LOPEZ 04/14 Seen by GI Plan is for EGD He continues to reside at [facility] Family states that with any motion he gets very nauseous Family reports that a new company is taking over with therapy Was ill with COVID after Thanksgiving He is only able to say yes or no When I asked questions he answered yes to all questions Family reports 1 episode that occurred 6 months ago. He tensed up, "minor shaking," blank stare. Lasted 30 seconds He is incontinent REVIEW OF SYSTEMS: Review of Systems Constitutional: Negative. HENT: Negative. Eyes: Negative. Respiratory: Negative. Cardiovascular: Negative. Gastrointestinal: Positive for nausea. PEG tube Endocrine: Negative. Genitourinary: Negative. Incontinent Musculoskeletal: Positive for gait problem. Skin: Negative. Neurological: Positive for seizures, speech difficulty and weakness. Hematological: Negative. Psychiatric/Behavioral: Negative. Allergies Allergen Reactions Erythromycin Itching Outpatient Medications Prior to Visit Medication Sig Dispense Refill amLODIPine (Norvasc) 10 MG tablet Take 1 tablet (10 mg) by mouth daily. Do not start before February 21, 2023. 30 tablet 0 apixaban (Eliquis) 5 MG tablet Take 1 tablet (5 mg) by mouth 2 times daily. Do not start before March 17, 2023. 60 tablet 0 atorvastatin (Lipitor) 40 MG tablet 1 tablet (40 mg) by Per G Tube route daily. 30 tablet 2 carvedilol (Coreg) 25 MG tablet 1 tablet (25 mg) by Per G Tube route in the morning and 1 tablet (25 mg) in the evening. Take with meals. 60 tablet 0 escitalopram (Lexapro) 5 MG tablet gabapentin (Neurontin) 100 MG capsule Take 100 mg by mouth in the morning and 100 mg in the evening. ipratropium-albuterol (Duo-Neb) 0.5-2.5 mg/3 mL nebulizer solution Take 3 mL by nebulization in the morning and 3 mL at noon and 3 mL in the evening. 180 mL 11 melatonin 5 MG tablet Take 1 tablet (5 mg) by mouth Nightly as needed (sleep). 0 metoclopramide (Reglan) 5 MG tablet Take 5 mg by mouth 3 times daily. GABAPENTIN PO Take 200 mg by mouth in the morning and 200 mg in the evening. oxygen (O2) gas Inhale 2 L/min continuous. via nasal canula No facility-administered medications prior to visit. Past Medical History: Diagnosis Date CAD (coronary artery disease) History of coronary artery bypass graft x 2 04/2014 Hyperlipidemia [place], old 03/28/2014 STEMI-inferior Pneumonia Presence of stent in coronary artery 03/2014 Third degree AV block (CMS/HCC) (HCC) 03/28/2014 during inferior STEMI Social History Tobacco Use Smoking status: Former Packs/day: 1 Types: Cigarettes Start date: 03/17/1975 Smokeless tobacco: Not on file Substance Use Topics Alcohol use: Not Currently Past Surgical History: Procedure Laterality Date CORONARY ANGIOPLASTY 03/28/2014 DANDY to prox RCA x 2 CORONARY ARTERY BYPASS GRAFT 04/2014 SENIOR-LAD, SVG-PD/RCA Family History Problem Relation Name Age of Onset Coronary artery disease Mother Cancer Mother Cancer Father Colon cancer Mother's Brother Objective Vitals: BP 107/71 (BP Location: Left arm, Patient Position: Sitting, BP Cuff Size: Adult) Pulse 58 Wt 160 lb (72.6 kg) Comment: pert chart review BMI 27.46 kg/m General Appearance: Patient is in no apparent distress. Head is normocephalic, atraumatic Cardiovascular: Regular rate and rhythm. No heart murmurs. No carotid bruit Neurologic: Mentation: Alert Speech and Language: Only said Yes Concentration and Attention: Could not test Memory: Could not test Fund of Knowledge: Could not test Motor: Strength: Right hemiplegia Cogwheel Rigidity: None Tone: Tone is rigid Tremor / Involuntary Movements: None Coordination: Could not be tested Gait and Station: Could not be tested Data Reviewed and Summarized DIAGNOSTIC TESTING CBC: Lab Results Component Value Date WBC 7.2 03/09/2023 RBC 4.15 (L) 03/09/2023 HGB 12.4 (L) 03/09/2023 HCT 38.1 (L) 03/09/2023 MCV 91.6 03/09/2023 MCH 29.8 03/09/2023 MCHC 32.6 03/09/2023 RDW 14.6 (H) 03/09/2023 PLT 231 03/09/2023 MPV 9.0 03/09/2023 CMP: Lab Results Component Value Date NA 142 03/09/2023 K 3.4 (L) 03/09/2023 CL 107 03/09/2023 CO2 32 (H) 03/09/2023 BUN 21 (H) 03/09/2023 CREATININE 0.73 03/09/2023 CREATININE 1.10 01/26/2022 GLUCOSE 97 03/09/2023 PROT 6.3 03/06/2023 CALCIUM 8.2 (L) 03/09/2023 BILITOT 1.0 03/06/2023 ALKPHOS 79 03/06/2023 AST 34 03/06/2023 ALT 43 03/06/2023 BMP: Lab Results Component Value Date NA 142 03/09/2023 K 3.4 (L) 03/09/2023 CL 107 03/09/2023 CO2 32 (H) 03/09/2023 BUN 21 (H) 03/09/2023 CREATININE 0.73 03/09/2023 CREATININE 1.10 01/26/2022 CALCIUM 8.2 (L) 03/09/2023 GLUCOSE 97 03/09/2023 PT/INR: Lab Results Component Value Date PROTIME 11.5 02/16/2023 INR 1.1 02/16/2023 PTT: Lab Results Component Value Date APTT 27.8 02/05/2023 [APTT} FLP: Lab Results Component Value Date TRIG 81 02/06/2023 HDL 36 (L) 02/06/2023 LDLCALC 87 02/06/2023 TSH: No results found for: "TSH" VITAMIN B12: No results found for: "TFKUWARG41" No results found for: "PHENYTOIN", "PHENOBARB", "VALPROATE", "CBMZ" No components found for: "TOPIRA" @RESULTINGLABINFO@ No results found for: "LEVETIRACETA", "FERRITIN", "CRP", "JUDITH", "ANCA" No results found for: "JUANA", "IMMUNOGLOBUL", "OLIGOBANDS" HEPATITIS C VIRUS AB Date Value Ref Range Status 02/16/2023 Not Detected Not Detected Final Comment: Patients with DETECTED Hepatitis C Ab results should have a new specimen submitted for supplemental testing with a Hepatitis C Quantitative RNA assay (viral load), if clinically indicated. No results found for: "CRP", "ANATITER", "ANCA" FERRITIN: No results found for: FERRITIN ---- XR abdomen 1 view Narrative: [facility] 1955 [id number] Exam Date/Time: 11/03/2023 10:29 Procedure: XR ABDOMEN 1 VIEW Ordering Provider: KEMP DANIEL Reason For Exam: PEG tube placement Exam Type: XR ABDOMEN 1 VIEW Exam Date and Time: 11/03/2023 10:29 AM EST Indication: PEG tube placement Comparison: Abdominal radiograph on 04/11/2023 TECHNIQUE: AP supine radiograph of the abdomen before and after the instillation of oral contrast via a percutaneous gastrostomy tube.. FINDINGS: Imaging demonstrates instillation of contrast via a percutaneous gastrostomy tube. Contrast is intraluminal within the stomach and proximal small bowel. Nonobstructive bowel gas pattern. Degenerative changes of the imaged spine. 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 Atherosclerotic vascular calcifications. Impression: Intraluminal contrast administration via the percutaneous gastrostomy tube. Report Dictated on Electronically Signed By: Nathan Duarte MD Electronically Signed Date/Time: 11/03/2023 12:06 PM EST XR chest 1 view Narrative: [facility]: [facility]INA [facility]AND [facility] 1955 [id number] Exam Date/Time: 11/03/2023 10:29 Procedure: XR CHEST 1 VIEW Ordering Provider: KEMP DANIEL Reason For Exam: DYSPNEA CLINICAL INFORMATION: Shortness of breath. CHEST X-RAY, PORTABLE, 1006: An AP portable view is compared to the prior examination of 02/24/2023. The projection is slightly lordotic. The patient is slightly rotated to the right. There are median sternotomy wires. There is no abnormality of the mediastinum or cardiac silhouette. No pleural effusion, vascular congestion, focal consolidation or pneumothorax is seen. Impression: No evidence of acute cardiopulmonary process or significant interval change. Report Dictated on Electronically Signed By: Albin Dave MD Electronically Signed Date/Time: 11/03/2023 10:20 AM EST @LASTAPPOINTMENTTHISPROV@ IMPRESSION and PLAN: Problem List Items Addressed This Visit None Visit Diagnoses Ischemic stroke (HCC) - Primary Atrial thrombus Relevant Orders [facility] Cardiology Dysphagia as late effect of stroke Will have him see Dr. Peterson-Cardiology concerning atrial thrombus and need to continue Eliquis Plan is to resume therapies at the facility Scheduled for EGD to further assess N&V No problem-specific Assessment & Plan notes found for this encounter. PATRICK Serrano CNP I spent 30 minutes caring for this patient today, reviewing labs, records, seeing the patient, documenting in the record and arranging for studies. Electronically signed by @NUBIA@ on @TDNR@ at @NOWNR@ documented in this encounter [facility] 12-08-2023 Telephone encounter Note Called [employer]. Lili thinks that patient has switched to [employer] insurance, but she is going to double check with them and call me back. If this is accurate, patient needs to be r/s for his EGD due to provider not being contracted with them. [facility] 12-08-2023 Miscellaneous Notes Called [employer]. Lili thinks that patient has switched to [employer] insurance, but she is going to double check with them and call me back. If this is accurate, patient needs to be r/s for his EGD due to provider not being contracted with them. Plan terms on 12/08/23 with Lilian. Called to find out which insurance he is changing to. Facility was unsure yet what he is going to. They asked me to call back tomorrow and ask for Lili. documented in this encounter [facility] 12-07-2023 Telephone encounter Note Plan terms on 12/08/23 with Lilian. Called to find out which insurance he is changing to. Facility was unsure yet what he is going to. They asked me to call back tomorrow and ask for Lili. [facility] 11-21-2023 History of Presen t illness Narrative Images from the original note were not included. [facility]Y [address] [address] Dept: [phone] Dept Loc: [phone] Visit type: New Reason for Visit: New Patient, Nausea, and Vomiting Assessment and Plan Problem List Items Addressed This Visit None Visit Diagnoses Nausea and vomiting, unspecified vomiting type - Primary S/P percutaneous endoscopic gastrostomy (PEG) tube placement (HCC) prison current use of anticoagulant On supplemental oxygen therapy --schedule EGD in main hospital endoscopy for further evaluation of n/v (patient's sister, medical POA, is amenable and will accompany patient to procedure) --verify ok with prescribing physician to hold Eliquis for 48 hours prior to procedure --recommend to complete swallow study as previously ordered --discussed with patient and family, consider GES pending results of above, however with no reported TF residuals, and episodes primarily in relation to motion/position change, low suspicion for gastroparesis at this time --recommend to continue to follow-up with neurology as well, consider non-GI etiologies of n/v due to relationship with sx and position change/motion --follow-up prn pending results of above Advised patient to call office with new or worsening symptoms, questions, or concerns. Patient verbalized understanding and agreement of plan. Follow up if symptoms worsen or fail to improve. Subjective HPI Patient is referred by Dr. Stevens, re: nausea and vomiting. Patient with pmhx CAD, [place] (s/p CABG and stenting), HLD, and left MCA stroke 02/2023). He presents to appointment today via wheelchair from [facility]. He is accompanied to visit by his sister, Leighann (Medical POA), who provides HPI. Patient is minimally communicative. He is s/p PEG following stroke in February 2023. Has been strict NPO. Modified barium swallow ordered-not completed. Had accidental PEG removal 11/03/2023-this was replaced in [facility] ED. Nausea and vomiting have been ongoing for several months. Per sister, episodes are primarily related to motion/position change. Patient with n/v during van rides, when moving from laying to seated position. Patient does not want to get out of bed due to n/v. Family does not think n/v is in relation to tube feeds. Called facility and spoke with Eileen-reports symptomatically patient has improved with tube feed schedule change and addition of metoclopramide. No TF residuals since change in feed schedule. Was previously on bolus feeds. Tube feed has changed to Peptamen 1.5, 65 ml/hr X 18 hours. No residuals with current schedule. No hematemesis. On metoclopramide 5 mg TID. No diarrhea, constipation, hematochezia, or melena. No weight-loss. No prior EGD, however patient has ?hx esophagitis. Review of Systems Reason unable to perform ROS: limited HPI due to patient's cognitive status. Gastrointestinal: Positive for nausea and vomiting. Negative for abdominal distention, abdominal pain, anal bleeding, blood in stool, constipation, diarrhea and rectal pain. Allergies Allergen Reactions Erythromycin Itching Outpatient Medications Prior to Visit Medication Sig Dispense Refill apixaban (Eliquis) 5 MG tablet Take 1 tablet (5 mg) by mouth 2 times daily. Do not start before March 17, 2023. 60 tablet 0 escitalopram (Lexapro) 5 MG tablet gabapentin (Neurontin) 100 MG capsule Take 100 mg by mouth in the morning and 100 mg in the evening. GABAPENTIN PO Take 200 mg by mouth in the morning and 200 mg in the evening. ipratropium-albuterol (Duo-Neb) 0.5-2.5 mg/3 mL nebulizer solution Take 3 mL by nebulization in the morning and 3 mL at noon and 3 mL in the evening. 180 mL 11 melatonin 5 MG tablet Take 1 tablet (5 mg) by mouth Nightly as needed (sleep). 0 metoclopramide (Reglan) 5 MG tablet Take 5 mg by mouth 3 times daily. oxygen (O2) gas Inhale 2 L/min continuous. via nasal canula amLODIPine (Norvasc) 10 MG tablet Take 1 tablet (10 mg) by mouth daily. Do not start before February 21, 2023. 30 tablet 0 atorvastatin (Lipitor) 40 MG tablet 1 tablet (40 mg) by Per G Tube route daily. 30 tablet 2 carvedilol (Coreg) 25 MG tablet 1 tablet (25 mg) by Per G Tube route in the morning and 1 tablet (25 mg) in the evening. Take with meals. 60 tablet 0 No facility-administered medications prior to visit. Patient Active Problem List Diagnosis Date Noted SIRS (systemic inflammatory response syndrome) ([facility]) 03/08/2023 Priority: Medium Sepsis (HCC) 03/05/2023 Priority: Medium Cognitive impairment 02/19/2023 Priority: Medium Debility 02/19/2023 Priority: Medium Encounter for assessment of decision-making capacity 02/19/2023 Priority: Medium Acute ischemic stroke (HCC) 02/05/2023 Priority: Medium Arterial ischemic stroke, MCA (middle cerebral artery), left, acute ([facility]) 02/05/2023 Priority: Medium Brain compression (CMS/HCC) ([facility]) 02/05/2023 Priority: Medium Cerebral edema (CMS/HCC) ([facility]) 02/05/2023 Priority: Medium Troponin level elevated 02/05/2023 Priority: Medium History of coronary artery bypass graft x 2 03/17/2017 Hyperlipidemia 03/17/2017 Presence of stent in coronary artery 03/17/2017 CAD (coronary artery disease) 03/17/2017 [place], old 03/17/2017 Overview Note: STEMI-inferior Social History Tobacco Use Smoking status: Former Packs/day: 1 Types: Cigarettes Start date: 03/17/1975 Smokeless tobacco: Not on file Substance Use Topics Alcohol use: Not Currently Family History Problem Relation Name Age of Onset Coronary artery disease Mother Cancer Mother Cancer Father Colon cancer Mother's Brother Objective BP 120/62 Pulse 59 Temp 36.2 C (97.2 F) Ht 5' 4" (1.626 m) Wt 160 lb (72.6 kg) BMI 27.46 kg/m Physical Exam Constitutional: Appearance: Normal appearance. HENT: Head: Normocephalic. Eyes: General: No scleral icterus. Cardiovascular: Rate and Rhythm: Normal rate and regular rhythm. Pulmonary: Effort: Pulmonary effort is normal. Breath sounds: Normal breath sounds. Comments: Uses supplemental oxygen prn Abdominal: General: Bowel sounds are normal. There is no distension. Palpations: Abdomen is soft. There is no mass. Tenderness: There is no abdominal tenderness. There is no guarding or rebound. Hernia: No hernia is present. Comments: PEG in place, dressing CDI Skin: General: Skin is warm and dry. Coloration: Skin is not jaundiced. Neurological: Mental Status: He is alert. Mental status is at baseline. Motor: Weakness (residual right sided weakness) present. Psychiatric: Mood and Affect: Mood normal. Behavior: Behavior normal. Data Reviewed and Summarized Labs: Lab Results Component Value Date WBC 7.2 03/09/2023 HGB 12.4 (L) 03/09/2023 HCT 38.1 (L) 03/09/2023 MCV 91.6 03/09/2023 PLT 231 03/09/2023 Lab Results Component Value Date GLUCOSE 97 03/09/2023 CALCIUM 8.2 (L) 03/09/2023 NA 142 03/09/2023 K 3.4 (L) 03/09/2023 CO2 32 (H) 03/09/2023 CL 107 03/09/2023 BUN 21 (H) 03/09/2023 CREATININE 0.73 03/09/2023 Lab Results Component Value Date ALT 43 03/06/2023 AST 34 03/06/2023 ALKPHOS 79 03/06/2023 BILITOT 1.0 03/06/2023 Lab Results Component Value Date LIPASE 35 03/05/2023 Imaging/Testin03/06/2023 US Abdomen IMPRESSION: Normal sonographic appearance of the right upper quadrant where visualized. Report Dictated on Electronically Signed By: Ramón Tavares Electronically Signed Date/Time: 03/06/2023 8:06 AM EDT MELISSA Salazar 9:29 AM 11/21/23 documented in this encounter [facility] 11-21-2023 Instructions Mahogany Pinto MA - 11/21/2023 8:00 AM EST --Please call office with any questions or concerns! [phone] --Schedule EGD (upper endoscopy) in [facility] endoscopy. Pt scheduled with Dr. Flores on 12/28/23 in [place] at 11:15am. Case # [id number] --verify ok with PCP to hold Eliquis for 2 days prior to procedure. --recommend to complete swallow study as previously ordered --Please see handout provided regarding additional recommendations for the symptoms including when to seek emergency care or further treatment. --Follow-up with PCP, and in GI clinic as needed pending results of above. The following attachments cannot be sent through Care Everywhere.Nausea and Vomiting, Adult (Moroccan)Upper GI Endoscopy (Moroccan)documented in this encounter [facility] 11-16-2023 Telephone encounter Note Attempted to contact patient for MyChart visit for 11/18/2023. is disconnect. Note in appointment schedule indicated to call [phone] for MY Chart visit, left a message with appointment details [facility] 11-16-2023 Miscellaneous Notes Attempted to contact patient for MyChart visit for 11/18/2023. is disconnect. Note in appointment schedule indicated to call [phone] for MY Chart visit, left a message with appointment details documented in this encounter [facility] 11-03-2023 Emergency department Note Bed: 33 Expected date: Expected time: Means of arrival: Comments: EMS Cindy Cervantes RN 11/03/23 0841 [facility] 11-03-2023 Emergency department Note Associated Order(s): PEG Tube Insertion/Replacement EMERGENCY DEPARTMENT ENCOUNTER Pt Name: Catina Land Birthdate 1955 Date of evaluation: 11/03/2023 ED Provider: Amol Kemp APRN - JACLYN I have evaluated this patient on my own, per my scope of practice with an attending physician available for consultation. CHIEF COMPLAINT Chief Complaint Patient presents with PG TUBE REPLACEMENT Patient arrives to ED via EMS from [facility] after PEG tube was accidentally removed from staff last evening. Unknown size, as the nurse threw away the tube. 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 No signs of distress noted on arrival. HISTORY OF PRESENT ILLNESS (Location/Symptom, Timing/Onset, Context/Setting, Quality, Duration, Modifying Factors, Severity) Note limiting factors. I wore appropriate PPE for the entirety of this encounter. HPI Catina Land is a 68 y.o. who presents to the emergency department with chief complaint of with PEG tube removal, EMS stated that a staff member at the [facility] pulled out the patient's PEG tube yesterday and threw it away because they did not know what it was allegedly. Patient is nonverbal from a prior CVA hence the PEG tube for feedings and medications. He has been out since around dinnertime yesterday. Nursing Notes were reviewed. Limitations to history: None Outside historians: None REVIEW OF SYSTEMS Review of Systems Unable to perform ROS: Patient nonverbal Constitutional: Negative for activity change, appetite change, chills and fever. HENT: Negative for congestion, nosebleeds, postnasal drip, sore throat and trouble swallowing. Eyes: Negative for pain and visual disturbance. Respiratory: Negative for cough and shortness of breath. Cardiovascular: Negative for chest pain. Gastrointestinal: Negative for abdominal pain, nausea and vomiting. Genitourinary: Negative for dysuria, flank pain, hematuria, penile discharge, scrotal swelling and testicular pain. Musculoskeletal: Negative for arthralgias, back pain and myalgias. Skin: Negative for rash and wound. Neurological: Negative for dizziness, syncope, weakness and light-headedness. Psychiatric/Behavioral: Negative for agitation and confusion. All other systems reviewed and are negative. Pertinent positives and negatives as per HPI. PAST MEDICAL HISTORY Past Medical History: Diagnosis Date CAD (coronary artery disease) History of coronary artery bypass graft x 2 04/2014 Hyperlipidemia [place], old 03/28/2014 STEMI-inferior Pneumonia Presence of stent in coronary artery 03/2014 Third degree AV block (CMS/HCC) (HCC) 03/28/2014 during inferior STEMI SURGICAL HISTORY Past Surgical History: Procedure Laterality Date CORONARY ANGIOPLASTY 03/28/2014 DANDY to prox RCA x 2 CORONARY ARTERY BYPASS GRAFT 04/2014 SENIOR-LAD, SVG-PD/RCA CURRENT MEDICATIONS Previous Medications AMLODIPINE (NORVASC) 10 MG TABLET Take 1 tablet (10 mg) by mouth daily. Do not start before February 21, 2023. APIXABAN (ELIQUIS) 5 MG TABLET Take 1 tablet (5 mg) by mouth 2 times daily. Do not start before March 17, 2023. ATORVASTATIN (LIPITOR) 40 MG TABLET 1 tablet (40 mg) by Per G Tube route daily. CARVEDILOL (COREG) 25 MG TABLET 1 tablet (25 mg) by Per G Tube route in the morning and 1 tablet (25 mg) in the evening. Take with meals. ESCITALOPRAM (LEXAPRO) 5 MG TABLET GABAPENTIN (NEURONTIN) 100 MG CAPSULE Take 100 mg by mouth in the morning and 100 mg in the evening. GABAPENTIN PO Take 200 mg by mouth in the morning and 200 mg in the evening. IPRATROPIUM-ALBUTEROL (DUO-NEB) 0.5-2.5 MG/3 ML NEBULIZER SOLUTION Take 3 mL by nebulization in the morning and 3 mL at noon and 3 mL in the evening. MELATONIN 5 MG TABLET Take 1 tablet (5 mg) by mouth Nightly as needed (sleep). METOCLOPRAMIDE (REGLAN) 5 MG TABLET Take 5 mg by mouth 3 times daily. ALLERGIES Erythromycin FAMILY HISTORY Family History Problem Relation Name Age of Onset Coronary artery disease Mother Cancer Mother Cancer Father SOCIAL HISTORY Social History Socioeconomic History Marital status: Single Tobacco Use Smoking status: Every Day Packs/day: 1 Types: Cigarettes Start date: 03/17/1975 Substance and Sexual Activity Alcohol use: Yes Drug use: No SCREENINGS Sam Coma Scale Best Eye Response: Spontaneous Best Verbal Response: None Best Motor Response: Localizes pain Sam Coma Scale Score: 10 PHYSICAL EXAM ED Triage Vitals Temp Heart Rate Resp BP 11/03/23 0847 11/03/23 0845 11/03/23 0845 11/03/23 0845 37 C (98.6 F) 67 15 115/70 SpO2 Temp Source Heart Rate Source Patient Position 11/03/23 0845 11/03/23 0847 -- -- 95 % Oral BP Location FiO2 (%) 11/03/23 0845 -- Left arm Physical Exam Vitals and nursing note reviewed. Constitutional: General: He is not in acute distress. Appearance: Normal appearance. He is normal weight. He is not ill-appearing or toxic-appearing. HENT: Head: Normocephalic and atraumatic. Right Ear: External ear normal. Left Ear: External ear normal. Mouth/Throat: Mouth: Mucous membranes are moist. Pharynx: Oropharynx is clear. Eyes: Extraocular Movements: Extraocular movements intact. Conjunctiva/sclera: Conjunctivae normal. Pupils: Pupils are equal, round, and reactive to light. Cardiovascular: Rate and Rhythm: Normal rate and regular rhythm. Pulses: Normal pulses. Heart sounds: Normal heart sounds. No murmur heard. Pulmonary: Effort: Pulmonary effort is normal. No respiratory distress. Breath sounds: No stridor. Rhonchi present. No wheezing. Comments: Rhonchorous breath sounds throughout throughout Abdominal: Comments: The abdomen is soft, nondistended and nontender. There is no rebound tenderness or guarding. Bowel sounds are normal. Musculoskeletal: General: No tenderness or signs of injury. Normal range of motion. Cervical back: Normal range of motion and neck supple. No rigidity. Lymphadenopathy: Cervical: No cervical adenopathy. Skin: General: Skin is warm and dry. Capillary Refill: Capillary refill takes less than 2 seconds. Coloration: Skin is not jaundiced or pale. Findings: No bruising or erythema. Neurological: Mental Status: He is alert. Mental status is at baseline. Motor: No weakness. Comments: Moves all 4 extremities, nonverbal, will follow commands. Psychiatric: Mood and Affect: Mood normal. DIAGNOSTIC RESULTS Procedures/EKG: EKG was reviewed by myself. Physician EKG interpretation can be found in [facility] RADIOLOGY (Per Emergency Physician): Interpretation per the Radiologist below, if available at the time of this note: XR chest 1 view Final Result No evidence of acute cardiopulmonary process or significant interval change. Report Dictated on Electronically Signed By: Albin Dave MD Electronically Signed Date/Time: 11/03/2023 10:20 AM EST XR abdomen 1 view (Results Pending) ED BEDSIDE ULTRASOUND: Performed by ED Physician - none LABS: Labs Reviewed - No data to display All other labs were within normal range or not returned as of this dictation. EMERGENCY DEPARTMENT COURSE and DIFFERENTIAL DIAGNOSIS/MDM: Vitals: Vitals: 11/03/23 0845 11/03/23 0847 11/03/23 1030 11/03/23 1100 BP: 115/70 119/72 111/66 BP Location: Left arm Pulse: 67 72 70 Resp: 15 19 Temp: 37 C (98.6 F) TempSrc: Oral SpO2: 95% 95% 96% Diagnoses as of 11/03/23 1120 PEG tube malfunction (CMS/HCC) (HCC) The patient presented with chief complaint of with chief complaint of with PEG tube removal, EMS stated that a staff member at the [facility] pulled out the patient's PEG tube yesterday and threw it away because they did not know what it was allegedly. Patient is nonverbal from a prior CVA hence the PEG tube for feedings and medications. He has been out since around dinnertime yesterday.. The differential diagnosis associated with this patient's presentation includes PEG tube removal/displacement. Our workup consisted of ordering/reviewing: Chest x-ray and abdominal x-ray, chest x-ray as interpreted by myself shows normal mediastinum no infiltrate or effusion abdominal x-ray shows Gastrografin in the stomach. The patient will be discharged back to extended care facility. Patient is in agreement with this plan. Medications diatrizoate meglumine-sodium (Gastrografin) 66-10 % solution 30 mL (has no administration in time range) REVAL: CRITICAL CARE TIME None CONSULTS: None PROCEDURES: Unless otherwise noted below, none PEG Tube Insertion/Replacement Performed by: PATRICK Hamm CNP Authorized by: PATRICK Hamm CNP Consent: The indications, risks, benefits, alternatives to the procedure were explained to the patient/surrogate decision maker and their questions answered. Consent was obtained to proceed with the procedure. Timeout: Completed immediately prior to the start of the procedure which included verification of the correct patient, correct site and agreement on the procedure to be done. Indications: Indications: dysphagia Anesthetic: Local anesthetic used: not applicable Preparation: Patient was prepped and draped in usual sterile fashion Skin prepped: skin prepped with chlorhexidine Procedure details: Procedure type: PEG tube replacement without revision Tube type: MAUREEN tube Tube size: 18 Fr (16 FR). Skin level of gastrostomy tube: 4 cm Bulb inflation volume: 10 (ml) Bulb inflation fluid: sterile water Post-procedure: Post-procedure: Securement device Estimated blood loss: none Specify Complication(s): no apparent complications Patients symptoms are consistent with sepsis, severe sepsis, or septic shock (If yes use ".sepsiscoremeasure"): No FINAL IMPRESSION 1. PEG tube malfunction ([facility]) ([facility]) DISPOSITION Discharge 11/03/2023 11:19:48 AM PATIENT REFERRED TO: [facility] [address] [facility] [id number] As needed Teodoro Cameron MD [id number] [id number] As needed DISCHARGE MEDICATIONS: New Prescriptions No medications on file (Comment: Please note this report has been produced using speech recognition software and may contain errors related to that system including errors in grammar, punctuation, and spelling, as well as words and phrases that may be inappropriate. If there are any questions or concerns please feel free to contact the dictating provider for clarification.) PATRICK Hamm CNP (electronically signed) Emergency Medicine Provider PATRICK Hamm CNP 11/03/23 1121 Bed: 33 Expected date: Expected time: Means of arrival: Comments: EMS Cindy Cervantes RN 11/03/23 0841 documented in this encounter [facility] 11-03-2023 Physician Emergency department Note Associated Order(s): PEG Tube Insertion/Replacement EMERGENCY DEPARTMENT ENCOUNTER Pt Name: Catina Land Birthdate 1955 Date of evaluation: 11/03/2023 ED Provider: PATRICK Hamm CNP I have evaluated this patient on my own, per my scope of practice with an attending physician available for consultation. CHIEF COMPLAINT Chief Complaint Patient presents with PG TUBE REPLACEMENT Patient arrives to ED via EMS from [facility] after PEG tube was accidentally removed from staff last evening. Unknown size, as the nurse threw away the tube. 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 No signs of distress noted on arrival. HISTORY OF PRESENT ILLNESS (Location/Symptom, Timing/Onset, Context/Setting, Quality, Duration, Modifying Factors, Severity) Note limiting factors. I wore appropriate PPE for the entirety of this encounter. HPI Catina Land is a 68 y.o. who presents to the emergency department with chief complaint of with PEG tube removal, EMS stated that a staff member at the [facility] pulled out the patient's PEG tube yesterday and threw it away because they did not know what it was allegedly. Patient is nonverbal from a prior CVA hence the PEG tube for feedings and medications. He has been out since around dinnertime yesterday. Nursing Notes were reviewed. Limitations to history: None Outside historians: None REVIEW OF SYSTEMS Review of Systems Unable to perform ROS: Patient nonverbal Constitutional: Negative for activity change, appetite change, chills and fever. HENT: Negative for congestion, nosebleeds, postnasal drip, sore throat and trouble swallowing. Eyes: Negative for pain and visual disturbance. Respiratory: Negative for cough and shortness of breath. Cardiovascular: Negative for chest pain. Gastrointestinal: Negative for abdominal pain, nausea and vomiting. Genitourinary: Negative for dysuria, flank pain, hematuria, penile discharge, scrotal swelling and testicular pain. Musculoskeletal: Negative for arthralgias, back pain and myalgias. Skin: Negative for rash and wound. Neurological: Negative for dizziness, syncope, weakness and light-headedness. Psychiatric/Behavioral: Negative for agitation and confusion. All other systems reviewed and are negative. Pertinent positives and negatives as per HPI. PAST MEDICAL HISTORY Past Medical History: Diagnosis Date CAD (coronary artery disease) History of coronary artery bypass graft x 2 04/2014 Hyperlipidemia [place], old 03/28/2014 STEMI-inferior Pneumonia Presence of stent in coronary artery 03/2014 Third degree AV block (CMS/HCC) (HCC) 03/28/2014 during inferior STEMI SURGICAL HISTORY Past Surgical History: Procedure Laterality Date CORONARY ANGIOPLASTY 03/28/2014 DANDY to prox RCA x 2 CORONARY ARTERY BYPASS GRAFT 04/2014 SENIRO-LAD, SVG-PD/RCA CURRENT MEDICATIONS Previous Medications AMLODIPINE (NORVASC) 10 MG TABLET Take 1 tablet (10 mg) by mouth daily. Do not start before February 21, 2023. APIXABAN (ELIQUIS) 5 MG TABLET Take 1 tablet (5 mg) by mouth 2 times daily. Do not start before March 17, 2023. ATORVASTATIN (LIPITOR) 40 MG TABLET 1 tablet (40 mg) by Per G Tube route daily. CARVEDILOL (COREG) 25 MG TABLET 1 tablet (25 mg) by Per G Tube route in the morning and 1 tablet (25 mg) in the evening. Take with meals. ESCITALOPRAM (LEXAPRO) 5 MG TABLET GABAPENTIN (NEURONTIN) 100 MG CAPSULE Take 100 mg by mouth in the morning and 100 mg in the evening. GABAPENTIN PO Take 200 mg by mouth in the morning and 200 mg in the evening. IPRATROPIUM-ALBUTEROL (DUO-NEB) 0.5-2.5 MG/3 ML NEBULIZER SOLUTION Take 3 mL by nebulization in the morning and 3 mL at noon and 3 mL in the evening. MELATONIN 5 MG TABLET Take 1 tablet (5 mg) by mouth Nightly as needed (sleep). METOCLOPRAMIDE (REGLAN) 5 MG TABLET Take 5 mg by mouth 3 times daily. ALLERGIES Erythromycin FAMILY HISTORY Family History Problem Relation Name Age of Onset Coronary artery disease Mother Cancer Mother Cancer Father SOCIAL HISTORY Social History Socioeconomic History Marital status: Single Tobacco Use Smoking status: Every Day Packs/day: 1 Types: Cigarettes Start date: 03/17/1975 Substance and Sexual Activity Alcohol use: Yes Drug use: No SCREENINGS Sam Coma Scale Best Eye Response: Spontaneous Best Verbal Response: None Best Motor Response: Localizes pain [place] Coma Scale Score: 10 PHYSICAL EXAM ED Triage Vitals Temp Heart Rate Resp BP 11/03/23 0847 11/03/23 0845 11/03/23 0845 11/03/23 0845 37 C (98.6 F) 67 15 115/70 SpO2 Temp Source Heart Rate Source Patient Position 11/03/23 0845 11/03/23 0847 -- -- 95 % Oral BP Location FiO2 (%) 11/03/23 0845 -- Left arm Physical Exam Vitals and nursing note reviewed. Constitutional: General: He is not in acute distress. Appearance: Normal appearance. He is normal weight. He is not ill-appearing or toxic-appearing. HENT: Head: Normocephalic and atraumatic. Right Ear: External ear normal. Left Ear: External ear normal. Mouth/Throat: Mouth: Mucous membranes are moist. Pharynx: Oropharynx is clear. Eyes: Extraocular Movements: Extraocular movements intact. Conjunctiva/sclera: Conjunctivae normal. Pupils: Pupils are equal, round, and reactive to light. Cardiovascular: Rate and Rhythm: Normal rate and regular rhythm. Pulses: Normal pulses. Heart sounds: Normal heart sounds. No murmur heard. Pulmonary: Effort: Pulmonary effort is normal. No respiratory distress. Breath sounds: No stridor. Rhonchi present. No wheezing. Comments: Rhonchorous breath sounds throughout throughout Abdominal: Comments: The abdomen is soft, nondistended and nontender. There is no rebound tenderness or guarding. Bowel sounds are normal. Musculoskeletal: General: No tenderness or signs of injury. Normal range of motion. Cervical back: Normal range of motion and neck supple. No rigidity. Lymphadenopathy: Cervical: No cervical adenopathy. Skin: General: Skin is warm and dry. Capillary Refill: Capillary refill takes less than 2 seconds. Coloration: Skin is not jaundiced or pale. Findings: No bruising or erythema. Neurological: Mental Status: He is alert. Mental status is at baseline. Motor: No weakness. Comments: Moves all 4 extremities, nonverbal, will follow commands. Psychiatric: Mood and Affect: Mood normal. DIAGNOSTIC RESULTS Procedures/EKG: EKG was reviewed by myself. Physician EKG interpretation can be found in [facility] RADIOLOGY (Per Emergency Physician): Interpretation per the Radiologist below, if available at the time of this note: XR chest 1 view Final Result No evidence of acute cardiopulmonary process or significant interval change. Report Dictated on Electronically Signed By: Albin Dave MD Electronically Signed Date/Time: 11/03/2023 10:20 AM EST XR abdomen 1 view (Results Pending) ED BEDSIDE ULTRASOUND: Performed by ED Physician - none LABS: Labs Reviewed - No data to display All other labs were within normal range or not returned as of this dictation. EMERGENCY DEPARTMENT COURSE and DIFFERENTIAL DIAGNOSIS/MDM: Vitals: Vitals: 11/03/23 0845 11/03/23 0847 11/03/23 1030 11/03/23 1100 BP: 115/70 119/72 111/66 BP Location: Left arm Pulse: 67 72 70 Resp: 15 19 Temp: 37 C (98.6 F) TempSrc: Oral SpO2: 95% 95% 96% Diagnoses as of 11/03/23 1120 PEG tube malfunction (CMS/HCC) (HCC) The patient presented with chief complaint of with chief complaint of with PEG tube removal, EMS stated that a staff member at the [facility] pulled out the patient's PEG tube yesterday and threw it away because they did not know what it was allegedly. Patient is nonverbal from a prior CVA hence the PEG tube for feedings and medications. He has been out since around dinnertime yesterday.. The differential diagnosis associated with this patient's presentation includes PEG tube removal/displacement. Our workup consisted of ordering/reviewing: Chest x-ray and abdominal x-ray, chest x-ray as interpreted by myself shows normal mediastinum no infiltrate or effusion abdominal x-ray shows Gastrografin in the stomach. The patient will be discharged back to extended care facility. Patient is in agreement with this plan. Medications diatrizoate meglumine-sodium (Gastrografin) 66-10 % solution 30 mL (has no administration in time range) REVAL: CRITICAL CARE TIME None CONSULTS: None PROCEDURES: Unless otherwise noted below, none PEG Tube Insertion/Replacement Performed by: PATRICK Hamm CNP Authorized by: PATRICK Hamm CNP Consent: The indications, risks, benefits, alternatives to the procedure were explained to the patient/surrogate decision maker and their questions answered. Consent was obtained to proceed with the procedure. Timeout: Completed immediately prior to the start of the procedure which included verification of the correct patient, correct site and agreement on the procedure to be done. Indications: Indications: dysphagia Anesthetic: Local anesthetic used: not applicable Preparation: Patient was prepped and draped in usual sterile fashion Skin prepped: skin prepped with chlorhexidine Procedure details: Procedure type: PEG tube replacement without revision Tube type: MAUREEN tube Tube size: 18 Fr (16 FR). Skin level of gastrostomy tube: 4 cm Bulb inflation volume: 10 (ml) Bulb inflation fluid: sterile water Post-procedure: Post-procedure: Securement device Estimated blood loss: none Specify Complication(s): no apparent complications Patients symptoms are consistent with sepsis, severe sepsis, or septic shock (If yes use ".sepsiscoremeasure"): No FINAL IMPRESSION 1. PEG tube malfunction ([facility]) ([facility]) DISPOSITION Discharge 11/03/2023 11:19:48 AM PATIENT REFERRED TO: [facility] ED [address] [facility] [id number] As needed Teodoro Cameron MD [facility] [address] As needed DISCHARGE MEDICATIONS: New Prescriptions No medications on file (Comment: Please note this report has been produced using speech recognition software and may contain errors related to that system including errors in grammar, punctuation, and spelling, as well as words and phrases that may be inappropriate. If there are any questions or concerns please feel free to contact the dictating provider for clarification.) PATRICK Hamm CNP (electronically signed) Emergency Medicine Provider PATRICK Hamm CNP 11/03/23 1121 [facility] 07-19-2023 History of Presen t illness Narrative Patient was seen today via Telehealth by agreement and consent. I used the following Telehealth technology: Audio Patient location: VV Patient Location: Nursing facility. This patient encounter is appropriate and reasonable under the circumstances: transportation issuesVisit type: Established Patient Reason for Visit: Follow-up Assessment and Plan 1. Ischemic stroke (HCC) 2. Obstructive sleep apnea 3. Projectile vomiting, unspecified whether nausea present Subjective HPI: February 2023 left MCA stroke CESARIO showed left atrial appendage thrombus-on Eliquis JO ANNG 04/14 Spoke with REVENUE FIELD AGENT Pt is only able to say yes and no He has completed therapy He needs max assistance with ADLs He remains on TF Pt is bed bound. [place] for transfers He has been ill. A lot of projectile vomiting Difficulty with going to appts Staff reports no new stroke like sx Passive and active ROM on extremities His sister's main concern is the vomiting REVIEW OF SYSTEMS: Review of Systems Constitutional: Negative. HENT: Negative. Eyes: Negative. Respiratory: Negative. Cardiovascular: Negative. Gastrointestinal: Positive for vomiting. Endocrine: Negative. Genitourinary: Negative. Musculoskeletal: Negative. Skin: Negative. Allergic/Immunologic: Negative. Neurological: Positive for speech difficulty and weakness. Hematological: Negative. Psychiatric/Behavioral: Negative. Allergies Allergen Reactions Erythromycin Itching Outpatient Medications Prior to Visit Medication Sig Dispense Refill amLODIPine (Norvasc) 10 MG tablet Take 1 tablet (10 mg) by mouth daily. Do not start before February 21, 2023. 30 tablet 0 apixaban (Eliquis) 5 MG tablet Take 1 tablet (5 mg) by mouth 2 times daily. Do not start before March 17, 2023. 60 tablet 0 atorvastatin (Lipitor) 40 MG tablet 1 tablet (40 mg) by Per G Tube route daily. 30 tablet 2 carvedilol (Coreg) 25 MG tablet 1 tablet (25 mg) by Per G Tube route in the morning and 1 tablet (25 mg) in the evening. Take with meals. 60 tablet 0 escitalopram (Lexapro) 5 MG tablet GABAPENTIN PO Take 200 mg by mouth in the morning and 200 mg in the evening. ipratropium-albuterol (Duo-Neb) 0.5-2.5 mg/3 mL nebulizer solution Take 3 mL by nebulization in the morning and 3 mL at noon and 3 mL in the evening. 180 mL 11 melatonin 5 MG tablet Take 1 tablet (5 mg) by mouth Nightly as needed (sleep). 0 metoclopramide (Reglan) 5 MG tablet Take 5 mg by mouth 3 times daily. gabapentin (Neurontin) 100 MG capsule Take 100 mg by mouth in the morning and 100 mg in the evening. No facility-administered medications prior to visit. Past Medical History: Diagnosis Date CAD (coronary artery disease) History of coronary artery bypass graft x 2 04/2014 Hyperlipidemia [place], old 03/28/2014 STEMI-inferior Pneumonia Presence of stent in coronary artery 03/2014 Third degree AV block (CMS/HCC) (HCC) 03/28/2014 during inferior STEMI Social History Tobacco Use Smoking status: Every Day Packs/day: 1.00 Types: Cigarettes Start date: 03/17/1975 Smokeless tobacco: Not on file Substance Use Topics Alcohol use: Yes Past Surgical History: Procedure Laterality Date CORONARY ANGIOPLASTY 03/28/2014 DANDY to prox RCA x 2 CORONARY ARTERY BYPASS GRAFT 04/2014 SENIOR-LAD, SVG-PD/RCA Family History Problem Relation Name Age of Onset Coronary artery disease Mother Cancer Mother Cancer Father Objective Vitals: There were no vitals taken for this visit. Audio visit. Due to patient's inability to speak, visit was done with REVENUE FIELD AGENT Data Reviewed and Summarized DIAGNOSTIC TESTING CBC: Lab Results Component Value Date WBC 7.2 03/09/2023 RBC 4.15 (L) 03/09/2023 HGB 12.4 (L) 03/09/2023 HCT 38.1 (L) 03/09/2023 MCV 91.6 03/09/2023 MCH 29.8 03/09/2023 MCHC 32.6 03/09/2023 RDW 14.6 (H) 03/09/2023 PLT 231 03/09/2023 MPV 9.0 03/09/2023 CMP: Lab Results Component Value Date NA 142 03/09/2023 K 3.4 (L) 03/09/2023 CL 107 03/09/2023 CO2 32 (H) 03/09/2023 BUN 21 (H) 03/09/2023 CREATININE 0.73 03/09/2023 CREATININE 1.10 01/26/2022 GLUCOSE 97 03/09/2023 PROT 6.3 03/06/2023 CALCIUM 8.2 (L) 03/09/2023 BILITOT 1.0 03/06/2023 ALKPHOS 79 03/06/2023 AST 34 03/06/2023 ALT 43 03/06/2023 BMP: Lab Results Component Value Date NA 142 03/09/2023 K 3.4 (L) 03/09/2023 CL 107 03/09/2023 CO2 32 (H) 03/09/2023 BUN 21 (H) 03/09/2023 CREATININE 0.73 03/09/2023 CREATININE 1.10 01/26/2022 CALCIUM 8.2 (L) 03/09/2023 GLUCOSE 97 03/09/2023 PT/INR: Lab Results Component Value Date PROTIME 11.5 02/16/2023 INR 1.1 02/16/2023 PTT: Lab Results Component Value Date APTT 27.8 02/05/2023 [APTT} FLP: Lab Results Component Value Date TRIG 81 02/06/2023 HDL 36 (L) 02/06/2023 LDLCALC 87 02/06/2023 TSH: No results found for: TSH VITAMIN B12: No results found for: [id number] No results found for: PHENYTOIN, PHENOBARB, VALPROATE, CBMZ No components found for: TOPIRA @RESULTINGLABINFO@ No results found for: LEVETIRACETA, FERRITIN, CRP, JUDITH, ANCA No results found for: JUANA, IMMUNOGLOBUL, OLIGOBANDS HEPATITIS C VIRUS AB Date Value Ref Range Status 02/16/2023 Not Detected Not Detected Final Comment: Patients with DETECTED Hepatitis C Ab results should have a new specimen submitted for supplemental testing with a Hepatitis C Quantitative RNA assay (viral load), if clinically indicated. No results found for: CRP, ANATITER, ANCA, ANCA FERRITIN: No results found for: FERRITIN ---- XR abdomen 1 view Narrative: [facility]AND [facility] 1955 [id number] Exam Date/Time: 04/11/2023 04:20 Procedure: XR ABDOMEN 1 VIEW Ordering Provider: FLORES PRISCA Reason For Exam: peg tube placement ABDOMEN AND LIMITED UPPER GI: CLINICAL INDICATION: Gastrostomy tube placement. TECHNIQUE: Supine abdomen and pelvis before and after administration of 15 mL of Gastrografin performed by the nurse COMPARISON: None. FINDINGS: The bowel gas pattern is unremarkable on the initial radiograph. Following contrast instillation, there is contrast in the stomach and duodenum without evidence of extravasation. Vascular calcifications are noted. Degenerative change of the lumbar spine. Impression: Gastrostomy tube in adequate position. Report Dictated on Electronically Signed By: Paul Kumar Electronically Signed Date/Time: 04/11/2023 4:23 AM EDT @LASTAPPOINTMENTTHISPROV@ IMPRESSION and PLAN: Problem List Items Addressed This Visit None Visit Diagnoses Ischemic stroke (HCC) - Primary Obstructive sleep apnea Projectile vomiting, unspecified whether nausea present Continue the [facility] Staff reports that due to vomiting, patient is unable to leave the facility for appointments I explained that he would need to be evaluated by Gastroenterology Sleep study when able No problem-specific Assessment & Plan notes found for this encounter. Rachael Malhotra APRN - JACLYN I spent 30 minutes caring for this patient today, reviewing labs, records, seeing the patient, documenting in the record and arranging for studies. Electronically signed by @BERTHADNR@ on @TDNR@ at @NOWNR@ . The patient has been advised of the potential risks and limitations of this mode of treatment (including but not limited to the absence of in-person examination) and has agreed to be treated in a remote fashion in spite of them. Any and all of the patient's/patient's family's questions on this issue have been answered and I have made no promises or guarantees to the patient. The patient has also been advised to contact this office for worsening conditions or problems, and seek emergency medical treatment and/or call 911 if the patient deems either necessary. The patient stated that they are currently in the [facility]. If the patient is a minor, permission has been obtained by the parent or guardian for the patient to receive medical care at this visit. documented in this encounter [facility] 07-18-2023 Telephone encounter Note He can do an Audio appt [facility] 07-18-2023 Miscellaneous Notes He can do an Audio appt Name of Caller: Catina Contact Reason for Appointment: Atiya states that due to patient being [facility], he does not have access to [facility] and is requesting to do a telehealth appointment. Please advise. Office Name: Rachael Malhotra CNP Medication Refills need, if any: none Medication Name: n/a Virtual visit is fine Name of caller: Atiya Contact phone number: [phone] Relationship to Patient: patient Provider: Rachael Practice: [facility] Chief Complaint/Reason for Call: pt [facility] asking if it could be a phone or virtual visit since the pt has been vomiting and is on a stretcher. Please call atiya to advise. Best time of day caller can be reached: AM Patient advised that office/PCP has 24-48 business hours to return their call: Yes documented in this encounter [facility] 07-15-2023 Telephone encounter Note Name of Caller: Catina Contact Reason for Appointment: Atiya states that due to patient being [facility], he does not have access to [facility] and is requesting to do a telehealth appointment. Please advise. Office Name: Rachael Malhotra CNP Medication Refills need, if any: none Medication Name: n/a [facility] 07-15-2023 Telephone encounter Note Virtual visit is fine [facility] 07-15-2023 Telephone encounter Note Name of caller: Atiya Contact phone number: [phone] Relationship to Patient: patient Provider: Rachael Practice: [facility] Chief Complaint/Reason for Call: pt has an appt 07/19 and the [facility] called to confirm asking if it could be a phone or virtual visit since the pt has been vomiting and is on a stretcher. Please call atiya to advise. Best time of day caller can be reached: AM Patient advised that office/PCP has 24-48 business hours to return their call: Yes [facility] 04-11-2023 Emergency department Note Report to Deuce Tyler at this time. eDuce Tyler at bedside to transport patient to extended care facility. Tayla Epstein RN 04/11/2358 [facility] 04-11-2023 Emergency department Note Report to Deuce Tyler at this time. Deuce Tyler at bedside to transport patient to extended care facility. Tayla Epstein RN 04/11/2358 This RN rolled patient and checked for urinary and bowel incontinence. Urinary and stool incontinence noted at this time. Elana care provided. Clean chucks placed under patient at this time. Clean linens provided to patient. Tayla Epstein RN 04/11/23 0856 Pt resting in bed with eyes closed. Breathing even and unlabored. No signs of distress noted. Pt remains on monitor. Tayla Epstein RN 04/11/23 0744 REPORT TO DENNY Garber RN 04/11/23 0234 RN to bedside to introduce herself to pt, pt laying in bed awake, RN provided pt with blanket per family request, pt on vs monitor, side rails up x2, call light within reach, pt and family deny further needs at this time Abena Garber RN 04/11/23 0122 Bed: 34 Expected date: Expected time: Means of arrival: Comments: 67 M PEG tube Felicita Olivares RN 04/10/23 8665 documented in this encounter [facility] 04-11-2023 Emergency department Note This RN rolled patient and checked for urinary and bowel incontinence. Urinary and stool incontinence noted at this time. Elana care provided. Clean chucks placed under patient at this time. Clean linens provided to patient. Tayla Epstein RN 04/11/23 0856 [facility] 04-11-2023 Emergency department Note Pt resting in bed with eyes closed. Breathing even and unlabored. No signs of distress noted. Pt remains on monitor. Tayla Epstein RN 04/11/23 0744 [facility] 04-11-2023 Hospital Discharg e instructions Maryann Jones DO - 04/11/2023 4:29 AM EDT Please follow up with your primary care doctor. Return to the ED if any concerning symptoms arise. The following attachments cannot be sent through Care Everywhere.Gastrostomy, Permanent and Temporary Discharge Instructions (Moroccan)documented in this encounter [facility] 04-11-2023 Emergency department Note REPORT TO DENNY Garber RN 04/11/23 0234 [facility] 04-11-2023 Emergency department Note RN to bedside to introduce herself to pt, pt laying in bed awake, RN provided pt with blanket per family request, pt on vs monitor, side rails up x2, call light within reach, pt and family deny further needs at this time Abena Garber RN 04/11/23 0122 [facility] 04-10-2023 Emergency department Note Bed: 34 Expected date: Expected time: Means of arrival: Comments: 67 M PEG tube Felicita Olivares RN 04/10/23 2302 [facility] 03-10-2023 Miscellaneous Notes Patient Choice Patient Name: CATINA LAND Date of : 1955 Discharge med rec and covid transmitted to [facility] via [facility] per TCC request. Asked by TCC to set transport to [facility]. Cot transportation arranged through [employer] 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 Pt, pts sister, nurse, unit sec, TCC, and facility informed of time. Images from the original note were not included. Care Management Progress Note Awaiting auth for [facility]. Covid test negative 03/08. No other needs. Discharge Milestones and Delays Expected Date/Time: 03/10/[address] discharge order Enter post-discharge transportation status Complete med reconciliation Request transport Case mgmt discharge readiness Expected Discharge History Expected Date/Time Set By Reviewed At 03/10/2023 Betsey King RN 03/10/2023 8:26 AM auth 03/09/2023 Betsey King RN 03/09/2023 8:21 AM 03/09/2023 Rachael Resendiz RN 03/08/2023 11:15 AM Est TCC 03/07/2023 Marin Sloan MD 03/08/2023 9:32 AM Iv atb, change in SNF 03/09/2023 Betsey King RN 03/08/2023 8:31 AM 03/09/2023 Betsey King RN 03/07/2023 8:37 AM Iv atb, 03/10/2023 Miguel Kaplan MD 03/06/2023 4:25 AM 03/10/2023 Miguel Kaplan MD 03/05/2023 11:44 PM Length of Stay (Days): 0 GMLOS: 3.5 Problem: Knowledge Deficit Goal: Patient/family/caregiver demonstrates understanding of disease process, treatment plan, medications, and discharge instructions Outcome: Progressing Problem: Potential for Compromised Skin Integrity Goal: Skin Integrity is Maintained or Improved Outcome: Progressing Goal: Nutritional status is improving Outcome: Progressing Problem: Urinary Incontinence Goal: Perineal skin integrity is maintained or improved Outcome: Progressing Problem: Problem Interventions Goal: Assess Nutritional Intake Outcome: Progressing The patient is Moderately Stable - Low risk of patient condition declining or worsening The patient's goals for the shift include allison The clinical goals for the shift include pt remains safe and hemodynamically stable Completed cot transport sheet printed and placed in pts chart. Images from the original note were not included. Care Management Progress Note IV atb discontinued. Awaiting auth for [facility]. EDYTA complete. Covid test negative 03/08. Facility updated with 4N phone number should auth be obtained after hours. Called and updated pt's sister Leighann. No further needs. Discharge Milestones and Delays Expected Date/Time: 03/09/[address] discharge order Enter post-discharge transportation status Complete med reconciliation Request transport Case mgmt discharge readiness Expected Discharge History Expected Date/Time Set By Reviewed At 03/09/2023 Betsey King RN 03/09/2023 8:21 AM auth 03/09/2023 Rachael Resendiz RN 03/08/2023 11:15 AM Est TCC 03/07/2023 Marin Sloan MD 03/08/2023 9:32 AM Iv atb, change in SNF 03/09/2023 Betsey King RN 03/08/2023 8:31 AM 03/09/2023 Betsey King RN 03/07/2023 8:37 AM Iv atb, 03/10/2023 Miguel Kaplan MD 03/06/2023 4:25 AM 03/10/2023 Miguel Kaplan MD 03/05/2023 11:44 PM Length of Stay (Days): 0 GMLOS: 3.5 PASRR completed in [facility] for [facility]. Updated PT[facility]OT and MAR [facility]. Await review and response regarding ability to accept. TCC notified. Images from the original note were not included. Care Management Progress Note Remains on IV zosyn- IV vanc discontinued. TF via PEG- tolerating well. PT/OT evals yesterday. [facility] able to accept. Met with pt's sister Leighann- agreeable to above plan. Facility to submit for auth. Will need covid test. EDYTA complete. Discharge Milestones and Delays Expected Date/Time: 03/09/[address] discharge order Enter post-discharge transportation status Complete med reconciliation Case mgmt discharge readiness Expected Discharge History Expected Date/Time Set By Reviewed At 03/09/2023 Rachael Resendiz RN 03/08/2023 11:15 AM Est TCC 03/07/2023 Marin Sloan MD 03/08/2023 9:32 AM Iv atb, change in SNF 03/09/2023 Betsey King RN 03/08/2023 8:31 AM 03/09/2023 Betsey King RN 03/07/2023 8:37 AM Iv atb, 03/10/2023 Miguel Kaplan MD 03/06/2023 4:25 AM 03/10/2023 Miguel Kaplan MD 03/05/2023 11:44 PM Length of Stay (Days): 0 GMLOS: 3.5 Referral placed to SNF- [facility] via [facility] per TCC request. Await review and response regarding ability to accept. TCC notified. Care Managment Initial Assessment Date: 03/07/2023 Patient Name: Catina Land : 1955 Patient Information Source of Information: Patient Ob/Gyn Doctor Name/Contact Information: sister Leighann Cognition/Language: Impaired Permission given to speak with patient field marketing representative/caregiver as indicated: Confirmation of Payer with patient/family: Yes Payer Name: lilian : No Confirmation of Primary Care Physician: Confirmed PCP Name: [facility] Seen in last 2 years?: Yes Primary Caregiver: (SNF managing) If assistance needed, confirmed caregiver ready, willing and able to care for patient at discharge: Confirmed with: Living Arrangements Current Residence: Number of Floors Number of Entry Steps: Bed/Bath Levels: Facility: Nursing Facility Skilled Facility Name: [facility] Plan to Return: No Lives with: Alone Support Systems: Family members Activities of Daily Living Ambulation: Assistance Bathing/Dressing: Assistance Elimination/Continence/Toileting: Assistance Feeding: Assistance Who Assists with Activities of Daily Living: SNF staff Instrumental Activities of Daily Living Prescription Coverage: Yes Pharmacy Used: uses pharmacy at SNF Medication Management: (SNF manages) Transportation/Shopping: Assistance Provider Transportation Mode: Wheelchair van Needs Assistance with Transportation at Discharge: Yes Meal Preparation: Assistance Provider Laundry/Cleaning: Assistance Provider Finances/Bill Paying: Assistance Provider Communication: Assistance Types of Care Services/Equipment Utilized Care Services: Dialysis Type: Durable Medical Equipment: Wheelchair (standard or power) Patient's Goal/Discharge Plan Patient expects to be discharged to: SNF Discharge Planning Actions: Continue to follow, Snf Facility referral indicated [place] of choice: [place] of choice discussed, Choice list provided Patient's Choice Rights and [employer] and Collaborative Relationships Disclosed as Indicated for Post-Acute Care: Yes Interdisciplinary Team Engagement: PT/OT Social Work Referral for: Additional Information: Pt adm for tx/evaluation of sepsis. Receiving IV zosyn and vanc. GI evaluated and signed off-outpt EGD. Vascular evaluated- no surgical plans/interventions at this time. PT/OT to eval. NPO with TF via PEG. Met with pt and sister leighann- introduced self and role. Pt aphasic from prior CVA. Discussed current tx plan and discharge plan- family not certain about return to [facility] d/t care concerns. Provided [facility] list for review. Asking for referral to [facility]- admin assist to place. Will continue to follow. Betsey King RN Met with pt in room to discuss Primary/ Special Election Voting. Pt has no capacity. Return Referral placed to [facility] via [facility] per [facility] request. Await review and response regarding ability to accept. TCC notified. Images from the original note were not included. Hospitalist Summary Note (admitted after midnight) 03/06/2023 7:19 AM [id number]: Please page IMS night Hospitalist for any issues. Subjective: Admit Date: 03/05/2023 PCP: Teodoro Cameron MD Room#: [id number] B Interval note for patient admission after midnight. Patient admitted 03/05/2023 for simple sepsis. 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 Of note, known to have L-atrial appendage thrombus (see CESARIO 02/09/23), per neuro recs while admitted at that time patient, is supposed to stop ASA and start OAC next month (on 03/17). Initially presented from [facility] to ED on 03/04 with diffuse chest pain, imaging c/w mild distal thoracic esophageal thickening c/f esophagitis with non-cardiac CP, treated with famotidine. Was discharged back to facility. Returned to ED on 03/05 for 1-day of N/V with fevers. On arrival, tachycardic (120s) and febrile (102.8). On repeat evaluation, now with MERCEDES, and abdominal imaging with age-indeterminate possible splenic infarcts. Initially reported to have hyperK with transaminitis, however specimen had been hemolyzed and on repeat labs these findings were absent. Simple sepsis Distal esophagitis MERCEDES Splenic infarcts, age-indeterminate Hypokalemia, mild L atrial appendage thrombus, not currently on AC (per neuro, recommend dc ASA and start OAC on 03/17) All labs, diagnostic studies, imaging, and progress notes reviewed. Of note: no leukocytosis, mild MERCEDES, and mild lab abnormalities all consistent with the lab's report of moderately hemolyzed sample (elevated K, AST, ALT, and Tbili are all expected in hemolysis)--on repeat check these were all (as expected) absent. Current plan, with any updates: - pip/tazo + vanc - IVF (currently completing 2nd-liter of 30 mL/kg), switch to LR MIVF after current liter completes (is developing hyperchloremia) - NPO - RUQ US - UA - replete K - PPI bid - GI consult - vascular surgery consult - infarcts likely due to known LA thrombus - AC when able per neuro recs - vaccinate for acquired asplenia (can be done as outpt) Daren Hart MD [facility] documented in this encounter [facility] 03-10-2023 Note Formatting of this n ote might be different from the original. Patient Choice Patient Name: CATINA LAND Date of : 1955 [facility] 03-10-2023 Note Formatting of this n ote might be different from the original. Patient Choice Patient Name: CATINA LAND Date of : 1955 [facility] 03-10-2023 Nurse Note RN called report to Nurse Kaitlin at [facility]. AVS and Mar Report printed for facility copy. [facility] 03-10-2023 Nurse Note RN called report to Nurse Kaitlin at [facility]. AVS and Mar Report printed for facility copy. TF running at 50cc/hr, goal rate now. Pt tolerating. Patient tube feed increased to a rate of 40ml/hr at this time. Patient tolerating. Goal rate is 50ml/hr. documented in this encounter [facility] 03-10-2023 Hospital course Narrative Images from the original note were not included. Hospitalist Discharge Summary Catina Land : 1955 Admit date: 03/05/2023 Discharge date: 03/10/2023 Admitting Physician: Marin Sloan MD Primary Care Physician: Teodoro Cameron MD Code Status: Full Code Discharge Diagnoses: Fever SIRS Mild distal esophageal thickening CVA Left atrial thrombus Splenic infarcts Hospital Course: Patient is 67-year-old with recent CVA, left atrial thrombus, CAD, CABG, hypertension, dyslipidemia, splenic infarcts who comes in from rehab center with nausea, vomiting and fever. Patient was lethargic. He was recently noted to have acute CVA with right hemiparesis. Patient is aphasic. He was placed on broad-spectrum antibiotics and admitted to the hospital. During the previous admission neurology recommended starting anticoagulation on 03/17/2023. Seen by GI and recommended outpatient follow-up for EGD. Pre-CERT obtained patient will be discharged today. I did discuss with patient's sister and updated her today. EXTR of the hip did not show any acute findings. He completed course of antibiotics. He will be placed on Eliquis for anticoagulation starting 03/17/2023. Consults: Gastroenterology Discharge Instructions: Diet: Dietary Orders (From admission, onward) Start Ordered 03/06/23 1536 Diet, tube feeding no tray PEG; Jevity 1.5 Kota; Continuous; Yes; 10; Q 4 Hours; 10; 50; Water; Tap water; 50; Q 4 Hours Diet effective now Question Answer Comment Route: PEG Formula: Jevity 1.5 Kota Delivery Method: Continuous Continuous Advance Tube Feeding? Yes Advancement Volume (mL/hr) 10 Advancement Frequency: Q 4 Hours Continuous Initial Rate (Recommended mL/hr) 10 Continuous Goal Rate (Recommended mL/hr) 50 Flush type: Water Water type: Tap water Flush volume (mL): 50 Flush frequency: Q 4 Hours 03/06/23 1537 Activity: as tolerated Recommended Outpatient Tests: Disposition: Patient discharged in stable condition to SNF. Greater than 30 minutes spent discharging the patient and coming up with patient discharge plan. Discharge Medications: Medication List CONTINUE taking these medications amLODIPine 10 MG tablet Commonly known as: Norvasc Take 1 tablet (10 mg) by mouth daily. Do not start before February 21, 2023. aspirin 81 MG chewable tablet 1 tablet (81 mg) by Per G Tube route daily for 24 days. Do not start before February 21, 2023. atorvastatin 40 MG tablet Commonly known as: Lipitor 1 tablet (40 mg) by Per G Tube route daily. carvedilol 25 MG tablet Commonly known as: Coreg 1 tablet (25 mg) by Per G Tube route in the morning and 1 tablet (25 mg) in the evening. Take with meals. ipratropium-albuterol 0.5-2.5 mg/3 mL nebulizer solution Commonly known as: Duo-Neb Take 3 mL by nebulization in the morning and 3 mL at noon and 3 mL in the evening. melatonin 5 MG tablet Take 1 tablet (5 mg) by mouth Nightly as needed (sleep). STOP taking these medications acetaminophen 325 MG tablet Commonly known as: Tylenol Recommended Follow-up: No follow-up provider specified. Complexity of Follow up: [] Moderate Complexity: follow up within 7-14 calendar days (74948) [x] Severe Complexity: follow up within 7 calendar days (66473) Follow up Testing, Pending results or Referrals at Transitional Care Visit: [x] yes [] no Instructions to MA: Please call patient on day after discharge (must document patient contacted within 2 business days of discharge). Follow up questions for MA: 1. Did you get medications filled and taking them as instructed from discharge? 2. Are you following your discharge instructions from your hospital stay? 3. Please confirm patient is scheduled for a follow up appointment within the above time frame. Signed: Marin Sloan MD Division of Hospitalist Medicine [facility] 03/10/2023, 3:46 PM documented in this encounter [facility] 03-10-2023 Note Formatting of this n ote might be different from the original. Discharge med rec and covid transmitted to [facility] via [facility] per TCC request. T [facility] 03-10-2023 Note Formatting of this n ote might be different from the original. Discharge med rec and covid transmitted to [facility] via [facility] per TCC request. [facility] 03-10-2023 Note Formatting of this n ote might be different from the original. Asked by [facility] to set transport to [facility]. Cot transportation arranged through [employer] 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 Pt, pts sister, nurse, unit sec, TCC, and facility informed of time. [facility] 03-10-2023 Note Formatting of this n ote might be different from the original. Asked by [facility] to set transport to [facility]. Cot transportation arranged through [employer] 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 Pt, pts sister, nurse, unit sec, TCC, and facility informed of time. [facility] 03-10-2023 Note Formatting of this n ote is different from the original. Images from the original note were not included. Care Management Progress Note Awaiting auth for [facility]. Covid test negative 03/08. No other needs. Discharge Milestones and Delays Expected Date/Time: 03/10/[address] discharge order Enter post-discharge transportation status Complete med reconciliation Request transport Case mgmt discharge readiness Expected Discharge History Expected Date/Time Set By Reviewed At 03/10/2023 Betsey King RN 03/10/2023 8:26 AM auth 03/09/2023 Betsey King RN 03/09/2023 8:21 AM 03/09/2023 Rachael Resendiz RN 03/08/2023 11:15 AM Est TCC 03/07/2023 Marin Sloan MD 03/08/2023 9:32 AM Iv atb, change in SNF 03/09/2023 Betsey King RN 03/08/2023 8:31 AM 03/09/2023 Betsey King RN 03/07/2023 8:37 AM Iv atb, 03/10/2023 Miguel Kaplan MD 03/06/2023 4:25 AM 03/10/2023 Miguel Kaplan MD 03/05/2023 11:44 PM Length of Stay (Days): 0 GMLOS: 3.5 [facility] 03-10-2023 Note Formatting of this n ote is different from the original. Images from the original note were not included. Care Management Progress Note Awaiting auth for [facility]. Covid test negative 03/08. No other needs. Discharge Milestones and Delays Expected Date/Time: 03/10/[address] discharge order Enter post-discharge transportation status Complete med reconciliation Request transport Case mgmt discharge readiness Expected Discharge History Expected Date/Time Set By Reviewed At 03/10/2023 Betsey King RN 03/10/2023 8:26 AM auth 03/09/2023 Betsey King RN 03/09/2023 8:21 AM 03/09/2023 Rachael Resendiz RN 03/08/2023 11:15 AM Est TCC 03/07/2023 Marin Sloan MD 03/08/2023 9:32 AM Iv atb, change in SNF 03/09/2023 Betsey King RN 03/08/2023 8:31 AM 03/09/2023 Betsey King RN 03/07/2023 8:37 AM Iv atb, 03/10/2023 Miguel Kaplan MD 03/06/2023 4:25 AM 03/10/2023 Miguel Kaplan MD 03/05/2023 11:44 PM Length of Stay (Days): 0 GMLOS: 3.5 T [facility] 03-10-2023 Plan of care note Problem: Knowledge Deficit Goal: Patient/family/caregiver demonstrates understanding of disease process, treatment plan, medications, and discharge instructions Outcome: Progressing Problem: Potential for Compromised Skin Integrity Goal: Skin Integrity is Maintained or Improved Outcome: Progressing Goal: Nutritional status is improving Outcome: Progressing Problem: Urinary Incontinence Goal: Perineal skin integrity is maintained or improved Outcome: Progressing Problem: Problem Interventions Goal: Assess Nutritional Intake Outcome: Progressing The patient is Moderately Stable - Low risk of patient condition declining or worsening The patient's goals for the shift include allison The clinical goals for the shift include pt remains safe and hemodynamically stable T [facility] 03-10-2023 History of Presen t illness Narrative Images from the original note were not included. Hospitalist Progress Note 03/10/2023 Subjective: Admit Date: 03/05/2023 PCP: Teodoro Cameron MD Room#: [id number]/[id number] B Interval History: Patient is 67-year-old with recent CVA, left atrial thrombus, CAD, CABG, hypertension, dyslipidemia, splenic infarcts who comes in from rehab center with nausea, vomiting and fever. Patient was lethargic. He was recently noted to have acute CVA with right hemiparesis. Patient is aphasic. He was placed on broad-spectrum antibiotics and admitted to the hospital. During the previous admission neurology recommended starting anticoagulation on 03/17/2023. Seen by GI and recommended outpatient follow-up for EGD. 03/10/2023: Patient alert, tries to communicate, chart reviewed, overnight events reviewed, elevating authorization for placement. Objective: Vitals: BP (!) 149/80 (BP Location: Left arm, Patient Position: Sitting) Pulse 80 Temp 36.7 C (98.1 F) (Temporal) Resp 16 SpO2 96% Pulse Ox: SpO2 Av.6 % Min: 94 % Max: 96 % Supplemental O2: O2 Flow Rate (L/min): 2 L/min Pertinent physical exam: Physical Exam Cardiovascular: Rate and Rhythm: Normal rate and regular rhythm. Pulmonary: Effort: Pulmonary effort is normal. Breath sounds: Normal breath sounds. Neurological: Comments: Right hemiparesis noted, aphasia noted Assessment Acute, acute on chronic, unstable/uncontrolled chronic problems: Fever SIRS Mild distal esophageal thickening Stable chronic problems affecting care, new non-acute diagnoses: CVA Left atrial thrombus Splenic infarcts MDM/Plan Continue with broad-spectrum antibiotics, cultures negative so far, no clear source of infection noted. Remains euthermic, no leukocytosis noted. Mild elevation of procalcitonin noted Patient seen by vascular surgery and thought his splenic infarcts were embolic which occurred at the same time as his CVA. No anticoagulation until March 17 per neurology Continue current antihypertensives Continue statin - DVT prophylaxis: enoxaparin and encourage ambulation Advance Directive: Full Code Anticipated Discharge - Date -TBD - Location -SNF - Pending the following -pending placement/authorization Diet, tube feeding no tray PEG; Jevity 1.5 Kota; Continuous; Yes; 10; Q 4 Hours; 10; 50; Water; Tap water; 50; Q 4 Hours 24HR INTAKE/OUTPUT: Intake/Output Summary (Last 24 hours) at 03/10/2023 1107 Last data filed at 03/10/2023 0800 Gross per 24 hour Intake 1359 ml Output -- Net 1359 ml LABS: CBC: Recent Labs 03/08/23 0450 03/09/23 0340 WBC 6.2 7.2 RBC 3.89* 4.15* HGB 11.7* 12.4* HCT 35.7* 38.1* MCV 91.6 91.6 RDW 14.4 14.6* PLT 218 231 BMP: Recent Labs 03/08/23 0450 03/09/23 0341 NA 145 142 K 3.2* 3.4* CL 111* 107 CO2 32* 32* BUN 33* 21* CREATININE 0.83 0.73 GLUCOSE 116* 97 CALCIUM 7.8* 8.2* ANIONGAP 2* 3 LIVER PROFILE: No results for input(s): AST, ALT, BILITOT, ALKPHOS, PROT in the last 72 hours. No lab exists for component: LABALBU PT/INR: No results for input(s): PROTIME, INR in the last 72 hours. CARDIAC ENZYMES: No results for input(s): TROPONINI in the last 72 hours. Procalcitonin: Lab Results Component Value Date PROCAL 0.12 (H) 03/08/2023 Medications: Scheduled amLODIPine, 10 mg, Oral, Daily aspirin, 81 mg, Per G Tube, Daily atorvastatin, 40 mg, Per G Tube, Daily carvedilol, 25 mg, Per G Tube, BID WC enoxaparin, 40 mg, SubCUTAneous, Daily ipratropium-albuterol, 3 mL, Nebulization, TID pantoprazole, 40 mg, IntraVENous, BID And sodium chloride (PF), 10 mL, IntraVENous, BID piperacillin-tazobactam, 3,375 mg, IntraVENous, q8h PRN PRN medications: acetaminophen OR acetaminophen, melatonin, ondansetron ODT OR ondansetron, oxyCODONE, polyethylene glycol (PEG) 3350 Marin Sloan MD Division of Hospitalist Medicine [facility] Images from the original note were not included. Hospitalist Progress Note 03/09/2023 Subjective: Admit Date: 03/05/2023 PCP: Teodoro Cameron MD Room#: [id number]/[id number] B Interval History: Patient is 67-year-old with recent CVA, left atrial thrombus, CAD, CABG, hypertension, dyslipidemia, splenic infarcts who comes in from rehab center with nausea, vomiting and fever. Patient was lethargic. He was recently noted to have acute CVA with right hemiparesis. Patient is aphasic. He was placed on broad-spectrum antibiotics and admitted to the hospital. During the previous admission neurology recommended starting anticoagulation on 03/17/2023. 03/07/2023: Patient alert, remains nonverbal, right hemiparesis noted, discussed with patient's sister at bedside. Seen by GI and recommended outpatient follow-up for EGD. 03/09/2023: Patient alert, chart reviewed, appears fairly comfortable, awaiting authorization for placement. He is afebrile. Objective: Vitals: BP (!) 150/78 Pulse 70 Temp 37 C (98.6 F) (Temporal) Resp 18 SpO2 96% Pulse Ox: SpO2 Av.7 % Min: 94 % Max: 96 % Supplemental O2: O2 Flow Rate (L/min): 2 L/min Pertinent physical exam: Physical Exam Cardiovascular: Rate and Rhythm: Normal rate and regular rhythm. Pulmonary: Effort: Pulmonary effort is normal. Breath sounds: Normal breath sounds. Neurological: Comments: Right hemiparesis noted, aphasia noted Assessment Acute, acute on chronic, unstable/uncontrolled chronic problems: Fever SIRS Mild distal esophageal thickening Stable chronic problems affecting care, new non-acute diagnoses: CVA Left atrial thrombus Splenic infarcts MDM/Plan Continue with broad-spectrum antibiotics, cultures negative so far, no clear source of infection noted. Remains euthermic, no leukocytosis noted. Mild elevation of procalcitonin noted Patient seen by vascular surgery and thought his splenic infarcts were embolic which occurred at the same time as his CVA. No anticoagulation until March 17 per neurology Continue current antihypertensives Continue statin - DVT prophylaxis: enoxaparin and encourage ambulation Advance Directive: Full Code Anticipated Discharge - Date -TBD - Location -SNF - Pending the following -pending placement/authorization Diet, tube feeding no tray PEG; Jevity 1.5 Kota; Continuous; Yes; 10; Q 4 Hours; 10; 50; Water; Tap water; 50; Q 4 Hours 24HR INTAKE/OUTPUT: Intake/Output Summary (Last 24 hours) at 03/09/2023 1037 Last data filed at 03/08/20232051 Gross per 24 hour Intake 943 ml Output 1000 ml Net -57 ml LABS: CBC: Recent Labs 03/07/23 0602 03/08/23 0450 03/09/23 0340 WBC 6.6 6.2 7.2 RBC 4.16* 3.89* 4.15* HGB 12.8* 11.7* 12.4* HCT 37.9* 35.7* 38.1* MCV 91.0 91.6 91.6 RDW 14.7* 14.4 14.6* PLT 208 218 231 BMP: Recent Labs 03/07/23 0601 03/08/23 0450 03/09/23 0341 NA 144 145 142 K 3.9 3.2* 3.4* CL 114* 111* 107 CO2 27 32* 32* BUN 50* 33* 21* CREATININE 0.92 0.83 0.73 GLUCOSE 90 116* 97 CALCIUM 8.5 7.8* 8.2* ANIONGAP 3 2* 3 LIVER PROFILE: No results for input(s): AST, ALT, BILITOT, ALKPHOS, PROT in the last 72 hours. No lab exists for component: LABALBU PT/INR: No results for input(s): PROTIME, INR in the last 72 hours. CARDIAC ENZYMES: No results for input(s): TROPONINI in the last 72 hours. Procalcitonin: Lab Results Component Value Date PROCAL 0.12 (H) 03/08/2023 Medications: Scheduled amLODIPine, 10 mg, Oral, Daily aspirin, 81 mg, Per G Tube, Daily atorvastatin, 40 mg, Per G Tube, Daily carvedilol, 25 mg, Per G Tube, BID WC enoxaparin, 40 mg, SubCUTAneous, Daily ipratropium-albuterol, 3 mL, Nebulization, TID pantoprazole, 40 mg, IntraVENous, BID And sodium chloride (PF), 10 mL, IntraVENous, BID piperacillin-tazobactam, 3,375 mg, IntraVENous, q8h PRN PRN medications: acetaminophen OR acetaminophen, melatonin, ondansetron ODT OR ondansetron, oxyCODONE, polyethylene glycol (PEG) 3350 Marin Sloan MD Division of Hospitalist Medicine [facility] Images from the original note were not included. Hospitalist Progress Note 03/08/2023 Subjective: Admit Date: 03/05/2023 PCP: Teodoro Cameron MD Room#: [id number] Interval History: Patient is 67-year-old with recent CVA, left atrial thrombus, CAD, CABG, hypertension, dyslipidemia, splenic infarcts who comes in from rehab center with nausea, vomiting and fever. Patient was lethargic. He was recently noted to have acute CVA with right hemiparesis. Patient is aphasic. He was placed on broad-spectrum antibiotics and admitted to the hospital. During the previous admission neurology recommended starting anticoagulation on 03/17/2023. 03/07/2023: Patient alert, remains nonverbal, right hemiparesis noted, discussed with patient's sister at bedside. Seen by GI and recommended outpatient follow-up for EGD. 03/08/2023: Patient sleepy today, chart reviewed, discussed with patient's sister at bedside. Awaiting placement. He is afebrile. Cultures remain negative so far. Objective: Vitals: BP (!) 164/82 (BP Location: Right arm, Patient Position: Lying) Pulse 79 Temp 36.8 C (98.3 F) (Temporal) Resp 17 SpO2 97% Pulse Ox: SpO2 Av.9 % Min: 96 % Max: 98 % Supplemental O2: O2 Flow Rate (L/min): 2 L/min Pertinent physical exam: Physical Exam Cardiovascular: Rate and Rhythm: Normal rate and regular rhythm. Pulmonary: Effort: Pulmonary effort is normal. Breath sounds: Normal breath sounds. Neurological: Comments: Right hemiparesis noted, aphasia noted Assessment Acute, acute on chronic, unstable/uncontrolled chronic problems: Fever SIRS Mild distal esophageal thickening Stable chronic problems affecting care, new non-acute diagnoses: CVA Left atrial thrombus Splenic infarcts MDM/Plan Continue with broad-spectrum antibiotics, cultures negative so far, no clear source of infection noted. Remains euthermic, no leukocytosis noted. Patient seen by vascular surgery and thought his splenic infarcts were embolic which occurred at the same time as his CVA. No anticoagulation until March 17 per neurology Continue current antihypertensives Continue statin - DVT prophylaxis: enoxaparin and encourage ambulation Advance Directive: Full Code Anticipated Discharge - Date -TBD - Location -[facility] - Pending the following -pending placement Diet, tube feeding no tray PEG; Jevity 1.5 Kota; Continuous; Yes; 10; Q 4 Hours; 10; 50; Water; Tap water; 50; Q 4 Hours 24HR INTAKE/OUTPUT: Intake/Output Summary (Last 24 hours) at 03/08/2023 1145 Last data filed at 03/08/2023 0621 Gross per 24 hour Intake 875 ml Output 0 ml Net 875 ml LABS: CBC: Recent Labs 03/06/23 0511 03/07/23 0602 03/08/23 0450 WBC 7.4 6.6 6.2 RBC 4.84 4.16* 3.89* HGB 15.0 12.8* 11.7* HCT 44.2 37.9* 35.7* MCV 91.4 91.0 91.6 RDW 14.9* 14.7* 14.4 PLT 217 208 218 BMP: Recent Labs 03/06/2351003/07/23 0601 03/08/23 0450 NA 143 144 145 K 3.4* 3.9 3.2* CL 108* 114* 111* CO2 25 27 32* BUN 61* 50* 33* CREATININE 1.34* 0.92 0.83 GLUCOSE 130* 90 116* CALCIUM 8.8 8.5 7.8* ANIONGAP 9 3 2* LIVER PROFILE: Recent Labs 03/05/23201103/06/23 0511 AST 67* 34 ALT 54* 43 BILITOT 1.5* 1.0 ALKPHOS 74 79 PROT 7.7 6.3 PT/INR: No results for input(s): PROTIME, INR in the last 72 hours. CARDIAC ENZYMES: No results for input(s): TROPONINI in the last 72 hours. Procalcitonin: No results found for: PROCAL Medications: Scheduled amLODIPine, 10 mg, Oral, Daily aspirin, 81 mg, Per G Tube, Daily atorvastatin, 40 mg, Per G Tube, Daily carvedilol, 25 mg, Per G Tube, BID WC enoxaparin, 40 mg, SubCUTAneous, Daily ipratropium-albuterol, 3 mL, Nebulization, TID pantoprazole, 40 mg, IntraVENous, BID And sodium chloride (PF), 10 mL, IntraVENous, BID piperacillin-tazobactam, 3,375 mg, IntraVENous, q8h potassium chloride, 40 mEq, Per G Tube, Once PRN PRN medications: acetaminophen OR acetaminophen, melatonin, ondansetron ODT OR ondansetron, oxyCODONE, polyethylene glycol (PEG) 3350 Marin Sloan MD Division of Hospitalist Medicine [facility] Physical Therapy Facility/Department: 4 Physical Therapy Initial Evaluation NAME: Catina Land : 1955 Date of Service: 03/07/2023 Discharge Recommendations: Facility based therapy PT Equipment Recommendations Equipment Needed: No Assessment Requires PT Follow-Up: Yes Assessment: Patient is a 67 yo male admitted due to sepsis. Patient with recent hospitalization related to CVA with R hemiplegia/neglect and expressive aphasia, admitted from [facility]. Co-eval with OT as patient currently requires 2 skilled therapists for safe mobility. Patient demonstrates R hemiplegia, able to track in both hemispheres this date but increased difficulty to R-side. Patient was dependent x2 skilled therapists for supine <> sit <> supine. He sat EOB with assist for BUE placement, mod/max A required with LUE reaching tasks, demonstrates strong push toward R-side this date. Recommend facility based therapy at discharge. Performance Deficits/Impairments: Decreased balance, Decreased strength, Decreased functional mobility , Decreased endurance, Decreased cognition, Increased pain, Decreased posture, Decreased ADL status, Decreased sensation Treatment Diagnosis: R hemiplegia Decision Making: Medium Complexity Activity Tolerance Activity Tolerance: Patient limited by endurance, Patient limited by fatigue Patient Diagnosis(es): The encounter diagnosis was Sepsis ([facility]). 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 has a past surgical history that includes Coronary artery bypass graft (04/2014) and Coronary angioplasty (03/28/2014). Restrictions Restrictions/Precautions Restrictions/Precautions: Fall Risk, Modified Diet Required Braces or Orthoses?: No Position Activity Restriction Other position/activity restrictions: PEG/tube feeds; PIV, no alarms engaged Vision/Hearing Vision: Impaired (Tracking visual stimuli in both hemispheres but more difficulty attending to right hemisphere. Able to track and cross midline to right side and attend x 15 second intervals with mod cues) Hearing: Functional/adequate for paticipation in therapy Cognition/Orientation Overall Cognitive Status: Exceptions Cognition Comment: Minimal eye contact; minimally verbal with expressive aphasia-like deficits; Alert and attending to session with min cues; Following 1-step commands 80% of session. Overall Orientation Status: (responds to name, difficult to assess further due to expressive aphasia) Subjective General Chart Reviewed: Yes Patient Assessed for Rehabilitation Services: Yes Additional Pertinent Hx: CVA with R-hemiplegia/neglect and expressive aphasia Response To Previous Treatment: Not applicable Family / Caregiver Present: Yes (sister) Diagnosis: sepsis Follows Commands: Impaired Subjective Subjective: Patient with recent hospitalization related to CVA with R hemiplegia/neglect and expressive aphasia. Co-eval with OT as patient requires 2 skilled therapists for safe mobility at this time. Patient awake in bed with sister at bedside, able to nod head in agreement to therapy eval. Patient Stated Goal: Unable to verbalize due to expressive aphasia Pain Assessment Pain Assessment: (noted occasional facial grimacing with passive RUE movement) Pre Treatment Pain Screening Intervention List: Patient able to continue with treatment Social/Functional History Social/Functional History Additional Comments: Per chart, admitted from [facility] where pt was receiving therapy s/p recent stroke. Sister reports pt was getting up to wheelchair x 2 person assist. Prior to stroke, pt was indep. Objective Observation/Palpation Posture: Fair AROM RLE (degrees) RLE General AROM: no active movement AROM LLE (degrees) LLE AROM : WFL Strength RLE Comment: 0/5 throughout Strength LLE Comment: at least 3/5 throughout Sensation Overall Sensation Status: (suspect reduced sensation throughout RUE and RLE, shrugs shoulders when asked about sensation, unable to comment further due to expressive aphasia) Bed mobility Supine to Sit: Dependent/Total, 2 Person assistance Sit to Supine: Dependent/Total, 2 Person assistance Scooting: Dependent/Total, 2 Person assistance Comment: HOB elevated, use of glide sheet Transfers Sit to Stand: Unable to assess Balance Sitting - Static: Poor, + Sitting - Dynamic: Poor Comments: Static sitting EOB with mod/max A required, verbal and tactile cues for L hand placement, assisted with R hand placement to encourage weight bearing through RUE. Patient with strong push toward R-side, demonstrated improved upright positioning when LUE support taken away, improving to mod A. Performed reaching with LUE, mod/max A needed, demonstrates occasional strong retrograde lean. Plan Times per Week: 3-5 Plan Weeks: 4 Current Treatment Recommendations: Strengthening, ROM, Balance Training, Functional Mobility Training, Transfer Training, Gait Training, Home Exercise Program, Safety Education & Training, Patient/Caregiver Education & Training, Neuromuscular Re-education Safety Safety Devices Safety Devices in Place: Yes Type of Devices: Patient at risk for falls, Call light within reach, Left in bed Restraints Restraints Initially in Place: No Outcomes Score AM-PAC Score AM-PAC Inpatient Mobility Raw Score: 6 Mobility Inpatient CMS G-Code Modifier: CN Goals Encounter Problems Encounter Problems (Active) Balance Patient will maintain static sitting balance for 5 minutes with CGA in order to demonstrate improved postural control and prepare for out of bed mobility. Start: 03/07/23 Expected End: 04/04/23 Patient will perform dynamic sitting balance tasks with min assist in order to demonstrate improved postural control and prepare for out of bed mobility. Start: 03/07/23 Expected End: 04/04/23 Transfers Patient will perform bed mobility with mod assist x2 in order to improve independence and prepare for out of bed mobility. Start: 03/07/23 Expected End: 04/04/23 Patient will complete functional transfer with no assistive device with mod assist x2 in order to prepare for ambulation. Start: 03/07/23 Expected End: 04/04/23 Education Education Given To: Patient, Family Education Provided: Goals, PT Role, Plan of Care, Discharge recommendations, Functional Mobility Training Education Provided Comments: seated balance Education Method: Verbal Barriers to Learning: Other (Comment), Cognition (expressive aphasia) Education Outcome: Verbalized understanding, Demonstrated understanding Therapy Time Individual Co-treatment Time In 1333 Time Out 1359 Minutes 26 Timed Code Treatment Minutes: 10 Minutes (FA) Amberly Hensley PT This provider wore mask and gloves throughout entire session with patient. Patient s Physical Therapy Plan of Care supervision is transferred to [facility] Physical Therapist. Occupational Therapy Facility/Department: Occupational Therapy Initial Evaluation NAME: Catina Land : 1955 Date of Service: 03/07/2023 Discharge Recommendations: Facility based therapy Assessment REQUIRES OT FOLLOW-UP: Yes Performance deficits / Impairments: Decreased functional mobility , Decreased safe awareness, Decreased balance, Decreased coordination, Decreased ADL status, Decreased cognition, Decreased vision/visual deficit, Decreased posture, Decreased ROM, Decreased endurance, Decreased high-level IADLs, Decreased strength, Decreased fine motor control, Decreased sensation Assessment: OT johnathon completed. Pt admitted from [facility] with sepsis, nausea and vomiting. Recent stroke last month with right hemibody deficits. All activity limited to EOB today. Tends to push towards right side with EOB balance. Noted with bilateral UE edema, positioned in elevation at end of session. Right UE flaccidity, left UE now acutely weak. Will need ongoing therapies, recommending FBT level. Prognosis: Fair Decision Making: Medium Complexity Activity Tolerance Activity Tolerance: Patient limited by fatigue, Treatment limited secondary to decreased cognition, Patient Tolerated treatment well Patient Diagnosis(es): The encounter diagnosis was Sepsis ([facility]). 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 has a past surgical history that includes Coronary artery bypass graft (04/2014) and Coronary angioplasty (03/28/2014). Restrictions Restrictions/Precautions Restrictions/Precautions: Fall Risk, Modified Diet Required Braces or Orthoses?: No Position Activity Restriction Other position/activity restrictions: PEG/tube feeds; IV Vision/Hearing Vision: Impaired (Tracking visual stimuli in both hemispheres but more difficulty attending to right hemisphere. Able to track and cross midline to right side and attend x 15 second intervals with mod cues.) Hearing: Functional/adequate for participation in therapy Cognition/Orientation Overall Cognitive Status: Exceptions Cognition Comment: Minimal eye contact; minimally verbal with expressive aphasia-like deficits; Alert and attending to session with min cues; Following 1-step commands 80% of session. Overall Orientation Status: (Responding to name) Subjective General Chart Reviewed: Yes Patient Assessed for Rehabilitation Services: Yes Additional Pertinent Hx: Recent stroke with residual right sided deficits (02/2023)- was discharged to [facility] Family / Caregiver Present: Yes (Sister present during session.) Diagnosis: Sepsis, nausea and vomiting. General Comments Comments: Agreeable to OT. Flat affect. Expressive aphasia. No formal c/o pain, did not appear to be in distress. Patient Stated Goal: Patient was not cognitively aware and was unable to participate in goal setting at this time. Social/Functional History Social/Functional History Additional Comments: Per chart, admitted from [facility] where pt was receiving therapy s/p recent stroke. Sister reports pt was getting up to wheelchair x 2 person assist. Prior to stroke, pt was indep. Objective Balance Sitting Balance: Maximum assistance (EOB neuro activity requiring 2 skilled therapists for balance and to engage/integrate bilateral UEs and address posture/right sided attention. Worked on functional left UE reach/crossing midline, PROM of right UE with focus on tracking right UE in right visual field). ADL LE Dressing: Dependent/Total (Socks donned in prep for EOB activity) Tone RUE RUE Tone: Hypotonic Tone LUE LUE Tone: Normotonic Coordination Movements Are Fluid And Coordinated: No Coordination and Movement Description: Fine motor impairments, Gross motor impairments, Right UE, Left UE (Right deficits significantly greater than left) Bed mobility Supine to Sit: Dependent/Total, 2 Person assistance Sit to Supine: Dependent/Total, 2 Person assistance Scooting: Dependent/Total, 2 Person assistance Transfers Sit to stand: Unable to assess Transfer Comments: Not safe to attempt due to inconsistent sitting balance. Perception Overall Perceptual Status: Impaired Unilateral Attention: Cues to attend to right side of body, Cues to attend right visual field (Mod cues to attend to right hemibody) Sensation Overall Sensation Status: Impaired (Suspecting decreased sensation to right UE, unable to comment on further secondary to aphasia and pt "shrugs" when asked about sensation to suggest that he is unsure. Able to detect light touch left UE but unable to localize due to aphasia.) LUE PROM: WFL LUE AROM : Exceptions LUE General AROM: Shoulder flexion ~100 degrees, WFL distally. Limited by acute weakness? RUE PROM: WFL RUE AROM : Exceptions RUE General AROM: No AROM noted throughout. LUE Strength LUE Strength Comment: 3-/5 at shoulder, 3/5 distally by functional observation. RUE Strength RUE Strength Comment: 0/5 throughout Plan Times per Week: 3-5 x Plan Weeks: 4 Current Treatment Recommendations: Strengthening, ROM, Balance Training, Functional Mobility Training, Endurance Training, Safety Education & Training, Gait Training, Patient/Caregiver Education & Training, Self-Care / ADL, Cognitive/Perceptual Training, Neuromuscular Re-education, Equipment Evaluation, Education, & procurement, Cognitive Reorientation, Sensory Integration, Visual Training, Positioning Safety Safety Devices in place: Yes Type of devices: Left in bed, Call light within reach, Patient at risk for falls, Bed alarm in place, Nurse notified Restraints Initially in place: No AM-PAC Score AM-PAC Inpatient Daily Activity Raw Score: 6 ADL Inpatient CMS G-Code Modifier: CN Goals Encounter Problems Encounter Problems (Active) Balance Static sitting balance EOB min assist in prep for OOB ADLs. Start: 03/07/23 Expected End: 04/04/23 Grooming Wash face min assist. Start: 03/07/23 Expected End: 04/04/23 OT Misc Misc 1 Start: 03/07/23 Expected End: 04/04/23 Locate right UE in 3/3 trials with min cues. Misc 2 Start: 03/07/23 Expected End: 04/04/23 Complete AROM left UE exercises 10 x 2 sets for edema control and promoting functional ROM min cues. Vision Locate 3 ADL items in right visual field with min cues. Start: 03/07/23 Expected End: 04/04/23 Education Education Given To: Patient Education Provided: OT Role, Plan of Care Education Method: Verbal Barriers to Learning: Cognition Education Outcome: Continued education needed Therapy Time Individual Co-treatment Time In 1333 Time Out 1359 Minutes 26 Timed Code Treatment Minutes: 10 Minutes (1- Neuro) Patient's Occupational Therapy Plan of Care supervision is transferred to [facility] Occupational Therapist. Goals and/or treatment plan was established in collaboration with patient/family/other representatives. Odessa Kincaid OTR/L Vancomycin therapy has been discontinued by Dr. Amira Damico on 03/07/23. Thank you for the consult. Pharmacy signing off for vancomycin dosing. DATE: 03/07/23 TIME: 2:30 PM Gris De La [facility] Clinical Pharmacist Available via NetMovie Images from the original note were not included. Hospitalist Progress Note 03/07/2023 Subjective: Admit Date: 03/05/2023 PCP: Teodoro Cameron MD Room#: N4-464/N4-464 B Interval History: Patient is 67-year-old with recent CVA, left atrial thrombus, CAD, CABG, hypertension, dyslipidemia, splenic infarcts who comes in from rehab center with nausea, vomiting and fever. Patient was lethargic. He was recently noted to have acute CVA with right hemiparesis. Patient is aphasic. He was placed on broad-spectrum antibiotics and admitted to the hospital. During the previous admission neurology recommended starting anticoagulation on 03/17/2023. 03/07/2023: Patient alert, remains nonverbal, right hemiparesis noted, discussed with patient's sister at bedside. Seen by GI and recommended outpatient follow-up for EGD. Objective: Vitals: BP 138/78 Pulse 68 Temp 36.1 C (97 F) (Temporal) Resp 16 SpO2 97% Pulse Ox: SpO2 Av % Min: 94 % Max: 98 % Supplemental O2: O2 Flow Rate (L/min): 2 L/min Pertinent physical exam: Physical Exam Cardiovascular: Rate and Rhythm: Normal rate and regular rhythm. Pulmonary: Effort: Pulmonary effort is normal. Breath sounds: Normal breath sounds. Neurological: Mental Status: He is alert. Comments: Right hemiparesis noted, aphasia noted Assessment Acute, acute on chronic, unstable/uncontrolled chronic problems: Fever Concern for sepsis Mild distal esophageal thickening Stable chronic problems affecting care, new non-acute diagnoses: CVA Left atrial thrombus Splenic infarcts MDM/Plan Continue with broad-spectrum antibiotics, cultures negative so far, no clear source of infection noted. No leukocytosis or fever noted here. Patient seen by vascular surgery and thought his splenic infarcts were embolic which occurred at the same time as his CVA. No anticoagulation until March 17 per neurology Continue current antihypertensives Continue statin - DVT prophylaxis: enoxaparin and encourage ambulation Advance Directive: Full Code Anticipated Discharge - Date -TBD - Location -rehab - Pending the following -pending clinical improvement Diet, tube feeding no tray PEG; Jevity 1.5 Kota; Continuous; Yes; 10; Q 4 Hours; 10; 50; Water; Tap water; 50; Q 4 Hours 24HR INTAKE/OUTPUT: Intake/Output Summary (Last 24 hours) at 03/07/2023 1212 Last data filed at 03/06/2023 2151 Gross per 24 hour Intake -- Output 0 ml Net 0 ml LABS: CBC: Recent Labs 03/05/23201103/06/23 0511 03/07/23 0602 WBC 10.1 7.4 6.6 RBC 5.46 4.84 4.16* HGB 16.6 15.0 12.8* HCT 48.7 44.2 37.9* MCV 89.1 91.4 91.0 RDW 15.0* 14.9* 14.7* PLT 303 217 208 BMP: Recent Labs 03/05/23201103/06/23 0511 03/07/23 0601 NA 140 143 144 K 5.5* 3.4* 3.9 CL 107 108* 114* CO2 22 25 27 BUN 62* 61* 50* CREATININE 1.36* 1.34* 0.92 GLUCOSE 127* 130* 90 CALCIUM 9.1 8.8 8.5 ANIONGAP 10 9 3 LIVER PROFILE: Recent Labs 03/05/23201103/06/23 0511 AST 67* 34 ALT 54* 43 BILITOT 1.5* 1.0 ALKPHOS 74 79 PROT 7.7 6.3 PT/INR: No results for input(s): PROTIME, INR in the last 72 hours. CARDIAC ENZYMES: Recent Labs 03/04/23174603/04/232103 TROPONINI 0.041* 0.044* Procalcitonin: No results found for: PROCAL Medications: Scheduled amLODIPine, 10 mg, Oral, Daily aspirin, 81 mg, Per G Tube, Daily atorvastatin, 40 mg, Per G Tube, Daily carvedilol, 25 mg, Per G Tube, BID WC enoxaparin, 40 mg, SubCUTAneous, Daily ipratropium-albuterol, 3 mL, Nebulization, TID pantoprazole, 40 mg, IntraVENous, BID And sodium chloride (PF), 10 mL, IntraVENous, BID piperacillin-tazobactam, 3,375 mg, IntraVENous, q8h vancomycin, 1,500 mg, IntraVENous, q24h PRN PRN medications: acetaminophen OR acetaminophen, melatonin, ondansetron ODT OR ondansetron, polyethylene glycol (PEG) 3350 Marin Sloan MD Division of Hospitalist Medicine [facility] documented in this encounter [facility] 03-09-2023 Note Formatting of this n ote might be different from the original. Completed cot transport sheet printed and placed in pts chart. [facility] 03-09-2023 Note Formatting of this n ote might be different from the original. Completed cot transport sheet printed and placed in pts chart. [facility] 03-09-2023 Note Formatting of this n ote is different from the original. Images from the original note were not included. Care Management Progress Note IV atb discontinued. Awaiting auth for Cory Escalera. EDYTA complete. Covid test negative 03/08. Facility updated with 4N phone number should auth be obtained after hours. Called and updated pt's sister Leighann. No further needs. Discharge Milestones and Delays Expected Date/Time: 03/09/[address] discharge order Enter post-discharge transportation status Complete med reconciliation Request transport Case mgmt discharge readiness Expected Discharge History Expected Date/Time Set By Reviewed At 03/09/2023 Betsey King RN 03/09/2023 8:21 AM auth 03/09/2023 Rachael Resendiz RN 03/08/2023 11:15 AM Est TCC 03/07/2023 Marin Sloan MD 03/08/2023 9:32 AM Iv atb, change in SNF 03/09/2023 Betsey King RN 03/08/2023 8:31 AM 03/09/2023 Betsey King RN 03/07/2023 8:37 AM Iv atb, 03/10/2023 Miguel Kaplan MD 03/06/2023 4:25 AM 03/10/2023 Miguel Kaplan MD 03/05/2023 11:44 PM Length of Stay (Days): 0 GMLOS: 3.5 T [facility] 03-09-2023 Note Formatting of this n ote is different from the original. Images from the original note were not included. Care Management Progress Note IV atb discontinued. Awaiting auth for [facility] Mirna. EDYTA complete. Covid test negative 03/08. Facility updated with 4N phone number should auth be obtained after hours. Called and updated pt's sister Leighann. No further needs. Discharge Milestones and Delays Expected Date/Time: 03/09/[address] discharge order Enter post-discharge transportation status Complete med reconciliation Request transport Case mgmt discharge readiness Expected Discharge History Expected Date/Time Set By Reviewed At 03/09/2023 Betsey King RN 03/09/2023 8:21 AM auth 03/09/2023 Rachael Resendiz RN 03/08/2023 11:15 AM Est TCC 03/07/2023 Marin Sloan MD 03/08/2023 9:32 AM Iv atb, change in SNF 03/09/2023 Betsey King RN 03/08/2023 8:31 AM 03/09/2023 Betsey King RN 03/07/2023 8:37 AM Iv atb, 03/10/2023 Miguel Kaplan MD 03/06/2023 4:25 AM 03/10/2023 Miguel Kaplan MD 03/05/2023 11:44 PM Length of Stay (Days): 0 GMLOS: 3.5 [facility] 03-09-2023 Note Formatting of this n ote might be different from the original. PASRR completed in [facility]. [facility] 03-09-2023 Note Formatting of this n ote might be different from the original. PASRR completed in [facility]. T [facility] 03-08-2023 Note Formatting of this n ote might be different from the original. Updated PT/OT and MAR sent to [facility] per TCC request. Await review and response regarding ability to accept. TCC notified. [facility] 03-08-2023 Note Formatting of this n ote might be different from the original. Updated PT/OT and MAR [facility] to [facility] TCC request. Await review and response regarding ability to accept. TCC notified. [facility] 03-08-2023 Hospital Discharg e magdalena Sloan MD - 03/08/2023 12:15 PM EDT Continuity of Care Form Patient Name: Catina Land : 1955 Admit date: 03/05/2023 Discharge date: Code Status Order: Full Code Advance Directives: N Admitting Physician: Marin Sloan MD PCP: Teodoro Cameron MD Discharging Nurse: Discharging Hospital Unit/Room#: N4-464/N4-464 B Discharging Unit Phone Number: Emergency Contact: Extended Emergency Contact Information Primary Emergency Contact: Leighann Sanabria (next of kin) Relation: Sister Secondary Emergency Contact: Eileen Restrepo Relation: Other Past Surgical History: Past Surgical History: Procedure Laterality Date CORONARY ANGIOPLASTY 03/28/2014 DANDY to prox RCA x 2 CORONARY ARTERY BYPASS GRAFT 04/2014 SENIOR-LAD, SVG-PD/RCA Immunization History: There is no immunization history on file for this patient. Active Problems: Medical Problems Problem List * (Principal) Sepsis (HCC) Acute ischemic stroke (HCC) Arterial ischemic stroke, MCA (middle cerebral artery), left, acute (HCC) Brain compression (CMS/HCC) (HCC) Cerebral edema (CMS/HCC) (HCC) Troponin level elevated Cognitive impairment Debility Encounter for assessment of decision-making capacity SIRS (systemic inflammatory response syndrome) (HCC) History of coronary artery bypass graft x 2 Hyperlipidemia Presence of stent in coronary artery CAD (coronary artery disease) [place], old Overview Signed 08/23/2022 7:24 AM by Interface, Incoming Problems- [facility] Conversion STEMI-inferior Isolation/Infection: No active isolations No active infections Nurse Assessment: Last Vital Signs: BP (!) 164/82 (BP Location: Right arm, Patient Position: Lying) Pulse 79 Temp 36.8 C (98.3 F) (Temporal) Resp 17 SpO2 96% Last documented pain score (0-10 scale): Last Weight: Wt Readings from Last 1 Encounters: 03/04/23 68.9 kg (152 lb) Mental Status: {EDYTA Patient Mental Status:39764} IV Access: {EDYTA IV Access:80656} Nursing Mobility/ADLs: Walking {JOSE ADL:::"Independent"} Transfer {JOSE ADL:::"Independent"} Bathing {JOSE ADL:::"Independent"} Dressing {JOSE ADL:::"Independent"} Toileting {JOSE ADL:06068::"Independent"} Feeding {JOSE ADL:::"Independent"} Superior Court Clerk {JOSE ADL:::"Independent"} Med Delivery {yes/no:86223} Wound Care Documentation and Therapy: Elimination: Continence: Bowel: {yes/no:52536} Bladder: {yes/no:39549} Urinary Catheter: {EDYTA Urinary Catheter:41851} Colostomy/Ileostomy/Ileal Conduit: {YES / NO:} Date of Last BM: Intake/Output Summary (Last 24 hours) at 03/08/2023 1214 Last data filed at 03/08/2023 0621 Gross per 24 hour Intake 875 ml Output 0 ml Net 875 ml I/O last 3 completed shifts: In: 875 [NG/GT:875] Out: 0 Safety Concerns: {EDYTA Safety Concerns:48034} Impairments/Disabilities: {EDYTA Impairments/Disabilities:70841} Nutrition Therapy: Current Nutrition Therapy: {EDYTA Diet List:01100} Routes of Feeding: {routes of feedin} Liquids: {liquid consistency:16859} Daily Fluid Restriction: {daily fluid restriction:81987} Last Modified Barium Swallow with Video (Video Swallowing Test): {done not done:70465} Treatments at the Time of Hospital Discharge: Respiratory Treatments: Oxygen Therapy: {Therapy; copd oxygen:35470} Ventilator: {EDYTA Ventilator:12499} Rehab Therapies: {GEN THERAPY DISCIPLINE SCAL:1415906} Weight Bearing Status/Restrictions: {POD WEIGHT BEARIN} Other Medical Equipment (for information only, NOT a DME order): {Assistive Devices DME:33028} Other Treatments: Patient's personal belongings (please select all that are sent with patient): {EDYTA Patient Belongings:98819} RN SIGNATURE: {E-signature:36684} CASE MANAGEMENT/SOCIAL WORK SECTION Inpatient Status Date: OBS 03/05/2023 Readmission Risk Assessment Score: @READMISSIONRISKDETAILS@ Discharging to Facility/ Agency Name: [address] [address] Disintegrator/Rail Engineer signature: ICIAN SECTION Prognosis: fair Condition at Discharge: stable Rehab Potential (if transferring to Rehab): fair Recommended Labs or Other Treatments After Discharge: Physician Certification: I certify the above information and transfer of Catina Land is necessary for the continuing treatment of the diagnosis listed and that he requires jail facility for less than 30 days. Update Admission H&P: No change in H&P PHYSICIAN SIGNATURE: documented in this encounter [facility] 03-08-2023 Note Formatting of this n ote is different from the original. Images from the original note were not included. Care Management Progress Note Remains on IV zosyn- IV vanc discontinued. TF via PEG- tolerating well. PT/OT evals yesterday. [facility] able to accept. Met with pt's sister Leighann- agreeable to above plan. Facility to submit for auth. Will need covid test. EDYTA complete. Discharge Milestones and Delays Expected Date/Time: 03/09/[address] discharge order Enter post-discharge transportation status Complete med reconciliation Case mgmt discharge readiness Expected Discharge History Expected Date/Time Set By Reviewed At 03/09/2023 Rachael Resendiz RN 03/08/2023 11:15 AM Est TCC 03/07/2023 Marin Sloan MD 03/08/2023 9:32 AM Iv atb, change in SNF 03/09/2023 Betsey King RN 03/08/2023 8:31 AM 03/09/2023 Betsey King RN 03/07/2023 8:37 AM Iv atb, 03/10/2023 Miguel Kaplan MD 03/06/2023 4:25 AM 03/10/2023 Miguel Kaplan MD 03/05/2023 11:44 PM Length of Stay (Days): 0 GMLOS: 3.5 [facility] 03-08-2023 Note Formatting of this n ote is different from the original. Images from the original note were not included. Care Management Progress Note Remains on IV zosyn- IV vanc discontinued. TF via PEG- tolerating well. PT/OT jenniferals yesterday. [facility] able to accept. Met with pt's sister Leighann- agreeable to above plan. Facility to submit for auth. Will need covid test. EDYTA complete. Discharge Milestones and Delays Expected Date/Time: 03/09/[address] discharge order Enter post-discharge transportation status Complete med reconciliation Case mgmt discharge readiness Expected Discharge History Expected Date/Time Set By Reviewed At 03/09/2023 Rachael Resendiz RN 03/08/2023 11:15 AM Est TCC 03/07/2023 Marin Sloan MD 03/08/2023 9:32 AM Iv atb, change in SNF 03/09/2023 Betsey King RN 03/08/2023 8:31 AM 03/09/2023 Betsey King RN 03/07/2023 8:37 AM Iv atb, 03/10/2023 Miguel Kaplan MD 03/06/2023 4:25 AM 03/10/2023 Miguel Kaplan MD 03/05/2023 11:44 PM Length of Stay (Days): 0 GMLOS: 3.5 [facility] 03-07-2023 Consult note Associated Order (s): IP CONSULT TO DIETITIAN Nutrition Assessment Type and Reason for Visit: Initial, Consult (Tube feed order and management) Nutrition Recommendations/Plan: Continue with current tube feed Jevity 1.5 @ goal rate of 50 ml/hour, patient tolerating well. Recommend patient be discharged on Jevity tube feeding if able. Suspect patient was not tolerating Nutren 2.0 tube feeding at rehab facility. RD continue to monitor overall nutritional status and follow up weekly Malnutrition Assessment: Malnutrition Status: No malnutrition Context: Acute Illness Findings of the 6 clinical characteristics of malnutrition: Energy Intake: Mild decrease in energy intake (Comment) (prior to admission) Weight Loss: No significant weight loss Body Fat Loss: No significant body fat loss Muscle Mass Loss: No significant muscle mass loss Fluid Accumulation: No significant fluid accumulation Senior Executive Compensation Analyst Strength: Not Performed Nutrition Assessment: 67 y.o. male who presents to the emergency department with chief complaint of nausea vomiting, fever as well as altered mental status, possible sepsis. The patient has suffered a recent stroke within the month complicated by hemorrhagic transformation and has profound deficits since that time including aphasia, dysarthria, and right hemiplegia. Patient also with PEG tube. At present he is non-verbal and can provide limited information with yes/no questioning. Patient lives at a rehab facility because he had a stroke and has right-sided hemiparesis. He has been at the facility for around 1 week. He was placed on broad-spectrum antibiotics and admitted to the hospital. Seen by GI and recommended outpatient follow-up for EGD. Patient lying in bed with eyes closed, RD spoke with family in room. Family reports they do not feel patient was tolerating tube feed at facility. Stated that Nutren 2.0 was the only tube feed the facility had. Patient was receiving Nutren 2.0 (50 ml/hour x 20 hours) which provides 2000 kcal and 84 grams protein (29 kcal and 1.2 grams protein/kg/ABW <68.9 kg>). He was also ordered free water flushes of 60 ml water every hour x 20 hours plus medication flushes. Nutren 2.0 is a calorically dense tube feeding formula and designed for those with elevated caloric requirements and/or a fluid restriction and does exceed patients estimated needs. Question patients tolerance of Nutren 2.0 which may have contributed to patients nausea and vomiting prior to admission. During last admission as well as current admission, patient tolerating Jevity 1.5 @ goal rate of 50 ml/hour. Estimated Daily Nutrient Needs: Energy Requirements Based On: Kcal/kg Weight Used for Energy Requirements: Admission Weight for Energy Calculation (kg): 69 kg Total Energy Requirements (kcals/day): 6361-1097 (25-28) Weight Used for Protein Requirements: Admission Weight in Kg Used for Protein Requirements: 69 kg Estimated Total Protein (g/day): 69-76 (1.0-1.1) Estimated Daily Total Fluid (ml/day): 1725 ml/day (25 ml/kg) Wt Readings from Last 5 Encounters: 03/04/23 68.9 kg (152 lb) 02/12/23 69.3 kg (152 lb 12.5 oz) Nutrition Related Findings: +bowel sounds; PEG; Kar 13; paralysis RUE/RLE; moderate edema RUE Wound Type: None BMP: Recent Labs 03/05/23201103/06/23 0511 03/07/23 0601 NA 140 143 144 K 5.5* 3.4* 3.9 CL 107 108* 114* CO2 22 25 27 BUN 62* 61* 50* CREATININE 1.36* 1.34* 0.92 GLUCOSE 127* 130* 90 CALCIUM 9.1 8.8 8.5 MG 2.1 2.0 -- HEPATIC: Recent Labs 03/05/23201103/06/23 0511 AST 67* 34 ALT 54* 43 BILITOT 1.5* 1.0 ALKPHOS 74 79 Current Nutrition Therapies: Enteral Nutrition Feeding Route: PEG EN Formula: Jevity 1.5 Kota EN Schedule: Continuous EN Feeding Regimen: 50 ml/hour Water Flushes: 50 ml every 4 hours (300 ml total) Current EN & Flush Order Provides: Jevity 1.5 @ 50 ml/hour = 1800 kcal; 76 gms protein; 912 ml free water (26 kcal and 1.1 gm protein/kg/ABW <68.9 kg>) Goal EN & Flush Order Provides: Jevity 1.5 @ 50 ml/hour = 1800 kcal; 76 gms protein; 912 ml free water (26 kcal and 1.1 gm protein/kg/ABW <68.9 kg>) Anthropometric Measures: Current Body Weight: 70 kg (154 lb 5.2 oz) (foam wedges under patient) Weight Source: Bed Scale Admission Body Weight: 69 kg (152 lb 1.9 oz) (stated) Usual Body Weight: 69.3 kg (152 lb 12.5 oz) (02/12/23) % Weight Change (Calculated): 1 BMI (kg/m2) (Calculated): 26.5 Nutrition Diagnosis: Inadequate oral intake related to swallowing difficulty as evidenced by nutrition support - enteral nutrition Nutrition Interventions: Nutrition Education/Counseling: No recommendation at this time Coordination of Nutrition Care: Continue to monitor while inpatient Goals: Goals: Meet at least 75% of estimated needs, prior to discharge Nutrition Monitoring and Evaluation: Behavioral-Environmental Outcomes: None Identified Food/Nutrient Intake Outcomes: Enteral Nutrition Intake/Tolerance Physical Signs/Symptoms Outcomes: Biochemical Data, GI Status, Fluid Status or Edema, Weight, Skin Discharge Planning: Enteral Nutrition Fariba Ag MS, RD LD Contact: [email or web address] or [phone] [facility] 03-07-2023 Consult note Associated Order (s): IP CONSULT TO DIETITIAN Nutrition Assessment Type and Reason for Visit: Initial, Consult (Tube feed order and management) Nutrition Recommendations/Plan: Continue with current tube feed Jevity 1.5 @ goal rate of 50 ml/hour, patient tolerating well. Recommend patient be discharged on Jevity tube feeding if able. Suspect patient was not tolerating Nutren 2.0 tube feeding at rehab facility. RD continue to monitor overall nutritional status and follow up weekly Malnutrition Assessment: Malnutrition Status: No malnutrition Context: Acute Illness Findings of the 6 clinical characteristics of malnutrition: Energy Intake: Mild decrease in energy intake (Comment) (prior to admission) Weight Loss: No significant weight loss Body Fat Loss: No significant body fat loss Muscle Mass Loss: No significant muscle mass loss Fluid Accumulation: No significant fluid accumulation Senior Executive Compensation Analyst Strength: Not Performed Nutrition Assessment: 67 y.o. male who presents to the emergency department with chief complaint of nausea vomiting, fever as well as altered mental status, possible sepsis. The patient has suffered a recent stroke within the month complicated by hemorrhagic transformation and has profound deficits since that time including aphasia, dysarthria, and right hemiplegia. Patient also with PEG tube. At present he is non-verbal and can provide limited information with yes/no questioning. Patient lives at a rehab facility because he had a stroke and has right-sided hemiparesis. He has been at the facility for around 1 week. He was placed on broad-spectrum antibiotics and admitted to the hospital. Seen by GI and recommended outpatient follow-up for EGD. Patient lying in bed with eyes closed, RD spoke with family in room. Family reports they do not feel patient was tolerating tube feed at facility. Stated that Nutren 2.0 was the only tube feed the facility had. Patient was receiving Nutren 2.0 (50 ml/hour x 20 hours) which provides 2000 kcal and 84 grams protein (29 kcal and 1.2 grams protein/kg/ABW <68.9 kg>). He was also ordered free water flushes of 60 ml water every hour x 20 hours plus medication flushes. Nutren 2.0 is a calorically dense tube feeding formula and designed for those with elevated caloric requirements and/or a fluid restriction and does exceed patients estimated needs. Question patients tolerance of Nutren 2.0 which may have contributed to patients nausea and vomiting prior to admission. During last admission as well as current admission, patient tolerating Jevity 1.5 @ goal rate of 50 ml/hour. Estimated Daily Nutrient Needs: Energy Requirements Based On: Kcal/kg Weight Used for Energy Requirements: Admission Weight for Energy Calculation (kg): 69 kg Total Energy Requirements (kcals/day): 8686-8498 (25-28) Weight Used for Protein Requirements: Admission Weight in Kg Used for Protein Requirements: 69 kg Estimated Total Protein (g/day): 69-76 (1.0-1.1) Estimated Daily Total Fluid (ml/day): 1725 ml/day (25 ml/kg) Wt Readings from Last 5 Encounters: 03/04/23 68.9 kg (152 lb) 02/12/23 69.3 kg (152 lb 12.5 oz) Nutrition Related Findings: +bowel sounds; PEG; Kar 13; paralysis RUE/RLE; moderate edema RUE Wound Type: None BMP: Recent Labs 03/05/23201103/06/23 0511 03/07/23 0601 NA 140 143 144 K 5.5* 3.4* 3.9 CL 107 108* 114* CO2 22 25 27 BUN 62* 61* 50* CREATININE 1.36* 1.34* 0.92 GLUCOSE 127* 130* 90 CALCIUM 9.1 8.8 8.5 MG 2.1 2.0 -- HEPATIC: Recent Labs 03/05/23201103/06/23 0511 AST 67* 34 ALT 54* 43 BILITOT 1.5* 1.0 ALKPHOS 74 79 Current Nutrition Therapies: Enteral Nutrition Feeding Route: PEG EN Formula: Jevity 1.5 Kota EN Schedule: Continuous EN Feeding Regimen: 50 ml/hour Water Flushes: 50 ml every 4 hours (300 ml total) Current EN & Flush Order Provides: Jevity 1.5 @ 50 ml/hour = 1800 kcal; 76 gms protein; 912 ml free water (26 kcal and 1.1 gm protein/kg/ABW <68.9 kg>) Goal EN & Flush Order Provides: Jevity 1.5 @ 50 ml/hour = 1800 kcal; 76 gms protein; 912 ml free water (26 kcal and 1.1 gm protein/kg/ABW <68.9 kg>) Anthropometric Measures: Current Body Weight: 70 kg (154 lb 5.2 oz) (foam wedges under patient) Weight Source: Bed Scale Admission Body Weight: 69 kg (152 lb 1.9 oz) (stated) Usual Body Weight: 69.3 kg (152 lb 12.5 oz) (02/12/23) % Weight Change (Calculated): 1 BMI (kg/m2) (Calculated): 26.5 Nutrition Diagnosis: Inadequate oral intake related to swallowing difficulty as evidenced by nutrition support - enteral nutrition Nutrition Interventions: Nutrition Education/Counseling: No recommendation at this time Coordination of Nutrition Care: Continue to monitor while inpatient Goals: Goals: Meet at least 75% of estimated needs, prior to discharge Nutrition Monitoring and Evaluation: Behavioral-Environmental Outcomes: None Identified Food/Nutrient Intake Outcomes: Enteral Nutrition Intake/Tolerance Physical Signs/Symptoms Outcomes: Biochemical Data, GI Status, Fluid Status or Edema, Weight, Skin Discharge Planning: Enteral Nutrition Fariba Ag MS, RD LD Contact: [email or web address] [place] *[phone] Pharmacy Managed Vancomycin Dosing Service Progress Note Date: 03/07/23 Room:[facility] Patient Name: Catina Land Allergies: Patient has no known allergies. Age: 67 y.o. Sex: male Ht: @FLOWAMB(11)@ TBW: @FLOWAMB(14)@ BMI: There is no height or weight on file to calculate BMI. DW: 69 kg Calculated CrCl: 75 ml/min Lab Results Component Value Date CREATININE 0.92 03/07/2023 CREATININE 1.34 (H) 03/06/2023 CREATININE 1.36 (H) 03/05/2023 BUN 50 (H) 03/07/2023 BUN 61 (H) 03/06/2023 BUN 62 (H) 03/05/2023 WBC 6.6 03/07/2023 WBC 7.4 03/06/2023 WBC 10.1 03/05/2023 Trough: No results found for: VANCOTROUGH Random: Lab Results Component Value Date VANCORANDOM 16.8 03/07/2023 Infectious Diagnosis: sepsis (goal trough = 400-600mg/l*hr) Antimicrobials: Patient recently received an antibiotic (last 12 hours) Date/Time Action Medication Dose Rate 03/07/23 0249 New Bag piperacillin-tazobactam (Zosyn) IVPB 3,375 mg 3,375 mg 12.5 mL/hr 03/06/23 2328 New Bag vancomycin (Vancocin) 1000 mg in dextrose 5% 200 mL IVPB (premix) 1,000 mg 133.3 mL/hr Assessment/Plan: Renal fcn improved slightly, increased vancomycin dose to 1.5 gm q24 hrs and drawing vanco level tomorrow 03/08 Please page/call with questions. Date: 03/07/23 Time: 8:44 AM Name: Andrew Gallo RPh, Pager: Phone: [phone] Associated Order(s): Inpatient consult to Gastroenterology GASTROENTEROLOGY CONSULTATION NOTE Inpatient consult to Gastroenterology Consult performed by: Cyndi Cervantes, SOCCER REFEREE - ETHYLBENZENE CRACKING SUPERVISOR Consult ordered by: Burke Faith MD Patient: Catina Land : 1955 PCP: Teodoro Cameron MD Reason for Consult: Esophagitis CHIEF COMPLAINT: fevers History Obtained From: patient, electronic chart HISTORY OF PRESENT ILLNESS: The patient is a 67 y.o. male with significant past medical history of recent stroke 02/05/23 resulting in hemiparesis and PEG tube placement, CAD, CABG x2, [place], and who presents with fevers concerning for sepsis. Blood cultures currently negative. CT of chest showing mild circumferential wall thickening of distal esophagus. Past Medical History: Past Medical History: Diagnosis Date CAD (coronary artery disease) History of coronary artery bypass graft x 2 04/2014 Hyperlipidemia [place], old 03/28/2014 STEMI-inferior Pneumonia Presence of stent in coronary artery 03/2014 Third degree AV block (CMS/HCC) (HCC) 03/28/2014 during inferior STEMI Past Surgical History: Past Surgical History: Procedure Laterality Date CORONARY ANGIOPLASTY 03/28/2014 DANDY to prox RCA x 2 CORONARY ARTERY BYPASS GRAFT 04/2014 SENIOR-LAD, SVG-PD/RCA Social History Socioeconomic History Marital status: Single Spouse name: Not on file Number of children: Not on file Years of education: Not on file Highest education level: Not on file Occupational History Not on file Tobacco Use Smoking status: Every Day Packs/day: 1.00 Types: Cigarettes Start date: 03/17/1975 Smokeless tobacco: Not on file Substance and Sexual Activity Alcohol use: Yes Drug use: No Sexual activity: Not on file Other Topics Concern Not on file Social History Narrative Not on file Social Determinants of Health Financial Resource Strain: Not on file Food Insecurity: Not on file Transportation Needs: Not on file Physical Activity: Not on file Stress: Not on file Social Connections: Not on file Intimate Partner Violence: Not on file Housing Stability: Not on file Family History Problem Relation Name Age of Onset Coronary artery disease Mother Cancer Mother Cancer Father Allergies: Patient has no known allergies. Home Medications: Prior to Admission medications Medication Sig Start Date End Date Taking? Authorizing Provider acetaminophen (Tylenol) 325 MG tablet Take 2 tablets (650 mg) by mouth every 6 hours as needed for mild pain (1-3) or fever (For temp greater than 100.4 F (38 C)) for up to 10 days. 02/20/23 03/02/23 Wilmer Sheldon, DO amLODIPine (Norvasc) 10 MG tablet Take 1 tablet (10 mg) by mouth daily. Do not start before February 21, 2023. 02/21/23 03/23/23 Wilmer Sheldon, DO aspirin 81 MG chewable tablet 1 tablet (81 mg) by Per G Tube route daily for 24 days. Do not start before February 21, 2023. 02/21/23 03/17/23 Wilmer Ilodi, DO atorvastatin (Lipitor) 40 MG tablet 1 tablet (40 mg) by Per G Tube route daily. 02/20/23 05/21/23 Wilmer Sheldon, DO carvedilol (Coreg) 25 MG tablet 1 tablet (25 mg) by Per G Tube route in the morning and 1 tablet (25 mg) in the evening. Take with meals. 02/20/23 03/22/23 Wilmer Sheldon, DO ipratropium-albuterol (Duo-Neb) 0.5-2.5 mg/3 mL nebulizer solution Take 3 mL by nebulization in the morning and 3 mL at noon and 3 mL in the evening. 02/25/23 02/25/24 Sarah Beth Kerrhowardryal melatonin 5 MG tablet Take 1 tablet (5 mg) by mouth Nightly as needed (sleep). 02/20/23 Wilmer Sheldon, DO Current Medications: Scheduled Meds:amLODIPine, 10 mg, Oral, Daily aspirin, 81 mg, Per G Tube, Daily atorvastatin, 40 mg, Per G Tube, Daily carvedilol, 25 mg, Per G Tube, BID WC enoxaparin, 40 mg, SubCUTAneous, Daily ipratropium-albuterol, 3 mL, Nebulization, TID pantoprazole, 40 mg, IntraVENous, BID And sodium chloride (PF), 10 mL, IntraVENous, BID piperacillin-tazobactam, 3,375 mg, IntraVENous, q8h vancomycin, 1,000 mg, IntraVENous, q24h Continuous Infusions:lactated Ringer's, 100 mL/hr PRN Meds:PRN medications: acetaminophen OR acetaminophen, melatonin, ondansetron ODT OR ondansetron, polyethylene glycol (PEG) 3350 REVIEW OF SYSTEMS: Ten-point review of symptoms was noted and reviewed in the chart. PHYSICAL EXAM: VS: BP 130/76 Pulse 80 Temp 36.8 C (98.2 F) (Temporal) Resp 16 SpO2 98% There is no height or weight on file to calculate BMI. GENERAL: Pleasant and NAD. HEENT: NCAT, PERRLA, EOMI, Scleral anicteric. Oropharhynx clear with no erythema or exudate. Neck supple, no cervical LAD or thyromegaly. CV: RRR, NL S1/S2, no murmurs. Distal pulses palpable and equal bilateral LUNGS: CTA bilateral Normal percussion and palpation. No W/R/R. Abdomen: + BS, soft, non-tender and non-distended. No hepatosplenomegaly. No mass felt. No rebound or guarding. No hernia. Extremities: No edema. No muscle atrophy. Skin: No skin lesion or breakdown. Lymph: No cervical or supraclavicular LAD. Musculoskeletal: Strength 5/5 in all exts. No joint tenderness or effusions in LEs. Neurologic: A&O x 3, CN II-XII grossly intact motor and sensory. Psych: Normal affect and speech. DATA: CBC: Recent Labs 03/04/23 1747 03/05/23201103/06/23 0511 WBC 10.9* 10.1 7.4 HGB 14.8 16.6 15.0 HCT 44.4 48.7 44.2 PLT 251 303 217 CMP: Recent Labs 03/05/23201103/06/23 0511 NA 140 143 K 5.5* 3.4* CL 107 108* CO2 22 25 BUN 62* 61* CREATININE 1.36* 1.34* GLUCOSE 127* 130* CALCIUM 9.1 8.8 HEPATIC: Recent Labs 03/05/23201103/06/23 0511 AST 67* 34 ALT 54* 43 BILITOT 1.5* 1.0 ALKPHOS 74 79 LIPASE/AMYLASE: Recent Labs 03/05/232011 LIPASE 35 LACTATE: No lab exists for component: LACTA INR: No results for input(s): INR in the last 72 hours. Radiological Review: 03/04/23 CT of Chest Pulmonary arteries: There is technically adequate opacification of the pulmonary arteries. No pulmonary embolus is identified. Aorta/Great Vessels: No aneurysmal dilatation or dissection. Lungs: Mild pulmonary emphysema with bibasilar atelectasis. No suspicious nodules or acute consolidative process. Pleura: No pleural effusion Heart: The heart is normal in size with no pericardial effusion. Mediastinum/Lary: A few borderline and mildly enlarged mediastinal and bilateral hilar lymph nodes measure up to 1.2 cm in short axis. Thyroid and Esophagus: Mild circumferential wall thickening of the distal esophagus. The thyroid is normal. Visualized Upper Abdomen: Bilateral adrenal thickening and mild nodularity, unchanged from 2017. Fluid attenuation right renal cyst. Gastrostomy tube in adequate position. No other significant abnormality. Chest wall/Lower neck: No masses or lymphadenopathy Bones: No suspicious osseous lesions. Mild degenerative changes of the thoracic spine. Median sternotomy wires. IMPRESSION: 1. No pulmonary embolism or acute consolidative process in the lungs. 2. A few borderline and mildly enlarged mediastinal and bilateral hilar lymph nodes are nonspecific in etiology, similar in appearance to 2017. 3. Mild circumferential wall thickening of the distal esophagus, likely related to reflux esophagitis. IMPRESSION/PLAN: Sepsis Mild thickening of distal esophagus on CT Recent Ischemic stroke 02/05 -CT reviewed with attending and overall mild thickening of distal esophagus not contributing to overall clinical presentation. No urgent EGD required at this time. -Agree with sepsis work up -Continue supportive care -Continue PPI daily -At this time GI will sign off. I have personally seen, interviewed, and examined the patient. I have reviewed the case with the Medical Student/Resident/PA and reviewed their consult/progress note. I agree with all of the above. 67 year old female male with ischemic stroke admitted with sepsis. Patient had thickening of esophagus seen on CT scan. Patient has no issues at this time. GI to sign off. No further work up necessary. Himanshu Wade MD, FACG, AGAF Electronically signed by HIMANSHU WADE MD 03/06/2023 2:01 PM Associated Order(s): IP CONSULT TO VASCULAR SURGERY Vascular Surgery Consultation Note Reason for Consult: splenic infarcts HISTORY OF PRESENT ILLNESS: The patient is a 67 y.o. male who is admitted to the hospital for treatment of altered mental status, possible sepsis. The patient has suffered a recent stroke within the month complicated by hemorrhagic transformation and has profound deficits since that time including aphasia, dysarthria, and right hemiplegia. At present he is non-verbal and can provide limited information with yes/no questioning. Per chart review the patient was recommended to begin anticoagulation on 03/17/23 per neurology for treatment of a known left atrial appendage thrombus which was identified on CESARIO on 02/09. He remains on ASA81 until then. The patient was recently admitted from SNF with concern for possible sepsis. Workup upon admission included a CT A/P which demonstrates a couple of vague areas of decreased density within the periphery of the spleen, medially and posteriorly, which could represent splenic infarcts, age uncertain. Vascular surgery is consulted for evaluation and treatment. IMPRESSION: Catina Land is a 67 y.o. male with imaging findings concerning for scattered splenic infarction from which the patient is relatively asymptomatic. Patient has a known left atrial appendage thrombus which is likely the etiology of his splenic infarcts which are minimally symptomatic. RECOMMENDATIONS: -No acute surgical intervention -Recommend therapeutic anticoagulation for the splenic infarct(s) -Recommend neurology consult to clarify when he is at acceptable risk to initiate anticoagulation given recent stroke with hemorrhagic transformation -Recommend functional splenectomy vaccines: -haemophilus B-polysac conjugate vaccine (HIBERIX) either or (ActHIB) injection 0.5 mL -meningococcal oligosaccharide (MENVEO) injection -pneumococcal 20-valent conjugate (PREVNAR 20) injection -meningococcal group B (BEXSERO) injection -Vascular surgery will sign off. Thank you for this consult. We appreciate the opportunity to care for this patient. Please reach out with questions and concerns. This plan was discussed with Dr. Singh Past Medical History: Diagnosis Date CAD (coronary artery disease) History of coronary artery bypass graft x 2 04/2014 Hyperlipidemia [place], old 03/28/2014 STEMI-inferior Pneumonia Presence of stent in coronary artery 03/2014 Third degree AV block (CMS/HCC) (HCC) 03/28/2014 during inferior STEMI Past Surgical History: Procedure Laterality Date CORONARY ANGIOPLASTY 03/28/2014 DANDY to prox RCA x 2 CORONARY ARTERY BYPASS GRAFT 04/2014 SENIOR-LAD, SVG-PD/RCA Current Medications: dextrose 5 % and sodium chloride 0.9 %, 125 mL/hr, Last Rate: 125 mL/hr (03/06/23 9932) PRN medications: acetaminophen OR acetaminophen, melatonin, ondansetron ODT OR ondansetron, polyethylene glycol (PEG) 3350 amLODIPine, 10 mg, Oral, Daily aspirin, 81 mg, Per G Tube, Daily atorvastatin, 40 mg, Per G Tube, Daily carvedilol, 25 mg, Per G Tube, BID WC enoxaparin, 40 mg, SubCUTAneous, Daily ipratropium-albuterol, 3 mL, Nebulization, TID pantoprazole, 40 mg, IntraVENous, qAM AC And sodium chloride (PF), 10 mL, IntraVENous, qAM AC piperacillin-tazobactam, 3,375 mg, IntraVENous, q8h vancomycin, 1,000 mg, IntraVENous, q24h Allergies: Patient has no known allergies. Social History Socioeconomic History Marital status: Single Spouse name: Not on file Number of children: Not on file Years of education: Not on file Highest education level: Not on file Occupational History Not on file Tobacco Use Smoking status: Every Day Packs/day: 1.00 Types: Cigarettes Start date: 03/17/1975 Smokeless tobacco: Not on file Substance and Sexual Activity Alcohol use: Yes Drug use: No Sexual activity: Not on file Other Topics Concern Not on file Social History Narrative Not on file Social Determinants of Health Financial Resource Strain: Not on file Food Insecurity: Not on file Transportation Needs: Not on file Physical Activity: Not on file Stress: Not on file Social Connections: Not on file Intimate Partner Violence: Not on file Housing Stability: Not on file Family History Problem Relation Name Age of Onset Coronary artery disease Mother Cancer Mother Cancer Father REVIEW OF SYSTEMS: The chart was reviewed. Review of Systems Unable to perform ROS: Patient nonverbal LABS: Lab Results Component Value Date CREATININE 1.34 (H) 03/06/2023 Lab Results Component Value Date WBC 7.4 03/06/2023 HGB 15.0 03/06/2023 HCT 44.2 03/06/2023 MCV 91.4 03/06/2023 PLT 217 03/06/2023 Lab Results Component Value Date INR 1.1 02/16/2023 INR 1.1 02/05/2023 PROTIME 11.5 02/16/2023 PROTIME 11.1 02/05/2023 No results found for: VLDL PHYSICAL EXAM: Vitals: 03/06/23 0426 BP: 122/78 Pulse: 90 Resp: 14 Temp: 36.4 C (97.6 F) SpO2: 96% Physical Exam Constitutional: General: He is not in acute distress. HENT: Head: Normocephalic and atraumatic. Mouth/Throat: Mouth: Mucous membranes are moist. Pharynx: Oropharynx is clear. Eyes: General: No scleral icterus. Extraocular Movements: Extraocular movements intact. Pupils: Pupils are equal, round, and reactive to light. Cardiovascular: Rate and Rhythm: Normal rate and regular rhythm. Pulses: Carotid pulses are 2+ on the right side and 2+ on the left side. Radial pulses are 2+ on the right side and 2+ on the left side. Dorsalis pedis pulses are 2+ on the right side and 2+ on the left side. Posterior tibial pulses are 2+ on the right side and 2+ on the left side. Pulmonary: Effort: Pulmonary effort is normal. No respiratory distress. Chest: Chest wall: No tenderness. Abdominal: General: There is no distension. Palpations: Abdomen is soft. Tenderness: There is no abdominal tenderness. There is no guarding or rebound. Comments: PEG LUQ Musculoskeletal: General: No swelling or tenderness. Normal range of motion. Skin: General: Skin is warm. Findings: No bruising. Neurological: Mental Status: He is alert. Motor: Weakness (RUE and RLE flacid; 5/5 strenght LUE, 4/5 strength LLE) present. Comments: Non-verbal, minimally participatory Psychiatric: Mood and Affect: Mood normal. Behavior: Behavior normal. LABS: Lab Results Component Value Date WBC 7.4 03/06/2023 HGB 15.0 03/06/2023 HCT 44.2 03/06/2023 PLT 217 03/06/2023 PROTIME 11.5 02/16/2023 INR 1.1 02/16/2023 K 3.4 (L) 03/06/2023 BUN 61 (H) 03/06/2023 CREATININE 1.34 (H) 03/06/2023 VASCULAR TESTING: IMPRESSION: There are a couple of vague areas of decreased density within the periphery of the spleen medially and posteriorly. The appearance is nonspecific. These could represent splenic infarcts, age uncertain. There are not evident on the CT from 02/16/2023, however may be obscured due to the lack of contrast on that examination. Bilateral adrenal nodules likely reflecting adenomas, stable in appearance. Right renal cyst. . Associated attestation - Luke Singh MD - 03/06/2023 9:39 AM EDT Splenic infarcts may have occurred at the same time as his stroke. Appears to be embolic He has a left atrial appendage clot --- no anticoagulation per neurology to march 17 Needs his immunizations for splenic loss Nothing further to add at this time I saw and evaluated the patient. I agree with the findings and plan of care as documented in the resident s note. Pharmacy Managed Vancomycin Dosing Service Consult Note Consult Date: 03/06/23 Consulted By: Dr. Faith Room: Patient Name: Catina Land Allergies: Patient has no known allergies. Age: 67 y.o. Sex: male Ht: TBW: BMI: There is no height or weight on file to calculate BMI. Calculated CrCl: 44.1 ml/min Lab Results Component Value Date CREATININE 1.36 (H) 03/05/2023 CREATININE 0.87 03/04/2023 CREATININE 1.09 02/25/2023 BUN 62 (H) 03/05/2023 BUN 44 (H) 03/04/2023 BUN 62 (H) 02/25/2023 WBC 10.1 03/05/2023 WBC 10.9 (H) 03/04/2023 WBC 7.7 02/25/2023 Trough: No results found for: VANCOTROUGH Random: No results found for: VANCORANDOM Infectious Diagnosis: Sepsis of Unknown Etiology (goal AUC = 400-600 mg/L*h) Antimicrobials: Patient recently received an antibiotic (last 12 hours) Date/Time Action Medication Dose Rate 03/05/232138 New Bag vancomycin (Vancocin) 1,500 mg in dextrose 5 % 250 mL IVPB 1,500 mg 125 mL/hr 03/05/232045 New Bag piperacillin-tazobactam (Zosyn) IVPB 4.5 g 4.5 g 200 mL/hr Assessment/Plan: Start Vancomycin 1.5 grams once, followed by 1 gram every 24 hours based on patient age, weight, renal function, and infectious diagnosis (predicted AUC of 432 mg/L*h). Will assess random level at 06:00 on 03/07/23 and adjust as appropriate. Will follow renal function closely. Thank you for this consult. Please page/call with questions. Date: 03/06/23 Time: 3:07 AM Name: Kamran Mendenhall RPh Phone: [phone] documented in this encounter [facility] 03-07-2023 Nurse Note TF running at 50cc/hr, goal rate now. Pt tolerating. [facility] 03-07-2023 Note Formatting of this n ote might be different from the original. Referral placed to [facility] via [facility] per TCC request. Await review and response regarding ability to accept. TCC notified. [facility] 03-07-2023 Note Formatting of this n ote might be different from the original. Referral placed to [facility] via [facility] per TCC request. Await review and response regarding ability to accept. TCC notified. [facility] 03-07-2023 Note Formatting of this n ote might be different from the original. Care Managment Initial Assessment Date: 03/07/2023 Patient Name: Catina Land : 1955 Patient Information Source of Information: Patient Ob/Gyn Doctor Name/Contact Information: sister Leighann Cognition/Language: Impaired Permission given to speak with patient field marketing representative/caregiver as indicated: Confirmation of Payer with patient/family: Yes Payer Name: lilian : No Confirmation of Primary Care Physician: Confirmed PCP Name: [facility] Seen in last 2 years?: Yes Primary Caregiver: (SNF managing) If assistance needed, confirmed caregiver ready, willing and able to care for patient at discharge: Confirmed with: Living Arrangements Current Residence: Number of Floors Number of Entry Steps: Bed/Bath Levels: Facility: Nursing Facility Skilled Facility Name: [facility] Plan to Return: No Lives with: Alone Support Systems: Family members Activities of Daily Living Ambulation: Assistance Bathing/Dressing: Assistance Elimination/Continence/Toileting: Assistance Feeding: Assistance Who Assists with Activities of Daily Living: SNF staff Instrumental Activities of Daily Living Prescription Coverage: Yes Pharmacy Used: uses pharmacy at [facility] Medication Management: (SNF manages) Transportation/Shopping: Assistance Provider Transportation Mode: Wheelchair van Needs Assistance with Transportation at Discharge: Yes Meal Preparation: Assistance Provider Laundry/Cleaning: Assistance Provider Finances/Bill Paying: Assistance Provider Communication: Assistance Types of Care Services/Equipment Utilized Care Services: Dialysis Type: Durable Medical Equipment: Wheelchair (standard or power) Patient's Goal/Discharge Plan Patient expects to be discharged to: [facility] Discharge Planning Actions: Continue to follow, Snf Facility referral indicated [place] choice: [place] of [place] discussed, Choice list provided Patient's Choice Rights and [employer] and Collaborative Relationships Disclosed as Indicated for Post-Acute Care: Yes Interdisciplinary Team Engagement: PT/OT Social Work Referral for: Additional Information: Pt adm for tx/evaluation of sepsis. Receiving IV zosyn and vanc. GI evaluated and signed off-outpt EGD. Vascular evaluated- no surgical plans/interventions at this time. PT/OT to eval. NPO with TF via PEG. Met with pt and sister leighann- introduced self and role. Pt aphasic from prior CVA. Discussed current tx plan and discharge plan- family not certain about return to [facility] d/t care concerns. Provided [facility] list for review. Asking for referral to [facility]- admin assist to place. Will continue to follow. Betsey King RN [facility] 03-07-2023 Note Formatting of this n ote might be different from the original. Care Managment Initial Assessment Date: 03/07/2023 Patient Name: Catina Land : 1955 Patient Information Source of Information: Patient Ob/Gyn Doctor Name/Contact Information: sister Leighann Cognition/Language: Impaired Permission given to speak with patient field marketing representative/caregiver as indicated: Confirmation of Payer with patient/family: Yes Payer Name: lilian [place]: No Confirmation of Primary Care Physician: Confirmed PCP Name: Nisha Seen in last 2 years?: Yes Primary Caregiver: (SNF managing) If assistance needed, confirmed caregiver ready, willing and able to care for patient at discharge: Confirmed with: Living Arrangements Current Residence: Number of Floors Number of Entry Steps: Bed/Bath Levels: Facility: Nursing Facility Skilled Facility Name: [facility] Plan to Return: No Lives with: Alone Support Systems: Family members Activities of Daily Living Ambulation: Assistance Bathing/Dressing: Assistance Elimination/Continence/Toileting: Assistance Feeding: Assistance Who Assists with Activities of Daily Living: SNF staff Instrumental Activities of Daily Living Prescription Coverage: Yes Pharmacy Used: uses pharmacy at SNF Medication Management: (SNF manages) Transportation/Shopping: Assistance Provider Transportation Mode: Wheelchair van Needs Assistance with Transportation at Discharge: Yes Meal Preparation: Assistance Provider Laundry/Cleaning: Assistance Provider Finances/Bill Paying: Assistance Provider Communication: Assistance Types of Care Services/Equipment Utilized Care Services: Dialysis Type: Durable Medical Equipment: Wheelchair (standard or power) Patient's Goal/Discharge Plan Patient expects to be discharged to: SNF Discharge Planning Actions: Continue to follow, Snf Facility referral indicated [place] of [place]: [place] of [place] discussed, Choice list provided Patient's Choice Rights and [employer] and Collaborative Relationships Disclosed as Indicated for Post-Acute Care: Yes Interdisciplinary Team Engagement: PT/OT Social Work Referral for: Additional Information: Pt adm for tx/evaluation of sepsis. Receiving IV zosyn and vanc. GI evaluated and signed off-outpt EGD. Vascular evaluated- no surgical plans/interventions at this time. PT/OT to eval. NPO with TF via PEG. Met with pt and sister leighann- introduced self and role. Pt aphasic from prior CVA. Discussed current tx plan and discharge plan- family not certain about return to [facility] d/t care concerns. Provided [facility] list for review. [facility] to place. Will continue to follow. Betsey King RN [facility] 03-07-2023 Note Formatting of this n ote might be different from the original. Met with pt in room to discuss Primary/ Special Election Voting. Pt has no capacity. T [facility] 03-07-2023 Note Formatting of this n ote might be different from the original. Met with pt in room to discuss Primary/ Special Election Voting. Pt has no capacity. T [facility] 03-07-2023 Nurse Note Patient tube feed increased to a rate of 40ml/hr at this time. Patient tolerating. Goal rate is 50ml/hr. T [facility] 03-07-2023 Note Formatting of this n ote might be different from the original. Return [facility]. Await review and response regarding ability to accept. TCC notified. T [facility] 03-07-2023 Note Formatting of this n ote might be different from the original. Return Referral placed to [facility] via [facility] per TCC request. Await review and response regarding ability to accept. TCC notified. [facility] 03-07-2023 Consult note Formatting of th is note is different from the original. Pharmacy Managed Vancomycin Dosing Service Progress Note Date: 03/07/23 Room:[facility]/[address] Patient Name: Catina Land Allergies: Patient has no known allergies. Age: 67 y.o. Sex: male Ht: @FLOWAMB(11)@ TBW: @FLOWAMB(14)@ BMI: There is no height or weight on file to calculate BMI. DW: 69 kg Calculated CrCl: 75 ml/min Lab Results Component Value Date CREATININE 0.92 03/07/2023 CREATININE 1.34 (H) 03/06/2023 CREATININE 1.36 (H) 03/05/2023 BUN 50 (H) 03/07/2023 BUN 61 (H) 03/06/2023 BUN 62 (H) 03/05/2023 WBC 6.6 03/07/2023 WBC 7.4 03/06/2023 WBC 10.1 03/05/2023 Trough: No results found for: VANCOTROUGH Random: Lab Results Component Value Date VANCORANDOM 16.8 03/07/2023 Infectious Diagnosis: sepsis (goal trough = 400-600mg/l*hr) Antimicrobials: Patient recently received an antibiotic (last 12 hours) Date/Time Action Medication Dose Rate 03/07/23 0249 New Bag piperacillin-tazobactam (Zosyn) IVPB 3,375 mg 3,375 mg 12.5 mL/hr 03/06/23 2328 New Bag vancomycin (Vancocin) 1000 mg in dextrose 5% 200 mL IVPB (premix) 1,000 mg 133.3 mL/hr Assessment/Plan: Renal fcn improved slightly, increased vancomycin dose to 1.5 gm q24 hrs and drawing vanco level tomorrow 03/08 Please page/call with questions. Date: 03/07/23 Time: 8:44 AM Name: Andrew Gallo RPh, Pager: Phone: [phone] [facility] 03-06-2023 Consult note Associated Order (s): Inpatient consult to Gastroenterology GASTROENTEROLOGY CONSULTATION NOTE Inpatient consult to Gastroenterology Consult performed by: Cyndi Cervantes APRN - [employer] CR[employer]ING SUPERVISOR Consult ordered by: Burke Faith MD Patient: Catina Land : 1955 PCP: Teodoro Cameron MD Reason for Consult: Esophagitis CHIEF COMPLAINT: fevers History Obtained From: patient, electronic chart HISTORY OF PRESENT ILLNESS: The patient is a 67 y.o. male with significant past medical history of recent stroke 02/05/23 resulting in hemiparesis and PEG tube placement, CAD, CABG x2, [place], and who presents with fevers concerning for sepsis. Blood cultures currently negative. CT of chest showing mild circumferential wall thickening of distal esophagus. Past Medical History: Past Medical History: Diagnosis Date CAD (coronary artery disease) History of coronary artery bypass graft x 2 04/2014 Hyperlipidemia [place], old 03/28/2014 STEMI-inferior Pneumonia Presence of stent in coronary artery 03/2014 Third degree AV block (CMS/HCC) (HCC) 03/28/2014 during inferior STEMI Past Surgical History: Past Surgical History: Procedure Laterality Date CORONARY ANGIOPLASTY 03/28/2014 DANDY to prox RCA x 2 CORONARY ARTERY BYPASS GRAFT 04/2014 SENIOR-LAD, SVG-PD/RCA Social History Socioeconomic History Marital status: Single Spouse name: Not on file Number of children: Not on file Years of education: Not on file Highest education level: Not on file Occupational History Not on file Tobacco Use Smoking status: Every Day Packs/day: 1.00 Types: Cigarettes Start date: 03/17/1975 Smokeless tobacco: Not on file Substance and Sexual Activity Alcohol use: Yes Drug use: No Sexual activity: Not on file Other Topics Concern Not on file Social History Narrative Not on file Social Determinants of Health Financial Resource Strain: Not on file Food Insecurity: Not on file Transportation Needs: Not on file Physical Activity: Not on file Stress: Not on file Social Connections: Not on file Intimate Partner Violence: Not on file Housing Stability: Not on file Family History Problem Relation Name Age of Onset Coronary artery disease Mother Cancer Mother Cancer Father Allergies: Patient has no known allergies. Home Medications: Prior to Admission medications Medication Sig Start Date End Date Taking? Authorizing Provider acetaminophen (Tylenol) 325 MG tablet Take 2 tablets (650 mg) by mouth every 6 hours as needed for mild pain (1-3) or fever (For temp greater than 100.4 F (38 C)) for up to 10 days. 02/20/23 03/02/23 Wilmer Sheldon, DO amLODIPine (Norvasc) 10 MG tablet Take 1 tablet (10 mg) by mouth daily. Do not start before February 21, 2023. 02/21/23 03/23/23 Wilmer Sheldon, DO aspirin 81 MG chewable tablet 1 tablet (81 mg) by Per G Tube route daily for 24 days. Do not start before February 21, 2023. 02/21/23 03/17/23 Wilmer Sheldon, DO atorvastatin (Lipitor) 40 MG tablet 1 tablet (40 mg) by Per G Tube route daily. 02/20/23 05/21/23 Wilmer Sheldon, DO carvedilol (Coreg) 25 MG tablet 1 tablet (25 mg) by Per G Tube route in the morning and 1 tablet (25 mg) in the evening. Take with meals. 02/20/23 03/22/23 Wilmer Sheldon DO ipratropium-albuterol (Duo-Neb) 0.5-2.5 mg/3 mL nebulizer solution Take 3 mL by nebulization in the morning and 3 mL at noon and 3 mL in the evening. 02/25/23 02/25/24 Sarah Beth Travis melatonin 5 MG tablet Take 1 tablet (5 mg) by mouth Nightly as needed (sleep). 02/20/23 Wilmer Sheldon DO Current Medications: Scheduled Meds:amLODIPine, 10 mg, Oral, Daily aspirin, 81 mg, Per G Tube, Daily atorvastatin, 40 mg, Per G Tube, Daily carvedilol, 25 mg, Per G Tube, BID WC enoxaparin, 40 mg, SubCUTAneous, Daily ipratropium-albuterol, 3 mL, Nebulization, TID pantoprazole, 40 mg, IntraVENous, BID And sodium chloride (PF), 10 mL, IntraVENous, BID piperacillin-tazobactam, 3,375 mg, IntraVENous, q8h vancomycin, 1,000 mg, IntraVENous, q24h Continuous Infusions:lactated Ringer's, 100 mL/hr PRN Meds:PRN medications: acetaminophen OR acetaminophen, melatonin, ondansetron ODT OR ondansetron, polyethylene glycol (PEG) 3350 REVIEW OF SYSTEMS: Ten-point review of symptoms was noted and reviewed in the chart. PHYSICAL EXAM: VS: BP 130/76 Pulse 80 Temp 36.8 C (98.2 F) (Temporal) Resp 16 SpO2 98% There is no height or weight on file to calculate BMI. GENERAL: Pleasant and NAD. HEENT: NCAT, PERRLA, EOMI, Scleral anicteric. Oropharhynx clear with no erythema or exudate. Neck supple, no cervical LAD or thyromegaly. CV: RRR, NL S1/S2, no murmurs. Distal pulses palpable and equal bilateral LUNGS: CTA bilateral Normal percussion and palpation. No W/R/R. Abdomen: + BS, soft, non-tender and non-distended. No hepatosplenomegaly. No mass felt. No rebound or guarding. No hernia. Extremities: No edema. No muscle atrophy. Skin: No skin lesion or breakdown. Lymph: No cervical or supraclavicular LAD. Musculoskeletal: Strength 5/5 in all exts. No joint tenderness or effusions in LEs. Neurologic: A&O x 3, CN II-XII grossly intact motor and sensory. Psych: Normal affect and speech. DATA: CBC: Recent Labs 03/04/23 1747 03/05/23201103/06/23 0511 WBC 10.9* 10.1 7.4 HGB 14.8 16.6 15.0 HCT 44.4 48.7 44.2 PLT 251 303 217 CMP: Recent Labs 03/05/23201103/06/23 0511 NA 140 143 K 5.5* 3.4* CL 107 108* CO2 22 25 BUN 62* 61* CREATININE 1.36* 1.34* GLUCOSE 127* 130* CALCIUM 9.1 8.8 HEPATIC: Recent Labs 03/05/23201103/06/23 0511 AST 67* 34 ALT 54* 43 BILITOT 1.5* 1.0 ALKPHOS 74 79 LIPASE/AMYLASE: Recent Labs 03/05/232011 LIPASE 35 LACTATE: No lab exists for component: LACTA INR: No results for input(s): INR in the last 72 hours. Radiological Review: 4/28/23 CT of Chest Pulmonary arteries: There is technically adequate opacification of the pulmonary arteries. No pulmonary embolus is identified. Aorta/Great Vessels: No aneurysmal dilatation or dissection. Lungs: Mild pulmonary emphysema with bibasilar atelectasis. No suspicious nodules or acute consolidative process. Pleura: No pleural effusion Heart: The heart is normal in size with no pericardial effusion. Mediastinum/Lary: A few borderline and mildly enlarged mediastinal and bilateral hilar lymph nodes measure up to 1.2 cm in short axis. Thyroid and Esophagus: Mild circumferential wall thickening of the distal esophagus. The thyroid is normal. Visualized Upper Abdomen: Bilateral adrenal thickening and mild nodularity, unchanged from 2017. Fluid attenuation right renal cyst. Gastrostomy tube in adequate position. No other significant abnormality. Chest wall/Lower neck: No masses or lymphadenopathy Bones: No suspicious osseous lesions. Mild degenerative changes of the thoracic spine. Median sternotomy wires. IMPRESSION: 1. No pulmonary embolism or acute consolidative process in the lungs. 2. A few borderline and mildly enlarged mediastinal and bilateral hilar lymph nodes are nonspecific in etiology, similar in appearance to 2017. 3. Mild circumferential wall thickening of the distal esophagus, likely related to reflux esophagitis. IMPRESSION/PLAN: Sepsis Mild thickening of distal esophagus on CT Recent Ischemic stroke 02/05 -CT reviewed with attending and overall mild thickening of distal esophagus not contributing to overall clinical presentation. No urgent EGD required at this time. -Agree with sepsis work up -Continue supportive care -Continue PPI daily -At this time GI will sign off. I have personally seen, interviewed, and examined the patient. I have reviewed the case with the Medical Student/Resident/PA and reviewed their consult/progress note. I agree with all of the above. 67 year old female male with ischemic stroke admitted with sepsis. Patient had thickening of esophagus seen on CT scan. Patient has no issues at this time. GI to sign off. No further work up necessary. Himanshu Wade MD, FACG, AGAF Electronically signed by HIMANSHU WADE MD 03/06/2023 2:01 PM [employer] Phone: 03-06-2023 Consult note Associated Order (s): IP CONSULT TO VASCULAR SURGERY Vascular Surgery Consultation Note Reason for Consult: splenic infarcts HISTORY OF PRESENT ILLNESS: The patient is a 67 y.o. male who is admitted to the hospital for treatment of altered mental status, possible sepsis. The patient has suffered a recent stroke within the month complicated by hemorrhagic transformation and has profound deficits since that time including aphasia, dysarthria, and right hemiplegia. At present he is non-verbal and can provide limited information with yes/no questioning. Per chart review the patient was recommended to begin anticoagulation on 03/17/23 per neurology for treatment of a known left atrial appendage thrombus which was identified on CESARIO on 02/09. He remains on ASA81 until then. The patient was recently admitted from SNF with concern for possible sepsis. Workup upon admission included a CT A/P which demonstrates a couple of vague areas of decreased density within the periphery of the spleen, medially and posteriorly, which could represent splenic infarcts, age uncertain. Vascular surgery is consulted for evaluation and treatment. IMPRESSION: Catina Land is a 67 y.o. male with imaging findings concerning for scattered splenic infarction from which the patient is relatively asymptomatic. Patient has a known left atrial appendage thrombus which is likely the etiology of his splenic infarcts which are minimally symptomatic. RECOMMENDATIONS: -No acute surgical intervention -Recommend therapeutic anticoagulation for the splenic infarct(s) -Recommend neurology consult to clarify when he is at acceptable risk to initiate anticoagulation given recent stroke with hemorrhagic transformation -Recommend functional splenectomy vaccines: -haemophilus B-polysac conjugate vaccine (HIBERIX) either or (ActHIB) injection 0.5 mL -meningococcal oligosaccharide (MENVEO) injection -pneumococcal 20-valent conjugate (PREVNAR 20) injection -meningococcal group B (BEXSERO) injection -Vascular surgery will sign off. Thank you for this consult. We appreciate the opportunity to care for this patient. Please reach out with questions and concerns. This plan was discussed with Dr. Singh Past Medical History: Diagnosis Date CAD (coronary artery disease) History of coronary artery bypass graft x 2 04/2014 Hyperlipidemia [place], old 03/28/2014 STEMI-inferior Pneumonia Presence of stent in coronary artery 03/2014 Third degree AV block (CMS/HCC) (HCC) 03/28/2014 during inferior STEMI Past Surgical History: Procedure Laterality Date CORONARY ANGIOPLASTY 03/28/2014 DANDY to prox RCA x 2 CORONARY ARTERY BYPASS GRAFT 04/2014 SENIOR-LAD, SVG-PD/RCA Current Medications: dextrose 5 % and sodium chloride 0.9 %, 125 mL/hr, Last Rate: 125 mL/hr (03/06/23 0458) PRN medications: acetaminophen OR acetaminophen, melatonin, ondansetron ODT OR ondansetron, polyethylene glycol (PEG) 3350 amLODIPine, 10 mg, Oral, Daily aspirin, 81 mg, Per G Tube, Daily atorvastatin, 40 mg, Per G Tube, Daily carvedilol, 25 mg, Per G Tube, BID WC enoxaparin, 40 mg, SubCUTAneous, Daily ipratropium-albuterol, 3 mL, Nebulization, TID pantoprazole, 40 mg, IntraVENous, qAM AC And sodium chloride (PF), 10 mL, IntraVENous, qAM AC piperacillin-tazobactam, 3,375 mg, IntraVENous, q8h vancomycin, 1,000 mg, IntraVENous, q24h Allergies: Patient has no known allergies. Social History Socioeconomic History Marital status: Single Spouse name: Not on file Number of children: Not on file Years of education: Not on file Highest education level: Not on file Occupational History Not on file Tobacco Use Smoking status: Every Day Packs/day: 1.00 Types: Cigarettes Start date: 03/17/1975 Smokeless tobacco: Not on file Substance and Sexual Activity Alcohol use: Yes Drug use: No Sexual activity: Not on file Other Topics Concern Not on file Social History Narrative Not on file Social Determinants of Health Financial Resource Strain: Not on file Food Insecurity: Not on file Transportation Needs: Not on file Physical Activity: Not on file Stress: Not on file Social Connections: Not on file Intimate Partner Violence: Not on file Housing Stability: Not on file Family History Problem Relation Name Age of Onset Coronary artery disease Mother Cancer Mother Cancer Father REVIEW OF SYSTEMS: The chart was reviewed. Review of Systems Unable to perform ROS: Patient nonverbal LABS: Lab Results Component Value Date CREATININE 1.34 (H) 03/06/2023 Lab Results Component Value Date WBC 7.4 03/06/2023 HGB 15.0 03/06/2023 HCT 44.2 03/06/2023 MCV 91.4 03/06/2023 PLT 217 03/06/2023 Lab Results Component Value Date INR 1.1 02/16/2023 INR 1.1 02/05/2023 PROTIME 11.5 02/16/2023 PROTIME 11.1 02/05/2023 No results found for: VLDL PHYSICAL EXAM: Vitals: 03/06/23 0426 BP: 122/78 Pulse: 90 Resp: 14 Temp: 36.4 C (97.6 F) SpO2: 96% Physical Exam Constitutional: General: He is not in acute distress. HENT: Head: Normocephalic and atraumatic. Mouth/Throat: Mouth: Mucous membranes are moist. Pharynx: Oropharynx is clear. Eyes: General: No scleral icterus. Extraocular Movements: Extraocular movements intact. Pupils: Pupils are equal, round, and reactive to light. Cardiovascular: Rate and Rhythm: Normal rate and regular rhythm. Pulses: Carotid pulses are 2+ on the right side and 2+ on the left side. Radial pulses are 2+ on the right side and 2+ on the left side. Dorsalis pedis pulses are 2+ on the right side and 2+ on the left side. Posterior tibial pulses are 2+ on the right side and 2+ on the left side. Pulmonary: Effort: Pulmonary effort is normal. No respiratory distress. Chest: Chest wall: No tenderness. Abdominal: General: There is no distension. Palpations: Abdomen is soft. Tenderness: There is no abdominal tenderness. There is no guarding or rebound. Comments: PEG LUQ Musculoskeletal: General: No swelling or tenderness. Normal range of motion. Skin: General: Skin is warm. Findings: No bruising. Neurological: Mental Status: He is alert. Motor: Weakness (RUE and RLE flacid; 5/5 strenght LUE, 4/5 strength LLE) present. Comments: Non-verbal, minimally participatory Psychiatric: Mood and Affect: Mood normal. Behavior: Behavior normal. LABS: Lab Results Component Value Date WBC 7.4 03/06/2023 HGB 15.0 03/06/2023 HCT 44.2 03/06/2023 PLT 217 03/06/2023 PROTIME 11.5 02/16/2023 INR 1.1 02/16/2023 K 3.4 (L) 03/06/2023 BUN 61 (H) 03/06/2023 CREATININE 1.34 (H) 03/06/2023 VASCULAR TESTING: IMPRESSION: There are a couple of vague areas of decreased density within the periphery of the spleen medially and posteriorly. The appearance is nonspecific. These could represent splenic infarcts, age uncertain. There are not evident on the CT from 02/16/2023, however may be obscured due to the lack of contrast on that examination. Bilateral adrenal nodules likely reflecting adenomas, stable in appearance. Right renal cyst. . Associated attestation - Luke Singh MD - 03/06/2023 9:39 AM EDT Splenic infarcts may have occurred at the same time as his stroke. Appears to be embolic He has a left atrial appendage clot --- no anticoagulation per neurology to march 17 Needs his immunizations for splenic loss Nothing further to add at this time I saw and evaluated the patient. I agree with the findings and plan of care as documented in the resident s note. [facility] [employer] Work Phone: 03-06-2023 Plan of care note Images from the original note were not included. Hospitalist Summary Note (admitted after midnight) 03/06/2023 7:19 AM [id number]: Please page [facility] night Hospitalist for any issues. Subjective: Admit Date: 03/05/2023 PCP: Teodoro Cameron MD Room#: N4-464/[id number] B Interval note for patient admission after midnight. Patient admitted 03/05/2023 for simple sepsis. 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 Of note, known to have L-atrial appendage thrombus (see CESARIO 02/09/23), per neuro recs while admitted at that time patient, is supposed to stop ASA and start OAC next month (on 03/17). Initially presented from [facility] to ED on 03/04 with diffuse chest pain, imaging c/w mild distal thoracic esophageal thickening c/f esophagitis with non-cardiac CP, treated with famotidine. Was discharged back to facility. Returned to ED on 03/05 for 1-day of N/V with fevers. On arrival, tachycardic (120s) and febrile (102.8). On repeat evaluation, now with MERCEDES, and abdominal imaging with age-indeterminate possible splenic infarcts. Initially reported to have hyperK with transaminitis, however specimen had been hemolyzed and on repeat labs these findings were absent. Simple sepsis Distal esophagitis MERCEDES Splenic infarcts, age-indeterminate Hypokalemia, mild L atrial appendage thrombus, not currently on AC (per neuro, recommend dc ASA and start OAC on 03/17) All labs, diagnostic studies, imaging, and progress notes reviewed. Of note: no leukocytosis, mild MERCEDES, and mild lab abnormalities all consistent with the lab's report of moderately hemolyzed sample (elevated K, AST, ALT, and Tbili are all expected in hemolysis)--on repeat check these were all (as expected) absent. Current plan, with any updates: - pip/tazo + vanc - IVF (currently completing 2nd-liter of 30 mL/kg), switch to LR MIVF after current liter completes (is developing hyperchloremia) - NPO - RUQ US - UA - replete K - PPI bid - GI consult - vascular surgery consult - infarcts likely due to known LA thrombus - AC when able per neuro recs - vaccinate for acquired asplenia (can be done as outpt) Daren Hart MD Division of Hospitalist Medicine Inpatient Medical Services/[facility] [employer] Work Phone: 03-06-2023 Emergency department Note Tile Classifier at bedside to transport pt to 4N Michelle Lee RN 03/06/23 1452 [facility] 03-06-2023 Emergency department Note Tile Classifier at bedside to transport pt to 4N Michelle Lee RN 03/06/23 6831 RN to bedside, pt had bowel movement, RN cleaned pt, and did complete linen change, pt on vs and tele monitor, 2 visitors at bedside, RN attempted straight cath, no urine out, resistance met, RN stopped and removed cath when resistance was met, RN called 4N RN who will be taking over pt and informed her or this information, primary RN Michelle also notified of this information Abena Garber RN 03/06/23214 Report to Michelle JONES ending lunch coverage of this pt Abena Garber RN 03/06/23213 RN to bedside to introduce herself to pt and family, pt on vs and tele monitor, side rails up x2, call light within reach, respirations even and unlabored at this time Abena Garber RN 03/06/2343 Bloodwork and blood cultures completed at this time, awaiting provider for eval, family remains at bedside and call calderon within reach Rosa Landers RN 03/05/23 1811 Family at bedside Rosa Landers RN 03/05/23 8924 EMERGENCY DEPARTMENT ENCOUNTER Pt Name: Catina Land Birthdate 1955 Date of evaluation: 03/05/2023 ED Provider: Miguel Kaplan MD CHIEF COMPLAINT Chief Complaint Patient presents with Vomiting Patient arrives with EMS from [facility], per ems patient was seen last night here for chest pain and discharged, staff complains of patient having episodes of vomiting all day and are concerned for aspiration pneumonia. Patient has hx of stroke 2 weeks ago and is non verbal and is at baseline mentality per ems. Fever Per family at bedside the patient had a peg tube placed for tube feeds about 2 weeks ago, patient "thumbs up" when this RN asked him if the tube feeds have been hurting or burning during use, patient has 102.8 fever and is tachy in thee 130s HISTORY OF PRESENT ILLNESS (Location/Symptom, Timing/Onset, Context/Setting, Quality, Duration, Modifying Factors, Severity) Note limiting factors. I wore appropriate PPE for the entirety of this encounter. HPI Catina Land is a 67 y.o. male who presents to the emergency department with chief complaint of nausea vomiting, fever. History provided by patient's . Patient lives at a rehab facility because he had a stroke and has right-sided hemiparesis. He has been at the facility for around 1 week. History provided by patient's she states that he had episodes of nonbloody, nonbilious emesis today. States her fever is noticed at the SNF. Facility was worried about the possibility of aspiration pneumonia. Nursing Notes were reviewed. Limitations to history: Altered mental status/confusion Outside historians: Significant other REVIEW OF SYSTEMS Review of Systems Unable to perform ROS: Patient nonverbal Pertinent positives and negatives as per HPI. PAST MEDICAL HISTORY Past Medical History: Diagnosis Date CAD (coronary artery disease) History of coronary artery bypass graft x 2 04/2014 Hyperlipidemia [place], old 03/28/2014 STEMI-inferior Pneumonia Presence of stent in coronary artery 03/2014 Third degree AV block (CMS/HCC) (HCC) 03/28/2014 during inferior STEMI SURGICAL HISTORY Past Surgical History: Procedure Laterality Date CORONARY ANGIOPLASTY 03/28/2014 DANDY to prox RCA x 2 CORONARY ARTERY BYPASS GRAFT 04/2014 SENIOR-LAD, SVG-PD/RCA CURRENT MEDICATIONS Current Discharge Medication List CONTINUE these medications which have NOT CHANGED Details amLODIPine (Norvasc) 10 MG tablet Take 1 tablet (10 mg) by mouth daily. Do not start before February 21, 2023. Qty: 30 tablet, Refills: 0 aspirin 81 MG chewable tablet 1 tablet (81 mg) by Per G Tube route daily for 24 days. Do not start before February 21, 2023. Qty: 24 tablet, Refills: 0 atorvastatin (Lipitor) 40 MG tablet 1 tablet (40 mg) by Per G Tube route daily. Qty: 30 tablet, Refills: 2 carvedilol (Coreg) 25 MG tablet 1 tablet (25 mg) by Per G Tube route in the morning and 1 tablet (25 mg) in the evening. Take with meals. Qty: 60 tablet, Refills: 0 ipratropium-albuterol (Duo-Neb) 0.5-2.5 mg/3 mL nebulizer solution Take 3 mL by nebulization in the morning and 3 mL at noon and 3 mL in the evening. Qty: 180 mL, Refills: 11 melatonin 5 MG tablet Take 1 tablet (5 mg) by mouth Nightly as needed (sleep). Refills: 0 ALLERGIES Patient has no known allergies. FAMILY HISTORY Family History Problem Relation Name Age of Onset Coronary artery disease Mother Cancer Mother Cancer Father SOCIAL HISTORY Social History Socioeconomic History Marital status: Single Tobacco Use Smoking status: Every Day Packs/day: 1.00 Types: Cigarettes Start date: 03/17/1975 Substance and Sexual Activity Alcohol use: Yes Drug use: No SCREENINGS PHYSICAL EXAM ED Triage Vitals [03/05/23 1738] Temp Heart Rate Resp BP (!) 39.3 C (102.8 F) (!) 128 18 137/80 SpO2 Temp Source Heart Rate Source Patient Position 92 % Oral Monitor -- BP Location FiO2 (%) -- -- Physical Exam Constitutional: Appearance: He is ill-appearing. He is not diaphoretic. HENT: Head: Normocephalic and atraumatic. Right Ear: External ear normal. Left Ear: External ear normal. Nose: Nose normal. Mouth/Throat: Mouth: Mucous membranes are dry. Pharynx: Oropharynx is clear. Eyes: Pupils: Pupils are equal, round, and reactive to light. Cardiovascular: Rate and Rhythm: Tachycardia present. Pulses: Normal pulses. Heart sounds: No murmur heard. No friction rub. No gallop. Pulmonary: Breath sounds: Rhonchi present. Abdominal: General: Abdomen is flat. There is no distension. Palpations: Abdomen is soft. Tenderness: There is no abdominal tenderness. Comments: PEG tube in place Musculoskeletal: General: No deformity. Cervical back: Neck supple. Skin: General: Skin is warm. Findings: No lesion or rash. Neurological: Mental Status: He is alert. Mental status is at baseline. Psychiatric: Behavior: Behavior normal. DIAGNOSTIC RESULTS Procedures/EKG: EKG was reviewed by myself. Physician EKG interpretation can be found in [facility] RADIOLOGY (Per Emergency Physician): Interpretation per the Radiologist below, if available at the time of this note: US abdomen limited Final Result Normal sonographic appearance of the right upper quadrant where visualized. Report Dictated on Electronically Signed By: Ramón Tavares Electronically Signed Date/Time: 03/06/2023 8:[address] chest abdomen pelvis with contrast Final Result No focal consolidation is seen within the lungs. There is mild atelectasis within the lung bases. A few borderline-enlarged mediastinal lymph nodes are similar to the prior examination, probably reactive. Mild circumferential thickening of the mid to distal thoracic esophagus. This may reflect esophagitis. Correlation with endoscopy or upper GI series may be helpful. ABDOMEN AND PELVIS: The liver, gallbladder, pancreas, and left kidney appear within normal limits. There is a cyst arising from the upper pole of the right kidney measuring 2.5 cm. There are bilateral adrenal nodules, likely reflecting adenomatous as characterized on the noncontrast CT from 02/16/2023. There are a couple of vague areas of decreased density within the medial and posterior periphery of the spleen. These are not definitely seen on the noncontrast CT. The abdominal aorta is normal in caliber. Scattered vascular calcification is present. There is no retroperitoneal, pelvic, or inguinal lymphadenopathy. The urinary bladder appears grossly normal. The prostate does not appear enlarged. Large and small bowel loops appear grossly normal without evidence of wall thickening or dilatation. A PEG tube terminates within the stomach. The appendix appears normal. There is no free fluid or free air within the abdomen or pelvis. No lytic or blastic lesions are seen on the bone windows. IMPRESSION: There are a couple of vague areas of decreased density within the periphery of the spleen medially and posteriorly. The appearance is nonspecific. These could represent splenic infarcts, age uncertain. There are not evident on the CT from 02/16/2023, however may be obscured due to the lack of contrast on that examination. Bilateral adrenal nodules likely reflecting adenomas, stable in appearance. Right renal cyst. Report Dictated on Electronically Signed By: Tye Roper Electronically Signed Date/Time: 03/05/2023 8:49 PM EDT ED BEDSIDE ULTRASOUND: Performed by ED Physician - none LABS: Labs Reviewed CBC WITH AUTO DIFFERENTIAL - Abnormal Result Value Auto WBC 10.1 RBC 5.46 Hemoglobin 16.6 Hematocrit 48.7 MCV 89.1 MCH 30.4 MCHC 34.1 RDW 15.0 (*) Platelets 303 MPV 9.9 nRBC 0.1 Neutrophils Relative 85.5 (*) Lymphocytes Relative 10.2 (*) Monocytes Relative 3.5 Eosinophils Relative 0.3 (*) Basophils Relative 0.5 Neutrophils Absolute 8.6 (*) Lymphocytes Absolute 1.0 Monocytes Absolute 0.4 Eosinophils Absolute 0.0 Basophils Absolute 0.1 COMPREHENSIVE METABOLIC PANEL - Abnormal SODIUM 140 POTASSIUM 5.5 (*) CHLORIDE 107 CARBON DIOXIDE 22 ANION GAP 10 UREA NITROGEN 62 (*) CREATININE 1.36 (*) GLUCOSE 127 (*) CALCIUM 9.1 AST (SGOT) 67 (*) ALT 54 (*) ALKALINE PHOSPHATASE 74 ALBUMIN 4.0 BILIRUBIN, TOTAL 1.5 (*) TOTAL PROTEIN 7.7 eGFR 57.0 (*) Narrative: Moderately Hemolyzed. Interpret K+, GLUC, ALKP, AST, TP, ALB, TBIL with caution. CBC WITH AUTO DIFFERENTIAL - Abnormal Auto WBC 7.4 RBC 4.84 Hemoglobin 15.0 Hematocrit 44.2 MCV 91.4 MCH 30.9 MCHC 33.9 RDW 14.9 (*) Platelets 217 MPV 10.1 nRBC 0.1 Neutrophils Relative 80.2 (*) Lymphocytes Relative 12.1 (*) Monocytes Relative 6.8 Eosinophils Relative 0.2 (*) Basophils Relative 0.7 Neutrophils Absolute 5.9 Lymphocytes Absolute 0.9 (*) Monocytes Absolute 0.5 Eosinophils Absolute 0.0 Basophils Absolute 0.0 COMPREHENSIVE METABOLIC PANEL - Abnormal SODIUM 143 POTASSIUM 3.4 (*) CHLORIDE 108 (*) CARBON DIOXIDE 25 ANION GAP 9 UREA NITROGEN 61 (*) CREATININE 1.34 (*) GLUCOSE 130 (*) CALCIUM 8.8 AST (SGOT) 34 ALT 43 ALKALINE PHOSPHATASE 79 ALBUMIN 3.2 (*) BILIRUBIN, TOTAL 1.0 TOTAL PROTEIN 6.3 eGFR 58.1 (*) BASIC METABOLIC PANEL - Abnormal SODIUM 144 POTASSIUM 3.9 CHLORIDE 114 (*) CARBON DIOXIDE 27 UREA NITROGEN 50 (*) CREATININE 0.92 GLUCOSE 90 CALCIUM 8.5 ANION GAP 3 eGFR >90.0 Narrative: Slightly Hemolyzed. Interpret K+ with caution. CBC WITH AUTO DIFFERENTIAL - Abnormal Auto WBC 6.6 RBC 4.16 (*) Hemoglobin 12.8 (*) Hematocrit 37.9 (*) MCV 91.0 MCH 30.8 MCHC 33.9 RDW 14.7 (*) Platelets 208 MPV 9.2 nRBC 0.1 Neutrophils Relative 65.2 Lymphocytes Relative 21.5 Monocytes Relative 9.4 Eosinophils Relative 3.3 Basophils Relative 0.6 Neutrophils Absolute 4.3 Lymphocytes Absolute 1.4 Monocytes Absolute 0.6 Eosinophils Absolute 0.2 Basophils Absolute 0.0 BASIC METABOLIC PANEL - Abnormal SODIUM 145 POTASSIUM 3.2 (*) CHLORIDE 111 (*) CARBON DIOXIDE 32 (*) UREA NITROGEN 33 (*) CREATININE 0.83 GLUCOSE 116 (*) CALCIUM 7.8 (*) ANION GAP 2 (*) eGFR >90.0 CBC WITH AUTO DIFFERENTIAL - Abnormal Auto WBC 6.2 RBC 3.89 (*) Hemoglobin 11.7 (*) Hematocrit 35.7 (*) MCV 91.6 MCH 30.0 MCHC 32.7 RDW 14.4 Platelets 218 MPV 9.3 nRBC 0.0 Neutrophils Relative 60.7 Lymphocytes Relative 25.2 Monocytes Relative 9.1 Eosinophils Relative 4.7 Basophils Relative 0.3 Neutrophils Absolute 3.8 Lymphocytes Absolute 1.6 Monocytes Absolute 0.6 Eosinophils Absolute 0.3 Basophils Absolute 0.0 PROCALCITONIN TEST - Abnormal PROCALCITONIN 0.12 (*) Narrative: PCT <0.50 = Low risk of severe sepsis and/or septic shock. PCT >2.00 = High risk of severe sepsis and/or septic shock. BLOOD CULTURE - Normal Blood Culture No growth at 48 hours Narrative: Blood Collection Site: Left Forearm BLOOD CULTURE - Normal Blood Culture No growth at 48 hours Narrative: Blood Collection Site: Right Arm SARS-COV-2 AND RESPIRATORY PCR PANEL - Normal SARS-CoV-2 Not Detected Adenovirus Not Detected Coronavirus HKU1 Not Detected Coronavirus NL63 Not Detected Coronavirus 229E Not Detected Coronavirus OC43 Not Detected Human Metapneumovirus Not Detected Human Rhinovirus/Enterovirus Not Detected Influenza A Not Detected Influenza B Not Detected Parainfluenza 1 Not Detected Parainfluenza 2 Not Detected Parainfluenza 3 Not Detected Parainfluenza 4 Not Detected Respiratory Syncytial Virus Not Detected Bordetella pertussis Not Detected Bordetella parapertussis Not Detected Chlamydia pneumoniae Not Detected Mycoplasma pneumoniae Not Detected Narrative: Methodology: Multiplex PCR SARS-COV-2 ANTIGEN - Normal SARS-CoV-2 Antigen Negative LACTIC ACID, SEPSIS WITH REFLEX IF ELEVATED - Normal LACTIC ACID 1.7 LIPASE - Normal LIPASE 35 MAGNESIUM - Normal MAGNESIUM 2.0 MAGNESIUM - Normal MAGNESIUM 2.1 Narrative: Moderately Hemolyzed. Interpret MAGNESIUM with caution. VANCOMYCIN, RANDOM - Normal VANCOMYCIN 16.8 COMPREHENSIVE METABOLIC PANEL WITH MG REFLEX Narrative: The following orders were created for panel order Comprehensive Metabolic Panel w/ Mg Reflex. Procedure Abnormality Status --------- ------ Comprehensive metabolic p...[[id number]] Abnormal Final result Please view results for these tests on the individual orders. COMPLETE URINALYSIS WITH REFLEX TO CULTURE Narrative: The following orders were created for panel order Urinalysis Complete with reflex to Culture. Procedure Abnormality Status --------- ------ Complete Urinalysis[[id number]] Please view results for these tests on the individual orders. COMPLETE URINALYSIS BASIC METABOLIC PANEL CBC WITH AUTO DIFFERENTIAL All other labs were within normal range or not returned as of this dictation. EMERGENCY DEPARTMENT COURSE and DIFFERENTIAL DIAGNOSIS/MDM: Vitals: Vitals: 03/08/23 0812 03/08/23 1152 03/08/23 1234 03/08/23 1941 BP: 126/67 137/71 BP Location: Right arm Patient Position: Sitting Pulse: 76 76 Resp: 18 18 Temp: 37 C (98.6 F) 37.1 C (98.7 F) TempSrc: Temporal Temporal SpO2: 97% 96% 94% 95% Pt is a 67 yo male presenting from SNF with fevers and vomiting earlier today. Pt has a PEG due to prior stroke with hemiparesis. Nursing facility had concerns for aspiration PNA. On exam pt febrile and tachycardic. Diffuse rhonci noted. Differential includes PNA, gastroenteritis, intraabdominal pathology. Workup shows creatinine of 1.36 consistent with MERCEDES. Potassium of 5.5. Unremarkable CBC, lactic acid, lipase. Negative viral panel. CT chest abdomen pelvis shows findings concerning for splenic infarct. Did send a set of Blood cultures. Due to fever and diffuse rhonchi on exam and concern for aspiration did put the patient on broad-spectrum antibiotics including vancomycin and Zosyn. I discussed the case with internal medicine who agreed to admit the patient due to concerns for sepsis of unknown origin. Diagnoses as of 03/08/232037 Sepsis (HCC) The patient presented with chief complaint of fever, vomiting. The differential diagnosis associated with this patient's presentation includes aspiration pneumonia, UTI, gastroenteritis, other intra-abdominal pathology. Our workup consisted of ordering/reviewing: CBC, CMP, lipase, lactic acid, CT chest abdomen pelvis, viral panel. Patient is in agreement with this plan. Medications amLODIPine (Norvasc) tablet 10 mg (10 mg Oral Given 03/08/23924) aspirin chewable tablet 81 mg (81 mg Per G Tube Given 03/08/23924) atorvastatin (Lipitor) tablet 40 mg (40 mg Per G Tube Given 03/08/23924) carvedilol (Coreg) tablet 25 mg (25 mg Per G Tube Given 03/08/231715) ipratropium-albuterol (Duo-Neb) 0.5-2.5 mg/3 mL nebulizer solution 3 mL (3 mL Nebulization Given 03/08/231151) melatonin tablet 5 mg (5 mg Oral Incomplete 03/08/232036) acetaminophen (Tylenol) tablet 650 mg (650 mg Oral Incomplete 03/08/232035) Or acetaminophen (Tylenol) suppository 650 mg ( Rectal See Alternative 03/08/232035) ondansetron ODT (Zofran-ODT) disintegrating tablet 4 mg (has no administration in time range) Or ondansetron (Zofran) injection 4 mg (has no administration in time range) polyethylene glycol (PEG) 3350 (Miralax) packet 17 g (has no administration in time range) enoxaparin (Lovenox) syringe 40 mg (40 mg SubCUTAneous Given 03/08/23925) dextrose 5 % and sodium chloride 0.9 % infusion (125 mL/hr IntraVENous New Bag 03/06/23 5059) piperacillin-tazobactam (Zosyn) IVPB 3,375 mg (3,375 mg IntraVENous New Bag 03/08/231829) pantoprazole (ProtoNix) injection 40 mg (40 mg IntraVENous Incomplete 03/08/232035) And sodium chloride (PF) 0.9 % flush 10 mL (10 mL IntraVENous Incomplete 03/08/232035) lactated Ringer's infusion (75 mL/hr IntraVENous New Bag 03/06/23 155) oxyCODONE (Roxicodone) immediate release tablet 5 mg (5 mg Per G Tube Incomplete 03/08/232036) sodium chloride 0.9 % bolus 1,000 mL (0 mL IntraVENous Stopped 03/05/232120) piperacillin-tazobactam (Zosyn) IVPB 4.5 g (0 g IntraVENous Stopped 03/05/232115) vancomycin (Vancocin) 1,500 mg in dextrose 5 % 250 mL IVPB (0 mg IntraVENous Stopped 03/05/232338) acetaminophen (Tylenol) tablet 1,000 mg (1,000 mg Per G Tube Given 03/05/232050) iopamidol (Isovue-370) 76 % injection 75 mL (75 mL IntraVENous Given 03/05/232034) potassium chloride 20 mEq in sodium chloride 0.9 % 250 mL IVPB (0 mEq IntraVENous Stopped 03/06/23 115) potassium chloride (Klor-Con) packet 40 mEq (40 mEq Per G Tube Given 03/08/23 120) REVAL: CRITICAL CARE TIME CONSULTS: IP CONSULT TO GI IP CONSULT TO VASCULAR SURGERY IP CONSULT TO DIETITIAN PROCEDURES: Unless otherwise noted below, none Procedures Patients symptoms are consistent with sepsis, severe sepsis, or septic shock (If yes use ".sepsiscoremeasure"): CORE MEASURE DATA SIRS Criteria Sepsis Criteria Severe Sepsis Criteria Septic Shock Criteria Must meet 2: [x] Temperature > 100.4 F (38 C) or < 96.8 F (36 C) [x] HR > 90 [] RR > 20 [] WBC > 12 or < 4 or 10% bands Must be confirmed or suspected to move forward with diagnosis of sepsis. [x] Infection Confirmed or Suspected. [] No infection present. Patient does not meet criteria for Sepsis. Must meet 1: [] Lactate > 2 or [] Signs of Organ Dysfunction: - SBP < 90 or MAP < 65 - Altered mental status - Creatinine > 2 or increased from baseline - Urine Output < 0.5 ml/kg/hr - Bilirubin > 2 - INR > 1.5 - Platelets < 100,000 - Acute Respiratory Failure as evidenced by new need for NIPPV or mechanical ventilation [] No criteria met for Severe Sepsis. Must meet 1: [] Lactate = or > 4 or [] SBP < 90 or MAP < 65 for at least two readings in the first hour after fluid bolus administration [] No criteria met for Septic Shock. No data found. Recent Labs 03/06/23 0511 03/07/23 0601 03/07/23 0602 03/08/23 0450 WBC 7.4 -- 6.6 6.2 CREATININE 1.34* 0.92 -- 0.83 BILITOT 1.0 -- -- -- PLT 217 -- 208 218 Sepsis Identified at 2011. Fluid Resuscitation Rational: Patient does not meet criteria for Severe Sepsis or Septic Shock. 30mL/kg bolus not indicated. Infection Source: Unknown Reassessment Exam: Not applicable. Patient does not have Septic Shock. L IMPRESSION 1. Sepsis (HCC) DISPOSITION Admit 03/05/2023 11:44:42 PM PATIENT REFERRED TO: No follow-up provider specified. DISCHARGE MEDICATIONS: Current Discharge Medication List (Comment: Please note this report has been produced using speech recognition software and may contain errors related to that system including errors in grammar, punctuation, and spelling, as well as words and phrases that may be inappropriate. If there are any questions or concerns please feel free to contact the dictating provider for clarification.) Miguel Kaplan MD (electronically signed) Emergency Medicine Provider Miguel Kaplan MD Resident 03/08/232048 Emergency Department Encounter [facility] EMERGENCY DEPT Patient: Catina Land : 1955 Date of Evaluation: 03/05/2023 ED Supervising Physician: Galina Johansen DO I independently examined and evaluated Catina Land. This will serve as my Supervisory note and shared attestation. I did perform a substantive portion of the visit including all aspects of the Medical Decision Making. I wore appropriate PPE for the entirety of this encounter. In brief, Catina Land is a 67 y.o. male that presents to the emergency department from SNF for n/v. Per pt with nbnb emesis for one day. States associated fevers at SNF. [facility] with right-sided hemiparesis. Focused exam: Heart: Tachycardic, regular rhythm Lungs: Decreased breath sounds bilaterally Abd: diffuse abdominal TTP with no peritoneal signs PEG tube in place Brief ED course/MDM: Upon arrival to the ED, patient tachycardic in 120s and febrile at 102.8. Otherwise hemodynamically stable and saturating well on room air. Sepsis protocol initiated as patient is meeting SIRS criteria. Lactate obtained and negative, low sufficient for septic shock. Blood cultures obtained. Given concern for possible aspiration pneumonia versus intra-abdominal process, broad-spectrum antibiotics with vancomycin and Zosyn given. Patient found to have MERCEDES with creatinine 1.36 and BUN of 62, consistent with prerenal acidemia. Given normal saline bolus. CT abd/pelvis with vague decreased density within the periphery of the spleen medially and posteriorly starting proximal splenic infarcts. Patient admitted to medicine for further management. Total critical care time today provided was at least 45 minutes. This excludes seperately billable procedure. Critical care time provided that required close evaluation and/or intervention with concern for patient decompensation. All diagnostic, treatment, and disposition decisions were made by myself in conjunction with the Resident. I also supervised driscoll portions of any procedures performed by the Resident. For all further details of the patient's emergency department visit, please see their documentation. (Comment: Please note this report has been produced using speech recognition software and may contain errors related to that system including errors in grammar, punctuation, and spelling, as well as words and phrases that may be inappropriate. If there are any questions or concerns please feel free to contact the dictating provider for clarification.) Galina Johansen DO [employer] Galina Johansen DO 03/06/23 0337 Bed: 27 Expected date: Expected time: Means of arrival: Comments: EMS Beverly Garcia RN 03/05/23 1733 documented in this encounter [facility] 03-06-2023 Consult note Formatting of th is note is different from the original. Pharmacy Managed Vancomycin Dosing Service Consult Note Consult Date: 03/06/23 Consulted By: Dr. Faith Room: Patient Name: Catina Land Allergies: Patient has no known allergies. Age: 67 y.o. Sex: male Ht: TBW: BMI: There is no height or weight on file to calculate BMI. Calculated CrCl: 44.1 ml/min Lab Results Component Value Date CREATININE 1.36 (H) 03/05/2023 CREATININE 0.87 03/04/2023 CREATININE 1.09 02/25/2023 BUN 62 (H) 03/05/2023 BUN 44 (H) 03/04/2023 BUN 62 (H) 02/25/2023 WBC 10.1 03/05/2023 WBC 10.9 (H) 03/04/2023 WBC 7.7 02/25/2023 Trough: No results found for: VANCOTROUGH Random: No results found for: VANCORANDOM Infectious Diagnosis: Sepsis of Unknown Etiology (goal AUC = 400-600 mg/L*h) Antimicrobials: Patient recently received an antibiotic (last 12 hours) Date/Time Action Medication Dose Rate 03/05/232138 New Bag vancomycin (Vancocin) 1,500 mg in dextrose 5 % 250 mL IVPB 1,500 mg 125 mL/hr 03/05/23 204 New Bag piperacillin-tazobactam (Zosyn) IVPB 4.5 g 4.5 g 200 mL/hr Assessment/Plan: Start Vancomycin 1.5 grams once, followed by 1 gram every 24 hours based on patient age, weight, renal function, and infectious diagnosis (predicted AUC of 432 mg/L*h). Will assess random level at 06:00 on 03/07/23 and adjust as appropriate. Will follow renal function closely. Thank you for this consult. Please page/call with questions. Date: 03/06/23 Time: 3:07 AM Name: Kamran Mendenhall RPh Phone: [phone] [facility] 03-06-2023 Emergency department Note RN to bedside, pt had bowel movement, RN cleaned pt, and did complete linen change, pt on vs and tele monitor, 2 visitors at bedside, RN attempted straight cath, no urine out, resistance met, RN stopped and removed cath when resistance was met, RN called 4N RN who will be taking over pt and informed her or this information, primary RN Michelle also notified of this information Abena Garber RN 03/06/235 T [facility] 03-06-2023 Emergency department Note Report to Michelle RN ending lunch coverage of this pt Abena Garber RN 03/06/234 [facility] 03-06-2023 Emergency department Note RN to bedside to introduce herself to pt and family, pt on vs and tele monitor, side rails up x2, call light within reach, respirations even and unlabored at this time Abena Garber RN 03/06/23 0044 [facility] 03-06-2023 History and physical note History Of Present Illness Catina Land is a 67 y.o. male who presents to the emergency department with chief complaint of nausea vomiting, fever. History provided by patient's family. Patient lives at a rehab facility because he had a stroke and has right-sided hemiparesis. He has been at the facility for around 1 week. Past Medical History He has a past medical history of CAD (coronary artery disease), History of coronary artery bypass graft x 2 (04/2014), Hyperlipidemia, [place], old (03/28/2014), Pneumonia, Presence of stent in coronary artery (03/2014), and Third degree AV block (CMS/HCC) (HCC) (03/28/2014). Surgical History He has a past surgical history that includes Coronary artery bypass graft (04/2014) and Coronary angioplasty (03/28/2014). Social History He reports that he has been smoking cigarettes. He started smoking about 48 years ago. He has been smoking an average of 1 pack per day. He does not have any smokeless tobacco history on file. He reports current alcohol use. He reports that he does not use drugs. Allergies Patient has no known allergies. Medications (Not in a hospital admission) Review of Systems Pertinent positives and negatives as per HPI. 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 rate 18, SpO2 97 %. Relevant Results # CT Chest IMPRESSION: No focal consolidation is seen within the lungs. There is mild atelectasis within the lung bases. A few borderline-enlarged mediastinal lymph nodes are similar to the prior examination, probably reactive. Mild circumferential thickening of the mid to distal thoracic esophagus. This may reflect esophagitis. Correlation with endoscopy or upper GI series may be helpful. # CT Abdomen: IMPRESSION: There are a couple of vague areas of decreased density within the periphery of the spleen medially and posteriorly. The appearance is nonspecific. These could represent splenic infarcts, age uncertain. There are not evident on the CT from 02/16/2023, however may be obscured due to the lack of contrast on that examination. Bilateral adrenal nodules likely reflecting adenomas, stable in appearance. Right renal cyst. Assessment/Plan Principal Problem: Sepsis (HCC) # possible sepsis # Mild circumferential thickening of the mid to distal thoracic esophagus. This may reflect esophagitis # splenic infarcts # MERCEDES # mild hyperkalemia # Transaminitis - lactate wnl - Resp viral panel negative - CT Chest: No focal consolidation. Mild circumferential thickening of the mid to distal thoracic esophagus - CT Abdomen: couple of vague areas of decreased density within the periphery of the spleen medially and posteriorly - check lipase - US abdomen - NPO - IV fluids - on vancomycin and zosyn - urinalysis - follow blood cultures - GI consult - vascular consult # CVA # CAD # HTN # Dyslipidemia - home meds as ordered # DVT ppx - lovenox [employer] Phone: 03-06-2023 History and physical note History Of Present Illness Catina Land is a 67 y.o. male who presents to the emergency department with chief complaint of nausea vomiting, fever. History provided by patient's family. Patient lives at a rehab facility because he had a stroke and has right-sided hemiparesis. He has been at the facility for around 1 week. Past Medical History He has a past medical history of CAD (coronary artery disease), History of coronary artery bypass graft x 2 (04/2014), Hyperlipidemia, [place], old (03/28/2014), Pneumonia, Presence of stent in coronary artery (03/2014), and Third degree AV block (CMS/HCC) (HCC) (03/28/2014). Surgical History He has a past surgical history that includes Coronary artery bypass graft (04/2014) and Coronary angioplasty (03/28/2014). Social History He reports that he has been smoking cigarettes. He started smoking about 48 years ago. He has been smoking an average of 1 pack per day. He does not have any smokeless tobacco history on file. He reports current alcohol use. He reports that he does not use drugs. Allergies Patient has no known allergies. Medications (Not in a hospital admission) Review of Systems Pertinent positives and negatives as per HPI. 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 rate 18, SpO2 97 %. Relevant Results # CT Chest IMPRESSION: No focal consolidation is seen within the lungs. There is mild atelectasis within the lung bases. A few borderline-enlarged mediastinal lymph nodes are similar to the prior examination, probably reactive. Mild circumferential thickening of the mid to distal thoracic esophagus. This may reflect esophagitis. Correlation with endoscopy or upper GI series may be helpful. # CT Abdomen: IMPRESSION: There are a couple of vague areas of decreased density within the periphery of the spleen medially and posteriorly. The appearance is nonspecific. These could represent splenic infarcts, age uncertain. There are not evident on the CT from 02/16/2023, however may be obscured due to the lack of contrast on that examination. Bilateral adrenal nodules likely reflecting adenomas, stable in appearance. Right renal cyst. Assessment/Plan Principal Problem: Sepsis (HCC) # possible sepsis # Mild circumferential thickening of the mid to distal thoracic esophagus. This may reflect esophagitis # splenic infarcts # MERCEDES # mild hyperkalemia # Transaminitis - lactate wnl - Resp viral panel negative - CT Chest: No focal consolidation. Mild circumferential thickening of the mid to distal thoracic esophagus - CT Abdomen: couple of vague areas of decreased density within the periphery of the spleen medially and posteriorly - check lipase - US abdomen - NPO - IV fluids - on vancomycin and zosyn - urinalysis - follow blood cultures - GI consult - vascular consult # CVA # CAD # HTN # Dyslipidemia - home meds as ordered # DVT ppx - lovenox documented in this encounter [facility] 03-05-2023 Emergency department Note Bloodwork and blood cultures completed at this time, awaiting provider for eval, family remains at bedside and call calderon within reach Rosa Landers RN 03/05/231814 [facility] 03-05-2023 Emergency department Note Family at bedside Rosa Landers RN 03/05/23 174 [facility] 03-05-2023 Emergency department Note Bed: 27 Expected date: Expected time: Means of arrival: Comments: EMS Beverly Garcia RN 03/05/231732 [facility] 03-05-2023 Physician Emergency department Note EMERGENCY DEPARTMENT ENCOUNTER Pt Name: Catina Land Birthdate 1955 Date of evaluation: 03/05/2023 ED Provider: Miguel Kaplan MD CHIEF COMPLAINT Chief Complaint Patient presents with Vomiting Patient arrives with EMS from [facility], per ems patient was seen last night here for chest pain and discharged, staff complains of patient having episodes of vomiting all day and are concerned for aspiration pneumonia. Patient has hx of stroke 2 weeks ago and is non verbal and is at baseline mentality per ems. Fever Per family at bedside the patient had a peg tube placed for tube feeds about 2 weeks ago, patient "thumbs up" when this RN asked him if the tube feeds have been hurting or burning during use, patient has 102.8 fever and is tachy in thee 130s HISTORY OF PRESENT ILLNESS (Location/Symptom, Timing/Onset, Context/Setting, Quality, Duration, Modifying Factors, Severity) Note limiting factors. I wore appropriate PPE for the entirety of this encounter. HPI Catina Land is a 67 y.o. male who presents to the emergency department with chief complaint of nausea vomiting, fever. History provided by patient's . Patient lives at a rehab facility because he had a stroke and has right-sided hemiparesis. He has been at the facility for around 1 week. History provided by patient's she states that he had episodes of nonbloody, nonbilious emesis today. States her fever is noticed at the SNF. Facility was worried about the possibility of aspiration pneumonia. Nursing Notes were reviewed. Limitations to history: Altered mental status/confusion Outside historians: Significant other REVIEW OF SYSTEMS Review of Systems Unable to perform ROS: Patient nonverbal Pertinent positives and negatives as per HPI. PAST MEDICAL HISTORY Past Medical History: Diagnosis Date CAD (coronary artery disease) History of coronary artery bypass graft x 2 04/2014 Hyperlipidemia [place], old 03/28/2014 STEMI-inferior Pneumonia Presence of stent in coronary artery 03/2014 Third degree AV block (CMS/HCC) (HCC) 03/28/2014 during inferior STEMI SURGICAL HISTORY Past Surgical History: Procedure Laterality Date CORONARY ANGIOPLASTY 03/28/2014 DANDY to prox RCA x 2 CORONARY ARTERY BYPASS GRAFT 04/2014 SENIOR-LAD, SVG-PD/RCA CURRENT MEDICATIONS Current Discharge Medication List CONTINUE these medications which have NOT CHANGED Details amLODIPine (Norvasc) 10 MG tablet Take 1 tablet (10 mg) by mouth daily. Do not start before February 21, 2023. Qty: 30 tablet, Refills: 0 aspirin 81 MG chewable tablet 1 tablet (81 mg) by Per G Tube route daily for 24 days. Do not start before February 21, 2023. Qty: 24 tablet, Refills: 0 atorvastatin (Lipitor) 40 MG tablet 1 tablet (40 mg) by Per G Tube route daily. Qty: 30 tablet, Refills: 2 carvedilol (Coreg) 25 MG tablet 1 tablet (25 mg) by Per G Tube route in the morning and 1 tablet (25 mg) in the evening. Take with meals. Qty: 60 tablet, Refills: 0 ipratropium-albuterol (Duo-Neb) 0.5-2.5 mg/3 mL nebulizer solution Take 3 mL by nebulization in the morning and 3 mL at noon and 3 mL in the evening. Qty: 180 mL, Refills: 11 melatonin 5 MG tablet Take 1 tablet (5 mg) by mouth Nightly as needed (sleep). Refills: 0 ALLERGIES Patient has no known allergies. FAMILY HISTORY Family History Problem Relation Name Age of Onset Coronary artery disease Mother Cancer Mother Cancer Father SOCIAL HISTORY Social History Socioeconomic History Marital status: Single Tobacco Use Smoking status: Every Day Packs/day: 1.00 Types: Cigarettes Start date: 03/17/1975 Substance and Sexual Activity Alcohol use: Yes Drug use: No SCREENINGS PHYSICAL EXAM ED Triage Vitals [03/05/23 1738] Temp Heart Rate Resp BP (!) 39.3 C (102.8 F) (!) 128 18 137/80 SpO2 Temp Source Heart Rate Source Patient Position 92 % Oral Monitor -- BP Location FiO2 (%) -- -- Physical Exam Constitutional: Appearance: He is ill-appearing. He is not diaphoretic. HENT: Head: Normocephalic and atraumatic. Right Ear: External ear normal. Left Ear: External ear normal. Nose: Nose normal. Mouth/Throat: Mouth: Mucous membranes are dry. Pharynx: Oropharynx is clear. Eyes: Pupils: Pupils are equal, round, and reactive to light. Cardiovascular: Rate and Rhythm: Tachycardia present. Pulses: Normal pulses. Heart sounds: No murmur heard. No friction rub. No gallop. Pulmonary: Breath sounds: Rhonchi present. Abdominal: General: Abdomen is flat. There is no distension. Palpations: Abdomen is soft. Tenderness: There is no abdominal tenderness. Comments: PEG tube in place Musculoskeletal: General: No deformity. Cervical back: Neck supple. Skin: General: Skin is warm. Findings: No lesion or rash. Neurological: Mental Status: He is alert. Mental status is at baseline. Psychiatric: Behavior: Behavior normal. DIAGNOSTIC RESULTS Procedures/EKG: EKG was reviewed by myself. Physician EKG interpretation can be found in [facility] RADIOLOGY (Per Emergency Physician): Interpretation per the Radiologist below, if available at the time of this note: US abdomen limited Final Result Normal sonographic appearance of the right upper quadrant where visualized. Report Dictated on Electronically Signed By: Ramón Tavares Electronically Signed Date/Time: 03/06/2023 8:[address] chest abdomen pelvis with contrast Final Result No focal consolidation is seen within the lungs. There is mild atelectasis within the lung bases. A few borderline-enlarged mediastinal lymph nodes are similar to the prior examination, probably reactive. Mild circumferential thickening of the mid to distal thoracic esophagus. This may reflect esophagitis. Correlation with endoscopy or upper GI series may be helpful. ABDOMEN AND PELVIS: The liver, gallbladder, pancreas, and left kidney appear within normal limits. There is a cyst arising from the upper pole of the right kidney measuring 2.5 cm. There are bilateral adrenal nodules, likely reflecting adenomatous as characterized on the noncontrast CT from 02/16/2023. There are a couple of vague areas of decreased density within the medial and posterior periphery of the spleen. These are not definitely seen on the noncontrast CT. The abdominal aorta is normal in caliber. Scattered vascular calcification is present. There is no retroperitoneal, pelvic, or inguinal lymphadenopathy. The urinary bladder appears grossly normal. The prostate does not appear enlarged. Large and small bowel loops appear grossly normal without evidence of wall thickening or dilatation. A PEG tube terminates within the stomach. The appendix appears normal. There is no free fluid or free air within the abdomen or pelvis. No lytic or blastic lesions are seen on the bone windows. IMPRESSION: There are a couple of vague areas of decreased density within the periphery of the spleen medially and posteriorly. The appearance is nonspecific. These could represent splenic infarcts, age uncertain. There are not evident on the CT from 02/16/2023, however may be obscured due to the lack of contrast on that examination. Bilateral adrenal nodules likely reflecting adenomas, stable in appearance. Right renal cyst. Report Dictated on Electronically Signed By: Tye Roper Electronically Signed Date/Time: 03/05/2023 8:49 PM EDT ED BEDSIDE ULTRASOUND: Performed by ED Physician - none LABS: Labs Reviewed CBC WITH AUTO DIFFERENTIAL - Abnormal Result Value Auto WBC 10.1 RBC 5.46 Hemoglobin 16.6 Hematocrit 48.7 MCV 89.1 MCH 30.4 MCHC 34.1 RDW 15.0 (*) Platelets 303 MPV 9.9 nRBC 0.1 Neutrophils Relative 85.5 (*) Lymphocytes Relative 10.2 (*) Monocytes Relative 3.5 Eosinophils Relative 0.3 (*) Basophils Relative 0.5 Neutrophils Absolute 8.6 (*) Lymphocytes Absolute 1.0 Monocytes Absolute 0.4 Eosinophils Absolute 0.0 Basophils Absolute 0.1 COMPREHENSIVE METABOLIC PANEL - Abnormal SODIUM 140 POTASSIUM 5.5 (*) CHLORIDE 107 CARBON DIOXIDE 22 ANION GAP 10 UREA NITROGEN 62 (*) CREATININE 1.36 (*) GLUCOSE 127 (*) CALCIUM 9.1 AST (SGOT) 67 (*) ALT 54 (*) ALKALINE PHOSPHATASE 74 ALBUMIN 4.0 BILIRUBIN, TOTAL 1.5 (*) TOTAL PROTEIN 7.7 eGFR 57.0 (*) Narrative: Moderately Hemolyzed. Interpret K+, GLUC, ALKP, AST, TP, ALB, TBIL with caution. CBC WITH AUTO DIFFERENTIAL - Abnormal Auto WBC 7.4 RBC 4.84 Hemoglobin 15.0 Hematocrit 44.2 MCV 91.4 MCH 30.9 MCHC 33.9 RDW 14.9 (*) Platelets 217 MPV 10.1 nRBC 0.1 Neutrophils Relative 80.2 (*) Lymphocytes Relative 12.1 (*) Monocytes Relative 6.8 Eosinophils Relative 0.2 (*) Basophils Relative 0.7 Neutrophils Absolute 5.9 Lymphocytes Absolute 0.9 (*) Monocytes Absolute 0.5 Eosinophils Absolute 0.0 Basophils Absolute 0.0 COMPREHENSIVE METABOLIC PANEL - Abnormal SODIUM 143 POTASSIUM 3.4 (*) CHLORIDE 108 (*) CARBON DIOXIDE 25 ANION GAP 9 UREA NITROGEN 61 (*) CREATININE 1.34 (*) GLUCOSE 130 (*) CALCIUM 8.8 AST (SGOT) 34 ALT 43 ALKALINE PHOSPHATASE 79 ALBUMIN 3.2 (*) BILIRUBIN, TOTAL 1.0 TOTAL PROTEIN 6.3 eGFR 58.1 (*) BASIC METABOLIC PANEL - Abnormal SODIUM 144 POTASSIUM 3.9 CHLORIDE 114 (*) CARBON DIOXIDE 27 UREA NITROGEN 50 (*) CREATININE 0.92 GLUCOSE 90 CALCIUM 8.5 ANION GAP 3 eGFR >90.0 Narrative: Slightly Hemolyzed. Interpret K+ with caution. CBC WITH AUTO DIFFERENTIAL - Abnormal Auto WBC 6.6 RBC 4.16 (*) Hemoglobin 12.8 (*) Hematocrit 37.9 (*) MCV 91.0 MCH 30.8 MCHC 33.9 RDW 14.7 (*) Platelets 208 MPV 9.2 nRBC 0.1 Neutrophils Relative 65.2 Lymphocytes Relative 21.5 Monocytes Relative 9.4 Eosinophils Relative 3.3 Basophils Relative 0.6 Neutrophils Absolute 4.3 Lymphocytes Absolute 1.4 Monocytes Absolute 0.6 Eosinophils Absolute 0.2 Basophils Absolute 0.0 BASIC METABOLIC PANEL - Abnormal SODIUM 145 POTASSIUM 3.2 (*) CHLORIDE 111 (*) CARBON DIOXIDE 32 (*) UREA NITROGEN 33 (*) CREATININE 0.83 GLUCOSE 116 (*) CALCIUM 7.8 (*) ANION GAP 2 (*) eGFR >90.0 CBC WITH AUTO DIFFERENTIAL - Abnormal Auto WBC 6.2 RBC 3.89 (*) Hemoglobin 11.7 (*) Hematocrit 35.7 (*) MCV 91.6 MCH 30.0 MCHC 32.7 RDW 14.4 Platelets 218 MPV 9.3 nRBC 0.0 Neutrophils Relative 60.7 Lymphocytes Relative 25.2 Monocytes Relative 9.1 Eosinophils Relative 4.7 Basophils Relative 0.3 Neutrophils Absolute 3.8 Lymphocytes Absolute 1.6 Monocytes Absolute 0.6 Eosinophils Absolute 0.3 Basophils Absolute 0.0 PROCALCITONIN TEST - Abnormal PROCALCITONIN 0.12 (*) Narrative: PCT <0.50 = Low risk of severe sepsis and/or septic shock. PCT >2.00 = High risk of severe sepsis and/or septic shock. BLOOD CULTURE - Normal Blood Culture No growth at 48 hours Narrative: Blood Collection Site: Left Forearm BLOOD CULTURE - Normal Blood Culture No growth at 48 hours Narrative: Blood Collection Site: Right Arm SARS-COV-2 AND RESPIRATORY PCR PANEL - Normal SARS-CoV-2 Not Detected Adenovirus Not Detected Coronavirus HKU1 Not Detected Coronavirus NL63 Not Detected Coronavirus 229E Not Detected Coronavirus OC43 Not Detected Human Metapneumovirus Not Detected Human Rhinovirus/Enterovirus Not Detected Influenza A Not Detected Influenza B Not Detected Parainfluenza 1 Not Detected Parainfluenza 2 Not Detected Parainfluenza 3 Not Detected Parainfluenza 4 Not Detected Respiratory Syncytial Virus Not Detected Bordetella pertussis Not Detected Bordetella parapertussis Not Detected Chlamydia pneumoniae Not Detected Mycoplasma pneumoniae Not Detected Narrative: Methodology: Multiplex PCR SARS-COV-2 ANTIGEN - Normal SARS-CoV-2 Antigen Negative LACTIC ACID, SEPSIS WITH REFLEX IF ELEVATED - Normal LACTIC ACID 1.7 LIPASE - Normal LIPASE 35 MAGNESIUM - Normal MAGNESIUM 2.0 MAGNESIUM - Normal MAGNESIUM 2.1 Narrative: Moderately Hemolyzed. Interpret MAGNESIUM with caution. VANCOMYCIN, RANDOM - Normal VANCOMYCIN 16.8 COMPREHENSIVE METABOLIC PANEL WITH MG REFLEX Narrative: The following orders were created for panel order Comprehensive Metabolic Panel w/ Mg Reflex. Procedure Abnormality Status --------- ------ Comprehensive metabolic p...[[id number]] Abnormal Final result Please view results for these tests on the individual orders. COMPLETE URINALYSIS WITH REFLEX TO CULTURE Narrative: The following orders were created for panel order Urinalysis Complete with reflex to Culture. Procedure Abnormality Status --------- ------ Complete Urinalysis[[id number]] Please view results for these tests on the individual orders. COMPLETE URINALYSIS BASIC METABOLIC PANEL CBC WITH AUTO DIFFERENTIAL All other labs were within normal range or not returned as of this dictation. EMERGENCY DEPARTMENT COURSE and DIFFERENTIAL DIAGNOSIS/MDM: Vitals: Vitals: 03/08/23 0812 03/08/23 1152 03/08/23 1234 03/08/23 1941 BP: 126/67 137/71 BP Location: Right arm Patient Position: Sitting Pulse: 76 76 Resp: 18 18 Temp: 37 C (98.6 F) 37.1 C (98.7 F) TempSrc: Temporal Temporal SpO2: 97% 96% 94% 95% Pt is a 67 yo male presenting from SNF with fevers and vomiting earlier today. Pt has a PEG due to prior stroke with hemiparesis. Nursing facility had concerns for aspiration PNA. On exam pt febrile and tachycardic. Diffuse rhonci noted. Differential includes PNA, gastroenteritis, intraabdominal pathology. Workup shows creatinine of 1.36 consistent with MERCEDES. Potassium of 5.5. Unremarkable CBC, lactic acid, lipase. Negative viral panel. CT chest abdomen pelvis shows findings concerning for splenic infarct. Did send a set of Blood cultures. Due to fever and diffuse rhonchi on exam and concern for aspiration did put the patient on broad-spectrum antibiotics including vancomycin and Zosyn. I discussed the case with internal medicine who agreed to admit the patient due to concerns for sepsis of unknown origin. Diagnoses as of 03/08/232037 Sepsis (HCC) The patient presented with chief complaint of fever, vomiting. The differential diagnosis associated with this patient's presentation includes aspiration pneumonia, UTI, gastroenteritis, other intra-abdominal pathology. Our workup consisted of ordering/reviewing: CBC, CMP, lipase, lactic acid, CT chest abdomen pelvis, viral panel. Patient is in agreement with this plan. Medications amLODIPine (Norvasc) tablet 10 mg (10 mg Oral Given 03/08/23924) aspirin chewable tablet 81 mg (81 mg Per G Tube Given 03/08/23924) atorvastatin (Lipitor) tablet 40 mg (40 mg Per G Tube Given 03/08/23924) carvedilol (Coreg) tablet 25 mg (25 mg Per G Tube Given 03/08/23 1716) ipratropium-albuterol (Duo-Neb) 0.5-2.5 mg/3 mL nebulizer solution 3 mL (3 mL Nebulization Given 03/08/23 1152) melatonin tablet 5 mg (5 mg Oral Incomplete 03/08/232036) acetaminophen (Tylenol) tablet 650 mg (650 mg Oral Incomplete 03/08/232035) Or acetaminophen (Tylenol) suppository 650 mg ( Rectal See Alternative 03/08/232035) ondansetron ODT (Zofran-ODT) disintegrating tablet 4 mg (has no administration in time range) Or ondansetron (Zofran) injection 4 mg (has no administration in time range) polyethylene glycol (PEG) 3350 (Miralax) packet 17 g (has no administration in time range) enoxaparin (Lovenox) syringe 40 mg (40 mg SubCUTAneous Given 03/08/23925) dextrose 5 % and sodium chloride 0.9 % infusion (125 mL/hr IntraVENous New Bag 03/06/23 8228) piperacillin-tazobactam (Zosyn) IVPB 3,375 mg (3,375 mg IntraVENous New Bag 03/08/23 183) pantoprazole (ProtoNix) injection 40 mg (40 mg IntraVENous Incomplete 03/08/232035) And sodium chloride (PF) 0.9 % flush 10 mL (10 mL IntraVENous Incomplete 03/08/232035) lactated Ringer's infusion (75 mL/hr IntraVENous New Bag 03/06/23 1553) oxyCODONE (Roxicodone) immediate release tablet 5 mg (5 mg Per G Tube Incomplete 03/08/232036) sodium chloride 0.9 % bolus 1,000 mL (0 mL IntraVENous Stopped 03/05/232120) piperacillin-tazobactam (Zosyn) IVPB 4.5 g (0 g IntraVENous Stopped 03/05/232115) vancomycin (Vancocin) 1,500 mg in dextrose 5 % 250 mL IVPB (0 mg IntraVENous Stopped 03/05/232338) acetaminophen (Tylenol) tablet 1,000 mg (1,000 mg Per G Tube Given 03/05/232050) iopamidol (Isovue-370) 76 % injection 75 mL (75 mL IntraVENous Given 03/05/232034) potassium chloride 20 mEq in sodium chloride 0.9 % 250 mL IVPB (0 mEq IntraVENous Stopped 03/06/23 1154) potassium chloride (Klor-Con) packet 40 mEq (40 mEq Per G Tube Given 03/08/23 1201) REVAL: CRITICAL CARE TIME CONSULTS: IP CONSULT TO GI IP CONSULT TO VASCULAR SURGERY IP CONSULT TO DIETITIAN PROCEDURES: Unless otherwise noted below, none Procedures Patients symptoms are consistent with sepsis, severe sepsis, or septic shock (If yes use ".sepsiscoremeasure"): CORE MEASURE DATA SIRS Criteria Sepsis Criteria Severe Sepsis Criteria Septic Shock Criteria Must meet 2: [x] Temperature > 100.4 F (38 C) or < 96.8 F (36 C) [x] HR > 90 [] RR > 20 [] WBC > 12 or < 4 or 10% bands Must be confirmed or suspected to move forward with diagnosis of sepsis. [x] Infection Confirmed or Suspected. [] No infection present. Patient does not meet criteria for Sepsis. Must meet 1: [] Lactate > 2 or [] Signs of Organ Dysfunction: - SBP < 90 or MAP < 65 - Altered mental status - Creatinine > 2 or increased from baseline - Urine Output < 0.5 ml/kg/hr - Bilirubin > 2 - INR > 1.5 - Platelets < 100,000 - Acute Respiratory Failure as evidenced by new need for NIPPV or mechanical ventilation [] No criteria met for Severe Sepsis. Must meet 1: [] Lactate = or > 4 or [] SBP < 90 or MAP < 65 for at least two readings in the first hour after fluid bolus administration [] No criteria met for Septic Shock. No data found. Recent Labs 03/06/23 0511 03/07/23 0601 03/07/23 0602 03/08/23 0450 WBC 7.4 -- 6.6 6.2 CREATININE 1.34* 0.92 -- 0.83 BILITOT 1.0 -- -- -- PLT 217 -- 208 218 Sepsis Identified at 2011. Fluid Resuscitation Rational: Patient does not meet criteria for Severe Sepsis or Septic Shock. 30mL/kg bolus not indicated. Infection Source: Unknown Reassessment Exam: Not applicable. Patient does not have Septic Shock. L IMPRESSION 1. Sepsis (HCC) DISPOSITION Admit 03/05/2023 11:44:42 PM PATIENT REFERRED TO: No follow-up provider specified. DISCHARGE MEDICATIONS: Current Discharge Medication List (Comment: Please note this report has been produced using speech recognition software and may contain errors related to that system including errors in grammar, punctuation, and spelling, as well as words and phrases that may be inappropriate. If there are any questions or concerns please feel free to contact the dictating provider for clarification.) Miguel Kaplan MD (electronically signed) Emergency Medicine Provider Miguel Kaplan MD Resident 03/08/232048 [facility] 03-05-2023 Physician Emergency department Note Emergency Department Encounter [facility] EMERGENCY DEPT Patient: Catina Land : 1955 Date of Evaluation: 03/05/2023 ED Supervising Physician: Galina Johansen DO I independently examined and evaluated Catina Land. This will serve as my Supervisory note and shared attestation. I did perform a substantive portion of the visit including all aspects of the Medical Decision Making. I wore appropriate PPE for the entirety of this encounter. In brief, Catina Land is a 67 y.o. male that presents to the emergency department from SNF for n/v. Per pt with nbnb emesis for one day. States associated fevers at SNF. [facility] with right-sided hemiparesis. Focused exam: Heart: Tachycardic, regular rhythm Lungs: Decreased breath sounds bilaterally Abd: diffuse abdominal TTP with no peritoneal signs PEG tube in place Brief ED course/MDM: Upon arrival to the ED, patient tachycardic in 120s and febrile at 102.8. Otherwise hemodynamically stable and saturating well on room air. Sepsis protocol initiated as patient is meeting SIRS criteria. Lactate obtained and negative, low sufficient for septic shock. Blood cultures obtained. Given concern for possible aspiration pneumonia versus intra-abdominal process, broad-spectrum antibiotics with vancomycin and Zosyn given. Patient found to have MERCEDES with creatinine 1.36 and BUN of 62, consistent with prerenal acidemia. Given normal saline bolus. CT abd/pelvis with vague decreased density within the periphery of the spleen medially and posteriorly starting proximal splenic infarcts. Patient admitted to medicine for further management. Total critical care time today provided was at least 45 minutes. This excludes seperately billable procedure. Critical care time provided that required close evaluation and/or intervention with concern for patient decompensation. All diagnostic, treatment, and disposition decisions were made by myself in conjunction with the Resident. I also supervised driscoll portions of any procedures performed by the Resident. For all further details of the patient's emergency department visit, please see their documentation. (Comment: Please note this report has been produced using speech recognition software and may contain errors related to that system including errors in grammar, punctuation, and spelling, as well as words and phrases that may be inappropriate. If there are any questions or concerns please feel free to contact the dictating provider for clarification.) Galina Johansen DO [facility] Galina Johansen DO 03/06/23 0337 [facility] Work Phone: 03-05-2023 Emergency department Note Report called to [facility] by this RN. Kendall Sorenson RN 03/05/23149 [facility] 03-05-2023 Emergency department Note Report called to [facility] by this RN. Kendall Sorenson RN 03/05/23149 Family requested oral care for this patient. Oral care provided by this RN. Pt repositioned per request. Pt denies further needs or complaints and is sleeping currently in bed. Deep easy respirs noted. Kendall Sorenson RN 03/04/232121 EMERGENCY DEPARTMENT ENCOUNTER Pt Name: Catina Land Birthdate 1955 Date of evaluation: 03/04/2023 ED Provider: Maryann Jones DO CHIEF COMPLAINT Chief Complaint Patient presents with Chest Pain HISTORY OF PRESENT ILLNESS (Location/Symptom, Timing/Onset, Context/Setting, Quality, Duration, Modifying Factors, Severity) Note limiting factors. I wore appropriate PPE for the entirety of this encounter. HPI Catina Land is a 67 y.o. male history of recent ischemic stroke 4 weeks ago with right-sided paralysis and aphasia. Presents today from his rehab center for complaints of chest pain per report patient has been having diffuse chest pain since yesterday. No nausea vomiting fevers or any sick contacts Nursing Notes were reviewed. Limitations to history: Dysarthria Outside historians: Family sister and niece and EMS REVIEW OF SYSTEMS Review of Systems Unable to perform ROS: Patient nonverbal Pertinent positives and negatives as per HPI. PAST MEDICAL HISTORY Past Medical History: Diagnosis Date CAD (coronary artery disease) History of coronary artery bypass graft x 2 04/2014 Hyperlipidemia [place], old 03/28/2014 STEMI-inferior Pneumonia Presence of stent in coronary artery 03/2014 Third degree AV block (CMS/HCC) (HCC) 03/28/2014 during inferior STEMI SURGICAL HISTORY Past Surgical History: Procedure Laterality Date CORONARY ANGIOPLASTY 03/28/2014 DANDY to prox RCA x 2 CORONARY ARTERY BYPASS GRAFT 04/2014 SENIOR-LAD, SVG-PD/RCA CURRENT MEDICATIONS Previous Medications AMLODIPINE (NORVASC) 10 MG TABLET Take 1 tablet (10 mg) by mouth daily. Do not start before February 21, 2023. ASPIRIN 81 MG CHEWABLE TABLET 1 tablet (81 mg) by Per G Tube route daily for 24 days. Do not start before February 21, 2023. ATORVASTATIN (LIPITOR) 40 MG TABLET 1 tablet (40 mg) by Per G Tube route daily. CARVEDILOL (COREG) 25 MG TABLET 1 tablet (25 mg) by Per G Tube route in the morning and 1 tablet (25 mg) in the evening. Take with meals. IPRATROPIUM-ALBUTEROL (DUO-NEB) 0.5-2.5 MG/3 ML NEBULIZER SOLUTION Take 3 mL by nebulization in the morning and 3 mL at noon and 3 mL in the evening. MELATONIN 5 MG TABLET Take 1 tablet (5 mg) by mouth Nightly as needed (sleep). ALLERGIES Patient has no known allergies. FAMILY HISTORY Family History Problem Relation Name Age of Onset Coronary artery disease Mother Cancer Mother Cancer Father SOCIAL HISTORY Social History Socioeconomic History Marital status: Single Tobacco Use Smoking status: Every Day Packs/day: 1.00 Types: Cigarettes Start date: 03/17/1975 Substance and Sexual Activity Alcohol use: Yes Drug use: No SCREENINGS PHYSICAL EXAM ED Triage Vitals [03/04/23 1736] Temp Heart Rate Resp BP 36.8 C (98.2 F) 81 14 125/76 SpO2 Temp Source Heart Rate Source Patient Position 94 % Oral Monitor Lying BP Location FiO2 (%) Left arm -- Physical Exam HENT: Head: Normocephalic and atraumatic. Nose: Nose normal. Mouth/Throat: Mouth: Mucous membranes are moist. Pharynx: Oropharynx is clear. Eyes: General: Right eye: No discharge. Left eye: No discharge. Extraocular Movements: Extraocular movements intact. Conjunctiva/sclera: Conjunctivae normal. Pupils: Pupils are equal, round, and reactive to light. Cardiovascular: Rate and Rhythm: Normal rate and regular rhythm. Pulses: Normal pulses. Heart sounds: Normal heart sounds. Pulmonary: Effort: Pulmonary effort is normal. No respiratory distress. Breath sounds: Normal breath sounds. No wheezing. Abdominal: General: Abdomen is flat. Bowel sounds are normal. There is no distension. Palpations: Abdomen is soft. Tenderness: There is no abdominal tenderness. Musculoskeletal: Right lower leg: No edema. Left lower leg: No edema. Skin: General: Skin is warm. Capillary Refill: Capillary refill takes less than 2 seconds. Neurological: Mental Status: He is alert. DIAGNOSTIC RESULTS Procedures/EKG: EKG was reviewed by myself. Physician EKG interpretation can be found in [facility] RADIOLOGY (Per Emergency Physician): Interpretation per the Radiologist below, if available at the time of this note: XR chest 1 view Final Result Impression: No acute consolidative process. Report Dictated on Electronically Signed By: Kyle Monae Electronically Signed Date/Time: 03/04/2023 6:[address] chest angiogram w and/or wo IV contrast (Results Pending) ED BEDSIDE ULTRASOUND: Performed by ED Physician - none LABS: Labs Reviewed BASIC METABOLIC PANEL - Abnormal Result Value SODIUM 140 POTASSIUM 4.2 CHLORIDE 103 CARBON DIOXIDE 33 (*) UREA NITROGEN 44 (*) CREATININE 0.87 GLUCOSE 112 (*) CALCIUM 9.2 ANION GAP 4 eGFR >90.0 CBC WITH AUTO DIFFERENTIAL - Abnormal Auto WBC 10.9 (*) RBC 4.88 Hemoglobin 14.8 Hematocrit 44.4 MCV 91.0 MCH 30.2 MCHC 33.2 RDW 14.9 (*) Platelets 251 MPV 9.3 nRBC 0.0 Neutrophils Relative 79.7 Lymphocytes Relative 11.2 (*) Monocytes Relative 7.4 Eosinophils Relative 1.1 Basophils Relative 0.6 Neutrophils Absolute 8.7 (*) Lymphocytes Absolute 1.2 Monocytes Absolute 0.8 Eosinophils Absolute 0.1 Basophils Absolute 0.1 TROPONIN I - Abnormal TROPONIN I 0.041 (*) Narrative: Patients with high levels of Biotin oral intake (ie >5 mg/day) may have falsely decreased Troponin levels. TROPONIN I All other labs were within normal range or not returned as of this dictation. EMERGENCY DEPARTMENT COURSE and DIFFERENTIAL DIAGNOSIS/MDM: Vitals: Vitals: 03/04/23 1736 03/04/23 1848 BP: 125/76 (!) 146/79 BP Location: Left arm Left arm Patient Position: Lying Lying Pulse: 81 76 Resp: 14 15 Temp: 36.8 C (98.2 F) TempSrc: Oral SpO2: 94% 94% Weight: 68.9 kg (152 lb) Height: 1.626 m (5' 4") Patient is a 67-year-old male presenting today from rehab center for complaints of chest pain history is very much limited due to EMS report as well as patient being nonverbal his family is at bedside however they are not entirely aware of what was going on they are aware that patient was having chest pain yesterday that persisted onto today which brought him in for evaluation. I was able to asked the patient with hand gestures whether he was having chest pain he did give me a thumbs up for this I asked him if he was having shortness of breath he also gave me a thumbs up for this however when asked about anything else on ROS he put a thumbs down. Given that patient is having chest pain and shortness of breath multiple differentials are being considered for this patient's current symptoms we will obtain laboratory work-up we will also get a CTA of his chest as he does have risk factors for a pulmonary embolism. I discussed with the family goals of care and at this time they would like to keep patient full code. I asked if they would like any surgeries to be done if this were required and at this time they seem unsure. I will still obtain laboratory work-up and CAT scans and if any concerning findings to arise then will discuss with the family for further management. Patient's laboratory work-up returned mild bump in his troponin of 0.041 however down from his last documented troponin 3 weeks ago. We will do a delta troponin in 3 hours to further assess. Mild leukocytosis chest x-ray without any concerning findings CT scan is currently pending. Will sign patient out, please see their documentation for further management. Diagnoses as of 03/04/231912 Chest pain, unspecified type Medications - No data to display REVAL: CRITICAL CARE TIME CONSULTS: None PROCEDURES: Unless otherwise noted below, none Procedures Patients symptoms are consistent with sepsis, severe sepsis, or septic shock (If yes use ".sepsiscoremeasure"): FINAL IMPRESSION 1. Chest pain, unspecified type DISPOSITION PATIENT REFERRED TO: No follow-up provider specified. DISCHARGE MEDICATIONS: New Prescriptions No medications on file (Comment: Please note this report has been produced using speech recognition software and may contain errors related to that system including errors in grammar, punctuation, and spelling, as well as words and phrases that may be inappropriate. If there are any questions or concerns please feel free to contact the dictating provider for clarification.) Maryann Jones DO (electronically signed) Emergency Medicine Provider Maryann Jones DO Resident 03/04/231913 Patient presents from [facility] for chest pain. Per EMS patient has aphasia is does not communicate well. Per facility patient was complaining of all over chest pain. When asking patient if he has pain he shrugs his shoulder. He is alert but hard to communicate with. Family will be at bedside shortly. documented in this encounter [facility] 03-04-2023 Hospital Discharg e magdalena [place] PA-C - 03/04/2023 10:35 PM EDT Please follow up with your PCP in 2-3 days. Return to the emergency department if new or worsening symptoms develop. The following attachments cannot be sent through Care Everywhere.Chest Pain Discharge Instructions (Moroccan)documented in this encounter [facility] 03-04-2023 Emergency department Note Family requested oral care for this patient. Oral care provided by this RN. Pt repositioned per request. Pt denies further needs or complaints and is sleeping currently in bed. Deep easy respirs noted. Kendall Sorenson RN 03/04/232121 [facility] 03-04-2023 Emergency department Triage note Patient presents from [facility] for chest pain. Per EMS patient has aphasia is does not communicate well. Per facility patient was complaining of all over chest pain. When asking patient if he has pain he shrugs his shoulder. He is alert but hard to communicate with. Family will be at bedside shortly. [facility] 03-04-2023 Physician Emergency department Note EMERGENCY DEPARTMENT ENCOUNTER Pt Name: Catina Land Birthdate 1955 Date of evaluation: 03/04/2023 ED Provider: Maryann Jones DO CHIEF COMPLAINT Chief Complaint Patient presents with Chest Pain HISTORY OF PRESENT ILLNESS (Location/Symptom, Timing/Onset, Context/Setting, Quality, Duration, Modifying Factors, Severity) Note limiting factors. I wore appropriate PPE for the entirety of this encounter. HPI Catina Land is a 67 y.o. male history of recent ischemic stroke 4 weeks ago with right-sided paralysis and aphasia. Presents today from his rehab center for complaints of chest pain per report patient has been having diffuse chest pain since yesterday. No nausea vomiting fevers or any sick contacts Nursing Notes were reviewed. Limitations to history: Dysarthria Outside historians: Family sister and niece and EMS REVIEW OF SYSTEMS Review of Systems Unable to perform ROS: Patient nonverbal Pertinent positives and negatives as per HPI. PAST MEDICAL HISTORY Past Medical History: Diagnosis Date CAD (coronary artery disease) History of coronary artery bypass graft x 2 04/2014 Hyperlipidemia [place], old 03/28/2014 STEMI-inferior Pneumonia Presence of stent in coronary artery 03/2014 Third degree AV block (CMS/HCC) (HCC) 03/28/2014 during inferior STEMI SURGICAL HISTORY Past Surgical History: Procedure Laterality Date CORONARY ANGIOPLASTY 03/28/2014 DANDY to prox RCA x 2 CORONARY ARTERY BYPASS GRAFT 04/2014 SENIOR-LAD, SVG-PD/RCA CURRENT MEDICATIONS Previous Medications AMLODIPINE (NORVASC) 10 MG TABLET Take 1 tablet (10 mg) by mouth daily. Do not start before February 21, 2023. ASPIRIN 81 MG CHEWABLE TABLET 1 tablet (81 mg) by Per G Tube route daily for 24 days. Do not start before February 21, 2023. ATORVASTATIN (LIPITOR) 40 MG TABLET 1 tablet (40 mg) by Per G Tube route daily. CARVEDILOL (COREG) 25 MG TABLET 1 tablet (25 mg) by Per G Tube route in the morning and 1 tablet (25 mg) in the evening. Take with meals. IPRATROPIUM-ALBUTEROL (DUO-NEB) 0.5-2.5 MG/3 ML NEBULIZER SOLUTION Take 3 mL by nebulization in the morning and 3 mL at noon and 3 mL in the evening. MELATONIN 5 MG TABLET Take 1 tablet (5 mg) by mouth Nightly as needed (sleep). ALLERGIES Patient has no known allergies. FAMILY HISTORY Family History Problem Relation Name Age of Onset Coronary artery disease Mother Cancer Mother Cancer Father SOCIAL HISTORY Social History Socioeconomic History Marital status: Single Tobacco Use Smoking status: Every Day Packs/day: 1.00 Types: Cigarettes Start date: 03/17/1975 Substance and Sexual Activity Alcohol use: Yes Drug use: No SCREENINGS PHYSICAL EXAM ED Triage Vitals [03/04/23 1736] Temp Heart Rate Resp BP 36.8 C (98.2 F) 81 14 125/76 SpO2 Temp Source Heart Rate Source Patient Position 94 % Oral Monitor Lying BP Location FiO2 (%) Left arm -- Physical Exam HENT: Head: Normocephalic and atraumatic. Nose: Nose normal. Mouth/Throat: Mouth: Mucous membranes are moist. Pharynx: Oropharynx is clear. Eyes: General: Right eye: No discharge. Left eye: No discharge. Extraocular Movements: Extraocular movements intact. Conjunctiva/sclera: Conjunctivae normal. Pupils: Pupils are equal, round, and reactive to light. Cardiovascular: Rate and Rhythm: Normal rate and regular rhythm. Pulses: Normal pulses. Heart sounds: Normal heart sounds. Pulmonary: Effort: Pulmonary effort is normal. No respiratory distress. Breath sounds: Normal breath sounds. No wheezing. Abdominal: General: Abdomen is flat. Bowel sounds are normal. There is no distension. Palpations: Abdomen is soft. Tenderness: There is no abdominal tenderness. Musculoskeletal: Right lower leg: No edema. Left lower leg: No edema. Skin: General: Skin is warm. Capillary Refill: Capillary refill takes less than 2 seconds. Neurological: Mental Status: He is alert. DIAGNOSTIC RESULTS Procedures/EKG: EKG was reviewed by myself. Physician EKG interpretation can be found in [facility] RADIOLOGY (Per Emergency Physician): Interpretation per the Radiologist below, if available at the time of this note: XR chest 1 view Final Result Impression: No acute consolidative process. Report Dictated on Electronically Signed By: Kyle Monae Electronically Signed Date/Time: 03/04/2023 6:[address] chest angiogram w and/or wo IV contrast (Results Pending) ED BEDSIDE ULTRASOUND: Performed by ED Physician - none LABS: Labs Reviewed BASIC METABOLIC PANEL - Abnormal Result Value SODIUM 140 POTASSIUM 4.2 CHLORIDE 103 CARBON DIOXIDE 33 (*) UREA NITROGEN 44 (*) CREATININE 0.87 GLUCOSE 112 (*) CALCIUM 9.2 ANION GAP 4 eGFR >90.0 CBC WITH AUTO DIFFERENTIAL - Abnormal Auto WBC 10.9 (*) RBC 4.88 Hemoglobin 14.8 Hematocrit 44.4 MCV 91.0 MCH 30.2 MCHC 33.2 RDW 14.9 (*) Platelets 251 MPV 9.3 nRBC 0.0 Neutrophils Relative 79.7 Lymphocytes Relative 11.2 (*) Monocytes Relative 7.4 Eosinophils Relative 1.1 Basophils Relative 0.6 Neutrophils Absolute 8.7 (*) Lymphocytes Absolute 1.2 Monocytes Absolute 0.8 Eosinophils Absolute 0.1 Basophils Absolute 0.1 TROPONIN I - Abnormal TROPONIN I 0.041 (*) Narrative: Patients with high levels of Biotin oral intake (ie >5 mg/day) may have falsely decreased Troponin levels. TROPONIN I All other labs were within normal range or not returned as of this dictation. EMERGENCY DEPARTMENT COURSE and DIFFERENTIAL DIAGNOSIS/MDM: Vitals: Vitals: 03/04/23 1736 03/04/23 1848 BP: 125/76 (!) 146/79 BP Location: Left arm Left arm Patient Position: Lying Lying Pulse: 81 76 Resp: 14 15 Temp: 36.8 C (98.2 F) TempSrc: Oral SpO2: 94% 94% Weight: 68.9 kg (152 lb) Height: 1.626 m (5' 4") Patient is a 67-year-old male presenting today from rehab center for complaints of chest pain history is very much limited due to EMS report as well as patient being nonverbal his family is at bedside however they are not entirely aware of what was going on they are aware that patient was having chest pain yesterday that persisted onto today which brought him in for evaluation. I was able to asked the patient with hand gestures whether he was having chest pain he did give me a thumbs up for this I asked him if he was having shortness of breath he also gave me a thumbs up for this however when asked about anything else on ROS he put a thumbs down. Given that patient is having chest pain and shortness of breath multiple differentials are being considered for this patient's current symptoms we will obtain laboratory work-up we will also get a CTA of his chest as he does have risk factors for a pulmonary embolism. I discussed with the family goals of care and at this time they would like to keep patient full code. I asked if they would like any surgeries to be done if this were required and at this time they seem unsure. I will still obtain laboratory work-up and CAT scans and if any concerning findings to arise then will discuss with the family for further management. Patient's laboratory work-up returned mild bump in his troponin of 0.041 however down from his last documented troponin 3 weeks ago. We will do a delta troponin in 3 hours to further assess. Mild leukocytosis chest x-ray without any concerning findings CT scan is currently pending. Will sign patient out, please see their documentation for further management. Diagnoses as of 03/04/231912 Chest pain, unspecified type Medications - No data to display REVAL: CRITICAL CARE TIME CONSULTS: None PROCEDURES: Unless otherwise noted below, none Procedures Patients symptoms are consistent with sepsis, severe sepsis, or septic shock (If yes use ".sepsiscoremeasure"): FINAL IMPRESSION 1. Chest pain, unspecified type DISPOSITION PATIENT REFERRED TO: No follow-up provider specified. DISCHARGE MEDICATIONS: New Prescriptions No medications on file (Comment: Please note this report has been produced using speech recognition software and may contain errors related to that system including errors in grammar, punctuation, and spelling, as well as words and phrases that may be inappropriate. If there are any questions or concerns please feel free to contact the dictating provider for clarification.) Maryann Jones DO (electronically signed) Emergency Medicine Provider Maryann Jones DO Resident 03/04/231913 [employer] Phone: 02-26-2023 Miscellaneous Notes Problem: Pain - Adult Goal: Verbalizes/displays adequate comfort level or baseline comfort level Outcome: Adequate for Discharge Problem: Safety - Adult Goal: Free from fall injury Outcome: Adequate for Discharge Problem: Discharge Planning Goal: Discharge to home or other facility with appropriate resources Outcome: Adequate for Discharge Problem: Chronic Conditions and Co-morbidities Goal: Patient's chronic conditions and co-morbidity symptoms are monitored and maintained or improved Outcome: Adequate for Discharge Problem: Knowledge Deficit Goal: Patient/family/caregiver demonstrates understanding of disease process, treatment plan, medications, and discharge instructions Outcome: Adequate for Discharge Problem: Potential for Compromised Skin Integrity Goal: Skin Integrity is Maintained or Improved Outcome: Adequate for Discharge Goal: Nutritional status is improving Outcome: Adequate for Discharge Problem: Urinary Incontinence Goal: Perineal skin integrity is maintained or improved Outcome: Adequate for Discharge Problem: Problem Interventions Goal: Assess Nutritional Intake Outcome: Adequate for Discharge Patient Choice Patient Name: CATINA LAND Date of : 1955 All Providers Sent Referral Name: [facility] Phone: [phone] Address: [address] [email or web address] [place] [address] Name: [facility] Phone: [phone] Address: [address] [place] [address] Updated therapy and clinical progress notes sent via Careport to [facility] per TCC request. TCC notified. Images from the original note were not included. Care Management Progress Note TCC called leighann - sister- they did not like [facility] after they visited and want to stop auth - notified [facility] liaison and CHIP WASHER to send updated clinicals to [facility]- discharge orders in [facility]- staff to do covid- TCC porton of edyta updated- and now need to wait for NEW auth to [facility]- PT to get updated Discharge Milestones and Delays Expected Date/Time: 02/25/2023 Disposition: Hospice/Medical Facility Transport status: No current request Discharge Milestones Place discharge order Enter post-discharge transportation status Complete med reconciliation Request transport Case mgmt discharge readiness PT discharge readiness Expected Discharge History Expected Date/Time Set By Reviewed At 02/25/2023 Sarah Beth Travis 02/25/2023 9:23 AM TCC estimate 02/25/2023 Alfreda Manning, ROBERT 02/25/2023 9:18 AM 02/24/2023 Alfreda Manning, ROBERT 02/24/2023 6:41 AM 02/23/2023 Alfreda Manning RN 02/23/2023 6:35 AM 02/23/2023 Alfreda Manning, ROBERT 02/22/2023 9:23 AM 02/24/2023 Alfreda Manning, ROBERT 02/21/2023 9:20 AM 02/21/2023 Alfreda Manning, ROBERT 02/18/2023 7:38 AM 02/19/2023 Regi Gallagher, ROBERT 02/17/2023 9:25 AM 02/18/2023 Regi Gallagher, RN 02/17/2023 9:25 AM 02/18/2023 Regi Gallagher, RN 02/16/2023 8:55 AM 02/17/2023 Regi Gallagher, RN 02/15/2023 9:31 AM 02/17/2023 Regi Gallagher, RN 02/14/2023 9:30 AM 02/15/2023 Regi Gallagher, RN 02/11/2023 9:21 AM 02/15/2023 Regi Gallagher, ROBERT 02/10/2023 9:15 AM 02/14/2023 Regi Gallagher, RN 02/09/2023 9:35 AM 02/12/2023 Regi Gallagher RN 02/08/2023 8:40 AM 02/12/2023 Regi Gallagher RN 02/07/2023 11:40 AM 02/12/2023 Thom Chopra APRN - JACLYN 02/05/2023 1:42 PM 02/12/2023 Thom Chopra APRN - JACLYN 02/05/2023 1:08 PM Length of Stay (Days): 20 GMLOS: No GMLOS Documented Referral sent via Careport to [facility] per TCC request. Await review and response regarding ability to accept. TCC notified. Referral sent via Careport to [facility] per TCC request. Await review and response regarding ability to accept. TCC notified. Images from the original note were not included. 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 Discharge Milestones and Delays Expected Date/Time: 02/23/[address] discharge order Enter post-discharge transportation status Complete med reconciliation Request transport Case mgmt discharge readiness Expected Discharge History Expected Date/Time Set By Reviewed At 02/23/2023 Alfreda Manning RN 02/23/2023 6:35 AM TCC estimate 02/23/2023 Alfreda Manning, ROBERT 02/22/2023 9:23 AM 02/24/2023 Alfreda Manning, ROBERT 02/21/2023 9:20 AM 02/21/2023 Alfreda Manning, ROBERT 02/18/2023 7:38 AM 02/19/2023 Regi Gallagher, ROBERT 02/17/2023 9:25 AM 02/18/2023 Regi Gallagher, ROBERT 02/17/2023 9:25 AM 02/18/2023 Reig Gallagher, ROBERT 02/16/2023 8:55 AM 02/17/2023 Regi Gallagher, ROBERT 02/15/2023 9:31 AM 02/17/2023 Regi Gallagher, RN 02/14/2023 9:30 AM 02/15/2023 Regi Gallagher, RN 02/11/2023 9:21 AM 02/15/2023 Regi Gallagher, ROBERT 02/10/2023 9:15 AM 02/14/2023 Regi Gallagher, ROBERT 02/09/2023 9:35 AM 02/12/2023 Regi Gallagher, ROBERT 02/08/2023 8:40 AM 02/12/2023 Regi Gallagher RN 02/07/2023 11:40 AM 02/12/2023 PATRICK Oreilly CNP 02/05/2023 1:42 PM 02/12/2023 PATRICK Oreilly CNP 02/05/2023 1:08 PM Length of Stay (Days): 18 GMLOS: No GMLOS Documented Met with pt's sister Leighann and pt's niece Evelin. Additional questions about guardianship process answered. Probate Court is closed today due to possible riots/events in [place]. Family hoping to go to Probate Court next week. Family asking for Health Care POA paperwork for themselves. Paperwork provided. Images from the original note were not included. Care Management Progress Note [facility] auth in progress edyta need done by attending she is aware- ready for discharge- family not at bedside-but on way in - will give them updated info and a list for snfs incase denied as back up plan . Discharge Milestones and Delays Expected Date/Time: 02/23/[address] discharge order Enter post-discharge transportation status Complete med reconciliation Request transport Case mgmt discharge readiness Expected Discharge History Expected Date/Time Set By Reviewed At 02/23/2023 Alfreda Manning RN 02/22/2023 9:23 AM TCC estimate 02/24/2023 Alfreda Manning RN 02/21/2023 9:20 AM 02/21/2023 Alfreda Manning RN 02/18/2023 7:38 AM 02/19/2023 Regi Gallagher RN 02/17/2023 9:25 AM 02/18/2023 Regi Gallagher RN 02/17/2023 9:25 AM 02/18/2023 Regi Gallagher RN 02/16/2023 8:55 AM 02/17/2023 Regi Gallagher RN 02/15/2023 9:31 AM 02/17/2023 Regi Gallagher RN 02/14/2023 9:30 AM 02/15/2023 Regi Gallagher RN 02/11/2023 9:21 AM 02/15/2023 Regi Gallagher RN 02/10/2023 9:15 AM 02/14/2023 Regi Gallagher RN 02/09/2023 9:35 AM 02/12/2023 Regi Gallagher RN 02/08/2023 8:40 AM 02/12/2023 Regi Gallagher RN 02/07/2023 11:40 AM 02/12/2023 PATRICK Oreilly CNP 02/05/2023 1:42 PM 02/12/2023 PATRICK Oreilly CNP 02/05/2023 1:08 PM Length of Stay (Days): 17 GMLOS: No GMLOS Documented Problem: Pain - Adult Goal: Verbalizes/displays adequate comfort level or baseline comfort level Outcome: Progressing Problem: Safety - Adult Goal: Free from fall injury Outcome: Progressing Problem: Discharge Planning Goal: Discharge to home or other facility with appropriate resources Outcome: Progressing Problem: Chronic Conditions and Co-morbidities Goal: Patient's chronic conditions and co-morbidity symptoms are monitored and maintained or improved Outcome: Progressing Problem: Knowledge Deficit Goal: Patient/family/caregiver demonstrates understanding of disease process, treatment plan, medications, and discharge instructions Outcome: Progressing Problem: Potential for Compromised Skin Integrity Goal: Skin Integrity is Maintained or Improved Outcome: Progressing Goal: Nutritional status is improving Outcome: Progressing Problem: Urinary Incontinence Goal: Perineal skin integrity is maintained or improved Outcome: Progressing Problem: Problem Interventions Goal: Assess Nutritional Intake Outcome: Progressing Problem: Pain - Adult Goal: Verbalizes/displays adequate comfort level or baseline comfort level Outcome: Progressing Problem: Safety - Adult Goal: Free from fall injury Outcome: Progressing Problem: Discharge Planning Goal: Discharge to home or other facility with appropriate resources Outcome: Progressing Problem: Chronic Conditions and Co-morbidities Goal: Patient's chronic conditions and co-morbidity symptoms are monitored and maintained or improved Outcome: Progressing Problem: Knowledge Deficit Goal: Patient/family/caregiver demonstrates understanding of disease process, treatment plan, medications, and discharge instructions Outcome: Progressing Problem: Potential for Compromised Skin Integrity Goal: Skin Integrity is Maintained or Improved Outcome: Progressing Goal: Nutritional status is improving Outcome: Progressing Problem: Urinary Incontinence Goal: Perineal skin integrity is maintained or improved Outcome: Progressing Problem: Problem Interventions Goal: Assess Nutritional Intake Outcome: Progressing Problem: Pain - Adult Goal: Verbalizes/displays adequate comfort level or baseline comfort level Outcome: Progressing Problem: Safety - Adult Goal: Free from fall injury Outcome: Progressing Problem: Discharge Planning Goal: Discharge to home or other facility with appropriate resources Outcome: Progressing Problem: Chronic Conditions and Co-morbidities Goal: Patient's chronic conditions and co-morbidity symptoms are monitored and maintained or improved Outcome: Progressing Problem: Knowledge Deficit Goal: Patient/family/caregiver demonstrates understanding of disease process, treatment plan, medications, and discharge instructions Outcome: Progressing Problem: Potential for Compromised Skin Integrity Goal: Skin Integrity is Maintained or Improved Outcome: Progressing Goal: Nutritional status is improving Outcome: Progressing Problem: Urinary Incontinence Goal: Perineal skin integrity is maintained or improved Outcome: Progressing Problem: Problem Interventions Goal: Assess Nutritional Intake Outcome: Progressing Met with pt's sister, Leighann, who was at pt's bedside. Provided her with the Expert Evaluation forms that were completed by Geriatrics. Original given to sister. Copy placed on pt's chart. Info provided on guardianship. Questions answered. Sister indicates that she and her sister, Elsy, as well as her daughter, Evelin, will be discussing guardianship and who would be best to apply for pt. [facility] Leighann- pt's sister, currently resides in [place], but here currently and willing to assist as needed. Retired nurse. Phone number [phone]. Elsy-pt's sister, currently resides in [place] and working as a nurse. Phone number [phone] Radha santoro's niece ( and Leighann's daughter) who resides in [facility] who works as inventory accountant. Phone number [phone]. Problem: Pain - Adult Goal: Verbalizes/displays adequate comfort level or baseline comfort level Outcome: Progressing Problem: Safety - Adult Goal: Free from fall injury Outcome: Progressing Problem: Discharge Planning Goal: Discharge to home or other facility with appropriate resources Outcome: Progressing Problem: Chronic Conditions and Co-morbidities Goal: Patient's chronic conditions and co-morbidity symptoms are monitored and maintained or improved Outcome: Progressing Problem: Knowledge Deficit Goal: Patient/family/caregiver demonstrates understanding of disease process, treatment plan, medications, and discharge instructions Outcome: Progressing Problem: Potential for Compromised Skin Integrity Goal: Skin Integrity is Maintained or Improved Outcome: Progressing Goal: Nutritional status is improving Outcome: Progressing Problem: Urinary Incontinence Goal: Perineal skin integrity is maintained or improved Outcome: Progressing Problem: Problem Interventions Goal: Assess Nutritional Intake Outcome: Progressing Pt now on . SW discussed pt in rounds. JAYLON discussed case with ICU social worker health services. Sister is interested in obtaining guardianship as pt does not have DPOA. Sister is aware of guardianship process, but needs expert evaluation completed to be able to file for guardianship with Probate Court. Recommend that geriatrics be consulted for expert evaluation. SW following. Images from the original note were not included. Care Management Progress Note Transfer from T[facility]- [facility] is goal a t discharge- per epic notes- auth to be started need OT for auth - will be here weekend- anthem -tasked for weekend therapy to see as well- EDYTA done- peg tube- per notes family wants information about guardianship process- SW to notified to follow . Discharge Milestones and Delays Expected Date/Time: 02/21/[address] discharge order Enter post-discharge transportation status Complete med reconciliation Request transport Case mgmt discharge readiness PT discharge readiness Expected Discharge History Expected Date/Time Set By Reviewed At 02/21/2023 Alfreda Manning, ROBERT 02/18/2023 7:38 AM TCC estimate 02/19/2023 Regi Gallagher RN 02/17/2023 9:25 AM 02/18/2023 Regi Gallagher, ROBERT 02/17/2023 9:25 AM 02/18/2023 Regi Gallagher, ROBERT 02/16/2023 8:55 AM 02/17/2023 Regi Gallagher, ROBERT 02/15/2023 9:31 AM 02/17/2023 Regi Gallagher, ROBERT 02/14/2023 9:30 AM 02/15/2023 Regi Gallagher, ROBERT 02/11/2023 9:21 AM 02/15/2023 Regi Gallagher RN 02/10/2023 9:15 AM 02/14/2023 Regi Gallagher RN 02/09/2023 9:35 AM 02/12/2023 Regi Gallagher RN 02/08/2023 8:40 AM 02/12/2023 Regi Gallagher RN 02/07/2023 11:40 AM 02/12/2023 PATRICK Oreilly CNP 02/05/2023 1:42 PM 02/12/2023 PATRICK Oreilly CNP 02/05/2023 1:08 PM Length of Stay (Days): 13 GMLOS: No GMLOS Documented Pt transferring to [facility], pt sister Leighann would like information on seeking guardianship, SW updated and plans to follow up with family on [facility]. Pt had PEG placed yesterday, tolerating goal rate for TF. Confirmed with pt sister Leighann they would like pt to discharge to [facility]. Neurology and ICU team ok with starting auth for pt to go to [facility], liaison would need OT notes. Message left on therapy line for pt to be seen by PT and OT first thing in AM. TCC will follow. Images from the original note were not included. Care Management Progress Note Chart reviewed. Pt remains on T2 for stroke, found large AA thromus-on subcutaneous heparin. PEG placed in IR 02/16. PT recommending IPR, pt and family would like [facility], referral has been placed in [facility]. Per my discussion with [facility] liaison, pt will need to be at goal rate prior to discharge, gen surg ok'd use of G tube for feeds/removal of NG. OK for GMF. SW updated, TCC will follow. Discharge Milestones and Delays Expected Date/Time: 02/18/[address] discharge order Enter post-discharge transportation status Complete med reconciliation Request transport Case mgmt discharge readiness PT discharge readiness Expected Discharge History Expected Date/Time Set By Reviewed At 02/18/2023 Regi Gallagher RN 02/16/2023 8:55 AM TCC estimate 02/17/2023 Regi Gallagher RN 02/15/2023 9:31 AM 02/17/2023 Regi Gallagher RN 02/14/2023 9:30 AM 02/15/2023 Regi Gallagher RN 02/11/2023 9:21 AM 02/15/2023 Regi Gallagher RN 02/10/2023 9:15 AM 02/14/2023 Regi Gallagher RN 02/09/2023 9:35 AM 02/12/2023 Regi Gallagher RN 02/08/2023 8:40 AM 02/12/2023 Regi Gallagher RN 02/07/2023 11:40 AM 02/12/2023 PATRICK Oreilly CNP 02/05/2023 1:42 PM 02/12/2023 PATRICK Oreilly CNP 02/05/2023 1:08 PM Length of Stay (Days): 12 GMLOS: No GMLOS Documented Transportation form completed. Problem: Safety - Medical Restraint Goal: Remains free of injury from restraints (Restraint for Interference with Botany Teacher) Outcome: Progressing Goal: Free from restraint(s) (Restraint for Interference with Botany Teacher) Outcome: Progressing The patient is Moderately Stable - Low risk of patient condition declining or worsening The patient's goals for the shift include ALLISON The clinical goals for the shift include decrease in NIH Over the shift, the patient did not make progress toward the following goals. Barriers to progression include forgetfulness. Recommendations to address these barriers include frequent reminders. Images from the original note were not included. Care Management Progress Note Spoke with pt sisters Leighann and Elsy (over the phone) and niece Eileen in the waiting room. Pt undergoing CESARIO today, MRI pending, working on goal Na 150-155, will likely need PEG for short period of time. Facility choice lists given for IPR, family decided on [facility], SNF list provdided in case not appropriate for IPR. Family appreciative of lists. TCC will follow with SW for placement needs. Discharge Milestones and Delays Expected Date/Time: 02/14/[address] discharge order Enter post-discharge transportation status Complete med reconciliation Request transport Case mgmt discharge readiness PT discharge readiness Expected Discharge History Expected Date/Time Set By Reviewed At 02/14/2023 Regi Gallagher RN 02/09/2023 9:35 AM TCC estimate 02/12/2023 Regi Gallagher RN 02/08/2023 8:40 AM 02/12/2023 Regi Gallagher RN 02/07/2023 11:40 AM 02/12/2023 PATRICK Oreilly CNP 02/05/2023 1:42 PM 02/12/2023 PATRICK Oreilly CNP 02/05/2023 1:08 PM Length of Stay (Days): 4 GMLOS: No GMLOS Documented Neurology follow up scheduled. What's Next What's Next Hospital Follow Up with PATRICK Rojas CNP Saturday March 11, 2023 1:00 PM Please arrive 15 minutes prior to appointment, bring insurance card and photo ID. [facility] [address] [facility] [id number] Arrive at: [facility] Palliative Care Interdisciplinary Team Note: Diagnosis: Principal Problem: Acute ischemic stroke (HCC) Active Problems: Arterial ischemic stroke, MCA (middle cerebral artery), left, acute (HCC) Brain compression (CMS/HCC) (HCC) Cerebral edema (CMS/HCC) (HCC) Troponin level elevated Chief Complaint: Catina Land is a 67 y.o. male with chief complaint of: MCA Reason Palliative Following:Goals of Care and Support Plan:Sign Off Code Status: Full Code Medications: Palliative Care Not Managing Any Medications Nursing: [facility] Social Work: No Unmet Needs Spiritual Care: No Unmet Needs Pharmacy: No Unmet Needs Psychology/Psychiatry: No Unmet Needs Care Managment Initial Assessment Date: 02/07/2023 Patient Name: Catina Land : 1955 Patient Information Source of Information: Patient Ob/Gyn Doctor Name/Contact Information: Leighann ([phone]) & Elsy ([phone]) Cognition/Language: Impaired (Resting,) Permission given to speak with patient field marketing representative/caregiver as indicated: Yes Confirmation of Payer with patient/family: Yes Payer Name: [employer] [place]: Confirmation of Primary Care Physician: No PCP Primary Caregiver: Self If assistance needed, confirmed caregiver ready, willing and able to care for patient at discharge: Confirmed with: Living Arrangements Current Residence: House Number of Floors 2 (laundry in basement) Number of Entry Steps: 3 Bed/Bath Levels: Both first floor Facility: Facility Name: Plan to Return: Lives with: Alone Support Systems: Family members, Friends/neighbors Activities of Daily Living Ambulation: Independent Bathing/Dressing: Independent Elimination/Continence/Toileting: Independent Feeding: Independent Who Assists with Activities of Daily Living: Instrumental Activities of Daily Living Prescription Coverage: Yes Pharmacy Used: [facility] Medication Management: Independent Transportation/Shopping: Independent Transportation Mode: Car Needs Assistance with Transportation at Discharge: No Meal Preparation: Independent Laundry/Cleaning: Independent Finances/Bill Paying: Independent Communication: Independent Types of Care Services/Equipment Utilized Care Services: Dialysis Type: Durable Medical Equipment: Patient's Goal/Discharge Plan Patient expects to be discharged to: Rehab Discharge Planning Actions: Continue to follow Patient's Choice Rights and [employer] and Collaborative Relationships Disclosed as Indicated for Post-Acute Care: Interdisciplinary Team Engagement: Social Work Referral for: Additional Information: Spoke with patient sisters Leighann and Elsy with brandonjennifer Arellano at bedside. Pt admitted for large stroke, unable to receive intervention, remains on 3% NaCl. Pt was changed from DNR CCA to Full Code due to improvement, PT recommending IPR, facility list provided for family to review for pt choice. Discussed at length concerns for pt involvement with decision making. Palliative care met with family today and explained their services, family visibly overwhelmed with the decisions that need to be made and are trying to hold discussions away from pt. Explained the patient is a part of the decision making process and encouraged family to be comfortable talking about pt next steps and and needs at the bedside so pt can feel he is included in his health care and whatever decisions need made. Family verbalize understanding and agree this is a good idea. Pt from home, independent, drives, cares for a 9yo girl that frequently stays with him. Family also very stressed over paying pt bills. Discussed case with SW who plan to meet with family today. TCC will follow up. Regi Gallagher RN documented in this encounter [facility] 02-26-2023 Nurse Note This RN attempted to call report three times to [facility] and phone continuously rang and them gave busy signal. Will attempt to call again. [phone]: Report called to nurse Jackson at [facility]. \\ Patient arrived from T2 for gastrostomy tube placement. Dr. Landa in to speak with the patient's regarding procedure, and consent was obtained. Patient's lab values and allergies were reviewed. Patient was placed supine on exam table, prepped and draped in sterile fashion. Vital signs and medications monitored by anesthesia staff. Patient tolerated the procedure well. Transfer to T2 ICU. Vital signs and medications managed by PATRICK Rodarte CRNA. Per patients sister, patients pharmacy is [facility] phone number [phone]. This RN contacted this pharmacy to review patients home medication list. Per the pharmacist, the patient has not filled any of his medications since March of 2022. 1210- CHILDREN'S COUNSELOR at bedside, dobhuff removed and replaced with NG by CHILDREN'S COUNSELOR at bedside. Xray ordered to verify placement. documented in this encounter [facility] 02-25-2023 History of Presen t illness Narrative Physical Therapy Facility/Department: 3W Physical Therapy Daily Treatment Note NAME: Catina Land : 1955 Date of Service: 02/25/2023 Discharge Recommendations: IP Rehab PT Equipment Recommendations Equipment Needed: No Assessment Requires PT Follow-Up: Yes Assessment: Pt has progressed on 2/4 goals to date. Pt has progressed on bed mobility goal with decrease need for assistance but still required additional cueing for utilizing LUE and LLE for active assistance. Pt has progressed on functional transfers to date with stand pivot transfer from bed to chair. Pt requires Max 2 person assistance for safety, blocking RLE to prevent knee blocking, and support of RUE during transfers. Pt demonstrated improved head control to date, still requiring additional cueing from SPT. Pt has made improvements with visual tracking towards the R achieving ~65 degrees to the R of midline to date. Pt also worked on acknowledging R neglectful side to date utilizing LUE. Pt can tolerate 15+ hours of therapy per week. Continue to recommend IP Rehab. Performance Deficits/Impairments: Decreased functional mobility , Decreased strength, Decreased balance, Decreased ADL status, Decreased sensation, Decreased endurance, Decreased vision/visual deficit Treatment Initiated : 2 FA, 1 TP Patient Diagnosis(es): The primary encounter diagnosis was Acute ischemic stroke (HCC). Diagnoses of Elevated troponin, Abnormal ECG, Cerebral edema (CMS/HCC) (HCC), and Leg edema, right were also pertinent to this visit. 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 has a past surgical history that includes Coronary artery bypass graft (04/2014) and Coronary angioplasty (03/28/2014). Restrictions Restrictions/Precautions Restrictions/Precautions: Fall Risk Required Braces or Orthoses?: (Bilateral L'nard splints for LEs) Lower Extremity Weight Bearing Restrictions Right Lower Extremity Weight Bearing: Weight Bearing As Tolerated Left Lower Extremity Weight Bearing: Weight Bearing As Tolerated Position Activity Restriction Other position/activity restrictions: PEG, abdominal binder, pulse ox, IV, Subjective General Chart Reviewed: Yes Patient Assessed for Rehabilitation Services: Yes Response To Previous Treatment: Patient unable to report, no changes reported from family or staff Family / Caregiver Present: No Diagnosis: acute ischemic stroke, elevated troponin, abnormal ECG Follows Commands: Within Functional Limits Subjective Subjective: Pt lying in bed upon PT treatment. Pt able to answer yes or no questions and occaisonally would use thumbs up/down with questionable accuracy. Pt agreed to participate in PT and was cooperative throughout. Patient Stated Goal: Patient was not cognitively aware and was unable to participate in goal setting at this time. Pain Assessment Pain Assessment: (unable to assess) Pre Treatment Pain Screening Intervention List: Patient able to continue with treatment Cognition/Orientation Overall Cognitive Status: Exceptions Arousal/Alertness: Appropriate responses to stimuli, Inconsistent responses to stimuli Following Commands: Inconsistently follows commands, Follows one step commands with repetition, Follows one step commands with increased time Attention Span: Attends with cues to redirect Safety Judgement: Decreased awareness of need for assistance Problem Solving: Assistance required to correct errors made, Assistance required to identify errors made Insights: Decreased awareness of deficits Initiation: Requires cues for all Sequencing: Requires cues for all Cognition Comment: aphasic, occasionally uses yes or no but typically is inconsistent with response Orientation Level: Unable to assess Objective Bed mobility Rolling to Left: Moderate assistance, 2 Person assistance Supine to Sit: Maximum assistance, 2 Person assistance Sit to Supine: Maximum assistance, 2 Person assistance Scooting: Maximal assistance, 2 Person assistance Comment: Pt required Mod A for rolling to L and Max A x2 for supine to sit due to need for assistance of RLE and RUE management. When cued pt was able to manage LLE and LUE with additional cueing. Pt demonstrated retro lean and would tend to lean towards his R side to date. Transfers Stand Pivot Transfers: 2 Person Assistance, Maximum Assistance Comment: x1 stand pivot transfer from EOB to recliner chair requiring 2 person Max A. Pt required RLE knee blocking to prevent buckling and assistance with RLE advancement for transfer. Ambulation Ambulation: No Balance Posture: Fair Sitting - Static: Poor, + Sitting - Dynamic: Poor, + Standing - Static: Poor, + Comments: Pt sat at the EOB for approx 5 minutes with 2 person assistance fluctuating Mod to Min A for trunk control. To date pt required mostly Mod A due to retro lean in sitting. Pt worked on functional reaching tasks in seated position for approx 3 minutes in each quadrant. Pt requires increased time to complete for forward trunk lean while reaching. Exercises Comments: RLE PROM, LLE AROM and AAROM, RUE PROM, AROM x10 ea direction for ea joint. Other exercises Other exercises?: Yes Other exercises 1: Visual tracking side to side; working on crossing midline towards R neglectful side x10 ea direction. Other exercises 2: Pt worked on using LUE to grab/tap his R neglectful side. Pt able to tap RUE at the wrist, forearm, and attempted elbow. x5 Plan Times per Week: 3-5 Plan Weeks: 2 Current Treatment Recommendations: Strengthening, ROM, Balance Training, Gait Training, Functional Mobility Training, Transfer Training, Safety Education & Training, Equipment Evaluation, Education, & procurement, Patient/Caregiver Education & Training, Neuromuscular Re-education, ADL/Self-care Training, IADL Training Safety Safety Devices Safety Devices in Place: Yes Type of Devices: Call light within reach, Gait belt, Nurse notified, All fall risk precautions in place, Patient at risk for falls, Left in chair, Chair alarm in place (Pulse Ox was disconnected prior to treatment session with reading of 97. Pulse ox was reconnected following treatment session with reading of 96.) Restraints Restraints Initially in Place: No Outcomes Score AM-PAC Score AM-PAC Inpatient Mobility Raw Score: 7 Mobility Inpatient [facility] G-Code Modifier: CM Goals Encounter Problems Encounter Problems (Active) Mobility Patient will ambulate 25 feet with CGA and stephanie-walker or pyramid cane in order to improve safety and independence with mobility. (Not Progressing) Start: 02/07/23 Expected End: 03/09/23 Pain - Adult Transfers Patient will perform bed mobility with SBA in order to improve independence and prepare for out of bed mobility. (Progressing) Start: 02/07/23 Expected End: 03/09/23 Patient will complete functional transfer bed to/from chair with SBA in order to prepare for ambulation. (Progressing) Start: 02/07/23 Expected End: 03/09/23 Patient will complete sit to stand transfer with SBA in order to improve safety and prepare for out of bed mobility. (Not Progressing) Start: 02/07/23 Expected End: 03/09/23 Education Education Given To: Patient Education Provided: PT Role, Plan of Care, Family Education, General Safety, Transfer Training, Pressure Relief, Orientation Education Provided Comments: Pt educated on general safety to call staff for assistance to decrease fall risk. Pt educated on pressure relief strategies with pillows. Continued education needed. Education Method: Verbal Barriers to Learning: Cognition Education Outcome: Continued education needed Therapy Time Individual Co-treatment Time In 1043 Time Out 1121 Minutes 38 Timed Code Treatment Minutes: 38 Minutes (2 FA, 1 TP) This provider wore mask and gloves throughout entire session with patient. Patient s Physical Therapy Plan of Care supervision is transferred to [facility] Rehab Department Physical Therapist. Walter Villasenor, DALTON [facility] Respiratory Care Department Progress Note As part of the Respiratory Assessment Program (RAP), the following Respiratory Therapist evaluation has been completed, including a chart review and clinical/physical assessment. Respiratory Therapist RAP Evaluation Guideline Points 0 1 2 3 4 Points Strongly Consider History Factor No Pulmonary conditions Stable Pulmonary condition(s) Surgery or Intervention that may impact Pulmonary system (at risk) Surgery or Intervention that is impacting Pulmonary system Active Exacerbation of Pulmonary Condition 0 Respiratory Pattern Regular, RR= 12-18 SILVA or Increased RR= 19-24 Irregular, or RR= 25-30 SOB, talk in short sentences, or RR= 31-35 Severe SOB, accessory muscle use, one word answers, or RR>35 1 Aerosol Med(s), High Flow O2 Breath Sounds Clear Diminished in 1 lobe Diminished in ? 2 lobes Adventitious breath sounds Coarse crackles, Wheezes, or Diminished in >2 lobes 4 Aerosol Med(s), Bronchial Hygiene, Hyperinflation Cough & Sputum Strong cough, no secretion retention or production Weak cough, no secretion retention or production Weak cough, w/ production (less often than Q2hr), or secretion retention No cough, w/ secretion retention or production (less often than Q2hr) Significant secretion production (more often than Q2hr) or mucus plug 0 Aerosol Med(s), Bronchial Hygiene, Hyperinflation Level of Activity Ambulatory Ambulatory with Assist Up in chair or edge of bed (dangle) Non-ambulatory, bedridden with active ROM Completely paralyzed or without active ROM 3 Triage 5 0-2 Triage 4 3-5 Triage 3 6-10 Triage 2 11-14 Triage 1 ?15 Total 8 Triage Score = 3 TRIAGE SCORING - SUGGESTED FREQUENCIES Aerosol Therapy Bronchial Hygiene Hyperinflation Triage Score Q4h & PRN 1 Q4hWA (QID) & PRN 2 TID & PRN 3 BID & PRN 4 PRN 5 Therapy(s) Indicated Yes/No Aerosol Medication y Hyperinflation Bronchial Hygiene High Flow Oxygen RT to enter/modify frequency of treatment order in EMR/EHR to match this RAP evaluation. Based on this RAP evaluation the following therapy is being initiated: svn At the following frequency: tid Comments: Thank you for involving Respiratory in the care of this patient, Occupational Therapy Facility/Department: 3W Occupational Therapy Treatment NAME: Catina Land : 1955 Date of Service: 02/24/2023 Discharge Recommendations: IP Rehab Assessment Assessment: Good participation. Follows 90% basic one step commands. RUE/RLE remain flacid. ? R neglect vs visual field cut. Suggest intensive rehab level therapies at discharge. Vision/Hearing Vision Exceptions: (Dynamic sit task, promoting R visual scan, improved posture. Pt demos progressive visual scan to approx 30 degrees R of midline as task progressed.) Subjective Subjective Subjective: Pt in bed, agrees to OT. No pain evident this session. Objective Grooming/Oral Hygiene Skilled Clinical Factors: min assist to wipe face while seated EOB Balance Sitting Balance: (sit EOB approx 20:00; use of L bedrail helps keep pt at midline but pt uses LUE to push toward right. Without support of LUE, mod assist for sit balance. Worked briefly on forearm WB on LUE to promote L weight shift, decrease pushing.) Bed mobility Supine to Sit: Maximum assistance, 2 Person assistance Sit to Supine: Maximum assistance, 2 Person assistance Scooting: Maximal assistance, 2 Person assistance Comment: No AROM RUE this date. Elevated on pillows at end of session to promote edema reduction. Plan Plan Comment: Cont OT per POC Safety Type of devices: Left in bed, Bed alarm in place, Call light within reach AM-PAC Score AM-PAC Inpatient Daily Activity Raw Score: 7 ADL Inpatient CMS G-Code Modifier: CM Goals Encounter Problems Encounter Problems (Active) Balance Patient will maintain dynamic standing balance for 5-10 minutes with supervision in order to demonstrate decreased risk of falling. (Not Addressed) Start: 02/07/23 Expected End: 03/14/23 Bathing Patient will utilize adaptive techniques to bathe body min A. (Not Addressed) Start: 02/07/23 Expected End: 03/14/23 Dressing Upper Extremities Patient will complete upper body dressing min A. (Not Addressed) Start: 02/07/23 Expected End: 03/14/23 Dressings Lower Extremities Patient will dress lower body min A. (Not Addressed) Start: 02/07/23 Expected End: 03/14/23 OT Misc Misc 1 (Progressing) Start: 02/07/23 Expected End: 03/14/23 Patient will tolerate PROM of RUE to decrease risk of contracture formation and help increase AROM. Toileting Patient will complete toileting tasks at standard toilet with min assist. (Not Addressed) Start: 02/07/23 Expected End: 03/14/23 Education Education Provided: (R visual attention) Education Outcome: Continued education needed Therapy Time Individual Co-treatment Time In 1420 Time Out 1506 Minutes 46 Timed Code Treatment Minutes: (Funct--2; Neuro--1) ANA [place] Images from the original note were not included. Hospitalist Progress Note 02/24/2023 Subjective: Admit Date: 02/05/2023 PCP: No primary care provider on file. Room#: W3-335/W3-335 A Interval History: Patient transferred out of ICU onto hospitalist service. 67 YO male W/PMH of CAD, [place], (s/p CABG & stenting), and HLD. Patient presented to [facility] ED on 02/05/23 after being found down on floor of bathroom covered in vomit by EMS. Family had called for a well check after being unable to contact the patient. Last known well time was sometime Tuesday02/03/[address] imaging showed L MCA infarct. Out of window for TNK, not amenable to thrombectomy d/t large established core infarct. He was admitted to T2 ICU. Cardiology following d/t NSTEMI med manage with beta courtney & statin. He was briefly on 3% NaCl for cerebral edema & mass effect. Dobhoff in place for nutrition d/t ongoing speech therapy for dysphagia. Later found to have large AA thrombus. Gen surgery consulted for PEG placement. Geriatric consulted for expert eval pertaining to guardianship process and deemed to be incapable of making medical decisions Patient was seen and examined this AM. Awake, alert and answers yes/no to questions. About the same clinically -currently on 2L NC, CXR yesterday unremarkable. Mild BLE edema noted on PE, received IV Laisx x2. Cont on Br Tx Diet, tube feeding no tray Nasogastric; Jevity 1.5 Kota; Continuous; Yes; 10; 10; 50; Water; Tap water; 50; Q 4 Hours 24HR INTAKE/OUTPUT: Intake/Output Summary (Last 24 hours) at 02/24/2023 1257 Last data filed at 02/24/2023 0632 Gross per 24 hour Intake -- Output 1700 ml Net -1700 ml Past Medical History: Past Medical History: Diagnosis Date CAD (coronary artery disease) History of coronary artery bypass graft x 2 04/2014 Hyperlipidemia [place], old 03/28/2014 STEMI-inferior Pneumonia Presence of stent in coronary artery 03/2014 Third degree AV block (CMS/HCC) (HCC) 03/28/2014 during inferior STEMI LABS: CBC: Recent Labs 02/22/23 0428 02/23/23 0135 02/24/2342 WBC 8.8 7.9 8.1 RBC 4.61 4.56 4.93 HGB 14.0 14.1 14.7 HCT 41.9 41.5 44.0 MCV 90.8 91.0 89.2 RDW 14.5 14.6* 14.7* PLT 285 274 284 BMP: Recent Labs 02/22/2342702/23/2313402/24/2342 NA 140 140 141 K 4.1 4.1 4.1 CL 104 103 100 CO2 32* 34* 35* BUN 43* 43* 52* CREATININE 1.00 0.93 1.09 GLUCOSE 137* 150* 125* CALCIUM 8.8 8.9 9.4 ANIONGAP 3 3 6 LIVER PROFILE: Recent Labs 02/22/2342702/23/2313402/24/2342 AST 51* 51* 56* ALT 61* 65* 77* BILITOT 0.7 0.8 0.8 ALKPHOS 93 95 94 PROT 6.5 6.4 6.9 PT/INR: No results for input(s): PROTIME, INR in the last 72 hours. CARDIAC ENZYMES: No results for input(s): TROPONINI in the last 72 hours. Procalcitonin: No results found for: PROCAL COVID-19 PCR: No results for input(s): COVID19 in the last 72 hours. Objective: Vitals: BP 117/66 (BP Location: Right arm, Patient Position: Sitting) Pulse 73 Temp (!) 35.9 C (96.7 F) (Temporal) Resp 16 Ht 5' 5" (1.651 m) Wt 152 lb 12.5 oz (69.3 kg) SpO2 93% BMI 25.42 kg/m Pulse Ox: SpO2 Av.2 % Min: 93 % Max: 98 % Supplemental O2: O2 Flow Rate (L/min): 2 L/min Patient is alert, awake Heart S1 S2 No murmurs Lungs coarse BS b/l Abdomen soft non distended no organomegaly No pedal edema R sided weakness, aphasia Medications: Current Facility-Administered Medications: acetaminophen (Tylenol) tablet 650 mg, 650 mg, Oral, q6h PRN, 650 mg at 02/13/23 2536 OR acetaminophen (Tylenol) suppository 650 mg, 650 mg, Rectal, q6h PRN, Sarah Lehman-Estephanie, SOCCER REFEREE - ETHYLBENZENE CRACKING SUPERVISOR amLODIPine (Norvasc) tablet 10 mg, 10 mg, Oral, Daily, Sarah Lehman-Estephanie, SOCCER REFEREE - ETHYLBENZENE CRACKING SUPERVISOR, 10 mg at 02/24/23 0936 aspirin chewable tablet 81 mg, 81 mg, Per G Tube, Daily, Wilmer Sheldon DO, 81 mg at 02/24/23 0936 atorvastatin (Lipitor) tablet 40 mg, 40 mg, Per G Tube, Daily, Sarah Lehman-Estephanie, SOCCER REFEREE - ETHYLBENZENE CRACKING SUPERVISOR, 40 mg at 02/23/23 2133 bisacodyl (Dulcolax) suppository 10 mg, 10 mg, Rectal, Daily PRN, Sarah Lehman-Estephanie, SOCCER REFEREE - ETHYLBENZENE CRACKING SUPERVISOR bisacodyl (Dulcolax) suppository 10 mg, 10 mg, Rectal, Daily, Sarah Lehman-Estephanie, SOCCER REFEREE - ETHYLBENZENE CRACKING SUPERVISOR, 10 mg at 02/13/23 0909 carvedilol (Coreg) tablet 25 mg, 25 mg, Per G Tube, BID WC, Sarah Lehman-Estephanie, SOCCER REFEREE - ETHYLBENZENE CRACKING SUPERVISOR, 25 mg at 02/24/23 0936 furosemide (Lasix) 10 MG/ML injection - Pyxis ADS Override Pull, , , , heparin injection 5,000 Units, 5,000 Units, SubCUTAneous, 3 times per day, Sarah Lehman-Estephanie, SOCCER REFEREE - ETHYLBENZENE CRACKING SUPERVISOR, 5,000 Units at 02/24/23 1228 hydrALAZINE (Apresoline) injection 20 mg, 20 mg, IntraVENous, q4h PRN, Sarah Lehman-Estephanie, SOCCER REFEREE - ETHYLBENZENE CRACKING SUPERVISOR, 20 mg at 02/16/23 0705 HYDROcodone kirsten-chlorphe kirsten ER (Tussionex Pennkinetic) 10-8 MG/5ML ER suspension 5 mL, 5 mL, Per G Tube, q12h PRN, Wilmer Sheldon DO iopamidol (Isovue-300) 61 % injection 25 mL, 25 mL, Other, Once PRN, Enzo Landa MD ipratropium-albuterol (Duo-Neb) 0.5-2.5 mg/3 mL nebulizer solution 3 mL, 3 mL, Nebulization, TID, Sarah Beth Ghobryal, 3 mL at 02/24/23 1247 labetalol (Normodyne,Trandate) injection 20 mg, 20 mg, IntraVENous, q4h PRN, Sarah Lehman-Estephanie, SOCCER REFEREE - ETHYLBENZENE CRACKING SUPERVISOR, 20 mg at 02/11/23 0511 lidocaine (Uro-Jet) 2 % gel, , Topical, Once, Sarah Lehman-Estephanie, SOCCER REFEREE - ETHYLBENZENE CRACKING SUPERVISOR melatonin tablet 5 mg, 5 mg, Oral, Nightly PRN, Sarah Ricoodin-Estephanie, SOCCER REFEREE - ETHYLBENZENE CRACKING SUPERVISOR, 5 mg at 02/21/232106 nystatin (Mycostatin) 310391 UNIT/ML suspension 500,000 Units, 5 mL, Swish & Spit, TID, Sarah Lehman-Estephanie, SOCCER REFEREE - ETHYLBENZENE CRACKING SUPERVISOR, 500,000 Units at 02/24/23 1228 ondansetron ODT (Zofran-ODT) disintegrating tablet 4 mg, 4 mg, Oral, q8h PRN OR ondansetron (Zofran) injection 4 mg, 4 mg, IntraVENous, q6h PRN, Sarah Lehman-Estephanie, SOCCER REFEREE - ETHYLBENZENE CRACKING SUPERVISOR pantoprazole (ProtoNix) EC tablet 40 mg, 40 mg, Oral, Nightly, 40 mg at 02/22/232105 OR pantoprazole (ProtoNix) injection 40 mg, 40 mg, IntraVENous, Nightly, Sarah Ricoodin-Estephanie, SOCCER REFEREE - ETHYLBENZENE CRACKING SUPERVISOR, 40 mg at 02/23/232132 polyethylene glycol (PEG) 3350 (Miralax) packet 17 g, 17 g, Oral, BID, Sarah Lehman-Estephanie, SOCCER REFEREE - ETHYLBENZENE CRACKING SUPERVISOR, 17 g at 02/23/232132 polyvinyl alcohol (Liquifilm Tears) 1.4 % ophthalmic solution, , Both Eyes, PRN, Sarah Lehman-Estephanie, SOCCER REFEREE - ETHYLBENZENE CRACKING SUPERVISOR, Given at 02/13/23 1337 senna-docusate sodium (Senokot-S) 8.6-50 MG tablet 2 tablet, 2 tablet, Oral, BID, Sarah Lehman-Estephanie, SOCCER REFEREE - ETHYLBENZENE CRACKING SUPERVISOR, 2 tablet at 02/23/232132 sodium chloride 0.9 % infusion, 5-250 mL/hr, IntraVENous, PRN, Sarah Lehman-Estephanie, SOCCER REFEREE - ETHYLBENZENE CRACKING SUPERVISOR, Stopped at 02/16/23 1534 sodium chloride 0.9% (NS) flush 5-40 mL, 5-40 mL, IntraVENous, q12h, Sarah Berrodin-Estephanie, SOCCER REFEREE - ETHYLBENZENE CRACKING SUPERVISOR, 10 mL at 02/24/23 0039 sodium chloride 0.9% (NS) flush 5-40 mL, 5-40 mL, IntraVENous, PRN, Sarah Berrodin-Estephanie, SOCCER REFEREE - ETHYLBENZENE CRACKING SUPERVISOR, 10 mL at 02/21/23 2107 Assessment Data: (CAT1) Reviewed prior external notes from neurologist, ICU, hotel breakfast attendant unique sources (each=1). (LOW: 2x CAT1 or independent historian MOD: 3x CAT1 or 1x CAT3 EXTENSIVE: 3x CAT1 and 1x CAT3) Acute, acute on chronic, unstable/uncontrolled chronic problems/diagnoses: Left MCA Ischemic Stroke with hemorrhagic conversion, likely embolic with cytotoxic edema and brain compression KATELYNN thrombus Hypertension Acute hypoxic resp failure, on 2L NC, CXR unremarkable, no fever, leucocytosis or cough. Received IV Lasix and will monitor response. Br Tx, IS Debility Dysphagia- peg in place Aphasia Malnutrition Tobacco abuse Stable chronic problems affecting care, new non-acute diagnoses: [place] s/p CABG CAD Hx of 3rd degree AV block Plan As a result of the above findings & factors, the following mgmt was pursued: - start aspirin on today February 20 that will be switched to oral anticoagulant on March 17, when OAC is started, aspirin should be discontinued Complexity: Acute or chronic illness posing a threat to life (HIGH). Risk: Drug therapy requiring intensive monitoring (HIGH). ASA Advance Directive: Full Code Anticipated Discharge - Location - Acute Rehab vs SNF, pending acceptance Total time spent (which include face to face and non face to face encounters) : greater than 40 minutes Extended Emergency Contact Information Primary Emergency Contact: DanieleLeighann Relation: Other Secondary Emergency Contact: LauroEileen Relation: Other Sarah Beth Travis Division of Hospitalist Medicine Inpatient Medical Services/[facility] [place] Speech-Language Pathology Facility/Department: [address] SPEECH THERAPY TREATMENT NAME: Catina Land : 1955 ADMISSION DATE: 02/05/2023 ADMITTING DIAGNOSIS: has History of coronary artery bypass graft x 2; Hyperlipidemia; Presence of stent in coronary artery; CAD (coronary artery disease); WA, old; Acute ischemic stroke (HCC); Arterial ischemic stroke, MCA (middle cerebral artery), left, acute (HCC); Brain compression (CMS/HCC) (HCC); Cerebral edema (CMS/HCC) (HCC); Troponin level elevated; Cognitive impairment; Debility; and Encounter for assessment of decision-making capacity on their problem list. No Known Allergies Onset Date: 02/05/2023 Pain: RN managing General General Chart Reviewed: Yes S: Patient was upright in bed upon entering room. Noted patient was alert and cooperative for speech therapy. Additional preservations noted compared to previous day. O: Expressive and receptive language treatment. A: Patient participated in expressive and receptive language tasks. When asked to imitate consonant sounds (/m/, /s/, /p/) from previous tx, patient showed perseveration of /n/ sound for all productions = 0/6 opportunities. SUPERVISOR DEHYDROGENATION attempted to build off of /n/ production with repeating 'no,' 'knew,' and 'nay' however patient could not repeat in 0/6 opportunities. Patient worked on pointing to body parts for receptive goals, when asked to point to nose and mouth, patient was unable to in 0/6 opportunities. Noted hand over hand provided some success with identifying, however, continued perseverance of pointing to nose for all attempts. When asked to identify an object out of 2 choices, patient showed success in 2/3 attempts. Patient unable to identify object when asked object function in 0/3. Noted patient was able to sing 'Happy birthday' song independently - patient added granddaughter's name into song, showed interest in talking about her. Education Education Given: therapy schedule, role of therapy, goals explained, communication Education Given To: Patient RN name: Lian Education Response: No evidence of learning P: Continue to recommend speech therapy for expressive and receptive deficits. Will continue to follow speech therapy plan of care. Treatment Plan Requires SUPERVISOR DEHYDROGENATION Intervention: Yes Frequency/Duration: 3 days/wk for 2 weeks Treatment/Goals Encounter Problems Encounter Problems (Active) Communication/Dysarthria Patient will follow 1 step commands (Progressing) Start: 02/07/23 Expected End: 03/07/23 Patient will participate in further assessment of speech and language skills (Progressing) Start: 02/07/23 Expected End: 03/07/23 Patient participates in automatic speech tasks (Progressing) Start: 02/07/23 Expected End: 03/07/23 SUPERVISOR DEHYDROGENATION Misc Yes/no questions (Progressing) Start: 02/07/23 Expected End: 03/07/23 Pt will answer simple yes/no questions with 70% accuracy. Therapy Time SUPERVISOR DEHYDROGENATION Individual Minutes Time In: 58 Time Out: 1014 Minutes: 16 DAYANA Martin Student 02/24/2023 10:20 AM Physical Therapy Facility/Department: Physical Therapy Re-Evaluation NAME: Catina Land : 1955 Date of Service: 02/23/2023 Discharge Recommendations: IP Rehab PT Equipment Recommendations Equipment Needed: No Assessment Requires PT Follow-Up: Yes Assessment: PT reevaluation completed to date. Pt has progressed on 1/4 goals to date. Pt still requires need for assistance with bed mobility and requires 2 skilled therapists for safety. Pt requires Max 2 person assistance for all transfers due to need for assistance with blocking RLE to prevent knee blocking, support of RUE, and leg management and placement of RLE. Pt displayed improved sitting EOB balance but still required 2 skilled therapists to assist with additional cueing for head control. Pt has improved with horizontal tracking towards his R neglectful side achieving ~45 degrees to the R of midline to date. POC goals from initial evaluation will continue and are still appropriate. Pt can tolerate 15+ hours of therapy per week. PT recommends IP Rehab. Performance Deficits/Impairments: Decreased functional mobility , Decreased strength, Decreased balance, Decreased ADL status, Decreased sensation, Decreased endurance, Decreased vision/visual deficit Treatment Initiated : 2 FA Activity Tolerance Activity Tolerance: Patient Tolerated treatment well, Patient limited by endurance Activity Tolerance Comments: Pt limited by R sided weakness and R neglect Patient Diagnosis(es): The primary encounter diagnosis was Acute ischemic stroke (HCC). Diagnoses of Elevated troponin, Abnormal ECG, Cerebral edema (CMS/HCC) (HCC), and Leg edema, right were also pertinent to this visit. 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 has a past surgical history that includes Coronary artery bypass graft (04/2014) and Coronary angioplasty (03/28/2014). Restrictions Restrictions/Precautions Restrictions/Precautions: Fall Risk Required Braces or Orthoses?: (BLE L'nard splints) Position Activity Restriction Other position/activity restrictions: PEG, abdominal binder, pulse ox monitor, IV Vision/Hearing Vision: (unable to assess vision at this time but pt was able to click tonal regulator light using with LUE) Hearing: Functional/adequate for paticipation in therapy Cognition/Orientation Overall Cognitive Status: Exceptions Arousal/Alertness: Appropriate responses to stimuli, Inconsistent responses to stimuli Following Commands: Inconsistently follows commands, Follows one step commands with repetition, Follows one step commands with increased time Attention Span: Attends with cues to redirect Safety Judgement: Decreased awareness of need for assistance Problem Solving: Assistance required to correct errors made, Assistance required to identify errors made Insights: Decreased awareness of deficits Initiation: Requires cues for all Sequencing: Requires cues for all Cognition Comment: aphasic, occasionally uses yes or no but typically is inconsistent with response Overall Orientation Status: (Unable to assess at this time. Pt is attentive to his name being called.) Orientation Level: Unable to assess Subjective General Chart Reviewed: Yes Patient Assessed for Rehabilitation Services: Yes Response To Previous Treatment: Patient unable to report, no changes reported from family or staff Family / Caregiver Present: No Diagnosis: acute ischemic stroke, elevated troponin, abnormal ECG Follows Commands: Within Functional Limits Subjective Subjective: Pt lying in bed upon arrival of PT ReEval. Pt able to answer yes or no questions and occasionally uses thumbs up/down. Pt agreed to participate in PT and was cooperative throughout session. Patient Stated Goal: Patient was not cognitively aware and was unable to participate in goal setting at this time. Pain Assessment Pain Assessment: (unable to assess) Pre Treatment Pain Screening Intervention List: Patient able to continue with treatment Social/Functional History Social/Functional History Lives With: Alone Type of Home: House Home Layout: Two level Home Access: Stairs to enter with rails ADL Assistance: Independent Homemaking Assistance: Independent Ambulation Assistance: Independent Transfer Assistance: Independent Objective Observation/Palpation Observation: Pt would lean significantly to R side or backwards due to decreased trunk control. Pt would tend to keep neck flexed unless cued and demonstrated decreased head control with sitting and standing. PROM RLE (degrees) RLE PROM: WFL AROM RLE (degrees) RLE General AROM: No movement on command. Mildly increased tone at times. AROM LLE (degrees) LLE AROM : WFL AROM RUE (degrees) RUE General AROM: No active movement on command AROM LUE (degrees) LUE AROM : WFL Strength RLE Comment: NT with mildly increased tone. No trace contraction. Strength LLE Strength LLE: WFL Sensation Overall Sensation Status: (Unable to formally assess due to pt not being able to consistenly respond to testing) Bed mobility Rolling to Right: Moderate assistance, 2 Person assistance Supine to Sit: Maximum assistance, 2 Person assistance Sit to Supine: Maximum assistance, 2 Person assistance Scooting: Maximal assistance, 2 Person assistance Comment: Rolled to right in order to perform supine to sit with Max 2 person A to date. Pt required assistance for leg management and trunk control. Pt actively using LUE to help with bed mobility using the bedrail. Pt required Max A 2 person for scooting with use of glide sheet. Transfers Sit to Stand: Maximum Assistance, 2 Person Assistance Stand to sit: Maximum Assistance, 2 Person Assistance Bed to Chair: 2 Person Assistance, Maximum assistance Comment: x2 from EOB with 2 person Max A with RLE blocking to prevent knee buckling. Pt required additional cueing for forward trunk lean and sequencing. Pt performed stand pivot transfer from bed to recliner chair and back. Pt required 2 skilled therapist to assist for knee blocking and leg advancement of RLE, support of RUE, and for safety due to poor strength and trunk control. Ambulation Ambulation: No Balance Posture: Fair Sitting - Static: Poor, + Sitting - Dynamic: Poor, + Standing - Static: Poor, + Standing - Dynamic: Poor, + Comments: Pt sat at EOB with 2 person assistance fluctuating from Mod A to Min A at times for trunk control and maintained Min A for ~15 seconds. Pt tended to be retro and would lean towards his R side side. Pt sat at the EOB for approx 8 minutes working on dynamic reaching tasks towards the L side to assist with bring pt's trunk back into midline. Also worked on reaching towards R neglectful side. Pt worked on dynamic reaching task for approx 3 minutes. Exercises Comments: RLE PROM, LLE AROM and AAROM, RUE PROM, LUE AROM x10 ea direction for ea joint. Other exercises Other exercises?: Yes Other exercises 1: Visual tracking side to side; working on crossing midline towards R neglectful side x10 ea direction. Plan Times per Week: 3-5 Plan Weeks: 2 Current Treatment Recommendations: Strengthening, ROM, Balance Training, Gait Training, Functional Mobility Training, Transfer Training, Safety Education & Training, Equipment Evaluation, Education, & procurement, Patient/Caregiver Education & Training, Neuromuscular Re-education, ADL/Self-care Training, IADL Training Safety Safety Devices Safety Devices in Place: Yes Type of Devices: Bed alarm in place, Call light within reach, Left in bed, Gait belt, Nurse notified, All fall risk precautions in place, Patient at risk for falls Restraints Restraints Initially in Place: No Outcomes Score AM-PAC Score AM-PAC Inpatient Mobility Raw Score: 7 Mobility Inpatient [facility] G-Code Modifier: CM Goals Encounter Problems Encounter Problems (Active) Mobility Patient will ambulate 25 feet with CGA and stephanie-walker or pyramid cane in order to improve safety and independence with mobility. (Not Progressing) Start: 02/07/23 Expected End: 03/09/23 Pain - Adult Transfers Patient will perform bed mobility with SBA in order to improve independence and prepare for out of bed mobility. (Progressing) Start: 02/07/23 Expected End: 03/09/23 Patient will complete functional transfer bed to/from chair with SBA in order to prepare for ambulation. (Not Progressing) Start: 02/07/23 Expected End: 03/09/23 Patient will complete sit to stand transfer with SBA in order to improve safety and prepare for out of bed mobility. (Not Progressing) Start: 02/07/23 Expected End: 03/09/23 Education Education Given To: Patient Education Provided: PT Role, Plan of Care, Family Education, General Safety, Transfer Training, Pressure Relief, Orientation Education Provided Comments: Pt educated on general safety to call staff when in need of assistance to decrease falls. Pt educated on pressure relief with use of pillows. Education Method: Verbal Barriers to Learning: Cognition Education Outcome: Continued education needed Therapy Time Individual Co-treatment Time In 1134 Time Out 1232 Minutes 58 Timed Code Treatment Minutes: 30 Minutes (2 FA) Patient s Physical Therapy Plan of Care supervision is transferred to [facility] Physical Therapist. This provider wore mask and gloves throughout entire session with patient. Walter Villasenor, SPT Images from the original note were not included. Hospitalist Progress Note 02/23/2023 Subjective: Admit Date: 02/05/2023 PCP: No primary care provider on file. Room#: W3-335/W3-335 A Interval History: Patient transferred out of ICU onto hospitalist service. 67 YO male W/PMH of CAD, WA, (s/p CABG & stenting), and HLD. Patient presented to [facility] ED on 02/05/23 after being found down on floor of bathroom covered in vomit by EMS. Family had called for a well check after being unable to contact the patient. Last known well time was sometime Tuesday02/03/[address] imaging showed L MCA infarct. Out of window for TNK, not amenable to thrombectomy d/t large established core infarct. He was admitted to T2 ICU. Cardiology following d/t NSTEMI med manage with beta courtney & statin. He was briefly on 3% NaCl for cerebral edema & mass effect. Dobhoff in place for nutrition d/t ongoing speech therapy for dysphagia. Later found to have large AA thrombus. Gen surgery consulted for PEG placement. Geriatric consulted for expert eval pertaining to guardianship process and deemed to be incapable of making medical decisions Patient was seen and examined this AM. He wakes up to name, intermittently follow commands. Answers yes/no to questions. apahasic Diet, tube feeding no tray Nasogastric; Jevity 1.5 Kota; Continuous; Yes; 10; 10; 50; Water; Tap water; 50; Q 4 Hours 24HR INTAKE/OUTPUT: Intake/Output Summary (Last 24 hours) at 02/23/2023 1311 Last data filed at 02/22/2023 1822 Gross per 24 hour Intake -- Output 1100 ml Net -1100 ml Past Medical History: Past Medical History: Diagnosis Date CAD (coronary artery disease) History of coronary artery bypass graft x 2 04/2014 Hyperlipidemia [place], old 03/28/2014 STEMI-inferior Pneumonia Presence of stent in coronary artery 03/2014 Third degree AV block (CMS/HCC) (HCC) 03/28/2014 during inferior STEMI LABS: CBC: Recent Labs 02/21/23 0318 02/22/23 0428 02/23/23 0135 WBC 9.7 8.8 7.9 RBC 4.76 4.61 4.56 HGB 14.2 14.0 14.1 HCT 43.4 41.9 41.5 MCV 91.1 90.8 91.0 RDW 14.2 14.5 14.6* PLT 338 285 274 BMP: Recent Labs 02/21/23 03202/22/2342702/23/23 013 NA 141 140 140 K 4.5 4.1 4.1 CL 104 104 103 CO2 34* 32* 34* BUN 39* 43* 43* CREATININE 1.12 1.00 0.93 GLUCOSE 134* 137* 150* CALCIUM 8.7 8.8 8.9 ANIONGAP 4 3 3 LIVER PROFILE: Recent Labs 02/21/2331902/22/238 02/23/23 013 AST 57* 51* 51* ALT 65* 61* 65* BILITOT 0.7 0.7 0.8 ALKPHOS 91 93 95 PROT 6.6 6.5 6.4 PT/INR: No results for input(s): PROTIME, INR in the last 72 hours. CARDIAC ENZYMES: No results for input(s): TROPONINI in the last 72 hours. Procalcitonin: No results found for: PROCAL COVID-19 PCR: No results for input(s): COVID19 in the last 72 hours. Objective: Vitals: BP 122/63 (BP Location: Left arm, Patient Position: Lying) Pulse 70 Temp 37.4 C (99.3 F) (Temporal) Resp 16 Ht 5' 5" (1.651 m) Wt 152 lb 12.5 oz (69.3 kg) SpO2 94% BMI 25.42 kg/m Pulse Ox: SpO2 Av.7 % Min: 91 % Max: 94 % Supplemental O2: O2 Flow Rate (L/min): 1 L/min Patient is alert, awake Heart S1 S2 No murmurs Lungs coarse BS b/l Abdomen soft non distended no organomegaly No pedal edema R sided weakness, aphasia Medications: Current Facility-Administered Medications: acetaminophen (Tylenol) tablet 650 mg, 650 mg, Oral, q6h PRN, 650 mg at 02/13/23 2328 OR acetaminophen (Tylenol) suppository 650 mg, 650 mg, Rectal, q6h PRN, Sarah Lehman-Estephanie, SOCCER REFEREE - ETHYLBENZENE CRACKING SUPERVISOR amLODIPine (Norvasc) tablet 10 mg, 10 mg, Oral, Daily, Sarah Lehman-Estephanie, SOCCER REFEREE - ETHYLBENZENE CRACKING SUPERVISOR, 10 mg at 02/23/2332 aspirin chewable tablet 81 mg, 81 mg, Per G Tube, Daily, Wilmer Sheldon DO, 81 mg at 02/23/23931 atorvastatin (Lipitor) tablet 40 mg, 40 mg, Per G Tube, Daily, Sarah Lehman-Estephanie, SOCCER REFEREE - ETHYLBENZENE CRACKING SUPERVISOR, 40 mg at 02/22/232105 bisacodyl (Dulcolax) suppository 10 mg, 10 mg, Rectal, Daily PRN, Sarah Lehman-Estephanie, SOCCER REFEREE - ETHYLBENZENE CRACKING SUPERVISOR bisacodyl (Dulcolax) suppository 10 mg, 10 mg, Rectal, Daily, Sarah Lehman-Estephanie, SOCCER REFEREE - ETHYLBENZENE CRACKING SUPERVISOR, 10 mg at 02/13/23 09 carvedilol (Coreg) tablet 25 mg, 25 mg, Per G Tube, BID WC, Sarah Lehman-Estephanie, SOCCER REFEREE - ETHYLBENZENE CRACKING SUPERVISOR, 25 mg at 02/23/23 0932 heparin injection 5,000 Units, 5,000 Units, SubCUTAneous, 3 times per day, Sarah Lehman-Estephanie, SOCCER REFEREE - ETHYLBENZENE CRACKING SUPERVISOR, 5,000 Units at 02/23/23 0541 hydrALAZINE (Apresoline) injection 20 mg, 20 mg, IntraVENous, q4h PRN, Sarah Lehman-Estephanie, SOCCER REFEREE - ETHYLBENZENE CRACKING SUPERVISOR, 20 mg at 02/16/23 0705 HYDROcodone kirsten-chlorphe kirsten ER (Tussionex Pennkinetic) 10-8 MG/5ML ER suspension 5 mL, 5 mL, Per G Tube, q12h PRN, Wilmer Sheldon DO iopamidol (Isovue-300) 61 % injection 25 mL, 25 mL, Other, Once PRN, Enzo Landa MD ipratropium-albuterol (Duo-Neb) 0.5-2.5 mg/3 mL nebulizer solution 3 mL, 3 mL, Nebulization, TID PRN, Sarah Ricoodin-Estephanie, SOCCER REFEREE - ETHYLBENZENE CRACKING SUPERVISOR, 3 mL at 02/07/232112 labetalol (Normodyne,Trandate) injection 20 mg, 20 mg, IntraVENous, q4h PRN, Sarah Ricoodin-Estephanie, SOCCER REFEREE - ETHYLBENZENE CRACKING SUPERVISOR, 20 mg at 02/11/23 0511 lidocaine (Uro-Jet) 2 % gel, , Topical, Once, Sarah Lehman-Estephanie, SOCCER REFEREE - ETHYLBENZENE CRACKING SUPERVISOR melatonin tablet 5 mg, 5 mg, Oral, Nightly PRN, Sarah Ricoodin-Estephanie, SOCCER REFEREE - ETHYLBENZENE CRACKING SUPERVISOR, 5 mg at 02/21/232106 nystatin (Mycostatin) 272191 UNIT/ML suspension 500,000 Units, 5 mL, Swish & Spit, TID, Sarah Ricoodin-Estephanie, SOCCER REFEREE - ETHYLBENZENE CRACKING SUPERVISOR, 500,000 Units at 02/23/23 0932 ondansetron ODT (Zofran-ODT) disintegrating tablet 4 mg, 4 mg, Oral, q8h PRN OR ondansetron (Zofran) injection 4 mg, 4 mg, IntraVENous, q6h PRN, Sarah Ricoodin-Estephanie, SOCCER REFEREE - ETHYLBENZENE CRACKING SUPERVISOR pantoprazole (ProtoNix) EC tablet 40 mg, 40 mg, Oral, Nightly, 40 mg at 02/22/232105 OR pantoprazole (ProtoNix) injection 40 mg, 40 mg, IntraVENous, Nightly, Sarah Jackyodin-Estephanie, SOCCER REFEREE - ETHYLBENZENE CRACKING SUPERVISOR, 40 mg at 02/21/232106 polyethylene glycol (PEG) 3350 (Miralax) packet 17 g, 17 g, Oral, BID, Sarah Dominik-Estephanie, SOCCER REFEREE - ETHYLBENZENE CRACKING SUPERVISOR, 17 g at 02/22/232104 polyvinyl alcohol (Liquifilm Tears) 1.4 % ophthalmic solution, , Both Eyes, PRN, Sarah Ricoodin-Estephanie, SOCCER REFEREE - ETHYLBENZENE CRACKING SUPERVISOR, Given at 02/13/23 1337 senna-docusate sodium (Senokot-S) 8.6-50 MG tablet 2 tablet, 2 tablet, Oral, BID, Sarah Berrodin-Estephanie, SOCCER REFEREE - ETHYLBENZENE CRACKING SUPERVISOR, 2 tablet at 02/22/23 2106 sodium chloride 0.9 % infusion, 5-250 mL/hr, IntraVENous, PRN, Sarah Berrodin-Estephanie, SOCCER REFEREE - ETHYLBENZENE CRACKING SUPERVISOR, Stopped at 02/16/23 1534 sodium chloride 0.9% (NS) flush 5-40 mL, 5-40 mL, IntraVENous, q12h, Sarah Berrodin-Estephanie, SOCCER REFEREE - ETHYLBENZENE CRACKING SUPERVISOR, 10 mL at 02/22/23 1347 sodium chloride 0.9% (NS) flush 5-40 mL, 5-40 mL, IntraVENous, PRN, Sarah Berrodin-Estephanie, SOCCER REFEREE - ETHYLBENZENE CRACKING SUPERVISOR, 10 mL at 02/21/23 2107 Assessment Data: (CAT1) Reviewed prior external notes from neurologist, ICU, hotel breakfast attendant unique sources (each=1). (LOW: 2x CAT1 or independent historian MOD: 3x CAT1 or 1x CAT3 EXTENSIVE: 3x CAT1 and 1x CAT3) Acute, acute on chronic, unstable/uncontrolled chronic problems/diagnoses: Left MCA Ischemic Stroke with hemorrhagic conversion, likely embolic with cytotoxic edema and brain compression KATELYNN thrombus Hypertension Dysnea- cxr concerning for infiltrate vs edema, wbc wnl, no fevers, chances of inf pretty low, not producing sputum. If develops sob might benefit from lasix. Debility Dysphagia- peg in place Aphasia Malnutrition Tobacco abuse Stable chronic problems affecting care, new non-acute diagnoses: WA s/p CABG CAD Hx of 3rd degree AV block Plan As a result of the above findings & factors, the following mgmt was pursued: - start aspirin on today February 20 that will be switched to oral anticoagulant on March 17, when OAC is started, aspirin should be discontinued Complexity: Acute or chronic illness posing a threat to life (HIGH). Risk: Drug therapy requiring intensive monitoring (HIGH). ASA Advance Directive: Full Code Anticipated Discharge - Location - Acute Rehab, pending acceptance Total time spent (which include face to face and non face to face encounters) : greater than 32 minutes Extended Emergency Contact Information Primary Emergency Contact: Leighann Sanabria Relation: Other Secondary Emergency Contact: LauroEileen Relation: Other Sarah [facility] Travis Division of Hospitalist Medicine Inpatient Medical Services/[facility] [place] Speech-Language Pathology Facility/Department: [address] SPEECH THERAPY TREATMENT NAME: Catina Land : 1955 ADMISSION DATE: 02/05/2023 ADMITTING DIAGNOSIS: has History of coronary artery bypass graft x 2; Hyperlipidemia; Presence of stent in coronary artery; CAD (coronary artery disease); WA, old; Acute ischemic stroke (HCC); Arterial ischemic stroke, MCA (middle cerebral artery), left, acute (HCC); Brain compression (CMS/HCC) (HCC); Cerebral edema (CMS/HCC) (HCC); Troponin level elevated; Cognitive impairment; Debility; and Encounter for assessment of decision-making capacity on their problem list. No Known Allergies Onset Date: 02/05/2023 Pain: RN managing General General Chart Reviewed: Yes S: Patient was upright in bed upon entering room. Patient was alert and cooperative for ST. Noted right side neglect is still present. O: Expressive and receptive language treatment. A: Patient participated in both expressive and receptive language tasks. When asked to imitate vowels (/a/, /oo/, /ee/), patient showed perseveration of /ee/ for all 3/3 vowel productions, noting 1/3 correct. Patient was able to imitate consonant sounds (/m/, /p/, /s/) with 100% accuracy in 3/3 opportunities. Noted cueing of lip movement provided added help for patient. Following one step directions, patient was unable to complete 0/3, with hand over hand cueing 1/3. Continued perseveration of first directive 'make a fist' for all subsequent directives. For object identification, patient was able to identify 2/3. Noted patient was able to sing along with SUPERVISOR DEHYDROGENATION to 'Happy Birthday' song - will continue to utilize this strategy for additional vocalization from patient. Education Education Given: therapy schedule, goals explained, role of therapy, communication Education Given To: Patient RN name: Geeta Education Response: No evidence of learning P: Continue to recommend speech therapy for expressive and receptive language deficits. Will follow with speech language therapy plan of care. Treatment Plan Requires SUPERVISOR DEHYDROGENATION Intervention: Yes Frequency/Duration: 3 days/wk for 2 weeks Treatment/Goals Encounter Problems Encounter Problems (Active) Communication/Dysarthria Patient will follow 1 step commands (Progressing) Start: 02/07/23 Expected End: 03/07/23 Patient will participate in further assessment of speech and language skills (Progressing) Start: 02/07/23 Expected End: 03/07/23 Patient participates in automatic speech tasks (Progressing) Start: 02/07/23 Expected End: 03/07/23 SUPERVISOR DEHYDROGENATION Misc Yes/no questions (Progressing) Start: 02/07/23 Expected End: 03/07/23 Pt will answer simple yes/no questions with 70% accuracy. Therapy Time SUPERVISOR DEHYDROGENATION Individual Minutes Time In: 1005 Time Out: 1015 Minutes: 10 DAYANA Martin student 02/23/2023 10:24 AM Images from the original note were not included. Hospitalist Progress Note 02/22/2023 Subjective: Admit Date: 02/05/2023 PCP: No primary care provider on file. Room#: W3-335/W3-335 A Interval History: Patient transferred out of ICU onto hospitalist service. 67 YO male W/PMH of CAD, WA, (s/p CABG & stenting), and HLD. Patient presented to [facility] ED on 02/05/23 after being found down on floor of bathroom covered in vomit by EMS. Family had called for a well check after being unable to contact the patient. Last known well time was sometime Tuesday02/03/[address] imaging showed L MCA infarct. Out of window for TNK, not amenable to thrombectomy d/t large established core infarct. He was admitted to T2 ICU. Cardiology following d/t NSTEMI med manage with beta courtney & statin. He was briefly on 3% NaCl for cerebral edema & mass effect. Dobhoff in place for nutrition d/t ongoing speech therapy for dysphagia. Later found to have large AA thrombus. Gen surgery consulted for PEG placement. Geriatric consulted for expert eval pertaining to guardianship process and deemed to be incapable of making medical decisions Patient was seen and examined this AM. He wakes up to name, intermittently follow commands. Averbal Diet, tube feeding no tray Nasogastric; Jevity 1.5 Kota; Continuous; Yes; 10; 10; 50; Water; Tap water; 50; Q 4 Hours 24HR INTAKE/OUTPUT: Intake/Output Summary (Last 24 hours) at 02/22/2023 1526 Last data filed at 02/22/2023 0607 Gross per 24 hour Intake 1153 ml Output 300 ml Net 853 ml Past Medical History: Past Medical History: Diagnosis Date CAD (coronary artery disease) History of coronary artery bypass graft x 2 04/2014 Hyperlipidemia WA, old 03/28/2014 STEMI-inferior Pneumonia Presence of stent in coronary artery 03/2014 Third degree AV block (CMS/HCC) (HCC) 03/28/2014 during inferior STEMI LABS: CBC: Recent Labs 02/20/23 0610 02/21/23 0318 02/22/23 0428 WBC 9.5 9.7 8.8 RBC 4.70 4.76 4.61 HGB 14.1 14.2 14.0 HCT 42.7 43.4 41.9 MCV 91.0 91.1 90.8 RDW 14.3 14.2 14.5 PLT 312 338 285 BMP: Recent Labs 02/20/23 0610 02/21/23 0320 02/22/23 0428 NA 143 141 140 K 4.4 4.5 4.1 CL 106 104 104 CO2 31* 34* 32* BUN 39* 39* 43* CREATININE 0.98 1.12 1.00 GLUCOSE 125* 134* 137* CALCIUM 8.8 8.7 8.8 ANIONGAP 6 4 3 LIVER PROFILE: Recent Labs 02/20/23 0610 02/21/23 0320 02/22/23 0428 AST 44 57* 51* ALT 61* 65* 61* BILITOT 0.7 0.7 0.7 ALKPHOS 90 91 93 PROT 6.4 6.6 6.5 PT/INR: No results for input(s): PROTIME, INR in the last 72 hours. CARDIAC ENZYMES: No results for input(s): TROPONINI in the last 72 hours. Procalcitonin: No results found for: PROCAL COVID-19 PCR: No results for input(s): COVID19 in the last 72 hours. Objective: Vitals: BP (!) 141/66 (BP Location: Left arm, Patient Position: Lying) Pulse 68 Temp 36.9 C (98.4 F) (Temporal) Resp 16 Ht 5' 5" (1.651 m) Wt 152 lb 12.5 oz (69.3 kg) SpO2 92% BMI 25.42 kg/m Pulse Ox: SpO2 Av.4 % Min: 90 % Max: 95 % Supplemental O2: O2 Flow Rate (L/min): 1 L/min Patient is alert, awake Heart S1 S2 No murmurs Lungs coarse BS b/l Abdomen soft non distended no organomegaly No pedal edema R sided weakness, aphasia Medications: Current Facility-Administered Medications: acetaminophen (Tylenol) tablet 650 mg, 650 mg, Oral, q6h PRN, 650 mg at 02/13/23 2328 OR acetaminophen (Tylenol) suppository 650 mg, 650 mg, Rectal, q6h PRN, Sarah Ricoodin-Estephanie, SOCCER REFEREE - ETHYLBENZENE CRACKING SUPERVISOR amLODIPine (Norvasc) tablet 10 mg, 10 mg, Oral, Daily, Sarah Ricoodin-Estephanie, SOCCER REFEREE - ETHYLBENZENE CRACKING SUPERVISOR, 10 mg at 02/22/23 09 aspirin chewable tablet 81 mg, 81 mg, Per G Tube, Daily, Wilmer Sheldon, DO, 81 mg at 02/22/23 09 atorvastatin (Lipitor) tablet 40 mg, 40 mg, Per G Tube, Daily, Sarah Ricoodin-Estephanie, SOCCER REFEREE - ETHYLBENZENE CRACKING SUPERVISOR, 40 mg at 02/21/23 2107 bisacodyl (Dulcolax) suppository 10 mg, 10 mg, Rectal, Daily PRN, Sarah Ricoodin-Estephanie, SOCCER REFEREE - ETHYLBENZENE CRACKING SUPERVISOR bisacodyl (Dulcolax) suppository 10 mg, 10 mg, Rectal, Daily, Sarah Lehman-Estephanie, SOCCER REFEREE - ETHYLBENZENE CRACKING SUPERVISOR, 10 mg at 02/13/23 0909 carvedilol (Coreg) tablet 25 mg, 25 mg, Per G Tube, BID WC, Sarah Ricoodin-Estephanie, SOCCER REFEREE - ETHYLBENZENE CRACKING SUPERVISOR, 25 mg at 02/22/23 0921 heparin injection 5,000 Units, 5,000 Units, SubCUTAneous, 3 times per day, Sarah Lehman-Estephanie, SOCCER REFEREE - ETHYLBENZENE CRACKING SUPERVISOR, 5,000 Units at 02/22/23 1347 hydrALAZINE (Apresoline) injection 20 mg, 20 mg, IntraVENous, q4h PRN, Sarah Ricoodin-Estephanie, SOCCER REFEREE - ETHYLBENZENE CRACKING SUPERVISOR, 20 mg at 02/16/23 0705 HYDROcodone kirsten-chlorphe kirsten ER (Tussionex Pennkinetic) 10-8 MG/5ML ER suspension 5 mL, 5 mL, Per G Tube, q12h PRN, Wilmer Sheldon DO iopamidol (Isovue-300) 61 % injection 25 mL, 25 mL, Other, Once PRN, Enzo Landa MD ipratropium-albuterol (Duo-Neb) 0.5-2.5 mg/3 mL nebulizer solution 3 mL, 3 mL, Nebulization, TID PRN, Sarah Lehman-Estephanie, SOCCER REFEREE - ETHYLBENZENE CRACKING SUPERVISOR, 3 mL at 02/07/232112 labetalol (Normodyne,Trandate) injection 20 mg, 20 mg, IntraVENous, q4h PRN, Sarah Lehman-Estephanie, SOCCER REFEREE - ETHYLBENZENE CRACKING SUPERVISOR, 20 mg at 02/11/23 0511 lidocaine (Uro-Jet) 2 % gel, , Topical, Once, Sarah Lehman-Estephanie, SOCCER REFEREE - ETHYLBENZENE CRACKING SUPERVISOR melatonin tablet 5 mg, 5 mg, Oral, Nightly PRN, Sarah Lehman-Estephanie, SOCCER REFEREE - ETHYLBENZENE CRACKING SUPERVISOR, 5 mg at 02/21/232106 nystatin (Mycostatin) 539353 UNIT/ML suspension 500,000 Units, 5 mL, Swish & Spit, TID, Sarah Lehman-Estephanie, SOCCER REFEREE - ETHYLBENZENE CRACKING SUPERVISOR, 500,000 Units at 02/22/23 134 ondansetron ODT (Zofran-ODT) disintegrating tablet 4 mg, 4 mg, Oral, q8h PRN OR ondansetron (Zofran) injection 4 mg, 4 mg, IntraVENous, q6h PRN, Sarah Lehman-Estephanie, SOCCER REFEREE - ETHYLBENZENE CRACKING SUPERVISOR pantoprazole (ProtoNix) EC tablet 40 mg, 40 mg, Oral, Nightly, 40 mg at 02/20/232143 OR pantoprazole (ProtoNix) injection 40 mg, 40 mg, IntraVENous, Nightly, Sarah Ricoodin-Estephanie, SOCCER REFEREE - ETHYLBENZENE CRACKING SUPERVISOR, 40 mg at 02/21/232106 polyethylene glycol (PEG) 3350 (Miralax) packet 17 g, 17 g, Oral, BID, Sarah Berrodin-Estephanie, SOCCER REFEREE - ETHYLBENZENE CRACKING SUPERVISOR, 17 g at 02/17/23 0903 polyvinyl alcohol (Liquifilm Tears) 1.4 % ophthalmic solution, , Both Eyes, PRN, Sarah Berrodin-Estephanie, SOCCER REFEREE - ETHYLBENZENE CRACKING SUPERVISOR, Given at 02/13/23 1337 senna-docusate sodium (Senokot-S) 8.6-50 MG tablet 2 tablet, 2 tablet, Oral, BID, Sarah Berrodin-Estephanie, SOCCER REFEREE - ETHYLBENZENE CRACKING SUPERVISOR, 2 tablet at 02/22/23 0922 sodium chloride 0.9 % infusion, 5-250 mL/hr, IntraVENous, PRN, Sarah Berrodin-Estephanie, SOCCER REFEREE - ETHYLBENZENE CRACKING SUPERVISOR, Stopped at 02/16/23 1534 sodium chloride 0.9% (NS) flush 5-40 mL, 5-40 mL, IntraVENous, q12h, Sarah Berrodin-Estephanie, SOCCER REFEREE - ETHYLBENZENE CRACKING SUPERVISOR, 10 mL at 02/22/23 1347 sodium chloride 0.9% (NS) flush 5-40 mL, 5-40 mL, IntraVENous, PRN, Sarah Berrodin-Estephanie, SOCCER REFEREE - ETHYLBENZENE CRACKING SUPERVISOR, 10 mL at 02/21/232106 Assessment Data: (CAT1) Reviewed prior external notes from neurologist, ICU, hotel breakfast attendant unique sources (each=1). (LOW: 2x CAT1 or independent historian MOD: 3x CAT1 or 1x CAT3 EXTENSIVE: 3x CAT1 and 1x CAT3) Acute, acute on chronic, unstable/uncontrolled chronic problems/diagnoses: Left MCA Ischemic Stroke with hemorrhagic conversion, likely embolic with cytotoxic edema and brain compression KATELYNN thrombus Hypertension Dysnea- cxr concerning for infiltrate vs edema, wbc wnl, no fevers, chances of inf pretty low, not producing sputum. If develops sob might benefit from lasix. Debility Dysphagia- peg in place Aphasia Malnutrition Tobacco abuse Stable chronic problems affecting care, new non-acute diagnoses: [place] s/p CABG CAD Hx of 3rd degree AV block Plan As a result of the above findings & factors, the following mgmt was pursued: - start aspirin on today February 20 that will be switched to oral anticoagulant on March 17, when OAC is started, aspirin should be discontinued Complexity: Acute or chronic illness posing a threat to life (HIGH). Risk: Drug therapy requiring intensive monitoring (HIGH). ASA Advance Directive: Full Code Anticipated Discharge - Location - Acute Rehab, pending acceptance Total time spent (which include face to face and non face to face encounters) : greater than 32 minutes Extended Emergency Contact Information Primary Emergency Contact: Leighann Sanabria Relation: Other Secondary Emergency Contact: Eileen Restrepo Relation: Other Sarah Beth Travis Division of Hospitalist Medicine Inpatient Medical Services/[facility] [place] Geriatric Medicine Inpatient Consult Service Admission Date: 02/05/2023 Assessment Principal Problem: Acute ischemic stroke (HCC) Active Problems: Arterial ischemic stroke, MCA (middle cerebral artery), left, acute (HCC) Brain compression (CMS/HCC) (HCC) Cerebral edema (CMS/HCC) (HCC) Troponin level elevated Cognitive impairment Debility Encounter for assessment of decision-making capacity Plan Cognitive Impairment, Encounter for Decision Making Capacity -secondary to recent stroke. Limited communication abilities due to stroke with aphasia. Continues to be unable to convey an understanding of his medical situation. He does not have capacity to make healthcare decisions or financial decisions at this time -Unclear how well he will recover cognitively from the stroke, if speech will return to baseline - Statement of Expert Evaluation written recommending guardianship. This will be placed on patient's paper chart. - Family needs guardianship to pay his bills. -Unclear if the guardianship will be able to be terminated one day if he recovers enough. -Continue Speech Therapy Debility -secondary to recent stroke. Plan is for inpatient rehab -Physical Therapy and Occupational Therapy OK to discharge to inpatient rehab from geriatric perspective once medically stable. Follow-up: will sign off, please call if questions Subjective Chief Complaint: stroke Geriatrics consulted for expert evaluation, trying to apply for guardianship HPI- The patient is new to me but seen by the Geriatric Inpatient Consult team. 67 y.o. year-old male admitted to acute care from home for suspected stroke. Diagnosed with LMCA stroke. past medical history of cad s/p CABG, hyperlipidemia, third degree AV block who presented to the hospital on 02/05 for altered mental status, right sided hemiplegia. Interval History: Remains on telemetry. 335a No events overnight Sister Leighann at bedside. Catina awakens easily to voice. Continues to be aphasic, may utter some words clearly with much effort but also with garbled speech. Did not speak much during this interaction. He is following commands and seems to be processing incoming information well. Seen by PT. Recommending inpatient rehab. Review of Systems Unable to perform ROS: Patient nonverbal Objective BP (!) 141/66 (BP Location: Left arm, Patient Position: Lying) Pulse 68 Temp 36.9 C (98.4 F) (Temporal) Resp 16 Ht 5' 5" (1.651 m) Wt 152 lb 12.5 oz (69.3 kg) SpO2 92% BMI 25.42 kg/m Intake/Output Summary (Last 24 hours) at 02/22/2023 1511 Last data filed at 02/22/2023 0607 Gross per 24 hour Intake 1153 ml Output 300 ml Net 853 ml Wt Readings from Last 3 Encounters: 02/12/23 152 lb 12.5 oz (69.3 kg) Current Facility-Administered Medications: acetaminophen (Tylenol) tablet 650 mg, 650 mg, Oral, q6h PRN, 650 mg at 02/13/23 2328 OR acetaminophen (Tylenol) suppository 650 mg, 650 mg, Rectal, q6h PRN, Sarah Ricoodin-Estephanie, SOCCER REFEREE - ETHYLBENZENE CRACKING SUPERVISOR amLODIPine (Norvasc) tablet 10 mg, 10 mg, Oral, Daily, Sarah Lehman-Estephanie, SOCCER REFEREE - ETHYLBENZENE CRACKING SUPERVISOR, 10 mg at 02/22/23 09 aspirin chewable tablet 81 mg, 81 mg, Per G Tube, Daily, Wilmer Sheldon, DO, 81 mg at 02/22/23 09 atorvastatin (Lipitor) tablet 40 mg, 40 mg, Per G Tube, Daily, Sarah Lehman-Estephanie, SOCCER REFEREE - ETHYLBENZENE CRACKING SUPERVISOR, 40 mg at 02/21/232106 bisacodyl (Dulcolax) suppository 10 mg, 10 mg, Rectal, Daily PRN, Sarah Lehman-Estephanie, SOCCER REFEREE - ETHYLBENZENE CRACKING SUPERVISOR bisacodyl (Dulcolax) suppository 10 mg, 10 mg, Rectal, Daily, Sarah Ricoodin-Estephanie, SOCCER REFEREE - ETHYLBENZENE CRACKING SUPERVISOR, 10 mg at 02/13/23 0909 carvedilol (Coreg) tablet 25 mg, 25 mg, Per G Tube, BID WC, Sarah Ricoodin-Estephanie, SOCCER REFEREE - ETHYLBENZENE CRACKING SUPERVISOR, 25 mg at 02/22/23 0921 heparin injection 5,000 Units, 5,000 Units, SubCUTAneous, 3 times per day, Sarah Lehman-Estephanie, SOCCER REFEREE - ETHYLBENZENE CRACKING SUPERVISOR, 5,000 Units at 02/22/23 1347 hydrALAZINE (Apresoline) injection 20 mg, 20 mg, IntraVENous, q4h PRN, Sarah Ricoodin-Estephanie, SOCCER REFEREE - ETHYLBENZENE CRACKING SUPERVISOR, 20 mg at 02/16/23 0705 HYDROcodone kirsten-chlorphe kirsten ER (Tussionex Pennkinetic) 10-8 MG/5ML ER suspension 5 mL, 5 mL, Per G Tube, q12h PRN, Wilmer Sheldon DO iopamidol (Isovue-300) 61 % injection 25 mL, 25 mL, Other, Once PRN, Enzo Landa MD ipratropium-albuterol (Duo-Neb) 0.5-2.5 mg/3 mL nebulizer solution 3 mL, 3 mL, Nebulization, TID PRN, Sarah Lehman-Estephanie, SOCCER REFEREE - ETHYLBENZENE CRACKING SUPERVISOR, 3 mL at 02/07/23 211 labetalol (Normodyne,Trandate) injection 20 mg, 20 mg, IntraVENous, q4h PRN, Sarah Lehman-Estephanie, SOCCER REFEREE - ETHYLBENZENE CRACKING SUPERVISOR, 20 mg at 02/11/23 0511 lidocaine (Uro-Jet) 2 % gel, , Topical, Once, Sarah Lehman-Estephanie, SOCCER REFEREE - ETHYLBENZENE CRACKING SUPERVISOR melatonin tablet 5 mg, 5 mg, Oral, Nightly PRN, Sarah Lehman-Estephanie, SOCCER REFEREE - ETHYLBENZENE CRACKING SUPERVISOR, 5 mg at 02/21/23 210 nystatin (Mycostatin) 371715 UNIT/ML suspension 500,000 Units, 5 mL, Swish & Spit, TID, Sarah Lehman-Estephanie, SOCCER REFEREE - ETHYLBENZENE CRACKING SUPERVISOR, 500,000 Units at 02/22/23 1347 ondansetron ODT (Zofran-ODT) disintegrating tablet 4 mg, 4 mg, Oral, q8h PRN OR ondansetron (Zofran) injection 4 mg, 4 mg, IntraVENous, q6h PRN, Sarah Berrodin-Estephanie, SOCCER REFEREE - ETHYLBENZENE CRACKING SUPERVISOR pantoprazole (ProtoNix) EC tablet 40 mg, 40 mg, Oral, Nightly, 40 mg at 02/20/232143 OR pantoprazole (ProtoNix) injection 40 mg, 40 mg, IntraVENous, Nightly, Sarah Berrodin-Estephanie, SOCCER REFEREE - ETHYLBENZENE CRACKING SUPERVISOR, 40 mg at 02/21/232106 polyethylene glycol (PEG) 3350 (Miralax) packet 17 g, 17 g, Oral, BID, Sarah Berrodin-Estpehanie, SOCCER REFEREE - ETHYLBENZENE CRACKING SUPERVISOR, 17 g at 02/17/23 0903 polyvinyl alcohol (Liquifilm Tears) 1.4 % ophthalmic solution, , Both Eyes, PRN, Sarah Berrodin-Estephanie, SOCCER REFEREE - ETHYLBENZENE CRACKING SUPERVISOR, Given at 02/13/23 1337 senna-docusate sodium (Senokot-S) 8.6-50 MG tablet 2 tablet, 2 tablet, Oral, BID, Sarah Berrodin-Estephanie, SOCCER REFEREE - ETHYLBENZENE CRACKING SUPERVISOR, 2 tablet at 02/22/23 0922 sodium chloride 0.9 % infusion, 5-250 mL/hr, IntraVENous, PRN, Sarah Berrodin-Estephanie, SOCCER REFEREE - ETHYLBENZENE CRACKING SUPERVISOR, Stopped at 02/16/23 1534 sodium chloride 0.9% (NS) flush 5-40 mL, 5-40 mL, IntraVENous, q12h, Sarah Berrodin-Estephanie, SOCCER REFEREE - ETHYLBENZENE CRACKING SUPERVISOR, 10 mL at 02/22/23 1347 sodium chloride 0.9% (NS) flush 5-40 mL, 5-40 mL, IntraVENous, PRN, Sarah Berrodin-Estephanie, SOCCER REFEREE - ETHYLBENZENE CRACKING SUPERVISOR, 10 mL at 02/21/232106 Physical Exam Constitutional: No acute distress, well-nourished, well kempt Psych: Mood and affect Flat. Fair eye contact. Cardiovascular: Regular rate and rhythm, no murmur, + BLE edema Pulmonary/Chest: Diminished to auscultation bilaterally, normal respiratory effort, no coughing noted Abdominal: Soft, not distended, no tenderness to palpation, BS present, Neurological: somnolent but wakes to stimuli and interacts appropriately without speaking , attentive, speech is unclear , , follows commands, no tremor and no rigidity Musculoskeletal: Muscle strength with R sided weakness Gait: assessment deferred Skin: warm and dry, no visible rashes or wounds Labs and Imaging: Recent Results (from the past 24 hour(s)) CBC Collection Time: 02/22/23 4:28 AM Result Value Ref Range Auto WBC 8.8 3.6 - 10.7 10*3/uL RBC 4.61 4.40 - 5.90 10*6/uL Hemoglobin 14.0 13.0 - 18.0 g/dL Hematocrit 41.9 40.0 - 52.0 % MCV 90.8 80.0 - 98.0 fL MCH 30.4 26.0 - 34.0 pg MCHC 33.5 32.0 - 36.0 % RDW 14.5 11.5 - 14.5 % Platelets 285 140 - 440 10*3/uL MPV 9.8 7.4 - 12.4 fL Comprehensive metabolic panel Collection Time: 02/22/23 4:28 AM Result Value Ref Range SODIUM 140 135 - 145 mmol/L POTASSIUM 4.1 3.5 - 5.1 mmol/L CHLORIDE 104 98 - 107 mmol/L CARBON DIOXIDE 32 (H) 22 - 30 mmol/L ANION GAP 3 3 - 13 mmol/L UREA NITROGEN 43 (H) 9 - 20 mg/dL CREATININE 1.00 0.66 - 1.25 mg/dL GLUCOSE 137 (H) 70 - 100 mg/dL CALCIUM 8.8 8.4 - 10.4 mg/dL AST (SGOT) 51 (H) 15 - 46 U/L ALT 61 (H) 0 - 49 U/L ALKALINE PHOSPHATASE 93 38 - 126 U/L ALBUMIN 3.3 (L) 3.5 - 5.0 g/dL BILIRUBIN, TOTAL 0.7 0.2 - 1.3 mg/dL TOTAL PROTEIN 6.5 6.3 - 8.2 g/dL eGFR 82.5 >60.0 mL/min/1.73m*2 No results found for: TSH No results found for: [id number] No results found for: VITD25 Reviewed: allergies, previous encounters, social history, imaging, active problem lists, medications, and labs Physical Therapy Facility/Department: [facility]W Physical Therapy Daily Treatment Note NAME: Catina Land : 1955 Date of Service: 02/22/2023 Discharge Recommendations: IP Rehab PT Equipment Recommendations Equipment Needed: No Other: tbd Assessment Requires PT Follow-Up: Yes Assessment: good attention with most all session. patient able to verbalize "yes" and attempt to sing with music playing. respond well to verbal/tactile instructions for corrections. heavy resistance to left shifting, heavy pusher LUE. -sensory response RLE stimulation. poor ability to maintain extended seated posture. good effort with all. improved interaction/responses at end of session. rec focus on seated balance, midline awareness, right hemibody awareness, posture. rec facility based PT Performance Deficits/Impairments: Decreased functional mobility , Decreased strength, Decreased balance, Decreased ADL status, Decreased sensation, Decreased endurance, Decreased vision/visual deficit Patient Diagnosis(es): The primary encounter diagnosis was Acute ischemic stroke (HCC). Diagnoses of Elevated troponin, Abnormal ECG, Cerebral edema (CMS/HCC) (HCC), and Leg edema, right were also pertinent to this visit. 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 has a past surgical history that includes Coronary artery bypass graft (04/2014) and Coronary angioplasty (03/28/2014). Restrictions Restrictions/Precautions Restrictions/Precautions: Fall Risk Required Braces or Orthoses?: (L'nard splint BLE) Position Activity Restriction Other position/activity restrictions: PEG, abdominal binder, pulse ox monitor Subjective General Chart Reviewed: Yes Patient Assessed for Rehabilitation Services: Yes Response To Previous Treatment: Patient unable to report, no changes reported from family or staff Family / Caregiver Present: No Diagnosis: acute ischemic stroke, elevated troponin, abnormal ECG Follows Commands: Within Functional Limits Subjective Subjective: supine, alert but appears drowsy. attentive to questions, does not verbalize, uses LUE thumbs up/down. aphasia expressive ?receptive Patient Stated Goal: Patient was not cognitively aware and was unable to participate in goal setting at this time. Pain Assessment Pain Assessment: (unable to assess; aphasia) Cognition/Orientation Arousal/Alertness: Appropriate responses to stimuli, Inconsistent responses to stimuli Following Commands: Inconsistently follows commands Attention Span: Attends with cues to redirect Safety Judgement: Decreased awareness of need for assistance Insights: Decreased awareness of deficits Initiation: (most all) Sequencing: Requires cues for all Cognition Comment: expressive aphasia. uses LUE thumbs up/down, ?accuracy Orientation Level: Unable to assess (expressive aphasia) Objective Bed mobility Rolling to Left: 2 Person assistance, Moderate assistance (patient able to assist LUE once guided to bedrail) Rolling to Right: Moderate assistance, 2 Person assistance Supine to Sit: Maximum assistance, 2 Person assistance Sit to Supine: Maximum assistance, 2 Person assistance Scooting: Maximal assistance, 2 Person assistance Comment: exit bed right side, several L/R for personal care and repositioning Balance Comments: seated LUE strong pusher. use of foot board for LUE hand held to maintain midline. seated unsupported max assist due to LOB retro and L/R LOB. seated LUE hand held mod assist, patient able to assist with LUE to shift midline. consistent cues thoracic/cervical extension. seated LUE forearm prop with RLE cross over, right lateral trunk stretch, head up, visual attention for posture correction. extended seated activity with focus on posture, midline, visual input Exercises Comments: RLE PROM, LLE P/AAROM. BLE gentle stretch to heel cord, hamstring, hip rotation Plan Times per Week: 3-5 (extend plan by one day) Plan Weeks: 2 Current Treatment Recommendations: Strengthening, ROM, Balance Training, Gait Training, Functional Mobility Training, Transfer Training, Safety Education & Training, Equipment Evaluation, Education, & procurement, Patient/Caregiver Education & Training, Neuromuscular Re-education, ADL/Self-care Training, IADL Training Plan Comment: Re Eval next session Safety Safety Devices Type of Devices: Bed alarm in place, Call light within reach, Left in bed AM-PAC Score AM-PAC Inpatient Mobility Raw Score: 6 Mobility Inpatient [facility] G-Code Modifier: CN Goals Encounter Problems Encounter Problems (Active) Mobility Patient will ambulate 25 feet with CGA and stephanie-walker or pyramid cane in order to improve safety and independence with mobility. (Not Addressed) Start: 02/07/23 Expected End: 02/21/23 Pain - Adult Transfers Patient will perform bed mobility with SBA in order to improve independence and prepare for out of bed mobility. (Progressing) Start: 02/07/23 Expected End: 02/21/23 Patient will complete functional transfer bed to/from chair with SBA in order to prepare for ambulation. (Not Addressed) Start: 02/07/23 Expected End: 02/21/23 Patient will complete sit to stand transfer with SBA in order to improve safety and prepare for out of bed mobility. (Not Addressed) Start: 02/07/23 Expected End: 02/21/23 Education Education Provided: PT Role, Plan of Care, Family Education, General Safety, Transfer Training, Orientation, Pressure Relief Education Provided Comments: communication Education Method: Verbal Education Outcome: Continued education needed Therapy Time Individual Co-treatment Time In 1055 Time Out 1144 Minutes 49 Timed Code Treatment Minutes: ([id number]) Greg Clay PTA Occupational Therapy Facility/Department: [facility] Occupational Therapy Treatment NAME: Catina Land : 1955 Date of Service: 02/22/2023 Discharge Recommendations: IP Rehab Assessment Assessment: Lacks AROM RUE/RLE and appears with significant sensory deficit R hemibody. Decreased R gaze, potential diplopia. Uses LUE to push toward R and avoidant of L weight shift. Will consult with OTR re: adding vision to treatment plan. At this time, needs assist for all functional tasks. Attempts to sing along with music, occasional verbalizations otherwise. Will need intensive rehab level therapies at discharge. Subjective Subjective Subjective: Pt in bed, sleeping but easily awakened. Typically answers via thumbs up/down for yes/no questions but with questionable accuracy. No pain evident this session. Objective Grooming/Oral Hygiene Skilled Clinical Factors: Max assist to comb hair while seated EOB (using L hand). When presented with comb, pt does visually attend to L hemisphere but does not initiate task. Max assist wipe hands. Upper Extremity Bathing Assistance Level: Maximum assistance LE Dressing Assistance Level: Dependent Skilled Clinical Factors: don socks, bed level Toileting Assistance Level: Dependent Skilled Clinical Factors: bed level Standing Balance Comment: EOB sit, note flexed posture and pt pushing with LUE. With LUE placed in lap, pt needs mod assist for balance. Promote L weight shift via L forearm WB, use of footboard for grasp. Worked on upright posture with fair result; pec stretch in sitting to promote upright. Bed mobility Rolling to Left: Moderate assistance, 2 Person assistance Rolling to Right: Moderate assistance, 2 Person assistance Supine to Sit: Maximum assistance, 2 Person assistance Sit to Supine: Maximum assistance, 2 Person assistance Scooting: Maximal assistance, 2 Person assistance (scoot to HOB in supine) Comment: PROM RUE, 5 reps all joints/planes. No AROM noted, also appears with significant sensory deficit (absent?). No response to cold rag placed in R hand. Exercises Other: Pt generally with gaze fixed to L, appears with disconjugate gaze and brief episode of nystagmus L eye. ? diplopia. Plan Plan Comment: Cont OT per POC Safety Type of devices: Left in bed, Call light within reach, Bed alarm in place Attempt education for ROM, balance, ADL. Will need further education. Limited by expressive/receptive aphasia. AM-PAC Score AM-PAC Inpatient Daily Activity Raw Score: 7 ADL Inpatient [facility] G-Code Modifier: CM Goals Encounter Problems Encounter Problems (Active) Balance Patient will maintain dynamic standing balance for 5-10 minutes with supervision in order to demonstrate decreased risk of falling. (Not Addressed) Start: 02/07/23 Expected End: 03/14/23 Bathing Patient will utilize adaptive techniques to bathe body min A. (Slowly Progressing) Start: 02/07/23 Expected End: 03/14/23 Dressing Upper Extremities Patient will complete upper body dressing min A. (Not Addressed) Start: 02/07/23 Expected End: 03/14/23 Dressings Lower Extremities Patient will dress lower body min A. (Slowly Progressing) Start: 02/07/23 Expected End: 03/14/23 [facility] (Progressing) Start: 02/07/23 Expected End: 03/14/23 Patient will tolerate PROM of RUE to decrease risk of contracture formation and help increase AROM. Toileting Patient will complete toileting tasks at standard toilet with min assist. (Slowly Progressing) Start: 02/07/23 Expected End: 03/14/23 Education Education Provided: (vision, ROM, balance) Education Method: Verbal, Demonstration Barriers to Learning: Vision (aphasia (receptive/expressive)) Education Outcome: Unable to verbalize, Unable to demonstrate understanding, Continued education needed Therapy Time Individual Co-treatment Time In 1048 Time Out 1142 Minutes 54 Timed Code Treatment Minutes: (Funct--2; Self--1; Ther Ex--1) [facility] Extend plan of care for today for treatment. Will attempt reevaluation as able tomorrow. Notified KILN WORKER (greg) Physical Therapy Facility/Department: [facility] Physical Therapy Daily Treatment Note NAME: Catina Land : 1955 Date of Service: 02/21/2023 Discharge Recommendations: IP Rehab PT Equipment Recommendations Equipment Needed: No Other: tbd Assessment Requires PT Follow-Up: Yes Assessment: Pt has not been progressing towards any goals and ambulation goal has not been addressed to date. Pt demonstrates R sided weakness, R sided neglect, and balance deficits in sitting and standing. Pt required 2 person Max A for static sitting on recliner chair while working on visual horizontal tracking to midline and across towards R side. Pt required 2-3 person Max A for sit to stand transfer with pt utilizing LUE on railing x3. Pt required assistance and additional cueing for head control, upright posture, and RLE knee blocking to prevent buckling. Pt worked on standing tolerance and weight shifts during transfer training. Pt goal for ambulation was not addressed to date limited by fatigue and R sided weakness. Continue discharge recommendation for IP rehab. PT re eval next session. Pt was left with OT following PT treatment session. Performance Deficits/Impairments: Decreased functional mobility , Decreased strength, Decreased balance, Decreased endurance, Decreased ADL status Treatment Initiated : 2 FA Patient Diagnosis(es): The primary encounter diagnosis was Acute ischemic stroke (HCC). Diagnoses of Elevated troponin, Abnormal ECG, Cerebral edema (CMS/HCC) ([facility]), and Leg edema, right were also pertinent to this visit. 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 has a past surgical history that includes Coronary artery bypass graft (04/2014) and Coronary angioplasty (03/28/2014). Restrictions Restrictions/Precautions Restrictions/Precautions: Fall Risk, Modified Diet (PEG tube for feeding) Required Braces or Orthoses?: Yes (Pt had kaveh boots on BLE prior to and following PT treatment) Lower Extremity Weight Bearing Restrictions Right Lower Extremity Weight Bearing: Weight Bearing As Tolerated Left Lower Extremity Weight Bearing: Weight Bearing As Tolerated Position Activity Restriction Other position/activity restrictions: IV; pulse ox; cath; PEG; edin pad Subjective General Chart Reviewed: Yes Patient Assessed for Rehabilitation Services: Yes Response To Previous Treatment: Patient unable to report, no changes reported from family or staff Family / Caregiver Present: No Diagnosis: acute ischemic stroke, elevated troponin, abnormal ECG Follows Commands: Within Functional Limits Subjective Subjective: Pt lying in recliner chair upon arrival of PT session with his sister present in room. Pt was aphasic but was able to answer yes or no questions and use thumbs up and down. Pt agreed to therapy and was cooperative throughout session. Cognition/Orientation Overall Cognitive Status: Exceptions Arousal/Alertness: Delayed responses to stimuli Following Commands: Follows one step commands with repetition, Follows one step commands with increased time, Inconsistently follows commands Attention Span: Attends with cues to redirect, Difficulty attending to directions, Difficulty dividing attention Problem Solving: Assistance required to correct errors made, Assistance required to identify errors made Initiation: Requires cues for all Sequencing: Requires cues for all Cognition Comment: Pt aphasic, able to use thumbs up and down to answer some questions. Overall Orientation Status: (Pt unable to answer orientation questions at this time. Pt was attentive to his name) Objective Bed mobility Comment: Pt was in recliner chair prior to and following treatment session. Transfers Sit to Stand: Maximum Assistance, 2 Person Assistance Stand to sit: Maximum Assistance, 2 Person Assistance Comment: Sit to stand transfer from recliner chair with use of railing in front of patient x3. Pt required additional cueing for forward trunk lean, weight shifting, and sequencing. Pt required Max 2-3 person assistance. 1 therapist was required for cueing for upright head and other 2 therapists were on either side of pt. Pt required RLE knee blocking to prevent buckling. Pt was able to stand for approx 2 minutes x2 for a total of 4 minutes with Max 2-3 assistance working on weight shifts and using LUE for assistance. Ambulation Ambulation: No Balance Posture: Fair Sitting - Static: Poor, + Sitting - Dynamic: Poor, + Standing - Static: Poor, + Standing - Dynamic: Poor, + Comments: Pt sat at edge of recliner seat for approx 5 minutes with Max 2-3 assistance for static and dynamic seated balance. Pt worked on midline tracking and horizontal tracking to midline and across towards R side. Pt maintained an upright head while sitting for approx less than 2 minutes unsupported; pt required support and additional cueing for head control. SPT supported RUE throughout session for support with sitting and standing balance. Plan Times per Week: 3-5 Plan Weeks: 2 Current Treatment Recommendations: Strengthening, ROM, Balance Training, Gait Training, Functional Mobility Training, Transfer Training, Safety Education & Training, Equipment Evaluation, Education, & procurement, Patient/Caregiver Education & Training, Neuromuscular Re-education, ADL/Self-care Training, IADL Training Plan Comment: Re Eval next session Safety Safety Devices Safety Devices in Place: Yes Type of Devices: Gait belt, Call light within reach, Nurse notified, All fall risk precautions in place, Patient at risk for falls, Left in chair (Pt was left with OT following PT treatment session. Pt required dependent assistance for donning/doffing kaveh splints.) Restraints Restraints Initially in Place: No Outcomes Score AM-PAC Score AM-PAC Inpatient Mobility Raw Score: 7 Mobility Inpatient CMS G-Code Modifier: CM Goals Encounter Problems Encounter Problems (Active) Mobility Patient will ambulate 25 feet with CGA and stephanie-walker or pyramid cane in order to improve safety and independence with mobility. (Not Progressing) Start: 02/07/23 Expected End: 02/21/23 Pain - Adult Transfers Patient will perform bed mobility with SBA in order to improve independence and prepare for out of bed mobility. (Not Addressed) Start: 02/07/23 Expected End: 02/21/23 Patient will complete functional transfer bed to/from chair with SBA in order to prepare for ambulation. (Not Progressing) Start: 02/07/23 Expected End: 02/21/23 Patient will complete sit to stand transfer with SBA in order to improve safety and prepare for out of bed mobility. (Not Progressing) Start: 02/07/23 Expected End: 02/21/23 Education Education Given To: Patient Education Provided: PT Role, Plan of Care, Family Education, General Safety, Transfer Training Education Provided Comments: Pt educated on general safety to call staff for assistance to decrease fall risk. Pt recieved skilled education for transfer training with use of LUE on rails working on weight shifts to increase proprioceptive input to R side. Pt educated on visual tracking to midline and towards R neglectful side. Education Method: Verbal Barriers to Learning: Cognition Education Outcome: Continued education needed, Verbalized understanding Therapy Time Individual Co-treatment Time In 1319 Time Out 1351 Minutes 32 Timed Code Treatment Minutes: 32 Minutes (2 FA) This provider wore mask and gloves throughout entire session with patient. Walter Villasenor, SPT Occupational Therapy Facility/Department: [facility] Occupational Therapy Treatment NAME: Catina Land : 1955 Date of Service: 02/21/2023 Discharge Recommendations: IP Rehab Assessment REQUIRES OT FOLLOW-UP: Yes Performance deficits / Impairments: Decreased functional mobility , Decreased safe awareness, Decreased balance, Decreased coordination, Decreased posture, Decreased cognition, Decreased ADL status, Decreased ROM, Decreased endurance, Decreased strength, Decreased fine motor control Assessment: OT treatment completed. Pt required 2-3 skilled therapists to work on trunk/neck control, block R knee during transfers and provide tactile and verbal cues. Pt aphasic, demonstrated to be motivated, attempting to smile throughout. Pt worked on tracking across midline and attending to R side, demonstrating progression. Pt worked on trunk and neck control to maintain upright standing and seated position. Able to tolerate increased time during standing balance. Worked on weight shifting and weight bearing on affected side when seated and standing. Pt demonstrated heavy lateral leaning towards R side. RUE PROM also completed. Continue to recommend ip rehab. Pt could tolerate intensive rehab. Prognosis: Good Patient Diagnosis(es): The primary encounter diagnosis was Acute ischemic stroke (HCC). Diagnoses of Elevated troponin, Abnormal ECG, Cerebral edema (CMS/HCC) (HCC), and Leg edema, right were also pertinent to this visit. has a past medical history of CAD (coronary artery disease), History of coronary artery bypass graft x 2 (04/2014), Hyperlipidemia, [place], old (03/28/2014), Pneumonia, Presence of stent in coronary artery (03/2014), and Third degree AV block (CMS/HCC) (HCC) (03/28/2014). has a past surgical history that includes Coronary artery bypass graft (04/2014) and Coronary angioplasty (03/28/2014). Restrictions Restrictions/Precautions Restrictions/Precautions: Fall Risk, Modified Diet (PEG tube for feeding) Required Braces or Orthoses?: Yes (kaveh boots on BLE prior to and following treatment) Required Braces or Orthoses Other: Abdominal Binder Position Activity Restriction Other position/activity restrictions: IV; pulse ox; cath; PEG; edin pad Vision/Hearing Vision: (Pt initially unable to track across midline and attend to R side. Tracking exercises (w/ bright pen) ~6x and constant verbal and visual cues provided. Pt inconsistently crossing midline.) Subjective General Patient Assessed for Rehabilitation Services: Yes Subjective Subjective: Pt up in chair, agreeable to OT - thumbs up. No facial grimaces noted throughout. Patient Stated Goal: Sister wants pt to go to rehab. Pt unable to verbally state. Objective Grooming/Oral Hygiene Assistance Level: Dependent (Worked on [id number] using RUE) Balance Standing Balance: Maximum assistance (Assist 2-3 people. Pt required skilled therapists to block RLE, stabilize RUE and for head/neck control) Standing Balance Time: ~1min x 2 Activity: Weight shifting Comment: Pt worked on bilateral weight shifting, bearing weight on affected side (R) requiring R knee blocking; head/neck support to maintain upright posture. Pt worked on weight bearing with RUE on hand rail while standing. Verbal and visual cues were used for pt to maintain upright position. Transfers Sit to stand: Maximum assistance, 2 Person assistance (Completed 2x.) Stand to sit: Maximum assistance, 2 Person assistance (Completed 2x.) Transfer Comments: Pt required 2 skilled therapist to work on appropriate positioning, trunk/neck control, R knee blocking and verbal/tactile cues. Neuromuscular Education Neuromuscular Education: Yes NDT Treatment: Sitting, Standing, Upper extremity, Lower extremity Head/Neck Control: While standing, pt required maxA to modA for neck control. Therapist placed post-it note on wall, cueing and assisting pt to maintain neck in neutral position. Trunk Control: Worked on trunk control seated in chair - lateral weight shifting, leaning forward, using BUE for stabilization (RUE required [id number]). Type of ROM/Therapeutic Exercise: PROM Comment: RUE elbow extension/flexion, shoulder flexion/abduction, finger flex/extension. ~10 reps of each exercise. Exercises Other: PROM completed while working on attending to R side, pt worked on finding RUE and pointing with LUE. Plan Times per Week: 5-7 Plan Weeks: 4 weeks Current Treatment Recommendations: Strengthening, Pain Management, Positioning, Safety Education & Training, Gait Training, Balance Training, ROM, Patient/Caregiver Education & Training, Self-Care / ADL, Home Management Training, Equipment Evaluation, Education, & procurement, Functional Mobility Training, Endurance Training Safety Safety Devices in place: Yes Type of devices: Nurse notified, Call light within reach, Patient at risk for falls, Gait belt, Chair alarm in place, Left in chair Restraints Initially in place: No AM-PAC Score AM-PAC Inpatient Daily Activity Raw Score: 8 ADL Inpatient [facility] G-Code Modifier: CM Goals Encounter Problems Encounter Problems (Active) Balance Patient will maintain dynamic standing balance for 5-10 minutes with supervision in order to demonstrate decreased risk of falling. (Progressing) Start: 02/07/23 Expected End: 03/14/23 Bathing Patient will utilize adaptive techniques to bathe body min A. (Not Addressed) Start: 02/07/23 Expected End: 03/14/23 Dressing Upper Extremities Patient will complete upper body dressing min A. (Not Addressed) Start: 02/07/23 Expected End: 03/14/23 Dressings Lower Extremities Patient will dress lower body min A. (Not Addressed) Start: 02/07/23 Expected End: 03/14/23 [facility] (Progressing) Start: 02/07/23 Expected End: 03/14/23 Patient will tolerate PROM of RUE to decrease risk of contracture formation and help increase AROM. Toileting Patient will complete toileting tasks at standard toilet with min assist. (Slowly Progressing) Start: 02/07/23 Expected End: 03/14/23 Education Education Given To: Patient, Family Education Provided: OT Role, Plan of Care Education Method: Verbal Barriers to Learning: Cognition Education Outcome: Continued education needed, Unable to verbalize Therapy Time Individual Co-treatment Time In 1319 Time Out 1403 Minutes 44 Timed Code Treatment Minutes: (3- neuro) Tanya Sullivan, S/OT Images from the original note were not included. Hospitalist Progress Note 02/21/2023 Subjective: Admit Date: 02/05/2023 PCP: No primary care provider on file. Room#: W3-335/W3-335 A Interval History: Patient transferred out of ICU onto hospitalist service. 67 YO male W/PMH of CAD, [place], (s/p CABG & stenting), and HLD. Patient presented to [facility] ED on 02/05/23 after being found down on floor of bathroom covered in vomit by EMS. Family had called for a well check after being unable to contact the patient. Last known well time was sometime Tuesday02/03/[address] imaging showed L MCA infarct. Out of window for TNK, not amenable to thrombectomy d/t large established core infarct. He was admitted to T2 ICU. Cardiology following d/t NSTEMI med manage with beta courtney & statin. He was briefly on 3% NaCl for cerebral edema & mass effect. Dobhoff in place for nutrition d/t ongoing speech therapy for dysphagia. Later found to have large AA thrombus. Gen surgery consulted for PEG placement. Geriatric consulted for expert eval pertaining to guardianship process and deemed to be incapable of making medical decisions Sister at bedside, pt follows simple commands, like 'show me 2 fingers' but unable to follow through multiple step commands. Verbal responses per family and nursing inconsequential Diet, tube feeding no tray Nasogastric; Jevity 1.5 [place]; Continuous; Yes; 10; 10; 50; Water; Tap water; 50; Q 4 Hours 24HR INTAKE/OUTPUT: Intake/Output Summary (Last 24 hours) at 02/21/2023 1450 Last data filed at 02/20/2023 1800 Gross per 24 hour Intake 775 ml Output 1000 ml Net -225 ml Past Medical History: Past Medical History: Diagnosis Date CAD (coronary artery disease) History of coronary artery bypass graft x 2 04/2014 Hyperlipidemia [place], old 03/28/2014 STEMI-inferior Pneumonia Presence of stent in coronary artery 03/2014 Third degree AV block (CMS/HCC) (HCC) 03/28/2014 during inferior STEMI LABS: CBC: Recent Labs 02/19/2345202/20/23 0610 02/21/23 0318 WBC 8.9 9.5 9.7 RBC 4.66 4.70 4.76 HGB 13.9 14.1 14.2 HCT 42.0 42.7 43.4 MCV 90.3 91.0 91.1 RDW 14.2 14.3 14.2 PLT 319 312 338 BMP: Recent Labs 02/19/2345202/20/23 0610 02/21/23 0320 NA 144 143 141 K 3.9 4.4 4.5 CL 107 106 104 CO2 31* 31* 34* BUN 42* 39* 39* CREATININE 0.94 0.98 1.12 GLUCOSE 107* 125* 134* CALCIUM 8.5 8.8 8.7 ANIONGAP 5 6 4 LIVER PROFILE: Recent Labs 02/19/2345202/20/23 0610 02/21/23 0320 AST 45 44 57* ALT 61* 61* 65* BILITOT 0.6 0.7 0.7 ALKPHOS 92 90 91 PROT 6.1* 6.4 6.6 PT/INR: No results for input(s): PROTIME, INR in the last 72 hours. CARDIAC ENZYMES: No results for input(s): TROPONINI in the last 72 hours. Procalcitonin: No results found for: PROCAL COVID-19 PCR: No results for input(s): COVID19 in the last 72 hours. Objective: Vitals: BP 127/68 (BP Location: Left arm, Patient Position: Lying) Pulse 73 Temp 37.7 C (99.8 F) (Temporal) Resp 20 Ht 5' 5" (1.651 m) Wt 152 lb 12.5 oz (69.3 kg) SpO2 94% BMI 25.42 kg/m Pulse Ox: SpO2 Av.6 % Min: 94 % Max: 96 % Supplemental O2: O2 Flow Rate (L/min): 2 L/min Patient is alert, awake Heart S1 S2 No murmurs Lungs coarse BS b/l Abdomen soft non distended no organomegaly No pedal edema R sided weakness, aphasia Medications: Current Facility-Administered Medications: acetaminophen (Tylenol) tablet 650 mg, 650 mg, Oral, q6h PRN, 650 mg at 02/13/23 2328 OR acetaminophen (Tylenol) suppository 650 mg, 650 mg, Rectal, q6h PRN, Sarah Lehman-Estephanie, SOCCER REFEREE - ETHYLBENZENE CRACKING SUPERVISOR amLODIPine (Norvasc) tablet 10 mg, 10 mg, Oral, Daily, Sarah Lehman-Estephanie, SOCCER REFEREE - ETHYLBENZENE CRACKING SUPERVISOR, 10 mg at 02/21/23 0934 aspirin chewable tablet 81 mg, 81 mg, Per G Tube, Daily, Wilmer Sheldon, DO, 81 mg at 02/21/23 0935 atorvastatin (Lipitor) tablet 40 mg, 40 mg, Per G Tube, Daily, Sarah Lehman-Estephanie, SOCCER REFEREE - ETHYLBENZENE CRACKING SUPERVISOR, 40 mg at 02/20/23 2144 bisacodyl (Dulcolax) suppository 10 mg, 10 mg, Rectal, Daily PRN, Sarah eLhman-Estephanie, SOCCER REFEREE - ETHYLBENZENE CRACKING SUPERVISOR bisacodyl (Dulcolax) suppository 10 mg, 10 mg, Rectal, Daily, Sarah Lehman-Estephanie, SOCCER REFEREE - ETHYLBENZENE CRACKING SUPERVISOR, 10 mg at 02/13/23 0909 carvedilol (Coreg) tablet 25 mg, 25 mg, Per G Tube, BID WC, Sarah Lehman-Estephanie, SOCCER REFEREE - ETHYLBENZENE CRACKING SUPERVISOR, 25 mg at 02/21/23 0935 heparin injection 5,000 Units, 5,000 Units, SubCUTAneous, 3 times per day, Sarah Lehman-Estephanie, SOCCER REFEREE - ETHYLBENZENE CRACKING SUPERVISOR, 5,000 Units at 02/21/23 1300 hydrALAZINE (Apresoline) injection 20 mg, 20 mg, IntraVENous, q4h PRN, Sarah Lehman-Estephanie, SOCCER REFEREE - ETHYLBENZENE CRACKING SUPERVISOR, 20 mg at 02/16/23 0705 HYDROcodone kirsten-chlorphe kirsten ER (Tussionex Pennkinetic) 10-8 MG/5ML ER suspension 5 mL, 5 mL, Per G Tube, q12h PRN, Wilmer Sheldon DO iopamidol (Isovue-300) 61 % injection 25 mL, 25 mL, Other, Once PRN, Enzo Landa MD ipratropium-albuterol (Duo-Neb) 0.5-2.5 mg/3 mL nebulizer solution 3 mL, 3 mL, Nebulization, TID PRN, Sarah Lehman-Estephanie, SOCCER REFEREE - ETHYLBENZENE CRACKING SUPERVISOR, 3 mL at 02/07/232112 labetalol (Normodyne,Trandate) injection 20 mg, 20 mg, IntraVENous, q4h PRN, Sarah Ricoodin-Estephanie, SOCCER REFEREE - ETHYLBENZENE CRACKING SUPERVISOR, 20 mg at 02/11/23 0511 lidocaine (Uro-Jet) 2 % gel, , Topical, Once, Sarah Lehman-Estephanie, SOCCER REFEREE - ETHYLBENZENE CRACKING SUPERVISOR melatonin tablet 5 mg, 5 mg, Oral, Nightly PRN, Sarah Ricoodin-Estephanie, SOCCER REFEREE - ETHYLBENZENE CRACKING SUPERVISOR, 5 mg at 02/14/232108 nystatin (Mycostatin) [id number] UNIT/ML suspension 500,000 Units, 5 mL, Swish & Spit, TID, Sarah Ricoodin-Estephanie, SOCCER REFEREE - ETHYLBENZENE CRACKING SUPERVISOR, 500,000 Units at 02/21/23 1300 ondansetron ODT (Zofran-ODT) disintegrating tablet 4 mg, 4 mg, Oral, q8h PRN OR ondansetron (Zofran) injection 4 mg, 4 mg, IntraVENous, q6h PRN, Sarah Lehman-Estephanie, SOCCER REFEREE - ETHYLBENZENE CRACKING SUPERVISOR pantoprazole (ProtoNix) EC tablet 40 mg, 40 mg, Oral, Nightly, 40 mg at 02/20/23 2144 OR pantoprazole (ProtoNix) injection 40 mg, 40 mg, IntraVENous, Nightly, Sarah Ricoodin-Estephanie, SOCCER REFEREE - ETHYLBENZENE CRACKING SUPERVISOR, 40 mg at 02/19/23 221 polyethylene glycol (PEG) 3350 (Miralax) packet 17 g, 17 g, Oral, BID, Sarah Ricoodin-Estephanie, SOCCER REFEREE - ETHYLBENZENE CRACKING SUPERVISOR, 17 g at 02/17/23 0903 polyvinyl alcohol (Liquifilm Tears) 1.4 % ophthalmic solution, , Both Eyes, PRN, Sarah Lehman-Estephanie, SOCCER REFEREE - ETHYLBENZENE CRACKING SUPERVISOR, Given at 02/13/23 1337 senna-docusate sodium (Senokot-S) 8.6-50 MG tablet 2 tablet, 2 tablet, Oral, BID, Sarah Berrodin-Estephanie, SOCCER REFEREE - ETHYLBENZENE CRACKING SUPERVISOR, 2 tablet at 02/17/23 0903 sodium chloride 0.9 % infusion, 5-250 mL/hr, IntraVENous, PRN, Sarah Berrodin-Estephanie, SOCCER REFEREE - ETHYLBENZENE CRACKING SUPERVISOR, Stopped at 02/16/23 1534 sodium chloride 0.9% (NS) flush 5-40 mL, 5-40 mL, IntraVENous, q12h, Sarah Berrodin-Estephanie, SOCCER REFEREE - ETHYLBENZENE CRACKING SUPERVISOR, 10 mL at 02/19/23 1134 sodium chloride 0.9% (NS) flush 5-40 mL, 5-40 mL, IntraVENous, PRN, Sarah Berrodin-Estephanie, SOCCER REFEREE - ETHYLBENZENE CRACKING SUPERVISOR Assessment Data: (CAT1) Reviewed prior external notes from neurologist, ICU, hotel breakfast attendant unique sources (each=1). (LOW: 2x CAT1 or independent historian MOD: 3x CAT1 or 1x CAT3 EXTENSIVE: 3x CAT1 and 1x CAT3) Acute, acute on chronic, unstable/uncontrolled chronic problems/diagnoses: Left MCA Ischemic Stroke likely embolic with cytotoxic edema and brain compression KATELYNN thrombus Hypertension Dysnea- cxr concerning for infiltrate vs edema, wbc wnl, no fevers, chances of inf pretty low, not producing sputum. If develops sob might benefit from lasix. Debility Dysphagia- peg in place Aphasia Malnutrition Tobacco abuse Stable chronic problems affecting care, new non-acute diagnoses: [place] s/p CABG CAD Hx of 3rd degree AV block Plan As a result of the above findings & factors, the following mgmt was pursued: - start aspirin on today February 20 that will be switched to oral anticoagulant on March 17, when OAC is started, aspirin should be discontinued Complexity: Acute or chronic illness posing a threat to life (HIGH). Risk: Drug therapy requiring intensive monitoring (HIGH). ASA Advance Directive: Full Code Anticipated Discharge - Location - Acute Rehab Total time spent (which include face to face and non face to face encounters) : greater than 32 minutes Extended Emergency Contact Information Primary Emergency Contact: Leighann Sanabria Relation: Other Secondary Emergency Contact: Eileen Restrepo Relation: Other Sherrill Mae MD Division of Hospitalist Medicine Inpatient Medical Services/[facility] [place] Speech-Language Pathology Facility/Department: [address] SPEECH THERAPY TREATMENT 2-Week Re-evaluation NAME: Catina Land : 1955 ADMISSION DATE: 02/05/2023 ADMITTING DIAGNOSIS: has History of coronary artery bypass graft x 2; Hyperlipidemia; Presence of stent in coronary artery; CAD (coronary artery disease); WA, old; Acute ischemic stroke (HCC); Arterial ischemic stroke, MCA (middle cerebral artery), left, acute (HCC); Brain compression (CMS/HCC) (HCC); Cerebral edema (CMS/HCC) (HCC); Troponin level elevated; Cognitive impairment; Debility; and Encounter for assessment of decision-making capacity on their problem list. No Known Allergies Onset Date: 02/05/2023 Pain: RN managing S: Patient was alert and cooperative. Thrush noted (RN aware). Right neglect persists. O: 2-week re-evaluation of speech and language skills A: Patient with minimal progress since his initial evaluation. Patient answers "yes" to all simple yes/no questions. When prompted, patient attempts to use thumbs up/down but with poor accuracy. Following 1-step directions = 0% independently but patient does attempt to imitate some simple commands. Counting 1-5 = 20% with modeling and max cueing. Patient perseverates on "three". Patient is able to imitate 2/3 vowels with practice, but 0/2 consonants. Severe receptive and expressive aphasia. 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 Education Education Given: communication, role of therapy Education Given To: Patient, RN RN name: Eileen Education Response: No evidence of learning P: Will continue the speech/language therapy plan of care for another 2 weeks if patient remains hospitalized. Treatment Plan Requires SUPERVISOR DEHYDROGENATION Intervention: Yes Frequency/Duration: 3 days/wk for 2 weeks Treatment/Goals Encounter Problems Communication/Dysarthria Patient will follow 1 step commands (Not Progressing) Start: 02/07/23 Expected End: 02/21/23 Patient will participate in further assessment of speech and language skills (Progressing) Start: 02/07/23 Expected End: 02/21/23 Patient participates in automatic speech tasks (Progressing) Start: 02/07/23 Expected End: 02/21/23 SUPERVISOR DEHYDROGENATION Misc Yes/no questions (Progressing) Start: 02/07/23 Expected End: 02/21/23 Pt will answer simple yes/no questions with 70% accuracy. Therapy Time SUPERVISOR DEHYDROGENATION Individual Minutes Time In: 1420 Time Out: 1435 Minutes: 15 Catrachita Mcintyre MA, CCC/SUPERVISOR DEHYDROGENATION 02/21/2023 3:04 PM Images from the original note were not included. Hospitalist Progress Note 02/20/2023 Subjective: Admit Date: 02/05/2023 PCP: No primary care provider on file. Room#: [facility] Interval History: Patient transferred out of ICU onto hospitalist service. 67 YO male W/PMH of CAD, [place], (s/p CABG & stenting), and HLD. Patient presented to [facility] ED on 02/05/23 after being found down on floor of bathroom covered in vomit by EMS. Family had called for a well check after being unable to contact the patient. Last known well time was sometime Tuesday02/03/[address] imaging showed L MCA infarct. Out of window for TNK, not amenable to thrombectomy d/t large established core infarct. He was admitted to T2 ICU. Cardiology following d/t NSTEMI med manage with beta courtney & statin. He was briefly on 3% NaCl for cerebral edema & mass effect. Dobhoff in place for nutrition d/t ongoing speech therapy for dysphagia. Later found to have large AA thrombus. Gen surgery consulted for PEG placement. Geriatric consulted for expert eval pertaining to guardianship process. No overnight issues/complaints. Diet, tube feeding no tray Nasogastric; Jevity 1.5 Kota; Continuous; Yes; 10; 10; 50; Water; Tap water; 50; Q 4 Hours 24HR INTAKE/OUTPUT: Intake/Output Summary (Last 24 hours) at 02/20/2023 1134 Last data filed at 02/19/2023 1605 Gross per 24 hour Intake 671 ml Output 1050 ml Net -379 ml Past Medical History: Past Medical History: Diagnosis Date CAD (coronary artery disease) History of coronary artery bypass graft x 2 04/2014 Hyperlipidemia WA, old 03/28/2014 STEMI-inferior Pneumonia Presence of stent in coronary artery 03/2014 Third degree AV block (CMS/HCC) (HCC) 03/28/2014 during inferior STEMI LABS: CBC: Recent Labs 02/18/2334102/19/2345202/20/23 0610 WBC 10.5 8.9 9.5 RBC 4.79 4.66 4.70 HGB 14.7 13.9 14.1 HCT 43.1 42.0 42.7 MCV 89.9 90.3 91.0 RDW 13.9 14.2 14.3 PLT 306 319 312 BMP: Recent Labs 02/18/2334102/19/2345202/20/23 0610 NA 144 144 143 K 3.6 3.9 4.4 CL 108* 107 106 CO2 29 31* 31* BUN 44* 42* 39* CREATININE 0.97 0.94 0.98 GLUCOSE 114* 107* 125* CALCIUM 8.5 8.5 8.8 ANIONGAP 7 5 6 LIVER PROFILE: Recent Labs 02/18/2334102/19/2345202/20/23 0610 AST 44 45 44 ALT 71* 61* 61* BILITOT 0.8 0.6 0.7 ALKPHOS 89 92 90 PROT 6.5 6.1* 6.4 PT/INR: No results for input(s): PROTIME, INR in the last 72 hours. CARDIAC ENZYMES: No results for input(s): TROPONINI in the last 72 hours. Procalcitonin: No results found for: PROCAL COVID-19 PCR: No results for input(s): COVID19 in the last 72 hours. Objective: Vitals: BP 121/64 (BP Location: Right arm, Patient Position: Lying) Pulse 72 Temp 36.3 C (97.3 F) (Temporal) Resp 17 Ht 5' 5" (1.651 m) Wt 152 lb 12.5 oz (69.3 kg) SpO2 96% BMI 25.42 kg/m Pulse Ox: SpO2 Av.5 % Min: 95 % Max: 96 % Supplemental O2: O2 Flow Rate (L/min): 2 L/min Physical Exam Cardiovascular: Rate and Rhythm: Normal rate and regular rhythm. Pulses: Normal pulses. Heart sounds: Normal heart sounds. Pulmonary: Effort: Pulmonary effort is normal. Breath sounds: Normal breath sounds. Abdominal: Tenderness: There is no abdominal tenderness. Comments: +PEG tube Neurological: Motor: Weakness present. Comments: Right hemiparesis,Right facial Droop, +aphasia Medications: Current Facility-Administered Medications: acetaminophen (Tylenol) tablet 650 mg, 650 mg, Oral, q6h PRN, 650 mg at 02/13/23 2328 OR acetaminophen (Tylenol) suppository 650 mg, 650 mg, Rectal, q6h PRN, Sarah Ricoodin-Estephanie, SOCCER REFEREE - ETHYLBENZENE CRACKING SUPERVISOR amLODIPine (Norvasc) tablet 10 mg, 10 mg, Oral, Daily, Sarah Ricoodin-Estephanie, SOCCER REFEREE - ETHYLBENZENE CRACKING SUPERVISOR, 10 mg at 02/20/23 0925 [Held by provider] aspirin chewable tablet 81 mg, 81 mg, Per G Tube, Daily, Sarah Ricoodin-Estephanie, SOCCER REFEREE - ETHYLBENZENE CRACKING SUPERVISOR, 81 mg at 02/12/23 0845 atorvastatin (Lipitor) tablet 40 mg, 40 mg, Per G Tube, Daily, Sarah Jackyodin-Estephanie, SOCCER REFEREE - ETHYLBENZENE CRACKING SUPERVISOR, 40 mg at 02/19/23 215 bisacodyl (Dulcolax) suppository 10 mg, 10 mg, Rectal, Daily PRN, Sarah Ricoodin-Estephanie, SOCCER REFEREE - ETHYLBENZENE CRACKING SUPERVISOR bisacodyl (Dulcolax) suppository 10 mg, 10 mg, Rectal, Daily, Sarah Ricoodin-Estephanie, SOCCER REFEREE - ETHYLBENZENE CRACKING SUPERVISOR, 10 mg at 02/13/23 0909 carvedilol (Coreg) tablet 25 mg, 25 mg, Per G Tube, BID WC, Sarah Ricoodin-Estephanie, SOCCER REFEREE - ETHYLBENZENE CRACKING SUPERVISOR, 25 mg at 02/20/23 0925 heparin injection 5,000 Units, 5,000 Units, SubCUTAneous, 3 times per day, Sarah Ricoodin-Estephanie, SOCCER REFEREE - ETHYLBENZENE CRACKING SUPERVISOR, 5,000 Units at 02/20/23 0602 hydrALAZINE (Apresoline) injection 20 mg, 20 mg, IntraVENous, q4h PRN, Sarah Ricoodin-Estephanie, SOCCER REFEREE - ETHYLBENZENE CRACKING SUPERVISOR, 20 mg at 02/16/23 0705 iopamidol (Isovue-300) 61 % injection 25 mL, 25 mL, Other, Once PRN, Enzo Landa MD ipratropium-albuterol (Duo-Neb) 0.5-2.5 mg/3 mL nebulizer solution 3 mL, 3 mL, Nebulization, TID PRN, Sarah Ricoodin-Estephanie, SOCCER REFEREE - ETHYLBENZENE CRACKING SUPERVISOR, 3 mL at 02/07/23 211 labetalol (Normodyne,Trandate) injection 20 mg, 20 mg, IntraVENous, q4h PRN, Sarah Jackyodin-Estephanie, SOCCER REFEREE - ETHYLBENZENE CRACKING SUPERVISOR, 20 mg at 02/11/23 0511 lidocaine (Uro-Jet) 2 % gel, , Topical, Once, Sarah Lehman-Estephanie, SOCCER REFEREE - ETHYLBENZENE CRACKING SUPERVISOR melatonin tablet 5 mg, 5 mg, Oral, Nightly PRN, Sarah Ricoodin-Estephanie, SOCCER REFEREE - ETHYLBENZENE CRACKING SUPERVISOR, 5 mg at 02/14/232108 nystatin (Mycostatin) [id number] UNIT/ML suspension 500,000 Units, 5 mL, Swish & Spit, TID, Sarah Jackyodin-Estephanie, SOCCER REFEREE - ETHYLBENZENE CRACKING SUPERVISOR, 500,000 Units at 02/20/23 0925 ondansetron ODT (Zofran-ODT) disintegrating tablet 4 mg, 4 mg, Oral, q8h PRN OR ondansetron (Zofran) injection 4 mg, 4 mg, IntraVENous, q6h PRN, Sarah Ricoodin-Estephanie, SOCCER REFEREE - ETHYLBENZENE CRACKING SUPERVISOR pantoprazole (ProtoNix) EC tablet 40 mg, 40 mg, Oral, Nightly, 40 mg at 02/18/23 2135 OR pantoprazole (ProtoNix) injection 40 mg, 40 mg, IntraVENous, Nightly, Sarah Ricoodin-Estephanie, SOCCER REFEREE - ETHYLBENZENE CRACKING SUPERVISOR, 40 mg at 02/19/23 2211 polyethylene glycol (PEG) 3350 (Miralax) packet 17 g, 17 g, Oral, BID, Sarah Lehman-Estephanie, SOCCER REFEREE - ETHYLBENZENE CRACKING SUPERVISOR, 17 g at 02/17/23 0903 polyvinyl alcohol (Liquifilm Tears) 1.4 % ophthalmic solution, , Both Eyes, PRN, Sarah Lehman-Estephanie, SOCCER REFEREE - ETHYLBENZENE CRACKING SUPERVISOR, Given at 02/13/23 1337 senna-docusate sodium (Senokot-S) 8.6-50 MG tablet 2 tablet, 2 tablet, Oral, BID, Sarah Berrodin-Estephanie, SOCCER REFEREE - ETHYLBENZENE CRACKING SUPERVISOR, 2 tablet at 02/17/23 0903 sodium chloride 0.9 % infusion, 5-250 mL/hr, IntraVENous, PRN, Sarah Berrodin-Estephanie, SOCCER REFEREE - ETHYLBENZENE CRACKING SUPERVISOR, Stopped at 02/16/23 1534 sodium chloride 0.9% (NS) flush 5-40 mL, 5-40 mL, IntraVENous, q12h, Sarah Berrodin-Estephanie, SOCCER REFEREE - ETHYLBENZENE CRACKING SUPERVISOR, 10 mL at 02/19/23 1134 sodium chloride 0.9% (NS) flush 5-40 mL, 5-40 mL, IntraVENous, PRN, Sarah Berrodin-Estephanie, SOCCER REFEREE - ETHYLBENZENE CRACKING SUPERVISOR Assessment Data: (CAT1) Reviewed prior external notes from neurologist, ICU, hotel breakfast attendant unique sources (each=1). (LOW: 2x CAT1 or independent historian MOD: 3x CAT1 or 1x CAT3 EXTENSIVE: 3x CAT1 and 1x CAT3) Acute, acute on chronic, unstable/uncontrolled chronic problems/diagnoses: Left MCA Ischemic Stroke likely embolic with cytotoxic edema and brain compression KATELYNN thrombus Hypertension HLD Debility Dysphagia Aphasia Malnutrition Tobacco abuse Stable chronic problems affecting care, new non-acute diagnoses: [place] s/p CABG CAD Hx of 3rd degree AV block Plan As a result of the above findings & factors, the following mgmt was pursued: - start aspirin on today February 20 that will be switched to oral anticoagulant on March 17, when OAC is started, aspirin should be discontinued - SBP goal <160 - Tfs, ST - needs rehab - geriatrics following, recs noted and appreciated - am labs, replace lytes prn - PT/OT/CM/SW - delirium precautions: increase activity - DVT prophylaxis: heparin and encourage ambulation Complexity: Acute or chronic illness posing a threat to life (HIGH). Risk: Drug therapy requiring intensive monitoring (HIGH). ASA Advance Directive: Full Code Anticipated Discharge - Date - 02/21/23? - Location - Acute Rehab - Pending the following - facility choice, insurance auth, otherwise patient is medically stable for discharge today Total time spent (which include face to face and non face to face encounters) : greater than 55 minutes Extended Emergency Contact Information Primary Emergency Contact: Leighann Sanabria Relation: Other Secondary Emergency Contact: Eileen Restrepo Relation: Other Wilmer Sheldon DO Division of Hospitalist Medicine Inpatient Medical Services/[facility] [place] Images from the original note were not included. Hospitalist Progress Note 02/19/2023 Subjective: Admit Date: 02/05/2023 PCP: No primary care provider on file. Room#: W3-335/W3-335 A Interval History: Patient transferred out of ICU onto hospitalist service. 67 YO male W/PMH of CAD, [place], (s/p CABG & stenting), and HLD. Patient presented to [facility] ED on 02/05/23 after being found down on floor of bathroom covered in vomit by EMS. Family had called for a well check after being unable to contact the patient. Last known well time was sometime Tuesday02/03/[address] imaging showed L MCA infarct. Out of window for TNK, not amenable to thrombectomy d/t large established core infarct. He was admitted to T2 ICU. Cardiology following d/t NSTEMI med manage with beta courtney & statin. He was briefly on 3% NaCl for cerebral edema & mass effect. Dobhoff in place for nutrition d/t ongoing speech therapy for dysphagia. Later found to have large AA thrombus. Gen surgery consulted for PEG placement. No overnight issues or complaints. Sister at bedside. Seeking guardianship so that they can pay the patient's bills. Diet, tube feeding no tray Nasogastric; Jevity 1.5 Kota; Continuous; Yes; 10; 10; 50; Water; Tap water; 50; Q 4 Hours 24HR INTAKE/OUTPUT: Intake/Output Summary (Last 24 hours) at 02/19/2023 0953 Last data filed at 02/19/2023 0832 Gross per 24 hour Intake 1344 ml Output 1050 ml Net 294 ml Past Medical History: Past Medical History: Diagnosis Date CAD (coronary artery disease) History of coronary artery bypass graft x 2 04/2014 Hyperlipidemia [place], old 03/28/2014 STEMI-inferior Pneumonia Presence of stent in coronary artery 03/2014 Third degree AV block (CMS/HCC) (HCC) 03/28/2014 during inferior STEMI LABS: CBC: Recent Labs 02/17/23802/18/2334102/19/23452 WBC 12.3* 10.5 8.9 RBC 4.88 4.79 4.66 HGB 14.5 14.7 13.9 HCT 43.1 43.1 42.0 MCV 88.3 89.9 90.3 RDW 14.0 13.9 14.2 PLT 303 306 319 BMP: Recent Labs 02/17/23802/18/2334102/19/23452 NA 144 144 144 K 3.7 3.6 3.9 CL 109* 108* 107 CO2 28 29 31* BUN 34* 44* 42* CREATININE 0.87 0.97 0.94 GLUCOSE 99 114* 107* CALCIUM 9.0 8.5 8.5 ANIONGAP 6 7 5 LIVER PROFILE: Recent Labs 02/17/23802/18/2334102/19/23452 AST 55* 44 45 ALT 92* 71* 61* BILITOT 1.1 0.8 0.6 ALKPHOS 91 89 92 PROT 5.6* 6.5 6.1* PT/INR: No results for input(s): PROTIME, INR in the last 72 hours. CARDIAC ENZYMES: No results for input(s): TROPONINI in the last 72 hours. Procalcitonin: No results found for: PROCAL COVID-19 PCR: No results for input(s): COVID19 in the last 72 hours. Objective: Vitals: BP 127/64 (BP Location: Left arm, Patient Position: Lying) Pulse 68 Temp 36.7 C (98.1 F) (Temporal) Resp 18 Ht 5' 5" (1.651 m) Wt 152 lb 12.5 oz (69.3 kg) SpO2 97% BMI 25.42 kg/m Pulse Ox: SpO2 Av % Min: 94 % Max: 97 % Supplemental O2: O2 Flow Rate (L/min): 2 L/min Physical Exam Cardiovascular: Rate and Rhythm: Normal rate and regular rhythm. Pulses: Normal pulses. Heart sounds: Normal heart sounds. Pulmonary: Effort: Pulmonary effort is normal. Breath sounds: Normal breath sounds. Abdominal: Tenderness: There is no abdominal tenderness. Comments: +PEG tube Neurological: Motor: Weakness present. Comments: Right hemiparesis,Right facial Droop, +aphasia Medications: Current Facility-Administered Medications: acetaminophen (Tylenol) tablet 650 mg, 650 mg, Oral, q6h PRN, 650 mg at 02/13/23 2328 OR acetaminophen (Tylenol) suppository 650 mg, 650 mg, Rectal, q6h PRN, Sarah Ricoodin-Estephanie, SOCCER REFEREE - ETHYLBENZENE CRACKING SUPERVISOR amLODIPine (Norvasc) tablet 10 mg, 10 mg, Oral, Daily, Sarah Berrodin-Estephanie, SOCCER REFEREE - ETHYLBENZENE CRACKING SUPERVISOR, 10 mg at 02/19/23 0831 [Held by provider] aspirin chewable tablet 81 mg, 81 mg, Per G Tube, Daily, Sarah Berrodin-Estephanie, SOCCER REFEREE - ETHYLBENZENE CRACKING SUPERVISOR, 81 mg at 02/12/23 0845 atorvastatin (Lipitor) tablet 40 mg, 40 mg, Per G Tube, Daily, Sarah Ricoodin-Estephanie, SOCCER REFEREE - ETHYLBENZENE CRACKING SUPERVISOR, 40 mg at 02/18/23 2135 bisacodyl (Dulcolax) suppository 10 mg, 10 mg, Rectal, Daily PRN, Sarah Ricoodin-Estephanie, SOCCER REFEREE - ETHYLBENZENE CRACKING SUPERVISOR bisacodyl (Dulcolax) suppository 10 mg, 10 mg, Rectal, Daily, Sarah Berrodin-Estephanie, SOCCER REFEREE - ETHYLBENZENE CRACKING SUPERVISOR, 10 mg at 02/13/23 0909 carvedilol (Coreg) tablet 25 mg, 25 mg, Per G Tube, BID WC, Sarah Ricoodin-Estephanie, SOCCER REFEREE - ETHYLBENZENE CRACKING SUPERVISOR, 25 mg at 02/19/23 0831 heparin injection 5,000 Units, 5,000 Units, SubCUTAneous, 3 times per day, Sarah Berrodin-Estephanie, SOCCER REFEREE - ETHYLBENZENE CRACKING SUPERVISOR, 5,000 Units at 02/19/23 0600 hydrALAZINE (Apresoline) injection 20 mg, 20 mg, IntraVENous, q4h PRN, Sarah Ricoodin-Estephanie, SOCCER REFEREE - ETHYLBENZENE CRACKING SUPERVISOR, 20 mg at 02/16/23 0705 iopamidol (Isovue-300) 61 % injection 25 mL, 25 mL, Other, Once PRN, Enzo Landa MD ipratropium-albuterol (Duo-Neb) 0.5-2.5 mg/3 mL nebulizer solution 3 mL, 3 mL, Nebulization, TID PRN, Sarah Berrodin-Estephanie, SOCCER REFEREE - ETHYLBENZENE CRACKING SUPERVISOR, 3 mL at 02/07/232112 labetalol (Normodyne,Trandate) injection 20 mg, 20 mg, IntraVENous, q4h PRN, Sarah Berrodin-Estephanie, SOCCER REFEREE - ETHYLBENZENE CRACKING SUPERVISOR, 20 mg at 02/11/23 0511 lidocaine (Uro-Jet) 2 % gel, , Topical, Once, Sarah Jackyodin-Estephanie, SOCCER REFEREE - ETHYLBENZENE CRACKING SUPERVISOR melatonin tablet 5 mg, 5 mg, Oral, Nightly PRN, Sarah Berrodin-Estephanie, SOCCER REFEREE - ETHYLBENZENE CRACKING SUPERVISOR, 5 mg at 02/14/232108 nystatin (Mycostatin) [id number] UNIT/ML suspension 500,000 Units, 5 mL, Swish & Spit, TID, Sarah Jackyodin-Estephanie, SOCCER REFEREE - ETHYLBENZENE CRACKING SUPERVISOR, 500,000 Units at 02/19/23 0831 ondansetron ODT (Zofran-ODT) disintegrating tablet 4 mg, 4 mg, Oral, q8h PRN OR ondansetron (Zofran) injection 4 mg, 4 mg, IntraVENous, q6h PRN, Sarah Jackyodin-Estephanie, SOCCER REFEREE - ETHYLBENZENE CRACKING SUPERVISOR pantoprazole (ProtoNix) EC tablet 40 mg, 40 mg, Oral, Nightly, 40 mg at 02/18/232134 OR pantoprazole (ProtoNix) injection 40 mg, 40 mg, IntraVENous, Nightly, Sarah Berrodin-Estephanie, SOCCER REFEREE - ETHYLBENZENE CRACKING SUPERVISOR, 40 mg at 02/17/232110 polyethylene glycol (PEG) 3350 (Miralax) packet 17 g, 17 g, Oral, BID, Sarah Jackyodin-Estephanie, SOCCER REFEREE - ETHYLBENZENE CRACKING SUPERVISOR, 17 g at 02/17/23 0903 polyvinyl alcohol (Liquifilm Tears) 1.4 % ophthalmic solution, , Both Eyes, PRN, Sarah Jackyodin-Estephanie, SOCCER REFEREE - ETHYLBENZENE CRACKING SUPERVISOR, Given at 02/13/23 1337 senna-docusate sodium (Senokot-S) 8.6-50 MG tablet 2 tablet, 2 tablet, Oral, BID, Sarah Jackyodin-Estephanie, SOCCER REFEREE - ETHYLBENZENE CRACKING SUPERVISOR, 2 tablet at 02/17/23 0903 sodium chloride 0.9 % infusion, 5-250 mL/hr, IntraVENous, PRN, Sarah Berrodin-Estephanie, SOCCER REFEREE - ETHYLBENZENE CRACKING SUPERVISOR, Stopped at 02/16/23 1534 sodium chloride 0.9% (NS) flush 5-40 mL, 5-40 mL, IntraVENous, q12h, Sarah Berrodin-Estephanie, SOCCER REFEREE - ETHYLBENZENE CRACKING SUPERVISOR, 10 mL at 02/19/23 0452 sodium chloride 0.9% (NS) flush 5-40 mL, 5-40 mL, IntraVENous, PRN, Sarah Berrodin-Estephanie, SOCCER REFEREE - ETHYLBENZENE CRACKING SUPERVISOR Assessment Data: (CAT1) Reviewed prior external notes from neurologist, ICU, hotel breakfast attendant unique sources (each=1). (LOW: 2x CAT1 or independent historian MOD: 3x CAT1 or 1x CAT3 EXTENSIVE: 3x CAT1 and 1x CAT3) Acute, acute on chronic, unstable/uncontrolled chronic problems/diagnoses: Left MCA Ischemic Stroke likely embolic with cytotoxic edema and brain compression KATELYNN thrombus Hypertension HLD Debility Dysphagia Aphasia Malnutrition Tobacco abuse Stable chronic problems affecting care, new non-acute diagnoses: [place] s/p CABG CAD Hx of 3rd degree AV block Plan As a result of the above findings & factors, the following mgmt was pursued: - start aspirin on February 20 that will be switched to oral anticoagulant on March 17, when OAC started, aspirin should be discontinued - SBP goal <160 - Tfs, ST - needs rehab - geriatrics consult for expert evaluation - am labs, replace lytes prn - PT/OT/CM/SW - delirium precautions: increase activity - DVT prophylaxis: heparin and encourage ambulation Complexity: Acute or chronic illness posing a threat to life (HIGH). Risk: Drug therapy requiring intensive monitoring (HIGH). ASA Advance Directive: Full Code Anticipated Discharge - Date - 02/21/23? - Location - Acute Rehab - Pending the following - facility choice, insurance auth Total time spent (which include face to face and non face to face encounters) : greater than 55 minutes Extended Emergency Contact Information Primary Emergency Contact: Leighann Sanabria Relation: Other Secondary Emergency Contact: Eileen Restrepo Relation: Other Wilmer Sheldon DO [facility] Medicine Inpatient Medical Services/[facility] [place] Nutrition Assessment Type and Reason for Visit: Reassess Nutrition Recommendations/Plan: Continue current TF Jevity 1.5 @50mL/hr, appropriately meeting pt's nutritional needs. Monitor nutrition status, SUPERVISOR DEHYDROGENATION, intakes, wt trends, labs, and fluid balance. RD will continue to follow. Malnutrition Assessment: Malnutrition Status: At risk for malnutrition (Comment) Context: Acute Illness Findings of the 6 clinical characteristics of malnutrition: Energy Intake: Mild decrease in energy intake (Comment) (pt receiving TF at goal rate since 02/07 w/ a few brief interruptions.) Weight Loss: Unable to assess (10# wt change since admission wt, ? UBW. unable to obtain hx and none documented in Epic) Body Fat Loss: No significant body fat loss Muscle Mass Loss: No significant muscle mass loss Fluid Accumulation: No significant fluid accumulation Extremities Senior Executive Compensation Analyst Strength: Not Performed Nutrition Assessment: Pt s/p PEG placement 02/16 and trasferred to F. Pt receiving and tolerating Jevity 1.5 @50mL/hr via PEG. SUPERVISOR DEHYDROGENATION continues to follow. Pt opened eyes upon RD entry, and closed them again. Nutrition Related Findings: +BS, loose stools; PEG. +I&O. Nonpitting edema BLE. Kar 15 Wound Type: (blister/abrasion right hip) BMP: Recent Labs 02/16/23 0010 02/16/23 0817 02/16/23 1604 02/17/23802/18/23341 NA 145 < > 144 144 144 K 3.7 -- -- 3.7 3.6 CL 109* -- -- 109* 108* CO2 32* -- -- 28 29 BUN 30* -- -- 34* 44* CREATININE 0.80 -- -- 0.87 0.97 GLUCOSE 113* -- -- 99 114* CALCIUM 8.6 -- -- 9.0 8.5 < > = values in this interval not displayed. HEPATIC: Recent Labs 02/16/23 0010 02/17/23 0009 02/18/23 0342 AST 66* 55* 44 ALT 102* 92* 71* BILITOT 0.6 1.1 0.8 ALKPHOS 79 91 89 Lab Results Component Value Date HGBA1C 4.8 02/06/2023 Current Nutrition Therapies: Diet, tube feeding no tray Nasogastric; Jevity 1.5 Kota; Continuous; Yes; 10; 10; 50; Water; Tap water; 50; Q 4 Hours Current Oral Intake Average Meal Intake: NPO Average Supplements Intake: NPO Anthropometric Measures: Height: 165.1 cm (5' 5") Current Body Weight: 69.9 kg (154 lb) (w/ multiple blankets) Weight Source: Bed Scale Admission Body Weight: 73.9 kg (163 lb) (02/06) Usual Body Weight: (Weight history in limited in Epic. 148# on 04/13/2017) Dixon Body Weight (lbs) (Calculated): 136 lbs Dixon Body Weight (Kg) (Calculated): 62 kg % Dixon Body Weight (Calculated): 120.4 % BMI (kg/m2) (Calculated): 25.6 Weight Adjustment For: No Adjustment BMI Categories: Overweight (BMI 25.0-29.9) Nutrition Interventions: Nutrition Education/Counseling: No recommendation at this time Coordination of Nutrition Care: Continue to monitor while inpatient Goals: Previous Goal Met: Progressing toward Goal(s) Goals: Tolerate nutrition support at goal rate Nutrition Monitoring and Evaluation: Behavioral-Environmental Outcomes: None Identified Food/Nutrient Intake Outcomes: Enteral Nutrition Intake/Tolerance, Diet Advancement/Tolerance Physical Signs/Symptoms Outcomes: Biochemical Data, Chewing or Swallowing, GI Status, Fluid Status or Edema, Nutrition Focused Physical Findings, Skin, Weight Discharge Planning: Too soon to determine Tennille Aranda RD, LD Contact: [phone] Speech-Language Pathology Facility/Department: [facility] [id number] SPEECH THERAPY TREATMENT NAME: Catina Land : 1955 ADMISSION DATE: 02/05/2023 ADMITTING DIAGNOSIS: has History of coronary artery bypass graft x 2; Hyperlipidemia; Presence of stent in coronary artery; CAD (coronary artery disease); WA, old; Acute ischemic stroke (HCC); Arterial ischemic stroke, MCA (middle cerebral artery), left, acute (HCC); Brain compression (CMS/HCC) (HCC); Cerebral edema (CMS/HCC) (HCC); and Troponin level elevated on their problem list. Not on File General General Chart Reviewed: Yes Patient Assessed for Rehabilitation Services: Yes Family / Caregiver Present: No General Comment PPE Worn: gloves Subjective Subjective: Limited verbal output. Right neglect is still noted. S: Alert and compliant throughout the session O: Address speech/language goals A: Yes/no environmental: 5/5; yes/no biographical 5/5; Automatic countin%; Automatic penny: 60%; naming objects in room: 30% independently; increased to 60% given semantic cue & paired with SUPERVISOR DEHYDROGENATION repetition. Education P: Continue with POC for both swallowing/speech language tx. Treatment Plan Requires SUPERVISOR DEHYDROGENATION Intervention: Yes Frequency/Duration: 3 days/wk for 2 weeks Treatment/Goals Encounter Problems Encounter Problems (Active) Cognition/Visual Perception Patient will participate in repeat cognitive assessment as appropriate. Start: 02/05/23 Patient will utilize memory intervention for task completion Start: 02/05/23 Patient will utilize problem-solving intervention for task completion Start: 02/05/23 Communication/Dysarthria Patient will follow 1 step commands (Progressing) Start: 02/07/23 Expected End: 02/21/23 Patient will participate in further assessment of speech and language skills (Progressing) Start: 02/07/23 Expected End: 02/21/23 Patient participates in automatic speech tasks (Progressing) Start: 02/07/23 Expected End: 02/21/23 SUPERVISOR DEHYDROGENATION Misc Yes/no questions (Progressing) Start: 02/07/23 Expected End: 02/21/23 Pt will answer simple yes/no questions with 70% accuracy. Swallowing Patient will complete oropharyngeal strengthening exercises to improve swallow function (Not Addressed) Start: 02/06/23 Expected End: 02/21/23 Patient will participate in repeat clinical dysphagia evaluation (Completed) Start: 02/06/23 Expected End: 02/21/23 Met: 02/07/23 Patient will tolerate therapeutic trials of recommended consistency without clinical signs and symptoms of aspiration (Not Addressed) Start: 02/06/23 Expected End: 02/21/23 Therapy Time SUPERVISOR DEHYDROGENATION Individual Minutes Time In: 1152 Time Out: 1207 Minutes: 15 Shira Perez CCC-SUPERVISOR DEHYDROGENATION 02/18/2023 12:12 PM Images from the original note were not included. Hospitalist Progress Note 02/18/2023 Subjective: Admit Date: 02/05/2023 PCP: No primary care provider on file. Room#: W3-323/W3-323 B Interval History: Patient transferred out of ICU onto hospitalist service. 67 YO male W/PMH of CAD, WA, (s/p CABG & stenting), and HLD. Patient presented to [facility] ED on 02/05/23 after being found down on floor of bathroom covered in vomit by EMS. Family had called for a well check after being unable to contact the patient. Last known well time was sometime Tuesday02/03/[address] imaging showed L MCA infarct. Out of window for TNK, not amenable to thrombectomy d/t large established core infarct. He was admitted to T2 ICU. Cardiology following d/t NSTEMI med manage with beta courtney & statin. He was briefly on 3% NaCl for cerebral edema & mass effect. Dobhoff in place for nutrition d/t ongoing speech therapy for dysphagia. Later found to have large AA thrombus. Gen surgery consulted for PEG placement. Stabilized and transferred to hospitalist service. No overnight issues or complaints. Diet, tube feeding no tray Nasogastric; Jevity 1.5 Kota; Continuous; Yes; 10; 10; 50; Water; Tap water; 50; Q 4 Hours 24HR INTAKE/OUTPUT: Intake/Output Summary (Last 24 hours) at 02/18/2023 1014 Last data filed at 02/18/2023 0906 Gross per 24 hour Intake 1664 ml Output 925 ml Net 739 ml Past Medical History: Past Medical History: Diagnosis Date CAD (coronary artery disease) History of coronary artery bypass graft x 2 04/2014 Hyperlipidemia WA, old 03/28/2014 STEMI-inferior Pneumonia Presence of stent in coronary artery 03/2014 Third degree AV block (CMS/HCC) (HCC) 03/28/2014 during inferior STEMI LABS: CBC: Recent Labs 02/16/23 0010 02/17/23 0009 02/18/23 0342 WBC 9.6 12.3* 10.5 RBC 4.91 4.88 4.79 HGB 14.6 14.5 14.7 HCT 43.3 43.1 43.1 MCV 88.3 88.3 89.9 RDW 14.0 14.0 13.9 PLT 296 303 306 BMP: Recent Labs 02/16/23 0010 02/16/23 0817 02/16/23 1604 02/17/23 0009 02/18/23341 NA 145 < > 144 144 144 K 3.7 -- -- 3.7 3.6 CL 109* -- -- 109* 108* CO2 32* -- -- 28 29 BUN 30* -- -- 34* 44* CREATININE 0.80 -- -- 0.87 0.97 GLUCOSE 113* -- -- 99 114* CALCIUM 8.6 -- -- 9.0 8.5 ANIONGAP 5 -- -- 6 7 < > = values in this interval not displayed. LIVER PROFILE: Recent Labs 02/16/23 0010 02/17/23 0009 02/18/23341 AST 66* 55* 44 ALT 102* 92* 71* BILITOT 0.6 1.1 0.8 ALKPHOS 79 91 89 PROT 5.6* 5.6* 6.5 PT/INR: Recent Labs 02/16/23 001 PROTIME 11.5 INR 1.1 CARDIAC ENZYMES: No results for input(s): TROPONINI in the last 72 hours. Procalcitonin: No results found for: PROCAL COVID-19 PCR: No results for input(s): COVID19 in the last 72 hours. Objective: Vitals: BP 118/70 (BP Location: Right arm, Patient Position: Lying) Pulse 68 Temp 36.5 C (97.7 F) (Temporal) Resp 14 Ht 5' 5" (1.651 m) Wt 152 lb 12.5 oz (69.3 kg) SpO2 96% BMI 25.42 kg/m Pulse Ox: SpO2 Av.4 % Min: 89 % Max: 97 % Supplemental O2: O2 Flow Rate (L/min): 3 L/min Physical Exam Cardiovascular: Rate and Rhythm: Normal rate and regular rhythm. Pulses: Normal pulses. Heart sounds: Normal heart sounds. Pulmonary: Effort: Pulmonary effort is normal. Breath sounds: Normal breath sounds. Abdominal: Tenderness: There is no abdominal tenderness. Comments: +PEG tube Neurological: Motor: Weakness present. Comments: Right hemiparesis,Right facial Droop, +aphasia Medications: Current Facility-Administered Medications: acetaminophen (Tylenol) tablet 650 mg, 650 mg, Oral, q6h PRN, 650 mg at 02/13/23 2328 OR acetaminophen (Tylenol) suppository 650 mg, 650 mg, Rectal, q6h PRN, Sarah Ricoodin-Estephanie, SOCCER REFEREE - ETHYLBENZENE CRACKING SUPERVISOR amLODIPine (Norvasc) tablet 10 mg, 10 mg, Oral, Daily, Sarah Ricoodin-Estephanie, SOCCER REFEREE - ETHYLBENZENE CRACKING SUPERVISOR, 10 mg at 02/18/23 0855 [Held by provider] aspirin chewable tablet 81 mg, 81 mg, Per G Tube, Daily, Sarah Berrodin-Estephanie, SOCCER REFEREE - ETHYLBENZENE CRACKING SUPERVISOR, 81 mg at 02/12/23 0845 atorvastatin (Lipitor) tablet 40 mg, 40 mg, Per G Tube, Daily, Sarah Ricoodin-Estephanie, SOCCER REFEREE - ETHYLBENZENE CRACKING SUPERVISOR, 40 mg at 02/17/23 2112 bisacodyl (Dulcolax) suppository 10 mg, 10 mg, Rectal, Daily PRN, Sarah Ricoodin-Estephanie, SOCCER REFEREE - ETHYLBENZENE CRACKING SUPERVISOR bisacodyl (Dulcolax) suppository 10 mg, 10 mg, Rectal, Daily, Sarah Ricoodin-Estephanie, SOCCER REFEREE - ETHYLBENZENE CRACKING SUPERVISOR, 10 mg at 02/13/23 0909 carvedilol (Coreg) tablet 25 mg, 25 mg, Per G Tube, BID WC, Sarah Ricoodin-Estephanie, SOCCER REFEREE - ETHYLBENZENE CRACKING SUPERVISOR, 25 mg at 02/18/23 0855 heparin injection 5,000 Units, 5,000 Units, SubCUTAneous, 3 times per day, Sarah Lehman-Estephanie, SOCCER REFEREE - ETHYLBENZENE CRACKING SUPERVISOR, 5,000 Units at 02/18/23 0616 hydrALAZINE (Apresoline) injection 20 mg, 20 mg, IntraVENous, q4h PRN, Sarah Lehman-Estephanie, SOCCER REFEREE - ETHYLBENZENE CRACKING SUPERVISOR, 20 mg at 02/16/23 0705 iopamidol (Isovue-300) 61 % injection 25 mL, 25 mL, Other, Once PRN, Enzo Landa MD ipratropium-albuterol (Duo-Neb) 0.5-2.5 mg/3 mL nebulizer solution 3 mL, 3 mL, Nebulization, TID PRN, Sarah Lehman-Estephanie, SOCCER REFEREE - ETHYLBENZENE CRACKING SUPERVISOR, 3 mL at 02/07/23 211 labetalol (Normodyne,Trandate) injection 20 mg, 20 mg, IntraVENous, q4h PRN, Sarah Ricoodin-Estephanie, SOCCER REFEREE - ETHYLBENZENE CRACKING SUPERVISOR, 20 mg at 02/11/23 0511 lidocaine (Uro-Jet) 2 % gel, , Topical, Once, Sarah Rcioodin-Estephanie, SOCCER REFEREE - ETHYLBENZENE CRACKING SUPERVISOR melatonin tablet 5 mg, 5 mg, Oral, Nightly PRN, Sarah Jackyodin-Estephanie, SOCCER REFEREE - ETHYLBENZENE CRACKING SUPERVISOR, 5 mg at 02/14/23 2109 nystatin (Mycostatin) [id number] UNIT/ML suspension 500,000 Units, 5 mL, Swish & Spit, TID, Sarah Ricoodin-Estephanie, SOCCER REFEREE - ETHYLBENZENE CRACKING SUPERVISOR, 500,000 Units at 02/18/23 0855 ondansetron ODT (Zofran-ODT) disintegrating tablet 4 mg, 4 mg, Oral, q8h PRN OR ondansetron (Zofran) injection 4 mg, 4 mg, IntraVENous, q6h PRN, Sarah Lehman-Estephanie, SOCCER REFEREE - ETHYLBENZENE CRACKING SUPERVISOR pantoprazole (ProtoNix) EC tablet 40 mg, 40 mg, Oral, Nightly, 40 mg at 02/11/23 2133 OR pantoprazole (ProtoNix) injection 40 mg, 40 mg, IntraVENous, Nightly, Sarah Ricoodin-Estephanie, SOCCER REFEREE - ETHYLBENZENE CRACKING SUPERVISOR, 40 mg at 02/17/23 211 polyethylene glycol (PEG) 3350 (Miralax) packet 17 g, 17 g, Oral, BID, Sarah Lehman-Estephanie, SOCCER REFEREE - ETHYLBENZENE CRACKING SUPERVISOR, 17 g at 02/17/23 0903 polyvinyl alcohol (Liquifilm Tears) 1.4 % ophthalmic solution, , Both Eyes, PRN, Sarah Ricoodin-Estephanie, SOCCER REFEREE - ETHYLBENZENE CRACKING SUPERVISOR, Given at 02/13/23 1337 senna-docusate sodium (Senokot-S) 8.6-50 MG tablet 2 tablet, 2 tablet, Oral, BID, Sarah Lehman-Estephanie, SOCCER REFEREE - ETHYLBENZENE CRACKING SUPERVISOR, 2 tablet at 02/17/23 0903 sodium chloride 0.9 % infusion, 5-250 mL/hr, IntraVENous, PRN, Sarah Ricoodin-Estephanie, SOCCER REFEREE - ETHYLBENZENE CRACKING SUPERVISOR, Stopped at 02/16/23 1534 sodium chloride 0.9% (NS) flush 5-40 mL, 5-40 mL, IntraVENous, q12h, Sarah Berrodin-Estephanie, SOCCER REFEREE - ETHYLBENZENE CRACKING SUPERVISOR, 10 mL at 02/17/23 1137 sodium chloride 0.9% (NS) flush 5-40 mL, 5-40 mL, IntraVENous, PRN, Sarah Berrodin-Estephanie, SOCCER REFEREE - ETHYLBENZENE CRACKING SUPERVISOR Assessment Data: (CAT1) Reviewed prior external notes from neurologist, ICU, hotel breakfast attendant unique sources (each=1). (LOW: 2x CAT1 or independent historian MOD: 3x CAT1 or 1x CAT3 EXTENSIVE: 3x CAT1 and 1x CAT3) Acute, acute on chronic, unstable/uncontrolled chronic problems/diagnoses: Left MCA Ischemic Stroke likely embolic with cytotoxic edema and brain compression KATELYNN thrombus Hypertension HLD Debility Dysphagia Aphasia Malnutrition Tobacco abuse Stable chronic problems affecting care, new non-acute diagnoses: [place] s/p CABG CAD Hx of 3rd degree AV block Plan As a result of the above findings & factors, the following mgmt was pursued: - start aspirin on February 20 that will be switched to oral anticoagulant on March 17, when OAC started, aspirin should be discontinued - SBP goal <160 - Tfs, ST - needs rehab - am labs, replace lytes prn - PT/OT/CM/SW - delirium precautions: increase activity - DVT prophylaxis: heparin and encourage ambulation Complexity: Acute or chronic illness posing a threat to life (HIGH). Risk: Drug therapy requiring intensive monitoring (HIGH). ASA Advance Directive: Full Code Anticipated Discharge - Date - 02/21/23? - Location - Acute Rehab - Pending the following - facility choice, insurance auth Total time spent (which include face to face and non face to face encounters) : greater than 55 minutes Extended Emergency Contact Information Primary Emergency Contact: Leighann Sanabria Relation: Other Secondary Emergency Contact: Eileen Restrepo Relation: Other Wilmer Sheldon DO Division of Hospitalist Medicine Inpatient Medical Services/[facility] [place] Occupational Therapy Facility/Department: [facility] Occupational Therapy Treatment NAME: Catina Traore Adeola : 1955 Date of Service: 02/18/2023 Discharge Recommendations: IP Rehab Assessment Performance deficits / Impairments: Decreased functional mobility , Decreased safe awareness, Decreased balance, Decreased coordination, Decreased posture, Decreased cognition, Decreased ADL status, Decreased ROM, Decreased endurance, Decreased strength, Decreased fine motor control Assessment: Pt Max Ax2 for bed mobility, sitting EOB and standing balance requiring third person for knee blocking during static stand. This session, pt limited w/decreased midline orientation, trunk/head control, decreased cognition, aphasic, R side neglect. To maximize greatest potential, intensive therapy intervention recommend. High level of vp care management burden and high fall risk. OT recommends IPR at d/c; Pt is able to tolerate 3 hours of therapy a day. Prognosis: Good REQUIRES OT FOLLOW-UP: Yes Patient Diagnosis(es): The primary encounter diagnosis was Acute ischemic stroke (HCC). Diagnoses of Elevated troponin, Abnormal ECG, Cerebral edema (CMS/HCC) (HCC), and Leg edema, right were also pertinent to this visit. 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 has a past surgical history that includes Coronary artery bypass graft (04/2014) and Coronary angioplasty (03/28/2014). Restrictions Restrictions/Precautions Restrictions/Precautions: Fall Risk, General Precautions Required Braces or Orthoses?: Yes Lower Extremity Weight Bearing Restrictions Right Lower Extremity Weight Bearing: Weight Bearing As Tolerated Left Lower Extremity Weight Bearing: Weight Bearing As Tolerated Position Activity Restriction Other position/activity restrictions: PIV, PEG, catheter, HOB 30 degrees Vision/Hearing Vision: Functional/adequate for paticipation in therapy Vision Exceptions: Visual field cut Hearing: Functional/adequate for paticipation in therapy Cognition/Orientation Overall Cognitive Status: Exceptions Following Commands: Follows one step commands with repetition, Follows one step commands with increased time Initiation: Requires cues for all Sequencing: Requires cues for all Overall Orientation Status: Impaired Subjective General Patient Assessed for Rehabilitation Services: Yes Subjective Subjective: Pt in bed upon arrival; agreeable to OT therapy pt aphasic gave a thumb up in agreement. General Comments Comments: C/o pain unable to rate or verbalized location. Pain Assessment Pain Assessment: 0-10 Pain Score: (Pt unable to rate pain level) Objective Balance Sitting Balance: Maximum assistance (2 skilled tharapist) Standing Balance: Maximum assistance (2 skilled therapist) Standing Balance Comment: Max A for sit EOB; pt demonstrated retro and R lateral lean; facilitation of trunk/neck control at Max A (see neuro); midline orientation w/neuro re ed to RUE proximal to distal completed Static standing with two person bilateral support w/blocking of bilateral knees. Verbal and tactile cues provided for improved upright posture; quick fatigue able to tolerate ~30 seconds of standing. Bed mobility Rolling to Left: Maximum assistance, 2 Person assistance Supine to Sit: Maximum assistance, 2 Person assistance Sit to Supine: Maximum assistance, 2 Person assistance Scooting: Maximal assistance, 2 Person assistance Comment: Pt requires Max x2 for all bed mobility with use of glide sheet. Transfers Sit to stand: Maximum assistance, 2 Person assistance Stand to sit: Maximum assistance, 2 Person assistance Transfer Comments: Pt Max Ax2 with bilateral support for sit to stand EOB with third person for knee blocking; Decreased strength and endurance w/posterior stand when fatigued. ~30 second stand completed twice; max verbal cues (with extra time for processing commands) provided to initiate upright neck increased neck ext to decreased neck forward; pt attempted correction w/inability to facilate or sustain with Max A/[place] assist Neuromuscular Education Neuromuscular Education: Yes NDT Treatment: Sitting, Standing, Upper extremity, Lower extremity Joint Compression: RUE proximal to distal with support provided to each joint within compression Taping: proximal to distal with no sensation detected continue to assess due to severe neglect Head/Neck Control: supported sit EOB, faciliation for neutral /midline neck and head orientation at Max assist with ~30 sec ability to sustain; visual tracking while in R visual field with Max/Dep assist to rotate neck/head to R side with object tracking. Trunk Control: Max A for sitting EOB while completing trunk/core/neck strengthing and facilitation of midline, WB to forearm through LUE forearm while seated EOB, hand placement on bilateral knees to shift out of posterior stance to midline, BUE pec stretches to decrease tone improve functional movement pattern/motor responses. Longer sustained neuro re education techniques completed decrease R lateral lean, improve righting responses, facilitate upright sitting position and improve body awareness in space/balance against gravity. Response to Techniques: continue education needed, improved body awareness in space, midline orientation, proprioceptive input, increased R side visual field for limited time Plan Times per Week: 5-7 Plan Weeks: 4 weeks Current Treatment Recommendations: Strengthening, Pain Management, Positioning, Safety Education & Training, Gait Training, Balance Training, ROM, Patient/Caregiver Education & Training, Self-Care / ADL, Home Management Training, Equipment Evaluation, Education, & procurement, Functional Mobility Training, Endurance Training Safety Safety Devices in place: Yes Type of devices: Nurse notified, Call light within reach, Patient at risk for falls, Gait belt, Bed alarm in place, Left in bed Restraints Initially in place: No Outcomes Score AM-PAC Score Goals Encounter Problems Encounter Problems (Active) Balance Patient will maintain dynamic standing balance for 5-10 minutes with supervision in order to demonstrate decreased risk of falling. (Slowly Progressing) Start: 02/07/23 Expected End: 03/14/23 Bathing Patient will utilize adaptive techniques to bathe body min A. (Not Addressed) Start: 02/07/23 Expected End: 03/14/23 Dressing Upper Extremities Patient will complete upper body dressing min A. (Not Addressed) Start: 02/07/23 Expected End: 03/14/23 Dressings Lower Extremities Patient will dress lower body min A. (Not Addressed) Start: 02/07/23 Expected End: 03/14/23 OT Misc Misc 1 (Not Addressed) Start: 02/07/23 Expected End: 03/14/23 Patient will tolerate PROM of RUE to decrease risk of contracture formation and help increase AROM. Toileting Patient will complete toileting tasks at standard toilet with min assist. (Slowly Progressing) Start: 02/07/23 Expected End: 03/14/23 Education Education Given To: Patient Education Provided: OT Role, Plan of Care, Orientation Education Provided Comments: Pt educated benefits weight shifting, midline orientantion. Education Method: Verbal Barriers to Learning: Cognition Education Outcome: Continued education needed Therapy Time Individual Co-treatment Time In 0758 Time Out 0846 Minutes 48 Timed Code Treatment Minutes: 48 Minutes (3 Neuro) Huey Heath/RICHY I have reviewed this note and agree to its content. [facility] Facility/Department: [facility] Physical Therapy Daily Treatment Note NAME: Catina Land : 1955 Date of Service: 02/18/2023 Discharge Recommendations: IP Rehab PT Equipment Recommendations Equipment Needed: No Assessment Assessment: Pt has not been progressing towards his transfer goals during this session. Pt required Max A x2-3 for bed mobility and transfers due to functional weakness and decreased mobility. Pt required 2-3 skilled therapists for assistance to work on maintaining midline orientation while sitting and horizontal tracking. Pt focused on working on functional strength, weight bearing of R side for increased proprioceptive input, trunk/head control, and horizontal gaze tracking. Pt did not progress on his ambulation goal to date limited by functional weakness and balance deficits. Performance Deficits/Impairments: Decreased functional mobility , Decreased strength, Decreased balance, Decreased endurance, Decreased ADL status Requires PT Follow-Up: Yes Treatment Initiated : 2 [facility], 1 Neuro Carter Patient Diagnosis(es): The primary encounter diagnosis was Acute ischemic stroke (HCC). Diagnoses of Elevated troponin, Abnormal ECG, Cerebral edema (CMS/HCC) (HCC), and Leg edema, right were also pertinent to this visit. has a past medical history of CAD (coronary artery disease), History of coronary artery bypass graft x 2 (04/2014), Hyperlipidemia, [place], old (03/28/2014), Pneumonia, Presence of stent in coronary artery (03/2014), and Third degree AV block (CMS/HCC) (HCC) (03/28/2014). has a past surgical history that includes Coronary artery bypass graft (04/2014) and Coronary angioplasty (03/28/2014). Restrictions Restrictions/Precautions Restrictions/Precautions: Fall Risk, General Precautions, Modified Diet Required Braces or Orthoses?: Yes (Use of kaveh splints on BLE when lying supine in bed) Lower Extremity Weight Bearing Restrictions Right Lower Extremity Weight Bearing: Weight Bearing As Tolerated Left Lower Extremity Weight Bearing: Weight Bearing As Tolerated Position Activity Restriction Other position/activity restrictions: PIV, PEG, catheter, HOB 30 degrees Vision/Hearing Subjective General Chart Reviewed: Yes Patient Assessed for Rehabilitation Services: Yes Response To Previous Treatment: Patient unable to report, no changes reported from family or staff Family / Caregiver Present: No Diagnosis: acute ischemic stroke, elevated troponin, abnormal ECG Follows Commands: Within Functional Limits Subjective Subjective: Pt lying supine in bed upon arrival of PT treatment session. Pt was aphasic; able to answer yes or no questions with a thumbs up or down to determine needs. Pt agreed to theray and was cooperative throughout session. Cognition/Orientation Overall Cognitive Status: Exceptions Arousal/Alertness: Appropriate responses to stimuli Following Commands: Follows one step commands with repetition, Follows one step commands with increased time Attention Span: Attends with cues to redirect, Difficulty attending to directions Safety Judgement: Decreased awareness of need for assistance Initiation: Requires cues for some Sequencing: Requires cues for some Cognition Comment: pt aphasic, unable to answer orientation questions at this time Overall Orientation Status: Impaired Objective Bed mobility Rolling to Left: Maximum assistance, 2 Person assistance Supine to Sit: Maximum assistance, 2 Person assistance Sit to Supine: Maximum assistance, 2 Person assistance Scooting: Maximal assistance, 2 Person assistance Comment: HOB elevated with use of glide sheet for assistance. Pt required 2 skilled therapist for bed mobility due to significant weakness on R side. Pt tended to lean towards the L side and required therapist to support trunk from behind and assist with head control. Pt able to use LUE for support and stability. Transfers Sit to Stand: Maximum Assistance, 2 Person Assistance Stand to sit: Maximum Assistance, 2 Person Assistance Comment: EOB x1 with Max A x2. Pt required additional cueing for weight shifting, forward trunk lean, and sequencing. Pt required 2 skilled therapists for bilateral knee blocking, support of RUE, and for balance control during transfer. Pt was able to stand for approx 30 seconds with Max A 2-3 person assistance focusing on equal weight bearing and neutral trunk orientation. Ambulation Ambulation: No Balance Posture: Poor Sitting - Static: Poor, + Sitting - Dynamic: Poor Standing - Static: Poor Standing - Dynamic: Poor Comments: Pt sat at EOB for approx 20 minutes with Max 2-3 person assistance for static and dynamic seated balance. Pt working on midline trunk orientation, horizontal tracking to midline and across midline towards R side. Pt maintained neutral head control for approx less than 1 minute unsupported. Pt required therapist support for head control throughout session. Pt demonstrated need for BLE knee blocking and RUE support/assistance for standing balance and required 2-3 person max assistance for balance control and safety. Pt worked on various positions of unilateral vs bilateral support (RUE required dependant assistance), on bilateral knees vs on bed. Exercises Comments: Pt performed seated weight shifts towards L side with forearm going down on the bed, static seated balance, midline trunk orientation, and visual tracking Plan Times per Week: 3-5 Plan Weeks: 2 Current Treatment Recommendations: Strengthening, ROM, Balance Training, Gait Training, Functional Mobility Training, Transfer Training, Safety Education & Training, Equipment Evaluation, Education, & procurement, Patient/Caregiver Education & Training, Neuromuscular Re-education, ADL/Self-care Training, IADL Training Safety Safety Devices Safety Devices in Place: Yes Type of Devices: Gait belt, Call light within reach, Nurse notified, All fall risk precautions in place, Patient at risk for falls, Left in bed, Bed alarm in place (Pt independenly used call light with use of LUE. Pt was left in BLE kaveh splints following treatment session to support both LE in neutral. Pt was left with pillows adjusted for joint protection under BUE.) Restraints Restraints Initially in Place: No Outcomes Score AM-PAC Score AM-PAC Inpatient Mobility Raw Score: 7 Mobility Inpatient [facility] G-Code Modifier: CM Goals Encounter Problems Encounter Problems (Active) Mobility Patient will ambulate 25 feet with CGA and stephanie-walker or pyramid cane in order to improve safety and independence with mobility. (Not Addressed) Start: 02/07/23 Expected End: 02/21/23 Pain - Adult Transfers Patient will perform bed mobility with SBA in order to improve independence and prepare for out of bed mobility. (Not Progressing) Start: 02/07/23 Expected End: 02/21/23 Patient will complete functional transfer bed to/from chair with SBA in order to prepare for ambulation. (Not Progressing) Start: 02/07/23 Expected End: 02/21/23 Patient will complete sit to stand transfer with SBA in order to improve safety and prepare for out of bed mobility. (Not Progressing) Start: 02/07/23 Expected End: 02/21/23 Education Education Given To: Patient Education Provided: PT Role, Plan of Care, Family Education, General Safety, Transfer Training Education Provided Comments: Pt educated on role of PT and plan of care. Pt educated on general safety to call staff for assistance to decrease fall risk. Education Method: Verbal Education Outcome: Continued education needed, Verbalized understanding Therapy Time Individual Co-treatment Time In 0759 (Co Treat with OT) Time Out 0845 Minutes 46 Timed Code Treatment Minutes: 46 Minutes (2 Func, 1 Neuro Carter) This provider wore mask and gloves throughout entire session with patient. Walter Villasenor, SPT Associated attestation - Wm Rm, PT - 02/18/2023 11:05 AM EDT This PT, SPT, PEREZ and PEREZ student all in room. Pt requires cueing on head control. Difficulty maintaining and requires assist from PT to maintain upright Pt tends to neglect right side. Needs cueing on tracking to right side. Pt originally had RLE nedra splint but is noted to keep LLE in max PF. Got another nedra splint for LLE. Pt wearing O2 during session INTERVENTIONAL RADIOLOGY PROGRESS NOTE Admit Date: 02/05/2023 Subjective: This is a 67 y.o. male admitted to [facility] on 02/05/2023 after being found down following welfare check. Patient suffered large MCA infarct. Patient underwent PEG tube placement by IR yesterday due to concern for aspiration. When seen, patient resting comfortably in bed, no distress. Objective: Vitals: Vitals: 02/17/23 1354 BP: 129/68 Pulse: 68 Resp: 17 Temp: 35.9 C (96.6 F) SpO2: 90% General appearance: Alert, non-toxic, no acute distress. Abdomen: Abdominal binder in place. PEG tube in place with surrounding dressing C/D/I. No leakage around tube noted. Neurologic: Alert. DATA: CBC: Lab Results Component Value Date WBC 12.3 (H) 02/17/2023 HGB 14.5 02/17/2023 HCT 43.1 02/17/2023 MCV 88.3 02/17/2023 PLT 303 02/17/2023 BMP: Lab Results Component Value Date GLUCOSE 99 02/17/2023 CALCIUM 9.0 02/17/2023 NA 144 02/17/2023 K 3.7 02/17/2023 CO2 28 02/17/2023 CL 109 (H) 02/17/2023 BUN 34 (H) 02/17/2023 CREATININE 0.87 02/17/2023 INR: Lab Results Component Value Date INR 1.1 02/16/2023 INR 1.1 02/05/2023 PROTIME 11.5 02/16/2023 PROTIME 11.1 02/05/2023 I&O: I/O last 3 completed shifts: In: 2567.5 (37 mL/kg) [I.V.:1810 (26.1 mL/kg); NG/GT:751; IV Piggyback:6.5] Out: 2280 (32.9 mL/kg) [Urine:2275 (0.9 mL/kg/hr); Blood:5] Weight: 69.3 kg I/O this shift: In: 442 [I.V.:185; NG/GT:257] Out: 450 [Urine:450] Assessment/Plan Catina Land is a 67 y.o. male who was admitted to [facility] on 02/05/2023 for left MCA infarct. S/p PEG tube 02/16/23. PEG tube without complication at this time, okay for use. Tube should be flushed with 60 mL saline before and after each use. Continue medical management and disposition per primary team. I personally spent 10 minutes consulting with patient, of which over 50% was spent counseling. Radhika Barrera PA-C Interventional Radiology Speech-Language Pathology Facility/Department: [facility] [id number] SPEECH THERAPY TREATMENT NAME: Catina Land : 1955 ADMISSION DATE: 02/05/2023 ADMITTING DIAGNOSIS: has History of coronary artery bypass graft x 2; Hyperlipidemia; Presence of stent in coronary artery; CAD (coronary artery disease); [place], old; Acute ischemic stroke (HCC); Arterial ischemic stroke, MCA (middle cerebral artery), left, acute (HCC); Brain compression (CMS/HCC) (HCC); Cerebral edema (CMS/HCC) (HCC); and Troponin level elevated on their problem list. Not on File Onset Date: 02/05/23 Pain: managed by RN General General Chart Reviewed: Yes Patient Assessed for Rehabilitation Services: Yes Family / Caregiver Present: No General Comment PPE Worn: gloves Subjective Subjective: Limited verbal output. Right neglect is still noted. S: Patient is upright in bed, agreeable to ST. O: To address language goals A: Simple Yes/No Questions - 70% acc with thumbs up/down, Thumbs up and down are practiced individually first, questions are opposites - asleep/awake, lights on/off, etc Choose from 2 items - 80% acc to indicate when first presented separately Verbalization - attempts all indicated items, mainly grunting sounds this , can say "No", attempts main corner vowels from quadrilateral, limited lingual movement Education Education Given: communication - Patient's sister educated on progress with understanding expressed P: Recommend continue speech language plan of care. ST to follow. Treatment Plan Requires SUPERVISOR DEHYDROGENATION Intervention: Yes Frequency/Duration: 3 days/wk for 2 weeks Treatment/Goals Encounter Problems Encounter Problems (Active) Cognition/Visual Perception Patient will participate in repeat cognitive assessment as appropriate. Start: 02/05/23 Patient will utilize memory intervention for task completion Start: 02/05/23 Patient will utilize problem-solving intervention for task completion Start: 02/05/23 Communication/Dysarthria Patient will follow 1 step commands (Progressing) Start: 02/07/23 Expected End: 02/21/23 Patient will participate in further assessment of speech and language skills (Progressing) Start: 02/07/23 Expected End: 02/21/23 Patient participates in automatic speech tasks (Not Progressing) Start: 02/07/23 Expected End: 02/21/23 SUPERVISOR DEHYDROGENATION Misc Yes/no questions (Progressing) Start: 02/07/23 Expected End: 02/21/23 Pt will answer simple yes/no questions with 70% accuracy. Swallowing Patient will complete oropharyngeal strengthening exercises to improve swallow function (Not Addressed) Start: 02/06/23 Expected End: 02/21/23 Patient will participate in repeat clinical dysphagia evaluation (Completed) Start: 02/06/23 Expected End: 02/21/23 Met: 02/07/23 Patient will tolerate therapeutic trials of recommended consistency without clinical signs and symptoms of aspiration (Not Addressed) Start: 02/06/23 Expected End: 02/21/23 Therapy Time Time Out: 1045 Total Time: 14 minutes DAYANA Proctor 02/17/2023 11:02 AM PROGRESS NOTE. STROKE SERVICE Patient Name:Catina Land Patient : 1955 Acct: [id number] Date of Admission: 02/05/2023 Room/Bed: [facility] A PCP: No primary care provider on file. Patient location ICU Remains in the hospital due to persistent unresolved acute issues, Subjective:see consult note New Complain: No documented events overnight. PEG placed successfully yesterday afternoon. SBP have been 130-150. He has remained afebrile. Na this morning 144, Os 311. Upon seeing him this morning, exam remains the same. Sedation:No Diet/TF:NPO tube feeds Morales: Yes VTE prophylaxis: YES SCDs & heparin 5000 TID Antithrombotic therapy in first 24 hrs: YES aspirin Statin therapy for stroke stroke patients: High intensity Anticoagulation on AF patients: N/A no history of AF Activity: PT/OT Disposition: IP rehab Current Hospital Medications: Current Facility-Administered Medications: acetaminophen (Tylenol) tablet 650 mg, 650 mg, Oral, q6h PRN, 650 mg at 02/13/23 2328 OR acetaminophen (Tylenol) suppository 650 mg, 650 mg, Rectal, q6h PRN, Sarah Lehman-Estephanie, SOCCER REFEREE - ETHYLBENZENE CRACKING SUPERVISOR amLODIPine (Norvasc) tablet 10 mg, 10 mg, Oral, Daily, Sarah Lehman-Estephanie, SOCCER REFEREE - ETHYLBENZENE CRACKING SUPERVISOR, 10 mg at 02/16/23 0901 [Held by provider] aspirin chewable tablet 81 mg, 81 mg, Per G Tube, Daily, Sarah Lehman-Estephanie, SOCCER REFEREE - ETHYLBENZENE CRACKING SUPERVISOR, 81 mg at 02/12/23 0845 atorvastatin (Lipitor) tablet 40 mg, 40 mg, Per G Tube, Daily, Sarah Lehman-Estephanie, SOCCER REFEREE - ETHYLBENZENE CRACKING SUPERVISOR, 40 mg at 02/16/23 205 bisacodyl (Dulcolax) suppository 10 mg, 10 mg, Rectal, Daily PRN, Sarah Lehman-Estephanie SOCCER REFEREE - ETHYLBENZENE CRACKING SUPERVISOR bisacodyl (Dulcolax) suppository 10 mg, 10 mg, Rectal, Daily, Sarah Ricoodin-Estephanie, SOCCER REFEREE - ETHYLBENZENE CRACKING SUPERVISOR, 10 mg at 02/13/23 0909 carvedilol (Coreg) tablet 25 mg, 25 mg, Per G Tube, BID WC, Sarah Ricoodin-Estephanie, SOCCER REFEREE - ETHYLBENZENE CRACKING SUPERVISOR, 25 mg at 02/16/23 1719 heparin injection 5,000 Units, 5,000 Units, SubCUTAneous, 3 times per day, Sarah Lehman-Estephanie, SOCCER REFEREE - ETHYLBENZENE CRACKING SUPERVISOR, 5,000 Units at 02/17/23 0616 hydrALAZINE (Apresoline) injection 20 mg, 20 mg, IntraVENous, q4h PRN, Sarah Ricoodin-Estephanie, SOCCER REFEREE - ETHYLBENZENE CRACKING SUPERVISOR, 20 mg at 02/16/23 0705 iopamidol (Isovue-300) 61 % injection 25 mL, 25 mL, Other, Once PRN, Enzo Landa MD ipratropium-albuterol (Duo-Neb) 0.5-2.5 mg/3 mL nebulizer solution 3 mL, 3 mL, Nebulization, TID PRN, Sarah Ricoodin-Estephanie, SOCCER REFEREE - ETHYLBENZENE CRACKING SUPERVISOR, 3 mL at 02/07/232112 labetalol (Normodyne,Trandate) injection 20 mg, 20 mg, IntraVENous, q4h PRN, Sarah Lehman-Estephanie, SOCCER REFEREE - ETHYLBENZENE CRACKING SUPERVISOR, 20 mg at 02/11/23 0511 lactated Ringer's infusion, 50 mL/hr, IntraVENous, Continuous, Sarah Lehman-Estephanie, SOCCER REFEREE - ETHYLBENZENE CRACKING SUPERVISOR, Last Rate: 50 mL/hr at 02/17/23 0746, 50 mL/hr at 02/17/23 0746 lidocaine (Uro-Jet) 2 % gel, , Topical, Once, Sarah Lehman-Estephanie, SOCCER REFEREE - ETHYLBENZENE CRACKING SUPERVISOR melatonin tablet 5 mg, 5 mg, Oral, Nightly PRN, Sarah Lehman-Estephanie, SOCCER REFEREE - ETHYLBENZENE CRACKING SUPERVISOR, 5 mg at 02/14/232108 nystatin (Mycostatin) 119105 UNIT/ML suspension 500,000 Units, 5 mL, Swish & Spit, TID, Sarah Lehman-Estephanie, SOCCER REFEREE - ETHYLBENZENE CRACKING SUPERVISOR, 500,000 Units at 02/16/232055 ondansetron ODT (Zofran-ODT) disintegrating tablet 4 mg, 4 mg, Oral, q8h PRN OR ondansetron (Zofran) injection 4 mg, 4 mg, IntraVENous, q6h PRN, Sarah Berrodin-Estephanie, SOCCER REFEREE - ETHYLBENZENE CRACKING SUPERVISOR pantoprazole (ProtoNix) EC tablet 40 mg, 40 mg, Oral, Nightly, 40 mg at 02/11/232132 OR pantoprazole (ProtoNix) injection 40 mg, 40 mg, IntraVENous, Nightly, Sarah Berrodin-Estephanie, SOCCER REFEREE - ETHYLBENZENE CRACKING SUPERVISOR, 40 mg at 02/16/232056 polyethylene glycol (PEG) 3350 (Miralax) packet 17 g, 17 g, Oral, BID, Sarah Berrodin-Estephanie, SOCCER REFEREE - ETHYLBENZENE CRACKING SUPERVISOR, 17 g at 02/16/232056 polyvinyl alcohol (Liquifilm Tears) 1.4 % ophthalmic solution, , Both Eyes, PRN, Sarah Berrodin-Estephanie, SOCCER REFEREE - ETHYLBENZENE CRACKING SUPERVISOR, Given at 02/13/23 133 senna-docusate sodium (Senokot-S) 8.6-50 MG tablet 2 tablet, 2 tablet, Oral, BID, Sarah Berrodin-Estephanie, SOCCER REFEREE - ETHYLBENZENE CRACKING SUPERVISOR, 2 tablet at 02/16/232056 sodium chloride 0.9 % infusion, 5-250 mL/hr, IntraVENous, PRN, Sarah Berrodin-Estephanie, SOCCER REFEREE - ETHYLBENZENE CRACKING SUPERVISOR, Stopped at 02/16/23 1534 sodium chloride 0.9% (NS) flush 5-40 mL, 5-40 mL, IntraVENous, q12h, Sarah Berrodin-Estephanie, SOCCER REFEREE - ETHYLBENZENE CRACKING SUPERVISOR, 10 mL at 02/13/23 2316 sodium chloride 0.9% (NS) flush 5-40 mL, 5-40 mL, IntraVENous, PRN, Sarah Berrodin-Estephanie, SOCCER REFEREE - ETHYLBENZENE CRACKING SUPERVISOR Continuous Infusions: lactated Ringer's, 50 mL/hr, Last Rate: 50 mL/hr (02/17/23 0746) Allergies: Patient has no allergy information on record. Review of Systems Unable to perform ROS: Acuity of condition Objective: Telemetry: Arrhythmia:N/A Physical Examination: Patient Vitals for the past 8 hrs: BP Temp Temp src Pulse Resp SpO2 02/17/23 0600 -- -- -- 74 17 94 % 02/17/23 0500 -- -- -- 69 15 91 % 02/17/23 0400 136/73 36.4 C (97.6 F) Temporal 66 14 93 % 02/17/23 0300 -- -- -- 76 16 92 % 02/17/23 0200 -- -- -- 66 11 93 % 02/17/23 0100 -- -- -- 67 13 93 % I/O last 3 completed shifts: In: 2567.5 (37 mL/kg) [I.V.:1810 (26.1 mL/kg); NG/GT:751; IV Piggyback:6.5] Out: 2280 (32.9 mL/kg) [Urine:2275 (0.9 mL/kg/hr); Blood:5] Weight: 69.3 kg General Physical Examination: General:young male HEENT:Normocephalic, atraumaticl CV: S1+S2, RRR, no MRG. Pulm:CTA b/l, unlabored Abdomen: Soft NT/ND. BS + Skin: Intact without ulcers, breakdowns or discoloration Extremities: bilateral leg edema Orthopedic limitation; N/A Pulses: Intact peripherally Carotid auscultation :No bruits Neurological Examination: Higher Functions: Mental Status Exam: Level of Alertness:awake male Orientation: Aphasic Memory: Aphasic Fund of Knowledge: Aphasic Language: Globalaphasia Dysarthria present Cranial Nerves: -II Visual acuity: abnormal, limited due to patient unable to perform exam -II Visualfields: poor reliability due to patient level of consciousness or structural limitation -III Pupils (~ 3 mm OD, 3 mm OU) equal, round, reactive to light -III-IV- Extraocular Movements: intact -Nystagmus not present -Saccades and pursuits normal -V Facial sensation: appears normal Corneal's Intact bilateral -VII Facial strength:abnormal -VIII Hearing: intact -IX-X - Gag reflex not assessed -X Palate: abnormal -XI Shoulder shrug: abnormal -XII Tongue movement: not participant MotorExamination: Tone after evaluation of 4 limbs, the following findings applied: Spastic R arm Decreased R leg Normal L arm and leg -Bulk: normal -Muscle Stretch afterevaluation of all limbs, and axial musculature the following findings applied: Drift: Present R arm and leg -Reflexes: after evaluation of 4 limbs, the following findings applied ; normal all limbs -Plantar responce: Equivocal Sensory appears normal butlimited reliability, Coordination: Arms limited reliability of exam/ poor participation Legs Limited reliability/poor participation Tremors not participant Gait abnormal, patient unable to walk due to acute circumstances / bed rest / safety concerns NIHSS 1a Level of consciousness: 0 1b. LOC questions: 2=Performs neither task correctly 1c. LOC commands: 2 2. Best Gaze: 1=partial gaze palsy 3. Visual: 0=No visual loss 4. Facial Palsy: 2=Partial paralysis (total or near total paralysis of the lower face) 5a. Motor left arm: 0=No drift, limb holds 90 (or 45) degrees for full 10 seconds 5b. Motor right arm: 4=No movement 6a. motor left le=No drift, limb holds 90 (or 45) degrees for full 10 seconds 6b Motor right le=No effort against gravity, limb falls 7. Limb Ataxia: 0=Absent 8. Sensory: 0=Normal; no sensory loss 9. Best Language: 3=Mute, global aphasia; no usable speech or auditory comprehension 10. Dysarthria: 2=Severe; patient speech is so slurred as to be unintelligible in the absence of or our of proportion to any dysphagia, or is mute/anarthric 11. Extinction and Inattention: 0=No abnormality 12. Distal motor function: 0=Normal Total: 17 ANCILLARY Last 24hrs Recent Results (from the past 24 hour(s)) Osmolality Collection Time: 02/16/23 8:17 AM Result Value Ref Range OSMOLALITY, SERUM 308 (H) 280 - 300 mOsm/kg Sodium Collection Time: 02/16/23 8:17 AM Result Value Ref Range SODIUM 143 135 - 145 mmol/L Hepatitis panel, acute Collection Time: 02/16/23 8:17 AM Result Value Ref Range HEPATITIS B VIRUS SURFACE AG Not Detected Not Detected HEPATITIS A VIRUS AB, IGM Not Detected Not Detected HEPATITIS B VIRUS CORE IGM AB Not Detected Not Detected HEPATITIS C VIRUS AB Not Detected Not Detected Osmolality Collection Time: 02/16/23 4:04 PM Result Value Ref Range OSMOLALITY, SERUM 308 (H) 280 - 300 mOsm/kg Sodium Collection Time: 02/16/23 4:04 PM Result Value Ref Range SODIUM 144 135 - 145 mmol/L CBC Collection Time: 02/17/23 12:09 AM Result Value Ref Range Auto WBC 12.3 (H) 3.6 - 10.7 10*3/uL RBC 4.88 4.40 - 5.90 10*6/uL Hemoglobin 14.5 13.0 - 18.0 g/dL Hematocrit 43.1 40.0 - 52.0 % MCV 88.3 80.0 - 98.0 fL MCH 29.8 26.0 - 34.0 pg MCHC 33.8 32.0 - 36.0 % RDW 14.0 11.5 - 14.5 % Platelets 303 140 - 440 10*3/uL MPV 10.1 7.4 - 12.4 fL Osmolality Collection Time: 02/17/23 12:09 AM Result Value Ref Range OSMOLALITY, SERUM 311 (H) 280 - 300 mOsm/kg Comprehensive metabolic panel Collection Time: 02/17/23 12:09 AM Result Value Ref Range SODIUM 144 135 - 145 mmol/L POTASSIUM 3.7 3.5 - 5.1 mmol/L CHLORIDE 109 (H) 98 - 107 mmol/L CARBON DIOXIDE 28 22 - 30 mmol/L ANION GAP 6 3 - 13 mmol/L UREA NITROGEN 34 (H) 9 - 20 mg/dL CREATININE 0.87 0.66 - 1.25 mg/dL GLUCOSE 99 70 - 100 mg/dL CALCIUM 9.0 8.4 - 10.4 mg/dL AST (SGOT) 55 (H) 15 - 46 U/L ALT 92 (H) 0 - 49 U/L ALKALINE PHOSPHATASE 91 38 - 126 U/L ALBUMIN 3.2 (L) 3.5 - 5.0 g/dL BILIRUBIN, TOTAL 1.1 0.2 - 1.3 mg/dL TOTAL PROTEIN 5.6 (L) 6.3 - 8.2 g/dL eGFR >90.0 >60.0 mL/min/1.73m*2 Bilirubin, direct Collection Time: 02/17/23 12:09 AM Result Value Ref Range BILIRUBIN, DIRECT 0.0 0.0 - 0.3 mg/dL Radiology: EKG 02/05/23:IMPRESSION: Sinus rhythm Borderline prolonged NH interval Nonspecific intraventricular conduction delay Probable inferior infarct, old Anterior ST depressions Nonspecific T abnormalities, lateral leads CTH 02/05/23:IMPRESSION: Large left MCA territory infarct with hyperdense left MCA. Sulcal effacement and mild mass effect on the left lateral ventricles. ASPECT SCORE= 0. 1 mm rightward midline shift measured at the subtle signal. No herniation. Subtle hyperdensity in the left parietal convexity could represent subtle subarachnoid hemorrhage, cortical petechial hemorrhage or apposition of luna matter. CTA head & neck 02/05/23: IMPRESSION: Perfusion CT demonstrates large perfusion abnormality consistent with large left MCA territory infarct. CTA with left M1 occlusion. Nonenhancement of the left intracranial and intracranial ICA is nonspecific and could be due to significant back pressure resulting in nonenhancement versus occlusion which could appear similar. The left TONI is patent. Moderate to severe focal stenosis of the right [employer]AN [employer]IST and mild to moderate focal stenosis of the left [employer]IST at the P1-P2 junctions as discussed. Cervical spondylosis. Approximately 10% stenosis of the right cervical ICA by NASCET criteria. NASCET criteria not applicable for the left ICA. Nonspecific frothy secretions in the right maxillary sinus which can be seen with acute sinusitis if in the appropriate clinical setting. CTH 02/06/23:IMPRESSION: Unchanged nonhemorrhagic left MCA territory infarct with stable mass effect. CTH 02/07/23: IMPRESSION: Redemonstrated subacute large left MCA territory infarct. No interval hemorrhagic conversion. Interval worsening of mass effect with increased effacement of the left lateral ventricle, 7 mm rightward midline shift measured at the septum pellucidum, mass effect on the left vertebral peduncle and partial effacement of the ambient cisterns ECHO 02/07/23:Left Ventricle: Left ventricle size is normal. Moderate basal septal thickening. Normal left ventricular systolic function. EF by 2D Simpsons Biplane is 58%. Normal wall motion. Diastolic dysfunction present with normal LVEF. Right Ventricle: Not well visualized. Right ventricle size is normal. Normal systolic function. Mitral Valve: Mild (1+) regurgitation. -mildly increased L atrium CESARIO 02/09/23: Left Atrium: Left atrium is moderately dilated. Left atrial appendage thrombus noted. It is large and fills most of the appendage. It is ~35x 15 mm in one plane. Can be seen throughout all imaging planes. There is protruding mobile portion of the thrombus into the left atrium which measures in length x width 10 mmx 4 mm. Left Ventricle: Left ventricle size is normal. Mildly increased wall thickness. Normal left ventricular systolic function. The EF by visual approximation is 60%. Normal wall motion. Interatrial Septum: No interatrial shunt visualized on color Doppler. Agitated saline study was negative. No PFO present. Aorta: Normal sized annulus and ascending aorta. There is mild atherosclerosis present in the aortic arch. There is mild atherosclerosis in the descending aorta. No significant valvular abnormalities. ASSESSMENT / PLAN/RECOMMENDATIONS: Left MCA ischemic stroke with symptomatic hemorrhagic transformation HT1 ETIOLOGY:EMBOLIC from large left atrial thrombus Cytotoxic brain edema Severe brain compression with mass effect 11-13mm R hemiparesis R hemineglect ?R hemianopia Global aphasia Dysphagia Facial droop CAD HPL Hx of [place] Hx of CABG Hx of 3rd degree AV block PLAN -PEG planned for today -aspirin to be started at 14 days (02/20) -OAC to be started in 4 weeks (03/17/23)--when OAC started, aspirin should be discontinued -hypercoagulation panel pending to be followed OP -goal Na normonatremia -holding aspirin for now -atorvastatin 40 -okay for DVT ppx with heparin 5000 TID - neuro checks every hour - primary to manage SBP, goal <160 -rehab evaluation -OOB, PT/OT -okay to go to the floor -will need OP neurology stroke follow up Family updated at the bedside. We will follow to ensure stability once transferred to the floor. Please keep regulation of sleep wake cycles and keep him moving OOB. Prepare for rehab STEW 35 minutes Nurse practitioner time with the patient/family in regards to review of chart, exam, further planning and updates of care PHQ2 Over the las 2 weeks, how often have you been bothered by the following problems; - Little interest or pleasure in doing things Deferred - Feeling down, depressed or hopeless Deferred - Final score: deferred, patient aphasic Patient seen and discussed with Dr. Flores ICU Progress Note Name: Catina Land : 1955(67 y.o.) Date: 02/17/23 Team: MICU Attending: Dr Pagan Subjective: Hospital Summary: Hospital Summary: 67 YO male W/PMH of CAD, [place], (s/p CABG & stenting), and HLD. Patient presented to [facility] ED on 02/05/23 after being found down on floor of bathroom covered in vomit by EMS. Family had called for a well check after being unable to contact the patient. Last known well time was sometime Tuesday02/03/23 in the AM. Patient was last seen by neighbors at that time. CT imaging showed L MCA infarct. Out of window for TNK, not amenable to thrombectomy d/t large established core infarct. He was admitted to T2 ICU. Cardiology following d/t NSTEMI med manage with beta courtney & statin. He was briefly on 3% NaCl for cerebral edema & mass effect. Dobhoff in place for nutrition d/t ongoing speech therapy for dysphagia. 02/06 CT head showed L MCA territory infarct w/ stable mass effect. BP overnight 150-170. Right side flaccid following commands L side. Code status changed to Full code d/t improvement. 3% NS @ 50ml/h 02/07 Increased SBP 160-190, requiring multiple PRN meds. 3% NaCl @ 50ml/h. Follows simple commands on left right flaccid 02/08 Ongoing hypertension overnight SBP 180-210, multiple PRN meds given. + right facial droop and R hemiparesis. Able to follow basic commands w/ left upper and lower extr. CTH with increased Cytotoxic edema and compression 02/09 - Increased LOC - increased agitation - starting PO antihypertensive meds - CESARIO completed - Large AA thrombus 02/10 - Pulled out Dobhoff overnight - Surgery consulted for PEG tube per Neuro - surgery will likely place next week if condition allows-- Awaiting MRI today 02/11 - MRI reviewed per neuro with increased swelling - this AM with decrease in LOC compared to exam 02/10 - will start Mannitol every 8 hours with serum Osmo prior to administration -Neuro Crit Care is holding on AC at this time d/t increased risk of bleeding. Family to discuss life support orders 02/12 Improved mentation. Mannitol held / Osmolality 320. 02/13 Improved mentation, follows commands, interactive. Bms x 5 Osm 331 and Na 156 Increased free water 02/16 PEG placed. Ok for [facility] floor Interval Events: Uneventful night. New Leukocytosis instrumentation post Peg vs infectious process. High risk for Aspiration ongoing. T-max 36.4 O2 sat 91-94% on room air. NG removed and Tube feed started via PEG Scheduled Meds: amLODIPine, 10 mg, Oral, Daily [Held by provider] aspirin, 81 mg, Per G Tube, Daily atorvastatin, 40 mg, Per G Tube, Daily bisacodyl, 10 mg, Rectal, Daily carvedilol, 25 mg, Per G Tube, BID WC heparin, 5,000 Units, SubCUTAneous, 3 times per day lidocaine, , Topical, Once nystatin, 5 mL, Swish & Spit, TID pantoprazole, 40 mg, Oral, Nightly Or pantoprazole, 40 mg, IntraVENous, Nightly polyethylene glycol (PEG) 3350, 17 g, Oral, BID senna-docusate sodium, 2 tablet, Oral, BID sodium chloride 0.9%, 5-40 mL, IntraVENous, q12h Continuous Infusions: Objective: Last Vitals: BP MAP 136/73 (02/17/23 0400) 92 (02/17/23399) Arterial BP MAP Temp 36.4 C (97.6 F) (02/17/23399) Pulse 74 (02/17/23599) Resp 17 (02/17/23599) SpO2 94 % (02/17/23599) Weight 69.3 kg (152 lb 12.5 oz) (02/12/23599) BMI Body mass index is 25.42 kg/m . I/O: 02/16 0700 - 02/17 0659 In: 2238.5 [I.V.:1810] Out: 1055 [Urine:1050] Ventilator: NA Oxygen Delivery: O2 Flow Rate (L/min): 1 L/min Invasive Lines / Tubes / Drains: Peripheral IV 02/07/23 Anterior;Proximal;Right Forearm (Active) Number of days: 9 NG/OG Tube Nasogastric Right nostril (Active) Number of days: 10 Gastrostomy/Enterostomy PEG - Percutaneous endoscopic gastrostomy (PEG) 18 Fr. LUQ (Active) Number of days: 0 Male External Urinary Catheter Medium (Active) Number of days: 11 Central Line Indication: NA - patient does not have a central line Morales Indications: NA - patient does not have a Morales catheter Restraints: Restraints Non-Violent Or Non-Self Destructive Feb 10, 2023 5:17 Am Edt NA - patient is not restrained. Wounds: Constitutional: General Appearance []WDWN []Obese []Cachectic []Thin [x]Ill Eyes: Inspection of Pupils/Irises Pupils round and react: [x]Yes []No Sclera: []Icteric [x]Non-Icteric Inspection of Conjunctiva/Lids Conjunctiva: []Injected [x]Non-Injected Lids: [x]Intact []Lesion Present ENT/Mouth: External Inspection of ears/nose [x] Normal [] Scar/Lesion/Mass Inspection of teeth/lips/gums Dentition: [x][place] Teeth []Dentures Lips/Gums: [x]Intact []Lesion Present Mucosa: [x][place] [x]Moist []Dry Neck: External Appearance Overall Appearance: [x]Normal []Lesion/Mass/Crepitus Present Trachea midline: [x]Yes []No Thyroid [x]Normal []Enlarged []Tender []Mass []Absent Respiratory: Respiratory effort []Labored [x]Non-Labored [] Mechanically-Ventilated Auscultation []Clear []Crackles []Wheezes [x][place] Cardiovascular: Auscultation Rate: [x]Regular []Irregular []Tachycardia []Bradycardia Rhythm: [x]Regular []Irregular Murmur: []Present [x]Absent Extremities Peripheral Edema: []Present [x]Absent Varicosities: []Present [x]Absent Gastrointestinal: Abdomen Palpation: [x]Soft []Firm []Tender []Non-Tender []Distended [x]Non-distended Mass: []Present [x]Absent Bowel Sounds: [x]Present []Absent Hernia: []Present [x]Absent Liver/Spleen: []Hepatosplenomegaly []Organomegaly Absent PEG clamped abdominal binder intact Musculoskeletal: Inspection of Digits and Nails Cyanosis: []Present [x]Absent Clubbing: []Present [x]Absent Ischemia: []Present [x]Absent Infection: []Present [x]Absent Extremities GARCIA Equally: Except ([x]RUE [x]RLE []LUE []LLE) Strength/Tone: Intact and Normal ([]RUE []RLE [x]LUE [x]LLE) Skin: Inspection [x]Normal []Rash []Lesion []Ulcer Palpation [x]Warm []Cool [x]Dry []Clammy []Nodules []Induration []Skin-tightening Cap-Refill: [x] <3 sec [] >3 seconds (delayed) Ongoing oral debris and Thrush on tongue Neurologic: GCS EYE: 4 - Opens spontaneously GCS MOTOR: 6 - Obeys commands for movement GCS VERBAL: 5 - Oriented to person, place, time Total GCS: 15 [x] Sensation grossly intact Psych: Mental Status Alert: [x]Yes [] No Oriented: []x0 []X1 []X2 [x]x3 Mood/Affect [x]Normal []Flat []Agitated []Depressed []Anxious []Calm []Sedated []NAD [facility] within last 24 hours- BMP: Recent Labs 02/15/23 0000 02/15/23 0809 02/16/23 0010 02/16/23 0817 02/16/23 1604 02/17/23 000 NA 146* < > 145 143 144 144 K 3.5 -- 3.7 -- -- 3.7 CL 111* -- 109* -- -- 109* CO2 33* -- 32* -- -- 28 BUN 34* -- 30* -- -- 34* CREATININE 0.88 -- 0.80 -- -- 0.87 CALCIUM 8.6 -- 8.6 -- -- 9.0 MG 2.2 -- -- -- -- -- < > = values in this interval not displayed. LFTs: Recent Labs 02/15/23 0000 02/16/23 0010 02/17/23 0009 AST 55* 66* 55* ALT 87* 102* 92* PROT 5.4* 5.6* 5.6* ALBUMIN 3.1* 3.1* 3.2* BILITOT 0.7 0.6 1.1 ALKPHOS 80 79 91 Glucose: Recent Labs 02/15/23 0000 02/16/23 0010 02/17/23 000 GLUCOSE 125* 113* 99 Procal: No results for input(s): PROCAL in the last 72 hours. CBC: Recent Labs 02/15/23 0000 02/16/23 0010 02/17/23 0009 WBC 10.2 9.6 12.3* HGB 14.4 14.6 14.5 HCT 42.9 43.3 43.1 PLT 289 296 303 MCV 88.8 88.3 88.3 RDW 14.1 14.0 14.0 ABGs: No results for input(s): PHART, MUS3QPD, PO2ART, GBZ4RHX, SO2ART, [id number] in the last 72 hours. Lactic Acid: No results for input(s): LACTATE in the last 72 hours. INR: Recent Labs 02/16/23 0010 INR 1.1 Cardiac Injury Profile: No results for input(s): CKTOTAL, CKMB, TROPONINI in the last 72 hours. Labs in Last 3 months: Lab Results Component Value Date INR 1.1 02/16/2023 Microbiology- Urine Cx: No results found for: URINECX Blood Cx: No results found for: BLOODCX Sputum Cx: No results found for: RESPCULT Gram Stain: No results found for: LABGRAM PNA PCR: No results found for: HUMANMETAPNE COVID19: No results found for: COVID19 Legionella Ag: No results found for: LEGIONELLAPN Strep Ag: No results for input(s): STREPPNEUMO in the last 72 hours. Imaging- CTH 02/05/23:IMPRESSION: Large left MCA territory infarct with hyperdense left MCA. Sulcal effacement and mild mass effect on the left lateral ventricles. ASPECT SCORE= 0. 1 mm rightward midline shift measured at the subtle signal. No herniation. Subtle hyperdensity in the left parietal convexity could represent subtle subarachnoid hemorrhage, cortical petechial hemorrhage or apposition of luna matter. CTA head & neck 02/05/23: IMPRESSION: Perfusion CT demonstrates large perfusion abnormality consistent with large left MCA territory infarct. CTA with left M1 occlusion. Nonenhancement of the left intracranial and intracranial ICA is nonspecific and could be due to significant back pressure resulting in nonenhancement versus occlusion which could appear similar. The left TONI is patent. Moderate to severe focal stenosis of the right [employer]IST and mild to moderate focal stenosis of the left [employer] LO[employer] SPECIALIST at the P1-P2 junctions as discussed. Cervical spondylosis. Approximately 10% stenosis of the right cervical ICA by NASCET criteria. NASCET criteria not applicable for the left ICA. Nonspecific frothy secretions in the right maxillary sinus which can be seen with acute sinusitis if in the appropriate clinical setting. CTH 02/06/23:IMPRESSION: Unchanged nonhemorrhagic left MCA territory infarct with stable mass effect. CTH 02/07/23: IMPRESSION: Redemonstrated subacute large left MCA territory infarct. No interval hemorrhagic conversion. Interval worsening of mass effect with increased effacement of the left lateral ventricle, 7 mm rightward midline shift measured at the septum pellucidum, mass effect on the left vertebral peduncle and partial effacement of the ambient cisterns ECHO 02/07/23:Left Ventricle: Left ventricle size is normal. Moderate basal septal thickening. Normal left ventricular systolic function. EF by 2D Simpsons Biplane is 58%. Normal wall motion. Diastolic dysfunction present with normal LVEF. Right Ventricle: Not well visualized. Right ventricle size is normal. Normal systolic function. Mitral Valve: Mild (1+) regurgitation. -mildly increased L atrium CESARIO 02/09/23: CESARIO with Large AA thrombus - filling the whole appendage and protruding into the the left atrium MRI 02/10 IMPRESSION: Worsening cerebral edema involving the distribution of the right MCA with significant compression of the left lateral ventricle and brain stem and xiomy as well as a left to right midline shift of approximately 15 mm. No evidence of hemorrhagic transformation. 02/11 CT head FINDINGS: Evolving left MCA territory infarct with confluent low attenuation. There is persistent shift of midline from the left to the right now measuring 12 mm with previous measurement of [address] head 02/07/2023 and 15 mm on MRI brain 02/10/2023. There is mass effect upon the left lateral ventricle as well as the xiomy and midbrain. The right lateral ventricle is distended and dilated representing a change compared to prior CT exam. Increase in left hemispheric edema as there is effacement of the sulci throughout the left hemisphere. No definite hemorrhagic transformation. Atherosclerotic calcifications are present. Port ventricle is patent. There appears be some mass effect upon the basal cistern. Empty sella. Mucosal wall thickening of the right maxillary sinus and a few ethmoid air cells. Globes are symmetric. IMPRESSION: Evolution of LEFT MCA territory infarcts. Shift of midline from the left to right of at least 12 mm (15 mm on MRI) with new enlargement/dilation of the right lateral ventricle. Increase in left hemispheric edema with effacement of sulci. Persistent mass effect upon the midbrain and xiomy. 02/15/23 CT head FINDINGS: Evolving left MCA territory infarct with confluent low attenuation. There is persistent shift of midline from the left to the right measuring 9mm, previously 12 mm There is mass effect upon the left lateral ventricle as well as the xiomy and midbrain. The right lateral ventricle is distended and dilated, unchanged. Stable left hemispheric edema is effacement of the sulci. No definite hemorrhagic transformation. Atherosclerotic calcifications are present. There appears be some mass effect upon the basal cistern. Empty sella. Mucosal wall thickening of the right maxillary sinus and a few ethmoid air cells. Globes are symmetric. IMPRESSION: Evolution of LEFT MCA territory infarct. Shift of midline from the left to the right of at least 9mm, as above 02/15/23 CXR FINDINGS: An enteric tube is present coursing below the hemidiaphragm but excluded from [id number]. Median sternotomy wires and clips are present. Cardiac monitoring wires and leads are present. Trachea is midline. The heart is not enlarged The costophrenic angles are sharp. No confluent consolidation. IMPRESSION: Interval resolution of pulmonary vascular congestion. 02/16/23 US Abdomen FINDINGS: Pancreas: The pancreas is obscured by bowel gas Liver: Normal echogenicity, size and contours. No focal lesion identified. Gallbladder: Normal. Per the biochemistry technologist, the sonographic Fuentes's sign was negative. Bile ducts: No intrahepatic and extrahepatic biliary dilatation Common bile duct: 2 mm Right kidney: Normal size measuring 10.0 cm. Normal parenchymal echogenicity without solid mass or hydronephrosis. Simple superior pole cyst measuring 2.1 cm. Ascites: None IMPRESSION: 1. Poorly visualized pancreas. Otherwise, normal ultrasound of the abdomen Assessment and Plan: Principal Problem: Acute ischemic stroke (HCC) Active Problems: Arterial ischemic stroke, MCA (middle cerebral artery), left, acute (HCC) Brain compression (CMS/HCC) (HCC) Cerebral edema (CMS/HCC) (HCC) Troponin level elevated Left MCA Ischemic Stroke Cytotoxic edema Brain Compression Etiology: Embolic--> large Left Atrial thrombus -TTE KATELYNN--> large thrombus filling the whole appendage and protruding into the left atrium--> -goal Na 138-150, while Osmolarity is high -SBP <160 -Heparin for DVT Prophy -ASA 81mg restart per Neuro Critical care -DOAC per Neuro Critical care -Atorvastatin 40mg daily --> NG -C/w PT/OT/Speech - placement vs rehab - appreciate recs -Neuro Checks Q4H -Fall precautions/ HOB >30 degrees Leukocytosis -WBC 12.3 -Instrumentation vs Infectious process -Afebrile overnight -Trend labs HTN/HPL CAD NSTEMI on Admit Elevated troponin (7 on admission) HX [place] s/p CABG Hx 3rd Degree Heart Block -SBP <160 -Continue carvedilol and Norvasc -->Continue PRN Labetalol and Hydralazine -Heparin for DVT prophy -Continue beta courtney and statin -Cardiology consulted --> no interventions 2/2 size of MCA stroke, increased risk of bleeding and prognosis Elevated LFTs -SGOT 66, ALT 102, total bili 1.0--> stable -Trend labs -US abdomen : no acute Process Debility Right hemiparesis Right facial Droop Global aphasia Dysphagia -Q2H oral care with mouth moistener -High risk aspiration --> maintain aspiration precautions -PT/OT eval and treat -Up to chair daily -PEG --> tube feeds -Social work consult for rehab/SNF Malnutrition -PEG--> tube feed Tobacco use -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 -Currently will be hospitalized without opportunity to smoke for extended period FEN -trend labs -replace lytes PRN -Tube feed at goal -Strict I/O -Continue bowel regimen --> miralax and senna Code Status Full code GI Prophylaxis: Pantoprazole IV DVT Prophylaxis: Heparin SQ Discussed with Dr Pagan Disposition: OK for [facility] Time spent preparing to see the patient, obtaining/reviewing separately obtained history, completing an appropriate medical examination of the patient, ordering medications/tests/procedures, documenting clinical information on the EMR, and/or coordinating care is a subsequent visit: 50 minutes (Level III). Disposition: Transfer to [facility] Associated attestation - Sonia Pagan MD - 02/17/2023 6:06 PM EDT I examined Mr. Jos Robertson independently and discussed the management plan with NAVDEEP Carranza. Please see her note for details. 67-year-old male with history of coronary artery disease status post CABG now admitted with stroke right-sided weakness dysphagia, NSTEMI and L atrial clot. He had cerebral edema that responded well to hypertonic saline. Encephalopathy has improved. He underwent PEG placement on on February 16 and will start tube feeds after clearance from IR. Blood pressure is acceptable. Left atrial clot: We will start aspirin on February 20 that will be switched to oral anticoagulant on March 17. He remains on atorvastatin. His condition is stable for transfer to medicine service. Physical Therapy Facility/Department: T2 Physical Therapy Daily Treatment Note NAME: Catina Land : 1955 Date of Service: 02/16/2023 Discharge Recommendations: IP Rehab PT Equipment Recommendations Equipment Needed: No Other: tbd Assessment Assessment: Pt progressing well towards goals, none met at this time. He was Max A x2 for bed mobility, transfers, and limited ambulation. Cues for all sequencing, able to follow one step commands well. He is at high risk for falls. Will continue recommending IP rehab at discharge. Performance Deficits/Impairments: Decreased functional mobility , Decreased strength, Decreased balance, Decreased endurance, Decreased ADL status Decision Making: Medium Complexity Requires PT Follow-Up: Yes Patient Diagnosis(es): The primary encounter diagnosis was Acute ischemic stroke (HCC). Diagnoses of Elevated troponin, Abnormal ECG, Cerebral edema (CMS/HCC) (HCC), and Leg edema, right were also pertinent to this visit. has a past medical history of CAD (coronary artery disease), History of coronary artery bypass graft x 2 (04/2014), Hyperlipidemia, [place], old (03/28/2014), Pneumonia, Presence of stent in coronary artery (03/2014), and Third degree AV block (CMS/HCC) (HCC) (03/28/2014). has a past surgical history that includes Coronary artery bypass graft (04/2014) and Coronary angioplasty (03/28/2014). Restrictions Restrictions/Precautions Restrictions/Precautions: Fall Risk, General Precautions, Modified Diet Required Braces or Orthoses?: No Lower Extremity Weight Bearing Restrictions Right Lower Extremity Weight Bearing: Weight Bearing As Tolerated Left Lower Extremity Weight Bearing: Weight Bearing As Tolerated Position Activity Restriction Other position/activity restrictions: PIV, NG tube, tele, condom cath, HOB 30 degrees Vision/Hearing Subjective General Chart Reviewed: Yes Patient Assessed for Rehabilitation Services: Yes Response To Previous Treatment: Patient unable to report, no changes reported from family or staff Family / Caregiver Present: No Diagnosis: acute ischemic stroke, elevated troponin, abnormal ECG Follows Commands: Within Functional Limits Subjective Subjective: Pt supine in bed; agreeable to PT session. Cleared by nursing. Aphasic, able to answer yes/no questions with a thumbs up or down best to determine needs. Cognition/Orientation Overall Cognitive Status: Exceptions Arousal/Alertness: Appropriate responses to stimuli Following Commands: Follows one step commands with repetition, Follows one step commands with increased time Attention Span: Attends with cues to redirect, Difficulty attending to directions Safety Judgement: Decreased awareness of need for assistance Initiation: Requires cues for some Sequencing: Requires cues for some Overall Orientation Status: Impaired Objective Bed mobility Supine to Sit: Maximum assistance, 2 Person assistance Scooting: Maximal assistance Comment: HOB elevated, use of glide sheet. Pt able to adjust LUE and LLE to shift to R side of bed. Denies dizziness with sitting. Slight pushing to the R, able to correct with RUE appoximation on LUE. Transfers Sit to Stand: Maximum Assistance, 2 Person Assistance Stand to sit: Maximum Assistance, 2 Person Assistance Comment: EOB x1 with Max A x2, Cues for hand placement and sequencing. Full Arias knee blocking to prevent buckling. Chair x1 with Max A for dependent pericare, extremely forward flexed posture and R lateral lean, poor tolerance. Ambulation Ambulation: Yes Ambulation 1 Surface 1: Level tile Device 1: Hand held assist (arm in arm) Assistance 1: Maximum assistance, x2 person Quality of Gait 1: instability throughout all phases, slow anaya Quality of Gait Comment 1: able to minimally advance LLE, unable to advance RLE without active PT assist. Max A x2 to maintain balance, forward flexed posture. Poor tolerance to prolonged standing. Plan Times per Week: 3-5 Plan Weeks: 2 Current Treatment Recommendations: Strengthening, ROM, Balance Training, Gait Training, Functional Mobility Training, Transfer Training, Safety Education & Training, Equipment Evaluation, Education, & procurement, Patient/Caregiver Education & Training, Neuromuscular Re-education Safety Safety Devices Safety Devices in Place: Yes Type of Devices: Gait belt, Left in chair, Call light within reach, Nurse notified, All fall risk precautions in place, Patient at risk for falls, Chair alarm in place Restraints Restraints Initially in Place: No AM-PAC Score AM-PAC Inpatient Mobility Raw Score: 7 Mobility Inpatient CMS G-Code Modifier: CM Goals Encounter Problems Encounter Problems (Active) Mobility Patient will ambulate 25 feet with CGA and stephanie-walker or pyramid cane in order to improve safety and independence with mobility. (Progressing) Start: 02/07/23 Expected End: 02/21/23 Pain - Adult Transfers Patient will perform bed mobility with SBA in order to improve independence and prepare for out of bed mobility. (Progressing) Start: 02/07/23 Expected End: 02/21/23 Patient will complete functional transfer bed to/from chair with SBA in order to prepare for ambulation. (Progressing) Start: 02/07/23 Expected End: 02/21/23 Patient will complete sit to stand transfer with SBA in order to improve safety and prepare for out of bed mobility. (Progressing) Start: 02/07/23 Expected End: 02/21/23 Education Education Given To: Patient Education Provided: PT Role, Plan of Care, Family Education, General Safety, Transfer Training Education Method: Verbal Barriers to Learning: Cognition Education Outcome: Continued education needed Therapy Time Individual Co-treatment Time In 930 Time Out 1008 Minutes 37 Timed Code Treatment Minutes: 32 Minutes (2 FA) Variance: 5 (doctors in room) This therapist was wearing an appropriate mask, goggles, and gloves for entire patient encounter. Marycarmen Kolb PT Speech-Language Pathology Patient is unavailable for ST, being transferred for PEG tube placement. ST will re-attempt as schedule permits. Eileen Gaytan MA CCC-SUPERVISOR DEHYDROGENATION ICU Transfer Checklist Transfer Med Reconciliation (resume home meds if able, convert to PO if able) Complete Antibiotics (name, indication, duration, convert to PO if able) None Steroid (indication, duration, convert to PO if able) None Anticipated [place] Medications (ICU initiated) or Dose Changes and Indication Yes, addressed in today's progress note Permanently Discontinued Home Medications and Reason for medication contraindication No Morales Catheter (please remove if able. Note: place DC order) No Central Line (please remove if able. Note: place DC order) No Transfer Discussed with: Dr Ibarra If additional questions for ICU team within 24 hours of ICU transfer, page [phone] for clarifications. ICU Progress Note Name: Catina Land : 1955(67 y.o.) Date: 02/16/23 Team: MICU Attending: Dr Pagan Subjective: Hospital Summary: 67 YO male W/PMH of CAD, [place], (s/p CABG & stenting), and HLD. Patient presented to [facility] ED on 02/05/23 after being found down on floor of bathroom covered in vomit by EMS. Family had called for a well check after being unable to contact the patient. Last known well time was sometime Tuesday02/03/23 in the AM. Patient was last seen by neighbors at that time. CT imaging showed L MCA infarct. Out of window for TNK, not amenable to thrombectomy d/t large established core infarct. He was admitted to T2 ICU. Cardiology following d/t NSTEMI med manage with beta courtney & statin. He was briefly on 3% NaCl for cerebral edema & mass effect. Dobhoff in place for nutrition d/t ongoing speech therapy for dysphagia. 02/06 CT head showed L MCA territory infarct w/ stable mass effect. BP overnight 150-170. Right side flaccid following commands L side. Code status changed to Full code d/t improvement. 3% NS @ 50ml/h / Increased SBP 160-190, requiring multiple PRN meds. 3% NaCl @ 50ml/h. Follows simple commands on left right flaccid / Ongoing hypertension overnight SBP 180-210, multiple PRN meds given. + right facial droop and R hemiparesis. Able to follow basic commands w/ left upper and lower extr. CTH with increased Cytotoxic edema and compression 02/09 - Increased LOC - increased agitation - starting PO antihypertensive meds - CESARIO completed - Large AA thrombus 02/10 - Pulled out Dobhoff overnight - Surgery consulted for PEG tube per Neuro - surgery will likely place next week if condition allows-- Awaiting MRI today 02/11 - MRI reviewed per neuro with increased swelling - this AM with decrease in LOC compared to exam 02/10 - will start Mannitol every 8 hours with serum Osmo prior to administration -Neuro Crit Care is holding on AC at this time d/t increased risk of bleeding. Family to discuss life support orders 02/12 Improved mentation. Mannitol held 12/09 Osmolality 320. 02/13 Improved mentation, follows commands, interactive. Bms x 5 Osm 331 and Na 156 Increased free water Interval Events: Patient with uneventful night. Plans for PEG today per general surgery. SBP 150-180 overnight. T-Max 36.6. Na 145, Osmolality 308. Plans for PEG placement today. Scheduled Meds: amLODIPine, 10 mg, Oral, Daily [Held by provider] aspirin, 81 mg, Per G Tube, Daily atorvastatin, 40 mg, Per G Tube, Daily bisacodyl, 10 mg, Rectal, Daily carvedilol, 25 mg, Per G Tube, BID WC heparin, 5,000 Units, SubCUTAneous, 3 times per day lidocaine, , Topical, Once nystatin, 5 mL, Swish & Spit, TID pantoprazole, 40 mg, Oral, Nightly Or pantoprazole, 40 mg, IntraVENous, Nightly polyethylene glycol (PEG) 3350, 17 g, Oral, BID senna-docusate sodium, 2 tablet, Oral, BID sodium chloride 0.9%, 5-40 mL, IntraVENous, q12h Continuous Infusions: lactated Ringer's, 50 mL/hr, Last Rate: 50 mL/hr (02/15/232122) Objective: Last Vitals: BP MAP 137/73 (02/16/23 0800) 92 (02/16/23799) Arterial BP MAP Temp 36.5 C (97.7 F) (02/16/23 08) Pulse 70 (02/16/23 08) Resp 12 (02/16/23799) SpO2 (!) 89 % (02/16/23799) Weight 69.3 kg (152 lb 12.5 oz) (02/12/23 0600) BMI Body mass index is 25.42 kg/m . I/O: 02/15 0700 - 02/16 0659 In: 1575 [I.V.:579] Out: 1675 [Urine:1675] Ventilator: NA Oxygen Delivery: O2 Flow Rate (L/min): 1 L/min Invasive Lines / Tubes / Drains: Peripheral IV 02/07/23 Anterior;Proximal;Right Forearm (Active) Number of days: 8 NG/OG Tube Nasogastric Right nostril (Active) Number of days: 9 Male External Urinary Catheter Medium (Active) Number of days: 10 Central Line Indication: NA - patient does not have a central line Morales Indications: NA - patient does not have a Morales catheter Restraints: Restraints Non-Violent Or Non-Self Destructive Feb 10, 2023 5:17 Am Edt NA - patient is not restrained. Wounds: Constitutional: General Appearance []WDWN []Obese []Cachectic []Thin [x]Ill Eyes: Inspection of Pupils/Irises Pupils round and react: [x]Yes []No Sclera: []Icteric [x]Non-Icteric Inspection of Conjunctiva/Lids Conjunctiva: []Injected [x]Non-Injected Lids: [x]Intact []Lesion Present ENT/Mouth: External Inspection of ears/nose [x] Normal [] Scar/Lesion/Mass Inspection of teeth/lips/gums Dentition: [x][place] Teeth []Dentures Lips/Gums: [x]Intact []Lesion Present Mucosa: [x][place] [x]Moist []Dry Neck: External Appearance Overall Appearance: [x]Normal []Lesion/Mass/Crepitus Present Trachea midline: [x]Yes []No Thyroid [x]Normal []Enlarged []Tender []Mass []Absent Respiratory: Respiratory effort []Labored [x]Non-Labored [] Mechanically-Ventilated Auscultation []Clear []Crackles []Wheezes [x][place] Cardiovascular: Auscultation Rate: [x]Regular []Irregular []Tachycardia []Bradycardia Rhythm: [x]Regular []Irregular Murmur: []Present [x]Absent Extremities Peripheral Edema: []Present [x]Absent Varicosities: []Present [x]Absent Gastrointestinal: Abdomen Palpation: [x]Soft []Firm []Tender []Non-Tender []Distended [x]Non-distended Mass: []Present [x]Absent Bowel Sounds: [x]Present []Absent Hernia: []Present [x]Absent Liver/Spleen: []Hepatosplenomegaly []Organomegaly Absent Musculoskeletal: Inspection of Digits and Nails Cyanosis: []Present [x]Absent Clubbing: []Present [x]Absent Ischemia: []Present [x]Absent Infection: []Present [x]Absent Extremities GARCIA Equally: Except ([x]RUE [x]RLE []LUE []LLE) Strength/Tone: Intact and Normal ([]RUE []RLE [x]LUE [x]LLE) Skin: Inspection [x]Normal []Rash []Lesion []Ulcer Palpation [x]Warm []Cool [x]Dry []Clammy []Nodules []Induration []Skin-tightening Cap-Refill: [x] <3 sec [] >3 seconds (delayed) Ongoing oral debris and Thrush on tongue Neurologic: GCS EYE: 4 - Opens spontaneously GCS MOTOR: 6 - Obeys commands for movement GCS VERBAL: 5 - Oriented to person, place, time Total GCS: 15 [x] Sensation grossly intact Psych: Mental Status Alert: [x]Yes [] No Oriented: []x0 []X1 []X2 [x]x3 Mood/Affect [x]Normal []Flat []Agitated []Depressed []Anxious []Calm []Sedated []NAD [facility] within last 24 hours- BMP: Recent Labs 02/14/23 0001 02/14/23 0828 02/15/23 0000 02/15/23 0809 02/15/23 1633 02/16/23 0010 02/16/23 0817 NA 149* < > 146* < > 143 145 143 K 3.7 -- 3.5 -- -- 3.7 -- CL 114* -- 111* -- -- 109* -- CO2 30 -- 33* -- -- 32* -- BUN 40* -- 34* -- -- 30* -- CREATININE 0.90 -- 0.88 -- -- 0.80 -- CALCIUM 8.6 -- 8.6 -- -- 8.6 -- MG -- -- 2.2 -- -- -- -- < > = values in this interval not displayed. LFTs: Recent Labs 02/14/23 0001 02/15/23 0000 02/16/23 0010 AST 64* 55* 66* ALT 93* 87* 102* PROT 5.7* 5.4* 5.6* ALBUMIN 3.1* 3.1* 3.1* BILITOT 0.8 0.7 0.6 ALKPHOS 79 80 79 Glucose: Recent Labs 02/14/23 0001 02/15/23 0000 02/16/23 0010 GLUCOSE 110* 125* 113* Procal: No results for input(s): PROCAL in the last 72 hours. CBC: Recent Labs 02/14/23 0001 02/15/23 0000 02/16/23 0010 WBC 8.8 10.2 9.6 HGB 15.0 14.4 14.6 HCT 44.5 42.9 43.3 PLT 286 289 296 MCV 89.2 88.8 88.3 RDW 14.0 14.1 14.0 ABGs: No results for input(s): PHART, NEG4SQZ, PO2ART, UDL3FHY, SO2ART, B8OGPUEA in the last 72 hours. Lactic Acid: No results for input(s): LACTATE in the last 72 hours. INR: Recent Labs 02/16/23 0010 INR 1.1 Cardiac Injury Profile: No results for input(s): CKTOTAL, CKMB, TROPONINI in the last 72 hours. Labs in Last 3 months: Lab Results Component Value Date INR 1.1 02/16/2023 Microbiology- Urine Cx: No results found for: URINECX Blood Cx: No results found for: BLOODCX Sputum Cx: No results found for: RESPCULT Gram Stain: No results found for: LABGRAM PNA PCR: No results found for: HUMANMETAPNE COVID19: No results found for: COVID19 Legionella Ag: No results found for: LEGIONELLAPN Strep Ag: No results for input(s): STREPPNEUMO in the last 72 hours. Imaging- EKG 02/05/23:IMPRESSION: Sinus rhythm Borderline prolonged NH interval Nonspecific intraventricular conduction delay Probable inferior infarct, old Anterior ST depressions Nonspecific T abnormalities, lateral leads CTH 02/05/23:IMPRESSION: Large left MCA territory infarct with hyperdense left MCA. Sulcal effacement and mild mass effect on the left lateral ventricles. ASPECT SCORE= 0. 1 mm rightward midline shift measured at the subtle signal. No herniation. Subtle hyperdensity in the left parietal convexity could represent subtle subarachnoid hemorrhage, cortical petechial hemorrhage or apposition of luna matter. CTA head & neck 02/05/23: IMPRESSION: Perfusion CT demonstrates large perfusion abnormality consistent with large left MCA territory infarct. CTA with left M1 occlusion. Nonenhancement of the left intracranial and intracranial ICA is nonspecific and could be due to significant back pressure resulting in nonenhancement versus occlusion which could appear similar. The left TONI is patent. Moderate to severe focal stenosis of the right COMMERCIAL LOAN SPECIALIST and mild to moderate focal stenosis of the left COMMERCIAL LOAN SPECIALIST at the P1-P2 junctions as discussed. Cervical spondylosis. Approximately 10% stenosis of the right cervical ICA by NASCET criteria. NASCET criteria not applicable for the left ICA. Nonspecific frothy secretions in the right maxillary sinus which can be seen with acute sinusitis if in the appropriate clinical setting. CTH 02/06/23:IMPRESSION: Unchanged nonhemorrhagic left MCA territory infarct with stable mass effect. CTH 02/07/23: IMPRESSION: Redemonstrated subacute large left MCA territory infarct. No interval hemorrhagic conversion. Interval worsening of mass effect with increased effacement of the left lateral ventricle, 7 mm rightward midline shift measured at the septum pellucidum, mass effect on the left vertebral peduncle and partial effacement of the ambient cisterns ECHO 02/07/23:Left Ventricle: Left ventricle size is normal. Moderate basal septal thickening. Normal left ventricular systolic function. EF by 2D Simpsons Biplane is 58%. Normal wall motion. Diastolic dysfunction present with normal LVEF. Right Ventricle: Not well visualized. Right ventricle size is normal. Normal systolic function. Mitral Valve: Mild (1+) regurgitation. -mildly increased L atrium CESARIO 02/09/23: CESARIO with Large AA thrombus - filling the whole appendage and protruding into the the left atrium MRI 02/10 IMPRESSION: Worsening cerebral edema involving the distribution of the right MCA with significant compression of the left lateral ventricle and brain stem and xiomy as well as a left to right midline shift of approximately 15 mm. No evidence of hemorrhagic transformation. 02/11 CT head FINDINGS: Evolving left MCA territory infarct with confluent low attenuation. There is persistent shift of midline from the left to the right now measuring 12 mm with previous measurement of [address] head 02/07/2023 and 15 mm on MRI brain 02/10/2023. There is mass effect upon the left lateral ventricle as well as the xiomy and midbrain. The right lateral ventricle is distended and dilated representing a change compared to prior CT exam. Increase in left hemispheric edema as there is effacement of the sulci throughout the left hemisphere. No definite hemorrhagic transformation. Atherosclerotic calcifications are present. Port ventricle is patent. There appears be some mass effect upon the basal cistern. Empty sella. Mucosal wall thickening of the right maxillary sinus and a few ethmoid air cells. Globes are symmetric. IMPRESSION: Evolution of LEFT MCA territory infarcts. Shift of midline from the left to right of at least 12 mm (15 mm on MRI) with new enlargement/dilation of the right lateral ventricle. Increase in left hemispheric edema with effacement of sulci. Persistent mass effect upon the midbrain and xiomy. 02/15/23 CT head FINDINGS: Evolving left MCA territory infarct with confluent low attenuation. There is persistent shift of midline from the left to the right measuring 9mm, previously 12 mm There is mass effect upon the left lateral ventricle as well as the xiomy and midbrain. The right lateral ventricle is distended and dilated, unchanged. Stable left hemispheric edema is effacement of the sulci. No definite hemorrhagic transformation. Atherosclerotic calcifications are present. There appears be some mass effect upon the basal cistern. Empty sella. Mucosal wall thickening of the right maxillary sinus and a few ethmoid air cells. Globes are symmetric. IMPRESSION: Evolution of LEFT MCA territory infarct. Shift of midline from the left to the right of at least 9mm, as above 02/15/23 CXR FINDINGS: An enteric tube is present coursing below the hemidiaphragm but excluded from [id number]. Median sternotomy wires and clips are present. Cardiac monitoring wires and leads are present. Trachea is midline. The heart is not enlarged The costophrenic angles are sharp. No confluent consolidation. IMPRESSION: Interval resolution of pulmonary vascular congestion. Assessment and Plan: Principal Problem: Acute ischemic stroke (HCC) Active Problems: Arterial ischemic stroke, MCA (middle cerebral artery), left, acute (HCC) Brain compression (CMS/HCC) (HCC) Cerebral edema (CMS/HCC) (HCC) Troponin level elevated Left MCA Ischemic Stroke Cytotoxic edema Brain Compression Etiology: Embolic--> large Left Atrial thrombus -TTE KATELYNN--> large thrombus filling the whole appendage and protruding into the left atrium--> -Out of window for TNK/ No thrombectomy 2/2 established infarct--> 3% NaCl stopped 02/08 -Mannitol completed 02/11 x 24 hours 2/2 increased brain compression and midline shift 02/10 MRI with worsening cerebral edema - decreased LOC - GCS 9 -CT Head 02/15 stable -Serum osmolality Q8H / Na Q12H -goal Na 138-150, while Osmolarity is high -LR @ 50ml/h--> Free water Flush 30ml Q4H -SBP <160 -Heparin for DVT Prophy -ASA 81mg restart per Neuro Critical care -Atorvastatin 40mg daily --> NG -C/w PT/OT/Speech - placement vs rehab - appreciate recs -Neuro Checks Q4H -Fall precautions/ HOB >30 degrees HTN/HPL CAD NSTEMI on Admit Elevated troponin (7 on admission) HX [place] s/p CABG Hx 3rd Degree Heart Block -SBP <160 -Continue carvedilol and Norvasc -->Continue PRN Labetalol and Hydralazine -Heparin for DVT prophy -Continue beta courtney and statin -Cardiology consulted --> no interventions 2/2 size of MCA stroke, increased risk of bleeding and prognosis Elevated LFTs -SGOT 66, ALT 102, total bili 1.0--> stable -Trend labs -US abdomen ordered Debility Right hemiparesis Right facial Droop Global aphasia Dysphagia -Q2H oral care with mouth moistener -High risk aspiration --> maintain aspiration precautions -PT/OT eval and treat -Aspiration high risk -Up to chair daily -Surgery consulted for PEG placement -PEG placement today in IR --> CT abdomen to evaluate anatomy prior to PEG -Social work consult for rehab/SNF Malnutrition -NPO for Peg placement -Restart Tube feed post peg placement Tobacco use -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 -Currently will be hospitalized without opportunity to smoke for extended period FEN -trend labs -replace lytes PRN -Tube feed on hold for PEG -Strict I/O -Continue bowel regimen --> miralax and senna Code Status Full code GI Prophylaxis: Pantoprazole IV DVT Prophylaxis: Heparin SQ Discussed with Dr Pagan Disposition: OK for [facility] Critical Care Time: >35 minutes Total critical care time caring for this patient with life threatening, unstable organ failure, including direct patient contact, management of life support systems, review of data including imaging and labs, discussions with other team members and physicians, excluding procedures.s. Associated attestation - Sonia Pagan MD - 02/16/2023 5:34 PM EDT I saw and evaluated the patient, participating in the driscoll portions of the service. I reviewed the APPs note. I agree with the findings and plan. I saw him after PEG placement, comfortable and follows commands. Will transition PEG. General Surgery Interval Update Order for IR G tube placement was placed yesterday. Will follow up tomorrow. Cody Felix MD General Surgery, PGY5 PROGRESS NOTE. STROKE SERVICE Patient Name:Catina Land Patient : 1955 Acct: [id number] Date of Admission: 02/05/2023 Room/Bed: T2-[facility]/T2-[facility] A PCP: No primary care provider on file. Patient location ICU Remains in the hospital due to persistent unresolved acute issues, Subjective:see consult note New Complain: No documented events overnight. SBP have been 150-180. He has remained afebrile. Na this morning 145, Os 312. Upon seeing him this morning, he was awake and looking good. Exam has remained the same. Planning for PEG tube today Sedation:No Diet/TF:NPO tube feeds Morales: Yes VTE prophylaxis: YES SCDs & heparin 5000 TID Antithrombotic therapy in first 24 hrs: YES aspirin Statin therapy for stroke stroke patients: High intensity Anticoagulation on AF patients: N/A no history of AF Activity: PT/OT Disposition: IP rehab Current Hospital Medications: Current Facility-Administered Medications: acetaminophen (Tylenol) tablet 650 mg, 650 mg, Oral, q6h PRN, 650 mg at 02/13/23 2328 OR acetaminophen (Tylenol) suppository 650 mg, 650 mg, Rectal, q6h PRN, Cris Harman, SOCCER REFEREE - ETHYLBENZENE CRACKING SUPERVISOR amLODIPine (Norvasc) tablet 10 mg, 10 mg, Oral, Daily, Cris Harman, SOCCER REFEREE - ETHYLBENZENE CRACKING SUPERVISOR, 10 mg at 02/15/23 0856 [Held by provider] aspirin chewable tablet 81 mg, 81 mg, Per G Tube, Daily, Cris Harman, SOCCER REFEREE - ETHYLBENZENE CRACKING SUPERVISOR, 81 mg at 02/12/23 0845 atorvastatin (Lipitor) tablet 40 mg, 40 mg, Per G Tube, Daily, Cris Harman, SOCCER REFEREE - ETHYLBENZENE CRACKING SUPERVISOR, 40 mg at 02/15/23 2121 bisacodyl (Dulcolax) suppository 10 mg, 10 mg, Rectal, Daily PRN, Cris Harman, SOCCER REFEREE - ETHYLBENZENE CRACKING SUPERVISOR bisacodyl (Dulcolax) suppository 10 mg, 10 mg, Rectal, Daily, Cris Harman, SOCCER REFEREE - ETHYLBENZENE CRACKING SUPERVISOR, 10 mg at 02/13/23 0909 carvedilol (Coreg) tablet 25 mg, 25 mg, Per G Tube, BID WC, Cris Harman, SOCCER REFEREE - ETHYLBENZENE CRACKING SUPERVISOR, 25 mg at 02/15/23 1628 heparin injection 5,000 Units, 5,000 Units, SubCUTAneous, 3 times per day, Cris Harman, SOCCER REFEREE - ETHYLBENZENE CRACKING SUPERVISOR, 5,000 Units at 02/15/23 2247 hydrALAZINE (Apresoline) injection 20 mg, 20 mg, IntraVENous, q4h PRN, Cris Harman, SOCCER REFEREE - ETHYLBENZENE CRACKING SUPERVISOR, 20 mg at 02/16/23 0705 ipratropium-albuterol (Duo-Neb) 0.5-2.5 mg/3 mL nebulizer solution 3 mL, 3 mL, Nebulization, TID PRN, Cris Harman, SOCCER REFEREE - ETHYLBENZENE CRACKING SUPERVISOR, 3 mL at 02/07/23 211 ketamine (Ketalar) injection, , , Code/trauma/sedation med, Neel Jacobson MD, 50 mg at 02/09/23 1118 labetalol (Normodyne,Trandate) injection 20 mg, 20 mg, IntraVENous, q4h PRN, Cris Harman APRN - ETHYLBENZENE CRACKING SUPERVISOR, 20 mg at 02/11/23510 lactated Ringer's infusion, 50 mL/hr, IntraVENous, Continuous, Sarah Randall APRN - ETHYLBENZENE CRACKING SUPERVISOR, Last Rate: 50 mL/hr at 02/15/232122, 50 mL/hr at 02/15/232122 lidocaine (Uro-Jet) 2 % gel, , Topical, Once, Cris Harman SOCCER REFEREE - ETHYLBENZENE CRACKING SUPERVISOR melatonin tablet 5 mg, 5 mg, Oral, Nightly PRN, Cris Harman APRN - ETHYLBENZENE CRACKING SUPERVISOR, 5 mg at 02/14/232108 nystatin (Mycostatin) 233272 UNIT/ML suspension 500,000 Units, 5 mL, Swish & Spit, TID, Sarah Randall SOCCER REFEREE - ETHYLBENZENE CRACKING SUPERVISOR, 500,000 Units at 02/15/232120 ondansetron ODT (Zofran-ODT) disintegrating tablet 4 mg, 4 mg, Oral, q8h PRN OR ondansetron (Zofran) injection 4 mg, 4 mg, IntraVENous, q6h PRN, Cris Harman SOCCER REFEREE - ETHYLBENZENE CRACKING SUPERVISOR pantoprazole (ProtoNix) EC tablet 40 mg, 40 mg, Oral, Nightly, 40 mg at 02/11/232132 OR pantoprazole (ProtoNix) injection 40 mg, 40 mg, IntraVENous, Nightly, Cris Harman APRN - ETHYLBENZENE CRACKING SUPERVISOR, 40 mg at 02/15/232120 polyethylene glycol (PEG) 3350 (Miralax) packet 17 g, 17 g, Oral, BID, Sarah Randall SOCCER REFEREE - ETHYLBENZENE CRACKING SUPERVISOR, 17 g at 02/15/232120 polyvinyl alcohol (Liquifilm Tears) 1.4 % ophthalmic solution, , Both Eyes, PRN, Horace Garcia MD, Given at 02/13/23 1337 Propofol (Diprivan) injection, , IntraVENous, Code/trauma/sedation med, Neel Jacobson MD, 30 mg at 02/09/23 1126 senna-docusate sodium (Senokot-S) 8.6-50 MG tablet 2 tablet, 2 tablet, Oral, BID, Cris Harman, SOCCER REFEREE - ETHYLBENZENE CRACKING SUPERVISOR, 2 tablet at 02/15/232119 sodium chloride 0.9 % infusion, 5-250 mL/hr, IntraVENous, PRN, Cris Harman, SOCCER REFEREE - ETHYLBENZENE CRACKING SUPERVISOR sodium chloride 0.9% (NS) flush 5-40 mL, 5-40 mL, IntraVENous, q12h, Cris Harman, SOCCER REFEREE - ETHYLBENZENE CRACKING SUPERVISOR, 10 mL at 02/13/23 2316 sodium chloride 0.9% (NS) flush 5-40 mL, 5-40 mL, IntraVENous, PRN, Cris Harman, SOCCER REFEREE - ETHYLBENZENE CRACKING SUPERVISOR Continuous Infusions: lactated Ringer's, 50 mL/hr, Last Rate: 50 mL/hr (02/15/232122) Allergies: Patient has no allergy information on record. Review of Systems Unable to perform ROS: Acuity of condition Objective: Telemetry: Arrhythmia:N/A Physical Examination: Patient Vitals for the past 8 hrs: BP Temp Pulse Resp SpO2 02/16/23 0701 (!) 171/103 -- 71 14 93 % 02/16/23 0700 (!) 182/87 -- 71 17 94 % 02/16/23 0600 (!) 174/90 -- 71 16 93 % 02/16/23 0500 (!) 158/82 -- 64 13 94 % 02/16/23 0400 (!) 162/91 36.6 C (97.9 F) 69 16 94 % 02/16/23 0300 (!) 168/79 -- 68 14 94 % 02/16/23 0200 (!) 153/74 36.4 C (97.6 F) 65 12 93 % 02/16/23 0148 (!) 154/83 -- 66 13 94 % 02/16/23 0100 (!) 165/83 -- 67 14 97 % 02/16/23 0000 (!) 158/80 36.9 C (98.4 F) 70 14 95 % I/O last 3 completed shifts: In: 2953 (42.6 mL/kg) [I.V.:1153 (16.6 mL/kg); NG/GT:1800] Out: 2375 (34.3 mL/kg) [Urine:2375 (1 mL/kg/hr)] Weight: 69.3 kg General Physical Examination: General:young male HEENT:Normocephalic, atraumaticl CV: S1+S2, RRR, no MRG. Pulm:CTA b/l, unlabored Abdomen: Soft NT/ND. BS + Skin: Intact without ulcers, breakdowns or discoloration Extremities: normal with no edema or cyanosis Orthopedic limitation; N/A Pulses: Intact peripherally Carotid auscultation :No bruits Neurological Examination: Higher Functions: Mental Status Exam: Level of Alertness:awake male Orientation: Aphasic Memory: Aphasic Fund of Knowledge: Aphasic Language: Globalaphasia Dysarthria present Cranial Nerves: -II Visual acuity: abnormal, limited due to patient unable to perform exam -II Visualfields: poor reliability due to patient level of consciousness or structural limitation -III Pupils (~ 3 mm OD, 3 mm OU) equal, round, reactive to light -III-IV- Extraocular Movements: intact -Nystagmus not present -Saccades and pursuits normal -V Facial sensation: appears normal Corneal's Intact bilateral -VII Facial strength:abnormal -VIII Hearing: intact -IX-X - Gag reflex not assessed -X Palate: abnormal -XI Shoulder shrug: abnormal -XII Tongue movement: not participant MotorExamination: Tone after evaluation of 4 limbs, the following findings applied: Spastic R arm Decreased R leg Normal L arm and leg -Bulk: normal -Muscle Stretch afterevaluation of all limbs, and axial musculature the following findings applied: Drift: Present R arm and leg -Reflexes: after evaluation of 4 limbs, the following findings applied ; normal all limbs -Plantar responce: Equivocal Sensory appears normal butlimited reliability, Coordination: Arms limited reliability of exam/ poor participation Legs Limited reliability/poor participation Tremors not participant Gait abnormal, patient unable to walk due to acute circumstances / bed rest / safety concerns NIHSS 1a Level of consciousness: 0 1b. LOC questions: 2=Performs neither task correctly 1c. LOC commands: 2 2. Best Gaze: 1=partial gaze palsy 3. Visual: 0=No visual loss 4. Facial Palsy: 2=Partial paralysis (total or near total paralysis of the lower face) 5a. Motor left arm: 0=No drift, limb holds 90 (or 45) degrees for full 10 seconds 5b. Motor right arm: 4=No movement 6a. motor left le=No drift, limb holds 90 (or 45) degrees for full 10 seconds 6b Motor right le=No effort against gravity, limb falls 7. Limb Ataxia: 0=Absent 8. Sensory: 0=Normal; no sensory loss 9. Best Language: 3=Mute, global aphasia; no usable speech or auditory comprehension 10. Dysarthria: 2=Severe; patient speech is so slurred as to be unintelligible in the absence of or our of proportion to any dysphagia, or is mute/anarthric 11. Extinction and Inattention: 0=No abnormality 12. Distal motor function: 0=Normal Total: 17 ANCILLARY Last 24hrs Recent Results (from the past 24 hour(s)) Osmolality Collection Time: 02/15/23 8:09 AM Result Value Ref Range OSMOLALITY, SERUM 312 (H) 280 - 300 mOsm/kg Sodium Collection Time: 02/15/23 8:09 AM Result Value Ref Range SODIUM 146 (H) 135 - 145 mmol/L Osmolality Collection Time: 02/15/23 4:33 PM Result Value Ref Range OSMOLALITY, SERUM 308 (H) 280 - 300 mOsm/kg Sodium Collection Time: 02/15/23 4:33 PM Result Value Ref Range SODIUM 143 135 - 145 mmol/L CBC Collection Time: 02/16/23 12:10 AM Result Value Ref Range Auto WBC 9.6 3.6 - 10.7 10*3/uL RBC 4.91 4.40 - 5.90 10*6/uL Hemoglobin 14.6 13.0 - 18.0 g/dL Hematocrit 43.3 40.0 - 52.0 % MCV 88.3 80.0 - 98.0 fL MCH 29.8 26.0 - 34.0 pg MCHC 33.8 32.0 - 36.0 % RDW 14.0 11.5 - 14.5 % Platelets 296 140 - 440 10*3/uL MPV 9.8 7.4 - 12.4 fL Osmolality Collection Time: 02/16/23 12:10 AM Result Value Ref Range OSMOLALITY, SERUM 312 (H) 280 - 300 mOsm/kg Protime-INR Collection Time: 02/16/23 12:10 AM Result Value Ref Range PROTHROMBIN TIME 11.5 9.0 - 12.0 s INR 1.1 0.9 - 1.1 Comprehensive metabolic panel Collection Time: 02/16/23 12:10 AM Result Value Ref Range SODIUM 145 135 - 145 mmol/L POTASSIUM 3.7 3.5 - 5.1 mmol/L CHLORIDE 109 (H) 98 - 107 mmol/L CARBON DIOXIDE 32 (H) 22 - 30 mmol/L ANION GAP 5 3 - 13 mmol/L UREA NITROGEN 30 (H) 9 - 20 mg/dL CREATININE 0.80 0.66 - 1.25 mg/dL GLUCOSE 113 (H) 70 - 100 mg/dL CALCIUM 8.6 8.4 - 10.4 mg/dL AST (SGOT) 66 (H) 15 - 46 U/L ALT 102 (H) 0 - 49 U/L ALKALINE PHOSPHATASE 79 38 - 126 U/L ALBUMIN 3.1 (L) 3.5 - 5.0 g/dL BILIRUBIN, TOTAL 0.6 0.2 - 1.3 mg/dL TOTAL PROTEIN 5.6 (L) 6.3 - 8.2 g/dL eGFR >90.0 >60.0 mL/min/1.73m*2 Bilirubin, direct Collection Time: 02/16/23 12:10 AM Result Value Ref Range BILIRUBIN, DIRECT 0.0 0.0 - 0.3 mg/dL Radiology: EKG 02/05/23:IMPRESSION: Sinus rhythm Borderline prolonged NH interval Nonspecific intraventricular conduction delay Probable inferior infarct, old Anterior ST depressions Nonspecific T abnormalities, lateral leads CTH 02/05/23:IMPRESSION: Large left MCA territory infarct with hyperdense left MCA. Sulcal effacement and mild mass effect on the left lateral ventricles. ASPECT SCORE= 0. 1 mm rightward midline shift measured at the subtle signal. No herniation. Subtle hyperdensity in the left parietal convexity could represent subtle subarachnoid hemorrhage, cortical petechial hemorrhage or apposition of luna matter. CTA head & neck 02/05/23: IMPRESSION: Perfusion CT demonstrates large perfusion abnormality consistent with large left MCA territory infarct. CTA with left M1 occlusion. Nonenhancement of the left intracranial and intracranial ICA is nonspecific and could be due to significant back pressure resulting in nonenhancement versus occlusion which could appear similar. The left TONI is patent. Moderate to severe focal stenosis of the right COMMERCIAL LOAN SPECIALIST and mild to moderate focal stenosis of the left COMMERCIAL LOAN SPECIALIST at the P1-P2 junctions as discussed. Cervical spondylosis. Approximately 10% stenosis of the right cervical ICA by NASCET criteria. NASCET criteria not applicable for the left ICA. Nonspecific frothy secretions in the right maxillary sinus which can be seen with acute sinusitis if in the appropriate clinical setting. CTH 02/06/23:IMPRESSION: Unchanged nonhemorrhagic left MCA territory infarct with stable mass effect. CTH 02/07/23: IMPRESSION: Redemonstrated subacute large left MCA territory infarct. No interval hemorrhagic conversion. Interval worsening of mass effect with increased effacement of the left lateral ventricle, 7 mm rightward midline shift measured at the septum pellucidum, mass effect on the left vertebral peduncle and partial effacement of the ambient cisterns ECHO 02/07/23:Left Ventricle: Left ventricle size is normal. Moderate basal septal thickening. Normal left ventricular systolic function. EF by 2D Simpsons Biplane is 58%. Normal wall motion. Diastolic dysfunction present with normal LVEF. Right Ventricle: Not well visualized. Right ventricle size is normal. Normal systolic function. Mitral Valve: Mild (1+) regurgitation. -mildly increased L atrium CESARIO 02/09/23: Left Atrium: Left atrium is moderately dilated. Left atrial appendage thrombus noted. It is large and fills most of the appendage. It is ~35x 15 mm in one plane. Can be seen throughout all imaging planes. There is protruding mobile portion of the thrombus into the left atrium which measures in length x width 10 mmx 4 mm. Left Ventricle: Left ventricle size is normal. Mildly increased wall thickness. Normal left ventricular systolic function. The EF by visual approximation is 60%. Normal wall motion. Interatrial Septum: No interatrial shunt visualized on color Doppler. Agitated saline study was negative. No PFO present. Aorta: Normal sized annulus and ascending aorta. There is mild atherosclerosis present in the aortic arch. There is mild atherosclerosis in the descending aorta. No significant valvular abnormalities. ASSESSMENT / PLAN/RECOMMENDATIONS: Left MCA ischemic stroke with symptomatic hemorrhagic transformation HT1 ETIOLOGY:EMBOLIC from large left atrial thrombus Cytotoxic brain edema Severe brain compression with mass effect 11-13mm R hemiparesis R hemineglect ?R hemianopia Global aphasia Dysphagia Facial droop CAD HPL Hx of [place] Hx of CABG Hx of 3rd degree AV block PLAN -PEG planned for today -aspirin plan still to be determined -OAC plan to still be determined -hypercoagulation panel pending to be followed OP -goal Na normonatremia -continue free H20 50 Q4H -holding aspirin for now -atorvastatin 40 -okay for DVT ppx with heparin 5000 TID - neuro checks every hour - primary to manage SBP, goal <160 -rehab evaluation -OOB, PT/OT -will need OP neurology stroke follow up Family updated at the bedside. We will follow to ensure stability after PEG. If stable okay to go to the floor and prepare for rehab. 35 minutes Nurse practitioner time with the patient/family in regards to review of chart, exam, further planning and updates of care PHQ2 Over the las 2 weeks, how often have you been bothered by the following problems; - Little interest or pleasure in doing things Deferred - Feeling down, depressed or hopeless Deferred - Final score: deferred, patient aphasic Patient seen and discussed with Dr. Flores Nutrition Assessment Type and Reason for Visit: Reassess Nutrition Recommendations/Plan: Continue with current TF order of Jevity 1.5 with a goal rate of 50ml/hr, this provides 1800 kcals, 76 g pro, 912 mL free water (26 kcal/kg and 1.1 g pro/kg CBW). The current TF formula and order is appropriate for the pt to receive long-term. It provides >75% estimated energy needs based on the last recorded current wt. RD will continue to follow weekly and assess TF tolerance. Malnutrition Assessment: Malnutrition Status: At risk for malnutrition (Comment) (r/t to inability to maintain adequate PO intake, TF dependance, and s/p stroke) Context: Acute Illness Findings of the 6 clinical characteristics of malnutrition: Energy Intake: Mild decrease in energy intake (Comment) (Dobhoff placed and TF started on 02/07/23. TF at goal rate since 02/07. TF briefly stopped for CESARIO on 02/09/23 which resumed. TF off this am- pt pulled out dobhoff overnight 02/10. TF ran from 02/12-02/15) Weight Loss: Unable to assess Body Fat Loss: No significant body fat loss Muscle Mass Loss: No significant muscle mass loss Fluid Accumulation: No significant fluid accumulation Extremities Senior Executive Compensation Analyst Strength: Not Performed Nutrition Assessment: The pt is a 67 y/o male W/PMH of CAD, [place], (s/p CABG & stenting), and HLD. Patient presented to [facility] ED on 02/05/23 after being found down on floor of bathroom covered in vomit by EMS. Family had called for a well check after being unable to contact the patient. Last known well time was sometime Tuesday02/03/23 in the AM. Patient was last seen by neighbors at that time. CT imaging showed L MCA infarct. Out of window for TNK, not amenable to thrombectomy d/t large established core infarct. He was admitted to T2 ICU. Cardiology following d/t NSTEMI med manage with beta courtney & statin. He was briefly on 3% NaCl for cerebral edema & mass effect. Dobhoff in place for nutrition d/t ongoing speech therapy for dysphagia. General surgery was consulted, and due to pt being unable to handle secretion so PEG is being pursued. Planned for next week. 02/15 the pt is alert, able to self-suction, and follow commands per CCU CHILDREN'S COUNSELOR eval. Has remained on Jevity 1.5 with a goal rate of 50ml/hr, this provides 1800 kcals, 76 g pro, 912 mL free water (24 kcal/kg and 1.0 g pro/kg IBW). RD to see Catina, he was resting and able to hear him snoring. Leighann, his sister was present and able to answer a few questions. She denied any food allergies. Jevity 1.5 was running at 50 ml/hr. Discussed recommendation for continued and appropriateness of Jevity 1.5/standard EN formula. Leighann had no further questions at this time. Estimated Daily Nutrient Needs: Energy Requirements Based On: Kcal/kg Weight Used for Energy Requirements: Current Weight for Energy Calculation (kg): 74.3 kg Total Energy Requirements (kcals/day): 5356-8824 (20-25 kcal/kg) Weight Used for Protein Requirements: Current Weight in Kg Used for Protein Requirements: 74.3 kg Estimated Total Protein (g/day): 74 (1.0 g/kg) Estimated Daily Total Fluid (ml/day): per Nutrition Related Findings: Kar 15. NIH 4. -I/O. mild BLE edema. espressive aphasia. GI WDL. NG still present as the pt continued to work with SUPERVISOR DEHYDROGENATION. meds and labs reviewed. Wound Type: (blister/abrasion right hip) Current Nutrition Therapies: Diet, tube feeding no tray Nasogastric; Jevity 1.5 [place]; Continuous; Yes; 10; 10; 50; Water; Tap water; 50; Q 4 Hours Current Oral Intake Average Meal Intake: NPO Average Supplements Intake: None Ordered, NPO Anthropometric Measures: Height: 165.1 cm (5' 5") Current Body Weight: (pt out of bed, unable to obtain weight) Weight Source: Not Specified Admission Body Weight: 73.9 kg (163 lb) Usual Body Weight: (Weight history in limited in [facility]. 148# on 04/13/2017) Dixon Body Weight (lbs) (Calculated): 136 lbs Dixon Body Weight (Kg) (Calculated): 62 kg % Dixon Body Weight (Calculated): 120.4 % BMI (kg/m2) (Calculated): 27.1 Weight Adjustment For: No Adjustment BMI Categories: Overweight (BMI 25.0-29.9) Nutrition Diagnosis: Inadequate oral intake related to swallowing difficulty as evidenced by NPO or clear liquid status due to medical condition Nutrition Interventions: Nutrition Education/Counseling: No recommendation at this time Coordination of Nutrition Care: Continue to monitor while inpatient, Speech Therapy Goals: Previous Goal Met: Goal(s) Achieved Goals: Tolerate nutrition support at goal rate, Meet at least 75% of estimated needs, by next RD assessment Nutrition Monitoring and Evaluation: Behavioral-Environmental Outcomes: None Identified Food/Nutrient Intake Outcomes: Enteral Nutrition Intake/Tolerance Physical Signs/Symptoms Outcomes: Biochemical Data, Nutrition Focused Physical Findings, Skin, Weight Discharge Planning: Enteral Nutrition Angeli Pierre RD Contact: [facility] Chat Speech-Language Pathology Facility/Department: [facility] [id number] SPEECH THERAPY TREATMENT NAME: Catina Land : 1955 ADMISSION DATE: 02/05/2023 ADMITTING DIAGNOSIS: has History of coronary artery bypass graft x 2; Hyperlipidemia; Presence of stent in coronary artery; CAD (coronary artery disease); [place], old; Acute ischemic stroke (HCC); Arterial ischemic stroke, MCA (middle cerebral artery), left, acute (HCC); Brain compression (CMS/HCC) (HCC); Cerebral edema (CMS/HCC) (HCC); and Troponin level elevated on their problem list. Not on File Onset Date: 02/05/23 Pain: managed by RN General General Chart Reviewed: Yes Patient Assessed for Rehabilitation Services: Yes Family / Caregiver Present: No General Comment PPE Worn: gloves Subjective Subjective: Limited verbal output. Right neglect is still noted. S: Patient is upright in reclining chair, agreeable to ST. CHILDREN'S COUNSELOR states that patient is not able to manage secretions and a PEG in planned in the next few days. O: To address language goals A: Yes/No questions - 70% acc, patient continues to perseverate on yes answers with thumbs up response Choose from named item, 2 objects - 80%, benefits from seeing each item individually first Verb sounds - Repeats sister's name, "Leighann" and perseverates on the verbalization, no other sounds Patient's sister to bring in family pictures for patient to practice naming. Education Education Given: communication P: Recommend continue to address language goals. ST to follow. Treatment Plan Requires SUPERVISOR DEHYDROGENATION Intervention: Yes Frequency/Duration: 3 days/wk for 2 weeks Treatment/Goals Encounter Problems Encounter Problems (Active) Cognition/Visual Perception Patient will participate in repeat cognitive assessment as appropriate. Start: 02/05/23 Patient will utilize memory intervention for task completion Start: 02/05/23 Patient will utilize problem-solving intervention for task completion Start: 02/05/23 Communication/Dysarthria Patient will follow 1 step commands (Progressing) Start: 02/07/23 Expected End: 02/21/23 Patient will participate in further assessment of speech and language skills (Progressing) Start: 02/07/23 Expected End: 02/21/23 Patient participates in automatic speech tasks (Not Progressing) Start: 02/07/23 Expected End: 02/21/23 SUPERVISOR DEHYDROGENATION Misc Yes/no questions (Progressing) Start: 02/07/23 Expected End: 02/21/23 Pt will answer simple yes/no questions with 70% accuracy. Swallowing Patient will complete oropharyngeal strengthening exercises to improve swallow function (Progressing) Start: 02/06/23 Expected End: 02/21/23 Patient will participate in repeat clinical dysphagia evaluation (Completed) Start: 02/06/23 Expected End: 02/21/23 Met: 02/07/23 Patient will tolerate therapeutic trials of recommended consistency without clinical signs and symptoms of aspiration (Progressing) Start: 02/06/23 Expected End: 02/21/23 Therapy Time Time Out: 1139 Total Time: 16 minutes DAYANA Proctor 02/15/2023 12:54 PM ICU Progress Note Name: Catina Land : 1955(67 y.o.) Date: 02/15/23 Team: MICU Attending: Dr Pagan Subjective: Hospital Summary: 67 YO male W/PMH of CAD, [place], (s/p CABG & stenting), and HLD. Patient presented to [facility] ED on 02/05/23 after being found down on floor of bathroom covered in vomit by EMS. Family had called for a well check after being unable to contact the patient. Last known well time was sometime Tuesday02/03/23 in the AM. Patient was last seen by neighbors at that time. CT imaging showed L MCA infarct. Out of window for TNK, not amenable to thrombectomy d/t large established core infarct. He was admitted to T2 ICU. Cardiology following d/t NSTEMI med manage with beta courtney & statin. He was briefly on 3% NaCl for cerebral edema & mass effect. Dobhoff in place for nutrition d/t ongoing speech therapy for dysphagia. 02/06 CT head showed L MCA territory infarct w/ stable mass effect. BP overnight 150-170. Right side flaccid following commands L side. Code status changed to Full code d/t improvement. 3% NS @ 50ml/h 4/3 Increased SBP 160-190, requiring multiple PRN meds. 3% NaCl @ 50ml/h. Follows simple commands on left right flaccid 4/4 Ongoing hypertension overnight SBP 180-210, multiple PRN meds given. + right facial droop and R hemiparesis. Able to follow basic commands w/ left upper and lower extr. CTH with increased Cytotoxic edema and compression /5 - Increased LOC - increased agitation - starting PO antihypertensive meds - CESARIO completed - Large AA thrombus 4/6 - Pulled out Dobhoff overnight - Surgery consulted for PEG tube per Neuro - surgery will likely place next week if condition allows-- Awaiting MRI today 02/11 - MRI reviewed per neuro with increased swelling - this AM with decrease in LOC compared to exam 02/10 - will start Mannitol every 8 hours with serum Osmo prior to administration -Neuro Crit Care is holding on AC at this time d/t increased risk of bleeding. Family to discuss life support orders 02/12 Improved mentation. Mannitol held / Osmolality 320. 02/13 Improved mentation, follows commands, interactive. Bms x 5 Osm 331 and Na 156 Increased free water Interval Events: Patient stable, alert, Ongoing weak cough but is suctioning self, following commands, + verbal responses to questions. Ongoing Right Hemiparesis. Pending CT this am. SBP 140-0150's overnight. Scheduled Meds: amLODIPine, 10 mg, Oral, Daily [Held by provider] aspirin, 81 mg, Per G Tube, Daily atorvastatin, 40 mg, Per G Tube, Daily bisacodyl, 10 mg, Rectal, Daily carvedilol, 25 mg, Per G Tube, BID WC heparin, 5,000 Units, SubCUTAneous, 3 times per day lidocaine, , Topical, Once pantoprazole, 40 mg, Oral, Nightly Or pantoprazole, 40 mg, IntraVENous, Nightly polyethylene glycol (PEG) 3350, 17 g, Oral, BID senna-docusate sodium, 2 tablet, Oral, BID sodium chloride 0.9%, 5-40 mL, IntraVENous, q12h Continuous Infusions: lactated Ringer's, 50 mL/hr, Last Rate: 50 mL/hr (02/13/23 1831) Objective: Last Vitals: BP MAP (!) 149/79 (02/15/23 07) 97 (02/15/23 07) Arterial BP MAP Temp 36.6 C (97.9 F) (02/15/23 0000) Pulse 77 (02/15/23 07) Resp 14 (02/15/23699) SpO2 95 % (02/15/23 07) Weight 69.3 kg (152 lb 12.5 oz) (02/12/23 0600) BMI Body mass index is 25.42 kg/m . I/O: 02/14 700 - 02/15 0659 In: 2445 [I.V.:1153] Out: 1310 [Urine:1310] Ventilator: NA Oxygen Delivery: O2 Flow Rate (L/min): 1 L/min Invasive Lines / Tubes / Drains: Peripheral IV 02/07/23 Anterior;Proximal;Right Forearm (Active) Number of days: 7 NG/OG Tube Nasogastric Right nostril (Active) Number of days: 8 Male External Urinary Catheter Medium (Active) Number of days: 9 Central Line Indication: NA - patient does not have a central line Morales Indications: NA - patient does not have a Morales catheter Restraints: Restraints Non-Violent Or Non-Self Destructive Feb 10, 2023 5:17 Am Edt NA - patient is not restrained. Wounds: Constitutional: General Appearance []WDWN []Obese []Cachectic []Thin [x]Ill Eyes: Inspection of Pupils/Irises Pupils round and react: [x]Yes []No Sclera: []Icteric [x]Non-Icteric Inspection of Conjunctiva/Lids Conjunctiva: []Injected [x]Non-Injected Lids: [x]Intact []Lesion Present ENT/Mouth: External Inspection of ears/nose [x] Normal [] Scar/Lesion/Mass Inspection of teeth/lips/gums Dentition: [x][place] Teeth []Dentures Lips/Gums: [x]Intact []Lesion Present Mucosa: [x][place] [x]Moist []Dry Neck: External Appearance Overall Appearance: [x]Normal []Lesion/Mass/Crepitus Present Trachea midline: [x]Yes []No Thyroid [x]Normal []Enlarged []Tender []Mass []Absent Respiratory: Respiratory effort []Labored [x]Non-Labored [] Mechanically-Ventilated Auscultation []Clear []Crackles []Wheezes [x][place] Cardiovascular: Auscultation Rate: [x]Regular []Irregular []Tachycardia []Bradycardia Rhythm: [x]Regular []Irregular Murmur: []Present [x]Absent Extremities Peripheral Edema: []Present [x]Absent Varicosities: []Present [x]Absent Gastrointestinal: Abdomen Palpation: [x]Soft []Firm []Tender []Non-Tender []Distended [x]Non-distended Mass: []Present [x]Absent Bowel Sounds: [x]Present []Absent Hernia: []Present [x]Absent Liver/Spleen: []Hepatosplenomegaly []Organomegaly Absent Musculoskeletal: Inspection of Digits and Nails Cyanosis: []Present [x]Absent Clubbing: []Present [x]Absent Ischemia: []Present [x]Absent Infection: []Present [x]Absent Extremities GARCIA Equally: Except ([x]RUE [x]RLE []LUE []LLE) Strength/Tone: Intact and Normal ([]RUE []RLE [x]LUE [x]LLE) Skin: Inspection [x]Normal []Rash []Lesion []Ulcer Palpation [x]Warm []Cool [x]Dry []Clammy []Nodules []Induration []Skin-tightening Cap-Refill: [x] <3 sec [] >3 seconds (delayed) Ongoing oral debris and Thrush on tongue Neurologic: GCS EYE: 4 - Opens spontaneously GCS MOTOR: 6 - Obeys commands for movement GCS VERBAL: 5 - Oriented to person, place, time Total GCS: 15 [x] Sensation grossly intact Psych: Mental Status Alert: [x]Yes [] No Oriented: []x0 []X1 []X2 [x]x3 Mood/Affect [x]Normal []Flat []Agitated []Depressed []Anxious []Calm []Sedated []NAD [facility] within last 24 hours- BMP: Recent Labs 02/13/23 0022 02/13/2390202/14/23 0001 02/14/23 0828 02/15/23 0000 NA 150* < > 149* 148* 146* K 3.8 -- 3.7 -- 3.5 CL 114* -- 114* -- 111* CO2 28 -- 30 -- 33* BUN 40* -- 40* -- 34* CREATININE 0.95 -- 0.90 -- 0.88 CALCIUM 9.3 -- 8.6 -- 8.6 MG -- -- -- -- 2.2 < > = values in this interval not displayed. LFTs: Recent Labs 02/13/23 0902/14/23 0001 02/15/23 0000 AST 69* 64* 55* ALT 98* 93* 87* PROT 6.2* 5.7* 5.4* ALBUMIN 3.6 3.1* 3.1* BILITOT 0.9 0.8 0.7 ALKPHOS 94 79 80 Glucose: Recent Labs 02/13/23 0022 02/14/23 0001 02/15/23 0000 GLUCOSE 137* 110* 125* Procal: No results for input(s): PROCAL in the last 72 hours. CBC: Recent Labs 02/13/23 0022 02/14/23 0001 02/15/23 0000 WBC 7.9 8.8 10.2 HGB 16.3 15.0 14.4 HCT 48.6 44.5 42.9 PLT 308 286 289 MCV 89.0 89.2 88.8 RDW 14.0 14.0 14.1 ABGs: No results for input(s): PHART, [id number], PO2ART, WXB6AUQ, SO2ART, C3MNABKN in the last 72 hours. Lactic Acid: No results for input(s): LACTATE in the last 72 hours. INR: No results for input(s): INR in the last 72 hours. Cardiac Injury Profile: No results for input(s): CKTOTAL, CKMB, TROPONINI in the last 72 hours. Labs in Last 3 months: Lab Results Component Value Date INR 1.1 02/05/2023 Microbiology- Urine Cx: No results found for: URINECX Blood Cx: No results found for: BLOODCX Sputum Cx: No results found for: RESPCULT Gram Stain: No results found for: LABGRAM PNA PCR: No results found for: HUMANMETAPNE COVID19: No results found for: COVID19 Legionella Ag: No results found for: LEGIONELLAPN Strep Ag: No results for input(s): STREPPNEUMO in the last 72 hours. Imaging- EKG 02/05/23:IMPRESSION: Sinus rhythm Borderline prolonged NH interval Nonspecific intraventricular conduction delay Probable inferior infarct, old Anterior ST depressions Nonspecific T abnormalities, lateral leads CTH 02/05/23:IMPRESSION: Large left MCA territory infarct with hyperdense left MCA. Sulcal effacement and mild mass effect on the left lateral ventricles. ASPECT SCORE= 0. 1 mm rightward midline shift measured at the subtle signal. No herniation. Subtle hyperdensity in the left parietal convexity could represent subtle subarachnoid hemorrhage, cortical petechial hemorrhage or apposition of luna matter. CTA head & neck 02/05/23: IMPRESSION: Perfusion CT demonstrates large perfusion abnormality consistent with large left MCA territory infarct. CTA with left M1 occlusion. Nonenhancement of the left intracranial and intracranial ICA is nonspecific and could be due to significant back pressure resulting in nonenhancement versus occlusion which could appear similar. The left TONI is patent. Moderate to severe focal stenosis of the right COMMERCIAL LOAN SPECIALIST and mild to moderate focal stenosis of the left COMMERCIAL LOAN SPECIALIST at the P1-P2 junctions as discussed. Cervical spondylosis. Approximately 10% stenosis of the right cervical ICA by NASCET criteria. NASCET criteria not applicable for the left ICA. Nonspecific frothy secretions in the right maxillary sinus which can be seen with acute sinusitis if in the appropriate clinical setting. CTH 02/06/23:IMPRESSION: Unchanged nonhemorrhagic left MCA territory infarct with stable mass effect. CTH 02/07/23: IMPRESSION: Redemonstrated subacute large left MCA territory infarct. No interval hemorrhagic conversion. Interval worsening of mass effect with increased effacement of the left lateral ventricle, 7 mm rightward midline shift measured at the septum pellucidum, mass effect on the left vertebral peduncle and partial effacement of the ambient cisterns ECHO 02/07/23:Left Ventricle: Left ventricle size is normal. Moderate basal septal thickening. Normal left ventricular systolic function. EF by 2D Simpsons Biplane is 58%. Normal wall motion. Diastolic dysfunction present with normal LVEF. Right Ventricle: Not well visualized. Right ventricle size is normal. Normal systolic function. Mitral Valve: Mild (1+) regurgitation. -mildly increased L atrium CESARIO 02/09/23: CESARIO with Large AA thrombus - filling the whole appendage and protruding into the the left atrium MRI 02/10 IMPRESSION: Worsening cerebral edema involving the distribution of the right MCA with significant compression of the left lateral ventricle and brain stem and xiomy as well as a left to right midline shift of approximately 15 mm. No evidence of hemorrhagic transformation. 02/11 CT head FINDINGS: Evolving left MCA territory infarct with confluent low attenuation. There is persistent shift of midline from the left to the right now measuring 12 mm with previous measurement of [address] head 02/07/2023 and 15 mm on MRI brain 02/10/2023. There is mass effect upon the left lateral ventricle as well as the xiomy and midbrain. The right lateral ventricle is distended and dilated representing a change compared to prior CT exam. Increase in left hemispheric edema as there is effacement of the sulci throughout the left hemisphere. No definite hemorrhagic transformation. Atherosclerotic calcifications are present. Port ventricle is patent. There appears be some mass effect upon the basal cistern. Empty sella. Mucosal wall thickening of the right maxillary sinus and a few ethmoid air cells. Globes are symmetric. IMPRESSION: Evolution of LEFT MCA territory infarcts. Shift of midline from the left to right of at least 12 mm (15 mm on MRI) with new enlargement/dilation of the right lateral ventricle. Increase in left hemispheric edema with effacement of sulci. Persistent mass effect upon the midbrain and xiomy. 02/15/23 CT head FINDINGS: Evolving left MCA territory infarct with confluent low attenuation. There is persistent shift of midline from the left to the right measuring 9mm, previously 12 mm There is mass effect upon the left lateral ventricle as well as the xiomy and midbrain. The right lateral ventricle is distended and dilated, unchanged. Stable left hemispheric edema is effacement of the sulci. No definite hemorrhagic transformation. Atherosclerotic calcifications are present. There appears be some mass effect upon the basal cistern. Empty sella. Mucosal wall thickening of the right maxillary sinus and a few ethmoid air cells. Globes are symmetric. IMPRESSION: Evolution of LEFT MCA territory infarct. Shift of midline from the left to the right of at least 9mm, as above 02/15/23 CXR FINDINGS: An enteric tube is present coursing below the hemidiaphragm but excluded from [id number]. Median sternotomy wires and clips are present. Cardiac monitoring wires and leads are present. Trachea is midline. The heart is not enlarged The costophrenic angles are sharp. No confluent consolidation. IMPRESSION: Interval resolution of pulmonary vascular congestion. Assessment and Plan: Principal Problem: Acute ischemic stroke (HCC) Active Problems: Arterial ischemic stroke, MCA (middle cerebral artery), left, acute (HCC) Brain compression (CMS/HCC) (HCC) Cerebral edema (CMS/HCC) (HCC) Troponin level elevated Left MCA Ischemic Stroke Cytotoxic edema Brain Compression Etiology: Embolic--> large Left Atrial thrombus -TTE KATELYNN--> large thrombus filling the whole appendage and protruding into the left atrium--> -Out of window for TNK/ No thrombectomy 2/2 established infarct--> 3% NaCl stopped 02/08 -Mannitol completed 02/11 x 24 hours 2/2 increased brain compression and midline shift 02/10 MRI with worsening cerebral edema - decreased LOC - GCS 9 -CT Head pending -Serum osmolality Q8H --> 317 -goal Na 138-150, while Osmolarity is high -LR @ 50ml/h--> Free water Flush 30ml Q4H -SBP <160 -Heparin for DVT Prophy -ASA 81mg hold per Neuro Critical care -Continue atorvastatin 40mg daily --> NG C/w PT/OT/Speech - placement vs rehab - appreciate recs -Neuro Checks Q1H -Fall precautions/ HOB >30 degrees HTN/HPL CAD NSTEMI on Admit Elevated troponin (7 on admission) HX WA s/p CABG Hx 3rd Degree Heart Block -SBP <160 -Continue carvedilol and Norvasc -->Continue PRN Labetalol and Hydralazine -troponin 7 on admission, EKG with T wave inversion -Heparin for DVT prophy -Continue beta courtney and statin -Cardiology consulted --> no interventions 2/2 size of MCA stroke, increased risk of bleeding and prognosis Elevated LFTs -SGOT 55, ALT 87, total bili 1.0--> stable -Trend labs -US abdomen is numbers do not improve Debility Right hemiparesis Right facial Droop Global aphasia Dysphagia -Q2H oral care with mouth moistener -High risk aspiration --> maintain aspiration precautions -PT/OT eval and treat -SUPERVISOR DEHYDROGENATION eval and TX for speech -NG--> tube feed/ Medications --> PEG this week -Aspiration high risk -Up to chair daily -Surgery consulted for PEG placement - family updated on this plan - holding till next week for stabilization of cerebral edema -Social work consult for rehab/SNF Malnutrition -Continue tube feed--> advance to goal -Gen surg consult for PEG placement this week Tobacco use -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 -Currently will be hospitalized without opportunity to smoke for extended period FEN -trend labs -replace lytes PRN -Tube feed at goal -Strict I/O -Continue bowel regimen --> miralax and senna Code Status Full code GI Prophylaxis: Pantoprazole IV DVT Prophylaxis: Heparin SQ Discussed with Dr Pagan Disposition: Remain in ICU Status Critical Care Time: >35 minutes Total critical care time caring for this patient with life threatening, unstable organ failure, including direct patient contact, management of life support systems, review of data including imaging and labs, discussions with other team members and physicians, excluding procedures.s. Associated attestation - Sonia Pagan MD - 02/15/2023 5:54 PM EDT I saw and evaluated the patient, participating in the driscoll portions of the service. I reviewed the NAVDEEP s note. I agree with the findings and plan. 67 yr old male with CAD sp CABG now admitted with L MCA Infarct (embolic from L atrial thrombus) with hemorrhagic transformation and dense R hemiplegia as well as cytotoxic edema improved with mannitol therapy. Encephalopathy has improved but R sided weakness persists. Plan to continue close monitoring, and tentative plan for PEG by IR in am. PROGRESS NOTE. STROKE SERVICE Patient Name:Catina Land Patient : 1955 Acct: [id number] Date of Admission: 02/05/2023 Room/Bed: T2-212/T2-[facility] A PCP: No primary care provider on file. Patient location ICU Remains in the hospital due to persistent unresolved acute issues, Subjective:see consult note New Complain: No documented events overnight. SBP have been 140-150's. He has remained afebrile. Na this morning 146, Os 317. CTH completed this morning. Upon seeing him this morning, still looking good this morning. He was suctioning himself at the bedside. Still with no gravity movement on the R side but there might have been a slight muscle contraction of the R quadricep today Sedation:No Diet/TF:NPO tube feeds Morales: Yes VTE prophylaxis: YES SCDs & heparin 5000 TID Antithrombotic therapy in first 24 hrs: YES aspirin Statin therapy for stroke stroke patients: High intensity Anticoagulation on AF patients: N/A no history of AF Activity: PT/OT Disposition: IP rehab Current Hospital Medications: Current Facility-Administered Medications: acetaminophen (Tylenol) tablet 650 mg, 650 mg, Oral, q6h PRN, 650 mg at 02/13/23 2328 OR acetaminophen (Tylenol) suppository 650 mg, 650 mg, Rectal, q6h PRN, Cris Harman, SOCCER REFEREE - ETHYLBENZENE CRACKING SUPERVISOR amLODIPine (Norvasc) tablet 10 mg, 10 mg, Oral, Daily, Cris Harman, SOCCER REFEREE - ETHYLBENZENE CRACKING SUPERVISOR, 10 mg at 02/14/23 0820 [Held by provider] aspirin chewable tablet 81 mg, 81 mg, Per G Tube, Daily, Cris Harman, SOCCER REFEREE - ETHYLBENZENE CRACKING SUPERVISOR, 81 mg at 02/12/23 0845 atorvastatin (Lipitor) tablet 40 mg, 40 mg, Per G Tube, Daily, Cris Harman, SOCCER REFEREE - ETHYLBENZENE CRACKING SUPERVISOR, 40 mg at 02/14/23 2100 bisacodyl (Dulcolax) suppository 10 mg, 10 mg, Rectal, Daily PRN, Cris Harman, SOCCER REFEREE - ETHYLBENZENE CRACKING SUPERVISOR bisacodyl (Dulcolax) suppository 10 mg, 10 mg, Rectal, Daily, Cris Harman, SOCCER REFEREE - ETHYLBENZENE CRACKING SUPERVISOR, 10 mg at 02/13/23 0909 carvedilol (Coreg) tablet 25 mg, 25 mg, Per G Tube, BID WC, Cris Harman, SOCCER REFEREE - ETHYLBENZENE CRACKING SUPERVISOR, 25 mg at 02/14/23 1745 heparin injection 5,000 Units, 5,000 Units, SubCUTAneous, 3 times per day, Cris Harman, SOCCER REFEREE - ETHYLBENZENE CRACKING SUPERVISOR, 5,000 Units at 02/15/23 0602 hydrALAZINE (Apresoline) injection 20 mg, 20 mg, IntraVENous, q4h PRN, Cris Harman, SOCCER REFEREE - ETHYLBENZENE CRACKING SUPERVISOR, 20 mg at 02/15/23 0602 ipratropium-albuterol (Duo-Neb) 0.5-2.5 mg/3 mL nebulizer solution 3 mL, 3 mL, Nebulization, TID PRN, Cris Harman, SOCCER REFEREE - ETHYLBENZENE CRACKING SUPERVISOR, 3 mL at 02/07/23 211 ketamine (Ketalar) injection, , , Code/trauma/sedation med, Neel Jacobson MD, 50 mg at 02/09/23 1118 labetalol (Normodyne,Trandate) injection 20 mg, 20 mg, IntraVENous, q4h PRN, Cris Harman, SOCCER REFEREE - ETHYLBENZENE CRACKING SUPERVISOR, 20 mg at 02/11/23 0511 lactated Ringer's infusion, 50 mL/hr, IntraVENous, Continuous, Sarah Randall APRN - ETHYLBENZENE CRACKING SUPERVISOR, Last Rate: 50 mL/hr at 02/13/23 183, 50 mL/hr at 02/13/23 183 lidocaine (Uro-Jet) 2 % gel, , Topical, Once, Cris Harman SOCCER REFEREE - ETHYLBENZENE CRACKING SUPERVISOR melatonin tablet 5 mg, 5 mg, Oral, Nightly PRN, Cris Harman, SOCCER REFEREE - ETHYLBENZENE CRACKING SUPERVISOR, 5 mg at 02/14/232108 ondansetron ODT (Zofran-ODT) disintegrating tablet 4 mg, 4 mg, Oral, q8h PRN OR ondansetron (Zofran) injection 4 mg, 4 mg, IntraVENous, q6h PRN, Cris Rojelio, SOCCER REFEREE - ETHYLBENZENE CRACKING SUPERVISOR pantoprazole (ProtoNix) EC tablet 40 mg, 40 mg, Oral, Nightly, 40 mg at 02/11/232132 OR pantoprazole (ProtoNix) injection 40 mg, 40 mg, IntraVENous, Nightly, Cris Rojelio, SOCCER REFEREE - ETHYLBENZENE CRACKING SUPERVISOR, 40 mg at 02/14/232108 Phenylephrine HCl (Pressors) 1 MG/10ML injection 0.2 mg, 0.2 mg, IntraVENous, PRN, Cris Harman, SOCCER REFEREE - ETHYLBENZENE CRACKING SUPERVISOR polyethylene glycol (PEG) 3350 (Miralax) packet 17 g, 17 g, Oral, BID, Sarah Randall SOCCER REFEREE - ETHYLBENZENE CRACKING SUPERVISOR, 17 g at 02/13/23 0909 polyvinyl alcohol (Liquifilm Tears) 1.4 % ophthalmic solution, , Both Eyes, PRN, Horace Garcia MD, Given at 02/13/23 1337 Propofol (Diprivan) injection, , IntraVENous, Code/trauma/sedation med, Neel Jacobson MD, 30 mg at 02/09/23 1126 senna-docusate sodium (Senokot-S) 8.6-50 MG tablet 2 tablet, 2 tablet, Oral, BID, Cirs Rojelio, SOCCER REFEREE - ETHYLBENZENE CRACKING SUPERVISOR, 2 tablet at 02/14/232108 sodium chloride 0.9 % infusion, 5-250 mL/hr, IntraVENous, PRN, Cris Harman, SOCCER REFEREE - ETHYLBENZENE CRACKING SUPERVISOR sodium chloride 0.9% (NS) flush 5-40 mL, 5-40 mL, IntraVENous, q12h, Cris Harman, SOCCER REFEREE - ETHYLBENZENE CRACKING SUPERVISOR, 10 mL at 02/13/23 2316 sodium chloride 0.9% (NS) flush 5-40 mL, 5-40 mL, IntraVENous, PRN, Cris Harman, SOCCER REFEREE - ETHYLBENZENE CRACKING SUPERVISOR Continuous Infusions: lactated Ringer's, 50 mL/hr, Last Rate: 50 mL/hr (02/13/23 1831) Allergies: Patient has no allergy information on record. Review of Systems Unable to perform ROS: Acuity of condition Objective: Telemetry: Arrhythmia:N/A Physical Examination: Patient Vitals for the past 8 hrs: BP Temp Temp src Pulse Resp SpO2 02/15/23 0700 (!) 149/79 -- -- 77 14 95 % 02/15/23 0645 (!) 156/78 -- -- 78 16 95 % 02/15/23 0600 (!) 174/83 -- -- 69 13 95 % 02/15/23 0500 (!) 156/82 -- -- 67 13 93 % 02/15/23 0400 138/69 -- -- 64 12 92 % 02/15/23 0300 (!) 167/80 -- -- 71 15 94 % 02/15/23 0200 139/72 -- -- 64 13 92 % 02/15/23 0100 (!) 159/83 -- -- 68 14 94 % 02/15/23 0000 (!) 158/85 36.6 C (97.9 F) Temporal 69 14 94 % I/O last 3 completed shifts: In: 3493 (50.4 mL/kg) [I.V.:1722 (24.8 mL/kg); NG/GT:1771] Out: 1730 (25 mL/kg) [Urine:1730 (0.7 mL/kg/hr)] Weight: 69.3 kg General Physical Examination: General:young male HEENT:Normocephalic, atraumaticl CV: S1+S2, RRR, no MRG. Pulm:CTA b/l, unlabored Abdomen: Soft NT/ND. BS + Skin: Intact without ulcers, breakdowns or discoloration Extremities: normal with no edema or cyanosis Orthopedic limitation; N/A Pulses: Intact peripherally Carotid auscultation :No bruits Neurological Examination: Higher Functions: Mental Status Exam: Level of Alertness:awake male Orientation: Aphasic Memory: Aphasic Fund of Knowledge: Aphasic Language: Globalaphasia Dysarthria present Cranial Nerves: -II Visual acuity: abnormal, limited due to patient unable to perform exam -II Visualfields: poor reliability due to patient level of consciousness or structural limitation -III Pupils (~ 3 mm OD, 3 mm OU) equal, round, reactive to light -III-IV- Extraocular Movements: intact -Nystagmus not present -Saccades and pursuits normal -V Facial sensation: appears normal Corneal's Intact bilateral -VII Facial strength:abnormal -VIII Hearing: intact -IX-X - Gag reflex not assessed -X Palate: abnormal -XI Shoulder shrug: abnormal -XII Tongue movement: not participant MotorExamination: Tone after evaluation of 4 limbs, the following findings applied: Spastic R arm Decreased R leg Normal L arm and leg -Bulk: normal -Muscle Stretch afterevaluation of all limbs, and axial musculature the following findings applied: Drift: Present R arm and leg -Reflexes: after evaluation of 4 limbs, the following findings applied ; normal all limbs -Plantar responce: Equivocal Sensory appears normal butlimited reliability, Coordination: Arms limited reliability of exam/ poor participation Legs Limited reliability/poor participation Tremors not participant Gait abnormal, patient unable to walk due to acute circumstances / bed rest / safety concerns NIHSS 1a Level of consciousness: 0 1b. LOC questions: 2=Performs neither task correctly 1c. LOC commands: 2 2. Best Gaze: 1=partial gaze palsy 3. Visual: 0=No visual loss 4. Facial Palsy: 2=Partial paralysis (total or near total paralysis of the lower face) 5a. Motor left arm: 0=No drift, limb holds 90 (or 45) degrees for full 10 seconds 5b. Motor right arm: 4=No movement 6a. motor left le=No drift, limb holds 90 (or 45) degrees for full 10 seconds 6b Motor right le=No effort against gravity, limb falls 7. Limb Ataxia: 0=Absent 8. Sensory: 0=Normal; no sensory loss 9. Best Language: 3=Mute, global aphasia; no usable speech or auditory comprehension 10. Dysarthria: 2=Severe; patient speech is so slurred as to be unintelligible in the absence of or our of proportion to any dysphagia, or is mute/anarthric 11. Extinction and Inattention: 0=No abnormality 12. Distal motor function: 0=Normal Total: 17 ANCILLARY Last 24hrs Recent Results (from the past 24 hour(s)) Osmolality Collection Time: 02/14/23 8:28 AM Result Value Ref Range OSMOLALITY, SERUM 323 (H) 280 - 300 mOsm/kg Sodium Collection Time: 02/14/23 8:28 AM Result Value Ref Range SODIUM 148 (H) 135 - 145 mmol/L CBC Collection Time: 02/15/23 12:00 AM Result Value Ref Range Auto WBC 10.2 3.6 - 10.7 10*3/uL RBC 4.83 4.40 - 5.90 10*6/uL Hemoglobin 14.4 13.0 - 18.0 g/dL Hematocrit 42.9 40.0 - 52.0 % MCV 88.8 80.0 - 98.0 fL MCH 29.9 26.0 - 34.0 pg MCHC 33.6 32.0 - 36.0 % RDW 14.1 11.5 - 14.5 % Platelets 289 140 - 440 10*3/uL MPV 9.2 7.4 - 12.4 fL Osmolality Collection Time: 02/15/23 12:00 AM Result Value Ref Range OSMOLALITY, SERUM 317 (H) 280 - 300 mOsm/kg Comprehensive metabolic panel Collection Time: 02/15/23 12:00 AM Result Value Ref Range SODIUM 146 (H) 135 - 145 mmol/L POTASSIUM 3.5 3.5 - 5.1 mmol/L CHLORIDE 111 (H) 98 - 107 mmol/L CARBON DIOXIDE 33 (H) 22 - 30 mmol/L ANION GAP 2 (L) 3 - 13 mmol/L UREA NITROGEN 34 (H) 9 - 20 mg/dL CREATININE 0.88 0.66 - 1.25 mg/dL GLUCOSE 125 (H) 70 - 100 mg/dL CALCIUM 8.6 8.4 - 10.4 mg/dL AST (SGOT) 55 (H) 15 - 46 U/L ALT 87 (H) 0 - 49 U/L ALKALINE PHOSPHATASE 80 38 - 126 U/L ALBUMIN 3.1 (L) 3.5 - 5.0 g/dL BILIRUBIN, TOTAL 0.7 0.2 - 1.3 mg/dL TOTAL PROTEIN 5.4 (L) 6.3 - 8.2 g/dL eGFR >90.0 >60.0 mL/min/1.73m*2 Bilirubin, direct Collection Time: 02/15/23 12:00 AM Result Value Ref Range BILIRUBIN, DIRECT 0.0 0.0 - 0.3 mg/dL Magnesium Collection Time: 02/15/23 12:00 AM Result Value Ref Range MAGNESIUM 2.2 1.6 - 2.3 mg/dL Radiology: EKG 02/05/23:IMPRESSION: Sinus rhythm Borderline prolonged NH interval Nonspecific intraventricular conduction delay Probable inferior infarct, old Anterior ST depressions Nonspecific T abnormalities, lateral leads CTH 02/05/23:IMPRESSION: Large left MCA territory infarct with hyperdense left MCA. Sulcal effacement and mild mass effect on the left lateral ventricles. ASPECT SCORE= 0. 1 mm rightward midline shift measured at the subtle signal. No herniation. Subtle hyperdensity in the left parietal convexity could represent subtle subarachnoid hemorrhage, cortical petechial hemorrhage or apposition of luna matter. CTA head & neck 02/05/23: IMPRESSION: Perfusion CT demonstrates large perfusion abnormality consistent with large left MCA territory infarct. CTA with left M1 occlusion. Nonenhancement of the left intracranial and intracranial ICA is nonspecific and could be due to significant back pressure resulting in nonenhancement versus occlusion which could appear similar. The left TONI is patent. Moderate to severe focal stenosis of the right COMMERCIAL LOAN SPECIALIST and mild to moderate focal stenosis of the left COMMERCIAL LOAN SPECIALIST at the P1-P2 junctions as discussed. Cervical spondylosis. Approximately 10% stenosis of the right cervical ICA by NASCET criteria. NASCET criteria not applicable for the left ICA. Nonspecific frothy secretions in the right maxillary sinus which can be seen with acute sinusitis if in the appropriate clinical setting. CTH 02/06/23:IMPRESSION: Unchanged nonhemorrhagic left MCA territory infarct with stable mass effect. CTH 02/07/23: IMPRESSION: Redemonstrated subacute large left MCA territory infarct. No interval hemorrhagic conversion. Interval worsening of mass effect with increased effacement of the left lateral ventricle, 7 mm rightward midline shift measured at the septum pellucidum, mass effect on the left vertebral peduncle and partial effacement of the ambient cisterns ECHO 02/07/23:Left Ventricle: Left ventricle size is normal. Moderate basal septal thickening. Normal left ventricular systolic function. EF by 2D Simpsons Biplane is 58%. Normal wall motion. Diastolic dysfunction present with normal LVEF. Right Ventricle: Not well visualized. Right ventricle size is normal. Normal systolic function. Mitral Valve: Mild (1+) regurgitation. -mildly increased L atrium CESARIO 02/09/23: Left Atrium: Left atrium is moderately dilated. Left atrial appendage thrombus noted. It is large and fills most of the appendage. It is ~35x 15 mm in one plane. Can be seen throughout all imaging planes. There is protruding mobile portion of the thrombus into the left atrium which measures in length x width 10 mmx 4 mm. Left Ventricle: Left ventricle size is normal. Mildly increased wall thickness. Normal left ventricular systolic function. The EF by visual approximation is 60%. Normal wall motion. Interatrial Septum: No interatrial shunt visualized on color Doppler. Agitated saline study was negative. No PFO present. Aorta: Normal sized annulus and ascending aorta. There is mild atherosclerosis present in the aortic arch. There is mild atherosclerosis in the descending aorta. No significant valvular abnormalities. ASSESSMENT / PLAN/RECOMMENDATIONS: Left MCA ischemic stroke with symptomatic hemorrhagic transformation HT1 ETIOLOGY:EMBOLIC from large left atrial thrombus Cytotoxic brain edema Severe brain compression with mass effect 11-13mm R hemiparesis R hemineglect ?R hemianopia Global aphasia Dysphagia Facial droop CAD HPL Hx of [place] Hx of CABG Hx of 3rd degree AV block PLAN -okay for PEG to be placed tomorrow from a neurological standpoint, agree with IR guided -hypercoagulation panel pending to be followed OP -goal Na 138-150 -continue free H20 50 Q4H -holding aspirin for now -atorvastatin 40 -okay for DVT ppx with heparin 5000 TID - neuro checks every hour - primary to manage SBP, goal <160 -rehab evaluation -OOB, PT/OT -will need OP neurology stroke follow up Family updated at the bedside. We will follow. 40 minutes Nurse practitioner time with the patient/family in regards to review of chart, exam, further planning and updates of care PHQ2 Over the las 2 weeks, how often have you been bothered by the following problems; - Little interest or pleasure in doing things Deferred - Feeling down, depressed or hopeless Deferred - Final score: deferred, patient aphasic Patient seen and discussed with Dr. Flores Physical Therapy Facility/Department: T2 Physical Therapy Daily Treatment Note NAME: Catina Land : 1955 Date of Service: 02/14/2023 Discharge Recommendations: IP Rehab PT Equipment Recommendations Equipment Needed: No Other: tbd Assessment Assessment: Pt present with significant decline in function. Noted generalized weakness with right side residual weakness from stroke. Impaired sitting and standing balance, requiring max asssit to dependent assist to maintain position. Poor trunk contro. and impaired postural reflex. Noted right sided neglect and aphasia. Recommend IP Rehab at discharge. Performance Deficits/Impairments: Decreased functional mobility , Decreased strength, Decreased balance, Decreased endurance, Decreased ADL status Requires PT Follow-Up: Yes Patient Diagnosis(es): The primary encounter diagnosis was Acute ischemic stroke (HCC). Diagnoses of Elevated troponin, Abnormal ECG, Cerebral edema (CMS/HCC) (HCC), and Leg edema, right were also pertinent to this visit. has a past medical history of CAD (coronary artery disease), History of coronary artery bypass graft x 2 (04/2014), Hyperlipidemia, [place], old (03/28/2014), Pneumonia, Presence of stent in coronary artery (03/2014), and Third degree AV block (CMS/HCC) (HCC) (03/28/2014). has a past surgical history that includes Coronary artery bypass graft (04/2014) and Coronary angioplasty (03/28/2014). Restrictions Restrictions/Precautions Restrictions/Precautions: Fall Risk, General Precautions, Modified Diet Required Braces or Orthoses?: No Lower Extremity Weight Bearing Restrictions Right Lower Extremity Weight Bearing: Weight Bearing As Tolerated Left Lower Extremity Weight Bearing: Weight Bearing As Tolerated Position Activity Restriction Other position/activity restrictions: PIV, NG tube, tele, condom cath Vision/Hearing Subjective General Chart Reviewed: Yes Patient Assessed for Rehabilitation Services: Yes Response To Previous Treatment: Patient unable to report, no changes reported from family or staff Family / Caregiver Present: No Diagnosis: acute ischemic stroke, elevated troponin, abnormal ECG Follows Commands: Within Functional Limits Subjective Subjective: Pt on the chair. Agree with PT treatment. RN cleared for PT. Pt aphasic(?expressive), follows 1 step commands.. Pain Assessment Pain Assessment: No/denies pain Cognition/Orientation Overall Cognitive Status: Exceptions Arousal/Alertness: Appropriate responses to stimuli Following Commands: Follows one step commands with repetition, Follows one step commands with increased time Safety Judgement: Decreased awareness of need for assistance Initiation: Requires cues for some Sequencing: Requires cues for some Cognition Comment: pt aphasic, unable to answer orientation questions at this time Objective Bed Mobility NA, pt on the chair. Mechanical lift by nursing. Transfers Sit to stand max assist from EOB. Needing mod assist to lean forward to initiate sit to stand. Pt using LUE to push off from chair, PT positioned anteriorly to the right to block right knee. Upon standing pt using backrest of another standard chair with verbal cueing. Performed sit to stand 2 more times. Pt incontinent with bowel. Ambulation NA, unable a this time due to significant weakness and inability to stand without max assist. Balance Sitting at EOB with no back support, needing mod assist to maintain position. Pt using LUE to pull self forward but difficulty keeping right side forward. Static standing with max assist, needing to block right knee to maintain position due to knee buckling. LUE support with standard chairs back rest. Verbal and manual cues to correct posture, assist to rotate pelvis posteriorly. Performed weight shifting to the RLE to facilitate weight bearing and activate hip and knee extensors. Exercise Performed PROM on RLE in D1flex to ext. Plan Times per Week: 3-5 Plan Weeks: 2 Current Treatment Recommendations: Strengthening, ROM, Balance Training, Gait Training, Functional Mobility Training, Transfer Training, Safety Education & Training, Equipment Evaluation, Education, & procurement, Patient/Caregiver Education & Training, Neuromuscular Re-education Safety Safety Devices Safety Devices in Place: Yes Type of Devices: Gait belt, Left in chair, Call light within reach, Nurse notified Restraints Restraints Initially in Place: Yes Outcomes Score AM-PAC Score AM-PAC Inpatient Mobility Raw Score: 7 Mobility Inpatient CMS G-Code Modifier: CM Goals Encounter Problems Encounter Problems (Active) Mobility Patient will ambulate 25 feet with CGA and stephanie-walker or pyramid cane in order to improve safety and independence with mobility. (Not Progressing) Start: 02/07/23 Expected End: 02/21/23 Pain - Adult Transfers Patient will perform bed mobility with SBA in order to improve independence and prepare for out of bed mobility. (Not Addressed) Start: 02/07/23 Expected End: 02/21/23 Patient will complete functional transfer bed to/from chair with SBA in order to prepare for ambulation. (Progressing) Start: 02/07/23 Expected End: 02/21/23 Patient will complete sit to stand transfer with SBA in order to improve safety and prepare for out of bed mobility. (Progressing) Start: 02/07/23 Expected End: 02/21/23 Education Education Given To: Patient Education Provided: PT Role, Plan of Care, Family Education Education Method: Verbal Education Outcome: Unable to verbalize, Continued education needed Therapy Time Individual Co-treatment Time In 1140 Time Out 1205 Minutes 25 Timed Code Treatment Minutes: 25 Minutes (FA x2) Dominic Verma PT Speech-Language Pathology Facility/Department: [facility] T2-212 SPEECH THERAPY TREATMENT NAME: Catina Land : 1955 ADMISSION DATE: 02/05/2023 ADMITTING DIAGNOSIS: has History of coronary artery bypass graft x 2; Hyperlipidemia; Presence of stent in coronary artery; CAD (coronary artery disease); WA, old; Acute ischemic stroke (HCC); Arterial ischemic stroke, MCA (middle cerebral artery), left, acute (HCC); Brain compression (CMS/HCC) (HCC); Cerebral edema (CMS/HCC) (HCC); and Troponin level elevated on their problem list. Not on File Onset Date: 02/05/23 Pain: managed by RN General General Chart Reviewed: Yes Patient Assessed for Rehabilitation Services: Yes Family / Caregiver Present: No General Comment PPE Worn: gloves Subjective Subjective: Limited verbal output. Right neglect is still noted. S: Patient is upright in reclining chair, agreeable to ST. O: To address speech and language goals A: Simple Yes/No questions - 60% acc with perseveration in yes answers, increases to 80% with increased cueing of no answers. Patient tends to wave off hand if answer if "no" versus utilizing thumbs down. Choose between 2 objects - with common objects in room, 60% acc. Patient's accuracy increases slightly when patient is presented with each object prior to being asked to select between 2 items. Verbal speech of verb sounds - Ahhh, No, and Yeah are all produced quickly. Patient is able to state his name after several attempts. Education Education Given: communication P: Recommend patient continue speech garcia goals with ST per plan of care. Treatment Plan Requires SUPERVISOR DEHYDROGENATION Intervention: Yes Frequency/Duration: 3 days/wk for 2 weeks Treatment/Goals Encounter Problems Encounter Problems (Active) Cognition/Visual Perception Patient will participate in repeat cognitive assessment as appropriate. Start: 02/05/23 Patient will utilize memory intervention for task completion Start: 02/05/23 Patient will utilize problem-solving intervention for task completion Start: 02/05/23 Communication/Dysarthria Patient will follow 1 step commands (Progressing) Start: 02/07/23 Expected End: 02/21/23 Patient will participate in further assessment of speech and language skills (Progressing) Start: 02/07/23 Expected End: 02/21/23 Patient participates in automatic speech tasks (Not Progressing) Start: 02/07/23 Expected End: 02/21/23 SUPERVISOR DEHYDROGENATION Misc Yes/no questions (Progressing) Start: 02/07/23 Expected End: 02/21/23 Pt will answer simple yes/no questions with 70% accuracy. Swallowing Patient will complete oropharyngeal strengthening exercises to improve swallow function (Progressing) Start: 02/06/23 Expected End: 02/21/23 Patient will participate in repeat clinical dysphagia evaluation (Completed) Start: 02/06/23 Expected End: 02/21/23 Met: 02/07/23 Patient will tolerate therapeutic trials of recommended consistency without clinical signs and symptoms of aspiration (Progressing) Start: 02/06/23 Expected End: 02/21/23 Therapy Time Time Out: 1116 Total Time: 14 minutes DAYANA Proctor 02/14/2023 11:21 AM PROGRESS NOTE. STROKE SERVICE Patient Name:Catina Land Patient : 1955 Acct: [id number] Date of Admission: 02/05/2023 Room/Bed: T2-212/T2-212 A PCP: No primary care provider on file. Patient location ICU Remains in the hospital due to persistent unresolved acute issues, Subjective:see consult note New Complain: Looking good this morning. He was laying in bed awake suctioning himself as needed. He is following commands of smile and wiggle toes but continues to be aphasic. There is no movement of the R side of the arm or leg. CTH performed yesterday and reviewed again. Overnight no significant documentation. SBP had been 140-160's. He has remained afebrile. Sedation:No Diet/TF:NPO tube feeds Morales: Yes VTE prophylaxis: YES SCDs & heparin 5000 TID Antithrombotic therapy in first 24 hrs: YES aspirin Statin therapy for stroke stroke patients: High intensity Anticoagulation on AF patients: N/A no history of AF Activity: PT/OT Disposition: IP rehab Current Hospital Medications: Current Facility-Administered Medications: acetaminophen (Tylenol) tablet 650 mg, 650 mg, Oral, q6h PRN, 650 mg at 02/13/23 2328 OR acetaminophen (Tylenol) suppository 650 mg, 650 mg, Rectal, q6h PRN, Cris Harman, SOCCER REFEREE - ETHYLBENZENE CRACKING SUPERVISOR amLODIPine (Norvasc) tablet 10 mg, 10 mg, Oral, Daily, Cris Harman, SOCCER REFEREE - ETHYLBENZENE CRACKING SUPERVISOR, 10 mg at 02/14/23 0820 [Held by provider] aspirin chewable tablet 81 mg, 81 mg, Per G Tube, Daily, Cris Harman, SOCCER REFEREE - ETHYLBENZENE CRACKING SUPERVISOR, 81 mg at 02/12/23 0845 atorvastatin (Lipitor) tablet 40 mg, 40 mg, Per G Tube, Daily, Cris Harman, SOCCER REFEREE - ETHYLBENZENE CRACKING SUPERVISOR, 40 mg at 02/13/23 2019 bisacodyl (Dulcolax) suppository 10 mg, 10 mg, Rectal, Daily PRN, Cris Harman, SOCCER REFEREE - ETHYLBENZENE CRACKING SUPERVISOR bisacodyl (Dulcolax) suppository 10 mg, 10 mg, Rectal, Daily, Cris Harman, SOCCER REFEREE - ETHYLBENZENE CRACKING SUPERVISOR, 10 mg at 02/13/23 0909 carvedilol (Coreg) tablet 25 mg, 25 mg, Per G Tube, BID WC, Cris Harman, SOCCER REFEREE - ETHYLBENZENE CRACKING SUPERVISOR, 25 mg at 02/14/23 0820 heparin injection 5,000 Units, 5,000 Units, SubCUTAneous, 3 times per day, Cris Harman, SOCCER REFEREE - ETHYLBENZENE CRACKING SUPERVISOR, 5,000 Units at 02/14/23 0635 hydrALAZINE (Apresoline) injection 20 mg, 20 mg, IntraVENous, q4h PRN, Cris Harman, SOCCER REFEREE - ETHYLBENZENE CRACKING SUPERVISOR, 20 mg at 02/12/23 0840 ipratropium-albuterol (Duo-Neb) 0.5-2.5 mg/3 mL nebulizer solution 3 mL, 3 mL, Nebulization, TID PRN, Cris Harman, SOCCER REFEREE - ETHYLBENZENE CRACKING SUPERVISOR, 3 mL at 02/07/23 2113 ketamine (Ketalar) injection, , , Code/trauma/sedation med, Neel Jacobson MD, 50 mg at 02/09/23 1118 labetalol (Normodyne,Trandate) injection 20 mg, 20 mg, IntraVENous, q4h PRN, Cris Rojelio, SOCCER REFEREE - ETHYLBENZENE CRACKING SUPERVISOR, 20 mg at 02/11/23 0511 lactated Ringer's infusion, 50 mL/hr, IntraVENous, Continuous, Sarah Berrodin-Estephanie, SOCCER REFEREE - ETHYLBENZENE CRACKING SUPERVISOR, Last Rate: 50 mL/hr at 02/13/23 183, 50 mL/hr at 02/13/23 1831 lidocaine (Uro-Jet) 2 % gel, , Topical, Once, Cris Rojelio, SOCCER REFEREE - ETHYLBENZENE CRACKING SUPERVISOR melatonin tablet 5 mg, 5 mg, Oral, Nightly PRN, Cris Harman, SOCCER REFEREE - ETHYLBENZENE CRACKING SUPERVISOR, 5 mg at 02/13/23 2328 ondansetron ODT (Zofran-ODT) disintegrating tablet 4 mg, 4 mg, Oral, q8h PRN OR ondansetron (Zofran) injection 4 mg, 4 mg, IntraVENous, q6h PRN, Cris Harman, SOCCER REFEREE - ETHYLBENZENE CRACKING SUPERVISOR pantoprazole (ProtoNix) EC tablet 40 mg, 40 mg, Oral, Nightly, 40 mg at 02/11/23 2133 OR pantoprazole (ProtoNix) injection 40 mg, 40 mg, IntraVENous, Nightly, Cris Harman, SOCCER REFEREE - ETHYLBENZENE CRACKING SUPERVISOR, 40 mg at 02/13/23 2020 Phenylephrine HCl (Pressors) 1 MG/10ML injection 0.2 mg, 0.2 mg, IntraVENous, PRN, Cris Harman, SOCCER REFEREE - ETHYLBENZENE CRACKING SUPERVISOR polyethylene glycol (PEG) 3350 (Miralax) packet 17 g, 17 g, Oral, BID, Sarah Randall, SOCCER REFEREE - ETHYLBENZENE CRACKING SUPERVISOR, 17 g at 02/13/23 0909 polyvinyl alcohol (Liquifilm Tears) 1.4 % ophthalmic solution, , Both Eyes, PRN, Horace Garcia MD, Given at 02/13/23 1337 Propofol (Diprivan) injection, , IntraVENous, Code/trauma/sedation med, Neel Jacobson MD, 30 mg at 02/09/23 1126 senna-docusate sodium (Senokot-S) 8.6-50 MG tablet 2 tablet, 2 tablet, Oral, BID, Cris Harman, SOCCER REFEREE - ETHYLBENZENE CRACKING SUPERVISOR, 2 tablet at 02/14/23 0820 sodium chloride 0.9 % infusion, 5-250 mL/hr, IntraVENous, PRN, Cris Harman, SOCCER REFEREE - ETHYLBENZENE CRACKING SUPERVISOR sodium chloride 0.9% (NS) flush 5-40 mL, 5-40 mL, IntraVENous, q12h, Cris Harman, SOCCER REFEREE - ETHYLBENZENE CRACKING SUPERVISOR, 10 mL at 02/13/23 2316 sodium chloride 0.9% (NS) flush 5-40 mL, 5-40 mL, IntraVENous, PRN, Cris Harman, SOCCER REFEREE - ETHYLBENZENE CRACKING SUPERVISOR Continuous Infusions: lactated Ringer's, 50 mL/hr, Last Rate: 50 mL/hr (02/13/23 1831) Allergies: Patient has no allergy information on record. Review of Systems Unable to perform ROS: Acuity of condition Objective: Telemetry: Arrhythmia:N/A Physical Examination: Patient Vitals for the past 8 hrs: BP Temp Temp src Pulse Resp SpO2 02/14/23 1000 125/71 -- -- 66 12 97 % 02/14/23 0900 139/75 -- -- 69 13 -- 02/14/23 0800 (!) 167/84 37.1 C (98.8 F) Temporal 73 12 93 % 02/14/23 0700 (!) 164/82 -- -- 70 13 93 % 02/14/23 0600 119/70 -- -- 65 11 96 % 02/14/23 0500 (!) 159/79 -- -- 72 12 96 % 02/14/23 0400 131/74 36.6 C (97.9 F) Temporal 64 11 95 % I/O last 3 completed shifts: In: 2187 (31.6 mL/kg) [P.O.:50; I.V.:1035 (14.9 mL/kg); NG/GT:1102] Out: 945 (13.6 mL/kg) [Urine:945 (0.4 mL/kg/hr)] Weight: 69.3 kg General Physical Examination: General:young male HEENT:Normocephalic, atraumaticl CV: S1+S2, RRR, no MRG. Pulm:CTA b/l, unlabored Abdomen: Soft NT/ND. BS + Skin: Intact without ulcers, breakdowns or discoloration Extremities: normal with no edema or cyanosis Orthopedic limitation; N/A Pulses: Intact peripherally Carotid auscultation :No bruits Neurological Examination: Higher Functions: Mental Status Exam: Level of Alertness:awake male Orientation: Aphasic Memory: Aphasic Fund of Knowledge: Aphasic Language: Globalaphasia Dysarthria present Cranial Nerves: -II Visual acuity: abnormal, limited due to patient unable to perform exam -II Visualfields: poor reliability due to patient level of consciousness or structural limitation -III Pupils (~ 3 mm OD, 3 mm OU) equal, round, reactive to light -III-IV- Extraocular Movements: intact -Nystagmus not present -Saccades and pursuits normal -V Facial sensation: appears normal Corneal's Intact bilateral -VII Facial strength:abnormal -VIII Hearing: intact -IX-X - Gag reflex not assessed -X Palate: abnormal -XI Shoulder shrug: abnormal -XII Tongue movement: not participant MotorExamination: Tone after evaluation of 4 limbs, the following findings applied: Spastic R arm Decreased R leg Normal L arm and leg -Bulk: normal -Muscle Stretch afterevaluation of all limbs, and axial musculature the following findings applied: Drift: Present R arm and leg -Reflexes: after evaluation of 4 limbs, the following findings applied ; normal all limbs -Plantar responce: Equivocal Sensory appears normal butlimited reliability, Coordination: Arms limited reliability of exam/ poor participation Legs Limited reliability/poor participation Tremors not participant Gait abnormal, patient unable to walk due to acute circumstances / bed rest / safety concerns NIHSS 1a Level of consciousness: 0 1b. LOC questions: 2=Performs neither task correctly 1c. LOC commands: 2 2. Best Gaze: 1=partial gaze palsy 3. Visual: 0=No visual loss 4. Facial Palsy: 2=Partial paralysis (total or near total paralysis of the lower face) 5a. Motor left arm: 0=No drift, limb holds 90 (or 45) degrees for full 10 seconds 5b. Motor right arm: 4=No movement 6a. motor left le=No drift, limb holds 90 (or 45) degrees for full 10 seconds 6b Motor right le=No effort against gravity, limb falls 7. Limb Ataxia: 0=Absent 8. Sensory: 0=Normal; no sensory loss 9. Best Language: 3=Mute, global aphasia; no usable speech or auditory comprehension 10. Dysarthria: 2=Severe; patient speech is so slurred as to be unintelligible in the absence of or our of proportion to any dysphagia, or is mute/anarthric 11. Extinction and Inattention: 0=No abnormality 12. Distal motor function: 0=Normal Total: 17 ANCILLARY Last 24hrs Recent Results (from the past 24 hour(s)) Osmolality Collection Time: 02/13/23 4:29 PM Result Value Ref Range OSMOLALITY, SERUM 331 (H) 280 - 300 mOsm/kg Sodium Collection Time: 02/13/23 4:29 PM Result Value Ref Range SODIUM 151 (H) 135 - 145 mmol/L CBC Collection Time: 02/14/23 12:01 AM Result Value Ref Range Auto WBC 8.8 3.6 - 10.7 10*3/uL RBC 4.98 4.40 - 5.90 10*6/uL Hemoglobin 15.0 13.0 - 18.0 g/dL Hematocrit 44.5 40.0 - 52.0 % MCV 89.2 80.0 - 98.0 fL MCH 30.1 26.0 - 34.0 pg MCHC 33.7 32.0 - 36.0 % RDW 14.0 11.5 - 14.5 % Platelets 286 140 - 440 10*3/uL MPV 9.4 7.4 - 12.4 fL Osmolality Collection Time: 02/14/23 12:01 AM Result Value Ref Range OSMOLALITY, SERUM 323 (H) 280 - 300 mOsm/kg Comprehensive metabolic panel Collection Time: 02/14/23 12:01 AM Result Value Ref Range SODIUM 149 (H) 135 - 145 mmol/L POTASSIUM 3.7 3.5 - 5.1 mmol/L CHLORIDE 114 (H) 98 - 107 mmol/L CARBON DIOXIDE 30 22 - 30 mmol/L ANION GAP 5 3 - 13 mmol/L UREA NITROGEN 40 (H) 9 - 20 mg/dL CREATININE 0.90 0.66 - 1.25 mg/dL GLUCOSE 110 (H) 70 - 100 mg/dL CALCIUM 8.6 8.4 - 10.4 mg/dL AST (SGOT) 64 (H) 15 - 46 U/L ALT 93 (H) 0 - 49 U/L ALKALINE PHOSPHATASE 79 38 - 126 U/L ALBUMIN 3.1 (L) 3.5 - 5.0 g/dL BILIRUBIN, TOTAL 0.8 0.2 - 1.3 mg/dL TOTAL PROTEIN 5.7 (L) 6.3 - 8.2 g/dL eGFR >90.0 >60.0 mL/min/1.73m*2 Bilirubin, direct Collection Time: 02/14/23 12:01 AM Result Value Ref Range BILIRUBIN, DIRECT 0.0 0.0 - 0.3 mg/dL Osmolality Collection Time: 02/14/23 8:28 AM Result Value Ref Range OSMOLALITY, SERUM 323 (H) 280 - 300 mOsm/kg Sodium Collection Time: 02/14/23 8:28 AM Result Value Ref Range SODIUM 148 (H) 135 - 145 mmol/L Radiology: EKG 02/05/23:IMPRESSION: Sinus rhythm Borderline prolonged NH interval Nonspecific intraventricular conduction delay Probable inferior infarct, old Anterior ST depressions Nonspecific T abnormalities, lateral leads CTH 02/05/23:IMPRESSION: Large left MCA territory infarct with hyperdense left MCA. Sulcal effacement and mild mass effect on the left lateral ventricles. ASPECT SCORE= 0. 1 mm rightward midline shift measured at the subtle signal. No herniation. Subtle hyperdensity in the left parietal convexity could represent subtle subarachnoid hemorrhage, cortical petechial hemorrhage or apposition of luna matter. CTA head & neck 02/05/23: IMPRESSION: Perfusion CT demonstrates large perfusion abnormality consistent with large left MCA territory infarct. CTA with left M1 occlusion. Nonenhancement of the left intracranial and intracranial ICA is nonspecific and could be due to significant back pressure resulting in nonenhancement versus occlusion which could appear similar. The left TONI is patent. Moderate to severe focal stenosis of the right COMMERCIAL LOAN SPECIALIST and mild to moderate focal stenosis of the left COMMERCIAL LOAN SPECIALIST at the P1-P2 junctions as discussed. Cervical spondylosis. Approximately 10% stenosis of the right cervical ICA by NASCET criteria. NASCET criteria not applicable for the left ICA. Nonspecific frothy secretions in the right maxillary sinus which can be seen with acute sinusitis if in the appropriate clinical setting. CTH 02/06/23:IMPRESSION: Unchanged nonhemorrhagic left MCA territory infarct with stable mass effect. CTH 02/07/23: IMPRESSION: Redemonstrated subacute large left MCA territory infarct. No interval hemorrhagic conversion. Interval worsening of mass effect with increased effacement of the left lateral ventricle, 7 mm rightward midline shift measured at the septum pellucidum, mass effect on the left vertebral peduncle and partial effacement of the ambient cisterns ECHO 02/07/23:Left Ventricle: Left ventricle size is normal. Moderate basal septal thickening. Normal left ventricular systolic function. EF by 2D Simpsons Biplane is 58%. Normal wall motion. Diastolic dysfunction present with normal LVEF. Right Ventricle: Not well visualized. Right ventricle size is normal. Normal systolic function. Mitral Valve: Mild (1+) regurgitation. -mildly increased L atrium CESARIO 02/09/23: Left Atrium: Left atrium is moderately dilated. Left atrial appendage thrombus noted. It is large and fills most of the appendage. It is ~35x 15 mm in one plane. Can be seen throughout all imaging planes. There is protruding mobile portion of the thrombus into the left atrium which measures in length x width 10 mmx 4 mm. Left Ventricle: Left ventricle size is normal. Mildly increased wall thickness. Normal left ventricular systolic function. The EF by visual approximation is 60%. Normal wall motion. Interatrial Septum: No interatrial shunt visualized on color Doppler. Agitated saline study was negative. No PFO present. Aorta: Normal sized annulus and ascending aorta. There is mild atherosclerosis present in the aortic arch. There is mild atherosclerosis in the descending aorta. No significant valvular abnormalities. ASSESSMENT / PLAN/RECOMMENDATIONS: Left MCA ischemic stroke with symptomatic hemorrhagic transformation HT1 ETIOLOGY:EMBOLIC from large left atrial thrombus Cytotoxic brain edema Severe brain compression with mass effect 11-13mm R hemiparesis R hemineglect ?R hemianopia Global aphasia Dysphagia Facial droop CAD HPL Hx of [place] Hx of CABG Hx of 3rd degree AV block PLAN -CTH pending for tomorrow 02/15 -CXR tomorrow morning 02/15 -hypercoagulation panel pending to be followed OP -goal Na 138-150 -continue free H20 50 Q4H -holding aspirin for now -atorvastatin 40 -okay for DVT ppx with heparin 5000 TID - neuro checks every hour -consulted general surgery for PEG placement, would like to hold off on PEG placement til at least Tuesday for fear of anesthesia in this patient - primary to manage SBP, goal <160 -rehab evaluation -OOB, PT/OT -will need OP neurology stroke follow up Family updated at the bedside. We will follow. 40 minutes Nurse practitioner time with the patient/family in regards to review of chart, exam, further planning and updates of care PHQ2 Over the las 2 weeks, how often have you been bothered by the following problems; - Little interest or pleasure in doing things Deferred - Feeling down, depressed or hopeless Deferred - Final score: deferred, patient aphasic Patient seen and discussed with Dr. Flores Images from the original note were not included. Department of General Surgery Daily Progress Note ADMIT DATE: 02/05/2023 TODAY'S DATE: 02/14/2023 SUBJECTIVE: - awaiting formal SUPERVISOR DEHYDROGENATION re evaluation - NGT in place this am, appears active - continues to have bowel function - CT head ordered for today, but patient appears more awake and interactive this am ROS: Noted above unless otherwise mentioned OBJECTIVE: VITALS: Temp: [36.4 C (97.5 F)-37.1 C (98.8 F)] 37.1 C (98.8 F) Heart Rate: [63-74] 69 Resp: [11-17] 13 BP: (119-167)/(70-88) 139/75 INTAKE/OUTPUT: Intake/Output Summary (Last 24 hours) at 02/14/2023 0942 Last data filed at 02/14/2023 0800 Gross per 24 hour Intake 1867 ml Output 730 ml Net 1137 ml I/O last 3 completed shifts: In: 2187 (31.6 mL/kg) [P.O.:50; I.V.:1035 (14.9 mL/kg); NG/GT:1102] Out: 945 (13.6 mL/kg) [Urine:945 (0.4 mL/kg/hr)] Weight: 69.3 kg I/O this shift: In: - Out: 60 [Urine:60] PHYSICAL EXAM: Gen: NAD, pain well controlled HEENT: NGT in place Heart: RRR, well perfused Lungs: symmetric chest rise, normal work of breathing, breath sounds b/l Abd: soft, non tender, non distended. Non rigid. Ext: no c/c/e no gross deformities Skin: warm, well perfused, no obvious rashes, cellulitis or gross discoloration LABS CBC: Auto WBC Date Value Ref Range Status 02/14/2023 8.8 3.6 - 10.7 10*3/uL Final 02/13/2023 7.9 3.6 - 10.7 10*3/uL Final 02/12/2023 7.1 3.6 - 10.7 10*3/uL Final Hemoglobin Date Value Ref Range Status 02/14/2023 15.0 13.0 - 18.0 g/dL Final 02/13/2023 16.3 13.0 - 18.0 g/dL Final 02/12/2023 15.4 13.0 - 18.0 g/dL Final Platelets Date Value Ref Range Status 02/14/2023 286 140 - 440 10*3/uL Final 02/13/2023 308 140 - 440 10*3/uL Final 02/12/2023 258 140 - 440 10*3/uL Final BMP: SODIUM Date Value Ref Range Status 02/14/2023 149 (H) 135 - 145 mmol/L Final 02/13/2023 151 (H) 135 - 145 mmol/L Final 02/13/2023 150 (H) 135 - 145 mmol/L Final POTASSIUM Date Value Ref Range Status 02/14/2023 3.7 3.5 - 5.1 mmol/L Final 02/13/2023 3.8 3.5 - 5.1 mmol/L Final 02/12/2023 4.0 3.5 - 5.1 mmol/L Final CHLORIDE Date Value Ref Range Status 02/14/2023 114 (H) 98 - 107 mmol/L Final 02/13/2023 114 (H) 98 - 107 mmol/L Final 02/12/2023 113 (H) 98 - 107 mmol/L Final CARBON DIOXIDE Date Value Ref Range Status 02/14/2023 30 22 - 30 mmol/L Final 02/13/2023 28 22 - 30 mmol/L Final 02/12/2023 28 22 - 30 mmol/L Final UREA NITROGEN Date Value Ref Range Status 02/14/2023 40 (H) 9 - 20 mg/dL Final 02/13/2023 40 (H) 9 - 20 mg/dL Final 02/12/2023 25 (H) 9 - 20 mg/dL Final CREATININE Date Value Ref Range Status 02/14/2023 0.90 0.66 - 1.25 mg/dL Final 02/13/2023 0.95 0.66 - 1.25 mg/dL Final 02/12/2023 0.84 0.66 - 1.25 mg/dL Final 01/26/2022 1.10 0.52 - 1.25 mg/dL Final Hepatic: AST (SGOT) Date Value Ref Range Status 02/14/2023 64 (H) 15 - 46 U/L Final 02/13/2023 69 (H) 15 - 46 U/L Final 02/13/2023 72 (H) 15 - 46 U/L Final ALT Date Value Ref Range Status 02/14/2023 93 (H) 0 - 49 U/L Final 02/13/2023 98 (H) 0 - 49 U/L Final 02/13/2023 96 (H) 0 - 49 U/L Final ALBUMIN Date Value Ref Range Status 02/14/2023 3.1 (L) 3.5 - 5.0 g/dL Final 02/13/2023 3.6 3.5 - 5.0 g/dL Final 02/13/2023 3.5 3.5 - 5.0 g/dL Final BILIRUBIN, TOTAL Date Value Ref Range Status 02/14/2023 0.8 0.2 - 1.3 mg/dL Final 02/13/2023 0.9 0.2 - 1.3 mg/dL Final 02/13/2023 1.0 0.2 - 1.3 mg/dL Final BILIRUBIN, DIRECT Date Value Ref Range Status 02/14/2023 0.0 0.0 - 0.3 mg/dL Final 02/13/2023 0.0 0.0 - 0.3 mg/dL Final ALKALINE PHOSPHATASE Date Value Ref Range Status 02/14/2023 79 38 - 126 U/L Final 02/13/2023 94 38 - 126 U/L Final 02/13/2023 84 38 - 126 U/L Final Current Inpatient Medications Scheduled Meds:amLODIPine, 10 mg, Oral, Daily [Held by provider] aspirin, 81 mg, Per G Tube, Daily atorvastatin, 40 mg, Per G Tube, Daily bisacodyl, 10 mg, Rectal, Daily carvedilol, 25 mg, Per G Tube, BID WC heparin, 5,000 Units, SubCUTAneous, 3 times per day lidocaine, , Topical, Once pantoprazole, 40 mg, Oral, Nightly Or pantoprazole, 40 mg, IntraVENous, Nightly polyethylene glycol (PEG) 3350, 17 g, Oral, BID senna-docusate sodium, 2 tablet, Oral, BID sodium chloride 0.9%, 5-40 mL, IntraVENous, q12h Continuous Infusions:lactated Ringer's, 50 mL/hr, Last Rate: 50 mL/hr (02/13/23 183) PRN Meds:PRN medications: acetaminophen OR acetaminophen, bisacodyl, hydrALAZINE, ipratropium-albuterol, ketamine, labetalol, melatonin, ondansetron ODT OR ondansetron, Phenylephrine HCl (Pressors), artificial tears, Propofol, sodium chloride, sodium chloride 0.9% ASSESSMENT AND PLAN: This is a 67 y.o. male with history of CAD/WA s/p PCI and CABG who presents with a large L MCA stoke. He is now recovering but there is concern for dysphagia and aspiration. - As patient is more active today, would recommend SUPERVISOR DEHYDROGENATION evaluation - given left atrial thrombus would want to limit anesthesia, likely would benefit from IR G tube placement with T fasteners as opposed to lap assisted G tube - would continue NGT feeds at this time - Will continue to follow NCC patient assessment - Remainder of care per primary service - General surgery will continue to follow. Will discuss with Dr. Jose Luis Felix MD General Surgery PGY-5 02/14/23 9:42 AM This note may have been dictated using [employer] Practice Edition 2.6 and/or [employer] Voice Recognition Feature. The document was proofread; however, unrecognized voice recognition replenishment analyst errors may be present. ICU Progress Note Name: Catina Land : 1955(67 y.o.) Date: 02/14/23 Team: MICU Attending: Dr Pagan Subjective: Hospital Summary: 67 YO male W/PMH of CAD, WA, (s/p CABG & stenting), and HLD. Patient presented to [facility] ED on 02/05/23 after being found down on floor of bathroom covered in vomit by EMS. Family had called for a well check after being unable to contact the patient. Last known well time was sometime Tuesday02/03/23 in the AM. Patient was last seen by neighbors at that time. CT imaging showed L MCA infarct. Out of window for TNK, not amenable to thrombectomy d/t large established core infarct. He was admitted to T2 ICU. Cardiology following d/t NSTEMI med manage with beta courtney & statin. He was briefly on 3% NaCl for cerebral edema & mass effect. Dobhoff in place for nutrition d/t ongoing speech therapy for dysphagia. 02/06 CT head showed L MCA territory infarct w/ stable mass effect. BP overnight 150-170. Right side flaccid following commands L side. Code status changed to Full code d/t improvement. 3% NS @ 50ml/h 4/3 Increased SBP 160-190, requiring multiple PRN meds. 3% NaCl @ 50ml/h. Follows simple commands on left right flaccid / Ongoing hypertension overnight SBP 180-210, multiple PRN meds given. + right facial droop and R hemiparesis. Able to follow basic commands w/ left upper and lower extr. CTH with increased Cytotoxic edema and compression 02/09 - Increased LOC - increased agitation - starting PO antihypertensive meds - CESARIO completed - Large AA thrombus 02/10 - Pulled out Dobhoff overnight - Surgery consulted for PEG tube per Neuro - surgery will likely place next week if condition allows-- Awaiting MRI today 02/11 - MRI reviewed per neuro with increased swelling - this AM with decrease in LOC compared to exam 02/10 - will start Mannitol every 8 hours with serum Osmo prior to administration -Neuro Crit Care is holding on AC at this time d/t increased risk of bleeding. Family to discuss life support orders 02/12 Improved mentation. Mannitol held 12/09 Osmolality 320. 02/13 Improved mentation, follows commands, interactive. Bms x 5 Osm 331 and Na 156 Increased free water Interval Events: Patient with uneventful night. Alert and oriented following commands. Nods appropriately to questions. Suctioning out his own mouth. Up in chair. Scheduled Meds: amLODIPine, 10 mg, Oral, Daily [Held by provider] aspirin, 81 mg, Per G Tube, Daily atorvastatin, 40 mg, Per G Tube, Daily bisacodyl, 10 mg, Rectal, Daily carvedilol, 25 mg, Per G Tube, BID WC heparin, 5,000 Units, SubCUTAneous, 3 times per day lidocaine, , Topical, Once pantoprazole, 40 mg, Oral, Nightly Or pantoprazole, 40 mg, IntraVENous, Nightly polyethylene glycol (PEG) 3350, 17 g, Oral, BID senna-docusate sodium, 2 tablet, Oral, BID sodium chloride 0.9%, 5-40 mL, IntraVENous, q12h Continuous Infusions: lactated Ringer's, 50 mL/hr, Last Rate: 50 mL/hr (02/13/23 1831) Objective: Last Vitals: BP MAP 119/70 (02/14/23 06) 86 (02/14/23599) Arterial BP MAP Temp 36.6 C (97.9 F) (02/14/23 0400) Pulse 65 (02/14/23 06) Resp 11 (02/14/23599) SpO2 96 % (02/14/23599) Weight 69.3 kg (152 lb 12.5 oz) (04/08/23 0600) BMI Body mass index is 25.42 kg/m . I/O: 02/13 0700 - 02/14 0659 In: 1867 [P.O.:50; I.V.:1035] Out: 670 [Urine:670] Ventilator: NA Oxygen Delivery: O2 Flow Rate (L/min): 1 L/min Invasive Lines / Tubes / Drains: Peripheral IV 02/07/23 Anterior;Proximal;Right Forearm (Active) Number of days: 6 NG/OG Tube Nasogastric Right nostril (Active) Number of days: 7 Male External Urinary Catheter Medium (Active) Number of days: 8 Central Line Indication: NA - patient does not have a central line Morales Indications: Hourly I&Os (Critical Care ONLY) Restraints: Restraints Non-Violent Or Non-Self Destructive Feb 10, 2023 5:17 Am Edt Restraint order already placed. Order is valid for duration of episode. Wounds: Constitutional: General Appearance []WDWN []Obese []Cachectic []Thin [x]Ill Eyes: Inspection of Pupils/Irises Pupils round and react: [x]Yes []No Sclera: []Icteric [x]Non-Icteric Inspection of Conjunctiva/Lids Conjunctiva: []Injected [x]Non-Injected Lids: [x]Intact []Lesion Present ENT/Mouth: External Inspection of ears/nose [x] Normal [] Scar/Lesion/Mass Inspection of teeth/lips/gums Dentition: [x][place] Teeth []Dentures Lips/Gums: [x]Intact []Lesion Present Mucosa: [x][place] [x]Moist []Dry Neck: External Appearance Overall Appearance: [x]Normal []Lesion/Mass/Crepitus Present Trachea midline: [x]Yes []No Thyroid [x]Normal []Enlarged []Tender []Mass []Absent Respiratory: Respiratory effort []Labored [x]Non-Labored [] Mechanically-Ventilated Auscultation []Clear []Crackles []Wheezes [x][place] Cardiovascular: Auscultation Rate: [x]Regular []Irregular []Tachycardia []Bradycardia Rhythm: [x]Regular []Irregular Murmur: []Present [x]Absent Extremities Peripheral Edema: []Present [x]Absent Varicosities: []Present [x]Absent Gastrointestinal: Abdomen Palpation: [x]Soft []Firm []Tender []Non-Tender []Distended [x]Non-distended Mass: []Present [x]Absent Bowel Sounds: [x]Present []Absent Hernia: []Present [x]Absent Liver/Spleen: []Hepatosplenomegaly []Organomegaly Absent Musculoskeletal: Inspection of Digits and Nails Cyanosis: []Present [x]Absent Clubbing: []Present [x]Absent Ischemia: []Present [x]Absent Infection: []Present [x]Absent Extremities GARCIA Equally: Except ([x]RUE [x]RLE []LUE []LLE) Strength/Tone: Intact and Normal ([]RUE []RLE [x]LUE [x]LLE) Skin: Inspection [x]Normal []Rash []Lesion []Ulcer Palpation [x]Warm []Cool [x]Dry []Clammy []Nodules []Induration []Skin-tightening Cap-Refill: [x] <3 sec [] >3 seconds (delayed) Neurologic: GCS EYE: 4 - Opens spontaneously GCS MOTOR: 6 - Obeys commands for movement GCS VERBAL: 5 - Oriented to person, place, time Total GCS: 15 [x] Sensation grossly intact Psych: Mental Status Alert: [x]Yes [] No Oriented: []x0 []X1 []X2 [x]x3 Mood/Affect [x]Normal []Flat []Agitated []Depressed []Anxious []Calm []Sedated []NAD [facility] within last 24 hours- BMP: Recent Labs 02/12/23 0017 02/12/23 0911 02/13/23 0022 02/13/23 0903 02/13/23 1629 02/14/23 0001 NA 144 < > 150* 150* 151* 149* K 4.0 -- 3.8 -- -- 3.7 CL 113* -- 114* -- -- 114* CO2 28 -- 28 -- -- 30 BUN 25* -- 40* -- -- 40* CREATININE 0.84 -- 0.95 -- -- 0.90 CALCIUM 8.6 -- 9.3 -- -- 8.6 < > = values in this interval not displayed. LFTs: Recent Labs 02/13/23 0022 02/13/23 0903 02/14/23 0001 AST 72* 69* 64* ALT 96* 98* 93* PROT 6.1* 6.2* 5.7* ALBUMIN 3.5 3.6 3.1* BILITOT 1.0 0.9 0.8 ALKPHOS 84 94 79 Glucose: Recent Labs 02/12/23 0017 02/13/23 0022 02/14/23 0001 GLUCOSE 89 137* 110* Procal: No results for input(s): PROCAL in the last 72 hours. CBC: Recent Labs 02/12/23 0017 02/13/23 0022 02/14/23 0001 WBC 7.1 7.9 8.8 HGB 15.4 16.3 15.0 HCT 45.0 48.6 44.5 PLT 258 308 286 MCV 88.7 89.0 89.2 RDW 14.4 14.0 14.0 ABGs: No results for input(s): PHART, AZO9HQF, PO2ART, AJN0WXK, SO2ART, [id number] in the last 72 hours. Lactic Acid: No results for input(s): LACTATE in the last 72 hours. INR: No results for input(s): INR in the last 72 hours. Cardiac Injury Profile: No results for input(s): CKTOTAL, CKMB, TROPONINI in the last 72 hours. Labs in Last 3 months: Lab Results Component Value Date INR 1.1 02/05/2023 Microbiology- Urine Cx: No results found for: URINECX Blood Cx: No results found for: BLOODCX Sputum Cx: No results found for: RESPCULT Gram Stain: No results found for: LABGRAM PNA PCR: No results found for: HUMANMETAPNE COVID19: No results found for: COVID19 Legionella Ag: No results found for: LEGIONELLAPN Strep Ag: No results for input(s): STREPPNEUMO in the last 72 hours. Imaging- EKG 02/05/23:IMPRESSION: Sinus rhythm Borderline prolonged NH interval Nonspecific intraventricular conduction delay Probable inferior infarct, old Anterior ST depressions Nonspecific T abnormalities, lateral leads CTH 02/05/23:IMPRESSION: Large left MCA territory infarct with hyperdense left MCA. Sulcal effacement and mild mass effect on the left lateral ventricles. ASPECT SCORE= 0. 1 mm rightward midline shift measured at the subtle signal. No herniation. Subtle hyperdensity in the left parietal convexity could represent subtle subarachnoid hemorrhage, cortical petechial hemorrhage or apposition of luna matter. CTA head & neck 02/05/23: IMPRESSION: Perfusion CT demonstrates large perfusion abnormality consistent with large left MCA territory infarct. CTA with left M1 occlusion. Nonenhancement of the left intracranial and intracranial ICA is nonspecific and could be due to significant back pressure resulting in nonenhancement versus occlusion which could appear similar. The left TONI is patent. Moderate to severe focal stenosis of the right COMMERCIAL LOAN SPECIALIST and mild to moderate focal stenosis of the left [employer] LOAN SPECIALIST at the P1-P2 junctions as discussed. Cervical spondylosis. Approximately 10% stenosis of the right cervical ICA by NASCET criteria. NASCET criteria not applicable for the left ICA. Nonspecific frothy secretions in the right maxillary sinus which can be seen with acute sinusitis if in the appropriate clinical setting. CTH 02/06/23:IMPRESSION: Unchanged nonhemorrhagic left MCA territory infarct with stable mass effect. CTH 02/07/23: IMPRESSION: Redemonstrated subacute large left MCA territory infarct. No interval hemorrhagic conversion. Interval worsening of mass effect with increased effacement of the left lateral ventricle, 7 mm rightward midline shift measured at the septum pellucidum, mass effect on the left vertebral peduncle and partial effacement of the ambient cisterns ECHO 02/07/23:Left Ventricle: Left ventricle size is normal. Moderate basal septal thickening. Normal left ventricular systolic function. EF by 2D Simpsons Biplane is 58%. Normal wall motion. Diastolic dysfunction present with normal LVEF. Right Ventricle: Not well visualized. Right ventricle size is normal. Normal systolic function. Mitral Valve: Mild (1+) regurgitation. -mildly increased L atrium CESARIO 02/09/23: CESARIO with Large AA thrombus - filling the whole appendage and protruding into the the left atrium MRI 02/10 IMPRESSION: Worsening cerebral edema involving the distribution of the right MCA with significant compression of the left lateral ventricle and brain stem and xiomy as well as a left to right midline shift of approximately 15 mm. No evidence of hemorrhagic transformation. 02/11 CT head FINDINGS: Evolving left MCA territory infarct with confluent low attenuation. There is persistent shift of midline from the left to the right now measuring 12 mm with previous measurement of [address] head 02/07/2023 and 15 mm on MRI brain 02/10/2023. There is mass effect upon the left lateral ventricle as well as the xiomy and midbrain. The right lateral ventricle is distended and dilated representing a change compared to prior CT exam. Increase in left hemispheric edema as there is effacement of the sulci throughout the left hemisphere. No definite hemorrhagic transformation. Atherosclerotic calcifications are present. Port ventricle is patent. There appears be some mass effect upon the basal cistern. Empty sella. Mucosal wall thickening of the right maxillary sinus and a few ethmoid air cells. Globes are symmetric. IMPRESSION: Evolution of LEFT MCA territory infarcts. Shift of midline from the left to right of at least 12 mm (15 mm on MRI) with new enlargement/dilation of the right lateral ventricle. Increase in left hemispheric edema with effacement of sulci. Persistent mass effect upon the midbrain and xiomy. Assessment and Plan: Principal Problem: Acute ischemic stroke (HCC) Active Problems: Arterial ischemic stroke, MCA (middle cerebral artery), left, acute (HCC) Brain compression (CMS/HCC) (HCC) Cerebral edema (CMS/HCC) (HCC) Troponin level elevated Left MCA Ischemic Stroke Cytotoxic edema Brain Compression Etiology: Embolic--> large Left Atrial thrombus -TTE KATELYNN--> large thrombus filling the whole appendage and protruding into the left atrium--> -Out of window for TNK/ No thrombectomy 2/2 established infarct--> 3% NaCl stopped 02/08 -Mannitol completed 02/11 x 24 hours 2/2 increased brain compression and midline shift 02/10 MRI with worsening cerebral edema - decreased LOC - GCS 9 -CT Head Tomorrow AM -Serum osmolality Q8H --> goal Osmo 328/ Na levels Q12H -goal Na 138-150, while Osmolarity is high -LR @ 50ml/h--> Free water Flush 30ml Q4H -SBP <160 -Heparin for DVT Prophy -ASA 81mg hold per Neuro Critical care -Continue atorvastatin 40mg daily --> NG C/w PT/OT/Speech - placement vs rehab - appreciate recs -Neuro Checks Q1H -Fall precautions/ HOB >30 degrees HTN/HPL CAD NSTEMI on Admit Elevated troponin (7 on admission) HX WA s/p CABG Hx 3rd Degree Heart Block -SBP <160 -Continue carvedilol and Norvasc -->Continue PRN Labetalol and Hydralazine -troponin 7 on admission, EKG with T wave inversion -Heparin for DVT prophy -Continue beta courtney and statin -Cardiology consulted --> no interventions 2/2 size of MCA stroke, increased risk of bleeding and prognosis Elevated LFTs -SGOT 64, ALT 93, total bili 1.0--> stable -Trend labs -US abdomen is numbers do not improve Debility Right hemiparesis Right facial Droop Global aphasia Dysphagia -Q2H oral care with mouth moistener -High risk aspiration --> maintain aspiration precautions -PT/OT eval and treat -SUPERVISOR DEHYDROGENATION eval and TX for speech -bedside swallow eval vs MBSS -NG--> tube feed/ Medications -Aspiration high risk -High risk for intubation -Up to chair daily -Surgery consulted for PEG placement - family updated on this plan - holding till next week for stabilization of cerebral edema -Social work consult for rehab/SNF Malnutrition -Continue tube feed--> advance to goal -Concern for emesis -Multiple BMs overnight --> advance tube feed to goal -Gen surg consult for PEG placement this week Tobacco use -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 -Currently will be hospitalized without opportunity to smoke for extended period FEN -trend labs -replace lytes PRN -Continue tube feeds post TTE -Strict I/O -Continue bowel regimen --> miralax and senna Code Status Full code GI Prophylaxis: Pantoprazole IV DVT Prophylaxis: Heparin SQ Discussed with Dr Pagan Disposition: Remain in ICU Status Critical Care Time: >35 minutes Total critical care time caring for this patient with life threatening, unstable organ failure, including direct patient contact, management of life support systems, review of data including imaging and labs, discussions with other team members and physicians, excluding procedures.s. Associated attestation - Sonia Pagan MD - 02/14/2023 7:02 PM EDT I saw and evaluated the patient, participating in the driscoll portions of the service. I reviewed the resident s note. I agree with the resident s findings and plan. [facility] Respiratory Care Department Progress Note As part of the Respiratory Assessment Program (RAP), the following Respiratory Therapist evaluation has been completed, including a chart review and clinical/physical assessment. Respiratory Therapist RAP Evaluation Guideline Points 0 1 2 3 4 Points Strongly Consider History Factor No Pulmonary conditions Stable Pulmonary condition(s) Surgery or Intervention that may impact Pulmonary system (at risk) Surgery or Intervention that is impacting Pulmonary system Active Exacerbation of Pulmonary Condition 1 Respiratory Pattern Regular, RR= 12-18 SILVA or Increased RR= 19-24 Irregular, or RR= 25-30 SOB, talk in short sentences, or RR= 31-35 Severe SOB, accessory muscle use, one word answers, or RR>35 0 Aerosol Med(s), High Flow O2 Breath Sounds Clear Diminished in 1 lobe Diminished in ? 2 lobes Adventitious breath sounds Coarse crackles, Wheezes, or Diminished in >2 lobes 2 Aerosol Med(s), Bronchial Hygiene, Hyperinflation Cough & Sputum Strong cough, no secretion retention or production Weak cough, no secretion retention or production Weak cough, w/ production (less often than Q2hr), or secretion retention No cough, w/ secretion retention or production (less often than Q2hr) Significant secretion production (more often than Q2hr) or mucus plug 1 Aerosol Med(s), Bronchial Hygiene, Hyperinflation Level of Activity Ambulatory Ambulatory with Assist Up in chair or edge of bed (dangle) Non-ambulatory, bedridden with active ROM Completely paralyzed or without active ROM 1 Triage 5 0-2 Triage 4 3-5 Triage 3 6-10 Triage 2 11-14 Triage 1 ?15 Total 5 Triage Score = 4 TRIAGE SCORING - SUGGESTED FREQUENCIES Aerosol Therapy Bronchial Hygiene Hyperinflation Triage Score Q4h & PRN 1 Q4hWA (QID) & PRN 2 TID & PRN 3 BID & PRN 4 PRN 5 Therapy(s) Indicated Yes/No Aerosol Medication n Hyperinflation n Bronchial Hygiene n High Flow Oxygen n Flow Rates PEF (L/Sec) IVC FVC FEV1 FEV1/FVC Patient instructed and returned demonstration on use of MDI (with spacer, as appropriate) None RT to enter/modify frequency of treatment order in EMR/EHR to match this RAP evaluation. Based on this RAP evaluation the following therapy is being initiated: BidPrn At the following frequency: Duoneb Comments: Thank you for involving Respiratory in the care of this patient, PROGRESS NOTE. STROKE SERVICE Patient Name:Catina Land Patient : 1955 Acct: [id number] Date of Admission: 02/05/2023 Room/Bed: T2-212/T2212 A PCP: No primary care provider on file. Patient location ICU Remains in the hospital due to persistent unresolved acute issues, New Complain: Continues to demonstrate improvement, Widely awake, fixing following smiling and interactive, almost appeared to have 20 % receptibve understanding ,but not consistent Patient had a BM yesterday , slight concern for vomiting, current enteral feeding to minimal dosing Osmolarity had continued to increased as well as Na Case discussed with Critical care this morning Fluids changed to KVO , LR, to decrease chloride load Free HO2 increased to 40 q 4 hrs , small dose intended to decrease raise in Na nd Osmolarity Folloq up Na stable and Osmolarity increased buy 2 but was obtained at 9 prior to the implementation of change CT with no significant change AF Na 150 Osmolarity now 328 , Renal function actually improved however BUN increased Sedation:No Diet/TF:NPO , Free HO2 40 q 4 and small dose of feeding Morales: Yes UOP, 125 in 12 hrs VTE prophylaxis: YES SCDs & heparin 5000 TID Antithrombotic therapy in first 24 hrs: YES aspirin But on hold Statin therapy for stroke stroke patients: High intensity Anticoagulation on AF patients: N/A no history of AF Activity: PT/OT Disposition: IP rehab Current Hospital Medications: Current Facility-Administered Medications: acetaminophen (Tylenol) tablet 650 mg, 650 mg, Oral, q6h PRN, 650 mg at 02/13/23 0216 OR acetaminophen (Tylenol) suppository 650 mg, 650 mg, Rectal, q6h PRN, Cris Rojelio SOCCER REFEREE - ETHYLBENZENE CRACKING SUPERVISOR amLODIPine (Norvasc) tablet 10 mg, 10 mg, Oral, Daily, Cris PATRICK Harman - ETHYLBENZENE CRACKING SUPERVISOR, 10 mg at 02/13/23 0909 [Held by provider] aspirin chewable tablet 81 mg, 81 mg, Per G Tube, Daily, Cris Harman, SOCCER REFEREE - ETHYLBENZENE CRACKING SUPERVISOR, 81 mg at 02/12/23844 atorvastatin (Lipitor) tablet 40 mg, 40 mg, Per G Tube, Daily, Cris Harman, SOCCER REFEREE - ETHYLBENZENE CRACKING SUPERVISOR, 40 mg at 02/12/232032 bisacodyl (Dulcolax) suppository 10 mg, 10 mg, Rectal, Daily PRN, Cris Harman, SOCCER REFEREE - ETHYLBENZENE CRACKING SUPERVISOR bisacodyl (Dulcolax) suppository 10 mg, 10 mg, Rectal, Daily, Cris Harman, SOCCER REFEREE - ETHYLBENZENE CRACKING SUPERVISOR, 10 mg at 02/13/23908 carvedilol (Coreg) tablet 25 mg, 25 mg, Per G Tube, BID WC, Cris Harman, SOCCER REFEREE - ETHYLBENZENE CRACKING SUPERVISOR, 25 mg at 02/13/23908 heparin injection 5,000 Units, 5,000 Units, SubCUTAneous, 3 times per day, Cris Harman, SOCCER REFEREE - ETHYLBENZENE CRACKING SUPERVISOR, 5,000 Units at 02/13/23 0558 hydrALAZINE (Apresoline) injection 20 mg, 20 mg, IntraVENous, q4h PRN, Cris Harman, SOCCER REFEREE - ETHYLBENZENE CRACKING SUPERVISOR, 20 mg at 02/12/23 0840 ipratropium-albuterol (Duo-Neb) 0.5-2.5 mg/3 mL nebulizer solution 3 mL, 3 mL, Nebulization, TID PRN, Cris Harman, SOCCER REFEREE - ETHYLBENZENE CRACKING SUPERVISOR, 3 mL at 02/07/232112 ipratropium-albuterol (Duo-Neb) 0.5-2.5 mg/3 mL nebulizer solution 3 mL, 3 mL, Nebulization, BID, Cris Harman, SOCCER REFEREE - ETHYLBENZENE CRACKING SUPERVISOR, 3 mL at 02/13/23 0843 ketamine (Ketalar) injection, , , Code/trauma/sedation med, Neel Jacobson MD, 50 mg at 02/09/23 1118 labetalol (Normodyne,Trandate) injection 20 mg, 20 mg, IntraVENous, q4h PRN, Cris Harman, SOCCER REFEREE - ETHYLBENZENE CRACKING SUPERVISOR, 20 mg at 02/11/23 0511 lactated Ringer's infusion, 50 mL/hr, IntraVENous, Continuous, [facility], SOCCER REFEREE - ETHYLBENZENE CRACKING SUPERVISOR, Last Rate: 50 mL/hr at 02/13/23 09, 50 mL/hr at 02/13/23 09 lidocaine (Uro-Jet) 2 % gel, , Topical, Once, Crisjeremy Harman, SOCCER REFEREE - ETHYLBENZENE CRACKING SUPERVISOR melatonin tablet 5 mg, 5 mg, Oral, Nightly PRN, Cris Harman, SOCCER REFEREE - ETHYLBENZENE CRACKING SUPERVISOR metoclopramide (Reglan) injection 5 mg, 5 mg, IntraVENous, q6h, Sarah Lehman-Estephanie, SOCCER REFEREE - ETHYLBENZENE CRACKING SUPERVISOR, 5 mg at 02/13/23 0940 ondansetron ODT (Zofran-ODT) disintegrating tablet 4 mg, 4 mg, Oral, q8h PRN OR ondansetron (Zofran) injection 4 mg, 4 mg, IntraVENous, q6h PRN, Cris Harman, SOCCER REFEREE - ETHYLBENZENE CRACKING SUPERVISOR pantoprazole (ProtoNix) EC tablet 40 mg, 40 mg, Oral, Nightly, 40 mg at 02/11/232132 OR pantoprazole (ProtoNix) injection 40 mg, 40 mg, IntraVENous, Nightly, Cris Harman, SOCCER REFEREE - ETHYLBENZENE CRACKING SUPERVISOR, 40 mg at 02/12/232032 Phenylephrine HCl (Pressors) 1 MG/10ML injection 0.2 mg, 0.2 mg, IntraVENous, PRN, Cris Harman, SOCCER REFEREE - ETHYLBENZENE CRACKING SUPERVISOR polyethylene glycol (PEG) 3350 (Miralax) packet 17 g, 17 g, Oral, BID, Sarah Lehman-Estephanie, SOCCER REFEREE - ETHYLBENZENE CRACKING SUPERVISOR, 17 g at 02/13/23908 polyvinyl alcohol (Liquifilm Tears) 1.4 % ophthalmic solution, , Both Eyes, PRN, Horace Garcia MD, Given at 02/12/23 204 Propofol (Diprivan) injection, , IntraVENous, Code/trauma/sedation med, Neel Jacobson MD, 30 mg at 02/09/23 1126 senna-docusate sodium (Senokot-S) 8.6-50 MG tablet 2 tablet, 2 tablet, Oral, BID, Cris Harman, SOCCER REFEREE - ETHYLBENZENE CRACKING SUPERVISOR, 2 tablet at 02/13/23 0909 sodium chloride 0.9 % infusion, 5-250 mL/hr, IntraVENous, PRN, Cris Harman, SOCCER REFEREE - ETHYLBENZENE CRACKING SUPERVISOR sodium chloride 0.9% (NS) flush 5-40 mL, 5-40 mL, IntraVENous, q12h, Cris Harman, SOCCER REFEREE - ETHYLBENZENE CRACKING SUPERVISOR, 10 mL at 02/13/23 0022 sodium chloride 0.9% (NS) flush 5-40 mL, 5-40 mL, IntraVENous, PRN, Cris Harman, SOCCER REFEREE - ETHYLBENZENE CRACKING SUPERVISOR Continuous Infusions: lactated Ringer's, 50 mL/hr, Last Rate: 50 mL/hr (02/13/23 0908) Allergies: Patient has no allergy information on record. Review of Systems Unable to perform ROS: Acuity of condition Objective: Telemetry: Arrhythmia:N/A Physical Examination: Patient Vitals for the past 8 hrs: BP Temp Temp src Pulse Resp SpO2 02/13/23 1200 128/74 36.7 C (98 F) Temporal 71 12 94 % 02/13/23 1100 134/76 -- -- 73 13 94 % 02/13/23 1000 -- -- -- 69 13 97 % 02/13/23 0900 (!) 152/85 -- -- 75 13 96 % 02/13/23 0800 117/76 36.5 C (97.7 F) Temporal 70 12 95 % 02/13/23 0700 (!) 169/87 -- -- 75 12 96 % 02/13/23 0600 (!) 143/81 -- -- 71 13 96 % I/O last 3 completed shifts: In: 945 (13.6 mL/kg) [P.O.:50; I.V.:500 (7.2 mL/kg); NG/GT:395] Out: 2475 (35.7 mL/kg) [Urine:2475 (1 mL/kg/hr)] Weight: 69.3 kg General Physical Examination: General: more awake, alert interactive and engaged although still aphasic, looks comfortable HEENT:Normocephalic, atraumaticl CV: S1+S2, RRR, no MRG. Pulm:CTA b/l, unlabored Abdomen: Soft NT/ND. BS + Skin: Intact without ulcers, breakdowns or discoloration Extremities: third spacing Orthopedic limitation; N/A Pulses: Intact peripherally Carotid auscultation :No bruits Neurological Examination: Higher Functions: Mental Status Exam: Level of Alertnes; awake as above Orientation: Aphasic , not following commands but smiled today , Seems definitely more attentive and engaged Memory: Aphasic Fund of Knowledge: Aphasic, global Language: Globalaphasia Dysarthria Did not produced any sound Cranial Nerves: -II Visual acuity: abnormal, limited due to patient unable to perform exam -II Visualfields: no blink to threat on the right side -III Pupils (~ 3 mm OD, 3 mm OU) equal, round, reactive to light -III-IV- Extraocular Movements: intact, he does crossed midline -Nystagmus not present -Saccades and pursuits normal -V Facial sensation: appears normal Corneal's Intact bilateral -VII Facial strength:abnormal seems decreased on his right side -VIII Hearing: intact -IX-X - Gag reflex not assessed -X Palate: abnormal did not participated with mouth opening -XI Shoulder shrug: abnormal no movement of the right -XII Tongue movement: not participant MotorExamination: Tone after evaluation of 4 limbs, the following findings applied: Spastic R arm Increased/spastic R leg Normal L arm and leg -Bulk: normal -Muscle Stretch afterevaluation of all limbs, and axial musculature the following findings applied: Drift: Present R arm and leg ,no movement to gravity , some mild movement noted -Reflexes: after evaluation of 4 limbs, the following findings applied ; normal all limbs -Plantar responce: Equivocal Sensory appears normal butlimited reliability,, he seems to have decreased feeling on his right side Coordination: Arms limited reliability of exam/ poor participation Legs Limited reliability/poor participation Tremors not participant Gait abnormal, patient unable to walk due to acute circumstances / bed rest / safety concerns NIHSS 1a Level of consciousness: 0 1b. LOC questions: 2=Performs neither task correctly 1c. LOC commands: 2 2. Best Gaze: 1=partial gaze palsy 3. Visual: 2, I did not perceived reaction on the right 4. Facial Palsy: 2=Partial paralysis (total or near total paralysis of the lower face) 5a. Motor left arm: 0=No drift, limb holds 90 (or 45) degrees for full 10 seconds 5b. Motor right arm: 4=No movement 6a. motor left le=No drift, limb holds 90 (or 45) degrees for full 10 seconds 6b Motor right le=No effort against gravity, limb falls 7. Limb Ataxia: 0=Absent 8. Sensory: 1 9. Best Language: 3=Mute, global aphasia; no usable speech or auditory comprehension 10. Dysarthria: 2=Severe; patient speech is so slurred as to be unintelligible in the absence of or our of proportion to any dysphagia, or is mute/anarthric 11. Extinction and Inattention: 0=No abnormality 12. Distal motor function: 2=No voluntary extension after 5 seconds. Movement of the fingers at another time are not scored Total: 24 ANCILLARY Last 24hrs Recent Results (from the past 24 hour(s)) Osmolality Collection Time: 02/12/23 5:27 PM Result Value Ref Range OSMOLALITY, SERUM 318 (H) 280 - 300 mOsm/kg Sodium Collection Time: 02/12/23 5:27 PM Result Value Ref Range SODIUM 149 (H) 135 - 145 mmol/L CBC Collection Time: 02/13/23 12:22 AM Result Value Ref Range Auto WBC 7.9 3.6 - 10.7 10*3/uL RBC 5.46 4.40 - 5.90 10*6/uL Hemoglobin 16.3 13.0 - 18.0 g/dL Hematocrit 48.6 40.0 - 52.0 % MCV 89.0 80.0 - 98.0 fL MCH 29.9 26.0 - 34.0 pg MCHC 33.6 32.0 - 36.0 % RDW 14.0 11.5 - 14.5 % Platelets 308 140 - 440 10*3/uL MPV 9.1 7.4 - 12.4 fL Osmolality Collection Time: 02/13/23 12:22 AM Result Value Ref Range OSMOLALITY, SERUM 326 (H) 280 - 300 mOsm/kg Comprehensive metabolic panel Collection Time: 02/13/23 12:22 AM Result Value Ref Range SODIUM 150 (H) 135 - 145 mmol/L POTASSIUM 3.8 3.5 - 5.1 mmol/L CHLORIDE 114 (H) 98 - 107 mmol/L CARBON DIOXIDE 28 22 - 30 mmol/L ANION GAP 8 3 - 13 mmol/L UREA NITROGEN 40 (H) 9 - 20 mg/dL CREATININE 0.95 0.66 - 1.25 mg/dL GLUCOSE 137 (H) 70 - 100 mg/dL CALCIUM 9.3 8.4 - 10.4 mg/dL AST (SGOT) 72 (H) 15 - 46 U/L ALT 96 (H) 0 - 49 U/L ALKALINE PHOSPHATASE 84 38 - 126 U/L ALBUMIN 3.5 3.5 - 5.0 g/dL BILIRUBIN, TOTAL 1.0 0.2 - 1.3 mg/dL TOTAL PROTEIN 6.1 (L) 6.3 - 8.2 g/dL eGFR 87.7 >60.0 mL/min/1.73m*2 Osmolality Collection Time: 02/13/23 9:03 AM Result Value Ref Range OSMOLALITY, SERUM 328 (H) 280 - 300 mOsm/kg Sodium Collection Time: 02/13/23 9:03 AM Result Value Ref Range SODIUM 150 (H) 135 - 145 mmol/L Hepatic function panel Collection Time: 02/13/23 9:03 AM Result Value Ref Range BILIRUBIN, TOTAL 0.9 0.2 - 1.3 mg/dL BILIRUBIN, DIRECT 0.0 0.0 - 0.3 mg/dL ALKALINE PHOSPHATASE 94 38 - 126 U/L AST (SGOT) 69 (H) 15 - 46 U/L ALT 98 (H) 0 - 49 U/L ALBUMIN 3.6 3.5 - 5.0 g/dL TOTAL PROTEIN 6.2 (L) 6.3 - 8.2 g/dL Radiology: EKG 02/05/23:IMPRESSION: Sinus rhythm Borderline prolonged NH interval Nonspecific intraventricular conduction delay Probable inferior infarct, old Anterior ST depressions Nonspecific T abnormalities, lateral leads CTH 02/05/23:IMPRESSION: Large left MCA territory infarct with hyperdense left MCA. Sulcal effacement and mild mass effect on the left lateral ventricles. ASPECT SCORE= 0. 1 mm rightward midline shift measured at the subtle signal. No herniation. Subtle hyperdensity in the left parietal convexity could represent subtle subarachnoid hemorrhage, cortical petechial hemorrhage or apposition of luna matter. CTA head & neck 02/05/23: IMPRESSION: Perfusion CT demonstrates large perfusion abnormality consistent with large left MCA territory infarct. CTA with left M1 occlusion. Nonenhancement of the left intracranial and intracranial ICA is nonspecific and could be due to significant back pressure resulting in nonenhancement versus occlusion which could appear similar. The left TONI is patent. Moderate to severe focal stenosis of the right COMMERCIAL LOAN SPECIALIST and mild to moderate focal stenosis of the left COMMERCIAL LOAN SPECIALIST at the P1-P2 junctions as discussed. Cervical spondylosis. Approximately 10% stenosis of the right cervical ICA by NASCET criteria. NASCET criteria not applicable for the left ICA. Nonspecific frothy secretions in the right maxillary sinus which can be seen with acute sinusitis if in the appropriate clinical setting. CTH 02/06/23:IMPRESSION: Unchanged nonhemorrhagic left MCA territory infarct with stable mass effect. CTH 02/07/23: IMPRESSION: Redemonstrated subacute large left MCA territory infarct. No interval hemorrhagic conversion. Interval worsening of mass effect with increased effacement of the left lateral ventricle, 7 mm rightward midline shift measured at the septum pellucidum, mass effect on the left vertebral peduncle and partial effacement of the ambient cisterns ECHO 02/07/23:Left Ventricle: Left ventricle size is normal. Moderate basal septal thickening. Normal left ventricular systolic function. EF by 2D Simpsons Biplane is 58%. Normal wall motion. Diastolic dysfunction present with normal LVEF. Right Ventricle: Not well visualized. Right ventricle size is normal. Normal systolic function. Mitral Valve: Mild (1+) regurgitation. -mildly increased L atrium CESARIO 02/09/23: Left Atrium: Left atrium is moderately dilated. Left atrial appendage thrombus noted. It is large and fills most of the appendage. It is ~35x 15 mm in one plane. Can be seen throughout all imaging planes. There is protruding mobile portion of the thrombus into the left atrium which measures in length x width 10 mmx 4 mm. Left Ventricle: Left ventricle size is normal. Mildly increased wall thickness. Normal left ventricular systolic function. The EF by visual approximation is 60%. Normal wall motion. Interatrial Septum: No interatrial shunt visualized on color Doppler. Agitated saline study was negative. No PFO present. Aorta: Normal sized annulus and ascending aorta. There is mild atherosclerosis present in the aortic arch. There is mild atherosclerosis in the descending aorta. No significant valvular abnormalities. ' CT 02/13 , ( today ) No significant change ,shift remains 13 mm ASSESSMENT / PLAN/RECOMMENDATIONS: Left MCA occlusion with infarction / malignant MCA ischemic stroke - with cytotoxic cerebral edema, severe - brain compression with severe mass effect, midline shift of 11- 13 mm , ETIOLOGY:EMBOLIC from large left atrial thrombus - Evidence of hemorrhagic transformation of the IS, with blood in the subarachnoid space , asymptomatic, ( the increase in NIHSS documented in today's note comparing with prior is do to more accurate / complete measure ) -R hemiparesis -Global aphasia -Dysphagia, - Question if right stephanie- neglect or Hemianopia - Hypernatremia, high osmolarity , in the setting of cytotoxic edema treatment current close watch , stable - Left atrial thrombus CAD HPL/ on Statins Hx of [place] Hx of CABG Hx of 3rd degree AV block - DVT prophylaxis, on Lovenox 40 q d, ultrasound negative, CT today stable Continue the DVT prophylaxis for now PLAN Watch I/Os today continue osmolarity every 8 hrs, If any further increase, increase the enteral free water to 100 ml q 4 hrs NS changed for LR to KVO Watch urine output Continue with Lovenox Check hem occult Patient had BM, continue aggressive bowel regimen as you are doing Plan for out of bed Needs to remain in ICU for now NO repeated CT unless clinical change May repeat only in 2 days prior to re initiation of ASA -hypercoagulation panel pending to be followed OP -goal Na 138-150 - Goal Osm < 320 - -atorvastatin 40 - neuro checks every hour to be continue -consulted general surgery for PEG placement , to be completed next week possible Tuesday if patient CT and clinical exam remains stable - primary to manage SBP, goal <160 > 120 -rehab evaluation -OOB, PT/OT Neuro Critical Care / stroke Atending billing information I personally expend more than [x] 35, []75 , 95 [] min of : [x] critical care time / [] stroke team Total critical care time caring for this patient with life threatening, unstable organ failure (acute loss of neurological functions), including direct patient contact, management of life support systems, review of data including imaging and labs, discussions with other team members and physicians, excluding procedures. []not critical care performing a [x] face to face [] remote diagnostic evaluation of this patient: [x]by myself []in company of my: []NAVDEEP , [] resident / Medical Student [x] I personally reviewing stat labs, stat imaging studies and reviewed available medical record performed a history and physical examination of the patient and discussed the urgent management, diagnostic impressions and suggested plan of care documented in this note. [x] Personally completed note , after my NAVDEEP started basic information [] Attestation residents / NAVDEEP note [] Patient remains in critical condition and requires close neuro-critical care monitoring due to risk of further neurological deterioration Personal discussion of test results and plan of care with: Family, Critical Care Team, Patient treatments and testing options informed consent and plan of care, ., . Thank you No primary care provider on file. for the opportunity to be involved in this patient's care. ICU Progress Note Name: Catina Land : 1955(67 y.o.) Date: 02/13/23 Team: MICU Attending: Dr Whaley Subjective: Hospital Summary: 67 YO male W/PMH of CAD, [place], (s/p CABG & stenting), and HLD. Patient presented to [facility] ED on 02/05/23 after being found down on floor of bathroom covered in vomit by EMS. Family had called for a well check after being unable to contact the patient. Last known well time was sometime Tuesday02/03/23 in the AM. Patient was last seen by neighbors at that time. CT imaging showed L MCA infarct. Out of window for TNK, not amenable to thrombectomy d/t large established core infarct. He was admitted to T2 ICU. Cardiology following d/t NSTEMI med manage with beta courtney & statin. He was briefly on 3% NaCl for cerebral edema & mass effect. Dobhoff in place for nutrition d/t ongoing speech therapy for dysphagia. 02/06 CT head showed L MCA territory infarct w/ stable mass effect. BP overnight 150-170. Right side flaccid following commands L side. Code status changed to Full code d/t improvement. 3% NS @ 50ml/h 4/3 Increased SBP 160-190, requiring multiple PRN meds. 3% NaCl @ 50ml/h. Follows simple commands on left right flaccid 4/4 Ongoing hypertension overnight SBP 180-210, multiple PRN meds given. + right facial droop and R hemiparesis. Able to follow basic commands w/ left upper and lower extr. CTH with increased Cytotoxic edema and compression 02/09 - Increased LOC - increased agitation - starting PO antihypertensive meds - CESARIO completed - Large AA thrombus 4/6 - Pulled out Dobhoff overnight - Surgery consulted for PEG tube per Neuro - surgery will likely place next week if condition allows-- Awaiting MRI today 02/11 - MRI reviewed per neuro with increased swelling - this AM with decrease in LOC compared to exam 02/10 - will start Mannitol every 8 hours with serum Osmo prior to administration -Neuro Crit Care is holding on AC at this time d/t increased risk of bleeding. Family to discuss life support orders 02/12 Improved mentation. Mannitol held / Osmolality 320. Interval Events: Patient alert following commands. Interactive with family and staff. Improved mentation. CT scan of head unchanged. Continue tube feed at 20ml/h. Plans for patient to chair today Scheduled Meds: amLODIPine, 10 mg, Oral, Daily [Held by provider] aspirin, 81 mg, Per G Tube, Daily atorvastatin, 40 mg, Per G Tube, Daily bisacodyl, 10 mg, Rectal, Daily carvedilol, 25 mg, Per G Tube, BID WC heparin, 5,000 Units, SubCUTAneous, 3 times per day ipratropium-albuterol, 3 mL, Nebulization, BID lidocaine, , Topical, Once metoclopramide, 5 mg, IntraVENous, q6h pantoprazole, 40 mg, Oral, Nightly Or pantoprazole, 40 mg, IntraVENous, Nightly polyethylene glycol (PEG) 3350, 17 g, Oral, Daily senna-docusate sodium, 2 tablet, Oral, BID sodium chloride 0.9%, 5-40 mL, IntraVENous, q12h Continuous Infusions: Objective: Last Vitals: BP MAP (!) 143/81 (02/13/23599) 100 (02/13/23599) Arterial BP MAP Temp 36.4 C (97.6 F) (02/13/23 0400) Pulse 71 (02/13/23599) Resp 13 (02/13/23599) SpO2 96 % (02/13/23599) Weight 69.3 kg (152 lb 12.5 oz) (02/12/23599) BMI Body mass index is 25.42 kg/m . I/O: 02/12 700 - 02/13 659 In: 445 [P.O.:50] Out: 1025 [Urine:1025] Ventilator: NA Oxygen Delivery: O2 Flow Rate (L/min): 2 L/min Invasive Lines / Tubes / Drains: Peripheral IV 02/05/23 Anterior;Left;Proximal Forearm (Active) Number of days: 7 Peripheral IV 02/07/23 Anterior;Proximal;Right Forearm (Active) Number of days: 5 NG/OG Tube Nasogastric Right nostril (Active) Number of days: 6 Male External Urinary Catheter Medium (Active) Number of days: 7 Central Line Indication: NA - patient does not have a central line Morales Indications: NA - patient does not have a Morales catheter Restraints: Restraints Non-Violent Or Non-Self Destructive Feb 10, 2023 5:17 Am Edt NA - patient is not restrained. Wounds: Constitutional: General Appearance []WDWN []Obese []Cachectic []Thin [x]Ill Eyes: Inspection of Pupils/Irises Pupils round and react: [x]Yes []No Sclera: []Icteric [x]Non-Icteric Inspection of Conjunctiva/Lids Conjunctiva: []Injected [x]Non-Injected Lids: [x]Intact []Lesion Present ENT/Mouth: External Inspection of ears/nose [x] Normal [] Scar/Lesion/Mass Inspection of teeth/lips/gums Dentition: [x][place] Teeth []Dentures Lips/Gums: [x]Intact []Lesion Present Mucosa: [x][place] [x]Moist []Dry Neck: External Appearance Overall Appearance: [x]Normal []Lesion/Mass/Crepitus Present Trachea midline: [x]Yes []No Thyroid [x]Normal []Enlarged []Tender []Mass []Absent Respiratory: Respiratory effort []Labored [x]Non-Labored [] Mechanically-Ventilated Auscultation []Clear []Crackles []Wheezes [x][place] Cardiovascular: Auscultation Rate: [x]Regular []Irregular []Tachycardia []Bradycardia Rhythm: [x]Regular []Irregular Murmur: []Present [x]Absent Extremities Peripheral Edema: []Present [x]Absent Varicosities: []Present [x]Absent Gastrointestinal: Abdomen Palpation: [x]Soft []Firm []Tender []Non-Tender []Distended [x]Non-distended Mass: []Present [x]Absent Bowel Sounds: [x]Present []Absent Hernia: []Present [x]Absent Liver/Spleen: []Hepatosplenomegaly []Organomegaly Absent Musculoskeletal: Inspection of Digits and Nails Cyanosis: []Present [x]Absent Clubbing: []Present [x]Absent Ischemia: []Present [x]Absent Infection: []Present [x]Absent Extremities GARCIA Equally: Except ([x]RUE [x]RLE []LUE []LLE) Strength/Tone: Intact and Normal ([]RUE []RLE [x]LUE [x]LLE) Skin: Inspection [x]Normal []Rash []Lesion []Ulcer Palpation [x]Warm []Cool [x]Dry []Clammy []Nodules []Induration []Skin-tightening Cap-Refill: [x] <3 sec [] >3 seconds (delayed) Neurologic: GCS EYE: 4 - Opens spontaneously GCS MOTOR: 6 - Obeys commands for movement GCS VERBAL: 2 - Incomprehensible sounds Total GCS: 12 [x] Sensation grossly intact to left side Psych: Mental Status Alert: [x]Yes [] No Oriented: []x0 []X1 []X2 []X3 Global aphasia Mood/Affect [x]Normal []Flat []Agitated []Depressed []Anxious []Calm []Sedated []NAD [facility] within last 24 hours- BMP: Recent Labs 02/11/23 03002/11/23 0844 02/12/23 0017 02/12/23 0911 02/12/23 1727 02/13/23 0022 NA 145 < > 144 148* 149* 150* K 3.3* -- 4.0 -- -- 3.8 CL 111* -- 113* -- -- 114* CO2 29 -- 28 -- -- 28 BUN 31* -- 25* -- -- 40* CREATININE 0.94 -- 0.84 -- -- 0.95 CALCIUM 8.5 -- 8.6 -- -- 9.3 MG 2.3 -- -- -- -- -- < > = values in this interval not displayed. LFTs: Recent Labs 02/11/23 03002/12/23 0017 02/13/23 0022 AST 42 78* 72* ALT 28 62* 96* PROT 6.0* 5.9* 6.1* ALBUMIN 3.3* 3.2* 3.5 BILITOT 0.9 1.1 1.0 ALKPHOS 72 75 84 Glucose: Recent Labs 02/11/23 0301 02/12/23 0017 02/13/23 0022 GLUCOSE 141* 89 137* Procal: No results for input(s): PROCAL in the last 72 hours. CBC: Recent Labs 02/11/23 0301 02/12/23 0017 02/13/23 002 WBC 8.4 7.1 7.9 HGB 15.8 15.4 16.3 HCT 48.2 45.0 48.6 PLT 253 258 308 MCV 90.9 88.7 89.0 RDW 14.6* 14.4 14.0 ABGs: No results for input(s): PHART, EED4CAC, PO2ART, XXG1XRH, SO2ART, Y1PIEROF in the last 72 hours. Lactic Acid: No results for input(s): LACTATE in the last 72 hours. INR: No results for input(s): INR in the last 72 hours. Cardiac Injury Profile: No results for input(s): CKTOTAL, CKMB, TROPONINI in the last 72 hours. Labs in Last 3 months: Lab Results Component Value Date INR 1.1 02/05/2023 Microbiology- Urine Cx: No results found for: URINECX Blood Cx: No results found for: BLOODCX Sputum Cx: No results found for: RESPCULT Gram Stain: No results found for: LABGRAM PNA PCR: No results found for: HUMANMETAPNE COVID19: No results found for: COVID19 Legionella Ag: No results found for: LEGIONELLAPN Strep Ag: No results for input(s): STREPPNEUMO in the last 72 hours. Imaging- EKG 02/05/23:IMPRESSION: Sinus rhythm Borderline prolonged NH interval Nonspecific intraventricular conduction delay Probable inferior infarct, old Anterior ST depressions Nonspecific T abnormalities, lateral leads CTH 02/05/23:IMPRESSION: Large left MCA territory infarct with hyperdense left MCA. Sulcal effacement and mild mass effect on the left lateral ventricles. ASPECT SCORE= 0. 1 mm rightward midline shift measured at the subtle signal. No herniation. Subtle hyperdensity in the left parietal convexity could represent subtle subarachnoid hemorrhage, cortical petechial hemorrhage or apposition of luna matter. CTA head & neck 02/05/23: IMPRESSION: Perfusion CT demonstrates large perfusion abnormality consistent with large left MCA territory infarct. CTA with left M1 occlusion. Nonenhancement of the left intracranial and intracranial ICA is nonspecific and could be due to significant back pressure resulting in nonenhancement versus occlusion which could appear similar. The left TONI is patent. Moderate to severe focal stenosis of the right COMMERCIAL LOAN SPECIALIST and mild to moderate focal stenosis of the left COMMERCIAL LOAN SPECIALIST at the P1-P2 junctions as discussed. Cervical spondylosis. Approximately 10% stenosis of the right cervical ICA by NASCET criteria. NASCET criteria not applicable for the left ICA. Nonspecific frothy secretions in the right maxillary sinus which can be seen with acute sinusitis if in the appropriate clinical setting. CTH 02/06/23:IMPRESSION: Unchanged nonhemorrhagic left MCA territory infarct with stable mass effect. CTH 02/07/23: IMPRESSION: Redemonstrated subacute large left MCA territory infarct. No interval hemorrhagic conversion. Interval worsening of mass effect with increased effacement of the left lateral ventricle, 7 mm rightward midline shift measured at the septum pellucidum, mass effect on the left vertebral peduncle and partial effacement of the ambient cisterns ECHO 02/07/23:Left Ventricle: Left ventricle size is normal. Moderate basal septal thickening. Normal left ventricular systolic function. EF by 2D Simpsons Biplane is 58%. Normal wall motion. Diastolic dysfunction present with normal LVEF. Right Ventricle: Not well visualized. Right ventricle size is normal. Normal systolic function. Mitral Valve: Mild (1+) regurgitation. -mildly increased L atrium CESARIO 02/09/23: CESARIO with Large AA thrombus - filling the whole appendage and protruding into the the left atrium MRI 02/10 IMPRESSION: Worsening cerebral edema involving the distribution of the right MCA with significant compression of the left lateral ventricle and brain stem and xiomy as well as a left to right midline shift of approximately 15 mm. No evidence of hemorrhagic transformation. 02/11 CT head FINDINGS: Evolving left MCA territory infarct with confluent low attenuation. There is persistent shift of midline from the left to the right now measuring 12 mm with previous measurement of [address] head 02/07/2023 and 15 mm on MRI brain 02/10/2023. There is mass effect upon the left lateral ventricle as well as the xiomy and midbrain. The right lateral ventricle is distended and dilated representing a change compared to prior CT exam. Increase in left hemispheric edema as there is effacement of the sulci throughout the left hemisphere. No definite hemorrhagic transformation. Atherosclerotic calcifications are present. Port ventricle is patent. There appears be some mass effect upon the basal cistern. Empty sella. Mucosal wall thickening of the right maxillary sinus and a few ethmoid air cells. Globes are symmetric. IMPRESSION: Evolution of LEFT MCA territory infarcts. Shift of midline from the left to right of at least 12 mm (15 mm on MRI) with new enlargement/dilation of the right lateral ventricle. Increase in left hemispheric edema with effacement of sulci. Persistent mass effect upon the midbrain and xiomy. Assessment and Plan: Principal Problem: Acute ischemic stroke (HCC) Active Problems: Arterial ischemic stroke, MCA (middle cerebral artery), left, acute (HCC) Brain compression (CMS/HCC) (HCC) Cerebral edema (CMS/HCC) (HCC) Troponin level elevated Left MCA Ischemic Stroke Cytotoxic edema Brain Compression Etiology: Embolic--> large Left Atrial thrombus -TTE KATELYNN--> large thrombus filling the whole appendage and protruding into the left atrium--> -Out of window for TNK/ No thrombectomy 12/09 established infarct--> 3% NaCl stopped 02/08 02/10 MRI with worsening cerebral edema - decreased LOC - GCS 9 -CT Head pending -Mannitol started 02/11 x 24 hours 2/2 increased brain compression and midline shift -Serum osmolality Q8H --> goal Osmo 328/ Na levels Q12H -goal Na 140-155, while Osmolarity is high -LR @ 50ml/h--> Free water Flush 30ml Q4H -SBP <160 -Continue carvedilol and Norvasc via NG -Continue PRN Labetalol and Hydralazine -Heparin for DVT Prophy -ASA 81mg hold per Neuro Critical care -Continue atorvastatin 40mg daily --> NG C/w PT/OT/Speech - placement vs rehab - appreciate recs -Neuro Checks Q1H -Fall precautions/ HOB >30 degrees -Family updated by Neurology - LSO discussion to be followed up on - sister to determine DNRCCA +/- intubation HTN/HPL CAD NSTEMI on Admit Elevated troponin (7 on admission) HX [place] s/p CABG Hx 3rd Degree Heart Block -SBP <160 -Continue carvedilol and Norvasc -Continue PRN Labetalol and Hydralazine -troponin 7 on admission, EKG with T wave inversion -Heparin for DVT prophy -Continue beta courtney and statin -Cardiology consulted --> no interventions 2/2 size of MCA stroke, increased risk of bleeding and prognosis Elevated LFTs -SGOT 72, ALT 96, total bili 1.0 -Trend labs -US abdomen is numbers do not improve Debility Right hemiparesis Right facial Droop Global aphasia Dysphagia -Patient with copious oral debris in posterior mouth and roof of mouth requiring aggressive oral care. 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 -Currently will be hospitalized without opportunity to smoke for extended period FEN -trend labs -replace lytes PRN -Continue tube feeds post TTE -Strict I/O -Continue bowel regimen --> miralax and senna Code Status Full code GI Prophylaxis: Pantoprazole IV DVT Prophylaxis: Heparin SQ Discussed with Dr Whaley Disposition: Remain in ICU Status Critical Care Time: >35 minutes Total critical care time caring for this patient with life threatening, unstable organ failure, including direct patient contact, management of life support systems, review of data including imaging and labs, discussions with other team members and physicians, excluding procedures. PROGRESS NOTE. STROKE SERVICE Patient Name:Catina Land Patient : 1955 Acct: [id number] Date of Admission: 02/05/2023 Room/Bed: T2-212/T2-212 A PCP: No primary care provider on file. Patient location ICU Remains in the hospital due to persistent unresolved acute issues, New Complain: Marked improvement after mannitol yesterday Today's CT demonstrated persistent severe midline shift Vitals have been stable AF Na 144 Osmolarity now 320 , had received 3 doses of 1 gram / kg Mannitol last 24 hrs Renal function actually improved Sedation:No Diet/TF:NPO Morales: Yes VTE prophylaxis: YES SCDs & heparin 5000 TID Antithrombotic therapy in first 24 hrs: YES aspirin Statin therapy for stroke stroke patients: High intensity Anticoagulation on AF patients: N/A no history of AF Activity: PT/OT Disposition: IP rehab Current Hospital Medications: Current Facility-Administered Medications: acetaminophen (Tylenol) tablet 650 mg, 650 mg, Oral, q6h PRN, 650 mg at 02/08/23 0509 OR acetaminophen (Tylenol) suppository 650 mg, 650 mg, Rectal, q6h PRN, Cris Harman, SOCCER REFEREE - ETHYLBENZENE CRACKING SUPERVISOR amLODIPine (Norvasc) tablet 10 mg, 10 mg, Oral, Daily, Cris Harman, SOCCER REFEREE - ETHYLBENZENE CRACKING SUPERVISOR, 10 mg at 02/11/23 0833 aspirin chewable tablet 81 mg, 81 mg, Per G Tube, Daily, Cris Harman, SOCCER REFEREE - ETHYLBENZENE CRACKING SUPERVISOR, 81 mg at 02/11/23 08 atorvastatin (Lipitor) tablet 40 mg, 40 mg, Per G Tube, Daily, Cris Harman, SOCCER REFEREE - ETHYLBENZENE CRACKING SUPERVISOR, 40 mg at 02/10/23 2114 bisacodyl (Dulcolax) suppository 10 mg, 10 mg, Rectal, Daily PRN, Cris Harman, SOCCER REFEREE - ETHYLBENZENE CRACKING SUPERVISOR bisacodyl (Dulcolax) suppository 10 mg, 10 mg, Rectal, Daily, Cris Harman, SOCCER REFEREE - ETHYLBENZENE CRACKING SUPERVISOR, 10 mg at 02/11/23 0900 carvedilol (Coreg) tablet 25 mg, 25 mg, Per G Tube, BID WC, Cris Harman, SOCCER REFEREE - ETHYLBENZENE CRACKING SUPERVISOR, 25 mg at 02/11/23 0833 heparin injection 5,000 Units, 5,000 Units, SubCUTAneous, 3 times per day, Cris Harman, SOCCER REFEREE - ETHYLBENZENE CRACKING SUPERVISOR, 5,000 Units at 02/11/23 0511 hydrALAZINE (Apresoline) injection 20 mg, 20 mg, IntraVENous, q4h PRN, Cris Harman, SOCCER REFEREE - ETHYLBENZENE CRACKING SUPERVISOR, 20 mg at 02/11/23 0305 ipratropium-albuterol (Duo-Neb) 0.5-2.5 mg/3 mL nebulizer solution 3 mL, 3 mL, Nebulization, TID PRN, Cris Harman, SOCCER REFEREE - ETHYLBENZENE CRACKING SUPERVISOR, 3 mL at 02/07/232112 ipratropium-albuterol (Duo-Neb) 0.5-2.5 mg/3 mL nebulizer solution 3 mL, 3 mL, Nebulization, BID, Cris Harman, SOCCER REFEREE - ETHYLBENZENE CRACKING SUPERVISOR, 3 mL at 02/10/23 1503 ketamine (Ketalar) injection, , , Code/trauma/sedation med, Neel Jacobson MD, 50 mg at 02/09/23 1118 labetalol (Normodyne,Trandate) injection 20 mg, 20 mg, IntraVENous, q4h PRN, Cris Rojelio, SOCCER REFEREE - ETHYLBENZENE CRACKING SUPERVISOR, 20 mg at 02/11/23 0511 lidocaine (Uro-Jet) 2 % gel, , Topical, Once, Cris Harman SOCCER REFEREE - ETHYLBENZENE CRACKING SUPERVISOR mannitol 25 % injection 74 g, 1 g/kg, IntraVENous, q8h, Bibi Eddy, SOCCER REFEREE - ETHYLBENZENE CRACKING SUPERVISOR, 75 g at 02/11/23 0946 melatonin tablet 5 mg, 5 mg, Oral, Nightly PRN, Cris Rojelio, SOCCER REFEREE - ETHYLBENZENE CRACKING SUPERVISOR ondansetron ODT (Zofran-ODT) disintegrating tablet 4 mg, 4 mg, Oral, q8h PRN OR ondansetron (Zofran) injection 4 mg, 4 mg, IntraVENous, q6h PRN, Cris Rojelio, SOCCER REFEREE - ETHYLBENZENE CRACKING SUPERVISOR oxymetazoline (Afrin) 0.05 % nasal spray 2 spray, 2 spray, Each Nostril, Once, Cris Harman SOCCER REFEREE - ETHYLBENZENE CRACKING SUPERVISOR pantoprazole (ProtoNix) EC tablet 40 mg, 40 mg, Oral, Nightly, 40 mg at 02/10/232113 OR pantoprazole (ProtoNix) injection 40 mg, 40 mg, IntraVENous, Nightly, Cris Rojelio, SOCCER REFEREE - ETHYLBENZENE CRACKING SUPERVISOR, 40 mg at 02/09/232151 Phenylephrine HCl (Pressors) 1 MG/10ML injection 0.2 mg, 0.2 mg, IntraVENous, PRN, Cris Harman, SOCCER REFEREE - ETHYLBENZENE CRACKING SUPERVISOR polyethylene glycol (PEG) 3350 (Miralax) packet 17 g, 17 g, Oral, Daily, Cris Harman, SOCCER REFEREE - ETHYLBENZENE CRACKING SUPERVISOR, 17 g at 02/11/23 0833 Propofol (Diprivan) injection, , IntraVENous, Code/trauma/sedation med, Neel Jacobson MD, 30 mg at 02/09/23 1126 senna-docusate sodium (Senokot-S) 8.6-50 MG tablet 2 tablet, 2 tablet, Oral, BID, Cris Harman, SOCCER REFEREE - ETHYLBENZENE CRACKING SUPERVISOR, 2 tablet at 02/11/23 0833 sodium chloride 0.9 % bolus 500 mL, 500 mL, IntraVENous, PRN, Bibi Eddy, SOCCER REFEREE - ETHYLBENZENE CRACKING SUPERVISOR, Stopped at 02/11/23 1118 sodium chloride 0.9 % infusion, 5-250 mL/hr, IntraVENous, PRN, Cris Harman, SOCCER REFEREE - ETHYLBENZENE CRACKING SUPERVISOR sodium chloride 0.9% (NS) flush 5-40 mL, 5-40 mL, IntraVENous, q12h, Cris Harman, SOCCER REFEREE - ETHYLBENZENE CRACKING SUPERVISOR, 10 mL at 02/11/23 0012 sodium chloride 0.9% (NS) flush 5-40 mL, 5-40 mL, IntraVENous, PRN, Cris Harman, SOCCER REFEREE - ETHYLBENZENE CRACKING SUPERVISOR Continuous Infusions: Allergies: Patient has no allergy information on record. Review of Systems Unable to perform ROS: Acuity of condition Objective: Telemetry: Arrhythmia:N/A Physical Examination: Patient Vitals for the past 8 hrs: BP Temp Temp src Pulse Resp SpO2 02/11/23 1300 139/83 -- -- 78 15 97 % 02/11/23 1200 134/83 36.7 C (98.1 F) Temporal 76 11 98 % 02/11/23 1100 120/68 -- -- 73 15 96 % 02/11/23 1000 (!) 141/76 -- -- 82 15 97 % 02/11/23 0900 133/71 -- -- 80 16 97 % 02/11/23 0800 (!) 151/82 36.7 C (98 F) Temporal 89 19 97 % 02/11/23 0700 (!) 161/95 -- -- 88 -- 98 % 02/11/23 0600 134/68 -- -- 74 15 97 % I/O last 3 completed shifts: In: 2615 (35.4 mL/kg) [I.V.:1092 (14.8 mL/kg); NG/GT:1423; IV Piggyback:100] Out: 2710 (36.7 mL/kg) [Urine:2710 (1 mL/kg/hr)] Weight: 73.9 kg General Physical Examination: General: more awake, alert interactive and engaged although still aphasic, looks comfortable HEENT:Normocephalic, atraumaticl CV: S1+S2, RRR, no MRG. Pulm:CTA b/l, unlabored Abdomen: Soft NT/ND. BS + Skin: Intact without ulcers, breakdowns or discoloration Extremities: normal with no edema or cyanosis Orthopedic limitation; N/A Pulses: Intact peripherally Carotid auscultation :No bruits Neurological Examination: Higher Functions: Mental Status Exam: Level of Alertnes; awake as above Orientation: Aphasic , not following commands or mimicking today Memory: Aphasic Fund of Knowledge: Aphasic, global Language: Globalaphasia Dysarthria Did not produced any sound Cranial Nerves: -II Visual acuity: abnormal, limited due to patient unable to perform exam -II Visualfields: no blink to threat on the right side -III Pupils (~ 3 mm OD, 3 mm OU) equal, round, reactive to light -III-IV- Extraocular Movements: intact, he does crossed midline -Nystagmus not present -Saccades and pursuits normal -V Facial sensation: appears normal Corneal's Intact bilateral -VII Facial strength:abnormal seems decreased on his right side -VIII Hearing: intact -IX-X - Gag reflex not assessed -X Palate: abnormal -XI Shoulder shrug: abnormal -XII Tongue movement: not participant MotorExamination: Tone after evaluation of 4 limbs, the following findings applied: Spastic R arm Increased/spastic R leg Normal L arm and leg -Bulk: normal -Muscle Stretch afterevaluation of all limbs, and axial musculature the following findings applied: Drift: Present R arm and leg ,no movement to gravity , some mild movement noted -Reflexes: after evaluation of 4 limbs, the following findings applied ; normal all limbs -Plantar responce: Equivocal Sensory appears normal butlimited reliability,, he seems to have decreased feeling on his right side Coordination: Arms limited reliability of exam/ poor participation Legs Limited reliability/poor participation Tremors not participant Gait abnormal, patient unable to walk due to acute circumstances / bed rest / safety concerns NIHSS 1a Level of consciousness: 0 1b. LOC questions: 2=Performs neither task correctly 1c. LOC commands: 2 2. Best Gaze: 1=partial gaze palsy 3. Visual: 2, I did not perceived reaction on the right 4. Facial Palsy: 2=Partial paralysis (total or near total paralysis of the lower face) 5a. Motor left arm: 0=No drift, limb holds 90 (or 45) degrees for full 10 seconds 5b. Motor right arm: 4=No movement 6a. motor left le=No drift, limb holds 90 (or 45) degrees for full 10 seconds 6b Motor right le=No effort against gravity, limb falls 7. Limb Ataxia: 0=Absent 8. Sensory: 1 9. Best Language: 3=Mute, global aphasia; no usable speech or auditory comprehension 10. Dysarthria: 2=Severe; patient speech is so slurred as to be unintelligible in the absence of or our of proportion to any dysphagia, or is mute/anarthric 11. Extinction and Inattention: 0=No abnormality 12. Distal motor function: 2=No voluntary extension after 5 seconds. Movement of the fingers at another time are not scored Total: 24 ANCILLARY Last 24hrs Recent Results (from the past 24 hour(s)) Sodium Collection Time: 02/10/23 8:22 PM Result Value Ref Range SODIUM 145 135 - 145 mmol/L CBC Collection Time: 02/11/23 3:01 AM Result Value Ref Range Auto WBC 8.4 3.6 - 10.7 10*3/uL RBC 5.31 4.40 - 5.90 10*6/uL Hemoglobin 15.8 13.0 - 18.0 g/dL Hematocrit 48.2 40.0 - 52.0 % MCV 90.9 80.0 - 98.0 fL MCH 29.7 26.0 - 34.0 pg MCHC 32.7 32.0 - 36.0 % RDW 14.6 (H) 11.5 - 14.5 % Platelets 253 140 - 440 10*3/uL MPV 8.6 7.4 - 12.4 fL Comprehensive metabolic panel Collection Time: 02/11/23 3:01 AM Result Value Ref Range SODIUM 145 135 - 145 mmol/L POTASSIUM 3.3 (L) 3.5 - 5.1 mmol/L CHLORIDE 111 (H) 98 - 107 mmol/L CARBON DIOXIDE 29 22 - 30 mmol/L ANION GAP 4 3 - 13 mmol/L UREA NITROGEN 31 (H) 9 - 20 mg/dL CREATININE 0.94 0.66 - 1.25 mg/dL GLUCOSE 141 (H) 70 - 100 mg/dL CALCIUM 8.5 8.4 - 10.4 mg/dL AST (SGOT) 42 15 - 46 U/L ALT 28 0 - 49 U/L ALKALINE PHOSPHATASE 72 38 - 126 U/L ALBUMIN 3.3 (L) 3.5 - 5.0 g/dL BILIRUBIN, TOTAL 0.9 0.2 - 1.3 mg/dL TOTAL PROTEIN 6.0 (L) 6.3 - 8.2 g/dL eGFR 88.9 >60.0 mL/min/1.73m*2 Magnesium Collection Time: 02/11/23 3:01 AM Result Value Ref Range MAGNESIUM 2.3 1.6 - 2.3 mg/dL Sodium Collection Time: 02/11/23 8:44 AM Result Value Ref Range SODIUM 147 (H) 135 - 145 mmol/L Radiology: EKG 02/05/23:IMPRESSION: Sinus rhythm Borderline prolonged NH interval Nonspecific intraventricular conduction delay Probable inferior infarct, old Anterior ST depressions Nonspecific T abnormalities, lateral leads CTH 02/05/23:IMPRESSION: Large left MCA territory infarct with hyperdense left MCA. Sulcal effacement and mild mass effect on the left lateral ventricles. ASPECT SCORE= 0. 1 mm rightward midline shift measured at the subtle signal. No herniation. Subtle hyperdensity in the left parietal convexity could represent subtle subarachnoid hemorrhage, cortical petechial hemorrhage or apposition of luna matter. CTA head & neck 02/05/23: IMPRESSION: Perfusion CT demonstrates large perfusion abnormality consistent with large left MCA territory infarct. CTA with left M1 occlusion. Nonenhancement of the left intracranial and intracranial ICA is nonspecific and could be due to significant back pressure resulting in nonenhancement versus occlusion which could appear similar. The left TONI is patent. Moderate to severe focal stenosis of the right COMMERCIAL LOAN SPECIALIST and mild to moderate focal stenosis of the left COMMERCIAL LOAN SPECIALIST at the P1-P2 junctions as discussed. Cervical spondylosis. Approximately 10% stenosis of the right cervical ICA by NASCET criteria. NASCET criteria not applicable for the left ICA. Nonspecific frothy secretions in the right maxillary sinus which can be seen with acute sinusitis if in the appropriate clinical setting. CTH 02/06/23:IMPRESSION: Unchanged nonhemorrhagic left MCA territory infarct with stable mass effect. CTH 02/07/23: IMPRESSION: Redemonstrated subacute large left MCA territory infarct. No interval hemorrhagic conversion. Interval worsening of mass effect with increased effacement of the left lateral ventricle, 7 mm rightward midline shift measured at the septum pellucidum, mass effect on the left vertebral peduncle and partial effacement of the ambient cisterns ECHO 02/07/23:Left Ventricle: Left ventricle size is normal. Moderate basal septal thickening. Normal left ventricular systolic function. EF by 2D Simpsons Biplane is 58%. Normal wall motion. Diastolic dysfunction present with normal LVEF. Right Ventricle: Not well visualized. Right ventricle size is normal. Normal systolic function. Mitral Valve: Mild (1+) regurgitation. -mildly increased L atrium CESARIO 02/09/23: Left Atrium: Left atrium is moderately dilated. Left atrial appendage thrombus noted. It is large and fills most of the appendage. It is ~35x 15 mm in one plane. Can be seen throughout all imaging planes. There is protruding mobile portion of the thrombus into the left atrium which measures in length x width 10 mmx 4 mm. Left Ventricle: Left ventricle size is normal. Mildly increased wall thickness. Normal left ventricular systolic function. The EF by visual approximation is 60%. Normal wall motion. Interatrial Septum: No interatrial shunt visualized on color Doppler. Agitated saline study was negative. No PFO present. Aorta: Normal sized annulus and ascending aorta. There is mild atherosclerosis present in the aortic arch. There is mild atherosclerosis in the descending aorta. No significant valvular abnormalities. ASSESSMENT / PLAN/RECOMMENDATIONS: Left MCA occlusion with infarction / malignant MCA ischemic stroke - with cytotoxic cerebral edema - brain compression with severe mass effect, midline shift of 11 mm , ETIOLOGY:EMBOLIC from large left atrial thrombus - Evidence of hemorrhagic transformation of the IS, with blood in the subarachnoid space , asymptomatic, ( the increase in NIHSS documented in today's note comparing with prior is do to more accurate / complete measure ) -R hemiparesis -Global aphasia -Dysphagia, - Left atrial thrombus CAD HPL/ on Statins Hx of [place] Hx of CABG Hx of 3rd degree AV block - DVT prophylaxis, on Lovenox 40 q d, ( this was discussed with ICU team, would continue despite mild HT, however will put on hold after today until repeated CT tomorrow am and until completion of LE DVT PLAN - Based on current Osmolarity, no further Mannitol for now Repeat CT head in AM tomorrow Watch I/Os today continue osmolarity every 8 hrs, -hypercoagulation panel pending to be followed OP -goal Na 140-155, while Osmolarity is high -aspirin 81 on hold after today as well until repeated CT tomorrow -atorvastatin 40 -okay for DVT ppx however , on hold after am dose until CT repeated tomorrow - neuro checks every hour -consulted general surgery for PEG placement , to be completed next week, would like to wait for the edema to show stability as well as his exam , with better normalized osmolarities - primary to manage SBP, goal <160 -rehab evaluation -OOB, PT/OT Neuro Critical Care / stroke Atending billing information I personally expend more than [x] 35, []75 , 95 [] min of : [x] critical care time / [] stroke team Total critical care time caring for this patient with life threatening, unstable organ failure (acute loss of neurological functions), including direct patient contact, management of life support systems, review of data including imaging and labs, discussions with other team members and physicians, excluding procedures. []not critical care performing a [x] face to face [] remote diagnostic evaluation of this patient: [x]by myself []in company of my: []NAVDEEP , [] resident / Medical Student [x] I personally reviewing stat labs, stat imaging studies and reviewed available medical record performed a history and physical examination of the patient and discussed the urgent management, diagnostic impressions and suggested plan of care documented in this note. [x] Personally completed note , after my NAVDEEP started basic information [] Attestation residents / NAVDEEP note [] Patient remains in critical condition and requires close neuro-critical care monitoring due to risk of further neurological deterioration Personal discussion of test results and plan of care with: Family, Critical Care Team, Patient treatments and testing options informed consent and plan of care, ., . Thank you No primary care provider on file. for the opportunity to be involved in this patient's care. ICU Progress Note Name: Catina Land : 1955(67 y.o.) Date: 02/12/23 Team: MICU Attending: Dr Whaley Subjective: Hospital Summary: 67 YO male W/PMH of CAD, [place], (s/p CABG & stenting), and HLD. Patient presented to [facility] ED on 02/05/23 after being found down on floor of bathroom covered in vomit by EMS. Family had called for a well check after being unable to contact the patient. Last known well time was sometime Tuesday02/03/23 in the AM. Patient was last seen by neighbors at that time. CT imaging showed L MCA infarct. Out of window for TNK, not amenable to thrombectomy d/t large established core infarct. He was admitted to T2 ICU. Cardiology following d/t NSTEMI med manage with beta courtney & statin. He was briefly on 3% NaCl for cerebral edema & mass effect. Dobhoff in place for nutrition d/t ongoing speech therapy for dysphagia. 02/06 CT head showed L MCA territory infarct w/ stable mass effect. BP overnight 150-170. Right side flaccid following commands L side. Code status changed to Full code d/t improvement. 3% NS @ 50ml/h 4/3 Increased SBP 160-190, requiring multiple PRN meds. 3% NaCl @ 50ml/h. Follows simple commands on left right flaccid / Ongoing hypertension overnight SBP 180-210, multiple PRN meds given. + right facial droop and R hemiparesis. Able to follow basic commands w/ left upper and lower extr. CTH with increased Cytotoxic edema and compression 02/09 - Increased LOC - increased agitation - starting PO antihypertensive meds - CESARIO completed - Large AA thrombus 02/10 - Pulled out Dobhoff overnight - Surgery consulted for PEG tube per Neuro - surgery will likely place next week if condition allows-- Awaiting MRI today 4/7 - MRI reviewed per neuro with increased swelling - this AM with decrease in LOC compared to exam 02/10 - will start Mannitol every 8 hours with serum Osmo prior to administration -Neuro Crit Care is holding on AC at this time d/t increased risk of bleeding. Family to discuss life support orders Interval Events: Patient with improved mentation post mannitol. Hold mannitol, osmolality 320 will continue to trend Q8H. . Alert and able to follow commands on the left side. Right side with ongoing hemiparesis and neglect and ongoing global aphasia. Patients sister at the bedside updated on current status and plan of care. Scheduled Meds: amLODIPine, 10 mg, Oral, Daily aspirin, 81 mg, Per G Tube, Daily atorvastatin, 40 mg, Per G Tube, Daily bisacodyl, 10 mg, Rectal, Daily carvedilol, 25 mg, Per G Tube, BID WC heparin, 5,000 Units, SubCUTAneous, 3 times per day ipratropium-albuterol, 3 mL, Nebulization, BID lidocaine, , Topical, Once oxymetazoline, 2 spray, Each Nostril, Once pantoprazole, 40 mg, Oral, Nightly Or pantoprazole, 40 mg, IntraVENous, Nightly polyethylene glycol (PEG) 3350, 17 g, Oral, Daily senna-docusate sodium, 2 tablet, Oral, BID sodium chloride 0.9%, 5-40 mL, IntraVENous, q12h Continuous Infusions: Objective: Last Vitals: BP MAP 137/84 (02/12/23 06) 98 (02/12/23599) Arterial BP MAP Temp 36.3 C (97.4 F) (02/12/23 0000) Pulse 71 (02/12/23599) Resp 12 (02/12/23599) SpO2 96 % (02/12/23599) Weight 69.3 kg (152 lb 12.5 oz) (02/12/23599) BMI Body mass index is 25.42 kg/m . I/O: 02/11 0700 - 02/12 659 In: 1159 [I.V.:1013] Out: 2420 [Urine:2420] Ventilator: NA Oxygen Delivery: O2 Flow Rate (L/min): 2 L/min Invasive Lines / Tubes / Drains: Peripheral IV 02/05/23 Anterior;Left;Proximal Forearm (Active) Number of days: 6 Peripheral IV 02/07/23 Anterior;Proximal;Right Forearm (Active) Number of days: 4 NG/OG Tube Nasogastric Right nostril (Active) Number of days: 5 Male External Urinary Catheter Medium (Active) Number of days: 6 Central Line Indication: NA - patient does not have a central line Morales Indications: NA - patient does not have a Morales catheter Restraints: Restraints Non-Violent Or Non-Self Destructive Feb 10, 2023 5:17 Am Edt Restraint order already placed. Order is valid for duration of episode. Wounds: Constitutional: General Appearance []WDWN []Obese []Cachectic []Thin [x]Ill Eyes: Inspection of Pupils/Irises Pupils round and react: [x]Yes []No Sclera: []Icteric [x]Non-Icteric Inspection of Conjunctiva/Lids Conjunctiva: []Injected [x]Non-Injected Lids: [x]Intact []Lesion Present ENT/Mouth: External Inspection of ears/nose [x] Normal [] Scar/Lesion/Mass Inspection of teeth/lips/gums Dentition: [x][place] Teeth []Dentures Lips/Gums: [x]Intact []Lesion Present Mucosa: [x][place] [x]Moist []Dry Neck: External Appearance Overall Appearance: [x]Normal []Lesion/Mass/Crepitus Present Trachea midline: [x]Yes []No Thyroid [x]Normal []Enlarged []Tender []Mass []Absent Respiratory: Respiratory effort []Labored [x]Non-Labored [] Mechanically-Ventilated Auscultation []Clear []Crackles []Wheezes [x]Rhonchi Cardiovascular: Auscultation Rate: [x]Regular []Irregular []Tachycardia []Bradycardia Rhythm: [x]Regular []Irregular Murmur: []Present [x]Absent Extremities Peripheral Edema: []Present [x]Absent Varicosities: []Present [x]Absent Gastrointestinal: Abdomen Palpation: [x]Soft []Firm []Tender []Non-Tender []Distended [x]Non-distended Mass: []Present [x]Absent Bowel Sounds: [x]Present []Absent Hernia: []Present [x]Absent Liver/Spleen: []Hepatosplenomegaly []Organomegaly Absent Musculoskeletal: Inspection of Digits and Nails Cyanosis: []Present [x]Absent Clubbing: []Present [x]Absent Ischemia: []Present [x]Absent Infection: []Present [x]Absent Extremities GARCIA Equally: Except ([x]RUE [x]RLE []LUE []LLE) Strength/Tone: Intact and Normal ([]RUE []RLE [x]LUE [x]LLE) Skin: Inspection [x]Normal []Rash []Lesion []Ulcer Palpation [x]Warm []Cool [x]Dry []Clammy []Nodules []Induration []Skin-tightening Cap-Refill: [x] <3 sec [] >3 seconds (delayed) Neurologic: GCS EYE: 4 - Opens spontaneously GCS MOTOR: 6 - Obeys commands for movement GCS VERBAL: 2 - Incomprehensible sounds Total GCS: 12 [x] Sensation grossly intact to left side Psych: Mental Status Alert: [x]Yes [] No Oriented: []x0 []X1 []X2 []X3 Global aphasia Mood/Affect []Normal [x]Flat []Agitated []Depressed []Anxious []Calm []Sedated []NAD [facility] Labs within last 24 hours- BMP: Recent Labs 02/09/23 0938 02/09/238 02/10/23 0036 02/10/23 0829 02/11/23 0301 02/11/23 0844 02/11/23 1713 02/12/23 0017 NA 148* 149* < > 151* < > 145 147* 147* 144 K 3.6 -- 3.3* -- 3.3* -- -- 4.0 CL 116* -- 116* -- 111* -- -- 113* CO2 26 -- 28 -- 29 -- -- 28 BUN 22* -- 31* -- 31* -- -- 25* CREATININE 0.93 -- 1.00 -- 0.94 -- -- 0.84 CALCIUM 8.3* -- 8.5 -- 8.5 -- -- 8.6 MG -- -- 2.4* -- 2.3 -- -- -- PHOS 3.5 -- -- -- -- -- -- -- < > = values in this interval not displayed. LFTs: Recent Labs 02/10/23 0036 02/11/2330002/12/2316 AST 33 42 78* ALT 19 28 62* PROT 6.1* 6.0* 5.9* ALBUMIN 3.4* 3.3* 3.2* BILITOT 1.1 0.9 1.1 ALKPHOS 69 72 75 Glucose: Recent Labs 02/09/23 0938 02/10/23 0036 02/11/2330002/12/2316 GLUCOSE 109* 110* 141* 89 Procal: No results for input(s): PROCAL in the last 72 hours. CBC: Recent Labs 02/10/233502/11/2330002/12/2316 WBC 8.3 8.4 7.1 HGB 15.2 15.8 15.4 HCT 45.2 48.2 45.0 PLT 249 253 258 MCV 89.3 90.9 88.7 RDW 14.6* 14.6* 14.4 ABGs: No results for input(s): PHART, KOC4WIG, PO2ART, GBQ9LUV, SO2ART, H8HWPDTC in the last 72 hours. Lactic Acid: No results for input(s): LACTATE in the last 72 hours. INR: No results for input(s): INR in the last 72 hours. Cardiac Injury Profile: No results for input(s): CKTOTAL, CKMB, TROPONINI in the last 72 hours. Labs in Last 3 months: Lab Results Component Value Date INR 1.1 02/05/2023 Microbiology- Urine Cx: No results found for: URINECX Blood Cx: No results found for: BLOODCX Sputum Cx: No results found for: RESPCULT Gram Stain: No results found for: LABGRAM PNA PCR: No results found for: HUMANMETAPNE COVID19: No results found for: COVID19 Legionella Ag: No results found for: LEGIONELLAPN Strep Ag: No results for input(s): STREPPNEUMO in the last 72 hours. Imaging- EKG 02/05/23:IMPRESSION: Sinus rhythm Borderline prolonged NH interval Nonspecific intraventricular conduction delay Probable inferior infarct, old Anterior ST depressions Nonspecific T abnormalities, lateral leads CTH 02/05/23:IMPRESSION: Large left MCA territory infarct with hyperdense left MCA. Sulcal effacement and mild mass effect on the left lateral ventricles. ASPECT SCORE= 0. 1 mm rightward midline shift measured at the subtle signal. No herniation. Subtle hyperdensity in the left parietal convexity could represent subtle subarachnoid hemorrhage, cortical petechial hemorrhage or apposition of luna matter. CTA head & neck 02/05/23: IMPRESSION: Perfusion CT demonstrates large perfusion abnormality consistent with large left MCA territory infarct. CTA with left M1 occlusion. Nonenhancement of the left intracranial and intracranial ICA is nonspecific and could be due to significant back pressure resulting in nonenhancement versus occlusion which could appear similar. The left TONI is patent. Moderate to severe focal stenosis of the right [employer] LOAN [employer]IST and mild to moderate focal stenosis of the left [employer] LO[employer]IST at the P1-P2 junctions as discussed. Cervical spondylosis. Approximately 10% stenosis of the right cervical ICA by NASCET criteria. NASCET criteria not applicable for the left ICA. Nonspecific frothy secretions in the right maxillary sinus which can be seen with acute sinusitis if in the appropriate clinical setting. CTH 02/06/23:IMPRESSION: Unchanged nonhemorrhagic left MCA territory infarct with stable mass effect. CTH 02/07/23: IMPRESSION: Redemonstrated subacute large left MCA territory infarct. No interval hemorrhagic conversion. Interval worsening of mass effect with increased effacement of the left lateral ventricle, 7 mm rightward midline shift measured at the septum pellucidum, mass effect on the left vertebral peduncle and partial effacement of the ambient cisterns ECHO 02/07/23:Left Ventricle: Left ventricle size is normal. Moderate basal septal thickening. Normal left ventricular systolic function. EF by 2D Simpsons Biplane is 58%. Normal wall motion. Diastolic dysfunction present with normal LVEF. Right Ventricle: Not well visualized. Right ventricle size is normal. Normal systolic function. Mitral Valve: Mild (1+) regurgitation. -mildly increased L atrium CESARIO 02/09/23: CESARIO with Large AA thrombus - filling the whole appendage and protruding into the the left atrium MRI 02/10 IMPRESSION: Worsening cerebral edema involving the distribution of the right MCA with significant compression of the left lateral ventricle and brain stem and xiomy as well as a left to right midline shift of approximately 15 mm. No evidence of hemorrhagic transformation. 02/11 CT head FINDINGS: Evolving left MCA territory infarct with confluent low attenuation. There is persistent shift of midline from the left to the right now measuring 12 mm with previous measurement of [address] head 02/07/2023 and 15 mm on MRI brain 02/10/2023. There is mass effect upon the left lateral ventricle as well as the xiomy and midbrain. The right lateral ventricle is distended and dilated representing a change compared to prior CT exam. Increase in left hemispheric edema as there is effacement of the sulci throughout the left hemisphere. No definite hemorrhagic transformation. Atherosclerotic calcifications are present. Port ventricle is patent. There appears be some mass effect upon the basal cistern. Empty sella. Mucosal wall thickening of the right maxillary sinus and a few ethmoid air cells. Globes are symmetric. IMPRESSION: Evolution of LEFT MCA territory infarcts. Shift of midline from the left to right of at least 12 mm (15 mm on MRI) with new enlargement/dilation of the right lateral ventricle. Increase in left hemispheric edema with effacement of sulci. Persistent mass effect upon the midbrain and xiomy. Assessment and Plan: Principal Problem: Acute ischemic stroke (HCC) Active Problems: Arterial ischemic stroke, MCA (middle cerebral artery), left, acute (HCC) Brain compression (CMS/HCC) (HCC) Cerebral edema (CMS/HCC) (HCC) Troponin level elevated Assessment: Left MCA Ischemic Stroke Cytotoxic edema Brain Compression Etiology: Embolic--> large Left Atrial thrombus -TTE KATELYNN--> large thrombus filling the whole appendage and protruding into the left atrium--> -Out of window for TNK/ No thrombectomy 2/2 established infarct--> 3% NaCl stopped 02/08 02/10 MRI with worsening cerebral edema - decreased LOC - GCS 9 -Repeat CT head today noted above repeat CT head tomorrow -Mannitol started 02/11 x 24 hours 2/2 increased brain compression and midline shift -Serum osmolality Q8H --> goal Osmo 320/ Na levels Q12H -goal Na 140-155, while Osmolarity is high -SBP <160 -Continue carvedilol and Norvasc via NG -Continue PRN Labetalol and Hydralazine -ASA 81mg hold per Neuro Critical care -Continue atorvastatin 40mg daily --> NG C/w PT/OT/Speech - placement vs rehab - appreciate recs -Neuro Checks Q1H -Fall precautions/ HOB >30 degrees -Family updated by Neurology - LSO discussion to be followed up on - sister to determine DNRCCA +/- intubation HTN/HPL CAD NSTEMI on Admit Elevated troponin (7 on admission) HX [place] s/p CABG Hx 3rd Degree Heart Block -SBP <160 -Continue carvedilol and Norvasc -Continue PRN Labetalol and Hydralazine -troponin 7 on admission, EKG with T wave inversion -No heparin d/t HT on CT. -Continue beta courtney and statin -Cardiology consulted --> no interventions 2/2 size of MCA stroke, increased risk of bleeding and prognosis Debility Right hemiparesis Right facial Droop Global aphasia Dysphagia -Patient with copious oral debris in posterior mouth and roof of mouth requiring aggressive oral care. -Q2H oral care with mouth moistener -High risk aspiration --> maintain aspiration precautions -PT/OT eval and treat -SUPERVISOR DEHYDROGENATION eval and TX for speech -bedside swallow eval vs MBSS -NG--> tube feed held 2/2 concern for N/V and aspiration -Cleared for Pureed and thins initially --> concerns for mental status -Aspiration high risk -High risk for intubation -Surgery consulted for PEG placement - family updated on this plan - holding till next week for stabilization of cerebral edema Malnutrition -Restart tube feed -Increase to goal rate -Possible gen surg consult for PEG placement Tobacco use -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 -Currently will be hospitalized without opportunity to smoke for extended period FEN -trend labs -replace lytes PRN -Continue tube feeds post TTE -Strict I/O -Continue bowel regimen --> miralax and senna Code Status Full code GI Prophylaxis: Pantoprazole IV DVT Prophylaxis: Hold per Neuro Critical Care Discussed with Dr Whaley Disposition: Remain in ICU Status Critical Care Time: >35 minutes Total critical care time caring for this patient with life threatening, unstable organ failure, including direct patient contact, management of life support systems, review of data including imaging and labs, discussions with other team members and physicians, excluding procedures. ICU Progress Note Name: Catina Land : 1955(67 y.o.) Date: 02/11/23 Team: MICU Attending: Subjective: Hospital Summary: 67 year old male with a past medical history of CAD, [place] is s/p CABG and stenting. 02/05 to [facility] ED post being found down on the bathroom floor covered in vomit. EMS called to house by family 02/05 as they could not reach him for a wellness check, last well was on Tuesday per neighbors. Stroke call initiated, CTH with left MCA infarct, not candidate for TNK, not amendable to thrombectomy d/t large established core infarct. Also noted to have Trop elevation concerning for NSTEMI. Admitted to T2 for ongoing assessment, Neuro CritCare and Cardiology following. Briefly required 3% saline for cerebral edema / mass effect. Course of ICU as follows - 02/06 - CT head showed L MCA territory infarct w/ stable mass effect. BP overnight 150-170. Right side flaccid following commands L side. Code status changed to Full code d/t improvement. 3% NS @ 50ml/h 02/07 - Increased SBP 160-190, requiring multiple PRN meds. 3% NaCl @ 50ml/h. Follows simple commands on left right flaccid 02/08 - Ongoing hypertension overnight SBP 180-210, multiple PRN meds given. + right facial droop and R hemiparesis. Able to follow basic commands w/ left upper and lower extr. CTH with increased Cytotoxic edema and compression 02/09 - Increased LOC - increased agitation - starting PO antihypertensive meds - CESARIO completed - Large AA thrombus 02/10 - Pulled out Dobhoff overnight - Surgery consulted for PEG tube per Neuro - surgery will likely place next week if condition allows-- Awaiting MRI today 02/11 - MRI reviewed per neuro with increased swelling - this AM with decrease in LOC compared to exam 02/10 - will start Mannitol every 8 hours with serum Osmo prior to administration -Neuro Crit Care is holding on AC at this time d/t increased risk of bleeding. Family to discuss life support orders Scheduled Meds:amLODIPine, 10 mg, Oral, Daily aspirin, 81 mg, Per G Tube, Daily atorvastatin, 40 mg, Per G Tube, Daily bisacodyl, 10 mg, Rectal, Daily carvedilol, 25 mg, Per G Tube, BID WC heparin, 5,000 Units, SubCUTAneous, 3 times per day ipratropium-albuterol, 3 mL, Nebulization, BID lidocaine, , Topical, Once mannitol, 1 g/kg, IntraVENous, q8h oxymetazoline, 2 spray, Each Nostril, Once pantoprazole, 40 mg, Oral, Nightly Or pantoprazole, 40 mg, IntraVENous, Nightly polyethylene glycol (PEG) 3350, 17 g, Oral, Daily senna-docusate sodium, 2 tablet, Oral, BID sodium chloride 0.9%, 5-40 mL, IntraVENous, q12h Continuous Infusions: Objective: Last Vitals: BP MAP 139/83 (02/11/23 1300) 101 (02/11/23 1300) Arterial BP MAP Temp 36.7 C (98.1 F) (02/11/23 1200) Pulse 78 (02/11/23 1300) Resp 15 (02/11/23 1300) SpO2 97 % (02/11/23 1300) Weight 73.9 kg (163 lb) (02/09/23 1202) BMI Body mass index is 27.12 kg/m . I/O: 02/10 0700 - 02/11 0659 In: 901 Out: 1510 [Urine:1510] Ventilator: Oxygen Delivery: O2 Flow Rate (L/min): 2 L/min Invasive Lines / Tubes / Drains: Peripheral IV 02/05/23 Anterior;Left;Proximal Forearm (Active) Number of days: 4 Peripheral IV 02/07/23 Anterior;Proximal;Right Forearm (Active) Number of days: 2 NG/OG Tube Nasogastric Right nostril (Active) Number of days: 3 Male External Urinary Catheter Medium (Active) Number of days: 4 Central Line Indication: NA - patient does not have a central line Morales Indications: NA - patient does not have a Morales catheter Restraints: Restraints Non-Violent Or Non-Self Destructive Feb 10, 2023 5:17 Am Edt Restraint order already placed. Order is valid for duration of episode. Wounds: Constitutional: General Appearance []WDWN []Obese []Cachectic []Thin [x]Ill Eyes: Inspection of Pupils/Irises Pupils round and react: [x]Yes []No Sclera: []Icteric [x]Non-Icteric Inspection of Conjunctiva/Lids Conjunctiva: []Injected [x]Non-Injected Lids: [x]Intact []Lesion Present ENT/Mouth: External Inspection of ears/nose [x] Normal [] Scar/Lesion/Mass Inspection of teeth/lips/gums Dentition: [x][place] Teeth []Dentures Lips/Gums: [x]Intact []Lesion Present Mucosa: [x][place] [x]Moist []Dry Neck: External Appearance Overall Appearance: [x]Normal []Lesion/Mass/Crepitus Present Trachea midline: [x]Yes []No Thyroid [x]Normal []Enlarged []Tender []Mass []Absent Respiratory: Respiratory effort []Labored [x]Non-Labored - oxygen via n/c [] Mechanically-Ventilated Auscultation []Clear []Crackles []Wheezes [x]Rhonchi Cardiovascular: Auscultation Rate: [x]Regular []Irregular []Tachycardia []Bradycardia Rhythm: [x]Regular []Irregular Murmur: []Present [x]Absent Extremities Peripheral Edema: []Present [x]Absent Varicosities: []Present [x]Absent Gastrointestinal: Abdomen Palpation: [x]Soft []Firm []Tender []Non-Tender []Distended [x]Non-distended Mass: []Present [x]Absent Bowel Sounds: [x]Present - passing gas []Absent Hernia: []Present [x]Absent Liver/Spleen: []Hepatosplenomegaly []Organomegaly Absent Musculoskeletal: Inspection of Digits and Nails Cyanosis: []Present [x]Absent Clubbing: []Present [x]Absent Ischemia: []Present [x]Absent Infection: []Present [x]Absent Extremities GARCIA Equally: Except ([x]RUE [x]RLE []LUE []LLE) Strength/Tone: Intact and Normal ([]RUE []RLE [x]LUE [x]LLE) Skin: Inspection [x]Normal []Rash []Lesion []Ulcer Palpation [x]Warm []Cool [x]Dry []Clammy []Nodules []Induration []Skin-tightening Cap-Refill: [x] <3 sec [] >3 seconds (delayed) Neurologic: GCS EYE 3 GCS VERBAL 1 GCS MOTOR 5 Total GCS: 9 [x] Sensation grossly intact to left side Psych: Mental Status Alert: [x]Yes [] No Oriented: []x0 []X1 []X2 []X3 global aphasia Mood/Affect []Normal [x]Flat []Agitated []Depressed []Anxious []Calm []Sedated []NAD [facility] Labs within last 24 hours- BMP: Recent Labs 02/09/2324402/09/2393702/09/23202702/10/233502/10/2329 02/10/23202102/11/2330002/11/23 0844 NA 154* 148* 149* < > 151* < > 145 145 147* K 3.1* 3.6 -- 3.3* -- -- 3.3* -- CL 118* 116* -- 116* -- -- 111* -- CO2 31* 26 -- 28 -- -- 29 -- BUN 22* 22* -- 31* -- -- 31* -- CREATININE 1.06 0.93 -- 1.00 -- -- 0.94 -- CALCIUM 8.4 8.3* -- 8.5 -- -- 8.5 -- MG 2.2 -- -- 2.4* -- -- 2.3 -- PHOS -- 3.5 -- -- -- -- -- -- < > = values in this interval not displayed. LFTs: Recent Labs 02/09/2324402/10/233502/11/23300 AST 28 33 42 ALT 18 19 28 PROT 6.1* 6.1* 6.0* ALBUMIN 3.4* 3.4* 3.3* BILITOT 1.2 1.1 0.9 ALKPHOS 66 69 72 Glucose: Recent Labs 02/09/2324402/09/2393702/10/233502/11/23300 GLUCOSE 91 109* 110* 141* Procal: No results for input(s): PROCAL in the last 72 hours. CBC: Recent Labs 04/05/23 0245 04/06/23 0036 04/07/23 0301 WBC 9.1 8.3 8.4 HGB 14.9 15.2 15.8 HCT 43.6 45.2 48.2 PLT 247 249 253 MCV 88.6 89.3 90.9 RDW 15.0* 14.6* 14.6* ABGs: No results for input(s): PHART, OCE7YHW, PO2ART, MCA9LIY, SO2ART, M0ECDREX in the last 72 hours. Lactic Acid: No results for input(s): LACTATE in the last 72 hours. INR: No results for input(s): INR in the last 72 hours. Cardiac Injury Profile: No results for input(s): CKTOTAL, CKMB, TROPONINI in the last 72 hours. Labs in Last 3 months: Lab Results Component Value Date INR 1.1 02/05/2023 Microbiology- Urine Cx: No results found for: URINECX Blood Cx: No results found for: BLOODCX Sputum Cx: No results found for: RESPCULT Gram Stain: No results found for: LABGRAM PNA PCR: No results found for: HUMANMETAPNE COVID19: No results found for: COVID19 Legionella Ag: No results found for: LEGIONELLAPN Strep Ag: No results for input(s): STREPPNEUMO in the last 72 hours. Imaging- EKG 02/05/23:IMPRESSION: Sinus rhythm Borderline prolonged NH interval Nonspecific intraventricular conduction delay Probable inferior infarct, old Anterior ST depressions Nonspecific T abnormalities, lateral leads CTH 02/05/23:IMPRESSION: Large left MCA territory infarct with hyperdense left MCA. Sulcal effacement and mild mass effect on the left lateral ventricles. ASPECT SCORE= 0. 1 mm rightward midline shift measured at the subtle signal. No herniation. Subtle hyperdensity in the left parietal convexity could represent subtle subarachnoid hemorrhage, cortical petechial hemorrhage or apposition of luna matter. CTA head & neck 02/05/23: IMPRESSION: Perfusion CT demonstrates large perfusion abnormality consistent with large left MCA territory infarct. CTA with left M1 occlusion. Nonenhancement of the left intracranial and intracranial ICA is nonspecific and could be due to significant back pressure resulting in nonenhancement versus occlusion which could appear similar. The left TONI is patent. Moderate to severe focal stenosis of the right COMMERCIAL LOAN SPECIALIST and mild to moderate focal stenosis of the left COMMERCIAL LOAN SPECIALIST at the P1-P2 junctions as discussed. Cervical spondylosis. Approximately 10% stenosis of the right cervical ICA by NASCET criteria. NASCET criteria not applicable for the left ICA. Nonspecific frothy secretions in the right maxillary sinus which can be seen with acute sinusitis if in the appropriate clinical setting. CTH 02/06/23:IMPRESSION: Unchanged nonhemorrhagic left MCA territory infarct with stable mass effect. CTH 02/07/23: IMPRESSION: Redemonstrated subacute large left MCA territory infarct. No interval hemorrhagic conversion. Interval worsening of mass effect with increased effacement of the left lateral ventricle, 7 mm rightward midline shift measured at the septum pellucidum, mass effect on the left vertebral peduncle and partial effacement of the ambient cisterns ECHO 02/07/23:Left Ventricle: Left ventricle size is normal. Moderate basal septal thickening. Normal left ventricular systolic function. EF by 2D Simpsons Biplane is 58%. Normal wall motion. Diastolic dysfunction present with normal LVEF. Right Ventricle: Not well visualized. Right ventricle size is normal. Normal systolic function. Mitral Valve: Mild (1+) regurgitation. -mildly increased L atrium CESARIO 02/09/23: CESARIO with Large AA thrombus - filling the whole appendage and protruding into the the left atrium MRI 02/10 IMPRESSION: Worsening cerebral edema involving the distribution of the right MCA with significant compression of the left lateral ventricle and brain stem and xiomy as well as a left to right midline shift of approximately 15 mm. No evidence of hemorrhagic transformation. Assessment and Plan: Left MCA Stroke etiology - with cytotoxic edema and brain compression Etiology is embolic - secondary to KATELYNN - large thrombus filling the whole appendage and protruding into the left atrium - 02/10 MRI with worsening cerebral edema - decreased LOC this AM - GCS 9 - Current Plan SBP goal less than 160 - per Neuro Critical Care recs Will need to start Mannitol q8h - per Neuro - Plasma osmo every 8 hours prior to infusion - goal plasma osmo 320 Ok for Asp 81mg - OK for DVT prophylaxis with Heparin - Will need to be started on AC - when Neuro deems appropriate - holding in the setting of increased edema Oral antihypertensive to be given once NG / Dobhoff re established Statin - atorvastin 40mg C/w PT/OT/Speech - placement vs rehab - appreciate recs Cancel transfer - Family updated by Neurology - LSO discussion to be followed up on - sister to determine DNRCCA +/- intubation MAINTAIN HOB at [address] Scan in the AM Right Hemiparesis/ Right Facial Droop / Global Aphasia/ Dysphagia Unfortunately pulled Dobhoff out overnight - Current Plan C/w PT/OT/Speech - HOLDING TODAY - HOB at 30 degrees Holding TF - Concern for nausea / vomiting / aspiration in the setting of increased brain swellling Surgery consulted for PEG placement - family updated on this plan - holding till next week NSTEMI - elevated trop (7 on admission) CAD / Htn/ Hld Hx of WA s/p CABG Hx of complete heart block Current Plan C/w Carvedilol and Norvasc C/w PRN Labetalol and Hydralazine - goal SBP less than 160 Cardiology assessed for trop - For NSTEMI - BP goals per neurology -- start BBl once enteric access obtained (02/08) - No cardiac intervention at this time C/w Statin Nicotine Abuse - 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 Whaley Total critical care time caring for this patient with life threatening, unstable organ failure, including direct patient contact, management of life support systems, review of data including imaging and labs, discussions with other team members and physicians, excluding procedures. Speech-Language Pathology Facility/Department: [facility] T2 SPEECH THERAPY TREATMENT NAME: Catina Land : 1955 ADMISSION DATE: 02/05/2023 ADMITTING DIAGNOSIS: has History of coronary artery bypass graft x 2; Hyperlipidemia; Presence of stent in coronary artery; CAD (coronary artery disease); WA, old; Acute ischemic stroke (HCC); Arterial ischemic stroke, MCA (middle cerebral artery), left, acute (HCC); Brain compression (CMS/HCC) (HCC); Cerebral edema (CMS/HCC) (HCC); and Troponin level elevated on their problem list. Not on File Onset Date: 02/05/23 Pain:RN managing, during yes no questions and with use of a communication board, pt stated that he has pain, said yes to pain in head and feet. RN notified and discussed with RN that pt perseverates on yes (use of thumbs up to answer/acknowledge) General General Chart Reviewed: Yes Patient Assessed for Rehabilitation Services: Yes Family / Caregiver Present: Yes General Comment PPE Worn: surgical mask Subjective Subjective: Pt sister at bedside. Pt with limited verba output. Some visuals for aphasia at bedside. S: Pt was able to be awakened to participate in speech treatment. RN noted pt with increased fatigue this date and is not responding as much as previous date. O: speech and language treatment including aphasia and dysarthria. A: Pt was able to follow all simple directions given by SUPERVISOR DEHYDROGENATION. Pt was instructed to use thumbs up for yes and thumbs down for no during questions. Pt has been using thumbs up and down for multiple days and appears to use same better than yes/no communication board. Pt does seem to perseverate on "yes" or thumbs up and needs max prompting to answer simple questions with "no" or thumbs down. Pt does demonstrate some understanding of questions. When asked "is the year 2022?" Pt shrugs shoulders. When asked "Are you 20 years old?" Pt smiles and with slight laugh but then does a thumbs up. Pt appears with frustration with SUPERVISOR DEHYDROGENATION prompts him to use thumb down as a way to answer no to questions "Are you at a store right now?" Objects in room were held in pt view and near his hand (pt in loose soft restraints). With a field of 2 objects, pt did not choose named object in 3/3 trials. Pt would look at SUPERVISOR DEHYDROGENATION and shrug or would wave his hand. Pt was asked to make 3 simple verbalizations 1. Say your name 2. Say AHHH 3. Say no. For all trials pt made open vowel sound without any consonants. Pt continues with severe R sided droop/weakness/paralysis. Pt with asymmetrical smile. When asked to stick tongue out, pt smiled once again. Education Education Given: therapy schedule, role of therapy, communication Education Given To: Patient, RN Education Response: Verbalizes understanding, pt with thumbs up in agreement P: Recommend pt continue with aphasia and dysarthria treatment with speech therpay. Please continue to use communication board and gestures with pt to help him communicate his wants and needs. Treatment Plan Requires SUPERVISOR DEHYDROGENATION Intervention: Yes Frequency/Duration: 3 days/wk for 2 weeks Treatment/Goals Encounter Problems Encounter Problems (Active) Cognition/Visual Perception Patient will participate in repeat cognitive assessment as appropriate. Start: 02/05/23 Patient will utilize memory intervention for task completion Start: 02/05/23 Patient will utilize problem-solving intervention for task completion Start: 02/05/23 Communication/Dysarthria Patient will follow 1 step commands (Progressing) Start: 02/07/23 Expected End: 02/21/23 Patient will participate in further assessment of speech and language skills (Progressing) Start: 02/07/23 Expected End: 02/21/23 Patient participates in automatic speech tasks (Not Progressing) Start: 02/07/23 Expected End: 02/21/23 SUPERVISOR DEHYDROGENATION Misc Yes/no questions (Progressing) Start: 02/07/23 Expected End: 02/21/23 Pt will answer simple yes/no questions with 70% accuracy. Swallowing Patient will complete oropharyngeal strengthening exercises to improve swallow function (Progressing) Start: 02/06/23 Expected End: 02/21/23 Patient will participate in repeat clinical dysphagia evaluation (Completed) Start: 02/06/23 Expected End: 02/21/23 Met: 02/07/23 Patient will tolerate therapeutic trials of recommended consistency without clinical signs and symptoms of aspiration (Progressing) Start: 02/06/23 Expected End: 02/21/23 Therapy Time SUPERVISOR DEHYDROGENATION Individual Minutes Time In: 1355 Time Out: 1410 Minutes: 15 DAYANA Pollack 02/11/2023 2:32 PM Speech-Language Pathology Attempted to see pt this date for speech and language treatment. Upon arrival to floor, pt could not awakened with sternal rub and sound. Speech therapy will re-attempt as schedule permits and as pt is more alert to participate in aphasia treatment. Shira Parra MA, CFY-SUPERVISOR DEHYDROGENATION PROGRESS NOTE. STROKE SERVICE Patient Name:Catina Land Patient : 1955 Acct: [id number] Date of Admission: 02/05/2023 Room/Bed: [facility]212/[facility] A PCP: No primary care provider on file. Patient location ICU Remains in the hospital due to persistent unresolved acute issues, Subjective:see consult note New Complain: MRI completed yesterday showing worsening mass effect and brain compression. This morning upon seeing the patient he was lethargic and a little harder to arouse than previous days. He was not following commands that he has been. Sedation:No Diet/TF:NPO Morales: Yes VTE prophylaxis: YES SCDs & heparin 5000 TID Antithrombotic therapy in first 24 hrs: YES aspirin Statin therapy for stroke stroke patients: High intensity Anticoagulation on AF patients: N/A no history of AF Activity: PT/OT Disposition: IP rehab Current Hospital Medications: Current Facility-Administered Medications: acetaminophen (Tylenol) tablet 650 mg, 650 mg, Oral, q6h PRN, 650 mg at 02/08/23 0509 OR acetaminophen (Tylenol) suppository 650 mg, 650 mg, Rectal, q6h PRN, Cris Harman, SOCCER REFEREE - ETHYLBENZENE CRACKING SUPERVISOR amLODIPine (Norvasc) tablet 10 mg, 10 mg, Oral, Daily, Cris Harman, SOCCER REFEREE - ETHYLBENZENE CRACKING SUPERVISOR, 10 mg at 02/11/23 0833 aspirin chewable tablet 81 mg, 81 mg, Per G Tube, Daily, Cris Harman, SOCCER REFEREE - ETHYLBENZENE CRACKING SUPERVISOR, 81 mg at 02/11/23 08 atorvastatin (Lipitor) tablet 40 mg, 40 mg, Per G Tube, Daily, Cris Harman, SOCCER REFEREE - ETHYLBENZENE CRACKING SUPERVISOR, 40 mg at 02/10/232113 bisacodyl (Dulcolax) suppository 10 mg, 10 mg, Rectal, Daily PRN, Crsi Harman, SOCCER REFEREE - ETHYLBENZENE CRACKING SUPERVISOR bisacodyl (Dulcolax) suppository 10 mg, 10 mg, Rectal, Daily, Cris Harman, SOCCER REFEREE - ETHYLBENZENE CRACKING SUPERVISOR, 10 mg at 02/11/23 0900 carvedilol (Coreg) tablet 25 mg, 25 mg, Per G Tube, BID WC, Cris Harman, SOCCER REFEREE - ETHYLBENZENE CRACKING SUPERVISOR, 25 mg at 02/11/23 0833 heparin injection 5,000 Units, 5,000 Units, SubCUTAneous, 3 times per day, Cris Harman, SOCCER REFEREE - ETHYLBENZENE CRACKING SUPERVISOR, 5,000 Units at 02/11/23 0511 hydrALAZINE (Apresoline) injection 20 mg, 20 mg, IntraVENous, q4h PRN, Cris Harman, SOCCER REFEREE - ETHYLBENZENE CRACKING SUPERVISOR, 20 mg at 02/11/23 0305 ipratropium-albuterol (Duo-Neb) 0.5-2.5 mg/3 mL nebulizer solution 3 mL, 3 mL, Nebulization, TID PRN, Cris Harman, SOCCER REFEREE - ETHYLBENZENE CRACKING SUPERVISOR, 3 mL at 02/07/23 2113 ipratropium-albuterol (Duo-Neb) 0.5-2.5 mg/3 mL nebulizer solution 3 mL, 3 mL, Nebulization, BID, Cris Harman, SOCCER REFEREE - ETHYLBENZENE CRACKING SUPERVISOR, 3 mL at 02/10/23 1503 ketamine (Ketalar) injection, , , Code/trauma/sedation med, Neel Jacobson MD, 50 mg at 02/09/23 1118 labetalol (Normodyne,Trandate) injection 20 mg, 20 mg, IntraVENous, q4h PRN, Cris Harman, SOCCER REFEREE - ETHYLBENZENE CRACKING SUPERVISOR, 20 mg at 02/11/23 0511 lidocaine (Uro-Jet) 2 % gel, , Topical, Once, Cris Harman, SOCCER REFEREE - ETHYLBENZENE CRACKING SUPERVISOR mannitol 25 % injection 74 g, 1 g/kg, IntraVENous, q8h, Bibi Eddy, SOCCER REFEREE - ETHYLBENZENE CRACKING SUPERVISOR, 75 g at 02/11/23 0946 melatonin tablet 5 mg, 5 mg, Oral, Nightly PRN, Cris Haramn, SOCCER REFEREE - ETHYLBENZENE CRACKING SUPERVISOR ondansetron ODT (Zofran-ODT) disintegrating tablet 4 mg, 4 mg, Oral, q8h PRN OR ondansetron (Zofran) injection 4 mg, 4 mg, IntraVENous, q6h PRN, Cris Harman, SOCCER REFEREE - ETHYLBENZENE CRACKING SUPERVISOR oxymetazoline (Afrin) 0.05 % nasal spray 2 spray, 2 spray, Each Nostril, Once, Cris Harman, SOCCER REFEREE - ETHYLBENZENE CRACKING SUPERVISOR pantoprazole (ProtoNix) EC tablet 40 mg, 40 mg, Oral, Nightly, 40 mg at 02/10/232113 OR pantoprazole (ProtoNix) injection 40 mg, 40 mg, IntraVENous, Nightly, Cris Harman, SOCCER REFEREE - ETHYLBENZENE CRACKING SUPERVISOR, 40 mg at 02/09/232151 Phenylephrine HCl (Pressors) 1 MG/10ML injection 0.2 mg, 0.2 mg, IntraVENous, PRN, Cris Harman, SOCCER REFEREE - ETHYLBENZENE CRACKING SUPERVISOR polyethylene glycol (PEG) 3350 (Miralax) packet 17 g, 17 g, Oral, Daily, Cris Harman, SOCCER REFEREE - ETHYLBENZENE CRACKING SUPERVISOR, 17 g at 02/11/23 0833 potassium chloride (Klor-Con) packet 40 mEq, 40 mEq, Per G Tube, Once, Cris Harman, SOCCER REFEREE - ETHYLBENZENE CRACKING SUPERVISOR Propofol (Diprivan) injection, , IntraVENous, Code/trauma/sedation med, Neel Jacobson MD, 30 mg at 02/09/23 1126 senna-docusate sodium (Senokot-S) 8.6-50 MG tablet 2 tablet, 2 tablet, Oral, BID, Cris Harman, SOCCER REFEREE - ETHYLBENZENE CRACKING SUPERVISOR, 2 tablet at 02/11/23 0833 sodium chloride 0.9 % bolus 500 mL, 500 mL, IntraVENous, PRN, Bibi Eddy, SOCCER REFEREE - ETHYLBENZENE CRACKING SUPERVISOR, Last Rate: 500 mL/hr at 02/11/23 1018, 500 mL at 02/11/23 1018 sodium chloride 0.9 % infusion, 5-250 mL/hr, IntraVENous, PRN, Cris Harman, SOCCER REFEREE - ETHYLBENZENE CRACKING SUPERVISOR sodium chloride 0.9% (NS) flush 5-40 mL, 5-40 mL, IntraVENous, q12h, Cris Harman, SOCCER REFEREE - ETHYLBENZENE CRACKING SUPERVISOR, 10 mL at 02/11/23 0012 sodium chloride 0.9% (NS) flush 5-40 mL, 5-40 mL, IntraVENous, PRN, Cris Harman, SOCCER REFEREE - ETHYLBENZENE CRACKING SUPERVISOR Continuous Infusions: Allergies: Patient has no allergy information on record. Review of Systems Unable to perform ROS: Acuity of condition Objective: Telemetry: Arrhythmia:N/A Physical Examination: Patient Vitals for the past 8 hrs: BP Temp Temp src Pulse Resp SpO2 02/11/23 0800 (!) 151/82 36.7 C (98 F) Temporal 89 19 97 % 02/11/23 0700 (!) 161/95 -- -- 88 -- 98 % 02/11/23 0600 134/68 -- -- 74 15 97 % 02/11/23 0500 (!) 168/81 -- -- 90 16 98 % 02/11/23 0400 123/67 37.3 C (99.1 F) Temporal 81 16 96 % 02/11/23 0300 (!) 170/84 -- -- 97 18 97 % I/O last 3 completed shifts: In: 2615 (35.4 mL/kg) [I.V.:1092 (14.8 mL/kg); NG/GT:1423; IV Piggyback:100] Out: 2710 (36.7 mL/kg) [Urine:2710 (1 mL/kg/hr)] Weight: 73.9 kg General Physical Examination: General:young male HEENT:Normocephalic, atraumaticl CV: S1+S2, RRR, no MRG. Pulm:CTA b/l, unlabored Abdomen: Soft NT/ND. BS + Skin: Intact without ulcers, breakdowns or discoloration Extremities: normal with no edema or cyanosis Orthopedic limitation; N/A Pulses: Intact peripherally Carotid auscultation :No bruits Neurological Examination: Higher Functions: Mental Status Exam: Level of Alertness:somnolent but arousable Orientation: Aphasic Memory: Aphasic Fund of Knowledge: Aphasic Language: Globalaphasia Dysarthria present Cranial Nerves: -II Visual acuity: abnormal, limited due to patient unable to perform exam -II Visualfields: poor reliability due to patient level of consciousness or structural limitation -III Pupils (~ 3 mm OD, 3 mm OU) equal, round, reactive to light -III-IV- Extraocular Movements: intact -Nystagmus not present -Saccades and pursuits normal -V Facial sensation: appears normal Corneal's Intact bilateral -VII Facial strength:abnormal -VIII Hearing: intact -IX-X - Gag reflex not assessed -X Palate: abnormal -XI Shoulder shrug: abnormal -XII Tongue movement: not participant MotorExamination: Tone after evaluation of 4 limbs, the following findings applied: Spastic R arm Increased/spastic R leg Normal L arm and leg -Bulk: normal -Muscle Stretch afterevaluation of all limbs, and axial musculature the following findings applied: Drift: Present R arm and leg -Reflexes: after evaluation of 4 limbs, the following findings applied ; normal all limbs -Plantar responce: Equivocal Sensory appears normal butlimited reliability, Coordination: Arms limited reliability of exam/ poor participation Legs Limited reliability/poor participation Tremors not participant Gait abnormal, patient unable to walk due to acute circumstances / bed rest / safety concerns NIHSS 1a Level of consciousness: 0 1b. LOC questions: 2=Performs neither task correctly 1c. LOC commands: 2 2. Best Gaze: 1=partial gaze palsy 3. Visual: 0=No visual loss 4. Facial Palsy: 2=Partial paralysis (total or near total paralysis of the lower face) 5a. Motor left arm: 0=No drift, limb holds 90 (or 45) degrees for full 10 seconds 5b. Motor right arm: 4=No movement 6a. motor left le=No drift, limb holds 90 (or 45) degrees for full 10 seconds 6b Motor right le=No effort against gravity, limb falls 7. Limb Ataxia: 0=Absent 8. Sensory: 0=Normal; no sensory loss 9. Best Language: 3=Mute, global aphasia; no usable speech or auditory comprehension 10. Dysarthria: 2=Severe; patient speech is so slurred as to be unintelligible in the absence of or our of proportion to any dysphagia, or is mute/anarthric 11. Extinction and Inattention: 0=No abnormality 12. Distal motor function: 0=Normal Total: 17 ANCILLARY Last 24hrs Recent Results (from the past 24 hour(s)) Sodium Collection Time: 02/10/23 8:22 PM Result Value Ref Range SODIUM 145 135 - 145 mmol/L CBC Collection Time: 02/11/23 3:01 AM Result Value Ref Range Auto WBC 8.4 3.6 - 10.7 10*3/uL RBC 5.31 4.40 - 5.90 10*6/uL Hemoglobin 15.8 13.0 - 18.0 g/dL Hematocrit 48.2 40.0 - 52.0 % MCV 90.9 80.0 - 98.0 fL MCH 29.7 26.0 - 34.0 pg MCHC 32.7 32.0 - 36.0 % RDW 14.6 (H) 11.5 - 14.5 % Platelets 253 140 - 440 10*3/uL MPV 8.6 7.4 - 12.4 fL Comprehensive metabolic panel Collection Time: 02/11/23 3:01 AM Result Value Ref Range SODIUM 145 135 - 145 mmol/L POTASSIUM 3.3 (L) 3.5 - 5.1 mmol/L CHLORIDE 111 (H) 98 - 107 mmol/L CARBON DIOXIDE 29 22 - 30 mmol/L ANION GAP 4 3 - 13 mmol/L UREA NITROGEN 31 (H) 9 - 20 mg/dL CREATININE 0.94 0.66 - 1.25 mg/dL GLUCOSE 141 (H) 70 - 100 mg/dL CALCIUM 8.5 8.4 - 10.4 mg/dL AST (SGOT) 42 15 - 46 U/L ALT 28 0 - 49 U/L ALKALINE PHOSPHATASE 72 38 - 126 U/L ALBUMIN 3.3 (L) 3.5 - 5.0 g/dL BILIRUBIN, TOTAL 0.9 0.2 - 1.3 mg/dL TOTAL PROTEIN 6.0 (L) 6.3 - 8.2 g/dL eGFR 88.9 >60.0 mL/min/1.73m*2 Magnesium Collection Time: 02/11/23 3:01 AM Result Value Ref Range MAGNESIUM 2.3 1.6 - 2.3 mg/dL Sodium Collection Time: 02/11/23 8:44 AM Result Value Ref Range SODIUM 147 (H) 135 - 145 mmol/L Radiology: EKG 02/05/23:IMPRESSION: Sinus rhythm Borderline prolonged NH interval Nonspecific intraventricular conduction delay Probable inferior infarct, old Anterior ST depressions Nonspecific T abnormalities, lateral leads CTH 02/05/23:IMPRESSION: Large left MCA territory infarct with hyperdense left MCA. Sulcal effacement and mild mass effect on the left lateral ventricles. ASPECT SCORE= 0. 1 mm rightward midline shift measured at the subtle signal. No herniation. Subtle hyperdensity in the left parietal convexity could represent subtle subarachnoid hemorrhage, cortical petechial hemorrhage or apposition of luna matter. CTA head & neck 02/05/23: IMPRESSION: Perfusion CT demonstrates large perfusion abnormality consistent with large left MCA territory infarct. CTA with left M1 occlusion. Nonenhancement of the left intracranial and intracranial ICA is nonspecific and could be due to significant back pressure resulting in nonenhancement versus occlusion which could appear similar. The left TONI is patent. Moderate to severe focal stenosis of the right COMMERCIAL LOAN SPECIALIST and mild to moderate focal stenosis of the left COMMERCIAL LOAN SPECIALIST at the P1-P2 junctions as discussed. Cervical spondylosis. Approximately 10% stenosis of the right cervical ICA by NASCET criteria. NASCET criteria not applicable for the left ICA. Nonspecific frothy secretions in the right maxillary sinus which can be seen with acute sinusitis if in the appropriate clinical setting. CTH 02/06/23:IMPRESSION: Unchanged nonhemorrhagic left MCA territory infarct with stable mass effect. CTH 02/07/23: IMPRESSION: Redemonstrated subacute large left MCA territory infarct. No interval hemorrhagic conversion. Interval worsening of mass effect with increased effacement of the left lateral ventricle, 7 mm rightward midline shift measured at the septum pellucidum, mass effect on the left vertebral peduncle and partial effacement of the ambient cisterns ECHO 02/07/23:Left Ventricle: Left ventricle size is normal. Moderate basal septal thickening. Normal left ventricular systolic function. EF by 2D Simpsons Biplane is 58%. Normal wall motion. Diastolic dysfunction present with normal LVEF. Right Ventricle: Not well visualized. Right ventricle size is normal. Normal systolic function. Mitral Valve: Mild (1+) regurgitation. -mildly increased L atrium CESARIO 02/09/23: Left Atrium: Left atrium is moderately dilated. Left atrial appendage thrombus noted. It is large and fills most of the appendage. It is ~35x 15 mm in one plane. Can be seen throughout all imaging planes. There is protruding mobile portion of the thrombus into the left atrium which measures in length x width 10 mmx 4 mm. Left Ventricle: Left ventricle size is normal. Mildly increased wall thickness. Normal left ventricular systolic function. The EF by visual approximation is 60%. Normal wall motion. Interatrial Septum: No interatrial shunt visualized on color Doppler. Agitated saline study was negative. No PFO present. Aorta: Normal sized annulus and ascending aorta. There is mild atherosclerosis present in the aortic arch. There is mild atherosclerosis in the descending aorta. No significant valvular abnormalities. ASSESSMENT / PLAN/RECOMMENDATIONS: Left MCA ischemic stroke- with cytotoxic cerebral edema- brain compression ETIOLOGY:EMBOLIC from large left atrial thrombus R hemiparesis Global aphasia Facial droop CAD HPL Hx of [place] Hx of CABG Hx of 3rd degree AV block PLAN -acute brain code orders: mannitol 1gm/kg Q8H for the next 24 hours -NS 0.9% 500cc bolus to be given after each mannitol dose -Na/Osmo checks Q8H -CTH pending for the morning -hypercoagulation panel pending to be followed OP -goal Na 150-155 -aspirin 81 for now, OAC to be determined once cerebral edema is under control -atorvastatin 40 -okay for DVT ppx with heparin 5000 TID - neuro checks every hour -consulted general surgery for PEG placement - primary to manage SBP, goal <160 -rehab evaluation -OOB, PT/OT -will need OP neurology stroke follow up Will attempt to help decrease the cerebral edema with the mannitol. Will obtain a CTH in the morning to check the progress. We will follow. 40 minutes Nurse practitioner time with the patient/family in regards to review of chart, exam, further planning and updates of care PHQ2 Over the las 2 weeks, how often have you been bothered by the following problems; - Little interest or pleasure in doing things Deferred - Feeling down, depressed or hopeless Deferred - Final score: deferred, patient aphasic Patient seen and discussed with Dr. Flores Images from the original note were not included. Department of General Surgery Daily Progress Note ADMIT DATE: 02/05/2023 TODAY'S DATE: 02/11/2023 SUBJECTIVE: - MRI read yesterday, MICU awaiting NCC review to determine if hepain gtt is appropriate - awaiting formal SUPERVISOR DEHYDROGENATION evaluation - NGT in place this am, appears active - continues to have bowel function and tolerating tube feeds - he has been afebrile, HDS, had been having issues with HTN throughout the night - Labs largely unchanged from yesterday ROS: Noted above unless otherwise mentioned OBJECTIVE: VITALS: Temp: [36.7 C (98 F)-37.5 C (99.5 F)] 36.7 C (98 F) Heart Rate: [74-97] 89 Resp: [10-19] 19 BP: (111-188)/(62-95) 151/82 INTAKE/OUTPUT: Intake/Output Summary (Last 24 hours) at 02/11/2023 1028 Last data filed at 02/11/2023 0756 Gross per 24 hour Intake 901 ml Output 1635 ml Net -734 ml I/O last 3 completed shifts: In: 2615 (35.4 mL/kg) [I.V.:1092 (14.8 mL/kg); NG/GT:1423; IV Piggyback:100] Out: 2710 (36.7 mL/kg) [Urine:2710 (1 mL/kg/hr)] Weight: 73.9 kg I/O this shift: In: - Out: 125 [Urine:125] PHYSICAL EXAM: Gen: NAD, A&Ox3, pain well controlled Heart: RRR, well perfused Lungs: symmetric chest rise, normal work of breathing, breath sounds b/l Abd: soft, non tender, non distended. Non rigid. Ext: no c/c/e no gross deformities Skin: warm, well perfused, no obvious rashes, cellulitis or gross discoloration LABS CBC: Auto WBC Date Value Ref Range Status 02/11/2023 8.4 3.6 - 10.7 10*3/uL Final 02/10/2023 8.3 3.6 - 10.7 10*3/uL Final 02/09/2023 9.1 3.6 - 10.7 10*3/uL Final Hemoglobin Date Value Ref Range Status 02/11/2023 15.8 13.0 - 18.0 g/dL Final 02/10/2023 15.2 13.0 - 18.0 g/dL Final 02/09/2023 14.9 13.0 - 18.0 g/dL Final Platelets Date Value Ref Range Status 02/11/2023 253 140 - 440 10*3/uL Final 02/10/2023 249 140 - 440 10*3/uL Final 02/09/2023 247 140 - 440 10*3/uL Final BMP: SODIUM Date Value Ref Range Status 02/11/2023 147 (H) 135 - 145 mmol/L Final 02/11/2023 145 135 - 145 mmol/L Final 02/10/2023 145 135 - 145 mmol/L Final POTASSIUM Date Value Ref Range Status 02/11/2023 3.3 (L) 3.5 - 5.1 mmol/L Final 02/10/2023 3.3 (L) 3.5 - 5.1 mmol/L Final 02/09/2023 3.6 3.5 - 5.1 mmol/L Final CHLORIDE Date Value Ref Range Status 02/11/2023 111 (H) 98 - 107 mmol/L Final 02/10/2023 116 (H) 98 - 107 mmol/L Final 02/09/2023 116 (H) 98 - 107 mmol/L Final CARBON DIOXIDE Date Value Ref Range Status 02/11/2023 29 22 - 30 mmol/L Final 02/10/2023 28 22 - 30 mmol/L Final 02/09/2023 26 22 - 30 mmol/L Final UREA NITROGEN Date Value Ref Range Status 02/11/2023 31 (H) 9 - 20 mg/dL Final 02/10/2023 31 (H) 9 - 20 mg/dL Final 02/09/2023 22 (H) 9 - 20 mg/dL Final CREATININE Date Value Ref Range Status 02/11/2023 0.94 0.66 - 1.25 mg/dL Final 02/10/2023 1.00 0.66 - 1.25 mg/dL Final 02/09/2023 0.93 0.66 - 1.25 mg/dL Final 01/26/2022 1.10 0.52 - 1.25 mg/dL Final Hepatic: AST (SGOT) Date Value Ref Range Status 02/11/2023 42 15 - 46 U/L Final 02/10/2023 33 15 - 46 U/L Final 02/09/2023 28 15 - 46 U/L Final ALT Date Value Ref Range Status 02/11/2023 28 0 - 49 U/L Final 02/10/2023 19 0 - 49 U/L Final 02/09/2023 18 0 - 49 U/L Final ALBUMIN Date Value Ref Range Status 02/11/2023 3.3 (L) 3.5 - 5.0 g/dL Final 02/10/2023 3.4 (L) 3.5 - 5.0 g/dL Final 02/09/2023 3.4 (L) 3.5 - 5.0 g/dL Final BILIRUBIN, TOTAL Date Value Ref Range Status 02/11/2023 0.9 0.2 - 1.3 mg/dL Final 02/10/2023 1.1 0.2 - 1.3 mg/dL Final 02/09/2023 1.2 0.2 - 1.3 mg/dL Final ALKALINE PHOSPHATASE Date Value Ref Range Status 02/11/2023 72 38 - 126 U/L Final 02/10/2023 69 38 - 126 U/L Final 02/09/2023 66 38 - 126 U/L Final Current Inpatient Medications Scheduled Meds:amLODIPine, 10 mg, Oral, Daily aspirin, 81 mg, Per G Tube, Daily atorvastatin, 40 mg, Per G Tube, Daily bisacodyl, 10 mg, Rectal, Daily carvedilol, 25 mg, Per G Tube, BID WC heparin, 5,000 Units, SubCUTAneous, 3 times per day ipratropium-albuterol, 3 mL, Nebulization, BID lidocaine, , Topical, Once mannitol, 1 g/kg, IntraVENous, q8h oxymetazoline, 2 spray, Each Nostril, Once pantoprazole, 40 mg, Oral, Nightly Or pantoprazole, 40 mg, IntraVENous, Nightly polyethylene glycol (PEG) 3350, 17 g, Oral, Daily potassium chloride, 40 mEq, Per G Tube, Once senna-docusate sodium, 2 tablet, Oral, BID sodium chloride 0.9%, 5-40 mL, IntraVENous, q12h Continuous Infusions: PRN Meds:PRN medications: acetaminophen OR acetaminophen, bisacodyl, hydrALAZINE, ipratropium-albuterol, ketamine, labetalol, melatonin, ondansetron ODT OR ondansetron, Phenylephrine HCl (Pressors), Propofol, sodium chloride, sodium chloride, sodium chloride 0.9% ASSESSMENT AND PLAN: This is a 67 y.o. male with history of CAD/[place] s/p PCI and CABG who presents with a large L MCA stoke. He is now recovering but there is concern for dysphagia and aspiration. - Will need formal SUPERVISOR DEHYDROGENATION evaluation with documentation of aspiration - Will need cardiac risk stratification, if G tube would be placed would recommend lap assisted G- tube placement - would continue NGT feeds at this time - would need neurology reassessment of recent MRI findings - would not delay anticoagulation for PEG placement would likely be next week. - Remainder of care per primary service - General surgery will continue to follow. Will discuss with Dr. Tyrese Felix MD General Surgery PGY-5 02/11/23 10:28 AM This note may have been dictated using [employer] Practice Edition 2.6 and/or [employer] Voice Recognition Feature. The document was proofread; however, unrecognized voice recognition replenishment analyst errors may be present. ICU Transfer Checklist Transfer Med Reconciliation (resume home meds if able, convert to PO if able) Complete Antibiotics (name, indication, duration, convert to PO if able) None Steroid (indication, duration, convert to PO if able) None Anticipated [place] Medications (ICU initiated) or Dose Changes and Indication Yes, indication Likely AC to be added - Permanently Discontinued Home Medications and Reason for medication contraindication To be determined Morales Catheter (please remove if able. Note: place DC order) No Central Line (please remove if able. Note: place DC order) No Transfer Discussed with: If additional questions for ICU team within 24 hours of ICU transfer, page [phone] for clarifications. Physical Therapy Pt OOR. Will attempt at later time as schedule allows. Marycarmen Kolb PT Speech-Language Pathology Attempted to see patient for speech/language therapy, but patient leaving unit for testing. Will re-attempt as schedule permits. Catrachita Mcintyre MA, CCC/SUPERVISOR DEHYDROGENATION Nutrition Assessment Type and Reason for Visit: Reassess Nutrition Recommendations/Plan: Recommend EN: Jevity 1.5 @ goal rate of 50 ml/hr. Consider free water flushes of 150 ml q 4 hours (= 900 ml ) Monitor weight, labs, I/O, skin assessment, BM, tolerance to EN, and overall nutritional status. RD will follow up weekly. Malnutrition Assessment: Malnutrition Status: At risk for malnutrition (Comment) Context: Acute Illness Findings of the 6 clinical characteristics of malnutrition: Energy Intake: Mild decrease in energy intake (Comment) (Dobhoff placed and TF started on 02/07/23. TF at goal rate since 02/07. TF briefly stopped for CESARIO on 02/09/23 which resumed. TF off this am- pt pulled out dobhoff overnight.) Weight Loss: Unable to assess (Weight history is limited in Epic. However, weights stable since admission ~163 lbs.) Body Fat Loss: No significant body fat loss Muscle Mass Loss: No significant muscle mass loss Fluid Accumulation: No significant fluid accumulation Extremities Senior Executive Compensation Analyst Strength: Not Performed Nutrition Assessment: PMH of CAD, [place], (s/p CABG & stenting), and HLD. Patient presented to [facility] ED on 02/05/23 after being found down on floor of bathroom covered in vomit by EMS. Family had called for a well check after being unable to contact the patient. Last known well time was sometime Tuesday02/03/23 in the AM. Patient was last seen by neighbors at that time. CT imaging showed L MCA infarct. Out of window for TNK, not amenable to thrombectomy d/t large established core infarct. He was admitted to T2 ICU. Cardiology following d/t NSTEMI med manage with beta courtney & statin. He was briefly on 3% NaCl for cerebral edema & mass effect. CESARIO showed a very large KATELYNN thrombus. Patient had some aspiration yesterday leading to some respiratory compromise so he did not go for his MRI. Awaiting MRI to check for hemorrhagic transformation if there is any prior to placing the patient on anticoagulation. Dobhoff in place for nutrition due to ongoing speech therapy for dysphagia. Patient pulled out dobhoff overnight and replaced with CHILDREN'S COUNSELOR- awaiting xray. Tube feeds off at time of RD's visit this am. General surgery consulted- likely needs PEG for short period. Sister at bedside- she reports patient with concerns about money. Patient trying to gesture with hand- unable to understand what he wants. Estimated Daily Nutrient Needs: Energy Requirements Based On: Kcal/kg Weight Used for Energy Requirements: Current Weight for Energy Calculation (kg): 74.3 kg Total Energy Requirements (kcals/day): 9693-3414 (20-25 kcal/kg) Weight Used for Protein Requirements: Current Weight in Kg Used for Protein Requirements: 74.3 kg Estimated Total Protein (g/day): 74 (1.0 g/kg) Estimated Daily Total Fluid (ml/day): per MD Nutrition Related Findings: Kar = 14, GI WDL, BM on 02/10, expressive aphasia, gestures with hands, + dobhoff, non pitting BLE edema, I/O: +505.2 (since admit) Wound Type: (blister/abrasion right hip) BMP: Recent Labs 02/08/2352002/08/23200602/09/2324402/09/23 0938 02/09/23202702/10/233502/10/23 0829 NA 157* < > 154* 148* 149* 150* 151* 148* K 3.3* -- 3.1* 3.6 -- 3.3* -- CL 127* -- 118* 116* -- 116* -- CO2 23 -- 31* 26 -- 28 -- BUN 18 -- 22* 22* -- 31* -- CREATININE 0.86 -- 1.06 0.93 -- 1.00 -- GLUCOSE 144* -- 91 109* -- 110* -- CALCIUM 8.4 -- 8.4 8.3* -- 8.5 -- MG 2.2 -- 2.2 -- -- 2.4* -- PHOS -- -- -- 3.5 -- -- -- < > = values in this interval not displayed. HEPATIC: Recent Labs 02/08/2352002/09/2324402/10/2335 AST 31 28 33 ALT 18 18 19 BILITOT 1.0 1.2 1.1 ALKPHOS 66 66 69 Scheduled Medications: amLODIPine, 10 mg, Oral, Daily aspirin, 81 mg, Per G Tube, Daily atorvastatin, 40 mg, Per G Tube, Daily bisacodyl, 10 mg, Rectal, Daily carvedilol, 25 mg, Per G Tube, BID WC heparin, 5,000 Units, SubCUTAneous, 3 times per day ipratropium-albuterol, 3 mL, Nebulization, BID lidocaine, , Topical, Once oxymetazoline, 2 spray, Each Nostril, Once pantoprazole, 40 mg, Oral, Nightly Or pantoprazole, 40 mg, IntraVENous, Nightly polyethylene glycol (PEG) 3350, 17 g, Oral, Daily Potassium Bicarb-Citric Acid, 40 mEq, Per G Tube, Once senna-docusate sodium, 2 tablet, Oral, BID sodium chloride 0.9%, 5-40 mL, IntraVENous, q12h Current Nutrition Therapies: Enteral Nutrition Feeding Route: Nasogastric EN Formula: Jevity 1.5 K[place] EN Schedule: Continuous EN Feeding Regimen: 0 ml/hr Additives/Modulars: None Water Flushes: 30 ml q 6 hours- consider increase free water flushes due to hypernatremia Current EN & Flush Order Provides: Tube feeds are off this am- Goal EN & Flush Order Provides: Jevity 1.5 @ 50 ml per hour provides 1800 kcals, 76 gm protein, 912 ml free water (24 kcals/kg, 1.0 gm protein/kg of CBW 73.9 kg) Anthropometric Measures: Height: 165.1 cm (5' 5") Current Body Weight: 73.9 kg (162 lb 14.7 oz) (02/09/23) Weight Source: Not Specified Usual Body Weight: (Weight history in limited in Epic. 148# on 04/13/2017) Dixon Body Weight (lbs) (Calculated): 136 lbs Dixon Body Weight (Kg) (Calculated): 62 kg % Dixon Body Weight (Calculated): 120.4 % BMI (kg/m2) (Calculated): 27.1 Weight Adjustment For: No Adjustment BMI Categories: Overweight (BMI 25.0-29.9) Nutrition Interventions: Nutrition Education/Counseling: No recommendation at this time Coordination of Nutrition Care: Continue to monitor while inpatient, Speech Therapy Goals: Goals: Meet at least 75% of estimated needs, Tolerate nutrition support at goal rate Nutrition Monitoring and Evaluation: Behavioral-Environmental Outcomes: None Identified Food/Nutrient Intake Outcomes: Enteral Nutrition Intake/Tolerance Physical Signs/Symptoms Outcomes: Biochemical Data, Chewing or Swallowing, GI Status, Fluid Status or Edema, Nutrition Focused Physical Findings, Skin, Weight Discharge Planning: Too soon to determine Alyssa Swenson RD Contact: *[phone] ICU Progress Note Name: Catina Land : 1955(67 y.o.) Date: 02/10/23 Team: MICU Attending: Subjective: Hospital Summary: 67 year old male with a past medical history of CAD, [place] is s/p CABG and stenting. 02/05 to [facility] ED post being found down on the bathroom floor covered in vomit. EMS called to house by family 02/05 as they could not reach him for a wellness check, last well was on Tuesday per neighbors. Stroke call initiated, CTH with left MCA infarct, not candidate for TNK, not amendable to thrombectomy d/t large established core infarct. Also noted to have Trop elevation concerning for NSTEMI. Admitted to T2 for ongoing assessment, Neuro CritCare and Cardiology following. Briefly required 3% saline for cerebral edema / mass effect. Course of ICU as follows - 02/06 - CT head showed L MCA territory infarct w/ stable mass effect. BP overnight 150-170. Right side flaccid following commands L side. Code status changed to Full code d/t improvement. 3% NS @ 50ml/h /3 - Increased SBP 160-190, requiring multiple PRN meds. 3% NaCl @ 50ml/h. Follows simple commands on left right flaccid / - Ongoing hypertension overnight SBP 180-210, multiple PRN meds given. + right facial droop and R hemiparesis. Able to follow basic commands w/ left upper and lower extr. CTH with increased Cytotoxic edema and compression / - Increased LOC - increased agitation - starting PO antihypertensive meds - CESARIO completed - Large AA thrombus 02/10 - Pulled out Dobhoff overnight - Surgery consulted for PEG tube - as patient will need to start AC - Awaiting MRI today Scheduled Meds:amLODIPine, 10 mg, Oral, Daily ampicillin-sulbactam, 3,000 mg, IntraVENous, q6h aspirin, 81 mg, Per G Tube, Daily atorvastatin, 40 mg, Per G Tube, Daily bisacodyl, 10 mg, Rectal, Daily carvedilol, 25 mg, Per G Tube, BID WC heparin, 5,000 Units, SubCUTAneous, 3 times per day ipratropium-albuterol, 3 mL, Nebulization, BID lidocaine, , Topical, Once oxymetazoline, 2 spray, Each Nostril, Once pantoprazole, 40 mg, Oral, Nightly Or pantoprazole, 40 mg, IntraVENous, Nightly polyethylene glycol (PEG) 3350, 17 g, Oral, Daily senna-docusate sodium, 2 tablet, Oral, BID sodium chloride 0.9%, 5-40 mL, IntraVENous, q12h Continuous Infusions: Objective: Last Vitals: BP MAP (!) 186/98 (02/10/23 0800) 124 (02/10/23 0800) Arterial BP MAP Temp 36.6 C (97.9 F) (02/10/23 0000) Pulse 80 (02/10/23 0800) Resp 15 (02/10/23 0800) SpO2 97 % (02/10/23 0700) Weight 73.9 kg (163 lb) (02/09/23 1202) BMI Body mass index is 27.12 kg/m . I/O: 02/09 0700 - 02/10 0659 In: 2164 [I.V.:1092] Out: 2235 [Urine:2235] Ventilator: Oxygen Delivery: O2 Flow Rate (L/min): 2 L/min Invasive Lines / Tubes / Drains: Peripheral IV 02/05/23 Anterior;Left;Proximal Forearm (Active) Number of days: 4 Peripheral IV 02/07/23 Anterior;Proximal;Right Forearm (Active) Number of days: 2 NG/OG Tube Nasogastric Right nostril (Active) Number of days: 3 Male External Urinary Catheter Medium (Active) Number of days: 4 Central Line Indication: NA - patient does not have a central line Morales Indications: NA - patient does not have a Morales catheter Restraints: Restraints Non-Violent Or Non-Self Destructive Feb 10, 2023 5:17 Am Edt Restraint order already placed. Order is valid for duration of episode. Wounds: Constitutional: General Appearance []WDWN []Obese []Cachectic []Thin [x]Ill Eyes: Inspection of Pupils/Irises Pupils round and react: [x]Yes []No Sclera: []Icteric [x]Non-Icteric Inspection of Conjunctiva/Lids Conjunctiva: []Injected [x]Non-Injected Lids: [x]Intact []Lesion Present ENT/Mouth: External Inspection of ears/nose [x] Normal [] Scar/Lesion/Mass Inspection of teeth/lips/gums Dentition: [x][place] Teeth []Dentures Lips/Gums: [x]Intact []Lesion Present Mucosa: [x][place] [x]Moist []Dry Neck: External Appearance Overall Appearance: [x]Normal []Lesion/Mass/Crepitus Present Trachea midline: [x]Yes []No Thyroid [x]Normal []Enlarged []Tender []Mass []Absent Respiratory: Respiratory effort []Labored [x]Non-Labored [] Mechanically-Ventilated Auscultation []Clear []Crackles []Wheezes [x]Rhonchi - thick secretions - rust colored secondary to NG trauma overnight Cardiovascular: Auscultation Rate: [x]Regular []Irregular []Tachycardia []Bradycardia Rhythm: [x]Regular []Irregular Murmur: []Present [x]Absent Extremities Peripheral Edema: []Present [x]Absent Varicosities: []Present [x]Absent Gastrointestinal: Abdomen Palpation: [x]Soft []Firm []Tender []Non-Tender []Distended [x]Non-distended Mass: []Present [x]Absent Bowel Sounds: [x]Present []Absent Hernia: []Present [x]Absent Liver/Spleen: []Hepatosplenomegaly []Organomegaly Absent Musculoskeletal: Inspection of Digits and Nails Cyanosis: []Present [x]Absent Clubbing: []Present [x]Absent Ischemia: []Present [x]Absent Infection: []Present [x]Absent Extremities GARCIA Equally: Except ([x]RUE [x]RLE []LUE []LLE) Strength/Tone: Intact and Normal ([]RUE []RLE [x]LUE [x]LLE) Skin: Inspection [x]Normal []Rash []Lesion []Ulcer Palpation [x]Warm []Cool [x]Dry []Clammy []Nodules []Induration []Skin-tightening Cap-Refill: [x] <3 sec [] >3 seconds (delayed) Neurologic: GCS EYE: 4 - Opens spontaneously GCS MOTOR: 6 - Obeys commands for movement GCS VERBAL: 1 - No response Total GCS: 11 [x] Sensation grossly intact to left side Psych: Mental Status Alert: [x]Yes [] No Oriented: []x0 []X1 []X2 []X3 global aphasia Mood/Affect []Normal [x]Flat []Agitated []Depressed []Anxious []Calm []Sedated []NAD Select Labs within last 24 hours- BMP: Recent Labs 02/08/2352002/08/23200602/09/2324402/09/2393702/09/23202702/10/23 003 NA 157* < > 154* 148* 149* 150* 151* K 3.3* -- 3.1* 3.6 -- 3.3* CL 127* -- 118* 116* -- 116* CO2 23 -- 31* 26 -- 28 BUN 18 -- 22* 22* -- 31* CREATININE 0.86 -- 1.06 0.93 -- 1.00 CALCIUM 8.4 -- 8.4 8.3* -- 8.5 MG 2.2 -- 2.2 -- -- 2.4* PHOS -- -- -- 3.5 -- -- < > = values in this interval not displayed. LFTs: Recent Labs 02/08/2352002/09/2324402/10/2335 AST 31 28 33 ALT 18 18 19 PROT 6.4 6.1* 6.1* ALBUMIN 3.6 3.4* 3.4* BILITOT 1.0 1.2 1.1 ALKPHOS 66 66 69 Glucose: Recent Labs 02/08/2352002/09/2324402/09/2393702/10/2335 GLUCOSE 144* 91 109* 110* Procal: No results for input(s): PROCAL in the last 72 hours. CBC: Recent Labs 02/08/2352002/09/2324402/10/2335 WBC 8.3 9.1 8.3 HGB 15.1 14.9 15.2 HCT 45.0 43.6 45.2 PLT 232 247 249 MCV 89.6 88.6 89.3 RDW 14.9* 15.0* 14.6* ABGs: No results for input(s): PHART, LRA4WNJ, PO2ART, DJC9QPG, SO2ART, P4CDUTJI in the last 72 hours. Lactic Acid: No results for input(s): LACTATE in the last 72 hours. INR: No results for input(s): INR in the last 72 hours. Cardiac Injury Profile: No results for input(s): CKTOTAL, CKMB, TROPONINI in the last 72 hours. Labs in Last 3 months: Lab Results Component Value Date INR 1.1 02/05/2023 Microbiology- Urine Cx: No results found for: URINECX Blood Cx: No results found for: BLOODCX Sputum Cx: No results found for: RESPCULT Gram Stain: No results found for: LABGRAM PNA PCR: No results found for: HUMANMETAPNE COVID19: No results found for: COVID19 Legionella Ag: No results found for: LEGIONELLAPN Strep Ag: No results for input(s): STREPPNEUMO in the last 72 hours. Imaging- EKG 02/05/23:IMPRESSION: Sinus rhythm Borderline prolonged NH interval Nonspecific intraventricular conduction delay Probable inferior infarct, old Anterior ST depressions Nonspecific T abnormalities, lateral leads CTH 02/05/23:IMPRESSION: Large left MCA territory infarct with hyperdense left MCA. Sulcal effacement and mild mass effect on the left lateral ventricles. ASPECT SCORE= 0. 1 mm rightward midline shift measured at the subtle signal. No herniation. Subtle hyperdensity in the left parietal convexity could represent subtle subarachnoid hemorrhage, cortical petechial hemorrhage or apposition of luna matter. CTA head & neck 02/05/23: IMPRESSION: Perfusion CT demonstrates large perfusion abnormality consistent with large left MCA territory infarct. CTA with left M1 occlusion. Nonenhancement of the left intracranial and intracranial ICA is nonspecific and could be due to significant back pressure resulting in nonenhancement versus occlusion which could appear similar. The left TONI is patent. Moderate to severe focal stenosis of the right COMMERCIAL LOAN SPECIALIST and mild to moderate focal stenosis of the left COMMERCIAL LOAN SPECIALIST at the P1-P2 junctions as discussed. Cervical spondylosis. Approximately 10% stenosis of the right cervical ICA by NASCET criteria. NASCET criteria not applicable for the left ICA. Nonspecific frothy secretions in the right maxillary sinus which can be seen with acute sinusitis if in the appropriate clinical setting. CTH 02/06/23:IMPRESSION: Unchanged nonhemorrhagic left MCA territory infarct with stable mass effect. CTH 02/07/23: IMPRESSION: Redemonstrated subacute large left MCA territory infarct. No interval hemorrhagic conversion. Interval worsening of mass effect with increased effacement of the left lateral ventricle, 7 mm rightward midline shift measured at the septum pellucidum, mass effect on the left vertebral peduncle and partial effacement of the ambient cisterns ECHO 02/07/23:Left Ventricle: Left ventricle size is normal. Moderate basal septal thickening. Normal left ventricular systolic function. EF by 2D Simpsons Biplane is 58%. Normal wall motion. Diastolic dysfunction present with normal LVEF. Right Ventricle: Not well visualized. Right ventricle size is normal. Normal systolic function. Mitral Valve: Mild (1+) regurgitation. -mildly increased L atrium CESARIO 02/09/23: CESARIO with Large AA thrombus - filling the whole appendage and protruding into the the left atrium Assessment and Plan: Principal Problem: Acute ischemic stroke (HCC) Active Problems: Arterial ischemic stroke, MCA (middle cerebral artery), left, acute (HCC) Brain compression (CMS/HCC) (HCC) Cerebral edema (CMS/HCC) (HCC) Troponin level elevated Assessment: Left MCA Stroke etiology - with cytotoxic edema and brain compression Etiology is embolic - secondary to KATELYNN - large thrombus filling the whole appendage and protruding into the left atrium Current Plan SBP goal less than 160 - per Neuro Critical Care recs Oral antihypertensive to be given once NG / Dobhoff re established Ok for Asp 81mg - Will need to be started on AC - when Neuro deems appropriate Statin - atorvastin 40mg MRI pending today C/w PT/OT/Speech - placement vs rehab - appreciate recs Will be OK to transfer to step down Neuro floor Right Hemiparesis/ Right Facial Droop / Global Aphasia/ Dysphagia Unfortunately pulled Dobhoff out overnight - Current Plan C/w PT/OT/Speech - placement vs rehab - appreciate recs C/w TF - Cleared for Pureed and thins initially --> concerns for mental status C/w aggressive mouth care High aspiration risk - HOB maintained 30 degrees Surgery consulted for PEG placement - family updated on this plan NSTEMI - elevated trop (7 on admission) CAD / Htn/ Hld Hx of [place] s/p CABG Hx of complete heart block Current Plan C/w Carvedilol and Norvasc C/w PRN Labetalol and Hydralazine - goal SBP less than 160 Cardiology assessed for trop - For NSTEMI - BP goals per neurology -- start BBl once enteric access obtained (02/08) - No intervention at this time C/w Statin Nicotine Abuse - 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 Whaley Total critical care time caring for this patient with life threatening, unstable organ failure, including direct patient contact, management of life support systems, review of data including imaging and labs, discussions with other team members and physicians, excluding procedures. PROGRESS NOTE. STROKE SERVICE Patient Name:Catina Land Patient : 1955 Acct: [id number] Date of Admission: 02/05/2023 Room/Bed: [facility] [facility] A PCP: No primary care provider on file. Patient location ICU Remains in the hospital due to persistent unresolved acute issues, Subjective:see consult note New Complain: Had some aspiration yesterday afternoon leading to some respiratory compromise so he did not go for his MRI. No further documented events overnight. SBP have been 140-190s. Afebrile. Na 151. Seeing him today he was awake and remained aphasic. Sedation:No Diet/TF:NPO tube feeds Morales: Yes VTE prophylaxis: YES SCDs & heparin 5000 TID Antithrombotic therapy in first 24 hrs: YES aspirin Statin therapy for stroke stroke patients: High intensity Anticoagulation on AF patients: N/A no history of AF Activity: PT/OT Disposition: IP rehab Current Hospital Medications: Current Facility-Administered Medications: acetaminophen (Tylenol) tablet 650 mg, 650 mg, Oral, q6h PRN, 650 mg at 02/08/23 0509 OR acetaminophen (Tylenol) suppository 650 mg, 650 mg, Rectal, q6h PRN, Eli Wires, SOCCER REFEREE - CHILDREN'S COUNSELOR amLODIPine (Norvasc) tablet 10 mg, 10 mg, Oral, Daily, Sarah Randall SOCCER REFEREE - ETHYLBENZENE CRACKING SUPERVISOR ampicillin-sulbactam (Unasyn) 3,000 mg in sodium chloride 0.9 % 100 mL IVPB (Add-[place]), 3,000 mg, IntraVENous, q6h, Eli Suazo SOCCER REFEREE - CHILDREN'S COUNSELOR, Stopped at 02/10/23 0547 aspirin chewable tablet 81 mg, 81 mg, Per G Tube, Daily, Samson Camarena MD, 81 mg at 02/09/23 0846 atorvastatin (Lipitor) tablet 40 mg, 40 mg, Per G Tube, Daily, Samson Camarena MD, 40 mg at 02/09/23 2152 bisacodyl (Dulcolax) suppository 10 mg, 10 mg, Rectal, Daily PRN, Eli Suazo SOCCER REFEREE - CHILDREN'S COUNSELOR bisacodyl (Dulcolax) suppository 10 mg, 10 mg, Rectal, Daily, Sarah Randall SOCCER REFEREE - ETHYLBENZENE CRACKING SUPERVISOR, 10 mg at 02/09/23 1525 carvedilol (Coreg) tablet 25 mg, 25 mg, Per G Tube, BID WC, Eli Suazo, SOCCER REFEREE - CHILDREN'S COUNSELOR, 25 mg at 02/09/23 1715 heparin injection 5,000 Units, 5,000 Units, SubCUTAneous, 3 times per day, Eli Suazo, SOCCER REFEREE - CHILDREN'S COUNSELOR, 5,000 Units at 02/10/23 0517 hydrALAZINE (Apresoline) injection 20 mg, 20 mg, IntraVENous, q4h PRN, Horace Garcia MD, 20 mg at 02/09/23 0534 ipratropium-albuterol (Duo-Neb) 0.5-2.5 mg/3 mL nebulizer solution 3 mL, 3 mL, Nebulization, TID PRN, Von Mcqueen DO, 3 mL at 02/07/232112 ipratropium-albuterol (Duo-Neb) 0.5-2.5 mg/3 mL nebulizer solution 3 mL, 3 mL, Nebulization, BID, Andrew Whaley, ketamine (Ketalar) injection, , , Code/trauma/sedation med, Neel Jacobson MD, 50 mg at 02/09/23 1118 labetalol (Normodyne,Trandate) injection 20 mg, 20 mg, IntraVENous, q4h PRN, Horace Garcia MD, 20 mg at 02/08/23 1504 lidocaine (Uro-Jet) 2 % gel, , Topical, Once, Neel Jacobson MD melatonin tablet 5 mg, 5 mg, Oral, Nightly PRN, Horace Garcia MD ondansetron ODT (Zofran-ODT) disintegrating tablet 4 mg, 4 mg, Oral, q8h PRN OR ondansetron (Zofran) injection 4 mg, 4 mg, IntraVENous, q6h PRN, Eli Suazo SOCCER REFEREE - CHILDREN'S COUNSELOR oxymetazoline (Afrin) 0.05 % nasal spray 2 spray, 2 spray, Each Nostril, Once, Neel Jacobson MD pantoprazole (ProtoNix) EC tablet 40 mg, 40 mg, Oral, Nightly OR pantoprazole (ProtoNix) injection 40 mg, 40 mg, IntraVENous, Nightly, Eli Suazo SOCCER REFEREE - CHILDREN'S COUNSELOR, 40 mg at 02/09/232151 Phenylephrine HCl (Pressors) 1 MG/10ML injection 0.2 mg, 0.2 mg, IntraVENous, PRN, Neel Jacobson MD polyethylene glycol (PEG) 3350 (Miralax) packet 17 g, 17 g, Oral, Daily, Sarah Randall APRN - ETHYLBENZENE CRACKING SUPERVISOR, 17 g at 02/09/23 1526 Propofol (Diprivan) injection, , IntraVENous, Code/trauma/sedation med, Neel Jacobson MD, 30 mg at 02/09/23 1126 senna-docusate sodium (Senokot-S) 8.6-50 MG tablet 2 tablet, 2 tablet, Oral, BID, Sarah Randall APRN - ETHYLBENZENE CRACKING SUPERVISOR, 2 tablet at 02/09/23 2152 sodium chloride 0.9 % infusion, 5-250 mL/hr, IntraVENous, PRN, Eli Wires, SOCCER REFEREE - CHILDREN'S COUNSELOR sodium chloride 0.9% (NS) flush 5-40 mL, 5-40 mL, IntraVENous, q12h, Eli Wires, SOCCER REFEREE - CHILDREN'S COUNSELOR, 10 mL at 02/09/23 2329 sodium chloride 0.9% (NS) flush 5-40 mL, 5-40 mL, IntraVENous, PRN, Eli Wires, SOCCER REFEREE - CHILDREN'S COUNSELOR Continuous Infusions: Allergies: Patient has no allergy information on record. Review of Systems Unable to perform ROS: Acuity of condition Objective: Telemetry: Arrhythmia:N/A Physical Examination: Patient Vitals for the past 8 hrs: BP Temp Temp src Pulse Resp SpO2 02/10/23 0614 (!) 191/94 -- -- 74 11 98 % 02/10/23 0600 (!) 196/98 -- -- 82 14 99 % 02/10/23 0500 (!) 169/89 -- -- 72 12 95 % 02/10/23 0400 (!) 141/77 -- -- 69 12 96 % 02/10/23 0300 (!) 142/74 -- -- 70 12 96 % 02/10/23 0200 (!) 148/77 -- -- 75 12 97 % 02/10/23 0100 (!) 165/77 -- -- 73 13 98 % 02/10/23 0000 (!) 152/78 36.6 C (97.9 F) Temporal 82 13 94 % I/O last 3 completed shifts: In: 2944 (39.8 mL/kg) [I.V.:1342 (18.2 mL/kg); NG/GT:1602] Out: 3040 (41.1 mL/kg) [Urine:3040 (1.1 mL/kg/hr)] Weight: 73.9 kg General Physical Examination: General:young male HEENT:Normocephalic, atraumaticl CV: S1+S2, RRR, no MRG. Pulm:CTA b/l, unlabored Abdomen: Soft NT/ND. BS + Skin: Intact without ulcers, breakdowns or discoloration Extremities: normal with no edema or cyanosis Orthopedic limitation; N/A Pulses: Intact peripherally Carotid auscultation :No bruits Neurological Examination: Higher Functions: Mental Status Exam: Level of Alertness:somnolent but arousable Orientation: Aphasic Memory: Aphasic Fund of Knowledge: Aphasic Language: Globalaphasia Dysarthria present Cranial Nerves: -II Visual acuity: abnormal, limited due to patient unable to perform exam -II Visualfields: poor reliability due to patient level of consciousness or structural limitation -III Pupils (~ 3 mm OD, 3 mm OU) equal, round, reactive to light -III-IV- Extraocular Movements: intact -Nystagmus not present -Saccades and pursuits normal -V Facial sensation: appears normal Corneal's Intact bilateral -VII Facial strength:abnormal -VIII Hearing: intact -IX-X - Gag reflex not assessed -X Palate: abnormal -XI Shoulder shrug: abnormal -XII Tongue movement: not participant MotorExamination: Tone after evaluation of 4 limbs, the following findings applied: Spastic R arm Increased/spastic R leg Normal L arm and leg -Bulk: normal -Muscle Stretch afterevaluation of all limbs, and axial musculature the following findings applied: Drift: Present R arm and leg -Reflexes: after evaluation of 4 limbs, the following findings applied ; normal all limbs -Plantar responce: Equivocal Sensory appears normal butlimited reliability, Coordination: Arms limited reliability of exam/ poor participation Legs Limited reliability/poor participation Tremors not participant Gait abnormal, patient unable to walk due to acute circumstances / bed rest / safety concerns NIHSS 1a Level of consciousness: 0 1b. LOC questions: 2=Performs neither task correctly 1c. LOC commands: 2 2. Best Gaze: 1=partial gaze palsy 3. Visual: 0=No visual loss 4. Facial Palsy: 2=Partial paralysis (total or near total paralysis of the lower face) 5a. Motor left arm: 0=No drift, limb holds 90 (or 45) degrees for full 10 seconds 5b. Motor right arm: 4=No movement 6a. motor left le=No drift, limb holds 90 (or 45) degrees for full 10 seconds 6b Motor right le=No effort against gravity, limb falls 7. Limb Ataxia: 0=Absent 8. Sensory: 0=Normal; no sensory loss 9. Best Language: 3=Mute, global aphasia; no usable speech or auditory comprehension 10. Dysarthria: 2=Severe; patient speech is so slurred as to be unintelligible in the absence of or our of proportion to any dysphagia, or is mute/anarthric 11. Extinction and Inattention: 0=No abnormality 12. Distal motor function: 0=Normal Total: 17 ANCILLARY Last 24hrs Recent Results (from the past 24 hour(s)) Sodium Collection Time: 02/09/23 9:38 AM Result Value Ref Range SODIUM 149 (H) 135 - 145 mmol/L Phosphorus Collection Time: 02/09/23 9:38 AM Result Value Ref Range PHOSPHORUS 3.5 2.5 - 4.5 mg/dL Basic metabolic panel Collection Time: 02/09/23 9:38 AM Result Value Ref Range SODIUM 148 (H) 135 - 145 mmol/L POTASSIUM 3.6 3.5 - 5.1 mmol/L CHLORIDE 116 (H) 98 - 107 mmol/L CARBON DIOXIDE 26 22 - 30 mmol/L UREA NITROGEN 22 (H) 9 - 20 mg/dL CREATININE 0.93 0.66 - 1.25 mg/dL GLUCOSE 109 (H) 70 - 100 mg/dL CALCIUM 8.3 (L) 8.4 - 10.4 mg/dL ANION GAP 7 3 - 13 mmol/L eGFR 90.0 >60.0 mL/min/1.73m*2 Transesophageal echocardiogram (CESARIO) with contrast and 3D PRN Collection Time: 02/09/23 12:02 PM Result Value Ref Range Aortic Sinus Valsalva 3.1 cm Aortic Sinus Valsalva Index 1.71 cm/m2 Ascending Aorta 3.3 cm Ascending Aorta Index 1.82 cm/m2 Sinotubular Junction 2.4 cm Sodium Collection Time: 02/09/23 8:28 PM Result Value Ref Range SODIUM 150 (H) 135 - 145 mmol/L CBC Collection Time: 02/10/23 12:36 AM Result Value Ref Range Auto WBC 8.3 3.6 - 10.7 10*3/uL RBC 5.07 4.40 - 5.90 10*6/uL Hemoglobin 15.2 13.0 - 18.0 g/dL Hematocrit 45.2 40.0 - 52.0 % MCV 89.3 80.0 - 98.0 fL MCH 30.0 26.0 - 34.0 pg MCHC 33.6 32.0 - 36.0 % RDW 14.6 (H) 11.5 - 14.5 % Platelets 249 140 - 440 10*3/uL MPV 9.1 7.4 - 12.4 fL Comprehensive metabolic panel Collection Time: 02/10/23 12:36 AM Result Value Ref Range SODIUM 151 (H) 135 - 145 mmol/L POTASSIUM 3.3 (L) 3.5 - 5.1 mmol/L CHLORIDE 116 (H) 98 - 107 mmol/L CARBON DIOXIDE 28 22 - 30 mmol/L ANION GAP 7 3 - 13 mmol/L UREA NITROGEN 31 (H) 9 - 20 mg/dL CREATININE 1.00 0.66 - 1.25 mg/dL GLUCOSE 110 (H) 70 - 100 mg/dL CALCIUM 8.5 8.4 - 10.4 mg/dL AST (SGOT) 33 15 - 46 U/L ALT 19 0 - 49 U/L ALKALINE PHOSPHATASE 69 38 - 126 U/L ALBUMIN 3.4 (L) 3.5 - 5.0 g/dL BILIRUBIN, TOTAL 1.1 0.2 - 1.3 mg/dL TOTAL PROTEIN 6.1 (L) 6.3 - 8.2 g/dL eGFR 82.5 >60.0 mL/min/1.73m*2 Magnesium Collection Time: 02/10/23 12:36 AM Result Value Ref Range MAGNESIUM 2.4 (H) 1.6 - 2.3 mg/dL Radiology: EKG 02/05/23:IMPRESSION: Sinus rhythm Borderline prolonged NH interval Nonspecific intraventricular conduction delay Probable inferior infarct, old Anterior ST depressions Nonspecific T abnormalities, lateral leads CTH 02/05/23:IMPRESSION: Large left MCA territory infarct with hyperdense left MCA. Sulcal effacement and mild mass effect on the left lateral ventricles. ASPECT SCORE= 0. 1 mm rightward midline shift measured at the subtle signal. No herniation. Subtle hyperdensity in the left parietal convexity could represent subtle subarachnoid hemorrhage, cortical petechial hemorrhage or apposition of luna matter. CTA head & neck 02/05/23: IMPRESSION: Perfusion CT demonstrates large perfusion abnormality consistent with large left MCA territory infarct. CTA with left M1 occlusion. Nonenhancement of the left intracranial and intracranial ICA is nonspecific and could be due to significant back pressure resulting in nonenhancement versus occlusion which could appear similar. The left TONI is patent. Moderate to severe focal stenosis of the right COMMERCIAL LOAN SPECIALIST and mild to moderate focal stenosis of the left COMMERCIAL LOAN SPECIALIST at the P1-P2 junctions as discussed. Cervical spondylosis. Approximately 10% stenosis of the right cervical ICA by NASCET criteria. NASCET criteria not applicable for the left ICA. Nonspecific frothy secretions in the right maxillary sinus which can be seen with acute sinusitis if in the appropriate clinical setting. CTH 02/06/23:IMPRESSION: Unchanged nonhemorrhagic left MCA territory infarct with stable mass effect. CTH 02/07/23: IMPRESSION: Redemonstrated subacute large left MCA territory infarct. No interval hemorrhagic conversion. Interval worsening of mass effect with increased effacement of the left lateral ventricle, 7 mm rightward midline shift measured at the septum pellucidum, mass effect on the left vertebral peduncle and partial effacement of the ambient cisterns ECHO 02/07/23:Left Ventricle: Left ventricle size is normal. Moderate basal septal thickening. Normal left ventricular systolic function. EF by 2D Simpsons Biplane is 58%. Normal wall motion. Diastolic dysfunction present with normal LVEF. Right Ventricle: Not well visualized. Right ventricle size is normal. Normal systolic function. Mitral Valve: Mild (1+) regurgitation. -mildly increased L atrium CESARIO 02/09/23: Left Atrium: Left atrium is moderately dilated. Left atrial appendage thrombus noted. It is large and fills most of the appendage. It is ~35x 15 mm in one plane. Can be seen throughout all imaging planes. There is protruding mobile portion of the thrombus into the left atrium which measures in length x width 10 mmx 4 mm. Left Ventricle: Left ventricle size is normal. Mildly increased wall thickness. Normal left ventricular systolic function. The EF by visual approximation is 60%. Normal wall motion. Interatrial Septum: No interatrial shunt visualized on color Doppler. Agitated saline study was negative. No PFO present. Aorta: Normal sized annulus and ascending aorta. There is mild atherosclerosis present in the aortic arch. There is mild atherosclerosis in the descending aorta. No significant valvular abnormalities. ASSESSMENT / PLAN/RECOMMENDATIONS: Left MCA ischemic stroke- with cytotoxic cerebral edema- brain compression ETIOLOGY:EMBOLIC from large left atrial thrombus R hemiparesis Global aphasia Facial droop CAD HPL Hx of WA Hx of CABG Hx of 3rd degree AV block PLAN -MRI pending to check for hemorrhagic transformation if any prior to placing patient on anticoagulation [facility] 02-25-2023 Hospital course Narrative Images from the original note were not included. Hospitalist Physician Discharge Summary No follow-up provider specified. Activity level: As tolerated Dispo: SNF Condition on discharge: Stable Patient ID: Catina Land [id number] 67 y.o. 1955 Admit date: 02/05/2023 Discharge date and time: 02/25/2023 11:42 AM Admission Diagnoses: Principal Problem: Acute ischemic stroke (HCC) Active Problems: Arterial ischemic stroke, MCA (middle cerebral artery), left, acute (HCC) Brain compression (CMS/HCC) (HCC) Cerebral edema (CMS/HCC) (HCC) Troponin level elevated Cognitive impairment Debility Encounter for assessment of decision-making capacity Discharge Diagnoses: Principal Problem: Acute ischemic stroke (HCC) Active Problems: Arterial ischemic stroke, MCA (middle cerebral artery), left, acute (HCC) Brain compression (CMS/HCC) (HCC) Cerebral edema (CMS/HCC) (HCC) Troponin level elevated Cognitive impairment Debility Encounter for assessment of decision-making capacity Consults: IP CONSULT TO CARDIOLOGY IP CONSULT TO CASE MANAGEMENT IP CONSULT TO NEUROCRITICAL CARE IP CONSULT TO PALLIATIVE CARE IP CONSULT TO DIETITIAN IP CONSULT TO DIETITIAN IP CONSULT TO SOCIAL WORK IP CONSULT TO GENERAL SURGERY IP CONSULT TO GERIATRICS Hospital Course: Patient Catina Land is a 67 y.o. presented with Acute ischemic stroke (HCC) [I63.9] Patient is 67 YO male W/PMH of CAD, WA, (s/p CABG & stenting), and HLD. Patient presented to [facility] ED on 02/05/23 after being found down on floor of bathroom covered in vomit by EMS. Work-up on presentation including CT imaging showed L MCA infarct. Out of window for TNK, not amenable to thrombectomy d/t large established core infarct and later developed hemorrhagic conversion resulting in cerebral edema. Stroke work-up was also significant for left atrial appendage thrombus that was not able to be started on anticoagulation right away in the light of hemorrhagic conversion. Eliquis was ordered to start on March 17 and aspirin to be discontinued at that time. He also suffered NSTEMI, being followed by cardiology and was initially admitted to ICU, opted for medical management. During this hospitalization, he had PEG tube placed for nutrition secondary to dysphagia in the light of the above. Patient course remained stable after transfer out of the ICU and he will be discharged to SNF in a stable condition. Discharge Exam: General Appearance: alert and oriented to person, place and time and in no acute distress Skin: warm and dry Head: normocephalic and atraumatic Eyes: pupils equal, round, and reactive to light, extraocular eye movements intact, conjunctivae normal Neck: neck supple and non tender without mass Pulmonary/Chest: clear to auscultation bilaterally- no wheezes, rales or rhonchi, normal air movement, no respiratory distress Cardiovascular: normal rate, normal S1 and S2 and no carotid bruits Abdomen: soft, non-tender, non-distended, normal bowel sounds, no masses or organomegaly Extremities: no cyanosis, no clubbing and no edema Neurologic: no cranial nerve deficit and speech normal I/O last 3 completed shifts: In: - (0 mL/kg) Out: 1750 (25.3 mL/kg) [Urine:1750 (0.7 mL/kg/hr)] Weight: 69.3 kg No intake/output data recorded. LABS: Recent Labs 02/23/23 0135 02/24/23 0043 02/25/23 0117 NA 140 141 141 K 4.1 4.1 3.8 CL 103 100 100 CO2 34* 35* 37* BUN 43* 52* 62* CREATININE 0.93 1.09 1.09 GLUCOSE 150* 125* 133* CALCIUM 8.9 9.4 9.2 Recent Labs 02/23/23 0135 02/24/23 0043 02/25/23 0117 WBC 7.9 8.1 7.7 RBC 4.56 4.93 4.76 HGB 14.1 14.7 14.6 HCT 41.5 44.0 43.0 MCV 91.0 89.2 90.4 MCH 30.8 29.7 30.7 MCHC 33.9 33.3 33.9 RDW 14.6* 14.7* 14.6* PLT 274 284 263 MPV 9.8 10.4 10.7 No results for input(s): POCGLU in the last 72 hours. Imaging: XR chest 2 views Result Date: 02/23/2023 Patient Name: CATINA LAND : 1955 Exam Date/Time: 02/23/2023 16:24 Procedure: XR CHEST 2 VIEWS Ordering Provider: TRAVIS OLIVIA Reason For Exam: Hypoxia PA AND LATERAL CHEST CLINICAL INDICATION: Hypoxia TECHNIQUE: PA and Lateral chest COMPARISON: 02/21/2023 FINDINGS AND IMPRESSION: SUPPORT DEVICES: None OSSEOUS STRUCTURES: Unremarkable. HEART AND MEDIASTINUM: The cardiomediastinal silhouette appears unchanged from the prior exam, including prior median sternotomy. LUNGS AND PLEURA: The lungs are clear. No sizable pleural effusion. Report Dictated on Electronically Signed By: Lew Fernandez Electronically Signed Date/Time: 02/23/2023 6:43 PM EDT Patient Instructions: Medication List START taking these medications acetaminophen 325 MG tablet Commonly known as: Tylenol Take 2 tablets (650 mg) by mouth every 6 hours as needed for mild pain (1-3) or fever (For temp greater than 100.4 F (38 C)) for up to 10 days. amLODIPine 10 MG tablet Commonly known as: Norvasc Take 1 tablet (10 mg) by mouth daily. Do not start before February 21, 2023. aspirin 81 MG chewable tablet 1 tablet (81 mg) by Per G Tube route daily for 24 days. Do not start before February 21, 2023. atorvastatin 40 MG tablet Commonly known as: Lipitor 1 tablet (40 mg) by Per G Tube route daily. carvedilol 25 MG tablet Commonly known as: Coreg 1 tablet (25 mg) by Per G Tube route in the morning and 1 tablet (25 mg) in the evening. Take with meals. melatonin 5 MG tablet Take 1 tablet (5 mg) by mouth Nightly as needed (sleep). ASK your doctor about these medications nystatin [id number] UNIT/ML suspension Commonly known as: Mycostatin Swish and spit 5 mL (500,000 Units) 3 times daily for 6 days. Ask about: Should I take this medication? Where to Get Your Medications Information about where to get these medications is not yet available Ask your nurse or doctor about these medications acetaminophen 325 MG tablet amLODIPine 10 MG tablet aspirin 81 MG chewable tablet atorvastatin 40 MG tablet carvedilol 25 MG tablet melatonin 5 MG tablet nystatin [id number] UNIT/ML suspension Note that more than 30 minutes was spent in preparing discharge papers, discussing discharge with patient, medication review, etc. Signed: documented in this encounter [facility] 02-23-2023 Consult note Associated Order (s): IP CONSULT TO DIETITIAN; IP CONSULT TO DIETITIAN Nutrition Assessment Type and Reason for Visit: Reassess Nutrition Recommendations/Plan: Continue with current TF and rate. Monitor TF tolerance. Monitor nutritional status. Malnutrition Assessment: Malnutrition Status: At risk for malnutrition (Comment) Context: Acute Illness Findings of the 6 clinical characteristics of malnutrition: Energy Intake: Mild decrease in energy intake (Comment) (pt receiving TF at goal rate since 02/07 w/ a few brief interruptions.) Weight Loss: Unable to assess (10# wt change since admission wt, ? UBW. unable to obtain hx and none documented in Epic) Body Fat Loss: No significant body fat loss Muscle Mass Loss: No significant muscle mass loss Fluid Accumulation: No significant fluid accumulation Extremities Senior Executive Compensation Analyst Strength: Not Performed Nutrition Assessment: The pt is a 67 y/o male with PMH that includes CAD, [place], (s/p CABG & stenting), and HLD who presents on 02/05/23 after being found down on floor of bathroom covered in vomit by EMS. Family had called for a well check after being unable to contact the patient. Last known well time was sometime Tuesday02/03/[address] imaging showed L MCA infarct. Out of window for TNK, not amenable to thrombectomy d/t large established core infarct. He was admitted to T2 ICU. Cardiology following d/t NSTEMI. Dobhoff initially placed for nutrition d/t dysphagia - ongoing speech therapy. General surgery was consulted as pt was unable to handle secretions. Pt is s/p PEG 02/16/23. Jevity 1.5 is running @ 50 mls/hour. Estimated Daily Nutrient Needs: Energy Requirements Based On: Kcal/kg Weight Used for Energy Requirements: Current Weight for Energy Calculation (kg): 74.3 kg Total Energy Requirements (kcals/day): 6006-2828 (20-25 kcal/kg) Weight Used for Protein Requirements: Current Weight in Kg Used for Protein Requirements: 74.3 kg Estimated Total Protein (g/day): 74 (1.0 g/kg) Estimated Daily Total Fluid (ml/day): per MD Nutrition Related Findings: +BS, +BM 02/23/23, +PEG, RUE mild edema, BLE non-pitting edema, Kar 15, Right sided hemiplegia. Wound Type: (blister/abrasion right hip) Net IO Since Admission: 1,252.66 mL [02/23/23 1535] Current Nutrition Therapies: Enteral Nutrition Feeding Route: PEG EN Formula: Jevity 1.5 Kota EN Schedule: Continuous EN Feeding Regimen: Jevity 1.5 @ 10 mls/hour, goal of 50 mls/hour Additives/Modulars: None Water Flushes: 50 mls free water every 4 hours Current EN & Flush Order Provides: Jevity 1.5 @ 50 mls/hour providing 1800 kcals, 76g protein, 912 mls free water = 24 kcals/kg + 1.0g protein/kg CBW (73.9kgs). Goal EN & Flush Order Provides: same Anthropometric Measures: Height: 165.1 cm (5' 5") Current Body Weight: 69.9 kg (154 lb) (w/ multiple blankets) Weight Source: Bed Scale Admission Body Weight: 73.9 kg (163 lb) (/) Usual Body Weight: (Weight history in limited in Epic. 148# on 04/13/2017) Dixon Body Weight (lbs) (Calculated): 136 lbs Dixon Body Weight (Kg) (Calculated): 62 kg % Dixon Body Weight (Calculated): 120.4 % BMI (kg/m2) (Calculated): 25.6 Weight Adjustment For: No Adjustment BMI Categories: Overweight (BMI 25.0-29.9) Wt Readings from Last 10 Encounters: 02/12/23 69.3 kg (152 lb 12.5 oz) LABS: Recent Labs 02/21/23 0320 02/22/23 0428 02/23/23 0135 NA 141 140 140 K 4.5 4.1 4.1 CL 104 104 103 CO2 34* 32* 34* BUN 39* 43* 43* CREATININE 1.12 1.00 0.93 GLUCOSE 134* 137* 150* CALCIUM 8.7 8.8 8.9 BUN - elevated. BG - elevated. Recent Labs 02/21/23 0320 02/22/23 0428 02/23/23 0135 AST 57* 51* 51* ALT 65* 61* 65* BILITOT 0.7 0.7 0.8 ALKPHOS 91 93 95 Nutrition Diagnosis: Swallowing difficulty related to cognitive or neurological impairment as evidenced by swallow study results Nutrition Interventions: Nutrition Education/Counseling: No recommendation at this time Coordination of Nutrition Care: Continue to monitor while inpatient Goals: Previous Goal Met: Progressing toward Goal(s) Goals: Tolerate nutrition support at goal rate, by next RD assessment Nutrition Monitoring and Evaluation: Behavioral-Environmental Outcomes: None Identified Food/Nutrient Intake Outcomes: Enteral Nutrition Intake/Tolerance Physical Signs/Symptoms Outcomes: Biochemical Data, Chewing or Swallowing, GI Status, Fluid Status or Edema, Nutrition Focused Physical Findings, Skin, Weight Discharge Planning: Too soon to determine Catrachita Cordova RD,LD,[facility] Contact: *[phone] or Dovetail Chat Associated Order(s): IP CONSULT TO GERIATRICS [facility] Geriatric Medicine Inpatient Consult Service Admission Date: 02/05/2023 Admission Status: INPATIENT Chief Complaint: stroke Reason for Appointment Geriatrics consulted for "expert evaluation, trying to apply for guardianship" Assessment & Plan Principal Problem: Acute ischemic stroke (HCC) Active Problems: Arterial ischemic stroke, MCA (middle cerebral artery), left, acute (HCC) Brain compression (CMS/HCC) (HCC) Cerebral edema (CMS/HCC) (HCC) Troponin level elevated Cognitive Impairment, Encounter for Decision Making Capacity -secondary to recent stroke. Limited communication abilities right now. Not able to convey an understanding of his medical situation. He does not have capacity to make healthcare decisions or financial decisions at this time -Unclear how well he will recover cognitively from the stroke - Statement of Expert Evaluation written recommending guardianship. This will be placed on patient's paper chart. - Family needs guardianship to pay his bills. -Unclear if the guardianship will be able to be terminated one day if he recovers enough. -Continue Speech Therapy Debility -secondary to recent stroke. Plan is for inpatient rehab -Physical Therapy and Occupational Therapy During this encounter, I spent over 51% of the total encounter time of 65 minutes counseling or coordinating care and provided discussion regarding work-up, test results, treatment options and associated risks andbenefits for the problems detailed above, prognosis, expected disease course, and rehabilitation care needs. Subjective: HPI 67 y.o. year-old male with past medical history of cad s/p CABG, hyperlipidemia, third degree AV block who presented to the hospital on 02/05 for altered mental status, right sided hemiplegia. He was found to have a large left MCA stroke. I reviewed patient's chart, including H&P and multiple progress notes. The following is a summary. -He was out of the window for TNK and not a candidate for thrombectomy. -His troponin was elevated to 7. Treated for NSTEMI -treated for presumed aspiration pneumonia -at time of H and P, he had significant altered mental status. Intermiteently following commands with the LUE. Left gaze deviation. His sisters - Laverne and Leighann - are NOK and have been acting as his decision makers. - a Dobhoff was placed for nutrition due to ongoing dysphagia. Later, a G tube was placed -also found to have a large AA thrombus -his mental status/encephalopathy have fluctuated during hospitalization but he has amy noted to have improved mentation the last several days. -family pursuing a guardianship for patient so that they can pay patient's bills. Attempted to speak with patient in his room. He is minimally verbal at this time. Able to say a couple of words here or there but not enough to give answers to questions. Attempted to use "thumbs up or thumbs down" for the ROS questions, but he shrugged and answered "thumbs up" for each question. It did not seem like reliable history. He was unable to tell me where we were (I asked if we were in a school and he gave me a thumbs up) or what has been going on. Conversation with Family. Sister - Leighann -prior to his stroke he was living alone independently. He could be grumpy at times and looked fatigued whenever leighann visited. However, he didn't seem to have significant cognitive/memory issues. -he took care of his parents for years prior to their deaths. -he has two dogs and a cat Since the stroke, he is occasionally able to say to word or two to his family. Rarely can say a full sentence. It is unclear how much he understands right now. He was doing better with the "thumbs up and thumbs down" answering the other day. He has been able to suction his oral secretions on his own. One day, he was able to use the TV remote to answer questions. Not on File Current Facility-Administered Medications: acetaminophen (Tylenol) tablet 650 mg, 650 mg, Oral, q6h PRN, 650 mg at 02/13/23 2328 OR acetaminophen (Tylenol) suppository 650 mg, 650 mg, Rectal, q6h PRN, Sarah Ricoodin-Estephanie, SOCCER REFEREE - ETHYLBENZENE CRACKING SUPERVISOR amLODIPine (Norvasc) tablet 10 mg, 10 mg, Oral, Daily, Sarah Ricoodin-Estephanie, SOCCER REFEREE - ETHYLBENZENE CRACKING SUPERVISOR, 10 mg at 02/19/23 0831 [Held by provider] aspirin chewable tablet 81 mg, 81 mg, Per G Tube, Daily, Sarah Ricoodin-Estephanie, SOCCER REFEREE - ETHYLBENZENE CRACKING SUPERVISOR, 81 mg at 02/12/23 0845 atorvastatin (Lipitor) tablet 40 mg, 40 mg, Per G Tube, Daily, Sarah Ricoodin-Estephanie, SOCCER REFEREE - ETHYLBENZENE CRACKING SUPERVISOR, 40 mg at 02/18/23 2135 bisacodyl (Dulcolax) suppository 10 mg, 10 mg, Rectal, Daily PRN, Sarah Ricoodin-Estephanie, SOCCER REFEREE - ETHYLBENZENE CRACKING SUPERVISOR bisacodyl (Dulcolax) suppository 10 mg, 10 mg, Rectal, Daily, Sarah Ricoodin-Estephanie, SOCCER REFEREE - ETHYLBENZENE CRACKING SUPERVISOR, 10 mg at 02/13/23 0909 carvedilol (Coreg) tablet 25 mg, 25 mg, Per G Tube, BID WC, Sarah Ricoodin-Estephanie, SOCCER REFEREE - ETHYLBENZENE CRACKING SUPERVISOR, 25 mg at 02/19/23 0831 heparin injection 5,000 Units, 5,000 Units, SubCUTAneous, 3 times per day, Sarah Ricoodin-Estephanie, SOCCER REFEREE - ETHYLBENZENE CRACKING SUPERVISOR, 5,000 Units at 02/19/23 1312 hydrALAZINE (Apresoline) injection 20 mg, 20 mg, IntraVENous, q4h PRN, Sarah Ricoodin-Estephanie, SOCCER REFEREE - ETHYLBENZENE CRACKING SUPERVISOR, 20 mg at 02/16/23 0705 iopamidol (Isovue-300) 61 % injection 25 mL, 25 mL, Other, Once PRN, Enzo Landa MD ipratropium-albuterol (Duo-Neb) 0.5-2.5 mg/3 mL nebulizer solution 3 mL, 3 mL, Nebulization, TID PRN, Sarah Lehman-Estephanie, SOCCER REFEREE - ETHYLBENZENE CRACKING SUPERVISOR, 3 mL at 02/07/232112 labetalol (Normodyne,Trandate) injection 20 mg, 20 mg, IntraVENous, q4h PRN, Sarah Ricoodin-Estephanie, SOCCER REFEREE - ETHYLBENZENE CRACKING SUPERVISOR, 20 mg at 02/11/23 0511 lidocaine (Uro-Jet) 2 % gel, , Topical, Once, Sarah Lehman-Estephanie, SOCCER REFEREE - ETHYLBENZENE CRACKING SUPERVISOR melatonin tablet 5 mg, 5 mg, Oral, Nightly PRN, Sarah Ricoodin-Estephanie, SOCCER REFEREE - ETHYLBENZENE CRACKING SUPERVISOR, 5 mg at 02/14/232108 nystatin (Mycostatin) 647336 UNIT/ML suspension 500,000 Units, 5 mL, Swish & Spit, TID, Sarah Lehman-Estephanie, SOCCER REFEREE - ETHYLBENZENE CRACKING SUPERVISOR, 500,000 Units at 02/19/23 1312 ondansetron ODT (Zofran-ODT) disintegrating tablet 4 mg, 4 mg, Oral, q8h PRN OR ondansetron (Zofran) injection 4 mg, 4 mg, IntraVENous, q6h PRN, Sarah Lehman-Estephanie, SOCCER REFEREE - ETHYLBENZENE CRACKING SUPERVISOR pantoprazole (ProtoNix) EC tablet 40 mg, 40 mg, Oral, Nightly, 40 mg at 02/18/235 OR pantoprazole (ProtoNix) injection 40 mg, 40 mg, IntraVENous, Nightly, Sarah Ricoodin-Estephanie, SOCCER REFEREE - ETHYLBENZENE CRACKING SUPERVISOR, 40 mg at 02/17/232110 polyethylene glycol (PEG) 3350 (Miralax) packet 17 g, 17 g, Oral, BID, Sarah Lehman-Estephanie, SOCCER REFEREE - ETHYLBENZENE CRACKING SUPERVISOR, 17 g at 02/17/23 0903 polyvinyl alcohol (Liquifilm Tears) 1.4 % ophthalmic solution, , Both Eyes, PRN, Sarah Lehman-Estephanie, SOCCER REFEREE - ETHYLBENZENE CRACKING SUPERVISOR, Given at 02/13/23 1337 senna-docusate sodium (Senokot-S) 8.6-50 MG tablet 2 tablet, 2 tablet, Oral, BID, Sarah Berrodin-Estephanie, SOCCER REFEREE - ETHYLBENZENE CRACKING SUPERVISOR, 2 tablet at 02/17/23 0903 sodium chloride 0.9 % infusion, 5-250 mL/hr, IntraVENous, PRN, Sarah Berrodin-Estephanie, SOCCER REFEREE - ETHYLBENZENE CRACKING SUPERVISOR, Stopped at 02/16/23 1534 sodium chloride 0.9% (NS) flush 5-40 mL, 5-40 mL, IntraVENous, q12h, Sarah Berrodin-Estephanie, SOCCER REFEREE - ETHYLBENZENE CRACKING SUPERVISOR, 10 mL at 02/19/23 1134 sodium chloride 0.9% (NS) flush 5-40 mL, 5-40 mL, IntraVENous, PRN, Sarah Berrodin-Estephanie, SOCCER REFEREE - ETHYLBENZENE CRACKING SUPERVISOR Past Medical History: Diagnosis Date CAD (coronary artery disease) History of coronary artery bypass graft x 2 04/2014 Hyperlipidemia [place], old 03/28/2014 STEMI-inferior Pneumonia Presence of stent in coronary artery 03/2014 Third degree AV block (CMS/HCC) (HCC) 03/28/2014 during inferior STEMI Past Surgical History: Procedure Laterality Date CORONARY ANGIOPLASTY 03/28/2014 DANDY to prox RCA x 2 CORONARY ARTERY BYPASS GRAFT 04/2014 SENIOR-LAD, SVG-PD/RCA Social History Tobacco Use Smoking status: Every Day Packs/day: 1.00 Types: Cigarettes Start date: 03/17/1975 Smokeless tobacco: Not on file Substance Use Topics Alcohol use: Yes Social History Social History Narrative Not on file Family History Family History Problem Relation Name Age of Onset Coronary artery disease Mother Cancer Mother Cancer Father Family Status Relation Name Status Mother Father Review of Systems Unable to perform ROS: Mental status change Functional Status Prior to Admission: (I: Independent, A: Assisted, D: Dependent) ADLs I A D Notes Bathing [x] [] [] Dressing [x] [] [] Toileting [x] [] [] Transfers [x] [] [] Feeding [x] [] [] Ambulation [x] [] [] IADLs I A D Telephone [x] [] [] Transportation [x] [] [] Shopping [x] [] [] Meal prep [x] [] [] Housework [x] [] [] Medications [x] [] [] Finances [x] [] [] Objective: BP 112/58 (BP Location: Left arm, Patient Position: Lying) Pulse 67 Temp 36.8 C (98.2 F) (Temporal) Resp 18 Ht 5' 5" (1.651 m) Wt 152 lb 12.5 oz (69.3 kg) SpO2 96% BMI 25.42 kg/m Intake/Output Summary (Last 24 hours) at 02/19/2023 1348 Last data filed at 02/19/2023 0832 Gross per 24 hour Intake 1344 ml Output 1050 ml Net 294 ml Wt Readings from Last 3 Encounters: 02/12/23 152 lb 12.5 oz (69.3 kg) Physical Exam Constitutional: General: He is not in acute distress. HENT: Head: Normocephalic and atraumatic. Right Ear: No decreased hearing noted. Left Ear: No decreased hearing noted. Mouth/Throat: Mouth: Mucous membranes are dry. Cardiovascular: Rate and Rhythm: Normal rate and regular rhythm. Heart sounds: No murmur heard. No friction rub. No gallop. Pulmonary: Effort: Pulmonary effort is normal. Breath sounds: No wheezing, rhonchi or rales. Comments: Congested sounding cough at times Abdominal: General: Bowel sounds are normal. Palpations: Abdomen is soft. Tenderness: There is no abdominal tenderness. There is no guarding or rebound. Musculoskeletal: Right lower leg: No edema. Left lower leg: No edema. Neurological: Mental Status: He is alert. He is disoriented. Cranial Nerves: Facial asymmetry (right side facial droop) present. Comments: Right hemiparesis Minimal speech - couple words here and there Psychiatric: Mood and Affect: Affect is flat. Cognition and Memory: Cognition is impaired. Memory is impaired. Mini-Mental Status Exam: unable due to significant communication limitations Labs and Imaging: Recent Results (from the past 24 hour(s)) CBC Collection Time: 02/19/23 4:53 AM Result Value Ref Range Auto WBC 8.9 3.6 - 10.7 10*3/uL RBC 4.66 4.40 - 5.90 10*6/uL Hemoglobin 13.9 13.0 - 18.0 g/dL Hematocrit 42.0 40.0 - 52.0 % MCV 90.3 80.0 - 98.0 fL MCH 29.8 26.0 - 34.0 pg MCHC 33.1 32.0 - 36.0 % RDW 14.2 11.5 - 14.5 % Platelets 319 140 - 440 10*3/uL MPV 10.3 7.4 - 12.4 fL Comprehensive metabolic panel Collection Time: 02/19/23 4:53 AM Result Value Ref Range SODIUM 144 135 - 145 mmol/L POTASSIUM 3.9 3.5 - 5.1 mmol/L CHLORIDE 107 98 - 107 mmol/L CARBON DIOXIDE 31 (H) 22 - 30 mmol/L ANION GAP 5 3 - 13 mmol/L UREA NITROGEN 42 (H) 9 - 20 mg/dL CREATININE 0.94 0.66 - 1.25 mg/dL GLUCOSE 107 (H) 70 - 100 mg/dL CALCIUM 8.5 8.4 - 10.4 mg/dL AST (SGOT) 45 15 - 46 U/L ALT 61 (H) 0 - 49 U/L ALKALINE PHOSPHATASE 92 38 - 126 U/L ALBUMIN 3.3 (L) 3.5 - 5.0 g/dL BILIRUBIN, TOTAL 0.6 0.2 - 1.3 mg/dL TOTAL PROTEIN 6.1 (L) 6.3 - 8.2 g/dL eGFR 88.9 >60.0 mL/min/1.73m*2 No results found for: TSH No components found for: B12 No results found for: VITD25 Reviewed: active problem list, medication list, social history, notes from last encounter, lab results Follow-up: will follow with you Kim Mabry MD 02/19/23 1:48 PM Associated Order(s): IP CONSULT TO GENERAL SURGERY Images from the original note were not included. Department of General Surgery Surgical Service - ACS Resident Consult Note 02/10/2023 CHIEF COMPLAINT: Chief Complaint Patient presents with Altered Mental Status Patient arrives from squad from home, patient last seen by neighbor , family went to go check on patient and could not get into the home, patient was found on bathroom floor surrounded by vomit and not able to have conversation. Patient initial NIH is 23 in treatment room. Reason for Consult: HISTORY OF PRESENT ILLNESS: Catina Land is a 67 y.o. male with history of CAD/WA (3 degree AVB) s/p PCI followed by CABG, and pneumonia who presented on 02/05 after being found down on the bathroon floor with AMS, left eye deviation, and right sided hemiplegia. ER work-up was notable for hypertension with systolic blood pressure of 193 as well as imaging that was consistent with a large left MCA infarct. He was out of the window for thrombolytics and it was not amenable to thrombectomy due to the size of the infarct. Further he had a significantly elevated troponin and a CK of 1573. EKG had shown inverted T waves. He was admitted to T2 ICU with cardology and NCC consult patient. During his hospital course he was seen by cardiology who found that he had a an NSTEMI and appreciated with medical management. He had been treated multiple times with hypertonic saline boluses and infusions. Continues to be hypertensive with difficulty to control blood pressure. Apparently he had been intermittently following commands with his left upper extremity and left lower extremity. However, CT of the head showed increased cytotoxic edema and compression on 02/08. TTE was performed in the morning that showed a very large left atrial thrombus per cardiology. Neurology is following. Per a.m. note error awaiting MRI to check for hemorrhagic transformation prior to placement of patient on anticoagulation however he was cleared for the medical floor. Currently on DVT prophylaxis and aspirin 81. Per documentation he had pulled out his Dobbhoff tube. He had been seen by SUPERVISOR DEHYDROGENATION 02/07 who had recommended dysphagia pur ed diet with thin liquids. Does not appear that he has been seen by this team dysphagia. He was seen by Palliative care on 02/08 and sign off as patient was improving and were present for family support. Per documentation he has been afebrile hemodynamically stable with intermittent episodes of hypertension. Labs are notable for some electrolyte abnormalities; however, no leukocytosis on labs. He is on unasyn for possible aspiration pneumonia. Discussed with MICU-CHILDREN'S COUNSELOR, patient has been unable to have SUPERVISOR DEHYDROGENATION evaluation due to patient's decreased LOC, but he was able to remove NGT, once was replaced. Past Medical History: Diagnosis Date CAD (coronary artery disease) History of coronary artery bypass graft x 2 04/2014 Hyperlipidemia [place], old 03/28/2014 STEMI-inferior Pneumonia Presence of stent in coronary artery 03/2014 Third degree AV block (CMS/HCC) (HCC) 03/28/2014 during inferior STEMI Past Surgical History: Procedure Laterality Date CORONARY ANGIOPLASTY 03/28/2014 DANDY to prox RCA x 2 CORONARY ARTERY BYPASS GRAFT 04/2014 SENIOR-LAD, SVG-PD/RCA Medications Prior to Admission: No current facility-administered medications on file prior to encounter. No current outpatient medications on file prior to encounter. Allergies: Patient has no allergy information on record. Social History Socioeconomic History Marital status: Single Tobacco Use Smoking status: Every Day Packs/day: 1.00 Types: Cigarettes Start date: 03/17/1975 Substance and Sexual Activity Alcohol use: Yes Drug use: No Family History Problem Relation Name Age of Onset Coronary artery disease Mother Cancer Mother Cancer Father REVIEW OF SYSTEMS: Review of Systems Unable to perform ROS: Mental status change PHYSICAL EXAM: Vitals: 02/10/23 1530 BP: (!) 147/80 Pulse: 81 Resp: 12 Temp: SpO2: I/O last 3 completed shifts: In: 2944 (39.8 mL/kg) [I.V.:1342 (18.2 mL/kg); NG/GT:1602] Out: 3040 (41.1 mL/kg) [Urine:3040 (1.1 mL/kg/hr)] Weight: 73.9 kg CONSTITUTIONAL: awake, alert, cooperative, no apparent distress NECK: Supple, symmetrical, trachea midline, no adenopathy LUNGS: No increased work of breathing, good air exchange CARDIOVASCULAR: Regular rate and rhythm ABDOMEN: Soft, non-distended, non-tender, no rebound, no guarding, no masses palpated, incisions noted from prior cardiac surgery, there are no abdominal surgical incisions CHEST: no masses palpated, no axillary or supraclavicular adenopathy GENITAL/URINARY: Not examined MUSCULOSKELETAL: There is no redness, warmth, or swelling of the joints. Right sided hemiparesis NEUROLOGIC: Awake, alert, oriented to name, place and time. SKIN: normal skin color, texture, no redness, warmth, or swelling. DATA: CBC: Lab Results Component Value Date WBC 8.3 02/10/2023 RBC 5.07 02/10/2023 HGB 15.2 02/10/2023 HCT 45.2 02/10/2023 MCV 89.3 02/10/2023 MCH 30.0 02/10/2023 MCHC 33.6 02/10/2023 RDW 14.6 (H) 02/10/2023 PLT 249 02/10/2023 MPV 9.1 02/10/2023 BMP: Lab Results Component Value Date NA 148 (H) 02/10/2023 K 3.3 (L) 02/10/2023 CL 116 (H) 02/10/2023 CO2 28 02/10/2023 BUN 31 (H) 02/10/2023 CREATININE 1.00 02/10/2023 CALCIUM 8.5 02/10/2023 GLUCOSE 110 (H) 02/10/2023 Hepatic Function Panel: Lab Results Component Value Date ALKPHOS 69 02/10/2023 ALT 19 02/10/2023 AST 33 02/10/2023 PROT 6.1 (L) 02/10/2023 BILITOT 1.1 02/10/2023 PT/INR: No results found for: PROTIME, INR Troponin: No results found for: TROPONINI LIPASE: No results found for: LIPASE IMAGING: MR brain wo contrast Narrative: [facility] 1955 [id number] Exam Date/Time: 02/10/2023 14:52 Procedure: MR BRAIN WO CONTRAST Ordering Provider: EDDY JESSICA Reason For Exam: Stroke, follow up MRI BRAIN WITHOUT CONTRAST: INDICATION: Stroke follow-up. COMPARISON: CT/CTA head dated 02/07/2023 MR imaging of the brain was performed with sagittal T1 weighted, axial T2 weighted and FLAIR scans, and axial diffusion scans. There is diffuse left-sided edema involving the distribution of left MCA with mass effect, resulting in compression of the left lateral ventricle and left to right midline shift of approximately 15 mm. There is significant mass effect upon the xiomy and midbrain with mild increased T2 signal involving the xiomy Scattered T2 hyperintensities are seen involving the right cerebral hemisphere, likely reflecting chronic ischemia. A focus of increased T2 signal is seen involving the right cerebellum, likely reflecting a remote cerebellar infarct. The globes and orbital contents are grossly normal. There is ethmoid and maxillary sinusitis. Impression: Worsening cerebral edema involving the distribution of the right MCA with significant compression of the left lateral ventricle and brain stem and xiomy as well as a left to right midline shift of approximately 15 mm. No evidence of hemorrhagic transformation. CTR COMMUNICATION: The findings were discussed with BIBI EDDY on 02/10/2023 3:29 PM EDT. Report Dictated on Electronically Signed By: Gomez Welch Electronically Signed Date/Time: 02/10/2023 3:29 PM EDT XR abdomen 1 view Narrative: Patient Name: CATINA LAND : 1955 Exam Date/Time: 02/10/2023 13:04 Procedure: XR ABDOMEN 1 VIEW Ordering Provider: HARMAN LISA Reason For Exam: PROCEDURES ABDOMEN, Single View: INDICATION: NG tube placement COMPARISON: None. A single supine view of the abdomen was obtained at 1303 hours. There is moderate gaseous distention of the small bowel. There are no obvious findings to suggest pneumoperitoneum. Atherosclerotic calcifications of the aorta and iliac arteries are noted. There is no appreciable mass effect. Review of the osseous structures arthritic changes of the spine. Impression: Moderate gaseous distention of small bowel, likely reflecting ileus. Follow-up imaging recommended. Report Dictated on Electronically Signed By: Gomez Welch Electronically Signed Date/Time: 02/10/2023 2:38 PM EDT XR abdomen 1 view Narrative: Patient Name: CATINA LAND : 1955 Exam Date/Time: 02/10/2023 07:17 Procedure: XR ABDOMEN 1 VIEW Ordering Provider: GARCIA MATTHEW Reason For Exam: Check Doboff placement ABDOMEN, Single View: INDICATION: Dobbhoff placement COMPARISON: 02/09/2023 Supine images of the abdomen were obtained at 0716 hours. The bowel gas pattern is nonspecific and nonobstructive. There are no obvious findings to suggest pneumoperitoneum. The Dobbhoff tube is present with the tip overlying the left upper quadrant near the GE junction. There is no appreciable mass effect. Review of the osseous structures demonstrates arthritic changes of the spine. Impression: Nonspecific bowel gas pattern. The Dobbhoff tube overlies the left upper quadrant near the GE junction. Report Dictated on Electronically Signed By: Gomez Bookert Electronically Signed Date/Time: 02/10/2023 9:20 AM EDT ASSESSMENT AND PLAN: This is a 67 y.o. male with history of CAD/WA s/p PCI and CABG who presents with a large L MCA stoke. He is now recovering but there is concern for dysphagia and aspiration. A formal MBS was not performed and possibly unlikely due to patient participation and LOC. Called with POA (Next of Kin) Leighann Sanabria - [phone]. Discussed their concern for possible aspiration as he is not able to clear his secretions. Further, he will likely not be able to take enough calories. We discussed the possible complications of the PEG including inadvertent removal and well as bleeding from anticoagulation. However, given these risks would recommend for formal SUPERVISOR DEHYDROGENATION evaluation and operative G-tube placement. - Will need formal SUPERVISOR DEHYDROGENATION evaluation with documentation of aspiration - Will need cardiac risk stratification, if G tube would be placed would recommend lap assisted G- tube placement - would continue NGT feeds at this time - would need neurology reassessment of recent MRI findings - would not delay anticoagulation at this time, PEG placement would likely be next week. - Remainder of care per primary service - General surgery will continue to follow. Patient discussed with attending, Dr. Felix. Cody Felix MD General Surgery PGY-5 02/10/23 4:14 PM This note may have been dictated using [employer] Edition 2.6 and/or [employer] Voice Recognition Feature. The document was proofread; however, unrecognized voice recognition replenishment analyst errors may be present. Associated attestation - Shira Felix MD - 02/10/2023 6:42 PM EDT ~~~~~~~~~~~~~~~~~~~~~~~~~~~~~~~~~ ~~~~~~~~~~~~~~~~~~~~~~~~~~~~ ATTENDING ADDENDUM Patient Active Problem List Diagnosis History of coronary artery bypass graft x 2 Hyperlipidemia Presence of stent in coronary artery CAD (coronary artery disease) [place], old Acute ischemic stroke (HCC) Arterial ischemic stroke, MCA (middle cerebral artery), left, acute (HCC) Brain compression (CMS/HCC) (HCC) Cerebral edema (CMS/HCC) (HCC) Troponin level elevated I independently saw the above patient and reviewed the recent events, imaging, labs, vital signs; I performed a physical exam and ROS on the same date of service as above. My findings agree with the above note except for any details corrected below. A complete review of systems was obtained and is negative except as stated in HPI. 67 y.o. male with history of CAD/WA s/p PCI and CABG who presents with a large L MCA stoke Patient is pulling at line and devices No prior abdominal surgeries Problem list: L MCA stoke Management: #Dysphagia, poss aspiration? - follow up SUPERVISOR DEHYDROGENATION eval - Discuss with NCC recent MRI findings - If gastrostomy tube is needed, we will plan for placement early next week. Patient discussed with family at bedside. Patient is high risk for dislodging his PEG tube. Would recommend, if needed, a laparoscopic assisted Bridgette gastrostomy. Patient will need cardiac restratification and optimization. Level of Medical Decision Making: risk of morbidity from additional diagnostic testing or treatment due to G tube placement []High [x]Moderate []Low Complexity: Acute illness with systemic symptoms (MOD) Risk: Decision regarding minor surgery with identified patient or procedure risk factors (MOD) Personally Reviewed/Independently interpreted patient's: [x]Epic notes [x]Radiology studies [x]Labs []EKG []Ordering tests []Other Discussed/ With: [x]Patient/Family [x]RN []Consultants []SW/TCC []Other I spent total time of 65 minutes reviewing previous notes, test results, and face to face with Catina Land discussing the diagnosis and importance of compliance with the treatment plan as well as documenting on the day of the visit. Time was spent, Reviewing medical record including recent tests and results Ordering prescription medications/tests and procedures Communicating results to the patient/family/caregiver Counseling/educating the patient/family/caregiver Documenting clinical information the patient's electronic record Coordination of care for the patient Performing a medical appropriate exam and evaluation Shira Felix MD, FACS Division of Trauma Department of Surgery [facility] ~~~~~~~~~~~~~~~~~~~~~~~~~~~~~~~~~ ~~~~~~~~~~~~~~~~~~~~~~~~~~~~ This note may have been dictated using [employer] Edition 2.6 and/or [employer] Voice Recognition Feature. The document was proofread; however, unrecognized voice recognition replenishment analyst errors may be present. Images from the original note were not included. Palliative Care Initial Consult Chief Complaint: Catina Land is a 67 y.o. male with chief complaint of stroke. Palliative Care is actively following. Assessment/Plan Palliative Care Encounter/Goals of Care -Palliative care consulted for goals of care/support. -Noted established goals of care after discussion over the weekend with ICU/neurology. -Full code. -NOK are sisters-->at bedside this AM -Discussed medical update with them as well as Introduced the palliative care service to the patient and/or family. Discussed that we see patients with serious illnesses. Our role is to assist with pain and symptom management and to support the patient and family to promote quality of life. We at times also assist in discussions regarding goals of care and clinical decisions. -Noted that I discussed we are here for support purposes only. Noted that I understood that goals were aligning with recovery. Discussed that we would keep an eye on Catina to ensure he continues to make progress. -Continue to follow peripherally, likely s/o mid week as long as progress continues to be made. -Questions answered, concerns addressed, emotional support provided. -SW contacted to speak with family per their request. - will continue to follow for ongoing monitoring of progression of Pain as well as for appropriateness for hospice care due to Stroke - will continue treatment including n/a L MCA stroke -LKW Tuesday, did not present until Tuesday. -Initial CTH-->Large left MCA territory infarct with hyperdense left MCA. Sulcal effacement and mild mass effect on the left lateral ventricles -Out of the window for intervention, not able to perform thrombectomy -02-07-23 Repeat CTH-->subacute large left MCA territory infarct. No interval hemorrhagic conversion. Interval worsening of mass effect with increased effacement of the left lateral ventricle, 7 mm rightward midline shift measured at the septum pellucidum, mass effect on the left vertebral peduncle and partial effacement of the ambient cisterns. -3% NS currently. -ECHO completed, await results. -Unknown source of stroke. -NCC managing. Global aphasia -2/2 stroke. -DHT in place, TF running. -Did pass swallow evaluation today-->puree diet and dysphagia plan of care. -Does follow commands this morning on LUE, but not anywhere else. -Monitor. Debility -2/2 above stroke. -R hemiparesis noted 2/2 above. -Global aphasia, likely will have dysphagia as well. -As above await SUPERVISOR DEHYDROGENATION recs. -Previously independent at home. -PT/OT/SUPERVISOR DEHYDROGENATION -Monitor. Hx CAD -Per primary Hx HLP -Statin started per NCC Total of 55 minutes spent on this encounter including Chart review, Patient visit and exam, Documentation in EHR, Care coordination, and Communicating with primary attending or other consultants. Discharge planning: Not ready for discharge due to overall status, awaiting placement likely. Patient meets criteria for general inpatient hospice care including the following: N/A - Palliative Care Patient Referrals to: None Discussed patient and the plan of care with the other interdisciplinary team (IDT) members of Palliative Care Team, and with Primary Attending, Patient, Family, and Floor Nurse I have discussed the patient's case and plan of care with my collaborating physician Dr. Sales Subjective: Hospital days prior to consult: 1 Trauma Consult: no. Subjective/Events He is seen today, in the chair. Just worked with therapy. DHT in place, planning for SUPERVISOR DEHYDROGENATION evaluation. Discussion with family as above. Patient remains on 3% NS. NAEON. Continue to follow clinical course peripherally. Not able to fully participate in ROS r/t aphasia, patient does follow commands. Reports no pain. INTERIM-->Catina is a 67 year old man with PMH of CAD, HLP. Presents to [facility] ER after being found down at home. Family had called FD for well check after being unable to contact him. LKW 3-31 AM. Seen by neighbors prior. Imaging showing large L MCA infarct. Out of window for intervention. Not able to attempt thrombectomy r/t established core infarct. He was admitted to T2 ICU with NCC and cardiology consults. He previously was established DNR-CCA, however after improvement documented, NCC reversed code status back to full. Palliative care consulted for goals of care. Pain Assessment (If Pain Scale >0) See flacc. Goals of care:Continue Current Management Advance Directives: Full Code Surrogate: Extended Family Prognosis: depends upon goals Spiritual assessment: No spiritual distress identified Bereavement and grief: To Be Determined Past Medical History: Diagnosis Date CAD (coronary artery disease) History of coronary artery bypass graft x 2 04/2014 Hyperlipidemia [place], old 03/28/2014 STEMI-inferior Pneumonia Presence of stent in coronary artery 03/2014 Third degree AV block (CMS/HCC) (HCC) 03/28/2014 during inferior STEMI Past Surgical History: Procedure Laterality Date CORONARY ANGIOPLASTY 03/28/2014 DANDY to prox RCA x 2 CORONARY ARTERY BYPASS GRAFT 04/2014 SENIOR-LAD, SVG-PD/RCA Family History Problem Relation Name Age of Onset Coronary artery disease Mother Cancer Mother Cancer Father Unable to obtain family history due to N/A- family history available Not on File Review of Systems ROS: See palliative care ROS/ESAS below; Detail ROS unable to be obtained due to patient's mental status Marsteller Symptom Assessment Score Marsteller Score Pain Score 0 Tiredness Score 0 Nausea Score 0 Depression Score 0 Anxiety Score 0 Drowsiness Score 0 Anorexia Score (0= eating well, 10= not eating) 10 Wellbeing Score (10= worst sense of well-being) 6 Constipation 0 Dyspnea Score (0= no shortness of breath) 0 FLACC Scale (For Pain Assessment of the Non-Verbal Patient) Face: 0- no particular expression Legs: 0- normal position or relaxed Activity: 0-lying quietly, moves easily Cry: 0-no cry Consolability:0-content, relaxed Total Score: 0 Assessed by: provider. Social history: [place] status: no Marital status: single Living status: alone Work history: n/a Advance Care Planning: The patient has capacity to make healthcare and advanced care planning decisions No The patient's identified surrogate decision maker is Extended Family. Discussion participants: sisters Goals of Care We discussed goals of care related to the patient's current health as documented below: See above We discussed [id number] concerns identified by the patient/surrogate, including See above Interventions reviewed: N/a Advance Care Planning Documents: Healthcare Power of Roller Skate Repairer: Not completed Financial Power of Roller Skate Repairer: Not completed Living Will: Not completed Code Status: Full Code Family Meeting: Participants: extended family Family meeting was held to discuss:Goals of Care Objective: Physical Exam BP (!) 186/88 Comment: metoprolol Pulse 84 Temp 36.9 C (98.4 F) (Temporal) Resp 14 Ht 5' 5" (1.651 m) Wt 163 lb 12.8 oz (74.3 kg) SpO2 94% BMI 27.26 kg/m Physical Exam Vitals and nursing note reviewed. Constitutional: General: He is not in acute distress. Appearance: He is ill-appearing. HENT: Head: Normocephalic and atraumatic. Nose: Nose normal. Comments: DHT present Mouth/Throat: Mouth: Mucous membranes are moist. Pharynx: Oropharynx is clear. No oropharyngeal exudate or posterior oropharyngeal erythema. Eyes: General: Right eye: No discharge. Left eye: No discharge. Cardiovascular: Rate and Rhythm: Normal rate and regular rhythm. Pulses: Normal pulses. Heart sounds: Normal heart sounds. No murmur heard. Pulmonary: Effort: Pulmonary effort is normal. No respiratory distress. Breath sounds: Normal breath sounds. Abdominal: General: Bowel sounds are normal. There is no distension. Palpations: Abdomen is soft. Musculoskeletal: Cervical back: Normal range of motion and neck supple. Right lower leg: No edema. Left lower leg: No edema. Skin: General: Skin is warm and dry. Capillary Refill: Capillary refill takes less than 2 seconds. Neurological: Mental Status: He is alert. Comments: Follows commands Does not speak, appears to understand what I am saying Psychiatric: Comments: Calm and cooperative Current Medications: Inpatient medications reviewed: yes Home medications reviewed: yes OARRS Reviewed: No Report Available 24 Hour PRN Meds: no PRN medications in 24 hours Results/Verification of Data Review Objective data reviewed (be specific which labs, imaging reports with dates reviewed): See A/P Data in Support of Terminal Illness: Is patient hospice appropriate? no Transition Note Initiated: yes. Associated Order(s): IP CONSULT TO PALLIATIVE CARE Palliative Care consult acknowledged, chart reviewed. No uncontrolled symptoms at present time. Pt is appropriately a DNR-CCA/DNI. Full consult to follow on 02/07/23. Catina Land is a 67 year old male with PMH CAD (s/p CABG & stenting), HLD who presents to [facility] ED 02/05 via EMS after being found down on bathroom floor surrounded by vomit by EMS. Per family, fire department was called for well check after being unable to contact Catina. LKW~sometime Tuesday morning, he was seen by neighbors. Imaging on admission showed large L MCA infarct. Palliative care consulted for goals of care. Associated Order(s): IP CONSULT TO CARDIOLOGY [facility] [place] [facility] Cardiology /Electrophysiology Consult Note Reason for Consult: elevated trop, inverted T waves and depressions in V3-V6 Referring provider: Dr Sonia Pagan Established hotel breakfast attendant: Dr Juan Collazo History of Present Illness: Catina Land is a 67 y.o. male with a PMHx of tobacco smoking, HTN, HL and CAD presented with an acute ischemic stroke. He had inferior STEMI in 2023 initially with PCI to prox RCA, and CABG (SENIOR-LAD, SVG-PD/RCA) one month later. He was last seen normal 2 days prior to presentation. Today, his niece went to check on him and found him on the ground with profound weakness to the right side and a left-sided gaze palsy, and unable to speak. He was seen by neurology who reviewed the head CT and found a large hypodensity of entire left MCA distribution with mass effect and midline shift, and left M1 proximal occlusion. Has been in persmissive HTN with SBPS in 180-190s. Labs show normal creatinine, and a troponin of 7.77 with CPK of 1573. ECG shows inverted T waves in anterolateral leads, but no ST elevation Currently lying in bed, sleeping. RRR, clear lungs, no JVD, no edema, warm skin. Assessment/Plan Troponin elevation. CAD s/p remote WA/PCI/CABG. Mr Land had a significant troponin elevation. He has three potential reasons which are 2/2 to large acute stroke, rhabdomyolysis or demand ischemia (or a combination of these). In the setting of this large stroke we will defer from starting anticoagulation and undergoing ischemic evaluation. If nutrition is started, I recommend continuing baby aspirin and statin, and can also consider BB. We will get a TTE for risk stratification. Medications: sodium chloride 0.9%, 5-40 mL, IntraVENous, q12h Infusion Medications: sodium chloride, 50 mL sodium chloride, 50 mL/hr sodium chloride, 50 mL/hr, Last Rate: 50 mL/hr (02/05/23 1403) Physical Examination: Vitals: 02/05/23 1222 02/05/23 1234 02/05/23 1319 BP: (!) 193/110 (!) 189/115 (!) 193/96 Pulse: 103 89 98 Resp: 18 18 SpO2: 100% 100% 99% No intake or output data in the 24 hours ending 02/05/23 1449 Wt Readings from Last 3 Encounters: No data found for Wt Physical Exam Constitutional: comfortable Psychiatric: A &O x 0. NMT: Oral mucosa is pink and moist Neck: no JVD. Respiratory: Lungs are clear Cardiac exam: Rhythm: RRR ; Normal S1 and S2 Murmur: no Other: No rub; no gallop Vasc: Peripheral pulses palpable Abdomen: soft Extremities: no LE edema Skin: Warm to touch and well perfused Laboratory Tests: Recent Labs 02/05/23 1225 NA 139 K 4.1 CL 104 CO2 28 BUN 23* CREATININE 1.01 EGFR 81.5 Recent Labs 02/05/23 1225 CKTOTAL 1,573* TROPONINI 7.770* Recent Labs 02/05/23 1225 WBC 14.2* HGB 17.4 HCT 53.9* MCV 90.0 PLT 281 No results found for: HGBA1C No results found for: TSH No results found for: CHOL No results found for: HDL No results found for: LDLCALC No results found for: TRIG No results found for: CHOLHDL No results for input(s): BNP in the last 72 hours. Recent Labs 02/05/23 1225 INR 1.1 Results from last 7 days Lab Units 02/05/23 1225 AST U/L 93* ALT U/L 27 No results found for: IRON, TIBC, FERRITIN Radiology: CXR: personally reviewed: Cardiac Tests Personally Reviewed: Last EKG 02/05/23 ECG 12-LEAD (Preliminary) This result has not been signed. Information might be incomplete. Impression Sinus rhythm Borderline prolonged NH interval Nonspecific intraventricular conduction delay Probable inferior infarct, old Nonspecific T abnormalities, lateral leads Jordin Pichardo MD DATE of SERVICE: 02/05/2023 Associated attestation - Tye Boyer MD - 02/05/2023 4:03 PM EDT I, Dr. Tye Boyer, saw and evaluated the patient on 02/05/2023. I personally obtained the driscoll and critical portions of the history and physical exam. I reviewed the chart, the fellow's documentation, and discussed the patient with the fellow. I agree with the fellow's medical decision making and have edited the note to reflect my clinical findings and my assessment and plan. In summary, Catina Land is a 67 yo M with a very large MCA stroke, no meaningful interaction at bedside. ECG ischemic. Troponin 7. BP elevation - No intervention due to large stroke, prognosis, and bleeding risk - No heparin due to bleeding risk - ASA per neurology - BP goals per neurology -- we can start Metoprolol once enteric access obtained - Statin once enteric access Echo Cardiology will follow peripherally Tye Boyer MD Department of Cardiovascular Disease, Division of Heart Failure [facility] [place] 4:00 PM 02/05/23 INITIAL CONSULT NOTE. NEUROCRITICAL CARE Patient Name: Catina Land Patient : 1955 Acct: [id number] Date of Admission: 02/05/2023 Room/Bed: 38/38 PCP: No primary care provider on file. History of Present Ilness: 67 year old patient LKW on , found by niece today in the house on the floor when she hadnt heard from her uncle. Found on floor unable to speak, right hemiplegia, left gaze forced deviation, in the bathroom with bodily fluids on the ground. Based on patient's habits, likely stroke occurred at Tuesday afternoon. Past Medical History: Past Medical History: Diagnosis Date CAD (coronary artery disease) History of coronary artery bypass graft x 2 04/2014 Hyperlipidemia [place], old 03/28/2014 STEMI-inferior Pneumonia Presence of stent in coronary artery 03/2014 Third degree AV block (CMS/HCC) (HCC) 03/28/2014 during inferior STEMI Past Surgical History: Past Medical History: Diagnosis Date CAD (coronary artery disease) History of coronary artery bypass graft x 2 04/2014 Hyperlipidemia [place], old 03/28/2014 STEMI-inferior Pneumonia Presence of stent in coronary artery 03/2014 Third degree AV block (CMS/HCC) (HCC) 03/28/2014 during inferior STEMI Home Medications: Current Hospital Medications: Current Facility-Administered Medications: labetalol (Normodyne,Trandate) injection 10 mg, 10 mg, IntraVENous, q10 min PRN, Ruby Saenz MD sodium chloride 0.9 % bolus 250 mL, 250 mL, IntraVENous, Once, Ruby Saenz MD, Last Rate: 250 mL/hr at 02/05/23 1230, 250 mL at 02/05/23 1230 sodium chloride 0.9 % infusion, 5-250 mL/hr, IntraVENous, PRN, Ruby Saenz MD sodium chloride 0.9 % infusion, 50 mL/hr, IntraVENous, Continuous, Ruby Saenz MD sodium chloride 0.9% (NS) flush 5-40 mL, 5-40 mL, IntraVENous, q12h, Ruby Saenz MD, 10 mL at 02/05/23 1231 sodium chloride 0.9% (NS) flush 5-40 mL, 5-40 mL, IntraVENous, PRN, Ruby Saenz MD No current outpatient medications on file. Continuous Infusions: sodium chloride, 50 mL/hr Allergies: Patient has no allergy information on record. Social History: TOBACCO: reports that he has been smoking cigarettes. He started smoking about 47 years ago. He has been smoking an average of 1 pack per day. He does not have any smokeless tobacco history on file. ETOH: reports current alcohol use. RECREATIONAL DRUG USE: Social History Substance and Sexual Activity Drug Use No Family History: Family History Problem Relation Name Age of Onset Coronary artery disease Mother Cancer Mother Cancer Father ROS; :Unable to obtain review of systems due to patient's mental status and lack of cooperation Review of Systems Physical Examination: Patient Vitals for the past 8 hrs: BP Pulse Resp SpO2 02/05/23 1234 (!) 189/115 89 18 100 % 02/05/23 1222 (!) 193/110 103 -- 100 % No intake/output data recorded. General Physical Examination: General: thin, elderly male, sitting up bed bed HEENT:Normocephalic, atraumaticl CV: RRR Pulm: coarse breath sounds bilaterally Abdomen: scaphoid Neurological Examination: Neurological Exam: Presence of sedatives: No Level of consciousness/Orientation: E2 V1 M5 = 8 (patient has global aphasia Speech/Language: mute, global aphasia Follows commands: No Cranial Nerves: Pupils (size, reactivity, position): 3 mm RERTL bilaterally- forced leftward gaze deviation Corneals: ++ Facial Nerve: right NLF flattending Cough: + Gag: NA Motor Exam: Tone: RUE, RLE- flaccid tone Power: Moves left arm and leg spontaneously, localizes to pain with LUE Sensation: Insensate over right side of face arm and leg Neglect of the right hemispace Coordination: UN Reflexes/Plantars: UN NIHSS 1a Level of consciousness: 2=not alert, requires repeated stimulation to attend, or is obtunded and requires strong or painful stimulation to make movements (not stereotyped) 1b. LOC questions: 2=Performs neither task correctly 1c. LOC commands: 2=Performs neither task correctly 2. Best Gaze: 2=forced deviation, or total gaze paresis not overcome by oculocephalic maneuver 3. Visual: 2=Complete hemianopia 4. Facial Palsy: 2=Partial paralysis (total or near total paralysis of the lower face) 5a. Motor left arm: 0=No drift, limb holds 90 (or 45) degrees for full 10 seconds 5b. Motor right arm: 4=No movement 6a. motor left le=No drift, limb holds 90 (or 45) degrees for full 10 seconds 6b Motor right le=No movement 7. Limb Ataxia: 0=Absent 8. Sensory: 2=Severe to total sensory loss; patient is not aware of being touched in face, arm, leg 9. Best Language: 3=Mute, global aphasia; no usable speech or auditory comprehension 10. Dysarthria: 2=Severe; patient speech is so slurred as to be unintelligible in the absence of or our of proportion to any dysphagia, or is mute/anarthric 11. Extinction and Inattention: 2=Profound stephanie-inattention or stephanie-inattention to more than one modality. Does not recognize own hand or orients only to one side of space Total: 27 Labs: Last 24hrs Recent Results (from the past 24 hour(s)) CBC Collection Time: 02/05/23 12:25 PM Result Value Ref Range Auto WBC 14.2 (H) 3.6 - 10.7 10*3/uL RBC 6.00 (H) 4.40 - 5.90 10*6/uL Hemoglobin 17.4 13.0 - 18.0 g/dL Hematocrit 53.9 (H) 40.0 - 52.0 % MCV 90.0 80.0 - 98.0 fL MCH 29.0 26.0 - 34.0 pg MCHC 32.2 32.0 - 36.0 % RDW 14.4 11.5 - 14.5 % Platelets 281 140 - 440 10*3/uL MPV 7.9 7.4 - 12.4 fL PROTIME/INR & PTT Collection Time: 02/05/23 12:25 PM Result Value Ref Range PROTHROMBIN TIME 11.1 9.0 - 12.0 s INR 1.1 0.9 - 1.1 APTT 27.8 20.0 - 30.5 s CK Collection Time: 02/05/23 12:25 PM Result Value Ref Range CK 1,573 (H) 30 - 170 U/L EKG 12 lead if not already done by Squad Collection Time: 02/05/23 12:32 PM Result Value Ref Range Heart Rate 91 bpm QRSD Interval 138 ms QT Interval 389 ms QTC Interval 480 ms P [place] 77 degrees QRS [place] 39 degrees T Wave [place] 162 degrees NH Interval 190 ms POCT glucose meter Collection Time: 02/05/23 12:36 PM Result Value Ref Range Glucose 102 (H) 70 - 100 mg/dL POCT glucose meter docked device Collection Time: 02/05/23 12:37 PM Result Value Ref Range Glucose Blood, POC 102 mg/dL Since admission: Recent Labs 02/05/23 1225 CKTOTAL 1,573* No results for input(s): ALKPHOS, ALT, AST, BILITOT, BILIDIR, AMYLASE, LIPASE in the last 72 hours. No lab exists for component: [email or web address]@BRIEFLAB([facility]) ABGs:)No results for input(s): PH, PO2, PCO2, HCO3, O2SAT in the last 72 hours. No lab exists for component: BE Cultures: Blood culture #1: No lab exists for component: BC Blood culture #2: No lab exists for component: BLOODCULT2 Antiepileptic levels: No results for input(s): PHENYTOIN, PHENOBARB, VALPROATE in the last 72 hours. No lab exists for component: CARBTOT, LAMOTRIG, KEPPRA Coagulation: Recent Labs 02/05/23 1225 INR 1.1 CSF: No results for input(s): CULTURE, PROTEIN in the last 72 hours. No lab exists for component: CHARCSF, CELL COUNT, GRAM STAIN Stroke Specific: Lipids: No results for input(s): CHOL, TRIG, HDL, AMYLASE, LIPASE in the last 72 hours. No lab exists for component: LDLCHOLESTEROL HgA1c: No lab exists for component: LABA1C Radiology Personal review: CTH- non contrast- large hyodensity involving entire left MCA distribution, with mass effect and midline shift CTA head and neck- left M1 proximal occlusion CTP: large 200cc core infarct without any mismatch ASSESSMENT / PLAN / SUGGESTIONS : 67 year old patient with hypertension, coronary artery disease who was found at home after a wellness check on the floor with signs of left MCA ischemic stroke. LKW > 24 hours ago. On examination patient with NIHSS 27, CTH- non contrast demonstrated large left MCA ischemic stroke with cytotoxic cerebral edema, brain compression and petechial hemorrhagic transformation. Etiology of stroke embolic- may be artheroembolic (vessel to vessel embolism) vs cardioembolic. Patient was not a candidate for IV thrombolytics due to presentation outside of the time window and although there is a Left M1 proximal occlusion, CTP- shows large established core infarct > 200cc with matched perfusion deficit therefore would not be a candidate for EVT due to high risk of reperfusion injury with an already established large ischemic stroke. Patient is not a surgical candidate for decompressive hemicraniectomy due to advanced age > 65 years and significant cardiac co-morbidities. Recommendations - Admit to T2-ICU, stroke order set - non thrombolytic - SBP 100-180 - Rectal aspirin now, and daily until able to swallow - IVF hydration, LR @ 75cc/hr - Hold high intensity statin due to elevated CK, early rhabdomyolysis - NIHSS/Neuro q2hr - Trend troponin to peak, intiial troponin 7.7, with EKG abnormal T-waves- may be due to large ischemic stroke, however patient at high risk for acute coronary syndrome- trend to peak, repeat EKG if needed - Management of cardiac/pulmonary and infectious work up as per MICU primary - Repeat CTH in the am @ 0400 - Start 3% HTS @ 50cc/hr, check Na q6hr, goal sodium 150-155 Family discussion held in consult room with patient's niece (Evelin) and patient's sister (Leighann) who is on the phone. Leighann confirms that herself and another sister are the closest NOK since Catina does not have a spouse, biological children or a HCPOA. I explained to them the [place] [employer]archy of Decision Makers and that Leighann and sister would be the legal NOK to make decisions collaboratively now that Catina is incapacitated from large ischemic stroke. We discussed the size of the stroke, current neurological deficits and high likelyhood of progression of cerebral edema and further neurological decline which in the setting of a large MCA stroke may lead to respiratory failure requiring intubation. Leighann verbalized that from what she knows of her brother- he would not want to be intubated in a setting where he has had a large neurological injury impacting his level of independence. However she is currently in [place] and would like to come up to [place] with sister to further discuss goals of care. As of right now will continue with treatment focused care, maximum medical therapy with hyperosmolar etc, however if Catina should decline overnight before Leighann arrives to bedside she would like to be called to discuss escalations of care. I personally spent [] 30, [x]64 , [] 70 minutes in critical care time for this neurocritically ill patient who is at high risk for both clinical and neurological decline due to further brain injury, which can occur unpredictably and rapidly cause multi-organ dysfunction. During that time I performed a face to face diagnostic evaluation of this patient reviewing labs, imaging studies and the electronic medical record; as well as counseling/coordinating care and provided discussion regarding diagnostic impressions and the plan of care with the consulting team and patient's family members/surrogate decision makers (in cases where the patient is incapacitated and unable to participate in their own care). Samson Camarena MD Neurocritical Care Attending Pager: [phone] documented in this encounter [facility] 02-09-2023 Procedure note Images from the original note were not included. Conscious Sedation Procedure Note Sedation Goal: moderate Procedure: CESARIO Indication: L MCA stroke unclear etiology Time Out: Completed immediately prior to the start of the procedure which included verification of the correct patient, correct site and agreement on the procedure to be done. Consent: The indications, risks, benefits, alternatives to the procedure were explained to the patient/surrogate decision maker and their questions answered. Consent was obtained to proceed with the procedure. Pre-Sedation Assessment Pre-Sedation Vital Signs: Vital signs were reviewed and were stable prior the procedure (see flowsheet) Pre-Sedation Exam: Assessment: I have personally completed a history, physical exam & review of systems for this patient (see notes). Pulmonary: clear to auscultation Cardiovascular: regular rate and rhythm ENT: no obvious abnormalities noted during assessment and normal neck range of motion Mallampati: Mallampati Class II - (soft palate, fauces & uvula are visible) ASA Classification: Class 4 - A patient with an incapacitating systemic disease that is a constant threat to life History of Anesthesia Complications: none Immediate Pre-Sedation Assessment There have been no changes in the patient's status since the initial assessment. Intra-Sedation Assessment Monitoring and Safety: The patient was placed on a monitor tech and vital signs, pulse oximetry, and level of consciousness were continuously evaluated throughout the procedure. The patient was closely monitored until recovery from the medications was complete and the patient had returned to baseline status. Respiratory therapy was on standby at all times during the procedure. Medications Used: 50 mg Ketamine and 90 mg Propofol Post-Sedation Assessment Post-Sedation Vital Signs: Vital signs were reviewed and were stable after the procedure (see flowsheet) Post-Sedation Exam: Pulmonary: clear to auscultation Cardiovascular: within normal limits Start time: 1115 Stop time: 1150 Complications: none apparent Sedation Provider: Dr. Jani Garces I personally performed the sedation documented as signed by this procedure note. [facility] Cardiac Post-Procedure Note Patient Name: Catina Land Date: 02/09/2023, 11:49 AM Pre-Operative Diagnosis: L MCA Stroke Post-Operative Diagnosis: Large KATELYNN Thrombus Procedure: CESARIO, ICU assisted with sedation Findings: KATELYNN: there is a very large thrombus filling the whole appendage and protruding into the left atrium LA: dilated RA: normal Atrial Septum: no PFO nor ASD LV: normal function RV: normal function Aorta: mild atherosclerosis of descending and arch No significant valve abnormalities Complications: none Plan: will need anticoagulation once deemed appropriate by Neuro, Neuro and ICU teams notified of findings Physician Signature: [id number], Cardiovascular Fellow at 11:55 AM Pager: [phone] I, Dr. Melody MD saw and evaluated the patient. I supervised Dr. Peterson, vp research, through out the procedure. I was present during the entire duration of the procedure. documented in this encounter [facility] 02-05-2023 Hospital Discharg e instructions Emmy Padgett RN - 02/05/2023 6:48 PM EDT Refer to the Understanding Stroke Booklet given to you, written material provided to patient/family, addressing all signs & symptoms of a stroke, which are: sudden numbness or weakness of the face, arm or leg, especially on one side of the body sudden confusion sudden difficulty speaking or understanding sudden trouble seeing in one or both eyes sudden trouble walking,dizziness, loss of balance or coordination sudden severe headache with no known cause syncope or temporary loss of consciousness seizure Explained the need to call EMS ([phone]) immediately if signs & symptoms occur. Discussed medications that the patient is taking, will review medications again prior to discharge, risk factors, and the need for follow-up with a physician/RELASTER/PA after discharge. Emmy Padgett RN on 02/05/23 at 6:47 PM Discussed the patient s personal risk factors for Stroke /TIA with patient/family, and ways to reduce the risk for a recurrent stroke. Patient's personal risk factors which were identified are: [x] High blood pressure [] High cholesterol [] Atrial fibrillation [] Diabetes [] Smoking/e-cigarettes/vaping [] Smokeless tobacco [] Overweight [x] Lack of Exercise [] Sleep apnea [x] Prior heart disease or heart attack [] Excessive alcohol use [] Use of illicit drugs [] Personal history of previous TIA or stroke [] Family history of stroke or heart disease [] Carotid stenosis [] Heart failure [] Patent Foramen [place] [] Migraine [] Hormone replacement therapy [] Current (up to six weeks post ) [] Depression [] Sickle Cell [] Renal insufficiency - chronic [] None Refer to Understanding Stroke Booklet. Advised patient that risk for stroke/TIA can be reduced by modifying/controlling risk factors. Patient advised to take medications as prescribed, which will be detailed in the discharge instructions, and to not stop taking them without consulting a physician. In addition, pt. advised to maintain a healthy diet, exercise regularly and to not smoke. Emmy Padgett RN on 02/05/23 at 6:47 PM Sweetie Krause RN - 02/17/2023 8:49 AM EDT Continuity of Care Form Patient Name: Catina Land : 1955 Admit date: 02/05/2023 Discharge date: 02/26/2023 Code Status Order: Full Code Advance Directives: N Admitting Physician: Sonia Pagan MD PCP: No primary care provider on file. Discharging Nurse: Sweetie JONES Discharging Hospital Unit/Room#: T2-212/T2 A Discharging Unit Phone Number: [phone] Emergency Contact: Extended Emergency Contact Information Primary Emergency Contact: Leighann Sanabria Relation: Other Secondary Emergency Contact: Eileen Restrepo Relation: Other Past Surgical History: Past Surgical History: Procedure Laterality Date CORONARY ANGIOPLASTY 03/28/2014 DANDY to prox RCA x 2 CORONARY ARTERY BYPASS GRAFT 04/2014 SENIOR-LAD, SVG-PD/RCA Immunization History: There is no immunization history on file for this patient. Active Problems: Medical Problems Problem List * (Principal) Acute ischemic stroke (HCC) Arterial ischemic stroke, MCA (middle cerebral artery), left, acute (HCC) Brain compression (CMS/HCC) (HCC) Cerebral edema (CMS/HCC) (HCC) Troponin level elevated History of coronary artery bypass graft x 2 Hyperlipidemia Presence of stent in coronary artery CAD (coronary artery disease) [place], old Overview Signed 08/23/2022 7:24 AM by Interface, Incoming Problems- [facility] Conversion STEMI-inferior Isolation/Infection: No active isolations No active infections Nurse Assessment: Last Vital Signs: BP 136/73 Pulse 74 Temp 36.4 C (97.6 F) (Temporal) Resp 17 Ht 1.651 m (5' 5") Wt 69.3 kg (152 lb 12.5 oz) SpO2 94% BMI 25.42 kg/m Last documented pain score (0-10 scale): Last Weight: Wt Readings from Last 1 Encounters: 02/12/23 69.3 kg (152 lb 12.5 oz) Mental Status: EDYTA Patient Mental Status: alert IV Access: EDYTA IV Access: None Nursing Mobility/ADLs: Walking Total assistance Transfer Total assistance Bathing Total assistance Dressing Total assistance Toileting Total assistance Feeding Total assistance Superior Court Clerk Total assistance Med Delivery yes Wound Care Documentation and Therapy: Elimination: Continence: Bowel: yes Bladder: yes Urinary Catheter: None Colostomy/Ileostomy/Ileal Conduit: None Date of Last BM: 02/26/2023 Intake/Output Summary (Last 24 hours) at 02/17/2023 0844 Last data filed at 02/17/2023 0600 Gross per 24 hour Intake 2238.5 ml Output 1130 ml Net 1108.5 ml I/O last 3 completed shifts: In: 2567.5 (37 mL/kg) [I.V.:1810 (26.1 mL/kg); NG/GT:751; IV Piggyback:6.5] Out: 2280 (32.9 mL/kg) [Urine:2275 (0.9 mL/kg/hr); Blood:5] Weight: 69.3 kg Safety Concerns: history of falls (last 30 days) and at risk for falls Impairments/Disabilities: speech and paralysis - right arm and leg Nutrition Therapy: Current Nutrition Therapy: Tube feedings: Jevity 1.5 @ 50ml/hr with 50ml water flushes Q4 Routes of Feeding: gastrostomy tube Liquids: no liquids Daily Fluid Restriction: no Last Modified Barium Swallow with Video (Video Swallowing Test): not done Treatments at the Time of Hospital Discharge: Respiratory Treatments: Duo-neb in the morning and evening Oxygen Therapy: is on oxygen at 2 L/min per nasal cannula. Ventilator: No ventilator support Rehab Therapies: physical therapy, occupational therapy, and speech therapy Weight Bearing Status/Restrictions: no restriction Other Medical Equipment (for information only, NOT a DME order): wheeled walker Other Treatments: na Patient's personal belongings (please select all that are sent with patient): glasses RN SIGNATURE: MANAGEMENT/SOCIAL WORK SECTION Inpatient Status Date: 02/05/2023 Readmission Risk Assessment Score: @READMISSIONRISKDETAILS@ Discharging to Facility/ Agency [facility] : [address] [place], [place] [address]huey Estrada, [place] [address] : Dialysis Facility (if applicable) Name: Address: Dialysis Schedule: Phone: Fax: Disintegrator/Rail Engineer signature: ICIAN SECTION Prognosis: fair Condition at Discharge: stable Rehab Potential (if transferring to Rehab): good Recommended Labs or Other Treatments After Discharge: None. Oxygen wean down Physician Certification: I certify the above information and transfer of Catina Land is necessary for the continuing treatment of the diagnosis listed and that he requires jail facility for greater than 30 days. Update Admission H&P: No change in H&P PHYSICIAN SIGNATURE: documented in this encounter [facility] 02-05-2023 History and physical note Internal Medicine: MICU Initial History and Physical Name: Catina Land : 1955(67 y.o.) Date: 02/05/23 Attending: Dr. Pagan Subjective: Chief Complaint: found down on bathroom floor, altered mental status, L eye deviation, R side hemiplegia HPI: 67yr old male with PMH of CAD (s/p CABG & stenting), HLD who presents to [facility] ED 02/05 via EMS after being found down on bathroom floor surrounded by vomit by EMS. Per family, fire department was called for well check after being unable to contact Catina. LKW~sometime Tuesday morning, he was seen by neighbors. VS on ED arrival: HR 103 RR 18 193/110. Imaging showed large L MCA infarct. Out of window for TNK, not amenable to thrombectomy d/t large established core infarct. Significant labs included troponin~7 and CK 1573. EKG showed inverted T waves. He was admitted to T2 ICU with neuro-CC and cardiology consults. On exam, his eyes are open. Intermittently following commands with LUE. L gaze deviation present. No movement noted to RUE/RLE. Discussed severity of stroke with starr, as well as two sisters (Laverne and Leighann) on phone. No established HCPOA, decision making defers to sisters. Both agreed to code status change to DNR-CCA-DNI in the event his breathing were to decompensate. Discussed concern that swelling will continue to worsen over the next 2-3 days. Family understands, ongoing plans to come in from out of town. Past Medical History: Diagnosis Date CAD (coronary artery disease) History of coronary artery bypass graft x 2 04/2014 Hyperlipidemia [place], old 03/28/2014 STEMI-inferior Pneumonia Presence of stent in coronary artery 03/2014 Third degree AV block (CMS/HCC) (HCC) 03/28/2014 during inferior STEMI Past Surgical History: Procedure Laterality Date CORONARY ANGIOPLASTY 03/28/2014 DANDY to prox RCA x 2 CORONARY ARTERY BYPASS GRAFT 04/2014 SENIOR-LAD, SVG-PD/RCA Family History Problem Relation Name Age of Onset Coronary artery disease Mother Cancer Mother Cancer Father Social History Socioeconomic History Marital status: Single Spouse name: Not on file Number of children: Not on file Years of education: Not on file Highest education level: Not on file Occupational History Not on file Tobacco Use Smoking status: Every Day Packs/day: 1.00 Types: Cigarettes Start date: 03/17/1975 Smokeless tobacco: Not on file Substance and Sexual Activity Alcohol use: Yes Drug use: No Sexual activity: Not on file Other Topics Concern Not on file Social History Narrative Not on file Social Determinants of Health Financial Resource Strain: Not on file Food Insecurity: Not on file Transportation Needs: Not on file Physical Activity: Not on file Stress: Not on file Social Connections: Not on file Intimate Partner Violence: Not on file Housing Stability: Not on file Not on File Prior to Admission medications Not on File Objective: Oxygen Delivery: O2 Flow Rate (L/min): 4 L/min VITALS: BP (!) 167/100 Pulse 85 Temp 36.8 C (98.2 F) (Temporal) Resp 18 SpO2 97% CURRENT PULSE OXIMETRY: SpO2: 97 % Review of Systems Unable to perform ROS: Patient nonverbal Constitutional: General Appearance []WDWN []Obese []Cachectic []Thin [x]Ill Eyes: Inspection of Pupils/Irises Pupils round and react: [x]Yes []No Sclera: []Icteric [x]Non-Icteric Inspection of Conjunctiva/Lids Conjunctiva: []Injected [x]Non-Injected Lids: [x]Intact []Lesion Present +L sided gaze deviaion ENT/Mouth: External Inspection of ears/nose [x] Normal [] Scar/Lesion/Mass Inspection of teeth/lips/gums Dentition: [x][place] Teeth []Dentures Lips/Gums: [x]Intact []Lesion Present Mucosa: [x][place] [x]Moist []Dry +dried emesis noted Neck: External Appearance Overall Appearance: [x]Normal []Lesion/Mass/Crepitus Present Trachea midline: [x]Yes []No Thyroid [x]Normal []Enlarged []Tender []Mass []Absent Respiratory: Respiratory effort []Labored [x]Non-Labored [] Mechanically-Ventilated Auscultation []Clear []Crackles []Wheezes [x]Rhonchi Cardiovascular: Auscultation Rate: [x]Regular []Irregular []Tachycardia []Bradycardia Rhythm: [x]Regular []Irregular Murmur: []Present [x]Absent Extremities Peripheral Edema: []Present [x]Absent Varicosities: []Present [x]Absent Gastrointestinal: Abdomen Palpation: [x]Soft []Firm []Tender [x]Non-Tender []Distended [x]Non-distended Mass: []Present [x]Absent Bowel Sounds: [x]Present []Absent Hernia: []Present [x]Absent Liver/Spleen: []Hepatosplenomegaly []Organomegaly Absent Musculoskeletal: Inspection of Digits and Nails Cyanosis: []Present [x]Absent Clubbing: []Present [x]Absent Ischemia: []Present [x]Absent Infection: []Present [x]Absent Extremities GARCIA Equally: Except ([x]RUE [x]RLE []LUE []LLE) Strength/Tone: Intact and Normal ([]RUE []RLE [x]LUE [x]LLE) +no movement to RUE/RLE +intermittently following commands LUE/LLE Skin: Inspection [x]Normal []Rash []Lesion []Ulcer Palpation [x]Warm []Cool [x]Dry []Clammy []Nodules []Induration []Skin-tightening Cap-Refill: [x] <3 sec [] >3 seconds (delayed) Neurologic: GCS EYE: 3 - Opens to verbal commands GCS MOTOR: 6 - Obeys commands for movement GCS VERBAL: 1 - No response Total GCS: 10 [x] Sensation grossly intact Psych: Mental Status Alert: []Yes [x] No Oriented: []x0 []X1 []X2 []x3 ALLISON, aphasic Mood/Affect []Normal [x]Flat []Agitated []Depressed []Anxious []Calm []Sedated []NAD [facility] Labs within last 24 hours- BMP: Recent Labs 02/05/23 1225 02/05/23 1445 NA 139 136 K 4.1 3.8 CL 104 102 CO2 28 27 BUN 23* 22* CREATININE 1.01 0.86 CALCIUM 9.1 8.5 LFTs: Recent Labs 02/05/23 1225 02/05/23 1445 AST 93* 76* ALT 27 24 PROT 7.6 6.8 ALBUMIN 4.4 4.0 BILITOT 1.4* 1.5* ALKPHOS 80 67 Glucose: Recent Labs 02/05/23 1225 02/05/23 1236 02/05/23 1237 02/05/23 1445 GLUCOSE 105* -- -- 103* POCGLU -- 102* 102 -- Procal: No results for input(s): PROCAL in the last 72 hours. CBC: Recent Labs 02/05/23 1225 02/05/23 1445 WBC 14.2* 13.3* HGB 17.4 16.3 HCT 53.9* 48.7 PLT 281 246 MCV 90.0 89.3 RDW 14.4 14.7* ABGs: No results for input(s): PHART, PKL1TXR, PO2ART, NUB2PJY, SO2ART, Y7VAORYX in the last 72 hours. Lactic Acid: No results for input(s): LACTATE in the last 72 hours. INR: Recent Labs 02/05/23 1225 INR 1.1 Cardiac Injury Profile: Recent Labs 02/05/23 1225 02/05/23 1445 CKTOTAL 1,573* -- TROPONINI 7.770* 6.470* Labs in Last 3 months: Lab Results Component Value Date INR 1.1 02/05/2023 Microbiology- Urine Cx: No results found for: URINECX Blood Cx: No results found for: BLOODCX Sputum Cx: No results found for: RESPCULT Gram Stain: No results found for: LABGRAM PNA PCR: No results found for: HUMANMETAPNE COVID19: No results found for: COVID19 Legionella Ag: No results found for: LEGIONELLAPN Strep Ag: No results for input(s): STREPPNEUMO in the last 72 hours. Imaging- 02/05 CTH: Large left MCA territory infarct with hyperdense left MCA. Sulcal effacement and mild mass effect on the left lateral ventricles. ASPECT SCORE= 0. 1 mm rightward midline shift measured at the subtle signal. No herniation. Subtle hyperdensity in the left parietal convexity could represent subtle subarachnoid hemorrhage, 4 CTP: Perfusion CT demonstrates large perfusion abnormality consistent with large left MCA territory infarct. CTA with left M1 occlusion. Nonenhancement of the left intracranial and intracranial ICA is nonspecific and could be due to significant back pressure resulting in nonenhancement versus occlusion which could appear similar. The left TONI is patent. Moderate to severe focal stenosis of the right COMMERCIAL LOAN SPECIALIST and mild to moderate focal stenosis of the left COMMERCIAL LOAN SPECIALIST at the P1-P2 junctions as discussed. Cervical spondylosis. Approximately 10% stenosis of the right cervical ICA by NASCET criteria. NASCET criteria not applicable for the left ICA. Nonspecific frothy secretions in the right maxillary sinus which can be seen with acute sinusitis if in the appropriate clinical setting. 02/05 CXR: Mild pulmonary congestion. No acute infiltrates. Assessment and Plan: Principal Problem: Acute ischemic stroke (HCC) Active Problems: Arterial ischemic stroke, MCA (middle cerebral artery), left, acute (HCC) Brain compression (CMS/HCC) (HCC) Cerebral edema (CMS/HCC) (HCC) Troponin level elevated Assessment & Plan: L MCA ischemic stroke: neuro-CC following. Out of window for TNK, nonamenable to thrombectomy d/t established infarct. Admit to T2 ICU for monitoring. Start 3% hypertonic saline @ 50ml/hr--goal Na 150-155. Na checks q6h. Repeat CTH tomorrow AM. Rectal ASA for now. Hold statin d/t elevated CK. Hold antiplatelet d/t HT on imaging. SBP goals 100-180. PRN labetalol & hydralazine ordered. PT/OT/SUPERVISOR DEHYDROGENATION when able. Elevated CK, rhabdomyolysis: CK~1500. Likely early rhabdo d/t downtime. Trend on AM labs. Continue IVF. Holding statin. Presumed aspiration PNA: found surrounded by emesis. CXR without clear infiltrate, SpO2 stable on 2L NC. DNR-CCA-DNI per discussion with family. Will start unasyn preemptively for aspiration PNA. Continue for 5-7 day course. NSTEMI, hx CAD s/p CABG: trop~7, EKG w/ T wave inversions. Hx of CABG & stenting previously. Cards consulted--no intervention d/t size of MCA stroke, bleeding risk and prognosis. No heparin d/t HT on CT. Continue BP goals per neuro--can start lopressor pending GOC discussion with family. Hold on enteric access for tonight. Holding statin d/t elevated CK, start when improved. Trend trop q6h. FEN: NPO, can obtain enteral access tomorrow pending discussion with family & repeat CTH. Electrolytes WNL. Strict I/O. PRN bowel regimen. GI Prophylaxis: Pantoprazole IV DVT Prophylaxis: SCDs Disposition: admit to T2 ICU . Initial discussion with niece and sister (Leighann) alongside Dr. Camarena. Repeat discussion with both sisters (Leighann & Elsy). Discussed concerns that cerebral swelling will worsening causing decompensation in neurological as well as respiratory status. Both sisters agree that he would not want to be intubated and placed on mechanical support if that were to occur. DNR-CCA-DNI status placed in chart. Family to make arrangements to come in from out of town. Will consult palliative care for assistance and family support. Critical Care Time: 40 Total critical care time caring for this patient with life threatening, unstable organ failure, including direct patient contact, management of life support systems, review of data including imaging and labs, discussions with other team members and physicians, excluding procedures. documented in this encounter [facility] 02-05-2023 Emergency department Note Lab called with troponin of 7.770, this result shared with Dr. Pagan via secure chat Milana Casillas RN 02/05/23 3639 Patient to T2 with ER nurses. Patient on portable monitor tech. No distress noted at this time. Winnie Abrams RN 02/05/23 8925 EKG at bedside. Winnie Abrams RN 02/05/23 5086 Report to Eli on T2 at this time, neuro at bedside Rosa Landers RN 02/05/23 1329 Neuro at bedside. Winnie Abrams RN 02/05/23 1327 MD Camarena at bedside Rosa Landers RN 02/05/[address] Camarena at bedside. Winnie Abrams RN 02/05/[address] No distress noted. Winnie Abrams RN 02/05/23 1257 EKG at bedside. Winnie Abrams RN 02/05/23 1232 Blood work sent to lab. Winnie Abrams RN 02/05/23 1232 Initial glucose per EMS was 100 Rosa Landers RN 02/05/23 1233 EMERGENCY DEPARTMENT ENCOUNTER Pt Name: Catina Land Birthdate 1955 Date of evaluation: 02/05/2023 ED Provider: Ruby Saenz MD CHIEF COMPLAINT No chief complaint on file. HISTORY OF PRESENT ILLNESS (Location/Symptom, Timing/Onset, Context/Setting, Quality, Duration, Modifying Factors, Severity) Note limiting factors. I wore appropriate PPE for the entirety of this encounter. HPI Catina Land is a 67 y.o. male who presents to the emergency department with chief complaint of ALTERED MENTAL STATUS, RIGHT SIDE NEGLECT. With a history of CAD, prior [place], presents to the ED due to concern for stroke. He was last seen by his neighbors on . Today his niece came to check on him as they had not heard from him and were unable to get into his home. Ultimately they called for help, and found patient on the ground, with profound weakness to the right side and a left-sided gaze palsy, and unable to speak. EMS notes that he started to have emesis on route. History limited due to patient acuity, and his nonverbal nature, no family member available on site. Nursing Notes were reviewed. Limitations to history: Dysarthria Outside historians: EMS REVIEW OF SYSTEMS Review of Systems Pertinent positives and negatives as per HPI. PAST MEDICAL HISTORY Past Medical History: Diagnosis Date CAD (coronary artery disease) History of coronary artery bypass graft x 2 04/2014 Hyperlipidemia [place], old 03/28/2014 STEMI-inferior Pneumonia Presence of stent in coronary artery 03/2014 Third degree AV block (CMS/HCC) 03/28/2014 during inferior STEMI SURGICAL HISTORY Past Surgical History: Procedure Laterality Date CORONARY ANGIOPLASTY 03/28/2014 DANDY to prox RCA x 2 CORONARY ARTERY BYPASS GRAFT 04/2014 SENIOR-LAD, SVG-PD/RCA CURRENT MEDICATIONS Previous Medications No medications on file ALLERGIES Patient has no allergy information on record. FAMILY HISTORY Family History Problem Relation Name Age of Onset Coronary artery disease Mother Cancer Mother Cancer Father SOCIAL HISTORY Social History Socioeconomic History Marital status: Single Tobacco Use Smoking status: Every Day Packs/day: 1.00 Types: Cigarettes Start date: 03/17/1975 Substance and Sexual Activity Alcohol use: Yes Drug use: No SCREENINGS NIH Stroke Scale 1A. Level of Consciousness: Arouses to Minor Stimulation 1B. Ask Month and Age: No Questions Right 1C. Blink Eyes & Squeeze Hands: Performs 1 Task 2. Best Gaze: Forced Deviation 3. Visual: Partial Hemianopia 4. Facial Palsy: Complete Paralysis 5A. Motor - Left Arm: No Drift 5B. Motor - Right Arm: No Movement 6A. Motor - Left Leg: No Drift 6B. Motor - Right Leg: No Movement 7. Limb Ataxia: Absent 8. Sensory Loss: Normal 9. Best Language: Mute, Global Aphasia 10. Dysarthria: Intubated (mute) 11. Extinction and Inattention: Profound Stephanie-Inattention or Extinction to More than One Modality NIH Stroke Scale: 23 PHYSICAL EXAM ED Triage Vitals Temp Pulse Resp BP -- -- -- -- SpO2 Temp src Heart Rate Source Patient Position -- -- -- -- BP Location FiO2 (%) -- -- Physical Exam Constitutional: Appearance: He is ill-appearing. HENT: Head: Normocephalic. Mouth/Throat: Mouth: Mucous membranes are dry. Cardiovascular: Rate and Rhythm: Normal rate and regular rhythm. Pulmonary: Comments: Diminished breath sounds, ON 4l nc, dried emesis to mouth Abdominal: Palpations: Abdomen is soft. Musculoskeletal: General: No tenderness, deformity or signs of injury. Skin: General: Skin is dry. Neurological: Mental Status: He is alert. Comments: NIH as above, does have a forced left-sided gaze palsy, facial droop, flaccid right upper and right lower extremity, difficult to assess visual arredondo and sensation as patient is mute.. To have profound right-sided hemineglect. NIH 23 NIH Stroke Scale: 23 As above DIAGNOSTIC RESULTS Procedures/EKG: EKG was reviewed by myself. Physician EKG interpretation can be found in [facility] RADIOLOGY (Per Emergency Physician): Interpretation per the Radiologist below, if available at the time of this note: CT head wo IV contrast Final Result Large left MCA territory infarct with hyperdense left MCA. Sulcal effacement and mild mass effect on the left lateral ventricles. ASPECT SCORE= 0. 1 mm rightward midline shift measured at the subtle signal. No herniation. Subtle hyperdensity in the left parietal convexity could represent subtle subarachnoid hemorrhage, cortical petechial hemorrhage or apposition of luna matter. CRITICAL TEST RESULT COMMUNICATION: Notification of these findings was made to Dr. Camarena via phone call on 02/05/2023 1:15 PM EDT. Report Dictated on Electronically Signed By: Ramón Tavares Electronically Signed Date/Time: 02/05/2023 1:18 PM EDT CTA head neck angio w and wo IV contrast (Results Pending) CT PERFUSION (Results Pending) ED BEDSIDE ULTRASOUND: Performed by ED Physician - none LABS: Labs Reviewed CBC (HEMOGRAM) TROPONIN I PROTIME & APTT POCT GLUCOSE METER POCT BMPI All other labs were within normal range or not returned as of this dictation. EMERGENCY DEPARTMENT COURSE and DIFFERENTIAL DIAGNOSIS/MDM: Vitals: There were no vitals filed for this visit. Diagnoses as of 02/05/23 1632 Acute ischemic stroke (HCC) Elevated troponin Abnormal ECG The patient presented with chief complaint of altered mental status. The differential diagnosis associated with this patient's presentation includes stroke, intracranial bleed, electrolyte abnormality, infection, dehydration, rhabdomyolysis, ACS, aspiration pneumonia. Our workup consisted of ordering/reviewing: CT head, CTA, CT perfusion, blood work, EKG, troponin, chest x-ray. Patient is in agreement with this plan. 67-year-old male presents the ED as above. History physical exam as above. In the ED he is tachycardic and hypertensive. Does have profound right-sided hemineglect, Shall droop, left-sided gaze palsy, profound right-sided paralysis consistent with a stroke, large vessel occlusion. Given the newfound emesis it is possible could be stroke with hemorrhagic conversion, or acute intracranial bleed leading to his symptoms as we are unsure exactly the history if he fell and then developed the symptoms or had a stroke and then fell. I did evaluate him quickly, and taken urgently for CT, I did contact stroke neurology based on patient's presentation. Given his last known well at he is not within the window for any acute thrombolytic or thrombectomy. His CT does show a large MCA infarct. Provide 1 dose rectal aspirin. Chest x-ray pending. His blood work shows elevated troponin at 7.7, he does have a history of prior CAD, prior [place]. Given his aphasia unable to assess his symptoms at this time. His EKG does show new ST depressions in V3 through V6 with T wave inversions, new from prior EKG on file.. It is quite possible that these T wave inversions are in the setting of cerebral ischemia, and the elevated troponin is in the setting of demand. However, patient's history, I did contact cardiology appreciate their input in his further management. They note they will evaluate the patient. Neuro does recommend ICU admission given the extent of his stroke and his frequency of neurochecks he will need. I did contact ICU and relay report. He admitted in critical condition, please see inpatient documentation for continuity of care Medications sodium chloride 0.9% (NS) flush 5-40 mL (has no administration in time range) sodium chloride 0.9% (NS) flush 5-40 mL (has no administration in time range) sodium chloride 0.9 % infusion (has no administration in time range) sodium chloride 0.9 % bolus 250 mL (has no administration in time range) sodium chloride 0.9 % infusion (has no administration in time range) labetalol (Normodyne,Trandate) injection 10 mg (has no administration in time range) REVAL: CRITICAL CARE TIME Total Critical Care time was 46 minutes, excluding separately reportable procedures. There was a high probability of clinically significant/life threatening deterioration in the patient's condition which required my urgent intervention. CONSULTS: None PROCEDURES: Unless otherwise noted below, none Procedures FINAL IMPRESSION 1. Acute ischemic stroke (HCC) DISPOSITION PATIENT REFERRED TO: No follow-up provider specified. DISCHARGE MEDICATIONS: New Prescriptions No medications on file (Comment: Please note this report has been produced using speech recognition software and may contain errors related to that system including errors in grammar, punctuation, and spelling, as well as words and phrases that may be inappropriate. If there are any questions or concerns please feel free to contact the dictating provider for clarification.) Ruby Saenz MD (electronically signed) Emergency Medicine Provider uRby Saenz MD Resident 02/05/23 1356 Ruby Saenz MD Resident 02/05/23 135 Emergency Department Encounter [facility] EMERGENCY DEPT Patient: Catina Land : 1955 Date of Evaluation: 02/05/2023 I independently examined and evaluated Catina Land. This will serve as my Supervisory note and shared attestation. I performed a substantive portion of the visit including all aspects of the Medical Decision Making. In brief: patient last seen well by neighbor 2 days ago. Found down with significant right face and arm weakness by family this morning, vomited en route to the ED, 92% O2 sat on RA. Patient is nonverbal. Focused exam: right facial droop, right upper extremity and right lower extremity are flaccid. Right sided stephanie-neglect. Mute. Brief ED course/MDM: The patient presented with a chief complaint of found down. The differential diagnosis associated with this patient's presentation includes ICH or large vessel occlusion. Unfortunately outside interventional window if ischemic. Our workup consisted of ordering/reviewing CT head. It showed hypodensity in the left MCA distribution with mass effect and slight midline shift. We also obtained additional blood work including a troponin which returned very elevated at 7.77. CK elevated as well at 1573. He has a leukocytosis of 14.2 without anemia. Coags are normal. I reviewed the ECG showing sinus rhythm 91 bpm with normal QTc of 480 ms, nonspecific IVCD, anterior ST depressions. ECG repeated without significant change. I spoke with Dr. Camarena the stroke neurologist on-call in person who assessed the patient and advises poor prognosis. Cardiology was consulted and will see the patient. He will be admitted in critical condition. Diagnostic tests considered but not performed: CXR External records reviewed: Reviewed pulmonology note from 2017 noting history of nicotine dependence, screened negative for lung cancer that year. History otherwise includes CABG, hyperlipidemia, pneumonia. Diagnoses as of 02/05/23 1633 Acute ischemic stroke (HCC) Elevated troponin Abnormal ECG Total critical care time today provided was at least 30 minutes. This excludes seperately billable procedure. Critical care time provided for neurological and cardiovascular emergencies that required Stroke Neurology and Cardiology consultation, close evaluation and/or intervention with concern for patient decompensation. I made all diagnostic, treatment, and disposition decisions in conjunction with the resident. I also supervised driscoll portions of any procedures performed by the resident. For all further details of the patient's emergency department visit, please see his/her documentation. MD Madeline Renee MD 02/05/23 1633 Bed: 38 Expected date: Expected time: Means of arrival: Comments: Room 60 Leah Luna RN 02/05/23 1215 ED provider at bedside for johnathon Rosa Landers RN 02/05/23 1233 documented in this encounter [facility] 01-26-2022 Hospital Discharg Mary Kay Storm PA-C - 01/26/2022 Please take prescribed antibiotics as instructed until complete. Do not stop them early. Use prescribed mouthwash as instructed as well. Continue to take Tylenol and/or naproxen as needed for pain. Apply ice to the swollen area to help with inflammation. Please follow-up closely with your dentist. Return to the ER if symptoms worsen. The following attachments cannot be sent through Care Everywhere.Tooth: Abscessed (Moroccan)documented in this encounter [facility] Work Phone: Evaluation note Diagnosis Dental abscess- Primary Periapical abscess without sinus Dental infection Acute apical periodontitis of pulpal origin documented in this encounter [facility] Work Phone: Evaluation note* Diagnosis Acute ischemic stroke (HCC)- Primary Unspecified cerebral artery occlusion with cerebral infarction Acute ischemic stroke (HCC) Unspecified cerebral artery occlusion with cerebral infarction Elevated troponin Other abnormal blood chemistry Abnormal ECG Nonspecific abnormal electrocardiogram (ECG) (EKG) Cerebral edema (CMS/HCC) (HCC) Cerebral edema Leg edema, right Arterial ischemic stroke, MCA (middle cerebral artery), left, acute (HCC) Unspecified cerebral artery occlusion with cerebral infarction Brain compression (CMS/HCC) (HCC) Compression of brain Cerebral edema (CMS/HCC) (HCC) Cerebral edema Troponin level elevated Other abnormal blood chemistry Cognitive impairment Unspecified persistent mental disorders due to conditions classified elsewhere Debility Unspecified debility Encounter for assessment of decision-making capacity documented in this encounter [facility] note* Diagnosis Chest pain, unspecified type- Primary [facility] Diagnosis Sepsis (HCC)- Primary Sepsis (HCC) Hypokalemia Hypopotassemia SIRS (systemic inflammatory response syndrome) (HCC) Systemic inflammatory response syndrome, unspecified [facility] Diagnosis PEG tube malfunction (CMS/HCC) (HCC)- Primary [facility]* Diagnosis Ischemic stroke (HCC)- Primary Obstructive sleep apnea Obstructive sleep apnea (adult) (pediatric) Projectile vomiting, unspecified whether nausea present [facility] Diagnosis Dysphagia, oropharyngeal phase- Primary [facility]* Diagnosis PEG tube malfunction (CMS/HCC) (HCC)- Primary [facility]* Diagnosis Nausea and vomiting, unspecified vomiting type- Primary S/P percutaneous endoscopic gastrostomy (PEG) tube placement ([facility]) terminal carman current use of anticoagulant On supplemental oxygen therapy Dependence on supplemental oxygen Nausea with vomiting, unspecified Gastrostomy status (HCC) Gastrostomy status prison (current) use of anticoagulants Long-term (current) use of anticoagulants Dependence on supplemental oxygen [facility] Diagnosis Ischemic stroke (HCC)- Primary Atrial thrombus Other ill-defined heart disease Dysphagia as late effect of stroke Nausea with vomiting, unspecified Gastrostomy status ([facility]) Gastrostomy status prison (current) use of anticoagulants Long-term (current) use of anticoagulants Dependence on supplemental oxygen [facility] Diagnosis Benign neoplasm of nasopharynx- Primary Nausea with vomiting, unspecified Gastrostomy status (HCC) Gastrostomy status terminal carman (current) use of anticoagulants Long-term (current) use of anticoagulants Dependence on supplemental oxygen [facility] Diagnosis History of coronary artery bypass graft x 2- Primary Hyperlipidemia, unspecified hyperlipidemia type History of ischemic left MCA stroke Coronary artery disease involving [place] coronary artery of [place] heart without angina pectoris Left atrial thrombus [facility] note[facility] assessment information [facility]WF[facility] Work Phone: Evaluation note* Diagnosis Bilateral impacted cerumen- Primary Impacted cerumen Normal nasopharyngeal exam [facility]* Diagnosis Ischemic stroke (HCC)- Primary Atrial thrombus Other ill-defined heart disease Dysphagia as late effect of stroke Obstructive sleep apnea Obstructive sleep apnea (adult) (pediatric) Aphasia [facility]* Diagnosis PEG (percutaneous endoscopic gastrostomy) adjustment/replacement/removal ([facility])- Primary documented in this encounter [facility] note* Diagnosis Nausea and vomiting, unspecified vomiting type- Primary Fecal impaction (CMS/HCC) (HCC) Other impaction of intestine documented in this encounter [facility] Discharge instructions* Attachments The following attachments cannot be sent through Care Everywhere. * Gastrostomy, Permanent and Temporary Discharge Instructions ([place]) [facility] Attachments The following attachments cannot be sent through Care Everywhere. * Upper GI Endoscopy Discharge Instructions (Moroccan) documented in this [facility] for referral (narrative)* Consultation (Routine) - Authorized Specialty Diagnoses / Procedures Referred By Ondina traore Referred To Contact Cardiology Diagnoses Atrial thrombus Procedures [place] OFFICE/OUTPATIENT [facility] MDM 60 MINUTES Rachael Malhotra APRN - CNP [address] [place] [address] [facility] [address] [place] [address] Referral ID Status Reason Start Date Expiration Date Visits Requested Visits Authorized [id number] Authorized Specialty Services Required 12/21/2023 12/20/2024 1 1 [facility] for referral (narrative)* Consultation (Routine) - Pending Review Specialty Diagnoses / Procedures Referred By Ondina traore Referred To Contact Otolaryngology Diagnoses Benign neoplasm of nasopharynx Procedures [place] OFFICE/OUTPATIENT [facility] MDM 60 MINUTES Omega Flores [address] [place] [address] [facility] Ent [address] [place] [address] Referral ID Status Reason Start Date Expiration Date Visits Requested Visits Authorized [id number] Pending Review Specialty Services Required 12/28/2023 12/27/2024 1 1 [facility] Advance Directives No Advanced Directives Records FoundDocuments on File Type Date Recorded Patient Ob/Gyn Doctor Expl anation ACP-Advance Directive ACP-Power of Roller Skate Repairer Latest Code Status on File Code Status Date Activated Date Inactivated Comments DNR-CCA 02/05/2023 3:20 PM Question Answer Comments ICU transfer: Yes Intubation: No Code Status History Code Status Date Activated Date Inactivated Comments Full Code 02/05/2023 2:12 PM 02/05/2023 3:20 PM Latest Code Status on File Code Status Date Activated Date Inactivated Comments Full Code 02/06/2023 12:25 PM Code Status History Code Status Date Activated Date Inactivated Comments DNR-CCA 02/05/2023 3:20 PM 02/06/2023 12:25 PM Question Answer Comments ICU transfer: Yes Intubation: No Full Code 02/05/2023 2:12 PM 02/05/2023 3:20 PM Latest Code Status on File Code Status Date Activated Date Inactivated Comments Full Code 02/11/2023 8:55 AM Code Status History Code Status Date Activated Date Inactivated Comments DNR-CCA 02/11/2023 8:50 AM 02/11/2023 8:55 AM Question Answer Comments ICU transfer: Yes Intubation: No Full Code 02/06/2023 12:25 PM 02/11/2023 8:50 AM DNR-CCA 02/05/2023 3:20 PM 02/06/2023 12:25 PM Question Answer Comments ICU transfer: Yes Intubation: No Full Code 02/05/2023 2:12 PM 02/05/2023 3:20 PM Latest Code Status on File Code Status Date Activated Date Inactivated Comments Full Code 02/11/2023 8:55 AM 02/26/2023 2:30 PM Code Status History Code Status Date Activated Date Inactivated Comments DNR-CCA 02/11/2023 8:50 AM 02/11/2023 8:55 AM Question Answer Comments ICU transfer: Yes Intubation: No Full Code 02/06/2023 12:25 PM 02/11/2023 8:50 AM DNR-CCA 02/05/2023 3:20 PM 02/06/2023 12:25 PM Question Answer Comments ICU transfer: Yes Intubation: No Full Code 02/05/2023 2:12 PM 02/05/2023 3:20 PM Code Status History Code Status Date Activated Date Inactivated Comments DNR-CCA 02/11/2023 8:50 AM 02/11/2023 8:55 AM Question Answer Comments ICU transfer: Yes Intubation: No Full Code 02/06/2023 12:25 PM 02/11/2023 8:50 AM DNR-CCA 02/05/2023 3:20 PM 02/06/2023 12:25 PM Question Answer Comments ICU transfer: Yes Intubation: No Full Code 02/05/2023 2:12 PM 02/05/2023 3:20 PM Latest Code Status on File Code Status Date Activated Date Inactivated Comments Full Code 03/06/2023 4:31 AM 03/11/2023 8:56 AM Code Status History Code Status Date Activated Date Inactivated Comments Full Code 02/11/2023 8:55 AM 02/26/2023 2:30 PM DNR-CCA 02/11/2023 8:50 AM 02/11/2023 8:55 AM Question Answer Comments ICU transfer: Yes Intubation: No Full Code 02/06/2023 12:25 PM 02/11/2023 8:50 AM DNR-CCA 02/05/2023 3:20 PM 02/06/2023 12:25 PM Question Answer Comments ICU transfer: Yes Intubation: No Code Status History Code Status Date Activated Date Inactivated Comments Full Code 02/11/2023 8:55 AM 02/26/2023 2:30 PM DNR-CCA 02/11/2023 8:50 AM 02/11/2023 8:55 AM Question Answer Comments ICU transfer: Yes Intubation: No Full Code 02/06/2023 12:25 PM 02/11/2023 8:50 AM DNR-CCA 02/05/2023 3:20 PM 02/06/2023 12:25 PM Question Answer Comments ICU transfer: Yes Intubation: No Documents on File Type Date Recorded Patient Ob/Gyn Doctor Expl anation Power of Roller Skate Repairer 04/18/2023 11:10 AM Dura ble Power of Roller Skate Repairer (Eileen Restrepo) Documents on File Type Date Recorded Patient Ob/Gyn Doctor Expl anation Power of Roller Skate Repairer 04/18/2023 11:10 AM Dura ble Power of Roller Skate Repairer (Elieen Restrepo) Latest Code Status on File Code Status Date Activated Date Inactivated Comments Full Code 03/06/2023 4:31 AM 03/11/2023 8:56 AM Code Status History Code Status Date Activated Date Inactivated Comments Full Code 02/11/2023 8:55 AM 02/26/2023 2:30 PM DNR-CCA 02/11/2023 8:50 AM 02/11/2023 8:55 AM Question Answer Comments ICU transfer: Yes Intubation: No Full Code 02/06/2023 12:25 PM 02/11/2023 8:50 AM DNR-CCA 02/05/2023 3:20 PM 02/06/2023 12:25 PM Question Answer Comments ICU transfer: Yes Intubation: No Latest Code Status on File Code Status Date Activated Date Inactivated Comments Full Code 12/28/2023 11:20 AM 12/28/2023 2:36 PM Code Status History Code Status Date Activated Date Inactivated Comments Full Code 03/06/2023 4:31 AM 03/11/2023 8:56 AM Full Code 02/11/2023 8:55 AM 02/26/2023 2:30 PM DNR-CCA 02/11/2023 8:50 AM 02/11/2023 8:55 AM Question Answer Comments ICU transfer: Yes Intubation: No Full Code 02/06/2023 12:25 PM 02/11/2023 8:50 AM Latest Code Status on File Code Status Date Activated Date Inactivated Comments Full Code 12/28/2023 11:20 AM 12/28/2023 2:36 PM Code Status History Code Status Date Activated Date Inactivated Comments Full Code 03/06/2023 4:31 AM 03/11/2023 8:56 AM Full Code 02/11/2023 8:55 AM 02/26/2023 2:30 PM DNR-CCA 02/11/2023 8:50 AM 02/11/2023 8:55 AM Question Answer Comments ICU transfer: Yes Intubation: No Full Code 02/06/2023 12:25 PM 02/11/2023 8:50 AM Code Status History Code Status Date Activated Date Inactivated Comments Full Code 03/06/2023 4:31 AM 03/11/2023 8:56 AM Full Code 02/11/2023 8:55 AM 02/26/2023 2:30 PM DNR-CCA 02/11/2023 8:50 AM 02/11/2023 8:55 AM Question Answer Comments ICU transfer: Yes Intubation: No Full Code 02/06/2023 12:25 PM 02/11/2023 8:50 AM Date Activated Date Inactivated Comments 12/28/2023 11:20 AM 12/28/2023 2:36 PM Date Activated Date Inactivated Comments 03/06/2023 4:31 AM 03/11/2023 8:56 AM Date Activated Date Inactivated Comments 02/11/2023 8:55 AM 02/26/2023 2:30 PM Date Activated Date Inactivated Comments 02/11/2023 8:50 AM 02/11/2023 8:55 AM Question Answer Comments ICU transfer: Yes Intubation: No Date Activated Date Inactivated Comments 02/06/2023 12:25 PM 02/11/2023 8:50 AM Date Activated Date Inactivated Comments 12/28/2023 11:20 AM 12/28/2023 2:36 PM Date Activated Date Inactivated Comments 03/06/2023 4:31 AM 03/11/2023 8:56 AM Date Activated Date Inactivated Comments 02/11/2023 8:55 AM 02/26/2023 2:30 PM Date Activated Date Inactivated Comments 02/11/2023 8:50 AM 02/11/2023 8:55 AM Question Answer Comments ICU transfer: Yes Intubation: No Date Activated Date Inactivated Comments 02/06/2023 12:25 PM 02/11/2023 8:50 AM Summary Purpose Family History No Family History Records FoundNo Family History Records FoundNo Family History Records FoundNo Family History Records Found Chief Complaint and Reason for Visit Chief Complaint LABWORK Chief Complaint LABWORK SENIOR CARE LAB WORK Reason for Referral Specialty Diagnoses / Procedures Referred By Ondina traore Referred To Contact Sleep Medicine Diagnoses Obstructive sleep apnea Procedures Home sleep test Rachael Malhotra, SOCCER REFEREE - ETHYLBENZENE CRACKING SUPERVISOR [address] [place] [address] Referral ID Status Reason Start Date Expiration Date V isits Requested Visits Authorized [id number] Pending Review 06/21/2024 06/16/2025 1 1 Additional Source Comments Reason for Visit (unrecogniz ed section and content) Reason Comments Dental Pain Pt started having de ntal pain rt lower tuesday. Went to dentist and sent here for ATB b/c too much infection to repair. Specialty Diagnoses / Procedures Referred By Ondina traore Referred To Contact Diagnoses Acute ischemic stroke (HCC) Procedures . Sonia Pagan MD [address] [address] [facility] [address] [place] [address] Referral ID Status Reason Start Date Expiration Date Visits Re quested Visits Authorized [id number] 1 1 Reason Comments Altered Mental Status Patient arrives fr om squad from home, patient last seen by neighbor , family went to go check on patient and could not get into the home, patient was found on bathroom floor surrounded by vomit and not able to have conversation. Patient initial NIH is 23 in treatment room. Specialty Diagnoses / Procedures Referred By Ondina traore Referred To Contact Diagnoses Acute ischemic stroke (HCC) Procedures . Sonia Pagan MD [address] [address] [facility] [address] [place] [address] Reason Comments Chest Pain Reason Comments Vomiting Patient arrives with EMS from [facility], per ems patient was seen last night here for chest pain and discharged, staff complains of patient having episodes of vomiting all day and are concerned for aspiration pneumonia. Patient has hx of stroke 2 weeks ago and is non verbal and is at baseline mentality per ems. Fever Per family at bedsid e the patient had a peg tube placed for tube feeds about 2 weeks ago, patient "thumbs up" when this RN asked him if the tube feeds have been hurting or burning during use, patient has 102.8 fever and is tachy in thee 130s Specialty Diagnoses / Procedures Referred By Ondina traore Referred To Contact Diagnoses Sepsis (HCC) Procedures A41.9 Burke Faith MD [address] [place] [address] [facility] [address] Med Surg [address] [place] [address] Referral ID Status Reason Start Date Expiration Date Visits Re quested Visits Authorized [id number] 1 1 Reason Comments Peg tube problems Pt is from [facility] for peg tube replacement. Per transport it is cracked. Pt's neuro baseline is not oriented to year or month. Reason Comments Follow-up Reason Comments PG TUBE REPLACEMENT Patient arrives to E D via EMS from SNF after PEG tube was accidentally removed from staff last evening. Unknown size, as the nurse threw away the tube. 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 No signs of distress noted on arrival. Reason Comments New Patient Nausea Vomiting Specialty Diagnoses / Procedures Referred By Ondina traore Referred To Contact Gastroenterology Diagnoses nausea and vomiting Procedures consultation Kelsey Stevens [address] [place] [address] [facility] [address] [place] [address] Referral ID Status Reason Start Date Expiration Date Visits Re quested Visits Authorized [id number] Closed 10/06/2023 10/05/2024 1 1 Reason Onset Date Comments Insurance issues 12/07/2023 Reason Onset Date Comments Appointment Request 07/15/2023 telehealth visit 07/15/2023 Reason Comments Follow-up Stroke Specialty Diagnoses / Procedures Referred By Ondina traore Referred To Contact Diagnoses Nausea with vomiting, unspecified Gastrostomy status (HCC) terminal carman (current) use of anticoagulants Dependence on supplemental oxygen Nausea with vomiting, unspecified [R11.2] 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] prison (current) use of anticoagulants [Z79.01] Dependence on supplemental oxygen [Z99.81] Procedures [facility] ESOPHAGOGASTRODUODENOSCOPY TRANSORAL DIAGNOSTIC ESOPHAGOGASTRODUODENOSCOPY Omega Flores [address] [place] [address] [facility] [address] [place] [address] Referral ID Status Reason Start Date Expiration Date Visits Re quested Visits Authorized [id number] 1 1 Reason Comments New Patient Ref from Neuro, f\\u Atrial thrombus Reason Onset Date Comments Test Scheduling 02/19/2024 Reason Comments New Patient EGD Specialty Diagnoses / Procedures Referred By nOdina traore Referred To Contact Otolaryngology Diagnoses Benign neoplasm of nasopharynx Procedures NH OFFICE/OUTPATIENT NEW HIGH MDM 60 MINUTES Omega Flores MD [address] [place] [address] [facility] Ent [address] [place] [address] Referral ID Status Reason Start Date Expiration Date Visits Requested Visits Authorized [id number] Pending Review Specialty Services Required 12/28/2023 12/27/2024 1 1 Reason Onset Date Comments Sleep Study 09/14/2024 Unable to contac t Reason Comments Feeding Tube Feeding tube displac ed Reason Comments Vomiting G-tube; g-tube plast ic bumper not flush against skin upon arrival. Pt denying nausea at this time. Ordered Prescriptions (unrec ognized section and content) Prescription Sig Dispensed Refills Start Date End Da te chlorhexidine (PERIDEX) 0.12 % solution Take 15 mLs by mouth 2 times daily for 14 days 420 mL 0 01/26/2022 02/09/2022 penicillin v potassium (VEETID) 500 MG tablet Take 1 tablet by mouth 4 times daily for 10 days 40 tablet 0 01/26/2022 02/05/2022 Scheduled Active and Recently Administ ered Medications (unrecognized section and content) Medication Order 01/24/2022 01/25/2022 01/26/2022 0.9 % sodium chloride bolus (COMPLETED) 1,000 mL, IntraVENous, at 495.9 mL/hr, Administer over 121 Minutes, ONCE, On Tue01/26/22 at 1445, For 1 dose 1706 (New Bag - Prov ider: Akilah Biggs RN)1831 (Stopped - Provider: Akilah Biggs RN) penicillin G potassium 5 Million Units in dextrose 5 % 100 mL IVPB (mini-bag) 5 Million Units, IntraVENous, EVERY 4 HOURS, First dose on Tue01/26/22 at 1800, Until Discontinued, Antimicrobial Indications: Head and Neck Infection 1752 (New Bag - Prov ider: Akilah Biggs RN)1830 (Stopped - Provider: Akilah Biggs RN)2200 (Due) Scheduled Medication Order 02/24/2023 02/25/2023 02/26/2023 amLODIPine (Norvasc) tablet 10 mg 10 mg, Oral, Daily, First dose (after last modification) on Tue02/10/23 at 0900 0936 (Given - Provider: Lian Benitez RN) 0845 (Given - Provider: Tony Richardson, ROBERT) 0823 (Given - Provider: Sweetie Krause, ROBERT) aspirin chewable tablet 81 mg 81 mg, Per G Tube, Daily, First dose on Tue02/20/23 at 1145 0936 (Given - Provider: Lian Benitez RN) 0845 (Given - Provider: Tony Richardson, ROBERT) 0823 (Given - Provider: Sweetie Krause, ROBERT) atorvastatin (Lipitor) tablet 40 mg 40 mg, Per G Tube, Daily, First dose on Tue02/06/23 at 2100 2134 (Given - Provider: Minoo Nieto RN) 2042 (Given - Provider: Tayla Mcallister RN) bisacodyl (Dulcolax) suppository 10 mg 10 mg, Rectal, Daily, First dose on Tue02/09/23 at 1330 0900 (Not Given - Provider: Lian Benitez RN - Reason: Other - Comment: loose stool) 0900 (Not Given - Provider: Tony Richardson RN - Reason: Patient/family refused - Comment: refused/multiple loose stools) 0900 (Not Given - Provider: Sweetie Krause, ROBERT - Reason: Contraindicated) carvedilol (Coreg) tablet 25 mg 25 mg, Per G Tube, 2 times daily with meals, First dose (after last modification) on Tue02/08/23 at 1700 0936 (Given - Provider: Lian Benitez RN)1827 (Given - Provider: Lian Benitez RN) 0845 (Given - Provider: Tony Richardson, ROBERT)1720 (Given - Provider: Jasmyn Redmond RN) 0823 (Given - Provider: Sweetie Krause, ROBERT) furosemide (Lasix) injection 40 mg (COMPLETED) 40 mg, IntraVENous, Once, On Tue02/24/23 at 1045, For 1 dose 1226 (Given - Provider: Lian Benitez RN)1230 (Not Given - Provider: Lian Benitez RN - Reason: Other - Comment: see MAR for order) heparin injection 5,000 Units 5,000 Units, SubCUTAneous, Every 8 hours scheduled (3 times per day), First dose on Tue02/07/23 at 1400 0632 (Given - Provider: Minoo Nieto, RN)1228 (Given - Provider: Lian Benitez, ROBERT)2134 (Given - Provider: Minoo Nieto RN) 0554 (Given - Provider: Laila Abrams RN)1519 (Given - Provider: Tony Richardson, RN)2200 (Given - Provider: Tayla Mcallister, ROBERT) 0823 (Given - Provider: Sweetie Krause RN)1400 (Canceled Entry - Provider: Automatic Discharge Provider - Comment: Automatically canceled at discontinue of medication order) ipratropium-albuterol (Duo-Neb) 0.5-2.5 mg/3 mL nebulizer solution 3 mL 3 mL, Nebulization, 3 times daily, First dose on Tue02/24/23 at 1045 1247 (Given - Provider: Sharita Garcia RCP)2057 (Given - Provider: Miguel Haley RCP) 0856 (Given - Provider: Qasim Beaver RCP)1305 (Given - Provider: Qasim Beaver RCP)2130 (Given - Provider: PERRY BOYD) 0830 (Given - Provider: Sherie Patterson RCP)1400 (Canceled Entry - Provider: Automatic Discharge Provider - Comment: Automatically canceled at discontinue of medication order) lidocaine (Uro-Jet) 2 % gel Topical, Once, On Tue02/09/23 at 1215, For 1 dose, Draw up and instill 0.5 mL into the nares 5 minutes before inserting tube. If oxymetazoline is also ordered, instill the Lidocaine jelly after instilling the oxymetazoline spray. nystatin (Mycostatin) [id number] UNIT/ML suspension 500,000 Units 500,000 Units (5 mL), Swish & Spit, 3 times daily, First dose on Tue02/15/23 at 1030 0936 (Given - Provider: Lian Benitez RN)1228 (Given - Provider: Lian Benitez, ROBERT)2133 (Given - Provider: Minoo Nieto RN) 08 (Given - Provider: Tony Richardson, RN)151 (Given - Provider: Tony Richardson, RN)2041 (Not Given - Provider: Tayla Mcallister, RN - Reason: Patient/family refused) 08 (Given - Provider: Sweetie Krause, RN)1400 (Canceled Entry - Provider: Automatic Discharge Provider - Comment: Automatically canceled at discontinue of medication order) pantoprazole (ProtoNix) EC tablet 40 mg(Linked Group 1) 40 mg, Oral, Nightly, First dose on 02/05/23 at 2100, Do not crush, chew, or split. 2133 (See Alternative - Provider: Minoo Nieto RN) 2041 (Given - Provider: Tayla Mcallister, RN) pantoprazole (ProtoNix) injection 40 mg(Linked Group 1) 40 mg, IntraVENous, Administer over 2 Minutes, Nightly, First dose on 02/05/23 at 2100, Give only if unable to tolerate po. 2133 (Given - Provider: Minoo Nieto, ROBERT) 2041 (See Alternative - Provider: Tayla Mcallister RN) polyethylene glycol (PEG) 3350 (Miralax) packet 17 g 17 g, Oral, 2 times daily, First dose (after last modification) on Tue02/13/23 at 0900 0900 (Not Given - Provider: Lian Benitez RN - Reason: Other - Comment: loose stool)2100 (Not Given - Provider: Minoo Nieto RN - Reason: Other - Comment: Patient had multiple loose stools today) 09 (Not Given - Provider: Tony Richardson, ROBERT - Reason: Patient/family refused - Comment: refused/multiple loose stools)2041 (Given - Provider: Tayla Mcallister, RN) 822 (Given - Provider: Sweetie Krause, ROBERT) senna-docusate sodium (Senokot-S) 8.6-50 MG tablet 2 tablet 2 tablet, Oral, 2 times daily, First dose on Tue02/09/23 at 1400 0900 (Not Given - Provider: Lian Benitez RN - Reason: Other - Comment: loose stool)2100 (Not Given - Provider: Minoo Nieto RN - Reason: Other - Comment: Patient had multiple loose stools today) 0900 (Not Given - Provider: Tony Richardson RN - Reason: Patient/family refused - Comment: refused/multiple loose stools)2042 (Given - Provider: Tayla Mcallister RN) 0823 (Given - Provider: Sweetie Krause RN) sodium chloride 0.9% (NS) flush 5-40 mL 5-40 mL, IntraVENous, Every 12 hours, First dose on 02/05/23 at 1225, For Line Patency: Peripheral IV = 5 mL; Midline or Central Line = 10 mL/lumen. If following IV push medication, administer flush at same rate as the IV push. Flush volume is determined by type of infusion therapy being given. For non-viscous solutions use: Peripheral IV = 5 mL Midline or Central Line = 10 mL/lumen For viscous solutions (i.e. blood components, parenteral nutrition, contrast media, or after obtaining blood sample) use: Peripheral IV = 10 mL Midline or Central Line = 20 mL/lumen 0039 (Given - Provider: Minoo Nieto RN)0937 (Not Given - Provider: Lian Benitez RN - Reason: Other) 0102 (Given - Provider: Minoo Nieto RN)1225 (Not Given - Provider: Tony Richardson RN - Reason: IV Fluids Infusing) 0025 (Given - Provider: Tayla Mcallister RN)1225 (Canceled Entry - Provider: Automatic Discharge Provider - Comment: Automatically canceled at discontinue of medication order) PRN Medication Order 02/24/2023 02/25/2023 02/26/2023 acetaminophen (Tylenol) suppository 650 mg(Linked Group 2) 650 mg, Rectal, Every 6 hours PRN, mild pain (1-3), fever, For temp greater than 100.4 F (38 C), Starting on 02/05/23 at 1404, Administer if oral route cannot be used. Maximum dose of acetaminophen is 4000 mg from all sources in 24 hours. acetaminophen (Tylenol) tablet 650 mg(Linked Group 2) 650 mg, Oral, Every 6 hours PRN, mild pain (1-3), fever, For temp greater than 100.4 F (38 C), Starting on 02/05/23 at 1404, Maximum dose of acetaminophen is 4000 mg from all sources in 24 hours. bisacodyl (Dulcolax) suppository 10 mg 10 mg, Rectal, Daily PRN, constipation, Starting on 02/05/23 at 1404, 1st line for treatment of constipation - give scheduled if no bowel movement in past 24 hours. hydrALAZINE (Apresoline) injection 20 mg 20 mg, IntraVENous, Every 4 hours PRN, SBP > 160, Starting on Jazmin 02/10/23 at 1253 HYDROcodone kirsten-chlorphe kirsten ER (Tussionex Pennkinetic) 10-8 MG/5ML ER suspension 5 mL 5 mL, Per G Tube, Every 12 hours PRN, cough, congestion, rhinitis, Starting on 02/20/23 at 1136, Do not administer more often than every 12 hours. Shake well. iopamidol (Isovue-300) 61 % injection 25 mL 25 mL, Other, IMG once PRN, contrast, Starting on 02/16/23 at 1539, For 1 dose labetalol (Normodyne,Trandate) injection 20 mg 20 mg, IntraVENous, Every 4 hours PRN, SBP > 160, second line, Starting on Jazmin 02/10/23 at 1253 melatonin tablet 5 mg 5 mg, Oral, Nightly PRN, sleep, Starting on 02/08/23 at 0417 ondansetron (Zofran) injection 4 mg(Linked Group 3) 4 mg, IntraVENous, Every 6 hours PRN, nausea, vomiting, Starting on 02/05/23 at 1404, 1st Line. Give IV if patient is unable to take orally. If inadequate response within 60 minutes, proceed to next-line agent or contact provider if no further options ordered. ondansetron ODT (Zofran-ODT) disintegrating tablet 4 mg(Linked Group 3) 4 mg, Oral, Every 8 hours PRN, nausea, vomiting, Starting on 02/05/23 at 1404, 1st Line. If inadequate response within 60 minutes, proceed to next-line agent or contact provider if no further options ordered. Patient should allow tablet to dissolve on tongue. Do not remove from blister pack until just before administering. polyvinyl alcohol (Liquifilm Tears) 1.4 % ophthalmic solution Both Eyes, As needed, dry eyes, Starting on 02/12/23 at 2026 sodium chloride 0.9 % infusion 5-250 mL/hr, IntraVENous, PRN, if patient receiving piggyback infusions and maintenance fluids are not ordered OR KVO fluids to protect IV site / prevent frequent line interruptions / long duration, Starting on 02/05/23 at 1220, For piggyback infusion, administer at same rate as piggyback for a total of 25 mL. Enter 25 mL into dose field and piggyback rate into rate field of order. If piggyback is infusing at a rate less than 100 mL/hr, enter 25 mL into dose field and 100 mL/hr into rate field of order. For KVO fluids, enter rate of 20 mL/hr or less into rate field of order. sodium chloride 0.9% (NS) flush 5-40 mL 5-40 mL, IntraVENous, PRN, line care, After every IV line use, Starting on 02/05/23 at 1220, For Line Patency: Peripheral IV = 5 mL; Midline or Central Line = 10 mL/lumen. If following IV push medication, administer flush at same rate as the IV push. Flush volume is determined by type of infusion therapy being given. For non-viscous solutions use: Peripheral IV = 5 mL Midline or Central Line = 10 mL/lumen For viscous solutions (i.e. blood components, parenteral nutrition, contrast media, or after obtaining blood sample) use: Peripheral IV = 10 mL Midline or Central Line = 20 mL/lumen Linked Groups Order Group 1: pantoprazole (ProtoNix) EC tablet 40 mgJump to med 40 mg, Oral, Nightly, First dose on 02/05/23 at 2100
Do not crush, chew, or split.
Or pantoprazole (ProtoNix) injection 40 mgJump to med 40 mg, IntraVENous, Administer over 2 Minutes, Nightly, First dose on 02/05/23 at 2100
Give only if unable to tolerate po.
Group 2: acetaminophen (Tylenol) tablet 650 mgJump to med 650 mg, Oral, Every 6 hours PRN, mild pain (1-3), fever, For temp greater than 100.4 F (38 C), Starting on 02/05/23 at 1404
Maximum dose of acetaminophen is 4000 mg from all sources in 24 hours.
Or acetaminophen (Tylenol) suppository 650 mgJump to med 650 mg, Rectal, Every 6 hours PRN, mild pain (1-3), fever, For temp greater than 100.4 F (38 C), Starting on 02/05/23 at 1404
Administer if oral route cannot be used. Maximum dose of acetaminophen is 4000 mg from all sources in 24 hours.
Group 3: ondansetron ODT (Zofran-ODT) disintegrating tablet 4 mgJump to med 4 mg, Oral, Every 8 hours PRN, nausea, vomiting, Starting on 02/05/23 at 1404
1st Line. If inadequate response within 60 minutes, proceed to next-line agent or contact provider if no further options ordered. Patient should allow tablet to dissolve on tongue. Do not remove from blister pack until just before administering.
Or ondansetron (Zofran) injection 4 mgJump to med 4 mg, IntraVENous, Every 6 hours PRN, nausea, vomiting, Starting on 02/05/23 at 1404
1st Line. Give IV if patient is unable to take orally. If inadequate response within 60 minutes, proceed to next-line agent or contact provider if no further options ordered.
Scheduled Medication Order 03/03/2023 03/04/2023 03/05/2023 famotidine (Pepcid) injection 20 mg (COMPLETED) 20 mg, IntraVENous, Administer over 2 Minutes, Once, On Tue03/04/23 at 2225, For 1 dose, IV Push over minimum of 2 minutes - Dilute with 10 mL NS 2239 (Given - Provider: Kendall Sorenson RN) PRN Medication Order 03/03/2023 03/04/2023 03/05/2023 iopamidol (Isovue-370) 76 % injection 75 mL (COMPLETED) 75 mL, IntraVENous, IMG once PRN, contrast, Starting on Tue03/04/23 at 2002, For 1 dose 2002 (Given - Provider: DAYTON Gonzalez) Scheduled Medication Order 03/08/2023 03/09/2023 03/10/2023 amLODIPine (Norvasc) tablet 10 mg 10 mg, Oral, Daily, First dose on 03/06/23 at 0900 0925 (Given - Provider: Bibi Patricia RN) 1010 (Given - Provider: Basia Morton RN) 0918 (Given - Provider: Krystle Pierce RN) aspirin chewable tablet 81 mg 81 mg, Per G Tube, Daily, First dose on 03/06/23 at 0900 0925 (Given - Provider: Bibi Patricia RN) 1010 (Given - Provider: Basia Morton RN) 0918 (Given - Provider: Krystle Pierce RN) atorvastatin (Lipitor) tablet 40 mg 40 mg, Per G Tube, Daily, First dose on 03/06/23 at 0900 0925 (Given - Provider: Bibi Patricia RN) 1010 (Given - Provider: Basia Morton RN) 0918 (Given - Provider: Krystle Pierce RN) carvedilol (Coreg) tablet 25 mg 25 mg, Per G Tube, 2 times daily with meals, First dose on 03/06/23 at 0800 0925 (Given - Provider: Bibi Patricia RN)1716 (Given - Provider: Bibi Patricia RN) 1010 (Given - Provider: Basia Morton RN)1735 (Given - Provider: Basia Morton RN) 0917 (Given - Provider: Krystle Pierce RN)1736 (Given - Provider: Krystle Pierce RN) enoxaparin (Lovenox) syringe 40 mg 40 mg, SubCUTAneous, Every 24 hours scheduled (Daily), First dose on 03/06/23 at 0900, Indication of Use: Prophylaxis-DVT/PE, Indications: Prophylaxis of Venous Thromboembolism 09 (Given - Provider: Bibi Patricia RN) 1011 (Given - Provider: Basia Morton RN) 0859 (Given - Provider: Krystle Pierce RN) ipratropium-albuterol (Duo-Neb) 0.5-2.5 mg/3 mL nebulizer solution 3 mL 3 mL, Nebulization, 3 times daily, First dose on 03/06/23 at 0800 0812 (Given - Provider: Qasim Beaver RCP)1152 (Given - Provider: Qasim Beaver RCP)2107 (Given - Provider: Mavis Velez [facility]) 0857 (Given - Provider: Caitlin Ye [facility])1259 (Given - Provider: Felicita Murrieta SHIFT MANAGER)204 (Given - Provider: KAREN HAYNES) 0822 (Given - Provider: Iliana Valencia SHIFT MANAGER)1205 (Given - Provider: Iliana Valencia SHIFT MANAGER)2045 (Given - Provider: MIGUEL CHILEL) pantoprazole (ProtoNix) injection 40 mg(Linked Group 1) 40 mg, IntraVENous, Administer over 2 Minutes, 2 times daily, First dose (after last modification) on 03/06/23 at 2100, Reconstitute with 10 mL 0.9 % sodium chloride and administer over at least 2 minutes. 0926 (Given - Provider: Bibi Patricia RN)2036 (Given - Provider: Tarsha Art RN) 1011 (Given - Provider: Basia Morton, ROBERT)2114 (Given - Provider: Yaya Arevalo, ROBERT) 09 (Given - Provider: Krystle Pierce RN)2055 (Given - Provider: Yaya Arevalo RN) piperacillin-tazobactam (Zosyn) IVPB 3,375 mg (CANCELED) 3,375 mg, IntraVENous, at 12.5 mL/hr, Administer over 4 Hours, Every 8 hours, First dose on 03/06/23 at 0230, premix bag, Suspected Indication (Select all that apply): Sepsis of Unknown Etiology 0209 (New Bag - Provider: Tarsha Art RN)0609 (Stopped - Provider: Tarsha Art RN)0932 (New Bag - Provider: Bibi Patricia RN)1332 (Stopped - Provider: Bibi Patricia RN)1830 (New Bag - Provider: Bibi Patricia RN)2230 (Stopped - Provider: Tarsha Art RN) 0235 (New Bag - Provider: Tarsha Art RN)0635 (Stopped - Provider: Tarsha Art RN)1011 (New Bag - Provider: Basia Morton RN)1411 (Stopped - Provider: Basia Morton RN)1735 (New Bag - Provider: Basia Morton RN)2135 (Stopped - Provider: Yaya Arevalo RN) 0243 (New Bag - Provider: Yaya Arevalo RN)0643 (Stopped - Provider: Yaya Arevalo RN)1053 (New Bag - Provider: Krystle Pierce RN)1453 (Stopped - Provider: Krystle Pierce RN) potassium chloride (Klor-Con) packet 40 mEq (COMPLETED) 40 mEq, Per G Tube, Once, On Tue03/08/23 at 1100, For 1 dose, Dissolve each packet in 4 ounces of water = 5 mEq per 1 oz fluid., Indications: Hypokalemia 1201 (Given - Provider: Bibi Patricia RN) potassium chloride (Klor-Con) packet 40 mEq (COMPLETED) 40 mEq, Per G Tube, Once, On Tue03/09/23 at 0845, For 1 dose, Dissolve each packet in 4 ounces of water = 5 mEq per 1 oz fluid., Indications: Hypokalemia 1010 (Given - Provider: Basia Morton RN) potassium chloride (Klor-Con) packet 40 mEq (COMPLETED) 40 mEq, Per G Tube, Once, On Jazmin 03/10/23 at 0745, For 1 dose, Dissolve each packet in 4 ounces of water = 5 mEq per 1 oz fluid., Indications: Hypokalemia 0918 (Given - Provider: Krystle Pierce RN) sodium chloride (PF) 0.9 % flush 10 mL(Linked Group 1) 10 mL, IntraVENous, 2 times daily, First dose (after last modification) on Tue03/06/23 at 2100, To be use to reconstitute pantoprazole (ProtoNIX) Reconstitute each 40 mg vial of pantoprazole (ProtoNIX) with 10 mL of normal saline. 0926 (Given - Provider: Bibi Patricia RN)2037 (Given - Provider: Tarsha Art RN) 1011 (Given - Provider: Basia Morton RN)2115 (Given - Provider: Yaya Arevalo RN) 916 (Given - Provider: Krystle Pierce RN)2055 (Given - Provider: Yaya Arevalo RN) PRN Medication Order 03/08/2023 03/09/2023 03/10/2023 acetaminophen (Tylenol) suppository 650 mg(Linked Group 2) 650 mg, Rectal, Every 6 hours PRN, mild pain (1-3), fever, For temp greater than 100.4 F (38 C), Starting on 03/06/23 at 0431, Administer if oral route cannot be used. Maximum dose of acetaminophen is 4000 mg from all sources in 24 hours. 2037 (See Alternative - Provider: Tarsha Art RN) acetaminophen (Tylenol) tablet 650 mg(Linked Group 2) 650 mg, Oral, Every 6 hours PRN, mild pain (1-3), fever, For temp greater than 100.4 F (38 C), Starting on 03/06/23 at 0431, Maximum dose of acetaminophen is 4000 mg from all sources in 24 hours. 2037 (Given - Provider: Tarsha Art RN) melatonin tablet 5 mg 5 mg, Oral, Nightly PRN, sleep, Starting on 03/06/23 at 0431 2036 (Given - Provider: Tarsha Art RN) ondansetron (Zofran) injection 4 mg(Linked Group 3) 4 mg, IntraVENous, Every 6 hours PRN, nausea, vomiting, Starting on 03/06/23 at 0431, 1st Line. Give IV if patient is unable to take orally. If inadequate response within 60 minutes, proceed to next-line agent or contact provider if no further options ordered. ondansetron ODT (Zofran-ODT) disintegrating tablet 4 mg(Linked Group 3) 4 mg, Oral, Every 8 hours PRN, nausea, vomiting, Starting on 03/06/23 at 0431, 1st Line. If inadequate response within 60 minutes, proceed to next-line agent or contact provider if no further options ordered. Patient should allow tablet to dissolve on tongue. Do not remove from blister pack until just before administering. oxyCODONE (Roxicodone) immediate release tablet 5 mg 5 mg, Per G Tube, Every 6 hours PRN, moderate pain (4-6), severe pain (7-10), Starting on Mon 1/23 at 2016 2037 (Given - Provider: Tarsha Art RN) polyethylene glycol (PEG) 3350 (Miralax) packet 17 g 17 g, Oral, Daily PRN, constipation, Starting on 03/06/23 at 0431, 1st line for treatment of constipation - give scheduled if no bowel movement in past 24 hours. Linked Groups Order Group 1: pantoprazole (ProtoNix) injection 40 mgJump to med 40 mg, IntraVENous, Administer over 2 Minutes, 2 times daily, First dose (after last modification) on 03/06/23 at 2100
Reconstitute with 10 mL 0.9 % sodium chloride and administer over at least 2 minutes.
And sodium chloride (PF) 0.9 % flush 10 mLJump to med 10 mL, IntraVENous, 2 times daily, First dose (after last modification) on 03/06/23 at 2100
To be use to reconstitute pantoprazole (ProtoNIX) Reconstitute each 40 mg vial of pantoprazole (ProtoNIX) with 10 mL of normal saline.
Group 2: acetaminophen (Tylenol) tablet 650 mgJump to med 650 mg, Oral, Every 6 hours PRN, mild pain (1-3), fever, For temp greater than 100.4 F (38 C), Starting on 03/06/23 at 0431
Maximum dose of acetaminophen is 4000 mg from all sources in 24 hours.
Or acetaminophen (Tylenol) suppository 650 mgJump to med 650 mg, Rectal, Every 6 hours PRN, mild pain (1-3), fever, For temp greater than 100.4 F (38 C), Starting on 03/06/23 at 0431
Administer if oral route cannot be used. Maximum dose of acetaminophen is 4000 mg from all sources in 24 hours.
Group 3: ondansetron ODT (Zofran-ODT) disintegrating tablet 4 mgJump to med 4 mg, Oral, Every 8 hours PRN, nausea, vomiting, Starting on 03/06/23 at 0431
1st Line. If inadequate response within 60 minutes, proceed to next-line agent or contact provider if no further options ordered. Patient should allow tablet to dissolve on tongue. Do not remove from blister pack until just before administering.
Or ondansetron (Zofran) injection 4 mgJump to med 4 mg, IntraVENous, Every 6 hours PRN, nausea, vomiting, Starting on 03/06/23 at 0431
1st Line. Give IV if patient is unable to take orally. If inadequate response within 60 minutes, proceed to next-line agent or contact provider if no further options ordered.
Scheduled Medication Order 04/09/2023 04/10/2023 04/11/2023 diatrizoate meglumine-sodium (Gastrografin) 66-10 % solution 60 mL (COMPLETED) 60 mL, Oral, Once, On 04/11/23 at 0340, For 1 dose 0413 (Given - Provid er: Denny Wetzel RN) Scheduled Medication Order 11/01/2023 11/02/2023 11/03/2023 diatrizoate meglumine-sodium (Gastrografin) 66-10 % solution 30 mL 30 mL, Oral, Once, On Jazmin 11/03/23 at 0955, For 1 dose, PEG tube placement 0955 (Canceled Entry - Provider: Automatic Discharge Provider - Comment: Automatically canceled at discontinue of medication order) Scheduled Medication Order 12/26/2023 12/27/2023 12/28/2023 sodium chloride 0.9% (NS) flush 10 mL 10 mL, IntraVENous, Every 12 hours scheduled (2 times per day), First dose on Tue12/28/23 at 1130, Preprocedure 1130 (Canceled Entry - Provider: Automatic Discharge Provider - Comment: Automatically canceled at discontinue of medication order) PRN Medication Order 12/26/2023 12/27/2023 12/28/2023 sodium chloride 0.9 % infusion 5-250 mL/hr, IntraVENous, PRN, if patient receiving piggyback infusions and maintenance fluids are not ordered OR KVO fluids to protect IV site / prevent frequent line interruptions/ long duration, Starting on Tue12/28/23 at 1120, Preprocedure, For piggyback infusion, administer at same rate as piggyback for a total of 25 mL. Enter 25 mL into dose field and piggyback rate into rate field of order. If piggyback is infusing at a rate less than 100 mL/hr, enter 25 mL into dose field and 100 mL/hr into rate field of order. For KVO fluids, enter rate of 20 mL/hr or less into rate field of order. 1121 (New Bag - Prov ider: Angeli Jose RN)1135 (Continued by Anesthesia - Provider: Arcadio Stkoes CRNA)1147 (Anesthesia Volume Adjustment - Provider: Arcadio Stokes CRNA)1148 (Anesthesia Volume Adjustment - Provider: Arcadio Stokes CRNA) sodium chloride 0.9% (NS) flush 10 mL 10 mL, IntraVENous, PRN, line care, Starting on Tue12/28/23 at 1120, Preprocedure, After every IV line use Scheduled Medication Order 03/09/2025 03/10/2025 03/11/2025 diatrizoate meglumine-sodium (Gastrografin) 66-10 % solution 30 mL (COMPLETED) 30 mL, Oral, Once, On Tue03/11/25 at 1250, For 1 dose, Inject into gastrostomy tube at time of XR to confirm placement 1250 (Given - Provid er: Winnie Lopez RN - Comment: Given by [employer]) (unrecognized sect ion and content) No Status Records FoundNo Status Records FoundNo Status Records FoundNo Status Records Found INFORMATION SOURCE (unrecogn ized section and content) DATE CREATED AUTHOR 01/27/2022 [facility] DATE CREATED AUTHOR AUTHOR'S ORGANIZ ATION 01/29/2022 [facility] DATE CREATED AUTHOR AUTHOR'S ORGANIZ ATION 03/01/2025 [facility] DATE CREATED AUTHOR AUTHOR'S ORGANIZ ATION 03/19/2025 [facility] Care Teams (unrecognized sec tion and content) C D Still Operator Relationship Specialty Start Date End Date Teodoro Cameron MD [address] [place] [address] PCP - General Geriatric Medicine 03/05/23 C D Still Operator Relationship Specialty Start Date End Date Teodoro Cameron MD [address] [place] [address] PCP - General Geriatric Medicine 03/05/23 C D Still Operator Relationship Specialty Start Date End Date Teodoro Cameron MD [address] [place] [address] PCP - General Geriatric Medicine 03/05/23 C D Still Operator Relationship Specialty Start Date End [facility] [address] [place] [address] PCP - General Geriatric Medicine 03/05/23 C D Still Operator Relationship Specialty Start Date End Date [facility] [address] [place] [address] PCP - General Geriatric Medicine 03/05/23 C D Still Operator Relationship Specialty Start Date End [facility] [address] [place] [address] PCP - General Geriatric Medicine 03/05/23 C D Still Operator Relationship Specialty Start Date End [facility] [address] [place] [address] PCP - General Geriatric Medicine 03/05/23 C D Still Operator Relationship Specialty Start Date End [facility] [address] [place] [address] PCP - General Geriatric Medicine 03/05/23 C D Still Operator Relationship Specialty Start Date End Date [facility] [address] [place] [address] PCP - General Geriatric Medicine 03/05/23 C D Still Operator Relationship Specialty Start Date End Date Teodoro Cameron MD [address] [place] [address] PCP - General Geriatric Medicine 03/05/23 C D Still Operator Relationship Specialty Start Date End Date BiankaTeodoro MD [facility] [place] [address] PCP - General Geriatric Medicine 03/05/23 C D Still Operator Relationship Specialty Start Date End Date Teodoro Cameron MD [facility] [email or web address] [address] PCP - General Geriatric Medicine 03/05/23 Team Status: Inactive Member Role Status Dates Kelsey FIERRO Attending Provider Active Team Status: Active Member Role Status Dates Kelsey FIERRO Attending Provider Active C D Still Operator Relationship Specialty Start Date End Date Teodoro Cameron MD [facility] [email or web address] [address] PCP - General Geriatric Medicine 03/05/23 C D Still Operator Relationship Specialty Start Date End Date Teodoro Cameron MD [facility] [place] [address] PCP - General Geriatric Medicine 03/05/23 C D Still Operator Relationship Specialty Start Date End Date Teodoro Cameron MD [facility] [email or web address] [address] PCP - General Geriatric Medicine 03/05/23 C D Still Operator Relationship Specialty Start Date End Date Kelsey Stevens MD [address] [place] [address] [address] [place] [address] PCP - General Family Medicine 03/11/25 C D Still Operator Relationship Specialty Start Date End Date Kelsey Stevens MD [address] [place] [address] [address] [place] [address] PCP - General Family Medicine 03/11/25 Goals (unrecognized section and content) Goals may be documented in a n alternate sectionGoals may be documented in an alternate section FOR RECORDS PERTAINING TO PATIENTS WHO ARE OR HAVE BEEN ENROLLED IN A CHEMICAL DEPENDENCY/SUBSTANCEABUSE PROGRAM, SOME INFORMATION MAY BE OMITTED. This clinical summary was aggregated from multiple sources. Caution should be exercised in using it in the provision of clinical care. This summary normalizes information from multiple sources, and as a consequence, information in this document may materially change the coding, format and clinical context of patient data. In addition, data may be omitted in some cases. CLINICAL DECISIONS SHOULD BE BASED ON THE PRIMARY CLINICAL RECORDS. [email or web address] provides no warranty or guarantee of the accuracy or completeness of information in this document.
[2025-04-16 09:07] LABS: AST(SGOT) 19 U/L (<=37); Alanine Aminotransfer ALT/SGPT 17 U/L (<=46); Albumin, Serum 3.8 g/dL (3.4-4.8); Alkaline Phosphatase 78 U/L (40-129); Anion Gap 9 (5-15); BUN 28 mg/dL (4-19); BUN/Creat Ratio 33.5 RATIO (10-20); Bilirubin, Direct 0.18 mg/dL (0.00-0.30); Carbon Dioxide 27.3 mmol/L (21.0-32.0); Chloride 103 mmol/L (98-108); Cholesterol 105 mg/dL (<=200); Creatinine, Serum 0.82 mg/dL (0.70-1.20); EST Glomerular Filtration Rate 95 (>60); Globulin 2.9 g/dL (2.2-4.2); Glucose 92 mg/dL (70-99); High Density Lipoprotein 24 mg/dL; Low Density Lipoprotein Calc. 62 mg/dL; Potassium 4.1 mmol/L (3.3-5.1); Protein, Total 6.7 g/dL (5.9-8.4); Sodium Level 139 mmol/L (133-145); Total Bilirubin 0.48 mg/dL (0.00-1.30); Triglycerides 97 mg/dL; Very Low Density Lipoprotein 19 mg/dL (5-40); cholesterol:hdl ratio screen 4.36
== END ==
LOC: OLS.ACW100 05:00
PROVIDERS: Visit Provider Family Medicine
DX: D73.5 Infarction of spleen (principal); K20.90 Esophagitis, unspecified without bleeding; Z74.1 Need for assistance with personal care; R13.12 Dysphagia, oropharyngeal phase; R53.1 Weakness; R53.81 Other malaise; K31.84 Gastroparesis
CPT/HCPCS: 36415; 80048; 80061; 80076

== ENCOUNTER → 2025-08-16 05:00 | Outpatient (REF) | payer MEDICARE, MEDICAID, SELFPAY ==
[2025-08-16 06:45] LABS: Hematocrit 38.8 % (40-54); Hemoglobin 12.8 g/dL (13.0-16.5); Mean Corp Hgb Conc 33.0 g/dL (32-36); Mean Corpuscular Volume 89.4 fL (80-94); Mean Platelet Vol. 9.5 fl (6.2-12.0); Platelet Count 289 K/mm3 (150-450); RBC Distribution Width CV 12.6 % (11.6-14.6); RBC Distribution Width SD 41.2 fl (35.1-43.9); Red Blood Count 4.34 M/mm3 (4.6-6.2); White Blood Count 6.9 K/mm3 (4.4-11.0)
[2025-08-16 07:00] LABS: AST(SGOT) 16 U/L (<=37); Alanine Aminotransfer ALT/SGPT 14 U/L (<=46); Albumin, Serum 4.0 g/dL (3.4-4.8); Alkaline Phosphatase 80 U/L (40-129); Anion Gap 9 (5-15); BUN 29 mg/dL (4-19); BUN/Creat Ratio 33.2 RATIO (10-20); Bilirubin, Direct 0.21 mg/dL (0.00-0.30); Calcium,Total 9.3 mg/dL (7.6-11.0); Carbon Dioxide 29.8 mmol/L (21.0-32.0); Chloride 103 mmol/L (98-108); Cholesterol 109 mg/dL (<=200); Globulin 3.1 g/dL (2.2-4.2); Glucose 92 mg/dL (70-99); Low Density Lipoprotein Calc. 56 mg/dL; Potassium 4.4 mmol/L (3.3-5.1); Triglycerides 115 mg/dL; Very Low Density Lipoprotein 23 mg/dL (5-40); cholesterol:hdl ratio screen 3.59
== END ==
LOC: OLS.ACW100 05:00
PROVIDERS: Visit Provider Family Medicine
DX: D73.5 Infarction of spleen (principal); K20.90 Esophagitis, unspecified without bleeding; K31.84 Gastroparesis; Z74.1 Need for assistance with personal care; R13.12 Dysphagia, oropharyngeal phase; R53.1 Weakness; R53.81 Other malaise
CPT/HCPCS: 36415; 80048; 80061; 80076; 85027